=== PATIENT | male | born 1950 | race Caucasian/White ===

== ENCOUNTER 2016-07-17 16:14 | Observation (INO) | payer BC, MEDICARE ==
[2016-07-17] MEDS ORDERED: SODIUM CHLORIDE 0.9% 1,000 ML IV STA (16:15)
[2016-07-17] MEDS ORDERED: SODIUM CHLORIDE 0.9% 500 ML IV STA (16:15)
--- NOTE | 2016-07-17 17:12 | ED ---
General Adult HPI - General Chief complaint: Altered Mental Status Stated complaint: altered mental status Time Seen by Provider: 07/17/16 16:15 Source: patient, EMS, RN notes reviewed, old records reviewed Mode of arrival: EMS Limitations: altered mental status - History of Present Illness Initial comments: This is a 62-year-old male ER for evaluation of altered status, patient's altered mental status revulsion and unresponsiveness. Patient was sent to emergency room for evaluation by family after he was, acting in an [place] the [place], he seemed to be dazed, not with it, not paying attention. Patient is noticed to have fentanyl patches was taking pain medication at home - Related Data Home Medications Medication Instructions Recorded Confirmed Doxazosin Mesylate 8 mg PO DAILY 04/16/15 07/17/16 Naproxen Sodium [Naproxen Sodium 500 mg PO BID PRN 04/16/15 07/17/16 ER] Pregabalin [Lyrica] 75 mg PO BID 04/16/15 07/17/16 cloNIDine HCL [Catapres] 1 tab PO BID 04/16/15 07/17/16 fentaNYL 100MCG/HR PATCH 1 patch TOPICAL Q72H 04/16/15 07/17/16 [Duragesic 100MCG/HR] Cyclobenzaprine [Flexeril] 10 mg PO TID PRN 07/17/16 07/17/16 Dextroamphetamine/Amphetamine 30 mg PO BID PRN 07/17/16 07/17/16 [Adderall] traMADol HCL [Ultram] 50 mg PO QID PRN 07/17/16 07/17/16 traZODone HCL [Oleptro ER] 150 mg PO HS 07/17/16 07/17/16 Allergies Allergy/AdvReac Type Severity Reaction Status Date / Time No Known Allergies Allergy Verified 05/07/15 23:50 Review of Systems ROS Statement: Those systems with pertinent positive or pertinent negative responses have been documented in the HPI. ROS Other: All systems not noted in ROS Statement are negative. Past Medical History Past Medical History: Asthma, Osteoarthritis (OA) History of Any Multi-Drug Resistant Organisms: None Reported Past Surgical History: Back Surgery, Orthopedic Surgery Additional Past Surgical History / Comment(s): shoulder aND KNEE Past Psychological History: No Psychological Hx Reported Smoking Status: Current every day smoker Past Alcohol Use History: None Reported Past Drug Use History: None Reported General Exam Limitations: altered mental status General appearance: alert, in no apparent distress, lethargic Head exam: Present: atraumatic, normocephalic, normal inspection Eye exam: Present: normal appearance, PERRL, EOMI. Absent: scleral icterus, conjunctival injection, periorbital swelling ENT exam: Present: normal exam, mucous membranes moist Neck exam: Present: normal inspection. Absent: tenderness, meningismus, lymphadenopathy Respiratory exam: Present: normal lung sounds bilaterally. Absent: respiratory distress, wheezes, rales, rhonchi, stridor Cardiovascular Exam: Present: regular rate, normal rhythm, normal heart sounds. Absent: systolic murmur, diastolic murmur, rubs, gallop, clicks GI/Abdominal exam: Present: soft, normal bowel sounds. Absent: distended, tenderness, guarding, rebound, rigid Extremities exam: Present: normal inspection, full ROM, normal capillary refill. Absent: tenderness, pedal edema, joint swelling, calf tenderness Back exam: Present: normal inspection Neurological exam: Present: alert, oriented X3, CN II-XII intact Psychiatric exam: Present: normal affect, normal mood Skin exam: Present: warm, dry, intact, normal color. Absent: rash Course Vital Signs 07/17/16 07/17/16 07/17/16 16:37 17:02 17:40 Temperature 97.9 F Pulse Rate 83 75 73 Respiratory 18 18 18 Rate Blood Pressure 108/64 95/65 98/60 O2 Sat by Pulse 95 98 Oximetry 07/17/16 07/17/16 18:20 20:00 Temperature 98 F Pulse Rate 72 69 Respiratory 16 16 Rate Blood Pressure 125/70 111/74 O2 Sat by Pulse 96 97 Oximetry - Reevaluation(s) Reevaluation #1: 07/17/16 20:52 After waiting for patient to wake up, giving Narcan patient waking up patient became agitated and is continues to fall back asleep. Patient will need to be admitted for evaluation and treatment, wearing off of drugs EKG Findings - EKG Comments: EKG Findings:: EKG shows sinus rhythm rate of 77, WA 166, crit 34, QTC 439 Medical Decision Making - Medical Decision Making 65 male here for altered mental status, patient does have accidental polysubstance abuse with opiate ingestion, patient unresponsive, unable to respond enough to leave her wake up. Patient does respond to Narcan mildly but then falls back asleep. Patient will be admitted for further evaluation and treatment - Lab Data Result diagrams: 07/17/16 16:30 07/17/16 16:30 Lab Results 07/17/16 07/17/16 07/17/16 Range/Units 16:30 16:30 16:30 WBC 5.9 (3.8-10.6) k/uL RBC 4.00 L (4.30-5.90) m/uL Hgb 11.6 L (13.0-17.5) gm/dL Hct 36.9 L (39.0-53.0) % MCV 92.2 (80.0-100.0) fL MCH 29.0 (25.0-35.0) pg MCHC 31.5 (31.0-37.0) g/dL RDW 14.4 (11.5-15.5) % Plt Count 274 (150-450) k/uL Neutrophils % 62 % Lymphocytes % 27 % Monocytes % 6 % Eosinophils % 3 % Basophils % 1 % Neutrophils # 3.7 (1.3-7.7) k/uL Lymphocytes # 1.6 (1.0-4.8) k/uL Monocytes # 0.3 (0-1.0) k/uL Eosinophils # 0.2 (0-0.7) k/uL Basophils # 0.0 (0-0.2) k/uL PT (9.0-12.0) sec INR (<1.1) APTT (22.0-30.0) sec Sodium 143 (137-145) mmol/L Potassium 4.2 (3.5-5.1) mmol/L Chloride 106 (98-107) mmol/L Carbon Dioxide 26 (22-30) mmol/L Anion Gap 11 mmol/L BUN 36 H (9-20) mg/dL Creatinine 1.28 H (0.66-1.25) mg/dL Est GFR (MDRD) Af Amer >60 (>60 ml/min/1.73 sqM) Est GFR (MDRD) Non-Af 56 (>60 ml/min/1.73 sqM) Glucose 90 (74-99) mg/dL Plasma Lactic Acid Allen (0.7-2.0) mmol/L Calcium 9.5 (8.4-10.2) mg/dL Phosphorus 4.1 (2.5-4.5) mg/dL Magnesium 1.8 (1.6-2.3) mg/dL Total Bilirubin 0.4 (0.2-1.3) mg/dL AST 23 (17-59) U/L ALT 33 (21-72) U/L Alkaline Phosphatase 132 H (38-126) U/L Total Creatine Kinase 76 (55-170) U/L CK-MB (CK-2) 1.0 (0.0-2.4) ng/mL CK-MB (CK-2) Rel Index 1.3 Troponin I <0.012 (0.000-0.034) ng/mL Total Protein 6.9 (6.3-8.2) g/dL Albumin 3.8 (3.5-5.0) g/dL 07/17/16 07/17/16 Range/Units 16:30 16:30 WBC (3.8-10.6) k/uL RBC (4.30-5.90) m/uL Hgb (13.0-17.5) gm/dL Hct (39.0-53.0) % MCV (80.0-100.0) fL MCH (25.0-35.0) pg MCHC (31.0-37.0) g/dL RDW (11.5-15.5) % Plt Count (150-450) k/uL Neutrophils % % Lymphocytes % % Monocytes % % Eosinophils % % Basophils % % Neutrophils # (1.3-7.7) k/uL Lymphocytes # (1.0-4.8) k/uL Monocytes # (0-1.0) k/uL Eosinophils # (0-0.7) k/uL Basophils # (0-0.2) k/uL PT 10.3 (9.0-12.0) sec INR 1.0 (<1.1) APTT 24.8 (22.0-30.0) sec Sodium (137-145) mmol/L Potassium (3.5-5.1) mmol/L Chloride (98-107) mmol/L Carbon Dioxide (22-30) mmol/L Anion Gap mmol/L BUN (9-20) mg/dL Creatinine (0.66-1.25) mg/dL Est GFR (MDRD) Af Amer (>60 ml/min/1.73 sqM) Est GFR (MDRD) Non-Af (>60 ml/min/1.73 sqM) Glucose (74-99) mg/dL Plasma Lactic Acid Allen 0.6 L (0.7-2.0) mmol/L Calcium (8.4-10.2) mg/dL Phosphorus (2.5-4.5) mg/dL Magnesium (1.6-2.3) mg/dL Total Bilirubin (0.2-1.3) mg/dL AST (17-59) U/L ALT (21-72) U/L Alkaline Phosphatase (38-126) U/L Total Creatine Kinase (55-170) U/L CK-MB (CK-2) (0.0-2.4) ng/mL CK-MB (CK-2) Rel Index Troponin I (0.000-0.034) ng/mL Total Protein (6.3-8.2) g/dL Albumin (3.5-5.0) g/dL - Radiology Data Radiology results: report reviewed, image reviewed Disposition Clinical Impression: Altered mental status, Accidental drug overdose, Opiate misuse Disposition: ADMITTED IP TO THIS HOSP Condition: Fair Instructions: Altered Mental Status (ED) Referrals: Zenaida Avalos MD [Primary Care Provider] - 1-2 days
[2016-07-17 17:13] LABS: Basophils % (A) 1 %; CH 30.1; CHCM 32.7; Eosinophils # (A) 0.2 k/uL (0-0.7); Eosinophils % (A) 3 %; HCT 36.9 % (39.0-53.0); HDW 2.58; HGB 11.6 gm/dL (13.0-17.5); Luc # (Auto) 0.11; Luc % (Auto) 2; Lymphocytes # (A) 1.6 k/uL (1.0-4.8); Lymphocytes % (A) 27 %; MCHC 31.5 g/dL (31.0-37.0); MCV 92.2 fL (80.0-100.0); Mean Platelet Volume 7.1; Monocytes # (A) 0.3 k/uL (0-1.0); Monocytes % (A) 6 %; Neutrophils # (A) 3.7 k/uL (1.3-7.7); Neutrophils % (A) 62 %; RDW 14.4 % (11.5-15.5); WBC 5.9 k/uL (3.8-10.6); WBC (Perox) 5.87
[2016-07-17 17:21] LABS: ALT 33 U/L (21-72); AST 23 U/L (17-59); Alkaline Phosphatase 132 U/L (38-126); Anion Gap 11 mmol/L; Blood Urea Nitrogen 36 mg/dL (9-20); Calcium 9.5 mg/dL (8.4-10.2); Carbon Dioxide 26 mmol/L (22-30); Chloride 106 mmol/L (98-107); Glucose 90 mg/dL (74-99); Magnesium 1.8 mg/dL (1.6-2.3); Non-African American GFR(MDRD) 56 (>60 ml/min/1.73 sqM); Partial Thromboplastin Time 24.8 sec (22.0-30.0); Phosphorous 4.1 mg/dL (2.5-4.5); Potassium 4.2 mmol/L (3.5-5.1); Prothrombin Time 10.3 sec (9.0-12.0); Sodium 143 mmol/L (137-145); Total Bilirubin 0.4 mg/dL (0.2-1.3); Total Protein 6.9 g/dL (6.3-8.2)
--- NOTE | 2016-07-17 17:28 | CT ---
EXAMINATION TYPE: CT brain wo con DATE OF EXAM: 07/17/2016 5:23 PM COMPARISON: NONE HISTORY: Patient shows signs of altered mental status. CT DLP: 788.8 mGycm Automated exposure control for dose reduction was used. FINDINGS: Ventricles have normal size. There is no mass effect or midline shift. There is no sign of intracrani al hemorrhage. The calvarium is intact. IMPRESSION: Negative unenhanced head CT scan.
[2016-07-17 17:33] LABS: Creatine Kinase 76 U/L (55-170)
[2016-07-17] MEDS ORDERED: NALOXONE 0.4 MG/ML 1 ML VIAL IV STA (17:35)
[2016-07-17 17:46] LABS: Troponin I <0.012 ng/mL (0.000-0.034)
--- NOTE | 2016-07-17 17:52 | XR ---
EXAMINATION TYPE: XR chest 2V DATE OF EXAM: 07/17/2016 5:30 PM COMPARISON: 08/09/2013 HISTORY: Weakness and altered mental status TECHNIQUE: Frontal and lateral views of the chest are obtained. FINDINGS: There is interstitial edema. There is poor inspiration. There is a left shoulder prosthesi s. There is a neurostimulator in the mid thoracic spine. IMPRESSION: There is some pulmonary edema that appears new compare to old exam and could relate to a cute heart failure.
[2016-07-17] MEDS ORDERED: LORazepam 2 MG/ML SYRINGE IV STA (17:56)
[2016-07-17] MEDS ORDERED: NALOXONE 0.4 MG/ML 10 ML VIAL IVP STA (20:25)
[2016-07-17] MEDS ORDERED: SODIUM CHLORIDE 0.9% 1,000 ML IV ONE (20:50)
[2016-07-17 22:18] VITALS: BMI 23.3
[2016-07-18 07:45] VITALS: RESP 18
[2016-07-18] MEDS ORDERED: ENOXAPARIN 40 MG/0.4 ML SYRINGE SQ SCH (09:00)
[2016-07-18 12:05] VITALS: BP 97/51; PULSE 66; TEMP 98.2
--- NOTE | 2016-07-18 21:25 | P.HPIM ---
History of Present Illness H&P Date: 07/18/16 (Discharge summary as well) Chief Complaint: Change in mental status 65-year-old gentleman with history of chronic low back pain currently on multiple pain medications for relief was brought into the hospital due to odd behavior and slight confusion at a general store on the day of admission. Patient was initially evaluated in the ER. There was some concern of an opioid overdose. Patient was given a dose of Narcan slightly improved his mentation. However as patient has a fentanyl patch patient was admitted for overnight observation to ensure stability in the mental status. During the time of my examination patient was awake and able to answer questions appropriately. Was able to ambulate without any difficulty. States that he has a long history of chronic low back problems and has even received a neurostimulator. Patient denies using more medications and recommended and no change in his pain medication regimen has been made in the recent times. Patient stated he removed his fentanyl patch and replaced it a few hours prior to the current event. Denies having any chest pain, difficulty breathing, nausea, vomiting, abdominal pain, urinary urgency or frequency, diarrhea or constipation at this time. Review of Systems All systems: negative (Noted in HPI) Past Medical History Past Medical History: Asthma, Osteoarthritis (OA) History of Any Multi-Drug Resistant Organisms: None Reported Past Surgical History: Back Surgery, Orthopedic Surgery Additional Past Surgical History / Comment(s): Rt shoulder and unknown knee. Pain stimulator in back. Past Anesthesia/Blood Transfusion Reactions: No Reported Reaction Past Psychological History: No Psychological Hx Reported Smoking Status: Current every day smoker Past Alcohol Use History: None Reported Past Drug Use History: None Reported Medications and Allergies Home Medications Medication Instructions Recorded Confirmed Type Doxazosin Mesylate 8 mg PO DAILY 04/16/15 07/17/16 History Naproxen Sodium [Naproxen Sodium 500 mg PO BID PRN 04/16/15 07/17/16 History ER] Pregabalin [Lyrica] 75 mg PO BID 04/16/15 07/17/16 History cloNIDine HCL [Catapres] 1 tab PO BID 04/16/15 07/17/16 History fentaNYL 100MCG/HR PATCH 1 patch TOPICAL Q72H 04/16/15 07/17/16 History [Duragesic 100MCG/HR] Cyclobenzaprine [Flexeril] 10 mg PO TID PRN 07/17/16 07/17/16 History Dextroamphetamine/Amphetamine 30 mg PO BID PRN 07/17/16 07/17/16 History [Adderall] traMADol HCL [Ultram] 50 mg PO QID PRN 07/17/16 07/17/16 History traZODone HCL [Oleptro ER] 150 mg PO HS 07/17/16 07/17/16 History Allergies Allergy/AdvReac Type Severity Reaction Status Date / Time No Known Allergies Allergy Verified 05/07/15 23:50 Physical Exam Vitals: Vital Signs Temp Pulse Pulse Resp BP BP Pulse Ox 07/18/16 12:00 98.2 F 66 18 97/51 94 L 07/18/16 08:00 87 18 07/18/16 07:39 97.8 F 87 18 101/64 90 L 07/18/16 04:00 98.1 F 83 16 104/63 92 L 07/18/16 00:00 76 16 07/17/16 22:30 83 16 07/17/16 22:12 98.0 F 85 16 110/77 92 L 07/17/16 22:00 97 F L 69 18 121/69 97 Intake and Output 07/18/16 07/18/16 07/18/16 06:59 14:59 22:59 Intake Total 558 Balance 558 Intake: Oral 558 Other: Voiding Method Toilet # Voids 1 Gen Appearance alert oriented 3 in no distress Lungs currently clear to auscultation Abdomen is soft nontender no organomegaly Neurologically no focal motor or sensory deficit failure nurse to till 12 grossly intact. Pupils equal round reactive light and accommodation. Extraocular movements are intact Strength is 5 out of 5 in all extremities. Lower back exam there is no similar devise on the right lower back. Tenderness to palpation in multiple areas in the lumbar spine. Straight leg is positive. Heart regular rate and rhythm no murmurs appreciated Results CBC & Chem 7: 07/17/16 16:30 07/17/16 16:30 Thrombosis Risk Factor Assmnt - Choose All That Apply Each Risk Factor Represents 2 Points: Age 61-74 years Thrombosis Risk Factor Assessment Total Risk Factor Score: 2 Thrombosis Risk Factor Assessment Level: Low Risk Assessment and Plan Plan: #1 acute toxic encephalopathy secondary to opiate overdose #2 chronic low back pain #3 history of hypertension #4 peripheral neuropathy #5 underlying depression #6 chronic opiate use Plan Patient was monitored for 24 hours no change in medication is made. Patient is stable at time of discharge. This likely a combination of patient not removing his final patch on time. I'm continuing his other pain medications. Patient is on multiple short acting pain medications for refractory pain. Did discuss the patient should be seen by a pain specialist in order to change his regimen. Patient is also on Adderall to fight the consequences of pain medications. Patient may benefit from either been on long-acting morphine or even methadone for better control and to prevent further episodes. This was discussed with the patient and his daughter who agree with the plan. Patient is discharged home. Patient is to follow-up with Dr. Avalos
== END 2016-07-18 14:30 | disposition home or self-care (01) ==
LOC: EC 16:14 → 3OBS 20:50
PROVIDERS: ADMIT Hospitalist; ATTEND Hospitalist
DX: T40.601A Poisoning by unspecified narcotics, accidental (unintentional), initial encounter (principal); G92 Toxic encephalopathy; G89.29 Other chronic pain; M54.5 Low back pain; I10 Essential (primary) hypertension; G62.9 Polyneuropathy, unspecified; F32.9 Major depressive disorder, single episode, unspecified; M19.90 Unspecified osteoarthritis, unspecified site; F17.200 Nicotine dependence, unspecified, uncomplicated; Z79.899 Other long term (current) drug therapy; Z79.891 Long term (current) use of opiate analgesic; Y92.512 Supermarket, store or market as the place of occurrence of the external cause
CPT/HCPCS: 99285; 96374; 96375; 96376; 96361 ×2; 36415; 93005; 80053; 82550; 82553; 83605; 83735; 84100; 84484; 85025; 85610; 85730; 71020; 70450; G0378 ×2; J2060; J2310 ×2; J1650; 96372

== ENCOUNTER 2018-06-19 18:37 | Inpatient (IN) | payer MEDICARE ==
[2018-06-19 19:40] LABS: Glucose,Whole Blood 124 mg/dL (75-99)
[2018-06-19] MEDS ORDERED: SODIUM CHLORIDE 0.9% 1,000 ML IV ONE (19:43)
[2018-06-19] MEDS ORDERED: ACETAMINOPHEN IV (For NPO) 1,000 MG in EMPTY BAG 1 BAG IVPB STA (19:46)
[2018-06-19 19:58] LABS: Basophils % (A) 0 %; Eosinophils # (A) 0.1 k/uL (0-0.7); Eosinophils % (A) 2 %; HCT 34.4 % (39.0-53.0); HGB 11.5 gm/dL (13.0-17.5); Lymphocytes # (A) 0.6 k/uL (1.0-4.8); Lymphocytes % (A) 7 %; MCH 28.7 pg (25.0-35.0); MCHC 33.5 g/dL (31.0-37.0); MCV 85.7 fL (80.0-100.0); Mean Platelet Volume 6.4; Monocytes # (A) 0.3 k/uL (0-1.0); Monocytes % (A) 3 %; Neutrophils # (A) 8.1 k/uL (1.3-7.7); Neutrophils % (A) 88 %; Platelet Count 294 k/uL (150-450); RBC 4.01 m/uL (4.30-5.90); WBC 9.3 k/uL (3.8-10.6)
[2018-06-19 20:06] LABS: INR 0.9 (<1.2); Partial Thromboplastin Time 26.5 sec (22.0-30.0); Prothrombin Time 9.7 sec (9.0-12.0)
[2018-06-19 20:07] LABS: Albumin 4.1 g/dL (3.5-5.0); Calcium 9.2 mg/dL (8.4-10.2); Potassium 4.5 mmol/L (3.5-5.1); Total Bilirubin 0.5 mg/dL (0.2-1.3); Total Protein 7.5 g/dL (6.3-8.2)
[2018-06-19 20:11] LABS: Creatine Kinase 111 U/L (55-170)
--- NOTE | 2018-06-19 20:19 | CT ---
EXAMINATION: CT brain wo con DATE AND TIME: 06/19/2018 8:11 PM CLINICAL INDICATION: PHH; Pain TECHNIQUE: Standard departmental protocol.; 1107.4; COMPARISON: 07/17/2016 FINDINGS: The calvarium is intact. There is no intracranial hemorrhage. There is no intracranial mass or mass effect. No definite new intra-axial or extra-axial attenuation defect. The paranasal sinuses, middle ear cavities, and mastoid sinus air cells are clear. The orbits are unremarkable. IMPRESSION: NO ACUTE PROCESS.
[2018-06-19 20:22] LABS: Creatine Kinase MB 1.4 ng/mL (0.0-2.4); Troponin I <0.012 ng/mL (0.000-0.034)
--- NOTE | 2018-06-19 20:35 | ED ---
General Adult HPI - General Chief complaint: Fall Stated complaint: Fell Time Seen by Provider: 06/19/18 19:25 Source: patient Mode of arrival: wheelchair Limitations: no limitations - History of Present Illness Initial comments: 67-year-old male patient presents to the emergency department today for evaluation after expressing a fall. Daughter is in room and provides most of history as patient does exhibit altered mental status. Patient was walking through the store around 1745 this evening when he started stumbling and falling into things. Daughter states he then fell. She is unsure if he hit his head. He is reporting right shoulder and right hip pain. She states the patient has been acting differently since the fall. States that his speech has been somewhat slurred, his been sleeping more than usual, and complaining of increased pain. She states that he does have a history of COPD but she is unsure what other medical problems he may have. Patient states he does have a headache. Patient denies any recent rash, fever, chills, shortness breath, chest pain, abdominal pain, nausea, vomiting, diarrhea, constipation, dizziness , weakness, hematuria, dysuria, urinary urgency, urinary frequency, or any other complaints. - Related Data Home Medications Medication Instructions Recorded Confirmed Doxazosin Mesylate 8 mg PO DAILY 04/16/15 07/17/16 Naproxen Sodium [Naproxen Sodium 500 mg PO BID PRN 04/16/15 07/17/16 ER] Pregabalin [Lyrica] 75 mg PO BID 04/16/15 07/17/16 cloNIDine HCL [Catapres] 1 tab PO BID 04/16/15 07/17/16 fentaNYL 100MCG/HR PATCH 1 patch TOPICAL Q72H 04/16/15 07/17/16 [Duragesic 100MCG/HR] Cyclobenzaprine [Flexeril] 10 mg PO TID PRN 07/17/16 07/17/16 Dextroamphetamine/Amphetamine 30 mg PO BID PRN 07/17/16 07/17/16 [Adderall] traMADol HCL [Ultram] 50 mg PO QID PRN 07/17/16 07/17/16 traZODone HCL [Oleptro ER] 150 mg PO HS 07/17/16 07/17/16 Allergies Allergy/AdvReac Type Severity Reaction Status Date / Time No Known Allergies Allergy Verified 06/19/18 18:55 Review of Systems ROS Statement: Those systems with pertinent positive or pertinent negative responses have been documented in the HPI. ROS Other: All systems not noted in ROS Statement are negative. Past Medical History Past Medical History: Asthma, Osteoarthritis (OA) History of Any Multi-Drug Resistant Organisms: None Reported Past Surgical History: Back Surgery, Orthopedic Surgery Additional Past Surgical History / Comment(s): Rt shoulder and unknown knee. Pain stimulator in back. Past Anesthesia/Blood Transfusion Reactions: No Reported Reaction Past Psychological History: No Psychological Hx Reported Smoking Status: Current every day smoker Past Alcohol Use History: None Reported Past Drug Use History: None Reported General Exam Limitations: no limitations General appearance: in no apparent distress, lethargic, other (This is a well- developed, well-nourished adult male who appears lethargic, has difficulty staying awake. Vital signs upon presentation are temperature 100.4F, pulse 116 , respirations 24, blood pressure 127/74, pulse ox 91% on room air.) Eye exam: Present: other (Patient has fixed pupil on the right side at approximately 3 mm. Left pupil is briskly reactive to light.). Absent: nystagmus ENT exam: Present: normal exam, normal oropharynx, mucous membranes moist Neck exam: Present: normal inspection. Absent: tenderness, meningismus, lymphadenopathy Respiratory exam: Present: normal lung sounds bilaterally. Absent: respiratory distress, wheezes, rales, rhonchi, stridor Cardiovascular Exam: Present: regular rate, normal rhythm, normal heart sounds. Absent: systolic murmur, diastolic murmur, rubs, gallop, clicks GI/Abdominal exam: Present: soft, normal bowel sounds. Absent: distended, tenderness, guarding, rebound, rigid Extremities exam: Present: normal inspection, full ROM, tenderness (Tenderness to the right shoulder), normal capillary refill. Absent: pedal edema, joint swelling, calf tenderness Neurological exam: Present: CN II-XII intact. Absent: alert, oriented X3 ( Oriented 2) Psychiatric exam: Present: normal affect, normal mood Skin exam: Present: warm, dry, intact, normal color. Absent: rash Course Vital Signs 06/19/18 06/19/18 06/19/18 18:55 19:34 20:27 Temperature 100.4 F H 99.8 F H Pulse Rate 116 H 101 H Pulse Rate [ 115 H Solutions Architect ] Respiratory 24 20 18 Rate Blood Pressure 127/74 107/91 O2 Sat by Pulse 91 L 96 Oximetry 06/19/18 06/19/18 22:00 23:12 Temperature Pulse Rate 91 92 Pulse Rate [ Solutions Architect ] Respiratory 18 17 Rate Blood Pressure 109/69 107/64 O2 Sat by Pulse 95 95 Oximetry EKG Findings - EKG Comments: EKG Findings:: EKG obtained in 195 shows sinus tachycardia with a ventricular rate of 110, CA interval 154, QRS duration 82, QT 318, QTC 430. No evidence of ST elevation or depression. Medical Decision Making - Medical Decision Making 67-year-old male patient presented to the emergency department today with altered mental status, fever, and hypoxia. Patient was stumbling into things at the store and did have a fall prior to arrival. Physical examination did reveal coarse breath sounds. The patient was very drowsy and unable to stay awake during exam. Labs reviewed and did reveal a normal white blood cell count of 9.3, hemoglobin 11.5, BUN 30, creatinine 1.27, urinalysis showed trace protein but no other abnormalities, patient struck screen was positive for opiates. Did do x-rays of the right shoulder, right hip which were negative for any fractures. Chest x-ray did show pneumonia versus mass to the right lung , we did obtain computed tomography scan of the chest with contrast to differentiate, there was evidence of bronchopneumonia and a 5 cm mass in the right lung. Computed tomography scan of the brain was negative. I did discuss findings and results with the patient, he does remain quite drowsy but does answer questions appropriately. Vital signs have improved. We will start antibiotics for pneumonia. Blood cultures have been sent. Lactic acid was within normal range. Patient will be admitted to Dr. Benson with pulmonary consult. - Lab Data Result diagrams: 06/19/18 19:17 06/19/18 19:17 Lab Results 06/19/18 06/19/18 06/19/18 Range/Units 19:17 19:17 19:17 WBC 9.3 (3.8-10.6) k/uL RBC 4.01 L (4.30-5.90) m/uL Hgb 11.5 L (13.0-17.5) gm/dL Hct 34.4 L (39.0-53.0) % MCV 85.7 (80.0-100.0) fL MCH 28.7 (25.0-35.0) pg MCHC 33.5 (31.0-37.0) g/dL RDW 16.0 H (11.5-15.5) % Plt Count 294 (150-450) k/uL Neutrophils % 88 % Lymphocytes % 7 % Monocytes % 3 % Eosinophils % 2 % Basophils % 0 % Neutrophils # 8.1 H (1.3-7.7) k/uL Lymphocytes # 0.6 L (1.0-4.8) k/uL Monocytes # 0.3 (0-1.0) k/uL Eosinophils # 0.1 (0-0.7) k/uL Basophils # 0.0 (0-0.2) k/uL PT (9.0-12.0) sec INR (<1.2) APTT (22.0-30.0) sec Sodium 137 (137-145) mmol/L Potassium 4.5 (3.5-5.1) mmol/L Chloride 103 (98-107) mmol/L Carbon Dioxide 23 (22-30) mmol/L Anion Gap 11 mmol/L BUN 30 H (9-20) mg/dL Creatinine 1.27 H (0.66-1.25) mg/dL Est GFR (CKD-EPI)AfAm 67 (>60 ml/min/1.73 sqM) Est GFR (CKD-EPI)NonAf 58 (>60 ml/min/1.73 sqM) Glucose 101 H (74-99) mg/dL POC Glucose (mg/dL) (75-99) mg/dL POC Glu Fur Grader ID Plasma Lactic Acid Allen (0.7-2.0) mmol/L Calcium 9.2 (8.4-10.2) mg/dL Total Bilirubin 0.5 (0.2-1.3) mg/dL AST 24 (17-59) U/L ALT 18 L (21-72) U/L Alkaline Phosphatase 130 H (38-126) U/L Total Creatine Kinase 111 (55-170) U/L CK-MB (CK-2) 1.4 (0.0-2.4) ng/mL CK-MB (CK-2) Rel Index 1.3 Troponin I <0.012 (0.000-0.034) ng/mL Total Protein 7.5 (6.3-8.2) g/dL Albumin 4.1 (3.5-5.0) g/dL Urine Color Urine Appearance (Clear) Urine pH (5.0-8.0) Ur Specific [place] (1.001-1.035) Urine Protein (Negative) Urine Glucose (UA) (Negative) Urine Ketones (Negative) Urine Blood (Negative) Urine Nitrite (Negative) Urine Bilirubin (Negative) Urine Urobilinogen (<2.0) mg/dL Ur Leukocyte Esterase (Negative) Urine Opiates Screen (NotDetected) Ur Oxycodone Screen (NotDetected) Urine Methadone Screen (NotDetected) Ur Propoxyphene Screen (NotDetected) Ur Barbiturates Screen (NotDetected) U Tricyclic Antidepress (NotDetected) Ur Phencyclidine Scrn (NotDetected) Ur Amphetamines Screen (NotDetected) U Methamphetamines Scrn (NotDetected) U Benzodiazepines Scrn (NotDetected) Urine Cocaine Screen (NotDetected) U Marijuana (THC) Screen (NotDetected) 06/19/18 06/19/18 06/19/18 Range/Units 19:17 19:17 19:26 WBC (3.8-10.6) k/uL RBC (4.30-5.90) m/uL Hgb (13.0-17.5) gm/dL Hct (39.0-53.0) % MCV (80.0-100.0) fL MCH (25.0-35.0) pg MCHC (31.0-37.0) g/dL RDW (11.5-15.5) % Plt Count (150-450) k/uL Neutrophils % % Lymphocytes % % Monocytes % % Eosinophils % % Basophils % % Neutrophils # (1.3-7.7) k/uL Lymphocytes # (1.0-4.8) k/uL Monocytes # (0-1.0) k/uL Eosinophils # (0-0.7) k/uL Basophils # (0-0.2) k/uL PT 9.7 (9.0-12.0) sec INR 0.9 (<1.2) APTT 26.5 (22.0-30.0) sec Sodium (137-145) mmol/L Potassium (3.5-5.1) mmol/L Chloride (98-107) mmol/L Carbon Dioxide (22-30) mmol/L Anion Gap mmol/L BUN (9-20) mg/dL Creatinine (0.66-1.25) mg/dL Est GFR (CKD-EPI)AfAm (>60 ml/min/1.73 sqM) Est GFR (CKD-EPI)NonAf (>60 ml/min/1.73 sqM) Glucose (74-99) mg/dL POC Glucose (mg/dL) 124 H (75-99) mg/dL POC Glu Fur Grader ID Agustin Queenis Plasma Lactic Acid Allen 1.6 (0.7-2.0) mmol/L Calcium (8.4-10.2) mg/dL Total Bilirubin (0.2-1.3) mg/dL AST (17-59) U/L ALT (21-72) U/L Alkaline Phosphatase (38-126) U/L Total Creatine Kinase (55-170) U/L CK-MB (CK-2) (0.0-2.4) ng/mL CK-MB (CK-2) Rel Index Troponin I (0.000-0.034) ng/mL Total Protein (6.3-8.2) g/dL Albumin (3.5-5.0) g/dL Urine Color Urine Appearance (Clear) Urine pH (5.0-8.0) Ur Specific [place] (1.001-1.035) Urine Protein (Negative) Urine Glucose (UA) (Negative) Urine Ketones (Negative) Urine Blood (Negative) Urine Nitrite (Negative) Urine Bilirubin (Negative) Urine Urobilinogen (<2.0) mg/dL Ur Leukocyte Esterase (Negative) Urine Opiates Screen (NotDetected) Ur Oxycodone Screen (NotDetected) Urine Methadone Screen (NotDetected) Ur Propoxyphene Screen (NotDetected) Ur Barbiturates Screen (NotDetected) U Tricyclic Antidepress (NotDetected) Ur Phencyclidine Scrn (NotDetected) Ur Amphetamines Screen (NotDetected) U Methamphetamines Scrn (NotDetected) U Benzodiazepines Scrn (NotDetected) Urine Cocaine Screen (NotDetected) U Marijuana (THC) Screen (NotDetected) 06/19/18 Range/Units 20:45 WBC (3.8-10.6) k/uL RBC (4.30-5.90) m/uL Hgb (13.0-17.5) gm/dL Hct (39.0-53.0) % MCV (80.0-100.0) fL MCH (25.0-35.0) pg MCHC (31.0-37.0) g/dL RDW (11.5-15.5) % Plt Count (150-450) k/uL Neutrophils % % Lymphocytes % % Monocytes % % Eosinophils % % Basophils % % Neutrophils # (1.3-7.7) k/uL Lymphocytes # (1.0-4.8) k/uL Monocytes # (0-1.0) k/uL Eosinophils # (0-0.7) k/uL Basophils # (0-0.2) k/uL PT (9.0-12.0) sec INR (<1.2) APTT (22.0-30.0) sec Sodium (137-145) mmol/L Potassium (3.5-5.1) mmol/L Chloride (98-107) mmol/L Carbon Dioxide (22-30) mmol/L Anion Gap mmol/L BUN (9-20) mg/dL Creatinine (0.66-1.25) mg/dL Est GFR (CKD-EPI)AfAm (>60 ml/min/1.73 sqM) Est GFR (CKD-EPI)NonAf (>60 ml/min/1.73 sqM) Glucose (74-99) mg/dL POC Glucose (mg/dL) (75-99) mg/dL POC Glu Fur Grader ID Plasma Lactic Acid Allen (0.7-2.0) mmol/L Calcium (8.4-10.2) mg/dL Total Bilirubin (0.2-1.3) mg/dL AST (17-59) U/L ALT (21-72) U/L Alkaline Phosphatase (38-126) U/L Total Creatine Kinase (55-170) U/L CK-MB (CK-2) (0.0-2.4) ng/mL CK-MB (CK-2) Rel Index Troponin I (0.000-0.034) ng/mL Total Protein (6.3-8.2) g/dL Albumin (3.5-5.0) g/dL Urine Color Yellow Urine Appearance Clear (Clear) Urine pH 5.5 (5.0-8.0) Ur Specific [place] 1.020 (1.001-1.035) Urine Protein Trace H (Negative) Urine Glucose (UA) Negative (Negative) Urine Ketones Negative (Negative) Urine Blood Negative (Negative) Urine Nitrite Negative (Negative) Urine Bilirubin Negative (Negative) Urine Urobilinogen <2.0 (<2.0) mg/dL Ur Leukocyte Esterase Negative (Negative) Urine Opiates Screen Detected H (NotDetected) Ur Oxycodone Screen Not Detected (NotDetected) Urine Methadone Screen Not Detected (NotDetected) Ur Propoxyphene Screen Not Detected (NotDetected) Ur Barbiturates Screen Not Detected (NotDetected) U Tricyclic Antidepress Not Detected (NotDetected) Ur Phencyclidine Scrn Not Detected (NotDetected) Ur Amphetamines Screen Not Detected (NotDetected) U Methamphetamines Scrn Not Detected (NotDetected) U Benzodiazepines Scrn Not Detected (NotDetected) Urine Cocaine Screen Not Detected (NotDetected) U Marijuana (THC) Screen Not Detected (NotDetected) - Radiology Data Radiology results: report reviewed, image reviewed Two-view x-ray of the chest is obtained. Report was reviewed in its entirety. Impression by Dr. Gray shows dense consolidation within the right lower lobe as discussed. CT brain without contrast was obtained. Report was reviewed in its entirety. Impression by Dr. Gray shows no acute process. 2 views of the right hip and one view of the pelvis is obtained. Report was reviewed in its entirety. Impression by Dr. Wilfrid Montejo shows no acute process. 3 views of the right shoulder were obtained. Report was reviewed in its entirety. Impression by Dr. Wilfrid Montejo shows negative for fracture or malalignment. 5 cm masslike right lower lobe density, bronchogenic carcinoma versus right lower lobe pneumonia. CT chest with contrast was obtained. Report was reviewed in its entirety. Impression by Dr. Wilfrid Montejo shows CT findings consistent with multifocal bronchopneumonia. 5 cm right lower lung zone subpleural soft tissue mass, as discussed above. 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 Disposition Clinical Impression: Altered mental status, Bronchopneumonia, Hypoxia, Right lower lobe lung mass Disposition: ADMITTED IP TO THIS [facility] Condition: Serious Referrals: None,Stated [Primary Care Provider] - 1-2 days Decision to Admit Reason: Admit from EC Decision Date: 06/19/18 Decision Time: 23:25
[2018-06-19 21:02] LABS: Appearance,Urine Clear (Clear); Bilirubin,Urine Negative (Negative); Blood,Urine Negative (Negative); Color,Urine Yellow; Glucose,Urine (UA) Negative (Negative); Ketones,Urine Negative (Negative); Leukocyte Esterase,Urine Negative (Negative); Nitrite,Urine Negative (Negative); PH, Urine 5.5 (5.0-8.0); Protein,Urine Trace (Negative); Urobilinogen,Urine <2.0 mg/dL (<2.0)
--- NOTE | 2018-06-19 21:08 | XR ---
EXAMINATION: XR chest 2V DATE AND TIME: 06/19/2018 8:13 PM CLINICAL INDICATION: PHH; altered mental status TECHNIQUE: Departmental protocol COMPARISON: 07/17/2016 FINDINGS: There is a 5 cm dense consolidation in the right infrahilar position on the frontal radiogr aph, corresponding with the right lower lobe on the lateral radiograph. This is consistent with a cli nical diagnosis of right lower lobe bronchopneumonia. Would recommend 6-week follow-up PA and lateral chest radiograph to prove resolution of the findings. There are small ill-defined bilateral scattere d pulmonary opacities, likely subsegmental atelectasis. Lungs are otherwise unremarkable. The pleural spaces are negative. The cardiac silhouette is not enlarged. Aortic tortuosity redemonstrated. The skeletal structures and soft tissues are negative for acute findings. IMPRESSION: DENSE CONSOLIDATION WITHIN THE RIGHT LOWER LOBE DISCUSSED.
[2018-06-19 21:11] LABS: Amphetamine Screen,Urine Not Detected (NotDetected); Barbiturate Screen,Urine Not Detected (NotDetected); Benzodiazepines Screen,Urine Not Detected (NotDetected); Cocaine Screen,Urine Not Detected (NotDetected); Methadone Screen, Urine Not Detected (NotDetected); Opiate Screen,Urine Detected (NotDetected); Oxycodone Screen, Urine Not Detected (NotDetected); Phencyclidine Screen,Urine Not Detected (NotDetected); Tricyclic Antidepressant,Urine Not Detected (NotDetected); Urn Cannabinoid Scrn Not Detected (NotDetected)
--- NOTE | 2018-06-19 21:13 | XR ---
PROCEDURE: XR shoulder complete RT - 3V DATE AND TIME: 06/19/2018 8:14 PM CLINICAL INDICATION: PHH; Pain TECHNIQUE: Department protocol COMPARISON: None FINDINGS: There is no fracture or malalignment. Prominent osteoarthritis changes at the AC joint are noted. The soft tissues are unremarkable. The right lower lobe consolidation appears more masslike on this study, raising bronchogenic carcinom a as a differential consideration. Contrast chest CT can't differentiate neoplasm from pneumonia. IMPRESSION: 1. Negative for fracture or malalignment. 2. 5 CM MASS-LIKE RLL DENSITY: Bronchogenic carcinoma versus right lower lobe pneumonia.
[2018-06-19] MEDS ORDERED: RX INFO: IV CONTRAST WAS GIVEN 1 EACH MISC MISCELLANE PRN (21:16)
--- NOTE | 2018-06-19 21:17 | XR ---
PROCEDURE: XR Hip RT and AP Pelvis - 3V DATE AND TIME: 06/19/2018 8:19 PM CLINICAL INDICATION: PHH; Pain TECHNIQUE: Department protocol COMPARISON: None FINDINGS: There is no fracture or malalignment. The soft tissues are unremarkable. IMPRESSION: NO ACUTE PROCESS. Note: The abnormal results of chest XR and right shoulder XR discussed with ordering provider just no w.
--- NOTE | 2018-06-19 22:06 | CT ---
EXAMINATION TYPE: CT chest w con DATE OF EXAM: 06/19/2018 COMPARISON: CT 11/06/2009 HISTORY: Fall CT DLP: 357.5 mGycm Automated exposure control for dose reduction was used. CONTRAST: CT scan of the chest is performed with IV Contrast, patient injected with 100 mL of Isovue 300. FINDINGS: AIRWAYS: Unremarkable. LUNGS: (1) There are multifocal ill-defined added opacities, with a pattern suggesting multifocal bro nchopneumonia. (2) In the right lower lung zone there is a subpleural 5 cm ill-defined mass associate d with focal pleural thickening, and having the appearance of rounded atelectasis - though neoplasm c annot be radiographically excluded. This finding is new since the prior CT and, therefore, would malou mmend comparison with any outside CT which may have occurred between 2009 and the present. If not bassem ilable, would advise consideration of PET/CT characterization. PLEURAL SPACES: As stated, relatively thin anterior right pleural thickening noted anterior to the an terior segment right upper lobe and the right middle lobe. This pleural thickening is smooth and the overlying ribs are negative. Pleural spaces otherwise negative. MEDIASTINUM: There is no pericardial effusion, but mild cardiomegaly and prominent coronary calcific ations are noted. There is mild aneurysmal dilation of the ascending aorta, measuring 4.2 cm caliber. There are no greater than 1 cm hilar or mediastinal lymph nodes. Subcarinal calcification noted, con sistent with healed granulomatous process. SKELETAL STRUCTURES: No acute findings. OTHER: No additional significant abnormality is seen. IMPRESSION: 1. CT FINDINGS CONSISTENT WITH MULTIFOCAL BRONCHOPNEUMONIA. 2. 5 CM RIGHT LOWER LUNG ZONE SUBPLEURAL SOFT TISSUE MASS, DISCUSSED ABOVE. 3. MILD ANEURYSMAL DILATION OF ASCENDING AORTA.
[2018-06-19] MEDS ORDERED: PIPERACILLIN-TAZOBACTAM 3.375 GM in SODIUM CHLORIDE 0.9% 100 ML IVPB STA (23:02)
[2018-06-19] MEDS ORDERED: LEVOFLOXACIN 750MG-D5W PMX 750 MG in DEXTROSE/WATER 1 150ML.BAG IVPB STA (23:02)
[2018-06-19] MEDS ORDERED: PNEUMONIA PROTOCOL UTILIZED 1 EACH MISC PO PRN (23:11)
[2018-06-19] MEDS ORDERED: ALBUTEROL NEBULIZED 2.5 MG/3 ML INHALATION PRN (23:11)
[2018-06-19] MEDS ORDERED: ACETAMINOPHEN TAB 325 MG TAB PO PRN (23:15)
[2018-06-19] MEDS ORDERED: methylPREDNISolone SOD SUCCI 125 MG/2 ML VIAL IV STA (23:15)
[2018-06-20] MEDS: SODIUM CHLORIDE 0.9% 1,000 ML IV SCH ×3 (00:25→20:24)
[2018-06-20] MEDS ORDERED: NALOXONE 0.4 MG/ML 1 ML VIAL IV PRN (01:10)
--- NOTE | 2018-06-20 01:26 | P.HPIM ---
History of Present Illness H&P Date: 06/19/18 Chief Complaint: Altered mental status 67-year-old male was brought in by his family due to altered mental status and falling. Patient was lethargic and unable to provide any meaningful history at this time history was obtained by reviewing the chart and attempting to talk to the patient and family. Unclear past medical history but includes COPD. Patient is not sure why he is in the hospital but he does reports coughing and feeling sick for a few days. Like he was with his daughter shopping at a store this evening when he started to fall and stumble around head injuries questionable during the fall. Patient was complaining of shoulder pain and hip pain after the fall. But then he started to act differently and seems to be confused. Per the family patient has been sleeping more than usual recently Currently patient is lethargic but arousable he denies any chest pain or trouble breathing he denies any headache he does report shoulder pain. He denies any nausea or vomiting or abdominal pain he denies any chest pain. Patient admits to coughing for 4 days now denies any hemoptysis. X-ray imaging was reviewed showed no acute fractures. Computed tomography scan of the head showed no acute process. CT of the chest suggested right lung mass and bronchopneumonia. Review of Systems Pertinent positives as noted in HPI. All other systems were reviewed and are negative Past Medical History Past Medical History: Asthma, COPD, Osteoarthritis (OA) History of Any Multi-Drug Resistant Organisms: None Reported Past Surgical History: Back Surgery, Orthopedic Surgery Additional Past Surgical History / Comment(s): Rt shoulder and unknown knee. Pain stimulator in back. Past Anesthesia/Blood Transfusion Reactions: No Reported Reaction Past Psychological History: No Psychological Hx Reported Smoking Status: Current every day smoker Past Alcohol Use History: None Reported Past Drug Use History: None Reported - Past Family History Family Family Medical History: Unable to Obtain Medications and Allergies Home Medications Medication Instructions Recorded Confirmed Type Doxazosin Mesylate 8 mg PO DAILY 04/16/15 07/17/16 History Naproxen Sodium [Naproxen Sodium 500 mg PO BID PRN 04/16/15 07/17/16 History ER] Pregabalin [Lyrica] 75 mg PO BID 04/16/15 07/17/16 History cloNIDine HCL [Catapres] 1 tab PO BID 04/16/15 07/17/16 History fentaNYL 100MCG/HR PATCH 1 patch TOPICAL Q72H 04/16/15 07/17/16 History [Duragesic 100MCG/HR] Cyclobenzaprine [Flexeril] 10 mg PO TID PRN 07/17/16 07/17/16 History Dextroamphetamine/Amphetamine 30 mg PO BID PRN 07/17/16 07/17/16 History [Adderall] traMADol HCL [Ultram] 50 mg PO QID PRN 07/17/16 07/17/16 History traZODone HCL [Oleptro ER] 150 mg PO HS 07/17/16 07/17/16 History Allergies Allergy/AdvReac Type Severity Reaction Status Date / Time No Known Allergies Allergy Verified 06/19/18 18:55 Physical Exam Vitals: Vital Signs Temp Pulse Pulse Resp BP Pulse Ox 06/20/18 00:12 87 18 100/68 97 06/19/18 23:12 92 17 107/64 95 06/19/18 22:00 91 18 109/69 95 06/19/18 20:27 99.8 F H 101 H 18 107/91 96 06/19/18 19:34 115 H 20 06/19/18 18:55 100.4 F H 116 H 24 127/74 91 L Intake and Output 06/19/18 06/19/18 06/20/18 14:59 22:59 06:59 Other: Weight 73.482 kg Constitutional: Patient is lethargic but arousable seems to be confused cooperates with exam and answers questions with limited information Eyes: Anicteric sclerae, moist conjunctiva, no lid-lag Left pupil is reactive to light, right pupil is not reactive ENMT: NC/AT Oropharynx clear, no erythema, or exudates Neck: Supple, FROM, no masses, or JVD No carotid bruits No thyromegaly Lungs: Diffusely coarse rhonchorous breathing with bilateral rales at lung basis Clear to percussion Normal respiratory effort, no accessory muscle use Cardiovascular: Heart regular in rate and rhythm, No murmurs, gallops, or rubs No peripheral edema Abdominal: Soft Nontender, no guarding, rebound or rigidity Abdomen moving with respiration Normoactive bowel sounds No hepatomegaly, No splenomegaly No palpable mass No abdominal wall hernia noted Skin: Normal temperature, tone, texture, turgor No induration No subcutaneous nodules No rash, lesions No ulcers Extremities: No digital cyanosis No clubbing Pedal pulses intact and symmetrical Radial pulses intact and symmetrical No calf tenderness Psychiatric: Lethargic but easily arousable, oriented to person and place not to time Neuro Muscles Strength 4/5 in all 4 extremities Sensation to light touch grossly present throughout Cranial nerves II-XII grossly intact No focal sensory deficits Lymphatics: no palpable cervical or supraclavicular , or inguinal lymph nodes Results CBC & Chem 7: 06/19/18 19:17 06/19/18 19:17 Labs: Abnormal Lab Results - Last 24 Hours (Table) 06/19/18 06/19/18 06/19/18 Range/Units 19:17 19:17 19:26 RBC 4.01 L (4.30-5.90) m/uL Hgb 11.5 L (13.0-17.5) gm/dL Hct 34.4 L (39.0-53.0) % RDW 16.0 H (11.5-15.5) % Neutrophils # 8.1 H (1.3-7.7) k/uL Lymphocytes # 0.6 L (1.0-4.8) k/uL BUN 30 H (9-20) mg/dL Creatinine 1.27 H (0.66-1.25) mg/dL Glucose 101 H (74-99) mg/dL POC Glucose (mg/dL) 124 H (75-99) mg/dL ALT 18 L (21-72) U/L Alkaline Phosphatase 130 H (38-126) U/L Urine Protein (Negative) Urine Opiates Screen (NotDetected) 06/19/18 Range/Units 20:45 RBC (4.30-5.90) m/uL Hgb (13.0-17.5) gm/dL Hct (39.0-53.0) % RDW (11.5-15.5) % Neutrophils # (1.3-7.7) k/uL Lymphocytes # (1.0-4.8) k/uL BUN (9-20) mg/dL Creatinine (0.66-1.25) mg/dL Glucose (74-99) mg/dL POC Glucose (mg/dL) (75-99) mg/dL ALT (21-72) U/L Alkaline Phosphatase (38-126) U/L Urine Protein Trace H (Negative) Urine Opiates Screen Detected H (NotDetected) Assessment and Plan Assessment: 67-year-old male very poor historian admitted as an inpatient with anticipated length of stay more than 48 hours due to sepsis secondary to pneumonia and acute metabolic encephalopathy with confusion and falling. Patient unable to provide any meaningful history at this time. CT of the head was negative for any acute process. CT of the chest showed suggestion of pneumonia and 5 cm lung mass Plan: Sepsis secondary to underlying pneumonia Community-acquired pneumonia Incidental new finding of right lower lobe lung mass Pulmonary consult empiric Antibiotics Blood culture sputum culture Breathing treatments Lung mass is concerning for malignancy consider close follow-up with CAT scan to confirm resolution after treatment of underlying pneumonia, with a 4-6 week Acute metabolic encephalopathy secondary to underlying sepsis and pneumonia Check ABG CT of the head is negative Mild anemia Continue to monitor hemoglobin no evidence of bleeding at this time Elevated creatinine could be secondary to CKD versus acute kidney injury Patient has 1 creatinine value in the past July 2016 which is within the same range of this current one Monitor urine output Monitor renal function DVT prophylaxis on heparin subcu 3 times a day Medication list needs to be verified Surrogate decision-maker: Patient daughter/granddaughter CODE STATUS: Full code Discussed with: Patient, ER, RN Anticipated discharge: 48-[address]: Pending clinical course A total of 70 minutes was spent on the care of this complex patient more than 50 % of the time was spent in counseling and care coordination.
[2018-06-20 02:14] LABS: ABG Base Excess 0.6 mmol/L; ABG HCO3 26 mmol/L (21-25); ABG Oxygen Saturation 97.1 % (94-97); ABG PCO2 42 mmHg (35-45); ABG PH 7.39 (7.35-7.45); ABG PO2 82 mmHg (83-108); ABG TCO2 27 mmol/L (19-24)
[2018-06-20] MEDS: methylPREDNISolone SOD SUCCI 125 MG/2 ML VIAL IV SCH ×4 (02:59→17:32)
--- NOTE | 2018-06-20 07:06 | XR ---
EXAMINATION TYPE: XR chest 2V DATE OF EXAM: 06/20/2018 COMPARISON: 06/19/2018 INDICATION: Pneumonia TECHNIQUE: Frontal and lateral views of the chest are obtained. FINDINGS: The heart size is normal. The pulmonary vasculature is slightly prominent.. Mild infiltrate is at the right lower lobe. The patient is rotated slightly to the right.. IMPRESSION: 1. Mild right lower lobe infiltrate. There is diffuse increased lung markings and pulmonary vascular prominence. Correlate for some atypical pulmonary edema or right lower lobe pneumonia.
[2018-06-20] MEDS: ALBUTEROL NEBULIZED 2.5 MG/3 ML INHALATION SCH ×2 (07:26→11:42)
[2018-06-20] MEDS: HEPARIN SODIUM,PORCINE 5,000 UNIT/ML 1 ML VIAL SQ SCH ×2 (09:33→17:03)
[2018-06-20] MEDS: PIPERACILLIN-TAZOBACTAM 3.375 GM in SODIUM CHLORIDE 0.9% 100 ML IVPB SCH ×2 (10:47→20:23)
--- NOTE | 2018-06-20 12:56 | P.PN ---
Subjective Progress Note Date: 06/20/18 Principal diagnosis: 67-year-old male very poor historian admitted as an inpatient with anticipated length of stay more than 48 hours due to sepsis secondary to pneumonia and acute metabolic encephalopathy with confusion and falling. Patient initially was unable to provide any meaningful history. CT of the head was negative for any acute process. CT of the chest showed suggestion of pneumonia and 5 cm lung mass Patient seen and examined at bedside, reports to feeling a little bit better. Shortness of breath is improved, patient still's sounding wheezy with coarse breath sounds. Patient denies any chest pain subjective fevers chills or night sweats. No acute events overnight. Patient does not wear oxygen at baseline Objective - Vital Signs Vital signs: Vital Signs Temp 97.4 F L 06/20/18 08:22 Pulse 84 06/20/18 08:22 Resp 14 06/20/18 08:22 BP 123/64 06/20/18 08:22 Pulse Ox 95 06/20/18 08:22 Intake & Output 06/19/18 06/20/18 06/20/18 18:59 06:59 18:59 Output Total 200 Balance -200 Weight 73.482 kg 74 kg Output: Urine 200 - Exam Constitutional: No acute distress, conversant, pleasant Eyes: Anicteric sclerae, moist conjunctiva, no lid-lag, PERRLA ENMT: NC/AT,Oropharynx clear, no erythema, exudates Neck:Supple, FROM, no masses, or JVD, No carotid bruits; No thyromegaly Lungs: Diminished in the bases with R lower rhonchi Normal respiratory effort , no accessory muscle use on 2 L nasal cannula Cardiovascular: Heart regular in rate and rhythm, No murmurs, gallops, or rubs no peripheral edema Abdominal: Soft Nontender, nom distended, no guarding, no rebound or rigidity, Normoactive bowel sounds No hepatomegaly, No splenomegaly, No palpable mass No abdominal wall hernia noted Skin: Normal temperature, tone, texture, turgor, No induration No subcutaneous nodules, No rash, lesions, No ulcers Extremities:No digital cyanosis No clubbing, Pedal pulses intact and symmetrical Radial pulses intact and symmetrical Normal gait and station, No calf tenderness Psychiatric: Alert and oriented to person, place and time, Appropriate affect Intact judgement Neuro: Muscles Strength 5/5 in all 4 extremities, Sensation to light touch grossly present throughout, Cranial nerves II-XII grossly intact. No focal sensory deficits - Labs CBC & Chem 7: 06/19/18 19:17 06/19/18 19:17 Labs: Abnormal Lab Results - Last 24 Hours (Table) 06/19/18 06/19/18 06/19/18 Range/Units 19:17 19:17 19:26 RBC 4.01 L (4.30-5.90) m/uL Hgb 11.5 L (13.0-17.5) gm/dL Hct 34.4 L (39.0-53.0) % RDW 16.0 H (11.5-15.5) % Neutrophils # 8.1 H (1.3-7.7) k/uL Lymphocytes # 0.6 L (1.0-4.8) k/uL ABG pO2 (83-108) mmHg ABG HCO3 (21-25) mmol/L ABG Total CO2 (19-24) mmol/L ABG O2 Saturation (94-97) % BUN 30 H (9-20) mg/dL Creatinine 1.27 H (0.66-1.25) mg/dL Glucose 101 H (74-99) mg/dL POC Glucose (mg/dL) 124 H (75-99) mg/dL ALT 18 L (21-72) U/L Alkaline Phosphatase 130 H (38-126) U/L Urine Protein (Negative) Urine Opiates Screen (NotDetected) 06/19/18 06/20/18 Range/Units 20:45 02:11 RBC (4.30-5.90) m/uL Hgb (13.0-17.5) gm/dL Hct (39.0-53.0) % RDW (11.5-15.5) % Neutrophils # (1.3-7.7) k/uL Lymphocytes # (1.0-4.8) k/uL ABG pO2 82 L (83-108) mmHg ABG HCO3 26 H (21-25) mmol/L ABG Total CO2 27 H (19-24) mmol/L ABG O2 Saturation 97.1 H (94-97) % BUN (9-20) mg/dL Creatinine (0.66-1.25) mg/dL Glucose (74-99) mg/dL POC Glucose (mg/dL) (75-99) mg/dL ALT (21-72) U/L Alkaline Phosphatase (38-126) U/L Urine Protein Trace H (Negative) Urine Opiates Screen Detected H (NotDetected) Assessment and Plan Assessment: 67-year-old male very poor historian admitted as an inpatient with anticipated length of stay more than 48 hours due to sepsis secondary to pneumonia and acute metabolic encephalopathy with confusion and falling. Patient unable to provide any meaningful history at this time. CT of the head was negative for any acute process. CT of the chest showed suggestion of pneumonia and 5 cm lung mass Plan: Sepsis secondary to underlying pneumonia Community-acquired pneumonia Incidental new finding of right lower lobe lung mass Pulmonary consult empiric Antibiotics Blood culture sputum culture Breathing treatments Lung mass is concerning for malignancy consider close follow-up with CAT scan to confirm resolution after treatment of underlying pneumonia, with a 4-6 week Acute metabolic encephalopathy secondary to underlying sepsis and pneumonia Check ABG CT of the head is negative Mild anemia Continue to monitor hemoglobin no evidence of bleeding at this time Elevated creatinine could be secondary to CKD versus acute kidney injury Patient has 1 creatinine value in the past July 2016 which is within the same range of this current one Monitor urine output Monitor renal function DVT prophylaxis on heparin subcu 3 times a day Medication list needs to be verified Surrogate decision-maker: Patient daughter/granddaughter CODE STATUS: Full code Discussed with: Patient, ER, RN Anticipated discharge: 48-[address]: Pending clinical course A total of 70 minutes was spent on the care of this complex patient more than 50 % of the time was spent in counseling and care coordination. (1) Sepsis Narrative/Plan: * Secondary to community acquired pneumonia * Patient afebrile, without leukocytosis * Continue empiric IV antibiotics with Levaquin and Zosyn Current Visit: Yes Status: Acute Code(s): A41.9 - SEPSIS, UNSPECIFIED ORGANISM SNOMED Code(s): 66723678 (2) Bronchopneumonia Narrative/Plan: * Continue with treatment regimen as above Current Visit: Yes Status: Acute Code(s): J18.0 - BRONCHOPNEUMONIA, UNSPECIFIED ORGANISM SNOMED Code(s): 143182808 (3) Metabolic encephalopathy Narrative/Plan: * CT of the head negative for any acute intracranial pathology * Likely secondary to underlying sepsis and pneumonia Current Visit: Yes Status: Acute Code(s): G93.41 - METABOLIC ENCEPHALOPATHY SNOMED Code(s): 84416646 (4) Right lower lobe lung mass Narrative/Plan: * Pulmonary is been consulted for further recommendations Current Visit: Yes Status: Acute Code(s): R91.8 - OTHER NONSPECIFIC ABNORMAL FINDING OF LUNG FIELD SNOMED Code(s): 399571389 (5) Acute exacerbation of COPD with asthma Narrative/Plan: * Continue systemic steroids Solu-Medrol 60 mg IV 4 times a day, with scheduled and when necessary bronchodilator DuoNeb breathing treatments * We'll plan to add Perforomist and Mucinex a current regimen * Pulmonary has been consulted for further recommendations Current Visit: Yes Status: Acute Code(s): J44.1 - CHRONIC OBSTRUCTIVE PULMONARY DISEASE W (ACUTE) EXACERBATION; J45.901 - UNSPECIFIED ASTHMA WITH ( ACUTE) EXACERBATION SNOMED Code(s): 8026448519158 Plan: Anticipated discharge * 2 To 3 days
--- NOTE | 2018-06-20 13:15 | CDI ---
Documentation Clarification Form Date: 06/20/2018 12:45:28 PM From: Emeli Hartman RN, CCDS Admit Date: 06/19/2018 11:25:00 PM Patient Name: Matthieu Thomas Visit Number: [id number] ATTENTION: The Clinical Documentation Specialists (CDI) and [facility] Coding Staff appreciate your assistance in clarifying documentation. Please respond to the clarification below the line at the bottom and electronically sign. The CDI & [facility] Coding staff will review the response and follow-up if needed. Please note: Queries are made part of the Legal Health Record. If you have any questions, please contact the author of this message via ITS. Dr. Alejandro Rascon Pneumonia was documented in your H&P and requires further specificity. History/Risk Factors: COPD, Asthma, OA, unreliable historian Clinical Indicators: 06/19 H&P: "anticipated length of stay more than 48 hours due to sepsis secondary to pneumonia and acute metabolic encephalopathy with confusion and falling. Community-acquired pneumonia Vital signs: temp 100.4, Hr 116, RR 24, B/P 127/74, spo2 91% ra WBC/Left shift: 9.3/8.1 06/20 CXR: Correlate for some atypical pulmonary edema or right lower lobe pneumonia. 06/19 H&P Lung/Breathing assessment: "Diffusely coarse rhonchorous breathing with bilateral rales at lung basis. Clear to percussion. Normal respiratory effort, no accessory muscle use. Treatment: IV Solumedrol tapering dose Antibiotics: 750 mg IVPB Levaquin q 24 hrs , Zosyn 3.375 gm IVPB q 8 hrs O2: RA increased to 2L nasal cannula, increased to 4L NC Breathing TX: Ventolin INH QID 1L IVF Bolus In order to capture the severity of condition, please clarify if the condition signifies and you are treating for: Unable to determine at this time (Last Revision: October 2017) MTDD
[2018-06-20] MEDS ORDERED: IPRATROPIUM-ALBUTEROL 3 ML NEB INHALATION PRN (14:14)
--- NOTE | 2018-06-20 14:41 | P.CNPUL ---
History of Present Illness Consult date: 06/20/18 Requesting physician: Vick Benson Reason for consult: dyspnea, cough, pneumonia, abnormal CXR/CT Chief complaint: Altered mental status, weakness, falling, cough, chills History of present illness: This 67-year-old white male patient with no significant medical history other than COPD, osteoarthritis, who was brought to the emergency department by his family for evaluation weakness, a fall, confusion, lethargy, cough, with phlegm production, chills. Patient states his been coughing for last 2 or 3 weeks, he was out shopping yesterday on 06/19/2018 with his daughter, and suddenly he stumbled and fell into things. Patient reported right shoulder and right hip pain. He has had some chills, denied any chest pain, he is producing yellow sputum. No hemoptysis. Patient is a current smoker, currently smoking half a pack to 1 pack a day over 20 years. No nausea, no vomiting, no diarrhea, no abdominal pain. In the emergency department chest x-ray showed right infrahilar consolidation and bilateral scattered pulmonary opacities. CT chest was completed and showed multifocal opacities consistent iwth multifocal bronchopneumonia, 5 cm ill-defined mass associated with focal pleural thickening , having the appearance of rounded atelectasis, although neoplasm could not be radiographically excluded. EEG showed sinus tach at acute ischemic changes. WBC was 9.3, hemoglobin is 11.5, lites were within normal limits, B1 is 30 and creatinine is 1.27. Troponin was negative 1, urinalysis was negative, urine drug screen detected opiates, the patient is on [place] and fentanyl patch for his chronic pain related to osteoarthritis. Never seen a document management specialist in the past, he is not on any oxygen or inhalers at home. Did have a low-grade fever and presentation with a temp of 100.4F, has been afebrile since. He is covered with a combination of Levaquin and Zosyn, IV steroids, and nebulized bronchodilators. Review of Systems All systems: negative Constitutional: Denies chills, Denies fever Eyes: denies blurred vision, denies pain Ears, nose, mouth and throat: Denies headache, Denies sore throat Cardiovascular: Denies chest pain, Denies shortness of breath Respiratory: Reports cough with sputum, Reports dyspnea, Denies cough Gastrointestinal: Denies abdominal pain, Denies diarrhea, Denies nausea, Denies vomiting Musculoskeletal: Denies myalgias Integumentary: Denies pruritus, Denies rash Neurological: Reports balance difficulties, Reports change in mentation, Denies numbness, Denies weakness Psychiatric: Denies anxiety, Denies depression Endocrine: Denies fatigue, Denies weight change Past Medical History Past Medical History: Asthma, COPD, Osteoarthritis (OA) History of Any Multi-Drug Resistant Organisms: None Reported Past Surgical History: Back Surgery, Orthopedic Surgery Additional Past Surgical History / Comment(s): Rt shoulder and unknown knee. Pain stimulator in back. Past Anesthesia/Blood Transfusion Reactions: No Reported Reaction Past Psychological History: No Psychological Hx Reported Smoking Status: Current every day smoker Past Alcohol Use History: None Reported Past Drug Use History: None Reported - Past Family History Family Family Medical History: Unable to Obtain Medications and Allergies Home Medications Medication Instructions Recorded Confirmed Type Doxazosin Mesylate 8 mg PO BID 04/16/15 06/20/18 History Celecoxib [CeleBREX] 200 mg PO DAILY 06/20/18 06/20/18 History HYDROcodone/APAP 10-325MG [[place] 1 tab PO BID PRN 06/20/18 06/20/18 History 10-325] Pregabalin [Lyrica] 150 mg PO BID 06/20/18 06/20/18 History fentaNYL [Duragesic 75MCG/HR] 1 patch TRANSDERM Q72H 06/20/18 06/20/18 History Allergies Allergy/AdvReac Type Severity Reaction Status Date / Time No Known Allergies Allergy Verified 06/20/18 08:13 Physical Exam Vitals: Vital Signs Temp Pulse Pulse Resp BP BP Pulse Ox 06/20/18 11:55 89 06/20/18 11:42 89 06/20/18 08:22 97.4 F L 84 14 123/64 95 06/20/18 07:41 84 06/20/18 07:29 83 06/20/18 07:00 87 18 109/71 96 06/20/18 04:30 80 19 92/53 97 06/20/18 02:28 98.2 F 83 17 122/79 97 06/20/18 00:12 87 18 100/68 97 06/19/18 23:13 95 06/19/18 23:12 92 17 107/64 95 12/11/18 22:00 91 18 109/69 95 06/19/18 20:27 99.8 F H 101 H 18 107/91 96 06/19/18 19:34 115 H 20 06/19/18 18:55 100.4 F H 116 H 24 127/74 91 L Intake and Output 06/19/18 06/20/18 06/20/18 22:59 06:59 14:59 Intake Total 100 Output Total 200 Balance -200 100 Intake: Intake, IV Titration 100 Amount Piperacillin-Tazobactam 3 100 .375 gm In Sodium Chloride 0.9% 100 ml @ 25 mls/hr IVPB Q8H [facility] Rx#: [id number] Output: Urine 200 Other: Weight 73.482 kg 74 kg GENERAL EXAM: Alert, pleasant 67-year-old white male, comfortable in no apparent distress. HEAD: Normocephalic/atraumatic. EYES: Normal reaction of pupils, equal size. Conjunctiva pink, sclera white. NOSE: Clear with pink turbinates. THROAT: No erythema or exudates. NECK: No masses, no JVD, no thyroid enlargement, no adenopathy. CHEST: No chest wall deformity. Symmetrical expansion. LUNGS: Equal air entry with coarse basilar crackles CVS: Regular rate and rhythm, normal S1 and S2, no gallops, no murmurs, no rubs ABDOMEN: Soft, nontender. No hepatosplenomegaly, normal bowel sounds, no guarding or rigidity. EXTREMITIES: No clubbing, no edema, no cyanosis, 2+ pulses and upper and lower extremities. MUSCULOSKELETAL: Muscle strength and tone normal. SPINE: No scoliosis or deformity SKIN: No rashes CENTRAL NERVOUS SYSTEM: Alert and oriented -3. No focal deficits, tone is normal in all 4 extremities. PSYCHIATRIC: Alert and oriented -3. Appropriate affect. Intact judgment and insight. Results - Laboratory Findings CBC and BMP: 06/19/18 19:17 06/19/18 19:17 ABG ABG pH 7.39 (7.35-7.45) 06/20/18 02:11 ABG pCO2 42 mmHg (35-45) 06/20/18 02:11 ABG pO2 82 mmHg (83-108) L 06/20/18 02:11 ABG O2 Saturation 97.1 % (94-97) H 06/20/18 02:11 PT/INR, D-dimer PT 9.7 sec (9.0-12.0) 06/19/18 19:17 INR 0.9 (<1.2) 06/19/18 19:17 Abnormal lab findings: Abnormal Labs 06/19/18 06/19/18 06/19/18 19:17 19:17 19:26 RBC 4.01 L Hgb 11.5 L Hct 34.4 L RDW 16.0 H Neutrophils # 8.1 H Lymphocytes # 0.6 L ABG pO2 ABG HCO3 ABG Total CO2 ABG O2 Saturation BUN 30 H Creatinine 1.27 H Glucose 101 H POC Glucose (mg/dL) 124 H ALT 18 L Alkaline Phosphatase 130 H Urine Protein Urine Opiates Screen 06/19/18 06/20/18 20:45 02:11 RBC Hgb Hct RDW Neutrophils # Lymphocytes # ABG pO2 82 L ABG HCO3 26 H ABG Total CO2 27 H ABG O2 Saturation 97.1 H BUN Creatinine Glucose POC Glucose (mg/dL) ALT Alkaline Phosphatase Urine Protein Trace H Urine Opiates Screen Detected H - Diagnostic Findings Chest x-ray: report reviewed, image reviewed CT scan - chest: report reviewed, image reviewed Additional studies: Brain CT, x-ray of the hip and pelvis, an x-ray of the right shoulder as well as EKG were reviewed Assessment and Plan Plan: Assessment #1. Acute multifocal bronchopneumonia, likely community acquired #2. Lethargy, altered mental status, weakness, likely related to sepsis related to the above #3. 5 cm right lower lobe subpleural soft tissue mass, likely related to atelectasis/pneumonic consolidation, neoplasm is less likely based on the characteristics but could not be completely ruled out, so will be followed #4. Chronic and ongoing nicotine dependence, a pack to 1 pack a day for last 20 years #5. COPD #6. Osteoarthritis #7. Chronic back pain, patient has a pain stimulator in his back Plan: Continue current antibiotic coverage, nebulized bronchodilators, obtain sputum and blood cultures, Influenza screening has been ordered. Findings of the chest x-ray and CT chest were shared with the patient, more consistent with multifocal bronchopneumonia. The subpleural mass in the right lower lobe is more consistent with consolidation or atelectasis, old and underlying neoplasm could not be entirely ruled out, and will be followed. Patient mentation has improved, no fever or chills, vital signs are stable. Cultures are pending. Continue to follow I performed a history & physical examination of the patient and discussed their management with my nurse practitioner, Gretta Bass. I reviewed the nurse practitioner's note and agree with the documented findings and plan of care. Lung sounds are bibasilar crackles. The findings and the impression was discussed with the patient. I attest to the documentation by the nurse practitioner. Time with Patient: Greater than 30
[2018-06-20] MEDS: IPRATROPIUM-ALBUTEROL 3 ML NEB INHALATION SCH ×2 (14:59→19:47)
[2018-06-20 17:17] LABS: Glucose,Whole Blood 313 mg/dL (75-99)
[2018-06-20] MEDS: INSULIN ASPART 100 UNIT/ML 1 ML 10 ML VIAL SQ SCH ×2 (17:35→22:17)
[2018-06-20] MEDS: NICOTINE 21MG/24HR PATCH TRANSDERM SCH (19:02)
[2018-06-20] MEDS: FORMOTEROL FUMARATE 20 MCG/2 ML NEBU INHALATION SCH (19:47)
[2018-06-20] MEDS: guaiFENesin 600 MG TABLET.ER PO SCH (20:23)
[2018-06-20] MEDS: DOXAZOSIN 4 MG TAB PO SCH (20:23)
[2018-06-20] MEDS: PREGABALIN 75 MG CAP PO SCH (20:25)
[2018-06-20 21:56] LABS: Glucose,Whole Blood 233 mg/dL (75-99)
[2018-06-20] MEDS ORDERED: LEVOFLOXACIN 750MG-D5W PMX 750 MG in DEXTROSE/WATER 1 150ML.BAG IVPB SCH (23:00)
[2018-06-21] MEDS: methylPREDNISolone SOD SUCCI 125 MG/2 ML VIAL IV SCH ×4 (01:34→17:25)
[2018-06-21] MEDS: HEPARIN SODIUM,PORCINE 5,000 UNIT/ML 1 ML VIAL SQ SCH ×3 (01:34→17:25)
[2018-06-21] MEDS: PIPERACILLIN-TAZOBACTAM 3.375 GM in SODIUM CHLORIDE 0.9% 100 ML IVPB SCH ×3 (03:55→18:26)
[2018-06-21] MEDS: SODIUM CHLORIDE 0.9% 1,000 ML IV SCH ×2 (05:30→17:26)
[2018-06-21 07:10] LABS: Glucose,Whole Blood 158 mg/dL (75-99)
[2018-06-21 07:28] LABS: ALT <6 U/L (21-72); AST 17 U/L (17-59); Albumin 3.1 g/dL (3.5-5.0); Alkaline Phosphatase 87 U/L (38-126); Anion Gap 5 mmol/L; Blood Urea Nitrogen 32 mg/dL (9-20); Calcium 8.9 mg/dL (8.4-10.2); Carbon Dioxide 24 mmol/L (22-30); Chloride 112 mmol/L (98-107); Glucose 141 mg/dL (74-99); LDH 309 U/L (313-618); Potassium 4.2 mmol/L (3.5-5.1); Sodium 141 mmol/L (137-145); Total Bilirubin 0.4 mg/dL (0.2-1.3); Total Protein 6.2 g/dL (6.3-8.2)
[2018-06-21 07:29] LABS: Anisocytosis Slight; Basophils % (A) 0 %; Eosinophils % (A) 0 %; HCT 29.3 % (39.0-53.0); Lymphocytes # (A) 0.6 k/uL (1.0-4.8); Lymphocytes % (A) 6 %; MCH 28.1 pg (25.0-35.0); MCHC 32.2 g/dL (31.0-37.0); MCV 87.2 fL (80.0-100.0); Mean Platelet Volume 6.8; Monocytes # (A) 0.3 k/uL (0-1.0); Monocytes % (A) 3 %; Neutrophils # (A) 9.8 k/uL (1.3-7.7); Neutrophils % (A) 91 %; Platelet Count 266 k/uL (150-450); RBC 3.36 m/uL (4.30-5.90); RDW 16.3 % (11.5-15.5); WBC 10.8 k/uL (3.8-10.6)
[2018-06-21 07:31] LABS: HGB 9.5 gm/dL (13.0-17.5)
[2018-06-21] MEDS: PREGABALIN 75 MG CAP PO SCH ×2 (07:55→22:36)
[2018-06-21] MEDS: guaiFENesin 600 MG TABLET.ER PO SCH ×2 (07:55→22:37)
[2018-06-21] MEDS: DOXAZOSIN 4 MG TAB PO SCH ×2 (07:55→22:36)
[2018-06-21] MEDS: INSULIN ASPART 100 UNIT/ML 1 ML 10 ML VIAL SQ SCH ×4 (07:56→22:38)
[2018-06-21] MEDS: NICOTINE 21MG/24HR PATCH TRANSDERM SCH (07:57)
[2018-06-21] MEDS: FORMOTEROL FUMARATE 20 MCG/2 ML NEBU INHALATION SCH ×2 (07:58→19:42)
[2018-06-21] MEDS: IPRATROPIUM-ALBUTEROL 3 ML NEB INHALATION SCH ×4 (07:58→19:42)
--- NOTE | 2018-06-21 11:04 | P.PN ---
Subjective Progress Note Date: 06/21/18 Principal diagnosis: 67-year-old male very poor historian admitted as an inpatient with anticipated length of stay more than 48 hours due to sepsis secondary to pneumonia and acute metabolic encephalopathy with confusion and falling. Patient initially was unable to provide any meaningful history. CT of the head was negative for any acute process. CT of the chest showed suggestion of pneumonia and 5 cm lung mass Patient seen and examined at bedside, reports to feeling a little bit better. Has not been very ambulatory , complaining of chronic shoulder and lower back pain currently on fentanyl patch. Patient denies any chest pain subjective fevers chills or night sweats. No acute events overnight. Patient does not wear oxygen at baseline Objective - Vital Signs Vital signs: Vital Signs Temp 97.5 F L 06/21/18 07:00 Pulse 90 06/21/18 08:26 Resp 16 06/21/18 07:50 BP 109/62 06/21/18 07:00 Pulse Ox 96 06/21/18 07:00 Intake & Output 06/20/18 06/21/18 06/21/18 18:59 06:59 18:59 Intake Total 100 2570 Output Total 1150 Balance 100 1420 Weight 74 kg Intake: Intake, IV Titration 100 1850 Amount Levofloxacin 750Mg-D5w 150 Pmx 750 mg In Dextrose/ Water 1 150ml.bag @ 100 mls/hr IVPB Q24H [facility] Rx#: [id number] Piperacillin-Tazobactam 3 100 100 .375 gm In Sodium Chloride 0.9% 100 ml @ 25 mls/hr IVPB Q8H [facility] Rx#: [id number] Sodium Chloride 0.9% 1, 1600 000 ml @ 100 mls/hr IV . Q10H [facility] Rx#:[id number] Oral 720 Output: Urine 1150 Other: Voiding Method Urinal Urinal # Voids 2 - Exam Constitutional: No acute distress, conversant, pleasant Eyes: Anicteric sclerae, moist conjunctiva, no lid-lag, PERRLA ENMT: NC/AT,Oropharynx clear, no erythema, exudates Neck:Supple, FROM, no masses, or JVD, No carotid bruits; No thyromegaly Lungs: Diminished in the bases with R lower rhonchi Normal respiratory effort , no accessory muscle use on 2 L nasal cannula Cardiovascular: Heart regular in rate and rhythm, No murmurs, gallops, or rubs no peripheral edema Abdominal: Soft Nontender, nom distended, no guarding, no rebound or rigidity, Normoactive bowel sounds No hepatomegaly, No splenomegaly, No palpable mass No abdominal wall hernia noted Skin: Normal temperature, tone, texture, turgor, No induration No subcutaneous nodules, No rash, lesions, No ulcers Extremities:No digital cyanosis No clubbing, Pedal pulses intact and symmetrical Radial pulses intact and symmetrical Normal gait and station, No calf tenderness Psychiatric: Alert and oriented to person, place and time, Appropriate affect Intact judgement Neuro: Muscles Strength 5/5 in all 4 extremities, Sensation to light touch grossly present throughout, Cranial nerves II-XII grossly intact. No focal sensory deficits - Labs CBC & Chem 7: 06/21/18 06:46 06/21/18 06:46 Labs: Abnormal Lab Results - Last 24 Hours (Table) 06/20/18 06/20/18 06/21/18 Range/Units 17:13 21:44 06:46 WBC 10.8 H (3.8-10.6) k/uL RBC 3.36 L (4.30-5.90) m/uL Hgb 9.5 L D (13.0-17.5) gm/dL Hct 29.3 L (39.0-53.0) % RDW 16.3 H (11.5-15.5) % Neutrophils # 9.8 H (1.3-7.7) k/uL Lymphocytes # 0.6 L (1.0-4.8) k/uL Chloride (98-107) mmol/L BUN (9-20) mg/dL Glucose (74-99) mg/dL POC Glucose (mg/dL) 313 H 233 H (75-99) mg/dL ALT (21-72) U/L Lactate Dehydrogenase (313-618) U/L Total Protein (6.3-8.2) g/dL Albumin (3.5-5.0) g/dL 06/21/18 06/21/18 Range/Units 06:46 07:08 WBC (3.8-10.6) k/uL RBC (4.30-5.90) m/uL Hgb (13.0-17.5) gm/dL Hct (39.0-53.0) % RDW (11.5-15.5) % Neutrophils # (1.3-7.7) k/uL Lymphocytes # (1.0-4.8) k/uL Chloride 112 H (98-107) mmol/L BUN 32 H (9-20) mg/dL Glucose 141 H (74-99) mg/dL POC Glucose (mg/dL) 158 H (75-99) mg/dL ALT <6 L (21-72) U/L Lactate Dehydrogenase 309 L (313-618) U/L Total Protein 6.2 L (6.3-8.2) g/dL Albumin 3.1 L (3.5-5.0) g/dL Microbiology - Last 24 Hours (Table) 06/20/18 20:00 Gram Stain - Preliminary Sputum Sputum Culture - Preliminary 06/19/18 19:17 Blood Culture - Preliminary Blood No Growth after 24 hours Assessment and Plan (1) Sepsis Narrative/Plan: * Secondary to community acquired pneumonia * Patient afebrile, without leukocytosis * Continue empiric IV antibiotics with Levaquin and Zosyn Current Visit: Yes Status: Acute Code(s): A41.9 - SEPSIS, UNSPECIFIED ORGANISM SNOMED Code(s): 07551911 (2) Bronchopneumonia Narrative/Plan: * Continue with treatment regimen as above Current Visit: Yes Status: Acute Code(s): J18.0 - BRONCHOPNEUMONIA, UNSPECIFIED ORGANISM SNOMED Code(s): 594787484 (3) Metabolic encephalopathy Narrative/Plan: * CT of the head negative for any acute intracranial pathology * Likely secondary to underlying sepsis and pneumonia Current Visit: Yes Status: Resolved Code(s): G93.41 - METABOLIC ENCEPHALOPATHY SNOMED Code(s): 08398440 (4) Right lower lobe lung mass Narrative/Plan: * Pulmonary is been consulted for further recommendations Current Visit: Yes Status: Acute Code(s): R91.8 - OTHER NONSPECIFIC ABNORMAL FINDING OF LUNG FIELD SNOMED Code(s): 715090388 (5) Acute exacerbation of COPD with asthma Narrative/Plan: * Continue systemic steroids Solu-Medrol 60 mg IV 4 times a day, with scheduled and when necessary bronchodilator DuoNeb breathing treatments * We'll plan to add Perforomist and Mucinex a current regimen * Appreciate pulmonary recommendations Current Visit: Yes Status: Acute Code(s): J44.1 - CHRONIC OBSTRUCTIVE PULMONARY DISEASE W (ACUTE) EXACERBATION; J45.901 - UNSPECIFIED ASTHMA WITH ( ACUTE) EXACERBATION SNOMED Code(s): 6745331452312 Plan: Anticipated discharge * 1To 2 days
[2018-06-21 11:30] LABS: Glucose,Whole Blood 200 mg/dL (75-99)
--- NOTE | 2018-06-21 11:50 | P.PN ---
Subjective Progress Note Date: 06/21/18 Principal diagnosis: Multifocal pneumonia, community acquired This 67-year-old white male patient with no significant medical history other than COPD, osteoarthritis, who was brought to the emergency department by his family for evaluation weakness, a fall, confusion, lethargy, cough, with phlegm production, chills. Patient states his been coughing for last 2 or 3 weeks, he was out shopping yesterday on 06/19/2018 with his daughter, and suddenly he stumbled and fell into things. Patient reported right shoulder and right hip pain. He has had some chills, denied any chest pain, he is producing yellow sputum. No hemoptysis. Patient is a current smoker, currently smoking half a pack to 1 pack a day over 20 years. No nausea, no vomiting, no diarrhea, no abdominal pain. In the emergency department chest x-ray showed right infrahilar consolidation and bilateral scattered pulmonary opacities. CT chest was completed and showed multifocal opacities consistent iwth multifocal bronchopneumonia, 5 cm ill-defined mass associated with focal pleural thickening , having the appearance of rounded atelectasis, although neoplasm could not be radiographically excluded. EEG showed sinus tach at acute ischemic changes. WBC was 9.3, hemoglobin is 11.5, lites were within normal limits, B1 is 30 and creatinine is 1.27. Troponin was negative 1, urinalysis was negative, urine drug screen detected opiates, the patient is on [place] and fentanyl patch for his chronic pain related to osteoarthritis. Never seen a economic development specialist in the past, he is not on any oxygen or inhalers at home. Did have a low-grade fever and presentation with a temp of 100.4F, has been afebrile since. He is covered with a combination of Levaquin and Zosyn, IV steroids, and nebulized bronchodilators. On 06/21/2018 patient seen in follow-up on medical surgical floor, he is awake and alert, in no acute distress, tolerating ambulation, no fever or chills, vital signs are stable. But culture showed no growth, sputum culture Gram stain showed few yeast, epithelial cells, final culture is in progress. His labs have been reviewed, today's WBC is 10.8, hemoglobin is 9.5, sodium is 141, potassium is 4.2, chloride is 112, BUN is 32 and creatinine is 1.20. Remains on empiric antibiotics, combination of Levaquin and Zosyn, is on IV steroids, and nebulized bronchodilators, easier, lung sounds are positive for some scattered crackles, no significant wheezing Objective - Vital Signs Vital signs: Vital Signs Temp 97.5 F L 06/21/18 07:00 Pulse 90 06/21/18 08:26 Resp 16 06/21/18 07:50 BP 109/62 06/21/18 07:00 Pulse Ox 96 06/21/18 07:00 Intake & Output 06/20/18 06/21/18 06/21/18 18:59 06:59 18:59 Intake Total 100 2570 Output Total 1150 Balance 100 1420 Weight 74 kg Intake: Intake, IV Titration 100 1850 Amount Levofloxacin 750Mg-D5w 150 Pmx 750 mg In Dextrose/ Water 1 150ml.bag @ 100 mls/hr IVPB Q24H [facility] Rx#: [id number] Piperacillin-Tazobactam 3 100 100 .375 gm In Sodium Chloride 0.9% 100 ml @ 25 mls/hr IVPB Q8H [facility] Rx#: [id number] Sodium Chloride 0.9% 1, 1600 000 ml @ 100 mls/hr IV . Q10H [facility] Rx#:[id number] Oral 720 Output: Urine 1150 Other: Voiding Method Urinal Urinal # Voids 2 - Exam GENERAL EXAM: Alert, pleasant 67-year-old white male, comfortable in no apparent distress. HEAD: Normocephalic/atraumatic. EYES: Normal reaction of pupils, equal size. Conjunctiva pink, sclera white. NOSE: Clear with pink turbinates. THROAT: No erythema or exudates. NECK: No masses, no JVD, no thyroid enlargement, no adenopathy. CHEST: No chest wall deformity. Symmetrical expansion. LUNGS: Equal air entry with coarse basilar crackles CVS: Regular rate and rhythm, normal S1 and S2, no gallops, no murmurs, no rubs ABDOMEN: Soft, nontender. No hepatosplenomegaly, normal bowel sounds, no guarding or rigidity. EXTREMITIES: No clubbing, no edema, no cyanosis, 2+ pulses and upper and lower extremities. MUSCULOSKELETAL: Muscle strength and tone normal. SPINE: No scoliosis or deformity SKIN: No rashes CENTRAL NERVOUS SYSTEM: Alert and oriented -3. No focal deficits, tone is normal in all 4 extremities. PSYCHIATRIC: Alert and oriented -3. Appropriate affect. Intact judgment and insight. - Labs CBC & Chem 7: 06/21/18 06:46 06/21/18 06:46 Labs: Abnormal Lab Results - Last 24 Hours (Table) 06/20/18 06/20/18 06/21/18 Range/Units 17:13 21:44 06:46 WBC 10.8 H (3.8-10.6) k/uL RBC 3.36 L (4.30-5.90) m/uL Hgb 9.5 L D (13.0-17.5) gm/dL Hct 29.3 L (39.0-53.0) % RDW 16.3 H (11.5-15.5) % Neutrophils # 9.8 H (1.3-7.7) k/uL Lymphocytes # 0.6 L (1.0-4.8) k/uL Chloride (98-107) mmol/L BUN (9-20) mg/dL Glucose (74-99) mg/dL POC Glucose (mg/dL) 313 H 233 H (75-99) mg/dL ALT (21-72) U/L Lactate Dehydrogenase (313-618) U/L Total Protein (6.3-8.2) g/dL Albumin (3.5-5.0) g/dL 06/21/18 06/21/18 06/21/18 Range/Units 06:46 07:08 11:19 WBC (3.8-10.6) k/uL RBC (4.30-5.90) m/uL Hgb (13.0-17.5) gm/dL Hct (39.0-53.0) % RDW (11.5-15.5) % Neutrophils # (1.3-7.7) k/uL Lymphocytes # (1.0-4.8) k/uL Chloride 112 H (98-107) mmol/L BUN 32 H (9-20) mg/dL Glucose 141 H (74-99) mg/dL POC Glucose (mg/dL) 158 H 200 H (75-99) mg/dL ALT <6 L (21-72) U/L Lactate Dehydrogenase 309 L (313-618) U/L Total Protein 6.2 L (6.3-8.2) g/dL Albumin 3.1 L (3.5-5.0) g/dL Microbiology - Last 24 Hours (Table) 06/20/18 20:00 Gram Stain - Preliminary Sputum Sputum Culture - Preliminary 06/19/18 19:17 Blood Culture - Preliminary Blood No Growth after 24 hours Assessment and Plan Plan: Assessment #1. Acute multifocal bronchopneumonia, likely community acquired #2. Lethargy, altered mental status, weakness, likely related to sepsis related to the above #3. 5 cm right lower lobe subpleural soft tissue mass, likely related to atelectasis/pneumonic consolidation, neoplasm is less likely based on the characteristics but could not be completely ruled out, so will be followed #4. Chronic and ongoing nicotine dependence, a pack to 1 pack a day for last 20 years #5. COPD #6. Osteoarthritis #7. Chronic back pain, patient has a pain stimulator in his back Plan: Continue with current medical treatment, patient reports no difficulty breathing , vital signs are stable, no fever or chills, no altered mentation. Increase activity, wean FiO2. Clinically patient is stable, may be considered for discharge in the next 24 hours, I performed a history & physical examination of the patient and discussed their management with my nurse practitioner, Gretta Bass. I reviewed the nurse practitioner's note and agree with the documented findings and plan of care. Lung sounds are bibasilar crackles. The findings and the impression was discussed with the patient. I attest to the documentation by the nurse practitioner. Time with Patient: Less than 30
[2018-06-21] MEDS: BENZOCAINE/MENTHOL LOZENG 1 EACH LOZENGE MUCOUS MEM PRN (12:54)
--- NOTE | 2018-06-21 13:51 | XR ---
EXAMINATION TYPE: XR chest 1V portable DATE OF EXAM: 06/21/2018 CLINICAL HISTORY: Difficulty breathing progress study. TECHNIQUE: Single AP portable upright view of the chest is obtained. COMPARISON: Chest x-ray from one day earlier. CT chest from 2 days earlier. FINDINGS: Metallic hardware from left shoulder surgery is partially imaged. There is stimulator sindhu ce in the mid to lower thoracic spinal canal redemonstrated. There is chronic parenchymal change with patchy bibasilar atelectasis and/or infiltrate and suspected tiny right pleural effusion all redemon strated. Upper lungs are clear without pneumothorax. Cardiac silhouette size is stable and within nor mal limits. IMPRESSION: Overall stable findings, chronic parenchymal change with tiny right pleural effusion an d right greater than left bibasilar atelectasis and/or infiltrate all redemonstrated near at
[2018-06-21 17:20] LABS: Glucose,Whole Blood 229 mg/dL (75-99)
[2018-06-21 20:01] LABS: Glucose,Whole Blood 231 mg/dL (75-99)
[2018-06-21] MEDS: MELATONIN 3 MG TABLET PO SCH (22:36)
[2018-06-21] MEDS: LEVOFLOXACIN 750 MG TAB PO SCH (22:37)
[2018-06-22] MEDS: methylPREDNISolone SOD SUCCI 125 MG/2 ML VIAL IV SCH ×2 (01:01→05:55)
[2018-06-22] MEDS: HEPARIN SODIUM,PORCINE 5,000 UNIT/ML 1 ML VIAL SQ SCH ×4 (01:01→23:37)
[2018-06-22] MEDS: SODIUM CHLORIDE 0.9% 1,000 ML IV SCH ×3 (02:26→23:37)
[2018-06-22] MEDS: PIPERACILLIN-TAZOBACTAM 3.375 GM in SODIUM CHLORIDE 0.9% 100 ML IVPB SCH ×3 (05:02→21:39)
[2018-06-22 07:24] LABS: Glucose,Whole Blood 135 mg/dL (75-99)
[2018-06-22] MEDS: INSULIN ASPART 100 UNIT/ML 1 ML 10 ML VIAL SQ SCH ×4 (07:51→21:40)
[2018-06-22] MEDS: DOXAZOSIN 4 MG TAB PO SCH ×2 (07:55→21:49)
[2018-06-22] MEDS: guaiFENesin 600 MG TABLET.ER PO SCH ×2 (07:55→21:39)
[2018-06-22] MEDS: NICOTINE 21MG/24HR PATCH TRANSDERM SCH (07:56)
[2018-06-22] MEDS: PREGABALIN 75 MG CAP PO SCH ×2 (07:56→21:39)
[2018-06-22] MEDS: FORMOTEROL FUMARATE 20 MCG/2 ML NEBU INHALATION SCH ×2 (10:02→21:19)
[2018-06-22] MEDS: IPRATROPIUM-ALBUTEROL 3 ML NEB INHALATION SCH ×4 (10:02→21:19)
--- NOTE | 2018-06-22 10:17 | P.DS ---
Providers Date of admission: 06/19/18 23:25 Expected date of discharge: 06/22/18 Attending physician: Vick Benson MD Consults: 06/19/18 23:11 Consult Physician Routine Consulting Provider: Jerardo Sauer Consult Reason/Comments: Hypoxia; Pneumonia; Right lung mass Do you want consulting provider notified?: Yes Primary care physician: Stated None Hospital Course: This is a 67-year-old male with past medical history noted below who presented to the hospital with worsening confusion and cough. Patient was evaluated and was found to have multifocal pneumonia on computed tomography scan of the chest. Also noted a 5 cm ill-defined mass. Patient was admitted to the hospital and was seen and evaluated by pulmonology. Below is a list of medical problems addressed during this hospitalization. 1. Community-acquired pneumonia, started on broad-spectrum antibiotic with Levaquin and Zosyn. Blood cultures negative to date. Patient will finish antibiotic course with Levaquin for 5 days 2. Acute hypoxic respiratory failure on presentation, now resolved. O2 sats greater than 90% on room air 3. COPD exacerbation, treated with bronchodilators and steroids. Will finish 5 days course of prednisone. Albuterol inhaler provided. Follow-up with pulmonology in the office in one week. 4. 5 cm ill-defined mass noted on computed tomography scan of the chest, most likely secondary to underlying pneumonia and atelectasis. Plan for repeat imaging in the next 4-6 weeks. 5. Tobacco abuse, counseled extensively to quit. Nicotine patch prescribed. Patient will be discharged home in a stable condition. Follow-up with pulmonology in one week. Please refer to the electronic chart for further details about this hospitalization. Patient Condition at Discharge: Fair Plan - Discharge Summary Discharge Rx Participant: Yes New Discharge Prescriptions: New Albuterol Inhaler [Ventolin Hfa Inhaler] 1 - 2 puff INHALATION RT-Q6H PRN #1 inhaler PRN Reason: Wheezing guaiFENesin [Mucinex] 1,200 mg PO Q12HR #10 tablet.er Levofloxacin [Levaquin] 500 mg PO DAILY #5 tab Nicotine 14Mg/24Hr Patch [Habitrol] 1 patch TRANSDERM DAILY #30 patch predniSONE 40 mg PO DAILY #10 tab Continue Doxazosin Mesylate 8 mg PO BID HYDROcodone/APAP 10-325MG [[place] 10-325] 1 tab PO BID PRN PRN Reason: Pain Celecoxib [CeleBREX] 200 mg PO DAILY fentaNYL [Duragesic 75MCG/HR] 1 patch TRANSDERM Q72H Pregabalin [Lyrica] 150 mg PO BID Discharge Medication List Doxazosin Mesylate 8 mg PO BID 04/16/15 [History] Celecoxib [CeleBREX] 200 mg PO DAILY 06/20/18 [History] HYDROcodone/APAP 10-325MG [[place] 10-325] 1 tab PO BID PRN 06/20/18 [History] Pregabalin [Lyrica] 150 mg PO BID 06/20/18 [History] fentaNYL [Duragesic 75MCG/HR] 1 patch TRANSDERM Q72H 06/20/18 [History] Albuterol Inhaler [Ventolin Hfa Inhaler] 1 - 2 puff INHALATION RT-Q6H PRN #1 inhaler 06/22/18 [Rx] Levofloxacin [Levaquin] 500 mg PO DAILY #5 tab 06/22/18 [Rx] Nicotine 14Mg/24Hr Patch [Habitrol] 1 patch TRANSDERM DAILY #30 patch 06/22/18 [ Rx] guaiFENesin [Mucinex] 1,200 mg PO Q12HR #10 tablet.er 06/22/18 [Rx] predniSONE 40 mg PO DAILY #10 tab 06/22/18 [Rx] Follow up Appointment(s)/Referral(s): None,Stated [Primary Care Provider] - 1-2 days Jerardo Sauer MD [STAFF PHYSICIAN] - 1 Week Discharge Disposition: HOME SELF-CARE
[2018-06-22] MEDS ORDERED: MORPHINE SULFATE 2 MG/ML SYRINGE IVP STA (11:45)
[2018-06-22] MEDS ORDERED: ASPIRIN 325 MG TAB PO STA (11:46)
[2018-06-22 11:57] LABS: Glucose,Whole Blood 114 mg/dL (75-99)
[2018-06-22 12:11] LABS: Anisocytosis Slight; HCT 29.5 % (39.0-53.0); HGB 9.6 gm/dL (13.0-17.5); MCH 28.2 pg (25.0-35.0); MCHC 32.4 g/dL (31.0-37.0); MCV 87.1 fL (80.0-100.0); Mean Platelet Volume 8.2; Platelet Count 228 k/uL (150-450); RBC 3.39 m/uL (4.30-5.90); RDW 16.4 % (11.5-15.5); WBC 10.2 k/uL (3.8-10.6)
[2018-06-22] MEDS: MORPHINE SULFATE 4 MG/ML SYRINGE IVP PRN ×2 (12:13→19:45)
[2018-06-22] MEDS ORDERED: NITROGLYCERIN OINT 1 INCH/GM PACKET TOPICAL SCH (12:15)
[2018-06-22] MEDS ORDERED: HEPARIN SODIUM,PORCINE 5,000 UNIT/ML 1 ML VIAL IV STA (12:20)
[2018-06-22] MEDS ORDERED: SODIUM CHLORIDE 0.9% 1,000 ML in EMPTY BAG 1 BAG IV ONE (12:20)
[2018-06-22] MEDS ORDERED: ALPRAZolam 0.25 MG TAB PO PRN (12:20)
[2018-06-22] MEDS ORDERED: ATORVASTATIN 80 MG TAB PO STA (12:20)
[2018-06-22 12:23] LABS: Albumin 3.3 g/dL (3.5-5.0); Calcium 9.2 mg/dL (8.4-10.2); Potassium 3.9 mmol/L (3.5-5.1); Total Bilirubin 0.4 mg/dL (0.2-1.3); Total Protein 6.5 g/dL (6.3-8.2)
--- NOTE | 2018-06-22 12:36 | P.PN ---
Progress Note - Text Patient was getting ready to be discharged. After he was taken off of the monitor and after he took his shower he started having chest pain that he described as severe and dull mostly in the middle of his chest. Pain was 10 out of 10 in severity. This was associated with shortness of breath but no dizziness or lightheadedness. A stat 12-lead ECG showed evidence of ST segment depression in the inferior and lateral leads. Stat troponin was ordered and pending. Patient was given a full dose aspirin, IV morphine 2 mg, and Lipitor. He was seen and evaluated by cardiology. Plan is to take him for a left heart cath for further evaluation. His discharge will be canceled and patient will stay in the hospital for further evaluation. General: The patient is awake and alert, in no distress Eye: there is normal conjunctiva bilaterally. Cardiovascular: Normal S1-S2, no S3-S4, no murmurs. Respiratory: Lungs clear to auscultation bilaterally Gastrointestinal: Abdomen is soft, nontender Musculoskeletal: There is no pedal edema. Neurological:. Speech is normal. Skin: Skin is warm and dry Please refer to the discharge summary dated today for the rest of his medical problems.
[2018-06-22] MEDS ORDERED: IV FLUID CONTINUATION 1,000 ML IV ONE (12:45)
[2018-06-22] MEDS ORDERED: fentaNYL (PF) 50 MCG/ML 2 ML AMP IV ONE (13:00)
[2018-06-22] MEDS ORDERED: LIDOCAINE 1% INJ 10MG/ML (20 ML MDV) SQ ONE ×2 (13:04→13:05)
[2018-06-22] MEDS ORDERED: VERAPAMIL SYRINGE (5 MG/10 ML) INTRAARTER ONE (13:06)
--- NOTE | 2018-06-22 13:13 | P.PN ---
Subjective Progress Note Date: 06/22/18 Principal diagnosis: Multifocal pneumonia, community acquired This 67-year-old white male patient with no significant medical history other than COPD, osteoarthritis, who was brought to the emergency department by his family for evaluation weakness, a fall, confusion, lethargy, cough, with phlegm production, chills. Patient states his been coughing for last 2 or 3 weeks, he was out shopping yesterday on 06/19/2018 with his daughter, and suddenly he stumbled and fell into things. Patient reported right shoulder and right hip pain. He has had some chills, denied any chest pain, he is producing yellow sputum. No hemoptysis. Patient is a current smoker, currently smoking half a pack to 1 pack a day over 20 years. No nausea, no vomiting, no diarrhea, no abdominal pain. In the emergency department chest x-ray showed right infrahilar consolidation and bilateral scattered pulmonary opacities. CT chest was completed and showed multifocal opacities consistent iwth multifocal bronchopneumonia, 5 cm ill-defined mass associated with focal pleural thickening , having the appearance of rounded atelectasis, although neoplasm could not be radiographically excluded. EEG showed sinus tach at acute ischemic changes. WBC was 9.3, hemoglobin is 11.5, lites were within normal limits, B1 is 30 and creatinine is 1.27. Troponin was negative 1, urinalysis was negative, urine drug screen detected opiates, the patient is on [place] and fentanyl patch for his chronic pain related to osteoarthritis. Never seen a interior specialist in the past, he is not on any oxygen or inhalers at home. Did have a low-grade fever and presentation with a temp of 100.4F, has been afebrile since. He is covered with a combination of Levaquin and Zosyn, IV steroids, and nebulized bronchodilators. On 06/21/2018 patient seen in follow-up on medical surgical floor, he is awake and alert, in no acute distress, tolerating ambulation, no fever or chills, vital signs are stable. But culture showed no growth, sputum culture Gram stain showed few yeast, epithelial cells, final culture is in progress. His labs have been reviewed, today's WBC is 10.8, hemoglobin is 9.5, sodium is 141, potassium is 4.2, chloride is 112, BUN is 32 and creatinine is 1.20. Remains on empiric antibiotics, combination of Levaquin and Zosyn, is on IV steroids, and nebulized bronchodilators, easier, lung sounds are positive for some scattered crackles, no significant wheezing On 06/22/2018 patient seen in follow-up on medical surgical floor. Recent had an episode of acute 10 out of 10 chest pain, that was accompanied by difficulty breathing, stat EKG was obtained which suggested the ischemic changes, ST segment depression in the inferior and lateral leads. His pain was unrelieved by aspirin, sublingual nitroglycerin, he was seen and evaluated by cardiology, and urgent heart catheterization was recommended. Currently patient is being taken [place] [facility]. Patient has been afebrile, vital signs have been stable. His labs have been reviewed, troponins have been ordered and pending at this time Objective - Vital Signs Vital signs: Vital Signs Temp 97.5 F L 06/22/18 07:15 Pulse 79 06/22/18 12:09 Resp 22 06/22/18 11:55 BP 121/64 06/22/18 12:09 Pulse Ox 98 06/22/18 12:09 Intake & Output 06/21/18 06/22/18 06/22/18 18:59 06:59 18:59 Intake Total 2079 Balance 2079 Weight 74 kg Intake: Intake, IV Titration 1600 Amount Sodium Chloride 0.9% 1, 1600 000 ml @ 100 mls/hr IV . Q10H [facility] Rx#:[id number] Oral 480 Other: Voiding Method Urinal Urinal Urinal # Voids 3 - Exam GENERAL EXAM: Alert, pleasant 67-year-old white male, comfortable in no apparent distress. HEAD: Normocephalic/atraumatic. EYES: Normal reaction of pupils, equal size. Conjunctiva pink, sclera white. NOSE: Clear with pink turbinates. THROAT: No erythema or exudates. NECK: No masses, no JVD, no thyroid enlargement, no adenopathy. CHEST: No chest wall deformity. Symmetrical expansion. LUNGS: Equal air entry with coarse basilar crackles CVS: Regular rate and rhythm, normal S1 and S2, no gallops, no murmurs, no rubs ABDOMEN: Soft, nontender. No hepatosplenomegaly, normal bowel sounds, no guarding or rigidity. EXTREMITIES: No clubbing, no edema, no cyanosis, 2+ pulses and upper and lower extremities. MUSCULOSKELETAL: Muscle strength and tone normal. SPINE: No scoliosis or deformity SKIN: No rashes CENTRAL NERVOUS SYSTEM: Alert and oriented -3. No focal deficits, tone is normal in all 4 extremities. PSYCHIATRIC: Alert and oriented -3. Appropriate affect. Intact judgment and insight. - Labs CBC & Chem 7: 06/22/18 12:02 06/22/18 12:02 Labs: Abnormal Lab Results - Last 24 Hours (Table) 06/21/18 06/21/18 06/22/18 Range/Units 17:18 19:56 07:13 RBC (4.30-5.90) m/uL Hgb (13.0-17.5) gm/dL Hct (39.0-53.0) % RDW (11.5-15.5) % Chloride (98-107) mmol/L Carbon Dioxide (22-30) mmol/L BUN (9-20) mg/dL Glucose (74-99) mg/dL POC Glucose (mg/dL) 229 H 231 H 135 H (75-99) mg/dL Albumin (3.5-5.0) g/dL 06/22/18 06/22/18 06/22/18 Range/Units 11:55 12:02 12:02 RBC 3.39 L (4.30-5.90) m/uL Hgb 9.6 L (13.0-17.5) gm/dL Hct 29.5 L (39.0-53.0) % RDW 16.4 H (11.5-15.5) % Chloride 110 H (98-107) mmol/L Carbon Dioxide 21 L (22-30) mmol/L BUN 38 H (9-20) mg/dL Glucose 104 H (74-99) mg/dL POC Glucose (mg/dL) 114 H (75-99) mg/dL Albumin 3.3 L (3.5-5.0) g/dL Microbiology - Last 24 Hours (Table) 06/19/18 19:17 Blood Culture - Preliminary Blood No Growth after 48 hours 06/20/18 20:00 Gram Stain - Preliminary Sputum Sputum Culture - Preliminary Assessment and Plan Plan: Assessment #1. Angina, ST depression in the inferior and lateral leads, suggesting unstable angina #2. Acute multifocal bronchopneumonia, likely community acquired #3. Lethargy, altered mental status, weakness, likely related to sepsis related to the above #3. 5 cm right lower lobe subpleural soft tissue mass, likely related to atelectasis/pneumonic consolidation, neoplasm is less likely based on the characteristics but could not be completely ruled out, so will be followed #4. Chronic and ongoing nicotine dependence, a pack to 1 pack a day for last 20 years #5. COPD #6. Osteoarthritis #7. Chronic back pain, patient has a pain stimulator in his back Plan: Patient is going to the [facility] urgently, we'll continue to follow, and pulmonary perspective will continue with current antibiotic coverage. We'll follow the patient on selective care unit where he is going after the heart catheterization. I performed a history & physical examination of the patient and discussed their management with my nurse practitioner, Gretta Bass. I reviewed the nurse practitioner's note and agree with the documented findings and plan of care. Lung sounds are bibasilar crackles. The findings and the impression was discussed with the patient. I attest to the documentation by the nurse practitioner. Time with Patient: Less than 30
[2018-06-22] MEDS ORDERED: BIVALIRUDIN BOLUS 250 MG/50 ML IV ONE (13:16)
[2018-06-22] MEDS ORDERED: BIVALIRUDIN 250 MG in SODIUM CHLORIDE 0.9% 50 ML IV ONE (13:17)
[2018-06-22] MEDS ORDERED: TICAGRELOR 90 MG TAB PO ONE (13:18)
[2018-06-22] MEDS ORDERED: IOPAMIDOL-370 125ML BTL INJ ONE (13:21)
--- NOTE | 2018-06-22 13:27 | P.CRDCN ---
History of Present Illness History of present illness: This is a pleasant 67-year-old male past medical history significant for COPD, asthma and chronic nicotine dependence. Denies history of coronary artery disease, hypertension, dyslipidemia and diabetes mellitus. He is chest discomfort with EKG changes. Initial stent to the hospital 4 days ago symptoms of cough, altered mental status and increased weakness. Chest x-ray showed right infrahilar consolidation and bilateral scattered pulmonary opacities CT of the chest revealed multifocal PVCs consistent with multifocal bronchopneumonia as well as an ill-defined mass associated with focal pleural thickening, neoplasm could not be excluded. He has been maintained on IV antibiotics, IV steroids and bronchodilators. He was preparing for discharge this morning when he had an acute onset of crushing midsternal chest pain. He states the pain radiates straight through to his back and is rated as an 8 out of 10. At times he had told the nurse the pain was radiating into his left shoulder. Denies radiation into the arm, neck or jaw. He denies associated shortness of breath, dizziness, palpitations or diaphoresis. He is seen and examined sitting in bed holding his hand over his chest with tears in his eyes. EKG was obtained stat and revealed sinus mechanism with ST depression in the inferior-lateral leads. EKG obtained on admission 4 days ago revealed sinus tachycardia with no ST or T wave abnormalities noted. He was given sublingual nitroglycerin, aspirin and IV morphine with no relief of his chest discomfort. A stat troponin has been ordered. Blood pressure 121/64 heart rate 79 afebrile maintaining oxygen saturation on nasal cannula. Laboratory data reviewed, WBC 10.2, hemoglobin 9.6, platelets 141, sodium 3.9, creatinine 1.22 with a GFR of 61, troponin on admission 4 days ago was negative x1. The patient states he has never had a stress test or an echocardiogram. He denies ever feeling pain like this in his chest before today. Chest xray obtained yesterday reveals tiny right pleural effusion with bibasilar atelectasis redemonstrated. At the time of my exam: CONSTITUTIONAL: Denies fever. Denies chills. EYES: Denies blurred vision. Denies vision changes. Denies eye pain. EARS, NOSE, MOUTH & THROAT: Denies headache. Denies sore throat. Denies ear pain. CARDIOVASCULAR: Complains of crushing chest pain. Denies shortness of breath. Denies orthopnea. Denies PND. Denies palpitations. RESPIRATORY: Denies cough. GASTROINTESTINAL: Denies abdominal pain. Denies diarrhea. Denies constipation. Denies nausea. Denies vomiting. MUSCULOSKELETAL: Denies myalgias. INTEGUMENTARY: Denies pruitis. Denies rash. NEUROLOGIC: Denies numbness. Denies tingling. Denies weakness. PSYCHIATRIC: Denies anxiety. Denies depression. ENDOCRINE: Denies fatigue. Denies weight change. Denies polydipsia. Denies polyurina. GENITOURINARY: Denies burning, hematuria or urgency with micturation. HEMATOLOGIC: Denies history of anemia. Denies bleeding. GENERAL: This is a 67-year-old male in significant distress secondary to crushing chest pain at the time of my examination. HEENT: Head is atraumatic, normocephalic. Pupils are equal, round. Sclerae anicteric. Conjunctivae are clear. Mucous membranes of the mouth are moist. Neck is supple. There is no jugular venous distention. No carotid bruit is heard. LUNGS: Clear to auscultation no wheezes, rales or rhonchi. No chest wall tenderness is noted on palpation or with deep breathing. HEART: Regular rate and rhythm without murmurs, rubs or gallops. S1 and S2 heard. ABDOMEN: Soft, nontender. Bowel sounds are heard. No organomegaly noted. EXTREMITIES: No evidence of peripheral edema and no calf tenderness noted. VASCULAR: Radial and dorsalis pedis pulses palpated, no evidence of clubbing. NEUROLOGIC: Patient is awake, alert and oriented x3. ASSESSMENT Non-ST elevated myocardial infarction, acute. Multifocal pneumonia, was treated with IV antibiotics and was being discharged home today prior to having chest pain COPD Chronic nicotine dependence Right lobe lung mass, neoplasm to be ruled out. PLAN Obtain stat 2-D echocardiogram and Doppler study to assess cardiac structure and function. We recommend proceeding with cardiac catheterization to further assess the coronary arteries. I have discussed the risks, benefits and alternative therapies for the above-mentioned procedure and for both sedation/analgesia as well as necessary blood product administration, if indicated, as they pertain to this patient. The patient has indicated understanding and acceptance of the risks and procedures discussed. Questions have been answered appropriately and he is agreeable to move forward with the above stated procedure. He 30 been given 325 mg of aspirin, we will order 4,000 units of IV heparin STAT. Case has been boarded STAT with the Housing Assistant Property Manager. Further recommendations to follow based on clinical course. Thank you kindly for this consultation. Nurse Practitioner note has been reviewed, I agree with a documented findings and plan of care. Patient was seen and examined. Past Medical History Past Medical History: Asthma, COPD, Osteoarthritis (OA) History of Any Multi-Drug Resistant Organisms: None Reported Past Surgical History: Back Surgery, Orthopedic Surgery Additional Past Surgical History / Comment(s): Rt shoulder and unknown knee. Pain stimulator in back. Past Anesthesia/Blood Transfusion Reactions: No Reported Reaction Smoking Status: Current every day smoker - Past Family History Family Family Medical History: Unable to Obtain Medications and Allergies Home Medications Medication Instructions Recorded Confirmed Type Doxazosin Mesylate 8 mg PO BID 04/16/15 06/20/18 History Celecoxib [CeleBREX] 200 mg PO DAILY 06/20/18 06/20/18 History HYDROcodone/APAP 10-325MG [[place] 1 tab PO BID PRN 06/20/18 06/20/18 History 10-325] Pregabalin [Lyrica] 150 mg PO BID 06/20/18 06/20/18 History fentaNYL [Duragesic 75MCG/HR] 1 patch TRANSDERM Q72H 06/20/18 06/20/18 History Albuterol Inhaler [Ventolin Hfa 1 - 2 puff INHALATION RT-Q6H PRN 06/22/18 Rx Inhaler] #1 inhaler Levofloxacin [Levaquin] 500 mg PO DAILY #5 tab 06/22/18 Rx Nicotine 14Mg/24Hr Patch [Habitrol] 1 patch TRANSDERM DAILY #30 patch 06/22/18 Rx guaiFENesin [Mucinex] 1,200 mg PO Q12HR #10 tablet.er 06/22/18 Rx predniSONE 40 mg PO DAILY #10 tab 06/22/18 Rx Allergies Allergy/AdvReac Type Severity Reaction Status Date / Time No Known Allergies Allergy Verified 06/20/18 08:13 Physical Exam Vitals: Vital Signs Temp Pulse Pulse Resp BP BP Pulse Ox 06/22/18 12:09 79 121/64 98 06/22/18 11:55 87 22 115/63 97 06/22/18 10:23 78 06/22/18 10:16 80 06/22/18 10:15 80 06/22/18 10:02 76 06/22/18 09:33 92 L 06/22/18 07:40 19 06/22/18 07:15 97.5 F L 84 19 119/71 97 06/21/18 23:00 98.2 F 77 16 112/48 94 L 06/21/18 20:00 87 06/21/18 19:51 92 06/21/18 19:43 92 06/21/18 18:49 98.6 F 95 16 114/52 96 06/21/18 15:50 88 06/21/18 15:41 88 06/21/18 14:17 97.4 F L 88 18 110/50 97 Intake and Output 06/21/18 06/22/18 06/22/18 22:59 06:59 14:59 Intake Total 800 1280 Balance 800 1280 Intake: Intake, IV Titration 800 800 Amount Sodium Chloride 0.9% 1, 800 800 000 ml @ 100 mls/hr IV . Q10H [facility] Rx#:[id number] Oral 480 Other: Voiding Method Urinal Urinal # Voids 3 3 Results 06/22/18 12:02 06/22/18 12:02 Cardiac Enzymes 06/22/18 Range/Units 12:02 AST 31 (17-59) U/L CBC 06/22/18 Range/Units 12:02 WBC 10.2 (3.8-10.6) k/uL RBC 3.39 L (4.30-5.90) m/uL Hgb 9.6 L (13.0-17.5) gm/dL Hct 29.5 L (39.0-53.0) % Plt Count 228 (150-450) k/uL Comprehensive Metabolic Panel 06/22/18 Range/Units 12:02 Sodium 141 (137-145) mmol/L Potassium 3.9 (3.5-5.1) mmol/L Chloride 110 H (98-107) mmol/L Carbon Dioxide 21 L (22-30) mmol/L BUN 38 H (9-20) mg/dL Creatinine 1.22 (0.66-1.25) mg/dL Glucose 104 H (74-99) mg/dL Calcium 9.2 (8.4-10.2) mg/dL AST 31 (17-59) U/L ALT 22 (21-72) U/L Alkaline Phosphatase 81 (38-126) U/L Total Protein 6.5 (6.3-8.2) g/dL Albumin 3.3 L (3.5-5.0) g/dL Current Medications Generic Name Dose Route Start Last Admin Trade Name Freq PRN Reason Stop Dose Admin Acetaminophen 650 mg 06/19/18 23:15 Tylenol Tab PO Q6HR PRN Fever and/ or Pain Albuterol/Ipratropium 3 ml 06/20/18 16:00 06/22/18 10:02 Duoneb 0.5 Mg-3 Mg/3 Ml Soln INHALATION 3 ml RT-QID [facility] Administration Albuterol/Ipratropium 3 ml 06/20/18 14:14 Duoneb 0.5 Mg-3 Mg/3 Ml Soln INHALATION RT-Q2H PRN Shortness Of Breath Or Wheezing Alprazolam 0.25 mg 06/22/18 12:20 Xanax PO Q6HR PRN Mild Anxiety Alprazolam 0.5 mg 06/22/18 12:20 Xanax PO Q6HR PRN Moderate Anxiety Benzocaine/Menthol 1 each 06/21/18 11:44 06/21/18 12:54 Cepacol Lozenge MUCOUS MEM 1 each Q4HR PRN Administration Sore Throat Doxazosin Mesylate 8 mg 06/20/18 21:00 06/22/18 07:55 Cardura PO 8 mg BID [facility]ULIA Administration Fentanyl 1 patch 06/20/18 13:00 06/20/18 17:31 Duragesic 75mcg/Hr Patch TRANSDERM 1 patch Q72H [facility] Administration Formoterol Fumarate 20 mcg 06/20/18 20:00 06/22/18 10:02 Perforomist INHALATION 20 mcg RT-BID [facility] Administration Guaifenesin 1,200 mg 06/20/18 21:00 06/22/18 07:55 Mucinex PO 1,200 mg Q12HR [facility] Administration Heparin Sodium (Porcine) 5,000 unit 06/20/18 08:00 06/22/18 07:54 Heparin SQ 5,000 unit Q8HR [facility] Administration Sodium Chloride 1,000 mls @ 100 mls/hr 06/19/18 23:15 06/22/18 02:26 Saline 0.9% IV Not Given .Q10H [facility] Piperacillin Sod/Tazobactam 100 mls @ 25 mls/hr 06/20/18 11:00 06/22/18 05:02 Sod 3.375 gm/ Sodium Chloride IVPB 25 mls/hr Q8H [facility] Administration Sodium Chloride 1,000 ml/ IV 1,000 mls @ 74 mls/hr 06/22/18 12:20 Solution IV 06/23/18 01:50 .[id number] ONE 1 ML/KG/HR Insulin Aspart 0 unit 06/20/18 17:30 06/22/18 07:51 Novolog SQ 1 unit ACHS [facility] Administration Protocol Levofloxacin 750 mg 06/21/18 21:00 06/21/18 22:37 Levaquin PO 750 mg HS [facility] Administration Melatonin 3 mg 06/21/18 21:00 06/21/18 22:36 Melatonin PO 3 mg HS [facility] Administration Miscellaneous Information 1 each 06/19/18 23:11 Pneumonia Protocol Utilized PO ONCE PRN Per Protocol Morphine Sulfate 4 mg 06/22/18 12:09 06/22/18 12:13 Morphine Sulfate (Inj) IVP 4 mg Q4HR PRN Administration CHEST PAIN Naloxone HCl 0.2 mg 06/20/18 01:10 Narcan IV Q2M PRN Opioid Reversal Nicotine 1 patch 06/20/18 17:45 06/22/18 07:56 Habitrol 21mg/24hr Patch TRANSDERM 1 patch DAILY [facility] Administration Nitroglycerin 1 inch 06/22/18 12:15 06/22/18 12:15 Nitro-Bid Oint TOPICAL 1 inch Q6HR [facility] Administration Prednisone 40 mg 06/23/18 09:00 PO DAILY [facility] Pregabalin 150 mg 06/20/18 21:00 06/22/18 07:56 Lyrica PO 150 mg BID [facility] Administration Intake and Output 06/21/18 06/22/18 06/22/18 22:59 06:59 14:59 Intake Total 800 1280 Balance 800 1280 Intake: Intake, IV Titration 800 800 Amount Sodium Chloride 0.9% 1, 800 800 000 ml @ 100 mls/hr IV . Q10H [facility] Rx#:[id number] Oral 480 Other: Voiding Method Urinal Urinal # Voids 3 3 06/22/18 12:02 06/22/18 12:02
[2018-06-22] MEDS ORDERED: NITROGLYCERIN 1000MCG/10ML SYRINGE INTRACORON ONE (13:30)
[2018-06-22] MEDS ORDERED: IOPAMIDOL-370 100ML BTL INJ ONE (13:35)
[2018-06-22] MEDS ORDERED: ZOLPIDEM 5 MG TAB PO PRN (13:52)
[2018-06-22] MEDS ORDERED: RX INFO: IV CONTRAST WAS GIVEN 1 EACH MISC MISCELLANE PRN (13:52)
[2018-06-22] MEDS ORDERED: ATROPINE SULFATE 0.1 MG/ML 10ML SYRINGE IV PRN (13:52)
[2018-06-22] MEDS ORDERED: MAG HYDROX/AL HYDROX/SIMETH 30 ML CUP PO PRN (13:52)
[2018-06-22] MEDS ORDERED: SODIUM CHLORIDE 0.9% 1,000 ML IV SCH (14:00)
--- NOTE | 2018-06-22 17:53 | ECHOF ---
Referral Reason: MEASUREMENTS -------- HEIGHT: 165.1 cm WEIGHT: 73.9 kg BP: RVIDd: 2.9 cm (< 3.3) IVSd: 1.2 cm (0.6 - 1.1) LVIDd: 4.1 cm (3.9 - 5.3) LVPWd: 1.3 cm (0.6 - 1.1) IVSs: 1.5 cm LVIDs: 3.6 cm LVPWs: 1.2 cm LAESV Index (A-L): 21.35 ml/m Ao Diam: 4.0 cm (2.0 - 3.7) AV Cusp: 1.6 cm (1.5 - 2.6) LA Diam: 4.0 cm (2.7 - 3.8) MV E Jose: 1.01 m/s MV DecT: 193 ms MV A Jose: 0.76 m/s MV E/A Ratio: 1.33 RAP: 5.00 mmHg RVSP: 26.36 mmHg FINDINGS -------- Sinus rhythm. This was a technically adequate study. The left ventricular size is normal. There is mild concentric left ventricular hypertrophy. Overa ll left ventricular systolic function is low-normal with, an EF between 50 - 55 %. Basal lateral LV wall motion is hypokinetic. The right ventricle is normal in size. Normal LA size by volume 22+/-6 ml/m2. The right atrial size is normal. The aortic valve is trileaflet, and appears structurally normal. No aortic stenosis or regurgitation. Mild mitral annular calcification present. Moderate mitral regurgitation is present. Mild tricuspid regurgitation present. Right ventricular systolic pressure is normal at < 35 mmHg. The right ventricular systolic pressure, as measured by Doppler, is 26.36mmHg. The pulmonic valve was not well visualized. There is no pulmonic regurgitation present. The aortic root size is normal. There is no pericardial effusion. CONCLUSIONS -------- 1. Sinus rhythm. 2. The left ventricular size is normal. 3. Overall left ventricular systolic function is low-normal with, an EF between 50 - 55 %. 4. Basal lateral LV wall motion is hypokinetic. 5. Normal LA size by volume 22+/-6 ml/m2. 6. The aortic valve is trileaflet, and appears structurally normal. No aortic stenosis or regurgitati on. 7. Mild mitral annular calcification present. 8. Moderate mitral regurgitation is present. 9. Mild tricuspid regurgitation present. 10. Right ventricular systolic pressure is normal at < 35 mmHg. 11. The pulmonic valve was not well visualized. 12. The aortic root size is normal. 13. There is no pericardial effusion. WICKER WORKER: Lexy Garcia RDCS
[2018-06-22] MEDS: NITROGLYCERIN SL TABS 0.4 MG TAB SUBLINGUAL PRN ×3 (19:28→19:42)
--- NOTE | 2018-06-22 20:16 | CC ---
CARDIAC CATHETERIZATION REPORT Mr. Thomas is a 67-year-old male who was admitted to the hospital with symptoms of dyspnea, was diagnosed with pneumonia and was ready to be discharged home when he started to have symptoms of chest discomfort and he had ST-segment depression in the lateral leads. In view of that, recommendation made regarding cardiac catheterization. The procedure as well as risks and complications were discussed with the patient who is in full understanding and agreement. PROCEDURE: Patient was brought to labor utilization superintendent after receiving fentanyl and Benadryl and achieving moderate conscious sedated state. Using Xylocaine anesthesia and Seldinger technique, a 6-Surinamese sheath was introduced in the right radial artery. Selective right and left coronary angiography performed using 5-Surinamese 3 and half bend right and left Yakelin catheter. Multiple views of the coronary artery including hemiaxial views obtained. Following that, angioplasty and stenting was performed. Following that, a 5-Surinamese tight pigtail catheter was introduced in the left ventricle and pressures were calculated. Following that, catheter and sheath were removed. Hemostasis was obtained with deployment of a TR band. There was no immediate complication. Patient was returned to his room in stable condition. FINDINGS: FLUOROSCOPY: There was calcification involving the right coronary artery. SELECTIVE CORONARY ANGIOGRAPHY: LEFT MAIN: This is a short size vessel bifurcating into left circumflex, left anterior descending artery, left main coronary artery has no evidence of high-grade stenosis. LEFT ANTERIOR DESCENDING CORONARY ARTERY: This is a large-sized vessel reaching toward the apex with a wraparound apex segment giving rise to a diagonal branch of moderate caliber proximally. The left anterior descending artery has diffuse intimal disease of 20% to 30%. The first diagonal branch in the mid segment has a 99% stenosis. The rest of the vessel has no high-grade stenosis. LEFT CIRCUMFLEX: This is a large nondominant vessel giving rise to a 1st obtuse marginal branch, small in caliber. At that obtuse marginal branch has 80% stenosis proximally. In the mid segment of the left circumflex, there is complex lesion of about 99% stenosis, distally gives rise to a large obtuse marginal branch that has mild intimal disease without high-grade stenosis. RIGHT CORONARY ARTERY: This vessel is totally occluded in the proximal segment with no antegrade flow. COLLATERALS: There is rich collaterals from the circumflex and to the right PDA and a PLV. LEFT VENTRICULOGRAM is not performed. HEMODYNAMICS: There was no gradient across the aortic valve. The left ventricular end-diastolic pressure was 20 mmHg. CONCLUSION: 1. Critical stenosis in the mid left circumflex. 2. Chronically occluded right coronary artery. 3. Significant stenosis involving the first diagonal branch. 4. Elevated left end-diastolic pressure. 5. Calcified coronary arteries. RECOMMENDATION: In view of finding anatomy, I recommend proceeding with angioplasty and stenting. The procedure as well as risks and complications were discussed with the patient who is in full understanding and agreement. MMODL / IJN: [id number] /
--- NOTE | 2018-06-22 20:25 | PTCA ---
PERCUTANEOUSTRANS CORORONARY ANGIOGRAPHY Mr. Thomas is a 67-year-old male with no prior documented history of coronary artery disease who presented with pneumonia and was scheduled to be discharged home today when he started to have complaints of chest discomfort. With ST-segment depression he underwent emergent cardiac catheterization that revealed a critical stenosis involving the mid left circumflex. In view of that, recommendation regarding angioplasty and stenting was made. The procedure, its risks and complications were discussed with the patient, who was in full understanding and agreement. PROCEDURE: A 6-Vietnamese XB3.5 guiding catheter was introduced into the system. After cannulating the left main, a 0.014 balanced medium weight J-wire was advanced across the lesion and positioned in the distal left circumflex. A 2.5 x 12 mm Trek balloon was advanced. One inflation at 10 atmospheres was done. Following that, the balloon was removed and a 3.5 x 18 mm Xience Ashley stent was deployed, post dilated at 16 atmospheres. Following that the balloon was removed and another 3.5 x 18 mm Xience Ashley stent was deployed proximal to the first one and post dilated at 16 atmospheres. After the last inflation, after appropriate wait, the balloon and the guidewire were withdrawn back into the guiding catheter. Images were obtained and repeated. Those images revealed stable successful stenting. At that point, the guiding catheter, the balloon and the guidewire were removed. Left ventricular end-diastolic pressure was calculated using a tight pigtail catheter. Following that, the catheter and sheath were removed. Hemostasis was obtained with deployment of a TR band. There was no immediate complication. Patient was returned to his room in stable condition. Of note, the patient received Angiomax per protocol as well as oral loading dose of Brilinta. His chest discomfort improved at the end of the procedure, and he has no significant EKG changes. RESULT: Successful stenting of the mid left circumflex with reduction of the stenosis from 99% to 0%. RECOMMENDATION: Patient will be continued on aspirin, Brilinta, beta rudi and statin. The importance of dual antiplatelet treatment was discussed with the patient, who is in full understanding and agreement. Duration of procedure was 39 minutes. MMKEO / NERISN: [id number] /
[2018-06-22 21:38] LABS: Glucose,Whole Blood 128 mg/dL (75-99)
[2018-06-22] MEDS: ATORVASTATIN 80 MG TAB PO SCH (21:39)
[2018-06-22] MEDS: TICAGRELOR 90 MG TAB PO SCH (21:40)
[2018-06-22] MEDS: MELATONIN 3 MG TABLET PO SCH (21:40)
[2018-06-22] MEDS: METOPROLOL TARTRATE 25 MG TAB PO SCH (21:40)
[2018-06-22] MEDS: LEVOFLOXACIN 750 MG TAB PO SCH (21:40)
[2018-06-23 05:29] LABS: Anisocytosis Slight; Basophils % (A) 0 %; Eosinophils % (A) 0 %; HCT 28.5 % (39.0-53.0); Lymphocytes # (A) 1.4 k/uL (1.0-4.8); Lymphocytes % (A) 15 %; MCH 27.4 pg (25.0-35.0); MCHC 31.6 g/dL (31.0-37.0); MCV 86.6 fL (80.0-100.0); Mean Platelet Volume 6.9; Monocytes # (A) 0.5 k/uL (0-1.0); Monocytes % (A) 5 %; Neutrophils % (A) 78 %; Platelet Count 249 k/uL (150-450); RBC 3.29 m/uL (4.30-5.90); RDW 16.4 % (11.5-15.5)
[2018-06-23 05:41] LABS: Calcium 8.9 mg/dL (8.4-10.2); Magnesium 2.1 mg/dL (1.6-2.3); Potassium 3.8 mmol/L (3.5-5.1)
[2018-06-23] MEDS: PIPERACILLIN-TAZOBACTAM 3.375 GM in SODIUM CHLORIDE 0.9% 100 ML IVPB SCH ×3 (06:06→17:34)
[2018-06-23 07:10] LABS: Glucose,Whole Blood 100 mg/dL (75-99)
[2018-06-23] MEDS: SODIUM CHLORIDE 0.9% 1,000 ML IV SCH ×2 (07:34→17:44)
[2018-06-23] MEDS: IPRATROPIUM-ALBUTEROL 3 ML NEB INHALATION SCH ×4 (07:34→19:38)
[2018-06-23] MEDS: INSULIN ASPART 100 UNIT/ML 1 ML 10 ML VIAL SQ SCH ×4 (07:34→20:32)
[2018-06-23] MEDS: FORMOTEROL FUMARATE 20 MCG/2 ML NEBU INHALATION SCH ×2 (07:34→19:38)
[2018-06-23] MEDS: METOPROLOL TARTRATE 25 MG TAB PO SCH ×2 (08:33→20:33)
[2018-06-23] MEDS: HEPARIN SODIUM,PORCINE 5,000 UNIT/ML 1 ML VIAL SQ SCH ×3 (08:33→23:04)
[2018-06-23] MEDS: guaiFENesin 600 MG TABLET.ER PO SCH ×2 (08:33→20:32)
[2018-06-23] MEDS: PREGABALIN 75 MG CAP PO SCH ×2 (08:33→20:33)
[2018-06-23] MEDS: DOXAZOSIN 4 MG TAB PO SCH ×2 (08:34→20:39)
[2018-06-23] MEDS: predniSONE 20 MG TAB PO SCH (08:34)
[2018-06-23] MEDS: NICOTINE 21MG/24HR PATCH TRANSDERM SCH (08:34)
[2018-06-23] MEDS: ASPIRIN 81 MG PO SCH (08:34)
[2018-06-23] MEDS: TICAGRELOR 90 MG TAB PO SCH ×2 (08:34→20:33)
[2018-06-23] MEDS: ALPRAZolam 0.5 MG TAB PO PRN ×2 (08:51→17:37)
--- NOTE | 2018-06-23 09:08 | PN ---
PROGRESS NOTE This is a gentleman who was seen by Dr. Bolivar yesterday, underwent a cardiac cath for non ST elevation MN, was found to have a total occlusion of RCA and performed stenting of mid circumflex. He also has a small diagonal with stenosis. He is doing well this morning. His EKG revealed sinus mechanism no acute changes. Laboratory data is good. I am recommending that we increase activity and hopefully move him to telemetry unit later this afternoon and home tomorrow. He will see Dr. Bolivar in the office in about a week or so. I have counseled regarding the need to work with smoking cessation, risk factor modification. I reviewed with him the importance of taking all his antiplatelet medications on a regular basis. Renal function is good. Platelet count is good. Hemoglobin is low but I think it has been chronically low for this patient, but I noted that when he was a bit dehydrated, his hemoglobin was 11.5 on arrival but seems to have come down. Average probably runs in the range of 10 or so. RENETTA / NERISN: [id number] /
--- NOTE | 2018-06-23 09:54 | XR ---
EXAMINATION TYPE: XR chest 1V portable DATE OF EXAM: 06/23/2018 HISTORY: pneumonia. REFERENCE: Previous study dated 06/21/2018. FINDINGS: There is a left shoulder hemiarthroplasty in place. The left lung is clear. The heart is not enlarged. There is a right basilar infiltrate. I suspect a s mall right effusion. IMPRESSION: 1. WHITE BASILAR INFILTRATE. 2. SMALL, RIGHT EFFUSION.
--- NOTE | 2018-06-23 11:33 | P.PN ---
Subjective Progress Note Date: 06/23/18 Patient is doing fairly well today. He denies any chest pain this morning. He remained in ICU. No acute events overnight reported by nursing staff. Objective - Vital Signs Vital signs: Vital Signs Temp 98 F 06/23/18 08:00 Pulse 67 06/23/18 10:00 Resp 13 06/23/18 10:00 BP 116/96 06/23/18 10:00 Pulse Ox 96 06/23/18 10:00 Intake & Output 06/22/18 06/23/18 06/23/18 18:59 06:59 18:59 Intake Total 522.12 1400 290 Output Total 700 550 600 Balance -177.88 850 -310 Weight 84.1 kg 84.1 kg Intake: IV 522.12 900 Piperacillin-Tazobactam 3 200 .375 gm In Sodium Chloride 0.9% 100 ml @ 25 mls/hr IVPB Q8H [facility] Rx#: [id number] Sodium Chloride 0.9% 1, 400 700 000 ml @ 100 mls/hr IV . Q10H [facility] Rx#:[id number] Oral 500 290 Output: Urine 700 550 600 Other: Voiding Method Urinal Urinal Urinal # Voids 3 1 0 - Exam General: The patient is awake and alert, in no distress Eye: there is normal conjunctiva bilaterally. Neck: The neck is supple, there is no JVD. Cardiovascular: Normal S1-S2, no S3-S4, no murmurs. Respiratory: Lungs clear to auscultation bilaterally Gastrointestinal: Abdomen is soft, nontender Musculoskeletal: There is no pedal edema. Neurological:. Speech is normal. Skin: Skin is warm and dry - Labs CBC & Chem 7: 06/23/18 04:47 06/23/18 04:47 Labs: Abnormal Lab Results - Last 24 Hours (Table) 06/22/18 06/22/18 06/22/18 Range/Units 11:55 12:02 12:02 RBC 3.39 L (4.30-5.90) m/uL Hgb 9.6 L (13.0-17.5) gm/dL Hct 29.5 L (39.0-53.0) % RDW 16.4 H (11.5-15.5) % Chloride (98-107) mmol/L Carbon Dioxide (22-30) mmol/L BUN (9-20) mg/dL Glucose (74-99) mg/dL POC Glucose (mg/dL) 114 H (75-99) mg/dL Troponin I 0.069 H* (0.000-0.034) ng/mL Albumin (3.5-5.0) g/dL LDL Cholesterol, Calc (0-99) mg/dL HDL Cholesterol (40-60) mg/dL 06/22/18 06/22/18 06/22/18 Range/Units 12:02 17:50 21:34 RBC (4.30-5.90) m/uL Hgb (13.0-17.5) gm/dL Hct (39.0-53.0) % RDW (11.5-15.5) % Chloride 110 H (98-107) mmol/L Carbon Dioxide 21 L (22-30) mmol/L BUN 38 H (9-20) mg/dL Glucose 104 H (74-99) mg/dL POC Glucose (mg/dL) 128 H (75-99) mg/dL Troponin I 0.505 H* (0.000-0.034) ng/mL Albumin 3.3 L (3.5-5.0) g/dL LDL Cholesterol, Calc (0-99) mg/dL HDL Cholesterol (40-60) mg/dL 06/22/18 06/23/18 06/23/18 Range/Units 23:43 04:47 04:47 RBC 3.29 L (4.30-5.90) m/uL Hgb 9.0 L (13.0-17.5) gm/dL Hct 28.5 L (39.0-53.0) % RDW 16.4 H (11.5-15.5) % Chloride 109 H (98-107) mmol/L Carbon Dioxide (22-30) mmol/L BUN 29 H (9-20) mg/dL Glucose (74-99) mg/dL POC Glucose (mg/dL) (75-99) mg/dL Troponin I 0.674 H* (0.000-0.034) ng/mL Albumin (3.5-5.0) g/dL LDL Cholesterol, Calc 103 H (0-99) mg/dL HDL Cholesterol 36 L (40-60) mg/dL 06/23/18 Range/Units 07:06 RBC (4.30-5.90) m/uL Hgb (13.0-17.5) gm/dL Hct (39.0-53.0) % RDW (11.5-15.5) % Chloride (98-107) mmol/L Carbon Dioxide (22-30) mmol/L BUN (9-20) mg/dL Glucose (74-99) mg/dL POC Glucose (mg/dL) 100 H (75-99) mg/dL Troponin I (0.000-0.034) ng/mL Albumin (3.5-5.0) g/dL LDL Cholesterol, Calc (0-99) mg/dL HDL Cholesterol (40-60) mg/dL Microbiology - Last 24 Hours (Table) 06/20/18 20:00 Gram Stain - Final Sputum Sputum Culture - Final Roxy albicans 06/19/18 19:17 Blood Culture - Preliminary Blood No Growth after 72 hours Assessment and Plan Assessment: This is a 67-year-old male with past medical history noted below who presented to the hospital with worsening confusion and cough. Patient was evaluated and was found to have multifocal pneumonia on computed tomography scan of the chest. Also noted a 5 cm ill-defined mass. Patient was admitted to the hospital and was seen and evaluated by pulmonology. His overall condition improved and patient was getting ready to be discharged on 06/22 when he started experiencing severe chest pain and a stat EKG showed ST segment depression involving the lateral leads. His discharge was canceled and cardiology consulted. Below is a list of his medical problems addressed during this hospitalization: 1. Non-ST elevation NM, status post left heart catheterization with successful stent placement to the mid left circumflex. Continue aspirin, metoprolol, Lipitor, and Brillenta. Cardiology following. 2. Community-acquired pneumonia, started on broad-spectrum antibiotic with Levaquin and Zosyn. Blood cultures negative to date. Patient will finish antibiotic course with Levaquin for 5 days 3. Acute hypoxic respiratory failure on presentation, now resolved. O2 sats greater than 90% on room air 4. COPD exacerbation, treated with bronchodilators and steroids. Will finish 5 days course of prednisone. Albuterol inhaler provided. Follow-up with pulmonology in the office in one week. 5. 5 cm ill-defined mass noted on computed tomography scan of the chest, most likely secondary to underlying pneumonia and atelectasis. Plan for repeat imaging in the next 4-6 weeks. 6. Tobacco abuse, counseled extensively to quit. Nicotine patch prescribed.
[2018-06-23 11:47] LABS: Glucose,Whole Blood 131 mg/dL (75-99)
[2018-06-23 12:11] LABS: Glucose,Whole Blood 128 mg/dL (75-99)
--- NOTE | 2018-06-23 12:28 | P.PN ---
Subjective Progress Note Date: 06/23/18 Principal diagnosis: Acute multifocal pneumonia, community-acquired, acute non-ST elevation myocardial infarction This 67-year-old white male patient with no significant medical history other than COPD, osteoarthritis, who was brought to the emergency department by his family for evaluation weakness, a fall, confusion, lethargy, cough, with phlegm production, chills. Patient states his been coughing for last 2 or 3 weeks, he was out shopping yesterday on 06/19/2018 with his daughter, and suddenly he stumbled and fell into things. Patient reported right shoulder and right hip pain. He has had some chills, denied any chest pain, he is producing yellow sputum. No hemoptysis. Patient is a current smoker, currently smoking half a pack to 1 pack a day over 20 years. No nausea, no vomiting, no diarrhea, no abdominal pain. In the emergency department chest x-ray showed right infrahilar consolidation and bilateral scattered pulmonary opacities. CT chest was completed and showed multifocal opacities consistent iwth multifocal bronchopneumonia, 5 cm ill-defined mass associated with focal pleural thickening , having the appearance of rounded atelectasis, although neoplasm could not be radiographically excluded. EEG showed sinus tach at acute ischemic changes. WBC was 9.3, hemoglobin is 11.5, lites were within normal limits, B1 is 30 and creatinine is 1.27. Troponin was negative 1, urinalysis was negative, urine drug screen detected opiates, the patient is on Sachse and fentanyl patch for his chronic pain related to osteoarthritis. Never seen a adolescent medicine specialist in the past, he is not on any oxygen or inhalers at home. Did have a low-grade fever and presentation with a temp of 100.4F, has been afebrile since. He is covered with a combination of Levaquin and Zosyn, IV steroids, and nebulized bronchodilators. On 06/21/2018 patient seen in follow-up on medical surgical floor, he is awake and alert, in no acute distress, tolerating ambulation, no fever or chills, vital signs are stable. But culture showed no growth, sputum culture Gram stain showed few yeast, epithelial cells, final culture is in progress. His labs have been reviewed, today's WBC is 10.8, hemoglobin is 9.5, sodium is 141, potassium is 4.2, chloride is 112, BUN is 32 and creatinine is 1.20. Remains on empiric antibiotics, combination of Levaquin and Zosyn, is on IV steroids, and nebulized bronchodilators, easier, lung sounds are positive for some scattered crackles, no significant wheezing On 06/22/2018 patient seen in follow-up on medical surgical floor. Recent had an episode of acute 10 out of 10 chest pain, that was accompanied by difficulty breathing, stat EKG was obtained which suggested the ischemic changes, ST segment depression in the inferior and lateral leads. His pain was unrelieved by aspirin, sublingual nitroglycerin, he was seen and evaluated by cardiology, and urgent heart catheterization was recommended. Currently patient is being taken down to the [facility]. Patient has been afebrile, vital signs have been stable. His labs have been reviewed, troponins have been ordered and pending at this time Patient was reevaluated today on 06/23/2018, he is presently in the ICU, he was transferred to the ICU yesterday after he developed an episode of chest pain/ angina, and acute changes were noted on the EKG patient underwent stenting of his left circumflex. Patient is doing well today, he is on multiple cardiac meds and on dual antiplatelet therapy. Remains on antibiotics for his initial presentation of multifocal pneumonia. Patient is mostly complaining of generalized weakness, hardly any cough no wheezing, no shortness of breath, no chest pain. CBC is relatively normal index was are normal renal profile is also about normal Objective - Vital Signs Vital signs: Vital Signs Temp 98 F 06/23/18 08:00 Pulse 72 06/23/18 11:56 Resp 13 06/23/18 10:00 BP 116/96 06/23/18 10:00 Pulse Ox 96 06/23/18 10:00 Intake & Output 06/22/18 06/23/18 06/23/18 18:59 06:59 18:59 Intake Total 522.12 1400 290 Output Total 700 550 600 Balance -177.88 850 -310 Weight 84.1 kg 84.1 kg Intake: IV 522.12 900 Piperacillin-Tazobactam 3 200 .375 gm In Sodium Chloride 0.9% 100 ml @ 25 mls/hr IVPB Q8H [facility] Rx#: [id number] Sodium Chloride 0.9% 1, 400 700 000 ml @ 100 mls/hr IV . Q10H [facility] Rx#:[id number] Oral 500 290 Output: Urine 700 550 600 Other: Voiding Method Urinal Urinal Urinal # Voids 3 1 0 - Exam GENERAL EXAM: Alert, pleasant 67-year-old white male, comfortable in no apparent distress. HEENT: PERRLA, EOMI, no icterus, neck is supple, no JVD, no stridor. CHEST: No chest wall deformity. Symmetrical expansion. LUNGS: Equal air entry with coarse basilar crackles CVS: Regular rate and rhythm, normal S1 and S2, no gallops, no murmurs, no rubs ABDOMEN: Soft, nontender. No hepatosplenomegaly, normal bowel sounds, no guarding or rigidity. EXTREMITIES: No clubbing, no edema, no cyanosis, 2+ pulses and upper and lower extremities. MUSCULOSKELETAL: Muscle strength and tone normal. SPINE: No scoliosis or deformity SKIN: No rashes CENTRAL NERVOUS SYSTEM: Alert and oriented -3. No focal deficits, tone is normal in all 4 extremities. PSYCHIATRIC: Alert and oriented -3. Appropriate affect. Intact judgment and insight. - Labs CBC & Chem 7: 06/23/18 04:47 06/23/18 04:47 Labs: Abnormal Lab Results - Last 24 Hours (Table) 06/22/18 06/22/18 06/22/18 Range/Units 12:02 12:02 12:02 RBC 3.39 L (4.30-5.90) m/uL Hgb 9.6 L (13.0-17.5) gm/dL Hct 29.5 L (39.0-53.0) % RDW 16.4 H (11.5-15.5) % Chloride 110 H (98-107) mmol/L Carbon Dioxide 21 L (22-30) mmol/L BUN 38 H (9-20) mg/dL Glucose 104 H (74-99) mg/dL POC Glucose (mg/dL) (75-99) mg/dL Troponin I 0.069 H* (0.000-0.034) ng/mL Albumin 3.3 L (3.5-5.0) g/dL LDL Cholesterol, Calc (0-99) mg/dL HDL Cholesterol (40-60) mg/dL 06/22/18 06/22/18 06/22/18 Range/Units 17:50 21:34 23:43 RBC (4.30-5.90) m/uL Hgb (13.0-17.5) gm/dL Hct (39.0-53.0) % RDW (11.5-15.5) % Chloride (98-107) mmol/L Carbon Dioxide (22-30) mmol/L BUN (9-20) mg/dL Glucose (74-99) mg/dL POC Glucose (mg/dL) 128 H (75-99) mg/dL Troponin I 0.505 H* 0.674 H* (0.000-0.034) ng/mL Albumin (3.5-5.0) g/dL LDL Cholesterol, Calc (0-99) mg/dL HDL Cholesterol (40-60) mg/dL 06/23/18 06/23/18 06/23/18 Range/Units 04:47 04:47 07:06 RBC 3.29 L (4.30-5.90) m/uL Hgb 9.0 L (13.0-17.5) gm/dL Hct 28.5 L (39.0-53.0) % RDW 16.4 H (11.5-15.5) % Chloride 109 H (98-107) mmol/L Carbon Dioxide (22-30) mmol/L BUN 29 H (9-20) mg/dL Glucose (74-99) mg/dL POC Glucose (mg/dL) 100 H (75-99) mg/dL Troponin I (0.000-0.034) ng/mL Albumin (3.5-5.0) g/dL LDL Cholesterol, Calc 103 H (0-99) mg/dL HDL Cholesterol 36 L (40-60) mg/dL 06/23/18 06/23/18 Range/Units 11:45 11:57 RBC (4.30-5.90) m/uL Hgb (13.0-17.5) gm/dL Hct (39.0-53.0) % RDW (11.5-15.5) % Chloride (98-107) mmol/L Carbon Dioxide (22-30) mmol/L BUN (9-20) mg/dL Glucose (74-99) mg/dL POC Glucose (mg/dL) 131 H 128 H (75-99) mg/dL Troponin I (0.000-0.034) ng/mL Albumin (3.5-5.0) g/dL LDL Cholesterol, Calc (0-99) mg/dL HDL Cholesterol (40-60) mg/dL Microbiology - Last 24 Hours (Table) 06/20/18 20:00 Gram Stain - Final Sputum Sputum Culture - Final Roxy albicans 06/19/18 19:17 Blood Culture - Preliminary Blood No Growth after 72 hours Assessment and Plan Assessment: #1. Angina, ST depression in the inferior and lateral leads, suggesting unstable angina, status post stenting of the circumflex, postoperative day #1. #2. Acute multifocal bronchopneumonia, likely community acquired improving clinically, repeat chest x-ray is showing some improvement. #3. Lethargy, altered mental status, weakness, likely related to sepsis related to the above #3. 5 cm right lower lobe subpleural soft tissue mass, likely related to atelectasis/pneumonic consolidation, neoplasm is less likely based on the characteristics but could not be completely ruled out, so will be followed #4. Chronic and ongoing nicotine dependence, a pack to 1 pack a day for last 20 years #5. COPD #6. Osteoarthritis #7. Chronic back pain, patient has a pain stimulator in his back Recommendation: Continue antibiotics, continue cardiac meds as recommended by cardiology, consider transferring the patient to a monitor bed on selective today, continue bronchodilators, consider discharge planning in the next 48 hours, and outpatient follow-up. His 5 cm masslike consolidation in the right lung has to be evaluated on outpatient basis, and I'm recommending a repeat CT of the chest in 3 months. Patient was made fully aware of the abnormality, and he was made fully aware that he should have close follow-up. The area could be malignant, unless it disappears in the next few months, then no further workup would be necessary. Otherwise we'll have to consider CT-guided needle biopsy. Time with Patient: Less than 30
[2018-06-23 15:18] VITALS: BMI 29.9
[2018-06-23 16:57] LABS: Glucose,Whole Blood 187 mg/dL (75-99)
[2018-06-23] MEDS: ATORVASTATIN 80 MG TAB PO SCH (20:32)
[2018-06-23] MEDS: MELATONIN 3 MG TABLET PO SCH (20:33)
[2018-06-23] MEDS: LEVOFLOXACIN 750 MG TAB PO SCH (20:33)
[2018-06-23 20:34] LABS: Glucose,Whole Blood 195 mg/dL (75-99)
[2018-06-24] MEDS: BENZOCAINE/MENTHOL LOZENG 1 EACH LOZENGE MUCOUS MEM PRN (01:18)
[2018-06-24] MEDS: PIPERACILLIN-TAZOBACTAM 3.375 GM in SODIUM CHLORIDE 0.9% 100 ML IVPB SCH ×2 (03:21→10:26)
[2018-06-24] MEDS: SODIUM CHLORIDE 0.9% 1,000 ML IV SCH ×2 (03:21→14:19)
[2018-06-24 04:52] LABS: Anisocytosis Slight; Basophils % (A) 0 %; Eosinophils % (A) 0 %; HCT 31.2 % (39.0-53.0); HGB 9.9 gm/dL (13.0-17.5); Lymphocytes # (A) 1.5 k/uL (1.0-4.8); Lymphocytes % (A) 20 %; MCH 27.7 pg (25.0-35.0); MCHC 31.6 g/dL (31.0-37.0); MCV 87.4 fL (80.0-100.0); Mean Platelet Volume 6.8; Monocytes # (A) 0.4 k/uL (0-1.0); Monocytes % (A) 6 %; Neutrophils # (A) 5.4 k/uL (1.3-7.7); Neutrophils % (A) 72 %; Platelet Count 290 k/uL (150-450); RBC 3.57 m/uL (4.30-5.90); RDW 16.4 % (11.5-15.5); WBC 7.5 k/uL (3.8-10.6)
[2018-06-24 05:09] LABS: Phosphorus 2.8 mg/dL (2.5-4.5)
[2018-06-24 07:15] LABS: Glucose,Whole Blood 99 mg/dL (75-99)
[2018-06-24] MEDS: INSULIN ASPART 100 UNIT/ML 1 ML 10 ML VIAL SQ SCH ×2 (07:45→12:23)
[2018-06-24] MEDS: guaiFENesin 600 MG TABLET.ER PO SCH (07:50)
[2018-06-24] MEDS: TICAGRELOR 90 MG TAB PO SCH (07:50)
[2018-06-24] MEDS: ASPIRIN 81 MG PO SCH (07:50)
[2018-06-24] MEDS: PREGABALIN 75 MG CAP PO SCH (07:50)
[2018-06-24] MEDS: HEPARIN SODIUM,PORCINE 5,000 UNIT/ML 1 ML VIAL SQ SCH (07:51)
[2018-06-24] MEDS: predniSONE 20 MG TAB PO SCH (07:51)
[2018-06-24] MEDS: METOPROLOL TARTRATE 25 MG TAB PO SCH (07:51)
[2018-06-24] MEDS: NICOTINE 21MG/24HR PATCH TRANSDERM SCH (07:51)
[2018-06-24] MEDS: DOXAZOSIN 4 MG TAB PO SCH (07:53)
[2018-06-24] MEDS: FORMOTEROL FUMARATE 20 MCG/2 ML NEBU INHALATION SCH (08:05)
[2018-06-24] MEDS: IPRATROPIUM-ALBUTEROL 3 ML NEB INHALATION SCH ×2 (08:05→11:46)
[2018-06-24 09:17] VITALS: TEMP 97.6
--- NOTE | 2018-06-24 11:54 | PN ---
PROGRESS NOTE Mr. Thomas underwent stenting of his circumflex by Dr. Bolivar 48 hours ago. He is doing well. He can be discharged. Vital signs are stable S1-S2 heard normally. Lungs reveal improved air entry with scattered rhonchi. Abdomen and lower extremity exam unchanged. The right radial cath site is clean and dry. I will switch him from Brilinta to Plavix because of insurance issues. I gave him prescriptions for Plavix, aspirin, atorvastatin, beta rudi and nitroglycerin and patient can be discharged today. He will see Dr. Bolivar in one week. MMODL / IJN: [id number] /
[2018-06-24 12:06] LABS: Glucose,Whole Blood 126 mg/dL (75-99)
--- NOTE | 2018-06-24 13:12 | P.PN ---
Subjective Progress Note Date: 06/24/18 Principal diagnosis: Acute multifocal pneumonia, community-acquired, acute non-ST elevation myocardial infarction This 67-year-old white male patient with no significant medical history other than COPD, osteoarthritis, who was brought to the emergency department by his family for evaluation weakness, a fall, confusion, lethargy, cough, with phlegm production, chills. Patient states his been coughing for last 2 or 3 weeks, he was out shopping yesterday on 06/19/2018 with his daughter, and suddenly he stumbled and fell into things. Patient reported right shoulder and right hip pain. He has had some chills, denied any chest pain, he is producing yellow sputum. No hemoptysis. Patient is a current smoker, currently smoking half a pack to 1 pack a day over 20 years. No nausea, no vomiting, no diarrhea, no abdominal pain. In the emergency department chest x-ray showed right infrahilar consolidation and bilateral scattered pulmonary opacities. CT chest was completed and showed multifocal opacities consistent iwth multifocal bronchopneumonia, 5 cm ill-defined mass associated with focal pleural thickening , having the appearance of rounded atelectasis, although neoplasm could not be radiographically excluded. EEG showed sinus tach at acute ischemic changes. WBC was 9.3, hemoglobin is 11.5, lites were within normal limits, B1 is 30 and creatinine is 1.27. Troponin was negative 1, urinalysis was negative, urine drug screen detected opiates, the patient is on [place] and fentanyl patch for his chronic pain related to osteoarthritis. Never seen a intervention specialist in the past, he is not on any oxygen or inhalers at home. Did have a low-grade fever and presentation with a temp of 100.4F, has been afebrile since. He is covered with a combination of Levaquin and Zosyn, IV steroids, and nebulized bronchodilators. On 06/21/2018 patient seen in follow-up on medical surgical floor, he is awake and alert, in no acute distress, tolerating ambulation, no fever or chills, vital signs are stable. But culture showed no growth, sputum culture Gram stain showed few yeast, epithelial cells, final culture is in progress. His labs have been reviewed, today's WBC is 10.8, hemoglobin is 9.5, sodium is 141, potassium is 4.2, chloride is 112, BUN is 32 and creatinine is 1.20. Remains on empiric antibiotics, combination of Levaquin and Zosyn, is on IV steroids, and nebulized bronchodilators, easier, lung sounds are positive for some scattered crackles, no significant wheezing On 06/22/2018 patient seen in follow-up on medical surgical floor. Recent had an episode of acute 10 out of 10 chest pain, that was accompanied by difficulty breathing, stat EKG was obtained which suggested the ischemic changes, ST segment depression in the inferior and lateral leads. His pain was unrelieved by aspirin, sublingual nitroglycerin, he was seen and evaluated by cardiology, and urgent heart catheterization was recommended. Currently patient is being taken down to the [facility]. Patient has been afebrile, vital signs have been stable. His labs have been reviewed, troponins have been ordered and pending at this time Patient was reevaluated today on 06/23/2018, he is presently in the ICU, he was transferred to the ICU yesterday after he developed an episode of chest pain/ angina, and acute changes were noted on the EKG patient underwent stenting of his left circumflex. Patient is doing well today, he is on multiple cardiac meds and on dual antiplatelet therapy. Remains on antibiotics for his initial presentation of multifocal pneumonia. Patient is mostly complaining of generalized weakness, hardly any cough no wheezing, no shortness of breath, no chest pain. CBC is relatively normal index was are normal renal profile is also about normal Reevaluated today on , patient continues to do well, denies any cough no wheezing no shortness of breath no chest pain. Remains on antibiotics, on multiple cardiac meds since he had his stent placed by cardiology. All labs were reviewed. Chest x-ray yesterday showed improvement in his infiltrates, small right lower lobe infiltrate remains. Hence the patient could be switched to oral antibiotics, and consider discharging the patient home on follow-up on outpatient basis. Patient could be discharged home on Levaquin. And should have follow-up with me in the next one week. Assuming the patient is cleared by cardiology for discharge today. Objective - Vital Signs Vital signs: Vital Signs Temp 97.6 F 06/24/18 09:00 Pulse 84 06/24/18 12:01 Resp 21 06/24/18 12:00 BP 110/70 06/24/18 12:00 Pulse Ox 94 L 06/24/18 12:00 Intake & Output 06/23/18 06/24/18 06/24/18 18:59 06:59 18:59 Intake Total 715 275 300 Output Total 2250 1500 1750 Balance -4864 -4306 -1450 Weight 84.1 kg 80.2 kg Intake: IV 185 275 50 NS KVO 60 100 Piperacillin-Tazobactam 3 125 175 50 .375 gm In Sodium Chloride 0.9% 100 ml @ 25 mls/hr IVPB Q8H [facility] Rx#: [id number] Oral 530 250 Output: Urine 2250 1500 1750 Other: Voiding Method Urinal Urinal Urinal # Voids 0 1 - Exam GENERAL EXAM: Alert, pleasant 67-year-old white male, comfortable in no apparent distress. HEENT: PERRLA, EOMI, no icterus, neck is supple, no JVD, no stridor. CHEST: No chest wall deformity. Symmetrical expansion. LUNGS: Equal air entry no crackles, no rhonchi and no wheezes. CVS: Regular rate and rhythm, normal S1 and S2, no gallops, no murmurs, no rubs ABDOMEN: Soft, nontender. No hepatosplenomegaly, normal bowel sounds, no guarding or rigidity. EXTREMITIES: No clubbing, no edema, no cyanosis, 2+ pulses and upper and lower extremities. MUSCULOSKELETAL: Muscle strength and tone normal. SPINE: No scoliosis or deformity CENTRAL NERVOUS SYSTEM: Alert and oriented -3. No focal deficits, tone is normal in all 4 extremities. PSYCHIATRIC: Alert and oriented -3. Appropriate affect. Intact judgment and insight. - Labs CBC & Chem 7: 06/24/18 04:09 06/24/18 04:09 Labs: Abnormal Lab Results - Last 24 Hours (Table) 06/23/18 06/23/18 06/24/18 Range/Units 16:37 20:19 04:09 RBC 3.57 L (4.30-5.90) m/uL Hgb 9.9 L (13.0-17.5) gm/dL Hct 31.2 L (39.0-53.0) % RDW 16.4 H (11.5-15.5) % BUN (9-20) mg/dL POC Glucose (mg/dL) 187 H 195 H (75-99) mg/dL 06/24/18 06/24/18 Range/Units 04:09 12:03 RBC (4.30-5.90) m/uL Hgb (13.0-17.5) gm/dL Hct (39.0-53.0) % RDW (11.5-15.5) % BUN 27 H (9-20) mg/dL POC Glucose (mg/dL) 126 H (75-99) mg/dL Microbiology - Last 24 Hours (Table) 06/19/18 19:17 Blood Culture - Preliminary Blood No Growth after 96 hours 06/20/18 20:00 Gram Stain - Final Sputum Sputum Culture - Final Roxy albicans Assessment and Plan Assessment: #1. Angina, ST depression in the inferior and lateral leads, suggesting unstable angina, status post stenting of the circumflex, postoperative day #2 #2. Acute multifocal bronchopneumonia, likely community acquired improving clinically, repeat chest x-ray is showing some improvement. #3. Lethargy, altered mental status, weakness, likely related to sepsis related to the above, resolved today. #3. 5 cm right lower lobe subpleural soft tissue mass, likely related to atelectasis/pneumonic consolidation, neoplasm is less likely based on the characteristics but could not be completely ruled out, so will be followed #4. Chronic and ongoing nicotine dependence, a pack to 1 pack a day for last 20 years #5. COPD #6. Osteoarthritis #7. Chronic back pain, patient has a pain stimulator in his back Recommendation: Switch patient to oral antibiotics in the form of Levaquin, continue bronchodilators, check O2 saturation on room air, and decide whether the patient qualifies for home O2, and if he does patient is to be discharged on home O2. Continue steroids, bronchodilators, antibiotics, patient will be cleared for discharge today, and I will see him on outpatient basis assuming he is cleared by cardiology. Time with Patient: Less than 30
--- NOTE | 2018-06-24 14:56 | P.DS ---
Providers Date of admission: 06/19/18 23:25 Expected date of discharge: 06/24/18 Attending physician: Vick Benson MD Consults: 06/19/18 23:11 Consult Physician Routine Consulting Provider: Jerardo Sauer Consult Reason/Comments: Hypoxia; Pneumonia; Right lung mass Do you want consulting provider notified?: Yes 06/22/18 11:46 Consult Physician Stat Consulting Provider: Estefany Woody Consult Reason/Comments: shect pain/ st depression Do you want consulting provider notified?: Yes 06/22/18 13:52 Consult Physician Routine Consulting Provider: [facility] Consult Reason/Comments: Post Interventional patient Do you want consulting provider notified?: Already Contacted Primary care physician: Stated None Hospital Course: This is a 67-year-old male with past medical history noted below who presented to the hospital with worsening confusion and cough. Patient was evaluated and was found to have multifocal pneumonia on computed tomography scan of the chest. Also noted a 5 cm ill-defined mass. Patient was admitted to the hospital and was seen and evaluated by pulmonology. His overall condition improved and patient was getting ready to be discharged on 06/22 when he started experiencing severe chest pain and a stat EKG showed ST segment depression involving the lateral leads. His discharge was canceled and cardiology consulted. Below is a list of his medical problems addressed during this hospitalization: 1. Non-ST elevation [place], status post left heart catheterization with successful stent placement to the mid left circumflex. Continue aspirin, metoprolol, Lipitor, and Brillenta. 2. Community-acquired pneumonia, started on broad-spectrum antibiotic with Levaquin and Zosyn. Blood cultures negative to date. Patient will finish antibiotic course with Levaquin for 5 days 3. Acute hypoxic respiratory failure on presentation, now resolved. O2 sats greater than 90% on room air 4. COPD exacerbation, treated with bronchodilators and steroids. Will finish 5 days course of prednisone. Albuterol inhaler provided. Follow-up with pulmonology in the office in one week. 5. 5 cm ill-defined mass noted on computed tomography scan of the chest, most likely secondary to underlying pneumonia and atelectasis. Plan for repeat imaging in the next 4-6 weeks. 6. Tobacco abuse, counseled extensively to quit. Nicotine patch prescribed. Patient Condition at Discharge: Fair Plan - Discharge Summary Discharge Rx Participant: Yes New Discharge Prescriptions: New Albuterol Inhaler [Ventolin Hfa Inhaler] 1 - 2 puff INHALATION RT-Q6H PRN #1 inhaler PRN Reason: Wheezing guaiFENesin [Mucinex] 1,200 mg PO Q12HR #10 tablet.er Levofloxacin [Levaquin] 500 mg PO DAILY #5 tab Nicotine 14Mg/24Hr Patch [Habitrol] 1 patch TRANSDERM DAILY #30 patch Aspirin 81 mg PO DAILY #30 chew Atorvastatin [Lipitor] 40 mg PO HS #30 tablet Clopidogrel [Plavix] 75 mg PO DAILY #30 tab Melatonin 3 mg PO HS #30 tablet Metoprolol Tartrate [Lopressor] 25 mg PO BID #60 tab Continue Doxazosin Mesylate 8 mg PO BID HYDROcodone/APAP 10-325MG [[place] 10-325] 1 tab PO BID PRN PRN Reason: Pain fentaNYL [Duragesic 75MCG/HR] 1 patch TRANSDERM Q72H Pregabalin [Lyrica] 150 mg PO BID Discontinued Celecoxib [CeleBREX] 200 mg PO DAILY Discharge Medication List Doxazosin Mesylate 8 mg PO BID 04/16/15 [History] HYDROcodone/APAP 10-325MG [[place] 10-325] 1 tab PO BID PRN 06/20/18 [History] Pregabalin [Lyrica] 150 mg PO BID 06/20/18 [History] fentaNYL [Durages[place] 75MCG/HR] 1 patch TRANSDERM Q72H 06/20/18 [History] Albuterol Inhaler [Ventolin Hfa Inhaler] 1 - 2 puff INHALATION RT-Q6H PRN #1 inhaler 06/22/18 [Rx] Levofloxacin [Levaquin] 500 mg PO DAILY #5 tab 06/22/18 [Rx] Nicotine 14Mg/24Hr Patch [Habitrol] 1 patch TRANSDERM DAILY #30 patch 06/22/18 [ Rx] guaiFENesin [Mucinex] 1,200 mg PO Q12HR #10 tablet.er 06/22/18 [Rx] Aspirin 81 mg PO DAILY #30 chew 06/24/18 [Rx] Atorvastatin [Lipitor] 40 mg PO HS #30 tablet 06/24/18 [Rx] Clopidogrel [Plavix] 75 mg PO DAILY #30 tab 12/16/18 [Rx] Melatonin 3 mg PO HS #30 tablet 06/24/18 [Rx] Metoprolol Tartrate [Lopressor] 25 mg PO BID #60 tab 06/24/18 [Rx] Follow up Appointment(s)/Referral(s): Jerardo Sauer MD [STAFF PHYSICIAN] - 07/05/18 9:00 am None,Stated [Primary Care Provider] - 1-2 days Discharge Disposition: HOME SELF-CARE
[2018-06-24 16:57] VITALS: BP 146/91; PULSE 92; RESP 12
[2018-06-25] MEDS ORDERED: CLOPIDOGREL 75 MG TAB PO SCH (09:00)
== END 2018-06-24 17:01 | disposition home or self-care (01) | DRG 853 ==
LOC: EC 18:37 → 4SSUR 23:25 → 3SCARD 06-22 13:12 → 2SICU 06-22 14:28
PROVIDERS: ADMIT Internal Medicine; ATTEND Internal Medicine
PROC: B2111ZZ Fluoroscopy of Multiple Coronary Arteries using Low Osmolar Contrast (ICD-10-PCS; 2018-06-22)
PROC: 027034Z Dilation of Coronary Artery, One Artery with Drug-eluting Intraluminal Device, Percutaneous Approach (ICD-10-PCS; principal; 2018-06-22 12:30)
PROC: 4A023N7 Measurement of Cardiac Sampling and Pressure, Left Heart, Percutaneous Approach (ICD-10-PCS; 2018-06-22 12:30)
DX: A41.9 Sepsis, unspecified organism (principal); G93.41 Metabolic encephalopathy; I21.4 Non-ST elevation (NSTEMI) myocardial infarction; J18.0 Bronchopneumonia, unspecified organism; J96.01 Acute respiratory failure with hypoxia; J44.0 Chronic obstructive pulmonary disease with (acute) lower respiratory infection; J44.1 Chronic obstructive pulmonary disease with (acute) exacerbation; J45.901 Unspecified asthma with (acute) exacerbation; J98.11 Atelectasis; D64.9 Anemia, unspecified; F17.210 Nicotine dependence, cigarettes, uncomplicated; Z71.6 Tobacco abuse counseling; G89.29 Other chronic pain; I25.10 Atherosclerotic heart disease of native coronary artery without angina pectoris; I49.3 Ventricular premature depolarization; M19.90 Unspecified osteoarthritis, unspecified site; S09.90XA Unspecified injury of head, initial encounter; W01.0XXA Fall on same level from slipping, tripping and stumbling without subsequent striking against object, initial encounter; Z79.52 Long term (current) use of systemic steroids; Z79.899 Other long term (current) drug therapy; R91.8 Other nonspecific abnormal finding of lung field
CPT/HCPCS: 36415; 36600; 70450; 71045; 71046; 71260; 73502; 80048; 80053; 80061; 80306; 81003; 82550; 82553; 82805; 83036; 83605; 83615; 83735; 84100; 84484; 85025; 85027; 85347; 85610; 85730; 87040; 87070; 87205; 87502; 93005; 93306; 93458; 94640; 94760; 96365; 96366; 96367; 96372; 96375; 96376; 99285; C1874

== ENCOUNTER → 2018-08-29 | Outpatient (CLI) | payer MEDICARE ==
--- NOTE | 2018-08-29 15:02 | CT ---
EXAMINATION TYPE: CT chest w con DATE OF EXAM: 08/29/2018 COMPARISON: 06/19/2018 HISTORY: Chest mass CT DLP: 534 mGycm. Automated Exposure Control for Dose Reduction was Utilized. TECHNIQUE: CT scan of the thorax is performed following with IV Contrast, patient injected with 100 ml mL of Isovue 300. FINDINGS: LUNGS: There is a right apical solid 5 mm pulmonary nodule on series 4 image 14 superimposed on a pebbles kground of moderate emphysematous change and biapical pleural-parenchymal scarring. There is a persis tent right middle lobe opacity measuring approximately 1.2 x 2.5 cm that appears smaller in measureme nt on the prior exam where this measured up to 5 cm. Again there is a focal area of pleural thickenin g adjacent to this measuring 7 mm on series 3 image 36. Surrounding vessels leading up to this consol idation. Again this could represent round atelectasis or postobstructive atelectasis from endobronchi al mucous plugging or lesion. Bronchoscopy could be considered. Although there is improved aeration of the lungs in comparison to the prior of 06/19/2018 there is a persistent nodular opacity medially within the right lower lobe that appears worsened from the prior on series 4 image 31 through 39. MEDIASTINUM: There are no greater than 1 cm hilar or mediastinal lymph nodes. Calcified benign subca rinal lymph node is seen. Moderate three-vessel coronary artery calcifications are present. Heart is mildly enlarged. Small hiatal hernia is seen. No pericardial effusion is seen. Ascending thoracic ao rta appears upper limits of normal size measuring 3.8 cm as is the aortic root measuring 3.9 cm. OTHER: There are cholecystectomy clips present. Nonspecific left perinephric fat stranding is partial ly visualized. Mild multilevel degenerative changes of the thoracic spine and nerve root stimulator a re seen. IMPRESSION: 1. Overall improved aeration of the chest in comparison to the prior of 06/19/2018. There is a slight ly focally worsening opacity in the superior medial right lower lobe that may represent persistent pn eumonia or inflammatory process. 2. Decreasing size of the right middle lobe consolidation with adjacent pleural thickening favored to represent round atelectasis. Postobstructive atelectasis from underlying endobronchial neoplasm or m ucous plugging are possible and PET/CT or bronchoscopy could be performed for further evaluation. 3. 5 mm right apical pulmonary nodules unchanged superimposed upon a background of moderate emphysema .
== END ==
LOC: RADCTMAIN 12:47
PROVIDERS: ATTEND Internal Medicine
DX: J43.9 Emphysema, unspecified (principal); R91.8 Other nonspecific abnormal finding of lung field
CPT/HCPCS: 82565; 84520; 71260; 36415; Q9967

== ENCOUNTER → 2018-10-05 | Outpatient (CLI) | payer MEDICARE ==
[2018-10-05 11:57] LABS: Albumin 4.5 g/dL (3.80-4.90); Albumin/Globulin Ratio 2.14 (1.60-3.17); Anion Gap 8.4 mmol/L (4.00-12.00); Calcium 9.6 mg/dL (8.7-10.3); Carbon Dioxide 26.6 mmol/L (21.6-31.8); Globulin 2.1 g/dL (1.6-3.3); LDL Cholesterol,Calculated 73.2 mg/dL (0.0-131.0); Total Bilirubin 0.5 mg/dL (0.2-1.2); Total Protein 6.6 g/dL (6.2-8.2); VLDL Calculation 18.8 mg/dL (5.00-40.00)
== END | disposition home or self-care (01) ==
LOC: LABWHC1 07:56
PROVIDERS: ATTEND Internal Medicine Interventional Cardiology
DX: E78.2 Mixed hyperlipidemia (principal)
CPT/HCPCS: 36415; 80053; 80061

== ENCOUNTER 2018-10-29 08:27 | Inpatient (IN) | payer MEDICARE ==
[2018-10-29] MEDS ORDERED: ASPIRIN 81 MG PO STA (08:46)
[2018-10-29] MEDS ORDERED: NITROGLYCERIN SL TABS 0.4 MG TAB SUBLINGUAL STA ×3 (08:46)
--- NOTE | 2018-10-29 08:49 | ED ---
General Adult HPI - General Chief complaint: Chest Pain Stated complaint: Chest discomfort Time Seen by Provider: 10/29/18 08:36 Source: patient, RN notes reviewed Mode of arrival: ambulatory Limitations: no limitations - History of Present Illness Initial comments: Patient is a pleasant 68-year-old male presenting to the emergency Department with complaints of chest discomfort. Onset was around 520 this morning after waking up. Patient complains of tightness in the chest. Patient does have some associated dyspnea. Patient does have history of similar symptoms years ago associated with heart attack. No nausea or vomiting. No diaphoresis. No radiation. Discomfort is left anterior chest. Discomfort is currently rated 7/10. - Related Data Home Medications Medication Instructions Recorded Confirmed Doxazosin Mesylate 8 mg PO BID 04/16/15 10/29/18 HYDROcodone/APAP 10-325MG [[place] 1 tab PO BID PRN 06/20/18 10/29/18 10-325] Pregabalin [Lyrica] 150 mg PO BID 06/20/18 10/29/18 fentaNYL [[place]ages[place] 75MCG/HR] 1 patch TRANSDERM Q72H 06/20/18 10/29/18 Atorvastatin [Lipitor] 80 mg PO HS 10/29/18 10/29/18 Previous Rx's Medication Instructions Recorded Aspirin 81 mg PO DAILY #30 chew 06/24/18 Clopidogrel [Plavix] 75 mg PO DAILY #30 tab 06/24/18 Melatonin 3 mg PO HS #30 tablet 06/24/18 Metoprolol Tartrate [Lopressor] 25 mg PO BID #60 tab 06/24/18 Allergies Allergy/AdvReac Type Severity Reaction Status Date / Time No Known Allergies Allergy Verified 10/29/18 09:33 Review of Systems ROS Statement: Those systems with pertinent positive or pertinent negative responses have been documented in the HPI. ROS Other: All systems not noted in ROS Statement are negative. Constitutional: Denies: fever Eyes: Denies: eye pain ENT: Denies: ear pain Respiratory: Reports: dyspnea. Denies: cough Cardiovascular: Reports: palpitations Endocrine: Denies: fatigue Gastrointestinal: Denies: abdominal pain Genitourinary: Denies: dysuria Musculoskeletal: Denies: back pain Skin: Denies: rash Neurological: Denies: weakness Past Medical History Past Medical History: Asthma, COPD, Osteoarthritis (OA) History of Any Multi-Drug Resistant Organisms: None Reported Past Surgical History: Back Surgery, Orthopedic Surgery Additional Past Surgical History / Comment(s): Rt shoulder and unknown knee. Pain stimulator in back. Past Anesthesia/Blood Transfusion Reactions: No Reported Reaction Past Psychological History: No Psychological Hx Reported Smoking Status: Current every day smoker Past Alcohol Use History: None Reported Past Drug Use History: None Reported - Past Family History Family Family Medical History: Unable to Obtain General Exam Limitations: no limitations General appearance: alert, in no apparent distress Head exam: Present: atraumatic Eye exam: Present: normal appearance, PERRL ENT exam: Present: normal oropharynx Neck exam: Present: normal inspection Respiratory exam: Present: normal lung sounds bilaterally. Absent: chest wall tenderness Cardiovascular Exam: Present: regular rate, normal rhythm Expanded Peripheral pulses: 2+: Radial (R), Radial (L), Posterior Tibialis (R), Posterior Tibialis (L), Dorsalis Pedis (R), Dorsalis Pedis (L) GI/Abdominal exam: Present: soft. Absent: tenderness Extremities exam: Present: normal inspection. Absent: pedal edema, calf tend erness Neurological exam: Present: alert Psychiatric exam: Present: normal affect, normal mood Skin exam: Present: normal color Course Vital Signs 10/29/18 10/29/18 10/29/18 08:32 08:40 09:00 Temperature 97.8 F Pulse Rate 81 70 Respiratory 26 H Rate Blood Pressure 142/67 133/84 O2 Sat by Pulse 98 95 95 Oximetry 10/29/18 10/29/18 10/29/18 09:30 10:00 10:10 Temperature Pulse Rate 70 63 Respiratory 16 Rate Blood Pressure 117/74 122/70 151/75 O2 Sat by Pulse 92 L Oximetry EKG Findings - EKG Comments: EKG Findings:: Normal sinus rhythm at 76. TN 132. QRS 84. QT 400. QTc 450. Normal axis. Normal QRS. No acute ST change. Medical Decision Making - Medical Decision Making Patient reevaluated and somewhat improved. Patient updated on results and plan. Case was discussed in detail with Dr. Salcido, who will admit covered for hospital call. His group has previously admitted this patient. - Lab Data Result diagrams: 10/29/18 08:44 10/29/18 08:44 Lab Results 04/22/19 04/22/19 04/22/19 Range/Units 08:44 08:44 08:44 WBC 6.3 (3.8-10.6) k/uL RBC 4.05 L (4.30-5.90) m/uL Hgb 12.1 L (13.0-17.5) gm/dL Hct 35.7 L (39.0-53.0) % MCV 88.1 (80.0-100.0) fL MCH 30.0 (25.0-35.0) pg MCHC 34.0 (31.0-37.0) g/dL RDW 14.6 (11.5-15.5) % Plt Count 215 (150-450) k/uL Neutrophils % 73 % Lymphocytes % 16 % Monocytes % 5 % Eosinophils % 3 % Basophils % 0 % Neutrophils # 4.6 (1.3-7.7) k/uL Lymphocytes # 1.0 (1.0-4.8) k/uL Monocytes # 0.3 (0-1.0) k/uL Eosinophils # 0.2 (0-0.7) k/uL Basophils # 0.0 (0-0.2) k/uL PT 10.2 (9.0-12.0) sec INR 0.9 (<1.2) APTT 24.7 (22.0-30.0) sec D-Dimer 0.95 H (<0.60) mg/L FEU Sodium 140 (137-145) mmol/L Potassium 4.1 (3.5-5.1) mmol/L Chloride 107 (98-107) mmol/L Carbon Dioxide 22 (22-30) mmol/L Anion Gap 11 mmol/L BUN 20 (9-20) mg/dL Creatinine 1.28 H (0.66-1.25) mg/dL Est GFR (CKD-EPI)AfAm 66 (>60 ml/min/1.73 sqM) Est GFR (CKD-EPI)NonAf 57 (>60 ml/min/1.73 sqM) Glucose 111 H (74-99) mg/dL Calcium 9.8 (8.4-10.2) mg/dL Magnesium 1.8 (1.6-2.3) mg/dL Total Bilirubin 0.7 (0.2-1.3) mg/dL AST 26 (17-59) U/L ALT 34 (21-72) U/L Alkaline Phosphatase 123 (38-126) U/L Troponin I (0.000-0.034) ng/mL NT-Pro-B Natriuret Pep pg/mL Total Protein 7.0 (6.3-8.2) g/dL Albumin 4.3 (3.5-5.0) g/dL 10/29/18 10/29/18 Range/Units 08:44 08:44 WBC (3.8-10.6) k/uL RBC (4.30-5.90) m/uL Hgb (13.0-17.5) gm/dL Hct (39.0-53.0) % MCV (80.0-100.0) fL MCH (25.0-35.0) pg MCHC (31.0-37.0) g/dL RDW (11.5-15.5) % Plt Count (150-450) k/uL Neutrophils % % Lymphocytes % % Monocytes % % Eosinophils % % Basophils % % Neutrophils # (1.3-7.7) k/uL Lymphocytes # (1.0-4.8) k/uL Monocytes # (0-1.0) k/uL Eosinophils # (0-0.7) k/uL Basophils # (0-0.2) k/uL PT (9.0-12.0) sec INR (<1.2) APTT (22.0-30.0) sec D-Dimer (<0.60) mg/L FEU Sodium (137-145) mmol/L Potassium (3.5-5.1) mmol/L Chloride (98-107) mmol/L Carbon Dioxide (22-30) mmol/L Anion Gap mmol/L BUN (9-20) mg/dL Creatinine (0.66-1.25) mg/dL Est GFR (CKD-EPI)AfAm (>60 ml/min/1.73 sqM) Est GFR (CKD-EPI)NonAf (>60 ml/min/1.73 sqM) Glucose (74-99) mg/dL Calcium (8.4-10.2) mg/dL Magnesium (1.6-2.3) mg/dL Total Bilirubin (0.2-1.3) mg/dL AST (17-59) U/L ALT (21-72) U/L Alkaline Phosphatase (38-126) U/L Troponin I <0.012 (0.000-0.034) ng/mL NT-Pro-B Natriuret Pep 251 pg/mL Total Protein (6.3-8.2) g/dL Albumin (3.5-5.0) g/dL - Radiology Data Radiology results: report reviewed (Computed tomography scan the chest reveals no pulmonary embolism.) Disposition Clinical Impression: Chest pain, Dyspnea Disposition: ADMITTED IP TO THIS HOSP Is patient prescribed a controlled substance at d/c from ED?: No Referrals: None,Stated [Primary Care Provider] - 1-2 days Decision Time: 10:46
[2018-10-29 09:17] LABS: Basophils % (A) 0 %; Eosinophils # (A) 0.2 k/uL (0-0.7); Eosinophils % (A) 3 %; HCT 35.7 % (39.0-53.0); HGB 12.1 gm/dL (13.0-17.5); Lymphocytes % (A) 16 %; MCV 88.1 fL (80.0-100.0); Mean Platelet Volume 7.2; Monocytes # (A) 0.3 k/uL (0-1.0); Monocytes % (A) 5 %; Neutrophils # (A) 4.6 k/uL (1.3-7.7); Neutrophils % (A) 73 %; Platelet Count 215 k/uL (150-450); RBC 4.05 m/uL (4.30-5.90); RDW 14.6 % (11.5-15.5); WBC 6.3 k/uL (3.8-10.6)
[2018-10-29 09:31] LABS: INR 0.9 (<1.2); Partial Thromboplastin Time 24.7 sec (22.0-30.0); Prothrombin Time 10.2 sec (9.0-12.0)
[2018-10-29 09:36] LABS: D-Dimer 0.95 mg/L FEU (<0.60)
[2018-10-29 09:53] LABS: Albumin 4.3 g/dL (3.5-5.0); Calcium 9.8 mg/dL (8.4-10.2); Magnesium 1.8 mg/dL (1.6-2.3); Potassium 4.1 mmol/L (3.5-5.1); Total Bilirubin 0.7 mg/dL (0.2-1.3)
--- NOTE | 2018-10-29 10:19 | CT ---
EXAMINATION TYPE: CT angio chest DATE OF EXAM: 10/29/2018 COMPARISON: 08/29/2018 HISTORY: chest pain CT DLP: 471.3 mGycm CONTRAST: CT chest with contrast and 3D reconstruction with MIP imaging is performed with IV Contrast, patient injected with 100 mL of Isovue 370. Contrast-enhanced CT of the chest was performed through the course of the pulmonary arteries with dong g and mediastinal window settings submitted. 3D reconstruction with MIP imaging was also performed. PULMONARY ARTERIES: The pulmonary arteries and their major tributaries are patent. I do not see whit dence for sizable filling defect to suggest pulmonary embolic process. LUNGS: Bibasilar atelectasis noted. Pleural-based infiltrate the right upper lobe is unchanged relati ve to prior examination. Underlying mass is not excluded. MEDIASTINUM: Thoracic aorta is of normal c aliber,however, evaluation is limited given timing of the contrast bolus. If there is concern for th oracic aortic pathology consider [place]. Correlate clinically . The heart is not enlarged. No evidence for mediastinal mass. No mediastinal lymph nodes greater than 1cm. HILAR STRUCTURES: No evidence for mass. No hilar lymph nodes greater than 1 cm. UPPER ABDOMEN: No significant abnormality is seen. IMPRESSION: 1. No evidence for Pulmonary embolism at this time.
[2018-10-29] MEDS ORDERED: IPRATROPIUM-ALBUTEROL 3 ML NEB INHALATION PRN (10:46)
[2018-10-29] MEDS ORDERED: methylPREDNISolone SOD SUCCI 125 MG/2 ML VIAL IV STA (10:46)
[2018-10-29] MEDS ORDERED: NITROGLYCERIN SL TABS 0.4 MG TAB SUBLINGUAL PRN (10:46)
[2018-10-29] MEDS ORDERED: NITROGLYCERIN OINT 1 INCH/GM PACKET TOPICAL SCH (12:00)
[2018-10-29] MEDS: CLOPIDOGREL 75 MG TAB PO SCH (12:16)
[2018-10-29] MEDS: methylPREDNISolone SOD SUCCI 125 MG/2 ML VIAL IV SCH ×2 (12:16→17:30)
[2018-10-29] MEDS: METOPROLOL TARTRATE 25 MG TAB PO SCH ×2 (12:16→20:47)
[2018-10-29] MEDS: IPRATROPIUM-ALBUTEROL 3 ML NEB INHALATION SCH ×3 (13:33→19:55)
--- NOTE | 2018-10-29 13:38 | P.CRDCN ---
History of Present Illness History of present illness: This is a pleasant 68-year-old male past medical history significant for coronary artery disease with multivessel disease status post stent placement to the mid circumflex artery in June 2018 in the setting of a non-ST elevated myocardial infarction. He also has hypertension, dyslipidemia, COPD and former nicotine dependence. He quit smoking in June. He follows in the office with Dr. Bolivar. We've been asked to see him in consultation secondary to chest discomfort. He states this came on acutely yesterday he started coughing and was coughing up yellow tinged sputum. All he fell yesterday was the cough. However, This morning around 5 AM she started feeling a tight sensation in the left precordial region with radiation through to the back that was very similar to how he felt in June. This was associated with shortness of breath. He denies any palpitations, nausea, vomiting or diaphoresis. He took one sublingual nitroglycerin tablet at home and achieved no relief of his chest discomfort. He also tried using his inhaler which did not help his sy mptoms either. Since arriving at the hospital he continues to have chest discomfort despite Nitropaste being applied. The continues to cough and states this pain is not exacerbated by cough, movement of his body or deep inspiration. He has been started on DuoNeb nebulizer treatments as well as IV steroids. Cardiac catheterization performed in June revealed significant stenosis of the midcircumflex artery status post successful stent placement, chronic total occlusion of the proximal RCA with no antegrade flow, diffuse disease of approximately 30% in the LAD and significant disease noted of the first diagonal branch. EKG reveals sinus mechanism with no acute ST or T-wave abnormalities. CTA chest is negative for pulmonary embolism. No evidence of pleural based infiltrate at the right upper lobe unchanged from previous exam, underlying mass is not entirely excluded. Thoracic aorta is of normal caliber. Laboratory data reviewed, WBC 6.3, hemoglobin 12.1, platelets 2:15, d-dimer 0.95, sodium 140, potassium 4.1, creatinine 1.28 with a GFR 57, magnesium 1.8, cardiac enzymes negative 1, NT proBNP 251. Current cardiac medications include aspirin 81 mg daily, Plavix 75 mg daily, Lopressor 25 mg twice a day and atorvastatin 80 mg daily. Most recent echocardiogram obtained in June 2018 reveals preserved left ventricular systolic function with ejection fraction 50-55%, basal lateral LV wall motion hypokinesia, moderate MR and mild TR noted. At the time of my exam: CONSTITUTIONAL: Denies fever. Denies chills. EYES: Denies blurred vision. Denies vision changes. Denies eye pain. EARS, NOSE, MOUTH & THROAT: Denies headache. Denies sore throat. Denies ear pain. CARDIOVASCULAR: Complains of chest pain. Denies shortness of breath. Denies orthopnea. Denies PND. Denies palpitations. RESPIRATORY: Complains of cough. GASTROINTESTINAL: Denies abdominal pain. Denies diarrhea. Denies constipation. Denies nausea. Denies vomiting. MUSCULOSKELETAL: Denies myalgias. INTEGUMENTARY: Denies pruitis. Denies rash. NEUROLOGIC: Denies numbness. Denies tingling. Denies weakness. PSYCHIATRIC: Denies anxiety. Denies depression. ENDOCRINE: Denies fatigue. Denies weight change. Denies polydipsia. Denies polyurina. GENITOURINARY: Denies burning, hematuria or urgency with micturation. HEMATOLOGIC: Denies history of anemia. Denies bleeding. Blood pressure 124/76 heart rate 52 afebrile maintaining oxygen saturation on nasal cannula GENERAL: This is a 68-year-old male in no apparent distress at the time of my examination. HEENT: Head is atraumatic, normocephalic. Pupils are equal, round. Sclerae anicteric. Conjunctivae are clear. Mucous membranes of the mouth are moist. Neck is supple. There is no jugular venous distention. No carotid bruit is heard. LUNGS: Scattered rhonchi, faint expiratory wheeze noted at the bases, no rales. No chest wall tenderness is noted on palpation or with deep breathing. HEART: Regular rate and rhythm without murmurs, rubs or gallops. S1 and S2 heard. ABDOMEN: Soft, nontender. Bowel sounds are heard. No organomegaly noted. EXTREMITIES: No evidence of peripheral edema and no calf tenderness noted. VASCULAR: Radial and dorsalis pedis pulses palpated, no evidence of clubbing. NEUROLOGIC: Patient is awake, alert and oriented x3. ASSESSMENT Unstable angina, known to have underlying multi-vessel CAD. Was recently started on imdur in September but has not been taking. He was unaware there was a new prescription. Multi-vessel coronary artery disease s/p recent stent placement to circumflex artery June 2018 Hypertension Dyslipidemia COPD Former nicotine dependence PLAN Continue to obtain serial cardiac enzymes to rule out an acute event. Obtain a limited echocardiogram to assess LV function. Resume aspirin 81 mg daily, Plavix 75 mg daily, atorvastatin 80 mg daily, Lopressor 25 mg twice a day, Imdur 30 mg daily and initiate Lovenox 80 mg subcu twice a day. Hydrate the patient with 0.9% normal saline at 75 mL per hour. Repeat renal function in the morning. Nothing by mouth after midnight tonight. Depending on clinical course, patient symptoms and diagnostic tests finding we will consider coronary angiography versus stress testing in the morning. Thank you kindly for this consultation. Nurse Practitioner note has been reviewed, I agree with a documented findings and plan of care. Patient was seen and examined. Past Medical History Past Medical History: Asthma, Coronary Artery Disease (CAD), Chest Pain / Angina, COPD, Hyperlipidemia, Myocardial Infarction ([place]), Osteoarthritis (OA), Pneumonia, Prostate Disorder, Seizure Disorder Additional Past Medical History / Comment(s): R lung mass-being monitored, chronic back pain, numbness/tingling arms/legs, bilateral carpal tunnel syndrome, balance problems, BPH, seizure in 2003. Last Myocardial Infarction Date:: 06/22/18 History of Any Multi-Drug Resistant Organisms: None Reported Past Surgical History: Adenoidectomy, Back Surgery, Cholecystectomy, Heart Catheterization With Stent, Orthopedic Surgery, Tonsillectomy Additional Past Surgical History / Comment(s): Multiple back surgeries including a pain stimulator in place/hardware, R knee surgery with hardware, L rotator cuff repair x 4/cadaver bone, colonoscopy Past Anesthesia/Blood Transfusion Reactions: No Reported Reaction Date of Last Stent Placement:: 06/22/18 Smoking Status: Former smoker - Past Family History Father Family Medical History: Cancer Additional Family Medical History / Comment(s): Liver cancer. Mother Additional Family Medical History / Comment(s): Brain aneurysm Sister(s) Family Medical History: Cancer Additional Family Medical History / Comment(s): Lung cancer Brother(s) Family Medical History: No Reported History Family Family Medical History: Unable to Obtain Medications and Allergies Home Medications Medication Instructions Recorded Confirmed Type Doxazosin Mesylate 8 mg PO BID 04/16/15 10/29/18 History HYDROcodone/APAP 10-325MG [[place] 1 tab PO BID PRN 12/12/18 04/22/19 History 10-325] Pregabalin [Lyrica] 150 mg PO BID 06/20/18 10/29/18 History fentaNYL [Duragesic 75MCG/HR] 1 patch TRANSDERM Q72H 06/20/18 10/29/18 History Aspirin 81 mg PO DAILY #30 chew 06/24/18 10/29/18 Rx Clopidogrel [Plavix] 75 mg PO DAILY #30 tab 06/24/18 10/29/18 Rx Melatonin 3 mg PO HS #30 tablet 06/24/18 10/29/18 Rx Metoprolol Tartrate [Lopressor] 25 mg PO BID #60 tab 06/24/18 10/29/18 Rx Atorvastatin [Lipitor] 80 mg PO HS 10/29/18 10/29/18 History Allergies Allergy/AdvReac Type Severity Reaction Status Date / Time No Known Allergies Allergy Verified 10/29/18 09:33 Physical Exam Vitals: Vital Signs Temp Pulse Pulse Resp BP BP Pulse Ox 10/29/18 12:00 97.6 F 52 L 124/76 97 10/29/18 11:44 97.8 F 63 16 151/75 92 L 10/29/18 10:10 63 16 151/75 10/29/18 10:00 122/70 10/29/18 09:30 70 117/74 92 L 10/29/18 09:00 70 133/84 95 10/29/18 08:40 95 10/29/18 08:32 97.8 F 81 26 H 142/67 98 Intake and Output 10/28/18 10/29/18 10/29/18 22:59 06:59 14:59 Other: Voiding Method Toilet Weight 77.111 kg Results 10/29/18 08:44 10/29/18 08:44 Cardiac Enzymes 10/29/18 10/29/18 Range/Units 08:44 08:44 AST 26 (17-59) U/L Troponin I <0.012 (0.000-0.034) ng/mL Coagulation 10/29/18 Range/Units 08:44 PT 10.2 (9.0-12.0) sec APTT 24.7 (22.0-30.0) sec CBC 10/29/18 Range/Units 08:44 WBC 6.3 (3.8-10.6) k/uL RBC 4.05 L (4.30-5.90) m/uL Hgb 12.1 L (13.0-17.5) gm/dL Hct 35.7 L (39.0-53.0) % Plt Count 215 (150-450) k/uL Comprehensive Metabolic Panel 10/29/18 Range/Units 08:44 Sodium 140 (137-145) mmol/L Potassium 4.1 (3.5-5.1) mmol/L Chloride 107 (98-107) mmol/L Carbon Dioxide 22 (22-30) mmol/L BUN 20 (9-20) mg/dL Creatinine 1.28 H (0.66-1.25) mg/dL Glucose 111 H (74-99) mg/dL Calcium 9.8 (8.4-10.2) mg/dL AST 26 (17-59) U/L ALT 34 (21-72) U/L Alkaline Phosphatase 123 (38-126) U/L Total Protein 7.0 (6.3-8.2) g/dL Albumin 4.3 (3.5-5.0) g/dL Current Medications Generic Name Dose Route Start Last Admin Trade Name Freq PRN Reason Stop Dose Admin Albuterol/Ipratropium 3 ml 10/29/18 12:00 Duoneb 0.5 Mg-3 Mg/3 Ml Soln INHALATION RT-QID YULIA Albuterol/Ipratropium 3 ml 10/29/18 10:46 Duoneb 0.5 Mg-3 Mg/3 Ml Soln INHALATION RT-Q4H PRN Shortness Of Breath Or Wheezing Aspirin 81 mg 10/30/18 09:00 Aspirin PO DAILY [facility] Atorvastatin Calcium 80 mg 10/29/18 21:00 Lipitor PO HS [facility] Clopidogrel Bisulfate 75 mg 10/29/18 11:30 10/29/18 12:16 Plavix PO 75 mg DAILY [facility] Administration Isosorbide Mononitrate 30 mg 10/29/18 12:45 Imdur PO DAILY [facility] Methylprednisolone Sodium Succinate 60 mg 10/29/18 12:00 10/29/18 12:16 Solu-Medrol IV 60 mg Q6HR YULIA Administration Metoprolol Tartrate 25 mg 10/29/18 11:30 10/29/18 12:16 Lopressor PO 25 mg BID YULIA Administration Nitroglycerin 0.4 mg 10/29/18 10:46 Nitrostat SUBLINGUAL Q5M PRN Chest Pain Intake and Output 10/28/18 10/29/18 10/29/18 22:59 06:59 14:59 Other: Voiding Method Toilet Weight 77.111 kg Patient Weight 10/30/18 06:59 Weight 77.111 kg 10/29/18 08:44 10/29/18 08:44
[2018-10-29] MEDS: SODIUM CHLORIDE 0.9% 1,000 ML IV SCH (14:10)
[2018-10-29] MEDS: ISOSORBIDE MONONITRATE ER 30 MG TAB.ER.24H PO SCH (14:10)
[2018-10-29] MEDS: ENOXAPARIN 80 MG/0.8 ML SYRINGE SQ SCH ×2 (14:10→20:48)
[2018-10-29] MEDS: ACETAMINOPHEN TAB 325 MG TAB PO PRN (15:06)
--- NOTE | 2018-10-29 16:19 | P.CNPUL ---
History of Present Illness Consult date: 10/29/18 Requesting physician: Scout E Ramírez Reason for consult: dyspnea, cough, chest pain Chief complaint: Dyspnea, cough, chest pain History of present illness: This is a 68-year-old white male patient, who sees Dr. Gomez the pulmonary clinic for history of COPD with underlying FEV1 of 1.9 L or 67% of predicted, consistent with stage II COPD, not oxygen dependent, patient is a ex-smoker, previous history of pneumonia, previous history of myocardial infarction, coronary artery disease with previous stenting, hypertension, dyslipidemia. Patient presented to the emergency department on 10/29/2018 with complaints of coughing, increasing shortness of breath, phlegm production, wheezing, left-kristin ed sharp chest pain, which is reproducible to palpation. His chest pain is left-sided, and is at the left rib margin. EKG was negative for any acute ST or T-wave abnormalities, lab work did not reveal any leukocytosis, white blood cell count was 6.3, hemoglobin was 12.1, d-dimer was mildly elevated to 0.95, electrolytes were within normal limits, BUN was 20 creatinine was 1.28. Troponins have been negative 2, proBNP was within normal limits at 251, he changes chest was completely, and showed no evidence for pulmonary embolism, bibasilar atelectasis was noted, pleural based infiltrate in the right lower lobe appeared to be unchanged and was compared to prior CT angios on 08/29/2018, hilar structures were negative for any evidence of mass, no hilar lymphadenopathy. This masslike consolidation in the right lower lobe is being followed by Dr. Gomez in the outpatient setting with follow-up CT chest. he had previously been given an option of CT-guided needle biopsy, bronchoscopy or observation and patient had opted for observation. No fever or chills, currently on supplemental oxygen at 2 L and his pulse ox is 92%, hemodynamically stable. He is being evaluated by cardiology, his most recent echocardiogram in June 2018 showed preserved left ventricle systolic function with an EF of 50-55%. Repeat echocardiogram is pending at this time. We are asked to evaluate the patient for his dyspnea, and history of COPD, CT chest did not show any clear evidence of pulmonary infiltrate Review of Systems All systems: negative Constitutional: Denies chills, Denies fever Eyes: denies blurred vision, denies pain Ears, nose, mouth and throat: Denies headache, Denies sore throat Cardiovascular: Reports chest pain, Denies shortness of breath Respiratory: Reports cough with sputum, Reports dyspnea, Reports respiratory infections, Reports wheezing, Denies cough Gastrointestinal: Denies abdominal pain, Denies diarrhea, Denies nausea, Denies vomiting Musculoskeletal: Denies myalgias Integumentary: Denies pruritus, Denies rash Neurological: Denies numbness, Denies weakness Psychiatric: Denies anxiety, Denies depression Endocrine: Denies fatigue, Denies weight change Past Medical History Past Medical History: Asthma, Coronary Artery Disease (CAD), Chest Pain / Angina, COPD, Hyperlipidemia, Myocardial Infarction ([place]), Osteoarthritis (OA), Pneumonia, Prostate Disorder, Seizure Disorder Additional Past Medical History / Comment(s): R lung mass-being monitored, chronic back pain, numbness/tingling arms/legs, bilateral carpal tunnel syndrome, balance problems, BPH, seizure in 2003. Last Myocardial Infarction Date:: 06/22/18 History of Any Multi-Drug Resistant Organisms: None Reported Past Surgical History: Adenoidectomy, Back Surgery, Cholecystectomy, Heart Catheterization With Stent, Orthopedic Surgery, Tonsillectomy Additional Past Surgical History / Comment(s): Multiple back surgeries including a pain stimulator in place/hardware, R knee surgery with hardware, L rotator cuff repair x 4/cadaver bone, colonoscopy Past Anesthesia/Blood Transfusion Reactions: No Reported Reaction Date of Last Stent Placement:: 06/22/18 Smoking Status: Former smoker - Past Family History Father Family Medical History: Cancer Additional Family Medical History / Comment(s): Liver cancer. Mother Additional Family Medical History / Comment(s): Brain aneurysm Sister(s) Family Medical History: Cancer Additional Family Medical History / Comment(s): Lung cancer Brother(s) Family Medical History: No Reported History Family Family Medical History: Unable to Obtain Medications and Allergies Home Medications Medication Instructions Recorded Confirmed Type Doxazosin Mesylate 8 mg PO BID 04/16/15 10/29/18 History HYDROcodone/APAP 10-325MG [[place] 1 tab PO BID PRN 06/20/18 10/29/18 History 10-325] Pregabalin [Lyrica] 150 mg PO BID 06/20/18 10/29/18 History fentaNYL [Duragesic 75MCG/HR] 1 patch TRANSDERM Q72H 06/20/18 10/29/18 History Aspirin 81 mg PO DAILY #30 chew 06/24/18 10/29/18 Rx Clopidogrel [Plavix] 75 mg PO DAILY #30 tab 06/24/18 10/29/18 Rx Melatonin 3 mg PO HS #30 tablet 06/24/18 10/29/18 Rx Metoprolol Tartrate [Lopressor] 25 mg PO BID #60 tab 06/24/18 10/29/18 Rx Atorvastatin [Lipitor] 80 mg PO HS 10/29/18 10/29/18 History Allergies Allergy/AdvReac Type Severity Reaction Status Date / Time No Known Allergies Allergy Verified 10/29/18 09:33 Physical Exam Vitals: Vital Signs Temp Pulse Pulse Resp BP BP Pulse Ox 10/29/18 13:41 90 10/29/18 13:33 88 10/29/18 12:00 97.6 F 52 L 124/76 97 10/29/18 11:44 97.8 F 63 16 151/75 92 L 10/29/18 10:10 63 16 151/75 10/29/18 10:00 122/70 10/29/18 09:30 70 117/74 92 L 10/29/18 09:00 70 133/84 95 10/29/18 08:40 95 10/29/18 08:32 97.8 F 81 26 H 142/67 98 Intake and Output 10/29/18 10/29/18 10/29/18 06:59 14:59 22:59 Other: Voiding Method Toilet # Voids 1 Weight 77.111 kg GENERAL EXAM: Alert, pleasant, 68-year-old white male, on 2 L of oxygen with a pulse ox of 92%, comfortable in no apparent distress. HEAD: Normocephalic/atraumatic. EYES: Normal reaction of pupils, equal size. Conjunctiva pink, sclera white. NOSE: Clear with pink turbinates. THROAT: No erythema or exudates. NECK: No masses, no JVD, no thyroid enlargement, no adenopathy. CHEST: No chest wall deformity. Symmetrical expansion. Left-sided chest wall tenderness at the left rib margin, with the sharp pain, and patient has reproducible tenderness with palpation LUNGS: Equal air entry with bibasilar crackles CVS: Regular rate and rhythm, normal S1 and S2, no gallops, no murmurs, no rubs ABDOMEN: Soft, nontender. No hepatosplenomegaly, normal bowel sounds, no guarding or rigidity. EXTREMITIES: No clubbing, no edema, no cyanosis, 2+ pulses and upper and lower extremities. MUSCULOSKELETAL: Muscle strength and tone normal. SPINE: No scoliosis or deformity SKIN: No rashes CENTRAL NERVOUS SYSTEM: Alert and oriented -3. No focal deficits, tone is normal in all 4 extremities. PSYCHIATRIC: Alert and oriented -3. Appropriate affect. Intact judgment and insight. Results - Laboratory Findings CBC and BMP: 10/29/18 08:44 10/29/18 08:44 PT/INR, D-dimer PT 10.2 sec (9.0-12.0) 10/29/18 08:44 INR 0.9 (<1.2) 10/29/18 08:44 D-Dimer 0.95 mg/L FEU (<0.60) H 10/29/18 08:44 Abnormal lab findings: Abnormal Labs 10/29/18 10/29/18 10/29/18 08:44 08:44 08:44 RBC 4.05 L Hgb 12.1 L Hct 35.7 L D-Dimer 0.95 H Creatinine 1.28 H Glucose 111 H - Diagnostic Findings CT scan - chest: report reviewed Additional studies: EKG reviewed Assessment and Plan Plan: Assessment: #1. Dyspnea, cough, ingestion, related to acute exacerbation of COPD and tracheobronchitis #2. Left-sided reproducible chest pain, EKG is without any acute ischemic changes, troponins are negative 2, being followed by cardiology #3. Stage II COPD, with FEV1 of 1.9 L or 67% of predicted, oxygen dependent at baseline #4. Former smoker, quit smoking in June 2018, carries [id number] smoking history #5. Coronary artery disease, with history of previous stenting in the setting of acute myocardial infarction in June 2018 #6. Previous episode of pneumonia #7. 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 Osteoarthritis #9. Chronic back pain, patient has a pain stimulator Plan: CTA chest reviewed, no evidence of acute pulmonary infiltrates, area in the right lower lobe base subpleural soft tissue mass was again noted and this is being followed on an outpatient basis. Patient will be treated for acute exacerbation of COPD, will continue with IV steroids, will and oral Zithromax, nebulized bronchodilators. He is being evaluated by cardiology. We'll continue to follow I performed a history & physical examination of the patient and discussed their management with my nurse practitioner, Gretta Bass. I reviewed the nurse practitioner's note and agree with the documented findings and plan of care. Lung sounds are positive for scattered rhonchi, and bibasilar crackles throughout the lung [place]. The findings and the impression was discussed with the patient. I attest to the documentation by the nurse practitioner. Time with Patient: Greater than 30
[2018-10-29] MEDS ORDERED: CALCIUM CARBONATE 500 MG CHEWABLE PO PRN (16:30)
[2018-10-29] MEDS: PANTOPRAZOLE 40 MG/10 ML VIAL IVP SCH (17:03)
[2018-10-29] MEDS: AZITHROMYCIN 500 MG TAB PO SCH (17:03)
[2018-10-29] MEDS: SYMBICORT 160-4.5 MCG INHALER INHALATION SCH (20:17)
[2018-10-29] MEDS: ATORVASTATIN 80 MG TAB PO SCH (20:47)
--- NOTE | 2018-10-29 23:32 | P.HPIM ---
History of Present Illness H&P Date: 10/29/18 Chief Complaint: Chest pain Patient is a 68-year-old male with a known history of multivessel coronary artery disease with history of mid circumflex stent on 06/19/2018, non-ST rate ID, COPD, quit smoking 4 months ago, hyperlipidemia, osteoarthritis, right lung mass being monitored, chronic back pain, BPH and other multiple medical problems came to ER with the complaints of chest pain 8 out of 10 in severity left retrosternal region, squeezing type. Patient says that he was waking up in the morning and suddenly her up chest pain around 5 AM. Denied any radiation of the pain. Associated with shortness of breath. No nausea vomiting or diaphoresis. No headache or dizziness or lightheadedness. Patient says that he had pneumonia in June 2018 and followed by acute ID. No fever no chills. Patient says that he does have cough all day yesterday. No dysuria or hematuria. Denied any abdominal pain. EKG showed normal sinus rhythm with sinus arrhythmia. Troponin 2 negative ProBNP 251, magnesium 1.8 D-dimer is 0.95. CGI is on the chest showed no evidence of pulmonary embolism. 2-D echocardiogram in June 2018 showed ejection fraction 55-50%, basal late ral LV wall motion hypokinesia, moderate MR and mild TR noted. Review of Systems Constitutional: Patient denies any fever or chills . No generalized weakness or weight loss. Abdomen: Patient denied nausea vomiting and diarrhea and abdominal pain. Cardiovascular: Patient does have chest pain or shortness of breath. No palpitations. No leg swelling.. Respiratory: Cough with whitish to brown sputum production. Positive shortness of breath Neurologic: Patient denied any numbness or tingling headache. Musculoskeletal: Patient denies any complaints of joint swelling or deformity. Skin: Negative Psychiatric: Negative Endocrine: No heat or cold intolerance. No recent weight gain. Genitourinary: No dysuria or hematuria. All other 14 point ROS negative except the above Past Medical History Past Medical History: Asthma, Coronary Artery Disease (CAD), Chest Pain / Angina, COPD, Hyperlipidemia, Myocardial Infarction (ID), Osteoarthritis (OA), Pneumonia, Prostate Disorder, Seizure Disorder Additional Past Medical History / Comment(s): R lung mass-being monitored, chr onic back pain, numbness/tingling arms/legs, bilateral carpal tunnel syndrome, balance problems, BPH, seizure in 2003. Last Myocardial Infarction Date:: 06/22/18 History of Any Multi-Drug Resistant Organisms: None Reported Past Surgical History: Adenoidectomy, Back Surgery, Cholecystectomy, Heart Catheterization With Stent, Orthopedic Surgery, Tonsillectomy Additional Past Surgical History / Comment(s): Multiple back surgeries including a pain stimulator in place/hardware, R knee surgery with hardware, L rotator cuff repair x 4/cadaver bone, colonoscopy Past Anesthesia/Blood Transfusion Reactions: No Reported Reaction Date of Last Stent Placement:: 06/22/18 Smoking Status: Former smoker - Past Family History Father Family Medical History: Cancer Additional Family Medical History / Comment(s): Liver cancer. Mother Additional Family Medical History / Comment(s): Brain aneurysm Sister(s) Family Medical History: Cancer Additional Family Medical History / Comment(s): Lung cancer Brother(s) Family Medical History: No Reported History Family Family Medical History: Unable to Obtain Medications and Allergies Home Medications Medication Instructions Recorded Confirmed Type Doxazosin Mesylate 8 mg PO BID 04/16/15 10/29/18 History HYDROcodone/APAP 10-325MG [Gamaliel 1 tab PO BID PRN 06/20/18 10/29/18 History 10-325] Pregabalin [Lyrica] 150 mg PO BID 06/20/18 10/29/18 History fentaNYL [Duragesic 75MCG/HR] 1 patch TRANSDERM Q72H 06/20/18 10/29/18 History Aspirin 81 mg PO DAILY #30 chew 06/24/18 10/29/18 Rx Clopidogrel [Plavix] 75 mg PO DAILY #30 tab 06/24/18 10/29/18 Rx Melatonin 3 mg PO HS #30 tablet 06/24/18 10/29/18 Rx Metoprolol Tartrate [Lopressor] 25 mg PO BID #60 tab 06/24/18 10/29/18 Rx Atorvastatin [Lipitor] 80 mg PO HS 10/29/18 10/29/18 History Allergies Allergy/AdvReac Type Severity Reaction Status Date / Time No Known Allergies Allergy Verified 10/29/18 09:33 Physical Exam Vitals: Vital Signs Temp Pulse Pulse Resp BP BP BP 10/29/18 16:00 98.4 F 72 16 124/62 10/29/18 13:41 90 10/29/18 13:33 88 10/29/18 12:00 97.6 F 52 L 124/76 10/29/18 11:44 97.8 F 63 16 151/75 10/29/18 10:10 63 16 151/75 10/29/18 10:00 122/70 10/29/18 09:30 70 117/74 10/29/18 09:00 70 133/84 10/29/18 08:40 10/29/18 08:32 97.8 F 81 26 H 142/67 Pulse Ox 10/29/18 16:00 95 10/29/18 13:41 10/29/18 13:33 10/29/18 12:00 97 10/29/18 11:44 92 L 10/29/18 10:10 10/29/18 10:00 10/29/18 09:30 92 L 10/29/18 09:00 95 10/29/18 08:40 95 10/29/18 08:32 98 Intake and Output 10/29/18 10/29/18 10/29/18 06:59 14:59 22:59 Intake Total 222 Balance 222 Intake: Oral 222 Other: Voiding Method Toilet # Voids 1 Weight 77.111 kg PHYSICAL EXAMINATION: Patient is lying in the bed comfortably, no acute distress, awake alert and oriented.. HEENT: Normocephalic. Neck is supple. Pupils reactive. Nostrils clear. Oral ca vity is moist. Ears reveal no drainage. Neck reveals no JVD, carotid bruits, or thyromegaly. CHEST EXAMINATION: Trachea is central. Symmetrical expansion. Mild expiratory wheeze. Nonlabored breathing. No crackles no rhonchi.. CARDIAC: Normal S1, S2 with no gallops. No murmurs ABDOMEN: Soft. Bowel sounds normal. No organomegaly. No abdominal bruits. Extremities: reveal no edema. No clubbing or cyanosis Neurologically awake, alert, oriented x3 with well-coordinated movements. No focal deficits noted Skin: No rash or skin lesions. Psychiatric: Coperative. Nonsuicidal Musculoskeletal: No joint swelling or deformity. Normal range of motion. Results CBC & Chem 7: 10/29/18 08:44 10/29/18 08:44 Labs: Abnormal Lab Results - Last 24 Hours (Table) 10/29/18 10/29/18 10/29/18 Range/Units 08:44 08:44 08:44 RBC 4.05 L (4.30-5.90) m/uL Hgb 12.1 L (13.0-17.5) gm/dL Hct 35.7 L (39.0-53.0) % D-Dimer 0.95 H (<0.60) mg/L FEU Creatinine 1.28 H (0.66-1.25) mg/dL Glucose 111 H (74-99) mg/dL Thrombosis Risk Factor Assmnt - DVT/VTE Prophylaxis DVT/VTE Prophylaxis: Pharmacologic Prophylaxis ordered - Choose All That Apply Any of the Below Risk Factors Present?: Yes Each Factor Represents 1 point: Abnormal pulmonary function (COPD), Obesity (BMI >25) Other Risk Factors: Yes Each Risk Factor Represents 2 Points: Age 61-74 years Other congenital or acquired thrombophilia - If yes, enter type in comment: No Thrombosis Risk Factor Assessment Total Risk Factor Score: 4 Thrombosis Risk Factor Assessment Level: Moderate Risk Assessment and Plan Assessment: Atypical Chest pain possible unstable angina History of multivessel coronary artery disease status post stent placement to circumflex artery in June 2018 COPD with mild exacerbation. Acute tracheobronchitis Previous history of smoking quit 4 months ago Hypertension Hyperlipidemia Osteoarthritis Chronic back pain and has a pain stimulator DVT prophylaxis with heparin subcu Plan: Patient will be continued on telemetry monitoring. Troponin 2 negative. Patient was started on Lovenox subcu therapeutic dose. BNP is not elevated. CT angiogram of the chest is negative for any pulmonary embolism. 2-D echoca rdiogram was ordered. Patient will be continued on breathing treatments, antibiotics and steroids. Pulmonary and cardiology is on board. Continue with aspirin Plavix status and metoprolol and statins. Oxygen therapy as needed. Cardiology is planning for stress test versus cardiac catheterization likely tomorrow. Further recommendations based on the clinical course.. Time with Patient: Greater than 30
[2018-10-30] MEDS ORDERED: HEPARIN SODIUM,PORCINE 5,000 UNIT/ML 1 ML VIAL SQ SCH
[2018-10-30] MEDS: methylPREDNISolone SOD SUCCI 125 MG/2 ML VIAL IV SCH ×3 (01:04→11:14)
[2018-10-30] MEDS: ACETAMINOPHEN TAB 325 MG TAB PO PRN ×2 (02:14→20:07)
[2018-10-30] MEDS: MELATONIN 5 MG TABLET PO SCH ×2 (02:49→20:07)
[2018-10-30] MEDS: SODIUM CHLORIDE 0.9% 1,000 ML IV SCH ×2 (02:57→16:53)
[2018-10-30 06:41] LABS: Glucose,Whole Blood 163 mg/dL (75-99)
[2018-10-30 06:46] LABS: Calcium 9.6 mg/dL (8.4-10.2); Potassium 3.9 mmol/L (3.5-5.1)
[2018-10-30] MEDS: IPRATROPIUM-ALBUTEROL 3 ML NEB INHALATION SCH ×4 (06:59→19:42)
[2018-10-30] MEDS: SYMBICORT 160-4.5 MCG INHALER INHALATION SCH ×2 (06:59→19:52)
[2018-10-30] MEDS ORDERED: REGADENOSON 0.4 MG/5 ML SYRINGE IV ONE (07:38)
[2018-10-30] MEDS ORDERED: CAFFEINE CITRATE 60 MG/3 ML VIAL IV PRN (07:38)
[2018-10-30] MEDS ORDERED: AMINOPHYLLINE 500 MG/20 ML VIAL IV PRN (07:38)
[2018-10-30] MEDS ORDERED: ASPIRIN 325 MG TAB PO SCH (09:00)
[2018-10-30] MEDS: INSULIN ASPART (NovoLOG) 100 UNIT/ML VIAL SQ SCH ×4 (10:41→20:07)
--- NOTE | 2018-10-30 10:57 | P.PN ---
Subjective Progress Note Date: 10/30/18 Principal diagnosis: Dyspnea, cough, chest pain This is a 68-year-old white male patient, who sees Dr. Gomez the pulmonary clinic for history of COPD with underlying FEV1 of 1.9 L or 67% of predicted, consistent with stage II COPD, not oxygen dependent, patient is a ex-smoker, previous history of pneumonia, previous history of myocardial infarction, coronary artery disease with previous stenting, hypertension, dyslipidemia. Patient presented to the emergency department on 10/29/2018 with complaints of coughing, increasing shortness of breath, phlegm production, wheezing, left- sided sharp chest pain, which is reproducible to palpation. His chest pain is left-sided, and is at the left rib margin. EKG was negative for any acute ST or T-wave abnormalities, lab work did not reveal any leukocytosis, white blood cell count was 6.3, hemoglobin was 12.1, d-dimer was mildly elevated to 0.95, electrolytes were within normal limits, BUN was 20 creatinine was 1.28. Troponi ns have been negative 2, proBNP was within normal limits at 251, he changes chest was completely, and showed no evidence for pulmonary embolism, bibasilar atelectasis was noted, pleural based infiltrate in the right lower lobe appeared to be unchanged and was compared to prior CT angios on 08/29/2018, hilar structures were negative for any evidence of mass, no hilar lymphadenopathy. This masslike consolidation in the right lower lobe is being followed by Dr. Gomez in the outpatient setting with follow-up CT chest. he had previously been given an option of CT-guided needle biopsy, bronchoscopy or observation and patient had opted for observation. No fever or chills, currently on suppleme ntal oxygen at 2 L and his pulse ox is 92%, hemodynamically stable. He is being evaluated by cardiology, his most recent echocardiogram in June 2018 showed preserved left ventricle systolic function with an EF of 50-55%. Repeat echocardiogram is pending at this time. We are asked to evaluate the patient for his dyspnea, and history of COPD, CT chest did not show any clear evidence of pulmonary infiltrate On 10/30/2018 patient seen in follow-up in the observation unit, he is awake and alert, in no acute distress, other than having a headache this morning, no complaints of chest pain, she is on room air, pulse ox is 97%. No Fever or chills, lung sounds reveal coarse rhonchi, patient remains on Zithromax and Rocephin for tracheobronchitis and COPD exacerbation, 3 sets of troponins were negative, proBNP was within normal limits. he is scheduled for stress test today Objective - Vital Signs Vital signs: Vital Signs Temp 97.5 F L 10/30/18 07:25 Pulse 84 10/30/18 07:25 Resp 18 10/30/18 07:25 BP 109/60 10/30/18 07:25 Pulse Ox 97 10/30/18 07:25 Intake & Output 10/29/18 10/30/18 10/30/18 18:59 06:59 18:59 Intake Total 444 Balance 444 Weight 77.111 kg Intake: Oral 444 Other: Voiding Method Toilet Toilet # Voids 1 2 - Exam GENERAL EXAM: Alert, pleasant, 68-year-old white male, on room air with pulse ox of 97%, no acute distress HEAD: Normocephalic/atraumatic. EYES: Normal reaction of pupils, equal size. Conjunctiva pink, sclera white. NOSE: Clear with pink turbinates. THROAT: No erythema or exudates. NECK: No masses, no JVD, no thyroid enlargement, no adenopathy. CHEST: No chest wall deformity. Symmetrical expansion. Left-sided chest wall tenderness at the left rib margin, with the sharp pain, and patient has reproducible tenderness with palpation LUNGS: Equal air entry with bibasilar crackles CVS: Regular rate and rhythm, normal S1 and S2, no gallops, no murmurs, no rubs ABDOMEN: Soft, nontender. No hepatosplenomegaly, normal bowel sounds, no guarding or rigidity. EXTREMITIES: No clubbing, no edema, no cyanosis, 2+ pulses and upper and lower extremities. MUSCULOSKELETAL: Muscle strength and tone normal. SPINE: No scoliosis or deformity SKIN: No rashes CENTRAL NERVOUS SYSTEM: Alert and oriented -3. No focal deficits, tone is normal in all 4 extremities. PSYCHIATRIC: Alert and oriented -3. Appropriate affect. Intact judgment and insight. - Labs CBC & Chem 7: 10/29/18 08:44 10/30/18 06:00 Labs: Abnormal Lab Results - Last 24 Hours (Table) 04/23/19 04/23/19 Range/Units 06:00 06:36 Carbon Dioxide 20 L (22-30) mmol/L BUN 24 H (9-20) mg/dL Glucose 147 H (74-99) mg/dL POC Glucose (mg/dL) 163 H (75-99) mg/dL Assessment and Plan Plan: Assessment: #1. Dyspnea, cough, congestion, related to acute exacerbation of COPD and tracheobronchitis #2. Left-sided reproducible chest pain, EKG is without any acute ischemic changes, troponins are negative 2, being followed by cardiology #3. Stage II COPD, with FEV1 of 1.9 L or 67% of predicted, oxygen dependent at baseline #4. Former smoker, quit smoking in June 2018, carries [id number] smoking history #5. Coronary artery disease, with history of previous stenting in the setting of acute myocardial infarction in June 2018 #6. Previous episode of pneumonia #7. 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 Osteoarthritis #9. Chronic back pain, patient has a pain stimulator Plan: Continue with nebulized bronchodilators, continue with Zithromax and Rocephin, is complaining of mainly a headache today, no worsening dyspnea, lung sounds are still coarse, but vital signs are stable, no fever or chills, will continue with current medical treatment, await the results of the stress test. I performed a history & physical examination of the patient and discussed their management with my nurse practitioner, Gretta Bass. I reviewed the nurse practitioner's note and agree with the documented findings and plan of care. Lung sounds are positive for scattered rhonchi, and bibasilar crackles throughout the lung pruett. The findings and the impression was discussed with the patient. I attest to the documentation by the nurse practitioner. Time with Patient: Less than 30
[2018-10-30] MEDS: PANTOPRAZOLE 40 MG/10 ML VIAL IVP SCH (11:15)
[2018-10-30] MEDS: METOPROLOL TARTRATE 25 MG TAB PO SCH ×2 (11:15→20:07)
[2018-10-30] MEDS: ISOSORBIDE MONONITRATE ER 30 MG TAB.ER.24H PO SCH (11:15)
[2018-10-30] MEDS: ASPIRIN 81 MG PO SCH (11:15)
[2018-10-30] MEDS: AZITHROMYCIN 500 MG TAB PO SCH (11:15)
[2018-10-30] MEDS: CLOPIDOGREL 75 MG TAB PO SCH (11:15)
[2018-10-30] MEDS: ENOXAPARIN 80 MG/0.8 ML SYRINGE SQ SCH ×2 (11:16→20:07)
--- NOTE | 2018-10-30 11:21 | NM ---
EXAMINATION TYPE: NM stress lexiscan cardiolite DATE OF EXAM: 10/30/2018 COMPARISON: NONE HISTORY: Precordial chest pain and abnormal EKG TECHNIQUE: After the intravenous administration of 9.99 mCi Tc 99m Sestamibi - Cardiolite resting SP ECT images acquired 45 minutes post injection. The patient received 0.4mg Lexiscan, 26.0 mCi Tc 99m Sestamibi - Stress images obtained [address] injection FINDINGS: Review of stress and rest SPECT images demonstrates small areas of reversible ischemia involving the anteroseptal wall and anterior wall. Gated analysis shows normal wall motion with an estimated left v entricular ejection fraction of 44% . IMPRESSION: Small areas of reversible ischemia as noted.
[2018-10-30 11:51] LABS: Glucose,Whole Blood 161 mg/dL (75-99)
--- NOTE | 2018-10-30 12:22 | ECHOF ---
Referral Reason:LV function, CP MEASUREMENTS -------- HEIGHT: 165.1 cm WEIGHT: 77.1 kg BP: FINDINGS -------- Limited Study for LV Functionn. Overall left ventricular systolic function is low-normal with, an EF between 50 - 55 %. Echo free space represents a pericardial fat pad. CONCLUSIONS -------- 1. Limited Study for LV Functionn. 2. Overall left ventricular systolic function is low-normal with, an EF between 50 - 55 %. 3. Echo free space represents a pericardial fat pad. HELP DESK SUPPORT SPECIALIST: Lexy Garcia RDCS
[2018-10-30] MEDS ORDERED: SODIUM CHLORIDE 0.9% 1,000 ML in EMPTY BAG 1 BAG IV ONE (13:42)
--- NOTE | 2018-10-30 13:43 | P.PN ---
Subjective This is a pleasant 68-year-old male past medical history significant for coronary artery disease with multivessel disease status post stent placement to the mid circumflex artery in June 2018 in the setting of a non-ST elevated myocardial infarction. He also has hypertension, dyslipidemia, COPD and former nicotine dependence. He quit smoking in June. He follows in the office with Dr. Bolivar. Mr. Thomas was seen and examined earlier this morning and again this afternoon. He underwent a Lexiscan stress test that showed some areas of reversibililty in the anterior and anteroseptal regions. He continues to feel overall not good. He states he continues to have intermittent chest pains associated with nausea and some vomiting of his lunch. Blood pressure 117/66 heart rate 86 afebrile maintaining oxygen saturation on room air. Laboratory data reviewed, sodium 137, potassium 3.9, creatinine 1.2, GFR 62, cardiac enzymes negative 3, LDL 53. Limited echocardiogram reveals preserved LV systolic function with ejection fraction 55%. GENERAL: This is a 68-year-old male in no apparent distress at the time of my examination. HEENT: Head is atraumatic, normocephalic. Pupils are equal, round. Sclerae anicteric. Conjunctivae are clear. Mucous membranes of the mouth are moist. Neck is supple. There is no jugular venous distention. No carotid bruit is heard. LUNGS: Scattered rhonchi, no wheezes or rales. No chest wall tenderness is noted on palpation or with deep breathing. HEART: Regular rate and rhythm without murmurs, rubs or gallops. S1 and S2 heard. EXTREMITIES: No evidence of peripheral edema and no calf tenderness noted. ASSESSMENT Unstable angina, known to have underlying multi-vessel CAD. Was recently started on imdur in September but has not been taking. He was unaware there was a new prescription. Multi-vessel coronary artery disease s/p recent stent placement to circumflex artery June 2018 Hypertension Dyslipidemia COPD Former nicotine dependence PLAN Recommend proceeding with coronary angiography to further assess for progression of coronary artery disease or possible in-stent restenosis. I have discussed the risks, benefits and alternative therapies for the above- mentioned procedure and for both sedation/analgesia as well as necessary blood product administration, if indicated, as they pertain to this patient. The patient has indicated understanding and acceptance of the risks and procedures discussed. Questions have been answered appropriately and he is agreeable to mo ve forward with the above-stated procedure. Further recommendations to follow based upon clinical course. Nurse Practitioner note has been reviewed, I agree with a documented findings and plan of care. Patient was seen and examined. Objective - Vital Signs Vital signs: Vital Signs Temp 97.8 F 10/30/18 11:35 Pulse 86 10/30/18 11:35 Resp 18 10/30/18 11:35 BP 117/66 10/30/18 11:35 Pulse Ox 94 L 10/30/18 11:35 Intake & Output 10/29/18 10/30/18 10/30/18 18:59 06:59 18:59 Intake Total 444 200 Balance 444 200 Weight 77.111 kg Intake: Oral 444 200 Other: Voiding Method Toilet Toilet Toilet # Voids 1 2 1 # Bowel Movements 1 - Labs CBC & Chem 7: 10/29/18 08:44 10/30/18 06:00 Labs: Abnormal Lab Results - Last 24 Hours (Table) 10/30/18 10/30/18 10/30/18 Range/Units 06:00 06:36 11:48 Carbon Dioxide 20 L (22-30) mmol/L BUN 24 H (9-20) mg/dL Glucose 147 H (74-99) mg/dL POC Glucose (mg/dL) 163 H 161 H (75-99) mg/dL
--- NOTE | 2018-10-30 14:10 | EST ---
EXERCISE STRESS AGE: 68 SEX: M HT: 66" WT: 170 PROTOCOL: Lexiscan Cardiolite Stress Test HEART RATE REST: 88 BLOOD PRESSURE REST: 130/60 MAXIMUM HEART RATE ACHIEVED: 101 MAXIMUM BLOOD PRESSURE: 109/62 85% MPHR: 128 100% MPHR: 151 INDICATIONS: Chest pain. CLINICAL INFORMATION: Baseline EKG revealed a sinus mechanism with minor nonspecific ST abnormality. With Lexiscan administration, heart rate changed from 88 to 101 beats per minute, blood pressure changed from 130/60 to 109/62. EKG remained unremarkable with minor resting EKG changes. Patient did not have any clear-cut angina but had transient shortness of breath. By EKG criteria is unremarkable Lexiscan stress test. The nuclear scan results which are more pertinent will be reported by the radiologist. RENETTA / NERISN: [id number] /
--- NOTE | 2018-10-30 14:45 | P.PN ---
Subjective 68-year-old with history of coronary artery disease and previous stents came in with chest pain and had a stress test which is positive patient will undergo cardiac catheterization tomorrow. Patient is also being treated for COPD exacerbation patient doesn't have any wheeze currently to bilateral lung pruett will be switched to oral prednisone. Patient does not appear to have pneumonia Rocephin at this continue continue with azithromycin. Constitutional: Denied any fatigue denied any fever. Cardio vascular: denied any chest pain, palpitations Gastrointestinal denied any nausea vomiting Pulmonary: Denied any shortness of breath cough Neurologic denied any new focal deficits All inpatient medications were reviewed and appropriate changes in these medications as dictated in the interval history and assessment and plan. Objective - Vital Signs Vital signs: Vital Signs Temp 97.8 F 10/30/18 11:35 Pulse 86 10/30/18 11:35 Resp 18 10/30/18 11:35 BP 117/66 10/30/18 11:35 Pulse Ox 94 L 10/30/18 11:35 Intake & Output 10/29/18 10/30/18 10/30/18 18:59 06:59 18:59 Intake Total 444 200 Balance 444 200 Weight 77.111 kg Intake: Oral 444 200 Other: Voiding Method Toilet Toilet Toilet # Voids 1 2 1 # Bowel Movements 1 - Exam PHYSICAL EXAMINATION: GENERAL: The patient is alert and oriented x3, not in any acute distress. Well developed, well nourished. HEENT: Pupils are round and equally reacting to light. EOMI. No scleral icterus. No conjunctival pallor. Normocephalic, atraumatic. No pharyngeal erythema. No thyromegaly. CARDIOVASCULAR: S1 and S2 present. No murmurs, rubs, or gallops. PULMONARY: Chest is clear to auscultation, no wheezing or crackles. ABDOMEN: Soft, nontender, nondistended, normoactive bowel sounds. No palpable organomegaly. MUSCULOSKELETAL: No joint swelling or deformity. EXTREMITIES: No cyanosis, clubbing, or pedal edema. NEUROLOGICAL: Gross neurological examination did not reveal any focal deficits. SKIN: No rashes. - Labs CBC & Chem 7: 10/29/18 08:44 10/30/18 06:00 Labs: Abnormal Lab Results - Last 24 Hours (Table) 10/30/18 10/30/18 10/30/18 Range/Units 06:00 06:36 11:48 Carbon Dioxide 20 L (22-30) mmol/L BUN 24 H (9-20) mg/dL Glucose 147 H (74-99) mg/dL POC Glucose (mg/dL) 163 H 161 H (75-99) mg/dL Assessment and Plan Plan: -Chest pain possibility of unstable angina with positive stress test patient will undergo cardiac catheterization tomorrow -History of coronary disease with stents to circumflex June 2018 continue with dual antiplatelet therapy beta rudi and statin -COPD with mild acute exacerbation patient will be switched to oral steroids and he is to azithromycin no evidence of pneumonia Rocephin will be discontinued -Hypertension next and-hyperlipidemia -Osteoarthritis -Chronic low back pain with the pain started in place -Due to prophylaxis with subcutaneous heparin
[2018-10-30 16:46] LABS: Glucose,Whole Blood 167 mg/dL (75-99)
[2018-10-30] MEDS: HYDROcodone/APAP 10-325MG 1 EACH TAB PO PRN (16:58)
[2018-10-30 19:55] LABS: Glucose,Whole Blood 133 mg/dL (75-99)
[2018-10-30] MEDS: ATORVASTATIN 80 MG TAB PO SCH (20:07)
[2018-10-31] MEDS: SODIUM CHLORIDE 0.9% 1,000 ML IV SCH ×2 (04:35→20:01)
[2018-10-31] MEDS: ISOSORBIDE MONONITRATE ER 30 MG TAB.ER.24H PO SCH (05:07)
[2018-10-31] MEDS: METOPROLOL TARTRATE 25 MG TAB PO SCH ×2 (05:07→20:03)
[2018-10-31] MEDS: predniSONE 20 MG TAB PO SCH (05:07)
[2018-10-31] MEDS: ATORVASTATIN 80 MG TAB PO SCH (05:07)
[2018-10-31] MEDS: CLOPIDOGREL 75 MG TAB PO SCH (05:07)
[2018-10-31] MEDS: PANTOPRAZOLE 40 MG TABLET PO SCH (05:07)
[2018-10-31] MEDS: AZITHROMYCIN 500 MG TAB PO SCH (05:07)
[2018-10-31] MEDS: ASPIRIN 81 MG PO SCH (05:07)
[2018-10-31 06:53] LABS: Glucose,Whole Blood 109 mg/dL (75-99)
[2018-10-31] MEDS: SYMBICORT 160-4.5 MCG INHALER INHALATION SCH ×2 (07:25→19:54)
[2018-10-31] MEDS: IPRATROPIUM-ALBUTEROL 3 ML NEB INHALATION SCH ×4 (07:25→19:54)
[2018-10-31] MEDS: INSULIN ASPART (NovoLOG) 100 UNIT/ML VIAL SQ SCH ×2 (08:41→11:58)
--- NOTE | 2018-10-31 09:45 | P.PN ---
Progress Note - Text Pt is seen resting comfortably in bed. He is scheduled for cardiac catheterization this afternoon with Dr. Bolivar. Questions have been answered appropriately.
[2018-10-31] MEDS: ENOXAPARIN 80 MG/0.8 ML SYRINGE SQ SCH (09:58)
[2018-10-31 11:56] LABS: Glucose,Whole Blood 131 mg/dL (75-99)
--- NOTE | 2018-10-31 13:23 | P.PN ---
Subjective Progress Note Date: 10/31/18 Principal diagnosis: Dyspnea, cough, chest pain This is a 68-year-old white male patient, who sees Dr. Gomez the pulmonary clinic for history of COPD with underlying FEV1 of 1.9 L or 67% of predicted, consistent with stage II COPD, not oxygen dependent, patient is a ex-smoker, previous history of pneumonia, previous history of myocardial infarction, coronary artery disease with previous stenting, hypertension, dyslipidemia. Patient presented to the emergency department on 10/29/2018 with complaints of coughing, increasing shortness of breath, phlegm production, wheezing, left- sided sharp chest pain, which is reproducible to palpation. His chest pain is left-sided, and is at the left rib margin. EKG was negative for any acute ST or T-wave abnormalities, lab work did not reveal any leukocytosis, white blood cell count was 6.3, hemoglobin was 12.1, d-dimer was mildly elevated to 0.95, electrolytes were within normal limits, BUN was 20 creatinine was 1.28. Troponi ns have been negative 2, proBNP was within normal limits at 251, he changes chest was completely, and showed no evidence for pulmonary embolism, bibasilar atelectasis was noted, pleural based infiltrate in the right lower lobe appeared to be unchanged and was compared to prior CT angios on 08/29/2018, hilar structures were negative for any evidence of mass, no hilar lymphadenopathy. This masslike consolidation in the right lower lobe is being followed by Dr. Gomez in the outpatient setting with follow-up CT chest. he had previously been given an option of CT-guided needle biopsy, bronchoscopy or observation and patient had opted for observation. No fever or chills, currently on suppleme ntal oxygen at 2 L and his pulse ox is 92%, hemodynamically stable. He is being evaluated by cardiology, his most recent echocardiogram in June 2018 showed preserved left ventricle systolic function with an EF of 50-55%. Repeat echocardiogram is pending at this time. We are asked to evaluate the patient for his dyspnea, and history of COPD, CT chest did not show any clear evidence of pulmonary infiltrate On 10/30/2018 patient seen in follow-up in the observation unit, he is awake and alert, in no acute distress, other than having a headache this morning, no complaints of chest pain, she is on room air, pulse ox is 97%. No Fever or chills, lung sounds reveal coarse rhonchi, patient remains on Zithromax and Rocephin for tracheobronchitis and COPD exacerbation, 3 sets of troponins were negative, proBNP was within normal limits. he is scheduled for stress test today The patient is seen today able 2018 in follow-up in the observation unit. He is currently resting quite comfortably in bed, awake and alert in no acute distress. No further chest pain. No worsening shortness of breath. Maintaining good O2 saturations in the upper 90s on 2 L/m per nasal cannula. He's been afebrile. Hemodynamically stable. His Lexiscan stress test revealed evidence of small area of ischemia. The plan is for cardiac catheterization later this afternoon. Objective - Vital Signs Vital signs: Vital Signs Temp 97.4 F L 10/31/18 12:00 Pulse 67 10/31/18 12:00 Resp 18 10/31/18 12:00 BP 127/71 10/31/18 12:00 Pulse Ox 96 10/31/18 12:00 Intake & Output 10/30/18 10/31/18 10/31/18 18:59 06:59 18:59 Intake Total 436 700 Balance 436 700 Intake: IV 700 Sodium Chloride 0.9% 1, 700 000 ml In Empty Bag 1 bag @ 1 ML/KG/HR 77.111 mls/ hr IV .[id number] ONE Rx#: [id number] Oral 436 Other: Voiding Method Toilet Toilet Toilet # Voids 1 2 1 # Bowel Movements 2 - Exam GENERAL EXAM: Alert, pleasant 68-year-old gentleman, comfortable in no apparent distress. HEAD: Normocephalic. EYES: Normal reaction of pupils, equal size. NOSE: Clear with pink turbinates. THROAT: No erythema or exudates. NECK: No masses, no JVD. CHEST: No chest wall deformity. LUNGS: Equal air entry with no crackles, wheeze, rhonchi or dullness. CVS: S1 and S2 normal with no audible murmur, regular rhythm. ABDOMEN: No hepatosplenomegaly, normal bowel sounds, no guarding or rigidity. SPINE: No scoliosis or deformity SKIN: No rashes CENTRAL NERVOUS SYSTEM: No focal deficits, tone is normal in all 4 extremities. EXTREMITIES: There is no peripheral edema. No clubbing, no cyanosis. Peripheral pulses are intact. - Labs CBC & Chem 7: 10/29/18 08:44 10/30/18 06:00 Labs: Abnormal Lab Results - Last 24 Hours (Table) 10/30/18 10/30/18 10/31/18 Range/Units 16:41 19:55 06:51 POC Glucose (mg/dL) 167 H 133 H 109 H (75-99) mg/dL 10/31/18 Range/Units 11:55 POC Glucose (mg/dL) 131 H (75-99) mg/dL Assessment and Plan Assessment: Assessment: #1. Dyspnea, cough, congestion, related to acute exacerbation of COPD and tracheobronchitis #2. Left-sided reproducible chest pain, EKG is without any acute ischemic changes, troponins are negative 2. Small area of ischemia on stress test. Cardiac catheterization later today. #3. Stage II COPD, with FEV1 of 1.9 L or 67% of predicted, oxygen dependent at baseline #4. Former smoker, quit smoking in June 2018, carries [id number] smoking history #5. Coronary artery disease, with history of previous stenting in the setting of acute myocardial infarction in June 2018 #6. Previous episode of pneumonia #7. 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 Osteoarthritis #9. Chronic back pain, patient has a pain stimulator Plan: The patient was seen and evaluated by Dr. Almanza. He is currently stable from the pulmonary standpoint. Stress test was positive for small areas of ischemia. The plan is for cardiac catheterization later today. We'll continue with current treatment plan. We'll continue to follow. I, the cosigning physician, performed a history & physical examination of the patient. Lungs sounds are clear. Maintaining good O2 saturations in the 90s on 2 L/m per nasal cannula. I discussed the assessment and plan of care with my nurse practitioner, Elise Guerra. I attest to the above note as dictated by her.
[2018-10-31] MEDS ORDERED: fentaNYL (PF) 50 MCG/ML 2 ML AMP IVP ONE (14:26)
[2018-10-31] MEDS ORDERED: LIDOCAINE 1% INJ 10MG/ML (20 ML MDV) SQ ONE (14:30)
[2018-10-31] MEDS ORDERED: IV FLUID CONTINUATION 700 ML IV ONE (14:30)
[2018-10-31] MEDS ORDERED: VERAPAMIL SYRINGE (5 MG/10 ML) INTRAARTER ONE (14:32)
[2018-10-31] MEDS: MIDAZOLAM (PF) 2 MG/2 ML VIAL IV ONE ×2 (14:37→15:29)
[2018-10-31] MEDS ORDERED: BIVALIRUDIN BOLUS 250 MG/50 ML IV ONE (14:48)
[2018-10-31] MEDS ORDERED: BIVALIRUDIN 250 MG in SODIUM CHLORIDE 0.9% 50 ML IV ONE (14:49)
[2018-10-31] MEDS ORDERED: IOPAMIDOL-370 100ML BTL INJ ONE ×4 (14:53→15:40)
[2018-10-31] MEDS ORDERED: NITROGLYCERIN 1000MCG/10ML SYRINGE INTRACORON ONE (14:58)
[2018-10-31] MEDS ORDERED: ATROPINE SULFATE 0.1 MG/ML 10ML SYRINGE IV PRN (15:40)
[2018-10-31] MEDS ORDERED: MAG HYDROX/AL HYDROX/SIMETH 30 ML CUP PO PRN (15:40)
[2018-10-31] MEDS ORDERED: ZOLPIDEM 5 MG TAB PO PRN (15:40)
[2018-10-31] MEDS ORDERED: NITROGLYCERIN SL TABS 0.4 MG TAB SUBLINGUAL PRN (15:40)
[2018-10-31] MEDS ORDERED: RX INFO: IV CONTRAST WAS GIVEN 1 EACH MISC MISCELLANE PRN (15:40)
[2018-10-31] MEDS ORDERED: SODIUM CHLORIDE 0.9% 1,000 ML IV SCH (15:45)
[2018-10-31] MEDS: HYDROcodone/APAP 10-325MG 1 EACH TAB PO PRN ×2 (15:57→21:56)
--- NOTE | 2018-10-31 16:26 | P.PN ---
Subjective 68-year-old with history of coronary artery disease and previous stents came in with chest pain and had a stress test which is positive patient will undergo cardiac catheterization tomorrow. Patient is also being treated for COPD exacerbation patient doesn't have any wheeze currently to bilateral lung pruett will be switched to oral prednisone. Patient does not appear to have pneumonia Rocephin at this continue continue with azithromycin. 10/31/2018 patient will undergo cardiac catheterization today still having quite a bit of nausea may be related to gastritis from a systemic steroids or microinfarction itself Constitutional: Denied any fatigue denied any fever. Cardio vascular: denied any chest pain, palpitations Gastrointestinal as mentioned above Pulmonary: Denied any shortness of breath cough Neurologic denied any new focal deficits All inpatient medications were reviewed and appropriate changes in these medications as dictated in the interval history and assessment and plan. Objective - Vital Signs Vital signs: Vital Signs Temp 97.4 F L 10/31/18 12:00 Pulse 67 10/31/18 12:00 Resp 18 10/31/18 12:00 BP 127/71 10/31/18 12:00 Pulse Ox 96 10/31/18 12:00 Intake & Output 10/30/18 10/31/18 10/31/18 18:59 06:59 18:59 Intake Total 436 700 234 Balance 436 700 234 Intake: IV 700 234 Sodium Chloride 0.9% 1, 700 000 ml In Empty Bag 1 bag @ 1 ML/KG/HR 77.111 mls/ hr IV .[id number] ONE Rx#: [id number] Oral 436 Other: Voiding Method Toilet Toilet Toilet # Voids 1 2 1 # Bowel Movements 2 - Exam PHYSICAL EXAMINATION: GENERAL: The patient is alert and oriented x3, not in any acute distress. Well developed, well nourished. HEENT: Pupils are round and equally reacting to light. EOMI. No scleral icterus. No conjunctival pallor. Normocephalic, atraumatic. No pharyngeal erythema. No thyromegaly. CARDIOVASCULAR: S1 and S2 present. No murmurs, rubs, or gallops. PULMONARY: Chest is clear to auscultation, no wheezing or crackles. ABDOMEN: Soft, nontender, nondistended, normoactive bowel sounds. No palpable organomegaly. MUSCULOSKELETAL: No joint swelling or deformity. EXTREMITIES: No cyanosis, clubbing, or pedal edema. NEUROLOGICAL: Gross neurological examination did not reveal any focal deficits. SKIN: No rashes. - Labs CBC & Chem 7: 10/29/18 08:44 10/30/18 06:00 Labs: Abnormal Lab Results - Last 24 Hours (Table) 10/30/18 10/30/18 10/31/18 Range/Units 16:41 19:55 06:51 POC Glucose (mg/dL) 167 H 133 H 109 H (75-99) mg/dL 10/31/18 Range/Units 11:55 POC Glucose (mg/dL) 131 H (75-99) mg/dL Assessment and Plan Plan: -Chest pain possibility of unstable angina with positive stress test patient will undergo cardiac catheterization today -History of coronary disease with stents to circumflex June 2018 continue with dual antiplatelet therapy beta rudi and statin -COPD with mild acute exacerbation patient will be switched to oral steroids and he is to azithromycin no evidence of pneumonia Rocephin will be discontinued -Hypertension next and-hyperlipidemia -Osteoarthritis -Chronic low back pain with the pain started in place -Due to prophylaxis with subcutaneous heparin
[2018-10-31] MEDS: ACETAMINOPHEN TAB 325 MG TAB PO PRN (17:07)
--- NOTE | 2018-10-31 17:08 | CC ---
CARDIAC CATHETERIZATION REPORT HISTORY: Mr. Thomas is a 68-year-old male with known history of coronary artery disease, status post stenting of the left circumflex in June 2018, chronically occluded right coronary artery, who presented with symptoms of chest discomfort, but no enzymatic changes. He underwent myocardial perfusion imaging that revealed evidence of inducible ischemia. In view of that, recommendation was made regarding cardiac catheterization. The procedure, as well as risks and complications were discussed with the patient who is in full understanding and agreement. PROCEDURE: Patient was brought to medical laboratory specialist in a fasting semisedated state after receiving fentanyl and Benadryl and achieving moderate conscious sedated state. Using Xylocaine anesthesia and Seldinger technique, a 6-Vietnamese sheath was introduced in the right radial artery. Selective right and left coronary angiography were performed using 5- Vietnamese 3 and half bend right and left Yakelin' catheter and initially a 6-Vietnamese XB 3.5 guiding catheter that was exchanged to a 6-Vietnamese EBU 3.75 guiding catheter. Images of the coronary arteries including hemiaxial views were obtained. Following that, angioplasty and stenting was performed. FINDINGS: LEFT MAIN: This is a short size vessel bifurcating in to left circumflex, left anterior descending artery, left main coronary artery has no evidence of high-grade stenosis. LEFT ANTERIOR DESCENDING ARTERY: This is a large-sized vessel reaching towards the apex with a wraparound the apex segment giving rise to a large diagonal branch. Proximally at the takeoff of the diagonal branch, there is a 30% to 40% plaque. The first diagonal branch has a 99% stenosis in the mid segment. The rest of the vessel has no high-grade stenosis. LEFT CIRCUMFLEX: This vessel is nondominant, giving rise to 2 obtuse marginal branches. The first one is small in caliber, has 80 to 90% proximal stenosis. The stented segment in the mid left circumflex is patent with no evidence of restenosis. RIGHT CORONARY ARTERY: This vessel is totally occluded proximally with no antegrade flow. COLLATERALS: There are collaterals from the left coronary system toward the right PDA. LEFT VENTRICULOGRAM: Left ventriculogram was not performed. IMPRESSION: 1. Patent stent to the left circumflex with obstructive disease in the first obtuse marginal branch. 2. Mild disease in the proximal left anterior descending coronary artery with significant disease in the first diagonal branch. 3. Chronically occluded right coronary artery with collaterals from the left system. RECOMMENDATIONS: In view of findings and anatomy, I recommend proceeding with angioplasty and stenting of the diagonal branch. The procedure as well as risks and complications were discussed with the patient who is in full understanding and agreement. MMODL / IJN: [id number] /
--- NOTE | 2018-10-31 17:20 | PTCA ---
PERCUTANEOUSTRANS CORORONARY ANGIOGRAPHY HISTORY: Mr. Thomas is a 68-year-old male with a known history of coronary artery disease who presented with symptoms of chest discomfort and abnormal myocardial perfusion, underwent cardiac catheterization, was found to have critical stenosis involving the first diagonal branch. In view of that, recommendation was made regarding angioplasty and stenting. The procedure as well as risks and complications were discussed with the patient who is in full understanding and agreement. PROCEDURE: Using the 6-Malay 3.75 EBU guiding catheter a 0.014 balanced medium weight J-wire was advanced across the catheter and positioned in the distal LAD. Subsequently another 0.014 balanced medium weight J-wire was advanced and positioned in the diagonal branch. Subsequently attempt to advance a 2.25 x 12 mm Trek balloon were unsuccessful. That balloon was removed and a 2.0 x 8 mm Trek balloon was advanced and multiple inflations maximum of 10 atmospheres were done. Following that the balloon was removed and an attempt to advance the 2.25 x 12 mm balloon were unsuccessful. That balloon was removed. The wires were removed and 0.014 whisper J-wire was advanced and positioned in the diagonal branch. Another 0.014 whisper J-wire was advanced next to the first one and positioned in the kailey fashion subsequently, the 2.0 x 8 mm balloon was advanced and 2 inflations at 8 atmospheres were done. Following that, the balloon was removed and a 2.25 x 12 mm Trek balloon was advanced and one inflation at 8 atmospheres was done. Following that, a 2.25 x 50 mm Xience Trek balloon was advanced and deployed, it was dilated at 14 atmospheres. After the last inflation, after appropriate wait, the balloon and the guidewire were withdrawn back in the guiding catheter. Images were obtained, repeated. Those images revealed stable successful stenting. At that point, the guiding catheter, the balloon and the guidewire were removed. The sheath was removed. Hemostasis was obtained with deployment of a TR band. There was no immediate complication. Patient was returned to his room in stable condition. Of note, the patient received Angiomax per protocol and was continued on clopidogrel. He had chest discomfort with the inflation that improved at the end procedure, but no EKG changes. RESULTS: Successful stenting of the first diagonal branch with reduction of stenosis from 99% to 0%. RECOMMENDATIONS: Patient will be continued on aspirin, Plavix, beta rudi, and statin. The importance of dual antiplatelet treatment were discussed with the patient and his family who are in full understanding and agreement. Duration of procedure is 68 minutes. MMGLORIAL / NERISN: [id number] /
[2018-10-31] MEDS: MELATONIN 5 MG TABLET PO SCH (20:02)
[2018-10-31] MEDS ORDERED: HYDROmorphone 1 MG/ML 1 ML SYRINGE IVP STA (20:22)
[2018-10-31] MEDS: HYDROmorphone 0.5 MG/0.5 ML SYRINGE IVP PRN (23:37)
[2018-11-01] MEDS ORDERED: RX INFO: IV CONTRAST WAS GIVEN 1 EACH MISC MISCELLANE PRN (00:41)
[2018-11-01 01:26] LABS: Glucose,Whole Blood 148 mg/dL (75-99)
[2018-11-01 01:32] LABS: HCT 26.5 % (39.0-53.0); MCH 29.1 pg (25.0-35.0); MCV 88.1 fL (80.0-100.0); Mean Platelet Volume 8.8; Platelet Count 116 k/uL (150-450); RBC 3.01 m/uL (4.30-5.90); RDW 15.1 % (11.5-15.5); WBC 6.7 k/uL (3.8-10.6)
[2018-11-01 01:36] LABS: HGB 8.8 gm/dL (13.0-17.5)
[2018-11-01 01:45] LABS: Calcium 8.1 mg/dL (8.4-10.2); Potassium 3.5 mmol/L (3.5-5.1)
[2018-11-01] MEDS: NOREPINEPHRINE 4 MG in SODIUM CHLORIDE 0.9% 250 ML IV SCH ×2 (02:00→22:11)
--- NOTE | 2018-11-01 02:17 | CT ---
ADDENDUM - Added by Lubna Moore M.D. on 11/01/2018 2:53 AM (-07:00) Discussed findings with Pt's RN Paulette Discussed findings with Dr. Wilson. Given procedure today and patient's symptoms, worrisome for aortic dissection involving the aortic root/coronary sinus region. As above, no obvious aortic dissection flap. No obvious contrast extravasation. On the precontrast images, query slight thin hyperdensity rim around the aortic root, although limited evaluation on this study. Given clinical concern and new pericardial effusion that is likely hemopericardium, consider type A intramural hematoma at the aortic root level. The visualized great vessels appear opacified although somewhat obscured by contrast. Recommend follow-up/further evaluation. EXAM: CT Angiography Chest Without And With Intravenous Contrast CLINICAL HISTORY: ITS.REASON CT Reason: Chest pain additional history from RN. cardiac stent in OM1/2 today. radial approach. chest pain, diaphoretic, hgb drop since 10/29. Rule out dissection. TECHNIQUE: Axial computed tomographic angiography images of the chest without and with intravenous contrast using pulmonary embolism protocol. CT chest, abdomen and pelvis CTDI is 10.7, 18.8, 14 1 mGy and DLP is 2461.5 mGy-cm. This CT exam was performed using one or more of the following dose reduction techniques: automated exposure control, adjustment of the mA and/or kV according to patient size, and/or use of iterative reconstruction technique. 100ML of Isovue 370 was injected MIP reconstructed images were created and reviewed. COMPARISON: 08/29/2018 chest CTA FINDINGS: Pulmonary arteries: Suboptimal opacification for pulmonary embolus evaluation. No central PE. Aorta: No evidence of thoracic aortic aneurysm or dissection. Irregular plaque in the aortic arch and descending thoracic aorta, similar to the prior. Other veins: Gas within the left brachiocephalic vein where there is dense contrast, likely related to injection. Lungs: Centrilobular emphysema. Similar biapical pleural-parenchymal thickening and somewhat nodular density right upper lobe. Decreased nodular densities/nodular airspace disease in the right lower lobe superior segment. Overall mild bibasilar atelectasis. Similar right- sided pleural thickening and right middle lobe consolidation versus round atelectasis. Pleural space: Right-sided pleural thickening as above. No significant effusion. No pneumothorax. Heart: New moderate to large dense pericardial effusion, worrisome for hemopericardium. 11 mm anteriorly and on coronal imaging, up to 2.5 cm along the inferior heart border. No active contrast extravasation visualized. Coronary calcifications. Given history of cardiac stent today, mildly increased density in the left circumflex artery region likely correlates with calcifications and stent. Limited evaluation on this study. No evidence of RV dysfunction. Mediastinum: Mild fat stranding in the AP window region. Appears new since the prior. Bones/joints: Degenerative changes of the thoracic spine. No acute fracture. No dislocation. Soft tissues: Unremarkable. Lymph nodes: Small and mildly enlarged mediastinal nodes. Similar to the prior. Calcified subcarinal node. Tubes, lines and devices: Stable spinal stimulator device. IMPRESSION: 1. New moderate to large dense pericardial effusion, worrisome for hemopericardium. 11 mm anteriorly and on coronal imaging, up to 2.5 cm along the inferior heart border. No active contrast extravasation visualized. 2. Coronary calcifications. Given history of cardiac stent today, mildly increased density in the left circumflex artery region likely correlates with calcifications and stent. Limited evaluation on this study. 3. Mild fat stranding in the AP window region. Appears new since the prior. May relate to nonspecific inflammatory changes. Also could be posttraumatic/post procedural although no obvious aortic leak or vascular injury identified at this time. Consider follow-up study. 4. No evidence of thoracic aortic aneurysm or dissection. Irregular plaque in the aortic arch and descending thoracic aorta, similar to the prior. 5. Small and mildly enlarged mediastinal nodes. Similar to the prior. 6. Similar right-sided pleural thickening and right middle lobe consolidation versus round atelectasis. 7. Centrilobular emphysema. 8. Similar biapical pleural-parenchymal thickening and somewhat nodular density right upper lobe. 9. Decreased nodular densities/nodular airspace disease in the right lower lobe superior segment. EXAM: CT Angiography Abdomen and Pelvis Without And With Intravenous Contrast CLINICAL HISTORY: ITS.REASON CT Reason: Chest pain additional history from RN. cardiac stent in OM1/2 today. radial approach. chest pain, diaphoretic, hgb drop since 10/29. Rule out dissection. TECHNIQUE: Axial computed tomographic angiography images of the abdomen and pelvis without and with intravenous contrast. 100ML of Isovue [address] chest, abdomen and pelvis CTDI is 10.7, 18.8, 14 1 mGy and DLP is 2461. 5 mGy-cm. This CT exam was performed using one or more of the following dose reduction techniques: automated exposure control, adjustment of the mA and/or kV according to patient size, and/or use of iterative reconstruction technique. MIP reconstructed images were created and reviewed. COMPARISON: No relevant prior studies available. FINDINGS: VASCULATURE: Aorta: No abdominal aortic aneurysm or dissection. Mildly ectatic infrarenal abdominal aorta 2.3 cm. Celiac trunk and mesenteric arteries: No acute findings. No occlusion or significant stenosis. Renal arteries: No acute findings. No occlusion or significant stenosis. Iliac arteries: No acute findings. No occlusion or significant stenosis. Lung bases: See CTA chest also today. Mediastinum: Small hiatal hernia. ABDOMEN: Liver: Query periportal edema versus mild intrahepatic biliary dilation. Not seen on the prior. Small subcentimeter liver low-density lesions. Gallbladder and bile ducts: Cholecystectomy. Pancreas: Unremarkable. No ductal dilation. No mass. Spleen: Unremarkable. No splenomegaly. Adrenals: Unremarkable. No mass. Kidneys and ureters: Retained contrast within the kidneys on the first noncontrast set of images likely relates to recent procedure today. Nonobstructing renal calculi versus excreted contrast on the noncontrast and postcontrast imaging. No hydronephrosis. Stomach and bowel: Colonic diverticulosis. No obstruction. No mucosal thickening. PELVIS: Appendix: No findings to suggest acute appendicitis. Bladder: Unremarkable. No stones. No mass. Reproductive: Enlarged prostate. ABDOMEN and PELVIS: Intraperitoneal space: Unremarkable. No significant fluid collection. No free air. Bones/joints: L3-S1 posterior fusion. Degenerative changes of the lumbosacral spine. No acute fracture. No dislocation. Soft tissues: Spinal stimulator generator in the right flank subcutaneous tissues. Lymph nodes: Unremarkable. No enlarged lymph nodes. Tubes, lines and devices: Degenerative changes of the spine. IMPRESSION: 1. No evidence of aortic aneurysm or dissection. Mildly ectatic infrarenal abdominal aorta 2.3 cm. 2. Retained contrast within the kidneys on the first noncontrast set of images likely relates to recent procedure today. Consider follow-up for contrast nephropathy. 3. Other nonacute findings as above. <MYCVCSECTION> [employer] 11/01/18 01:43 Call Doctor Regarding Pericardial Effusion of more than 1cm, called RN Paulette on 11/01 01:42 (-04:00) Per Radiologist 11/01/18 02:19 Call From [facility] [address] wilson 11/01/18 02:[address] [facility] [address]. Flores on 11/01 02:43 (-04:00) 11/01/18 03:05 Verify Receipt with Nurse Verified receipt with Charge Paulette will verify, but unable to look at the moment
[2018-11-01 02:38] LABS: Basophils % (A) 0 %; Eosinophils % (A) 0 %; HCT 28.1 % (39.0-53.0); HGB 9.1 gm/dL (13.0-17.5); Hypochromasia Slight; Lymphocytes # (A) 1.8 k/uL (1.0-4.8); Lymphocytes % (A) 20 %; MCH 29.6 pg (25.0-35.0); MCHC 32.4 g/dL (31.0-37.0); MCV 91.3 fL (80.0-100.0); Mean Platelet Volume 8.5; Monocytes # (A) 0.5 k/uL (0-1.0); Monocytes % (A) 5 %; Neutrophils # (A) 6.4 k/uL (1.3-7.7); Neutrophils % (A) 73 %; Platelet Count 119 k/uL (150-450); RBC 3.07 m/uL (4.30-5.90); WBC 8.8 k/uL (3.8-10.6)
[2018-11-01 02:50] LABS: INR 1.1 (<1.2); Partial Thromboplastin Time 25.8 sec (22.0-30.0); Prothrombin Time 11.8 sec (9.0-12.0)
[2018-11-01 02:51] LABS: Albumin 2.7 g/dL (3.5-5.0); Calcium 7.8 mg/dL (8.4-10.2); Magnesium 1.8 mg/dL (1.6-2.3); Phosphorus 3.4 mg/dL (2.5-4.5); Potassium 3.7 mmol/L (3.5-5.1); Total Bilirubin 0.3 mg/dL (0.2-1.3); Total Protein 4.8 g/dL (6.3-8.2)
--- NOTE | 2018-11-01 03:24 | P.PN ---
Progress Note - Text Called by nurses Paulette from ICU just after midnight stating the patient on 6 E. was hypertensive and dusky blue in the face and the upper extremities, above the nipple line He was transferred to the ICU and a computed tomography scan/angiography of the aorta was performed Patient had had coronary stenting to the first diagonal branch by Dr. Bolivar yesterday afternoon I spoke to her Dr. Bolivar to inform him of the symptoms and signs the patient had experienced prior to the CT angiogram performed CT of the chest was performed. Large amount of pericardial effusion was noted. Thereafter I spoke to the radiologist Dr. Moore She'll be evaluated the films. There was a large pericardial fluid which consisted was hemopericardium based upon the density He was no clear-cut evidence for any aortic dissection or intramural hematoma or aortic rupture within the cusps/aortic cusp within the pericardium There was no hemothorax Spoke to Dr. Bolivar once again to inform him of the results. Thereafter the library technical assistant was called and to reconfirm the pericardial effusion CT surgeon was contacted, Dr. Almeida & Dr. Jameson I spoke to Dr. Jameson and informed him of the results. OR team had already been called in. Matthew Sandhu contacted Patient evaluated. He is alert and oriented. There has been a drop in his hemoglobin by at least 4 g. Clinically he is alert awake oriented his face and neck are dusky but this duskiness does not extend to the nipples or to both his arms He is on aspirin and Plavix Suggest Urgent transfer to the operating room for pericardial window recommended
[2018-11-01] MEDS ORDERED: LIDOCAINE 1% INJ 10MG/ML (20 ML MDV) SQ ONE (04:03)
[2018-11-01] MEDS ORDERED: MIDAZOLAM 2 MG/2 ML VIAL ONE (04:03)
[2018-11-01] MEDS ORDERED: ceFAZolin 1,000 MG VIAL ONE (04:03)
[2018-11-01] MEDS ORDERED: KETAMINE 10 MG/ML 20 ML VIAL ONE (04:03)
[2018-11-01] MEDS ORDERED: ETOMIDATE 2 MG/ML 10 ML VIAL ONE (04:03)
[2018-11-01] MEDS ORDERED: fentaNYL (PF) 50 MCG/ML 2 ML AMP ONE (04:03)
[2018-11-01] MEDS ORDERED: Potassium Replacement Protocol 1 EACH MISC MISCELLANE PRN (04:40)
[2018-11-01] MEDS ORDERED: Magnesium Replacement Protocol 1 EACH MISC MISCELLANE PRN (04:40)
--- NOTE | 2018-11-01 05:10 | P.OP ---
Date of Procedure: 11/01/18 Preoperative Diagnosis: Cardiac Tamponade S/P Coronary Intervention Postoperative Diagnosis: Same Procedure(s) Performed: subxiphoid pericardial window Implants: 32-Chinese pericardial chest tube Anesthesia: MAC, local Surgeon: Tyree Jameson Body Die Maker #1: Zack Mixon Estimated Blood Loss (ml): 10 IV fluids (ml): 500 Urine output (ml): 0 Pathology: other (Pericardial fluid) Condition: critical Disposition: ICU Indications for Procedure: 68-year-old male initially presented with chest pain. Had positive stress test. Underwent elective cardiac catheterization on 424. This revealed a tight stenosis in a high diagonal as well as significant disease in the proximal LAD and complete occlusion of the right coronary artery. Decision was made to proceed with intervention on the diagonal and a stent was deployed. Following the procedure, the patient had severe pain. This did not respond to nitroglycerin. Patient was given Dilaudid. About 11:30 the patient became hypotensive and blue. He underwent CT which demonstrated new pericardial effusion consistent with blood. There was no evidence of dissection. Patient was persistently hypotensive with minimal response to fluids and Levophed. Emergent cardiothoracic consultation was requested and I came to see the patient. At the time of my arrival they were doing an echocardiogram which confirmed the presence of circumferential pericardial fluid. Was decided to take the patient directly to the operating room for pericardial window. Operative Findings: The pericardium was tense. On opening the pericardium there was blood under pressure. A total of 4 50 mL of blood was drained. Following drainage we irrigated until clear. There did not appear to be any ongoing blood loss. Description of Procedure: The patient was brought to the operating room and placed supine on the operating table. The anterior chest and upper abdomen were sterilely prepped and draped. IV sedation was given and 1% lidocaine was used to anesthetize the subxiphoid region. Her xiphoid incision was made on the left side of the xiphoid and continued down on the midline for a distance of about 2 cm below the tip of the xiphoid. Incision was carried down to the midline fascia and this was incised. Dissection was carried up resecting the fascia and muscle from the left lateral border of the xiphoid. Finger dissection was carried up under the xiphoid and the pericardium was identified. Pericardium was incised and 450 mL of blood was aspirated from the pericardial sac. Lidocaine was used to anesthetize the skin lateral to the incision inferiorly and stab incision was made here. 32-Chinese chest tube was tunneled through the right rectus muscle and then brought into the pericardial sac. Was placed along the diaphragm inferiorly. Through this chest tube we irrigated out the pericardial sac until clear. Chest tube was then connected to a Pleur-evac. The midline fascia was closed with [id number] sutures of 0 Vicryl. Subcutaneous tissue was closed with 2-0 Vicryl. The skin was closed with 3-0 Vicryl. Skin glue and a dry sterile dressing were applied. Patient was transferred back to ICU in stable condition. It should be noted that immediately on decompressing the pericardial sac the patient's blood pressure went up and his cyanosis resolved.
[2018-11-01] MEDS: MAGNESIUM SULFATE-D5W PMX 1 GM in DEXTROSE/WATER 1 100ML.BAG IVPB SCH ×2 (05:49→06:49)
[2018-11-01] MEDS: HYDROmorphone 0.5 MG/0.5 ML SYRINGE IVP PRN ×2 (05:50→20:30)
[2018-11-01] MEDS: POTASSIUM CHLORIDE 10 MEQ in WATER FOR INJECTION 1 100ML.BAG IVPB SCH ×2 (05:51→07:16)
[2018-11-01 05:52] LABS: HCT 29.9 % (39.0-53.0); HGB 9.4 gm/dL (13.0-17.5); Hypochromasia Moderate; MCH 29.3 pg (25.0-35.0); MCHC 31.4 g/dL (31.0-37.0); MCV 93.4 fL (80.0-100.0); Mean Platelet Volume 7.3; Platelet Count 169 k/uL (150-450); WBC 6.3 k/uL (3.8-10.6)
[2018-11-01 06:06] LABS: Albumin 2.8 g/dL (3.5-5.0); Calcium 7.7 mg/dL (8.4-10.2); Potassium 3.8 mmol/L (3.5-5.1); Total Bilirubin 0.4 mg/dL (0.2-1.3)
[2018-11-01] MEDS: HYDROcodone/APAP 10-325MG 1 EACH TAB PO PRN (07:09)
--- NOTE | 2018-11-01 07:14 | XR ---
EXAMINATION TYPE: XR chest 1V portable DATE OF EXAM: 11/01/2018 Comparison: 10/29/2018 Clinical History: 68-year-old male Post Operative pericardial window Findings: Pericardial drain is demonstrated. Spinal stimulator array along the mid thoracic spinal canal. Heart size appears relatively normal. Diffuse interstitial prominence. Some patchy right basilar opacity p ersists. Impression: 1. Pericardial drain demonstrated. 2. Correlate for COPD with superimposed mild pulmonary vascular congestion. 3. Focal infiltrate/atelectasis at the right base.
--- NOTE | 2018-11-01 07:18 | PN ---
PROGRESS NOTE Mr. Thomas is a 68-year-old male who has a history of coronary artery disease, history of COPD, presented with symptoms of chest pain and no evidence of myocardial infarction, had abnormal myocardial perfusion imaging, underwent cardiac catheterization, was found to have critical stenosis involving the first diagonal branch, underwent stenting of that vessel yesterday. Postprocedure he was having back pain, which he has chronic back pain. Then around midnight after receiving Dilaudid for his back pain, he became hypotensive and cyanotic on the upper body. Underwent a CT scan that revealed no dissection, but there was evidence of pericardial effusion. Underwent removal of the pericardial effusion with hemodynamic improvement. He is off any pressor at this time. His blood pressure is stable he is in sinus mechanism. He is complaining of back and chest discomfort. He is in sinus mechanism. He has no malignant arrhythmia. His urine output is improving. He had underwent an echocardiogram yesterday and was seen by Dr. Wilson. The procedure was done by Dr. Jameson. At this time will continue the present medical regimen, follow his blood pressure and renal function and depending on his progress, further recommendation will be made. MMODL / IJN: [id number] /
[2018-11-01] MEDS: IPRATROPIUM-ALBUTEROL 3 ML NEB INHALATION SCH ×4 (08:21→19:46)
[2018-11-01] MEDS: SYMBICORT 160-4.5 MCG INHALER INHALATION SCH ×2 (08:21→19:46)
[2018-11-01] MEDS: ISOSORBIDE MONONITRATE ER 30 MG TAB.ER.24H PO SCH (09:21)
[2018-11-01] MEDS: ASPIRIN 81 MG PO SCH (09:21)
[2018-11-01] MEDS: predniSONE 20 MG TAB PO SCH (09:21)
[2018-11-01] MEDS: PANTOPRAZOLE 40 MG TABLET PO SCH (09:21)
[2018-11-01] MEDS: METOPROLOL TARTRATE 25 MG TAB PO SCH ×2 (09:21→20:01)
[2018-11-01] MEDS: CLOPIDOGREL 75 MG TAB PO SCH (09:21)
[2018-11-01] MEDS: AZITHROMYCIN 500 MG TAB PO SCH (09:57)
--- NOTE | 2018-11-01 10:03 | P.PN ---
Subjective Progress Note Date: 11/01/18 Principal diagnosis: Dyspnea, cough, chest pain This is a 68-year-old white male patient, who sees Dr. Gomez the pulmonary clinic for history of COPD with underlying FEV1 of 1.9 L or 67% of predicted, consistent with stage II COPD, not oxygen dependent, patient is a ex-smoker, previous history of pneumonia, previous history of myocardial infarction, coronary artery disease with previous stenting, hypertension, dyslipidemia. Patient presented to the emergency department on 10/29/2018 with complaints of coughing, increasing shortness of breath, phlegm production, wheezing, left- sided sharp chest pain, which is reproducible to palpation. His chest pain is left-sided, and is at the left rib margin. EKG was negative for any acute ST or T-wave abnormalities, lab work did not reveal any leukocytosis, white blood cell count was 6.3, hemoglobin was 12.1, d-dimer was mildly elevated to 0.95, electrolytes were within normal limits, BUN was 20 creatinine was 1.28. Troponi ns have been negative 2, proBNP was within normal limits at 251, he changes chest was completely, and showed no evidence for pulmonary embolism, bibasilar atelectasis was noted, pleural based infiltrate in the right lower lobe appeared to be unchanged and was compared to prior CT angios on 08/29/2018, hilar structures were negative for any evidence of mass, no hilar lymphadenopathy. This masslike consolidation in the right lower lobe is being followed by Dr. Gomez in the outpatient setting with follow-up CT chest. he had previously been given an option of CT-guided needle biopsy, bronchoscopy or observation and patient had opted for observation. No fever or chills, currently on suppleme ntal oxygen at 2 L and his pulse ox is 92%, hemodynamically stable. He is being evaluated by cardiology, his most recent echocardiogram in June 2018 showed preserved left ventricle systolic function with an EF of 50-55%. Repeat echocardiogram is pending at this time. We are asked to evaluate the patient for his dyspnea, and history of COPD, CT chest did not show any clear evidence of pulmonary infiltrate On 10/30/2018 patient seen in follow-up in the observation unit, he is awake and alert, in no acute distress, other than having a headache this morning, no complaints of chest pain, she is on room air, pulse ox is 97%. No Fever or chills, lung sounds reveal coarse rhonchi, patient remains on Zithromax and Rocephin for tracheobronchitis and COPD exacerbation, 3 sets of troponins were negative, proBNP was within normal limits. he is scheduled for stress test today On 11/01/2018 patient is seen in follow-up in intensive care unit, yesterday patient went for heart catheterization with the placement of a stent to the diagonal branch, there was also significant disease in the proximal LAD and complete occlusion of the RCA. Following the procedure patient developed severe pain that did not respond to nitroglycerin, was given Dilaudid, patient started becoming hypotensive and hypoxemic and obviously cyanotic. CT chest demonstrated cardiac effusion consistent with blood. There was no evidence of dissection patient was persistently hypotensive with minimal response to fluids and levo fed. Urgent echocardiogram was completed which confirmed the presence of circumferential pericardial fluid. Patient was taken to the OR emergently where he underwent pericardial window, with drainage of 450 ML of bloody effusion. Patient was taken to the intensive care unit postoperatively, this morning he seen sitting up in the recliner, still having some chest discomfort which is exacerbated by breathing, he is sitting upright, he is currently on 3 L of oxygen with a pulse ox of 93%, he is afebrile, non-tachycardic, rate of 85, normotensive, blood pressure is 119/68, denies worsening dyspnea, lung sounds are positive for minimal crackles at the bases, today's chest x-ray shows COPD with mild pulmonary vascular congestion, and atelectasis/infiltrate in the right base. Has been on additional 50 mL in the subxiphoid chest tube since insertion. Today's labs have been reviewed, and showed white blood cell count of 6.3, hemoglobin of 9.4, INR of 1.1, sodium is 140, potassium is 3.8, chloride is 114, CO2 was 18, BUN is 23 and creatinine is 1.34. Patient is receiving fl uids in the form of 0.9 normal saline at a rate of 75 ML per hour, no vasopressor support. He is slightly anxious, and confused, he has a drug safety data management specialist at the bedside. Objective - Vital Signs Vital signs: Vital Signs Temp 97.8 F 11/01/18 08:30 Pulse 85 11/01/18 09:00 Resp 19 11/01/18 09:00 BP 119/68 11/01/18 09:00 Pulse Ox 92 L 11/01/18 09:00 Intake & Output 10/31/18 11/01/18 11/01/18 18:59 06:59 18:59 Intake Total 534 3800.433 75 Output Total 250 575 85 Balance 284 3225.433 -10 Intake: IV 234 3625 75 .9 bolus 3000 Magnesium Sulfate-D5w Pmx 200 1 gm In Dextrose/Water 1 100ml.bag @ 100 mls/hr IVPB Q1H [facility] Rx#: [id number] Potassium Chloride 10 meq 200 In Water For Injection 1 100ml.bag @ 100 mls/hr IVPB Q1H [facility] Rx#: [id number] Sodium Chloride 0.9% 1, 225 75 000 ml @ 75 mls/hr IV . [id number] [facility] Rx#:[id number] Intake, IV Titration 200 175.433 Amount Norepinephrine 4 mg In 175.433 Sodium Chloride 0.9% 250 ml @ 0.05 MCG/KG/MIN 14. 69 mls/hr IV .[id number] [facility] Rx#:[id number] Sodium Chloride 0.9% 1, 200 000 ml @ 100 mls/hr IV . Q10H [facility] Rx#:[id number] Oral 100 Output: Chest Tube Drainage 25 Chest Tube Mediastinal 25 Urine 250 125 60 Estimated Blood Loss 450 Other: Voiding Method Toilet Indwelling Catheter # Voids 1 - Exam GENERAL EXAM: Alert, pleasant, 68-year-old white male, on 3 L of oxygen with a pulse ox of 93%, sitting up in the recliner, slightly anxious, confused at times HEAD: Normocephalic/atraumatic. EYES: Normal reaction of pupils, equal size. Conjunctiva pink, sclera white. NOSE: Clear with pink turbinates. THROAT: No erythema or exudates. NECK: No masses, no JVD, no thyroid enlargement, no adenopathy. CHEST: No chest wall deformity. Symmetrical expansion. Left-sided chest wall tenderness at the left rib margin, with the sharp pain, and patient has reproducible tenderness with palpation. On Zyflo chest tube is present, with small amount of serosanguineous outputs in the Pleur-evac LUNGS: Equal air entry with bibasilar crackles CVS: Regular rate and rhythm, normal S1 and S2, no gallops, no murmurs, no rubs ABDOMEN: Soft, nontender. No hepatosplenomegaly, normal bowel sounds, no gu arding or rigidity. EXTREMITIES: No clubbing, no edema, no cyanosis, 2+ pulses and upper and lower e xtremities. MUSCULOSKELETAL: Muscle strength and tone normal. SPINE: No scoliosis or deformity SKIN: No rashes CENTRAL NERVOUS SYSTEM: Alert and oriented -2. Confused at times No focal deficits, tone is normal in all 4 extremities. drug safety data management specialist is at the bedside - Labs CBC & Chem 7: 11/01/18 05:12 11/01/18 05:40 Labs: Abnormal Lab Results - Last 24 Hours (Table) 10/31/18 11/01/18 11/01/18 Range/Units 11:55 01:14 01:17 RBC 3.01 L (4.30-5.90) m/uL Hgb 8.8 L D (13.0-17.5) gm/dL Hct 26.5 L (39.0-53.0) % Plt Count 116 L (150-450) k/uL Chloride (98-107) mmol/L Carbon Dioxide (22-30) mmol/L BUN (9-20) mg/dL Creatinine (0.66-1.25) mg/dL Glucose (74-99) mg/dL POC Glucose (mg/dL) 131 H 148 H (75-99) mg/dL Calcium (8.4-10.2) mg/dL AST (17-59) U/L ALT (21-72) U/L Total Protein (6.3-8.2) g/dL Albumin (3.5-5.0) g/dL Crossmatch 11/01/18 11/01/18 11/01/18 Range/Units 01:17 01:17 02:21 RBC 3.07 L (4.30-5.90) m/uL Hgb 9.1 L (13.0-17.5) gm/dL Hct 28.1 L (39.0-53.0) % Plt Count 119 L (150-450) k/uL Chloride 110 H (98-107) mmol/L Carbon Dioxide 20 L (22-30) mmol/L BUN 23 H (9-20) mg/dL Creatinine (0.66-1.25) mg/dL Glucose 133 H (74-99) mg/dL POC Glucose (mg/dL) (75-99) mg/dL Calcium 8.1 L (8.4-10.2) mg/dL AST (17-59) U/L ALT (21-72) U/L Total Protein (6.3-8.2) g/dL Albumin (3.5-5.0) g/dL Crossmatch See Detail 11/01/18 11/01/18 11/01/18 Range/Units 02:21 05:12 05:40 RBC 3.20 L (4.30-5.90) m/uL Hgb 9.4 L (13.0-17.5) gm/dL Hct 29.9 L (39.0-53.0) % Plt Count (150-450) k/uL Chloride 112 H 114 H (98-107) mmol/L Carbon Dioxide 19 L 18 L (22-30) mmol/L BUN 22 H 23 H (9-20) mg/dL Creatinine 1.34 H (0.66-1.25) mg/dL Glucose 163 H 157 H (74-99) mg/dL POC Glucose (mg/dL) (75-99) mg/dL Calcium 7.8 L 7.7 L (8.4-10.2) mg/dL AST 86 H 297 H (17-59) U/L ALT 80 H 300 H (21-72) U/L Total Protein 4.8 L 5.0 L (6.3-8.2) g/dL Albumin 2.7 L 2.8 L (3.5-5.0) g/dL Crossmatch Assessment and Plan Plan: Assessment: #1. Cardiac tamponade, that is post coronary intervention, requiring pericardial window with evacuation of 450 mL of bloody effusion #2. Coronary artery disease, with PCI of the diagonal branch and stent placement on 10/31/2018. Proximal LAD also had significant disease and there was complete occlusion of the RCA #3. Dyspnea, cough, congestion, related to acute exacerbation of COPD and tracheobronchitis #4. Left-sided reproducible chest pain, EKG is without any acute ischemic changes, troponins are negative 2, being followed by cardiology #5. Stage II COPD, with FEV1 of 1.9 L or 67% of predicted, oxygen dependent at baseline #6. Former smoker, quit smoking in June 2018, carries [id number] smoking history #7. Coronary artery disease, with history of previous stenting in the setting of acute myocardial infarction in June 2018 #8. Previous episode of pneumonia #9. 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 Osteoarthritis #11. Chronic back pain, patient has a pain stimulator Plan: Continue close hemodynamic monitoring, chest tube output, chest x-ray has been reviewed with Dr. Almanza, hemodynamically patient remains stable, he is delirious at times, maintain drug safety data management specialist, close monitoring. Continue current medical t reatment. Will remain the ICU today. Pain control, dual antiplatelet therapy was started, hemoglobin is stable. I performed a history & physical examination of the patient and discussed their management with my nurse practitioner, Gretta Bass. I reviewed the nurse practitioner's note and agree with the documented findings and plan of care. Lung sounds are positive for scattered rhonchi, and bibasilar crackles throughout the lung pruett. The findings and the impression was discussed with the patient. I attest to the documentation by the nurse practitioner. Time with Patient: Less than 30
--- NOTE | 2018-11-01 10:40 | ECHOF ---
Referral Reason:hemopericardium MEASUREMENTS -------- HEIGHT: 167.6 cm WEIGHT: 77.1 kg BP: IVSd: 1.3 cm (0.6 - 1.1) LVIDd: 3.5 cm (3.9 - 5.3) LVPWd: 1.2 cm (0.6 - 1.1) IVSs: 1.7 cm LVIDs: 2.8 cm LVPWs: 1.4 cm LA Diam: 3.3 cm (2.7 - 3.8) Ao Diam: 4.0 cm (2.0 - 3.7) MV E Jose: 0.58 m/s MV DecT: 462 ms MV A Jose: 0.63 m/s MV E/A Ratio: 0.92 FINDINGS -------- Sinus rhythm. This was a technically adequate study. The left ventricular size is normal. There is mild concentric left ventricular hypertrophy. Left ventricular systolic function is hyperdynamic with an estimated EF of >70%. The left atrial size is normal. The right atrium was not well visualized. The aortic valve was not well visualized. Mild mitral annular calcification present. The tricuspid valve was not well visualized. The pulmonic valve was not well visualized. The aortic root is dilated measuring 4.0cm. The inferior vena cava is mildly dilated. There is a large, generalized pericardial effusion present. Possible tamponade CONCLUSIONS -------- 1. Sinus rhythm. 2. This was a technically adequate study. 3. The left ventricular size is normal. 4. There is mild concentric left ventricular hypertrophy. 5. Left ventricular systolic function is hyperdynamic with an estimated EF of >70%. 6. The left atrial size is normal. 7. The right atrium was not well visualized. 8. The aortic valve was not well visualized. 9. Mild mitral annular calcification present. 10. The tricuspid valve was not well visualized. 11. The pulmonic valve was not well visualized. 12. The aortic root is dilated measuring 4.0cm. 13. The inferior vena cava is mildly dilated. 14. There is a large, generalized pericardial effusion present. 15. Possible tamponade PROCESS ASSISTANT: Mónica Acosta RD
--- NOTE | 2018-11-01 12:12 | XR ---
EXAMINATION TYPE: XR abdomen 1V DATE OF EXAM: 11/01/2018 Comparison: None Clinical History: 68-year-old male abdominal pain/distension Findings: Lumbosacral fusion hardware is present. Degenerative device projecting at the right side of the abdom en. Gonzalez catheter is present within the bladder. Some IV contrast material has collected in the blad luís. Diffuse gassy abdomen throughout. The upper abdomen is excluded. There is further limitation due to m otion. Cholecystectomy clips. Possible 8 mm calculus relating to the left kidney. Impression: Limited due to motion and positioning. Prominent gassy bowel loops throughout, possible ileus. 8 mm l eft renal calculus.
[2018-11-01] MEDS ORDERED: BISACODYL 10 MG SUPP RECTAL STA (12:14)
[2018-11-01] MEDS ORDERED: HEPARIN SODIUM,PORCINE 5,000 UNIT/ML 1 ML VIAL SQ SCH (12:51)
--- NOTE | 2018-11-01 14:19 | P.PN ---
Subjective 68-year-old with history of coronary artery disease and previous stents came in with chest pain and had a stress test which is positive patient will undergo cardiac catheterization tomorrow. Patient is also being treated for COPD exacerbation patient doesn't have any wheeze currently to bilateral lung pruett will be switched to oral prednisone. Patient does not appear to have pneumonia Rocephin at this continue continue with azithromycin. 10/31/2018 patient will undergo cardiac catheterization today still having quite a bit of nausea may be related to gastritis from a systemic steroids or myocardial infarctions itself 11/01/2018 The patient had hemopericardium last night and patient was taken to or had a pericardial window with a chest tube placement which has 120 mL of bloody fluid. Patient's abdomen is distended tympanic abdominal x-rays consistent with ileus. There NG tube and a suppository. Patient was having nausea earlier today. Patient is also company of pain in the chest tube insertion site area Constitutional: Denied any fatigue denied any fever. Cardio vascular: denied any chest pain, palpitations Gastrointestinal as mentioned above Pulmonary: Denied any shortness of breath cough Neurologic denied any new focal deficits All inpatient medications were reviewed and appropriate changes in these medications as dictated in the interval history and assessment and plan. Objective - Vital Signs Vital signs: Vital Signs Temp 97.4 F L 11/01/18 12:00 Pulse 78 11/01/18 13:38 Resp 17 11/01/18 12:00 BP 109/69 11/01/18 12:00 Pulse Ox 94 L 11/01/18 12:00 Intake & Output 10/31/18 11/01/18 11/01/18 18:59 06:59 18:59 Intake Total 534 3800.433 650 Output Total 250 575 455 Balance 284 3225.433 195 Weight 77.111 kg Intake: IV 234 3625 650 .9 bolus 3000 Magnesium Sulfate-D5w Pmx 200 100 1 gm In Dextrose/Water 1 100ml.bag @ 100 mls/hr IVPB Q1H [facility] Rx#: [id number] Potassium Chloride 10 meq 200 100 In Water For Injection 1 100ml.bag @ 100 mls/hr IVPB Q1H [facility] Rx#: [id number] Sodium Chloride 0.9% 1, 225 450 000 ml @ 75 mls/hr IV . [id number] [facility] Rx#:[id number] Intake, IV Titration 200 175.433 Amount Norepinephrine 4 mg In 175.433 Sodium Chloride 0.9% 250 ml @ 0.05 MCG/KG/MIN 14. 69 mls/hr IV .[id number] [facility] Rx#:[id number] Sodium Chloride 0.9% 1, 200 000 ml @ 100 mls/hr IV . Q10H [facility] Rx#:[id number] Oral 100 Output: Chest Tube Drainage 115 Chest Tube Mediastinal 115 Urine 250 125 340 Estimated Blood Loss 450 Other: Voiding Method Toilet Indwelling Catheter # Voids 1 - Exam PHYSICAL EXAMINATION: GENERAL: The patient is alert and oriented x3, not in any acute distress. Well developed, well nourished. HEENT: Pupils are round and equally reacting to light. EOMI. No scleral icterus. No conjunctival pallor. Normocephalic, atraumatic. No pharyngeal erythema. No thyromegaly. CARDIOVASCULAR: S1 and S2 present. No murmurs, rubs, or gallops. PULMONARY: Chest is clear to auscultation, no wheezing or crackles. Chest tube in place ABDOMEN: Distended tympanic nontender and absent bowel sounds MUSCULOSKELETAL: No joint swelling or deformity. EXTREMITIES: No cyanosis, clubbing, or pedal edema. NEUROLOGICAL: Gross neurological examination did not reveal any focal deficits. SKIN: No rashes. - Labs CBC & Chem 7: 11/01/18 05:12 11/01/18 05:40 Labs: Abnormal Lab Results - Last 24 Hours (Table) 11/01/18 11/01/18 11/01/18 Range/Units 01:14 01:17 01:17 RBC 3.01 L (4.30-5.90) m/uL Hgb 8.8 L D (13.0-17.5) gm/dL Hct 26.5 L (39.0-53.0) % Plt Count 116 L (150-450) k/uL Chloride 110 H (98-107) mmol/L Carbon Dioxide 20 L (22-30) mmol/L BUN 23 H (9-20) mg/dL Creatinine (0.66-1.25) mg/dL Glucose 133 H (74-99) mg/dL POC Glucose (mg/dL) 148 H (75-99) mg/dL Calcium 8.1 L (8.4-10.2) mg/dL AST (17-59) U/L ALT (21-72) U/L Total Protein (6.3-8.2) g/dL Albumin (3.5-5.0) g/dL Crossmatch 11/01/18 11/01/18 11/01/18 Range/Units 01:17 02:21 02:21 RBC 3.07 L (4.30-5.90) m/uL Hgb 9.1 L (13.0-17.5) gm/dL Hct 28.1 L (39.0-53.0) % Plt Count 119 L (150-450) k/uL Chloride 112 H (98-107) mmol/L Carbon Dioxide 19 L (22-30) mmol/L BUN 22 H (9-20) mg/dL Creatinine (0.66-1.25) mg/dL Glucose 163 H (74-99) mg/dL POC Glucose (mg/dL) (75-99) mg/dL Calcium 7.8 L (8.4-10.2) mg/dL AST 86 H (17-59) U/L ALT 80 H (21-72) U/L Total Protein 4.8 L (6.3-8.2) g/dL Albumin 2.7 L (3.5-5.0) g/dL Crossmatch See Detail 11/01/18 11/01/18 Range/Units 05:12 05:40 RBC 3.20 L (4.30-5.90) m/uL Hgb 9.4 L (13.0-17.5) gm/dL Hct 29.9 L (39.0-53.0) % Plt Count (150-450) k/uL Chloride 114 H (98-107) mmol/L Carbon Dioxide 18 L (22-30) mmol/L BUN 23 H (9-20) mg/dL Creatinine 1.34 H (0.66-1.25) mg/dL Glucose 157 H (74-99) mg/dL POC Glucose (mg/dL) (75-99) mg/dL Calcium 7.7 L (8.4-10.2) mg/dL AST 297 H (17-59) U/L ALT 300 H (21-72) U/L Total Protein 5.0 L (6.3-8.2) g/dL Albumin 2.8 L (3.5-5.0) g/dL Crossmatch Assessment and Plan Plan: -unstable angina with positive stress test patient underwent cardiac luis manuel terization and stent to the first obtuse marginal branch of left circumflex there is also mild disease in the proximal anterior ascending coronary artery with significant disease in first diagonal branch. -Hemopericardium complication post cardiac catheterization and post myocardial infarction. Patient is status post pericardial window and has a chest tube in place -Ileus: NG tube will be placed, abdomen is distended and tympanic and will use a suppository. -History of coronary disease with stents to circumflex June 2018 continue with dual antiplatelet therapy beta rudi and statin -COPD with acute exacerbation patient will be switched to oral steroids and he is to azithromycin no evidence of pneumonia Rocephin will be discontinued -Hypertension -hyperlipidemia -Osteoarthritis -Chronic low back pain -DVT prophylaxis with subcutaneous heparin Patient is presently in ICU with the chest tubes to the left side of the chest
[2018-11-01] MEDS: MELATONIN 5 MG TABLET PO SCH (20:01)
[2018-11-01] MEDS: ATORVASTATIN 80 MG TAB PO SCH (20:01)
[2018-11-01] MEDS ORDERED: BENZOCAINE SPRAY 1 CAN MUCOUS MEM PRN (20:33)
[2018-11-01] MEDS: HEPARIN SODIUM,PORCINE 5,000 UNIT/ML 1 ML VIAL SQ SCH (22:11)
[2018-11-01] MEDS: SODIUM CHLORIDE 0.9% 1,000 ML IV SCH (22:12)
[2018-11-02 00:30] LABS: Glucose,Whole Blood 124 mg/dL (75-99)
[2018-11-02 05:52] LABS: Basophils % (A) 0 %; Eosinophils % (A) 0 %; HCT 28.8 % (39.0-53.0); HGB 9.7 gm/dL (13.0-17.5); Hypochromasia Slight; Lymphocytes # (A) 0.6 k/uL (1.0-4.8); Lymphocytes % (A) 8 %; MCH 30.6 pg (25.0-35.0); MCHC 33.8 g/dL (31.0-37.0); MCV 90.4 fL (80.0-100.0); Mean Platelet Volume 7.7; Monocytes # (A) 0.5 k/uL (0-1.0); Monocytes % (A) 6 %; Neutrophils # (A) 6.8 k/uL (1.3-7.7); Neutrophils % (A) 85 %; Platelet Count 173 k/uL (150-450); RBC 3.19 m/uL (4.30-5.90); RDW 14.8 % (11.5-15.5)
[2018-11-02 05:58] LABS: Albumin 3.3 g/dL (3.5-5.0); Calcium 8.8 mg/dL (8.4-10.2); Potassium 3.6 mmol/L (3.5-5.1); Total Bilirubin 0.5 mg/dL (0.2-1.3); Total Protein 5.6 g/dL (6.3-8.2)
[2018-11-02] MEDS: HEPARIN SODIUM,PORCINE 5,000 UNIT/ML 1 ML VIAL SQ SCH ×3 (06:31→21:27)
[2018-11-02] MEDS: POTASSIUM CHLORIDE 10 MEQ in WATER FOR INJECTION 1 100ML.BAG IVPB SCH ×2 (06:32→09:50)
[2018-11-02 07:03] LABS: Glucose,Whole Blood 107 mg/dL (75-99)
--- NOTE | 2018-11-02 07:35 | XR ---
EXAMINATION TYPE: XR chest 1V portable DATE OF EXAM: 11/02/2018 COMPARISON: 11/01/2018 INDICATION: Effusion TECHNIQUE: Single frontal view of the chest is obtained. FINDINGS: The heart size is normal. The pulmonary vasculature is normal. The lungs are clear. Nasogastric tube transverses the thorax. The tip may be curling back into the distal esophagus or hia kelly hernia. This is unchanged in position from prior study. IMPRESSION: 1. Mild bibasilar infiltrates. Correlate for atelectasis. 2. Nasogastric tube with the tip curled within the distal esophagus or within a hiatal hernia.
[2018-11-02] MEDS: SYMBICORT 160-4.5 MCG INHALER INHALATION SCH ×2 (08:10→19:36)
[2018-11-02] MEDS: IPRATROPIUM-ALBUTEROL 3 ML NEB INHALATION SCH ×4 (08:10→19:36)
[2018-11-02] MEDS ORDERED: BISACODYL 10 MG SUPP RECTAL PRN (09:31)
[2018-11-02] MEDS ORDERED: BISACODYL 10 MG SUPP RECTAL STA (09:31)
--- NOTE | 2018-11-02 09:33 | P.PN ---
Subjective Progress Note Date: 11/02/18 Principal diagnosis: Cardiac tamponade status post coronary intervention, coronary artery disease with history of stent placement to his circumflex coronary artery in June 2018 and to his diagonal coronary artery on 10/31/2018, history of myocardial infarction, chronic obstructive pulmonary disease with an FEV1 67% of predicted value, chronic nicotine dependence quit smoking 4 months ago, hyperlipidemia, hypertension, osteoarthritis, history of right lung mass being monitored, history of pneumonia, chronic back pain and BPH. POD #1 subxiphoid pericardial window. Patient is currently lying in bed in the intensive care unit. He is in no acute distress. The patient is complaining of pain to his back which he reports is chronic, denies any complaints of shortness of breath at this time. He remains hemodynamically stable and is currently on no inotropic or pressor support. An NG tube was placed last evening as the patient was complaining of some abdominal discomfort. Subsequently a x-ray of his abdomen was completed which showed prominent gassy bowel loops throughout with possible ileus. His abdomen remains distended this morning with positive hypoactive bowel sounds. He reports that he has been passing some small amounts of flatus. Oxygen saturations are 95% on 4 L nasal cannula. Achieving 1250 mL on his incentive spirometry. Subxiphoid chest tube remains in place draining thin serosanguineous drainage. Remains afebrile. Objective - Vital Signs Vital signs: Vital Signs Temp 98.1 F 11/02/18 08:00 Pulse 94 11/02/18 08:20 Resp 15 11/02/18 08:00 BP 140/85 11/02/18 08:00 Pulse Ox 95 11/02/18 08:00 Intake & Output 11/01/18 11/02/18 11/02/18 18:59 06:59 18:59 Intake Total 1100 975 75 Output Total 900 1225 60 Balance 200 -250 15 Weight 77.111 kg 84.8 kg Intake: IV 1100 975 75 Magnesium Sulfate-D5w Pmx 100 1 gm In Dextrose/Water 1 100ml.bag @ 100 mls/hr IVPB Q1H [facility] Rx#: [id number] Potassium Chloride 10 meq 100 In Water For Injection 1 100ml.bag @ 100 mls/hr IVPB Q1H [facility] Rx#: [id number] Sodium Chloride 0.9% 1, 900 975 75 000 ml @ 75 mls/hr IV . [id number] [facility] Rx#:[id number] Output: Chest Tube Drainage 275 290 10 Chest Tube Mediastinal 275 290 10 Gastric Drainage 500 Urine 625 435 50 Other: Voiding Method Indwelling Catheter Indwelling Catheter - Constitutional General appearance: Present: cooperative, no acute distress, obese - Respiratory Details: Lung sounds diminished to his bilateral bases. Respirations are symmetrical and nonlabored. Oxygen saturation are 95% on 4 L nasal cannula. Achieving 1250 mL on his incentive spirometry. Subxiphoid chest tube in place to water seal. No air leak is present. Draining thin serosanguineous drainage. 220 mL output in the last 8 hours, 440 mL output in the last 24 hours. - Cardiovascular Details: Regular rhythm and rate. S1 and S2 present, negative for S3, gallop or murmur. Bedside telemetry showing sinus bradycardia heart rate 56. No edema present. Knee-high GUERO hose and sequential compression devices in place to his bilateral lower extremities. - Gastrointestinal Gastrointestinal Comment(s): Abdomen is distended, and nontender. Hypoactive bowel sounds present in all 4 abdominal quadrants. No guarding or rigidity. No organomegaly. NG tube in ulises ce to low intermittent wall suction. - Genitourinary Genitourinary Comment(s): Gonzalez catheter for accurate I&O. Draining clear yellow urine. 320 mL output in the last 8 hours. - Integumentary Integumentary Comment(s): Skin is warm and dry. No clubbing or cyanosis is present. Subxiphoid incision clean, dry and approximated. Some surrounding ecchymosis. No drainage or redness is present. Dressing is clean, dry and intact. - Neurologic Neurologic: Present: CNII-XII intact - Musculoskeletal Musculoskeletal: Present: generalized weakness, strength equal bilaterally - Psychiatric Psychiatric: Present: A&O x's 3, appropriate affect, intact judgment & insight - Allied health notes Allied health notes reviewed: nursing - Labs CBC & Chem 7: 11/02/18 05:17 11/02/18 05:17 Labs: Abnormal Lab Results - Last 24 Hours (Table) 11/02/18 11/02/18 11/02/18 Range/Units 00:17 05:17 05:17 RBC 3.19 L (4.30-5.90) m/uL Hgb 9.7 L (13.0-17.5) gm/dL Hct 28.8 L (39.0-53.0) % Lymphocytes # 0.6 L (1.0-4.8) k/uL Chloride 113 H (98-107) mmol/L Carbon Dioxide 21 L (22-30) mmol/L BUN 21 H (9-20) mg/dL Glucose 100 H (74-99) mg/dL POC Glucose (mg/dL) 124 H (75-99) mg/dL AST 124 H (17-59) U/L ALT 193 H (21-72) U/L Total Protein 5.6 L (6.3-8.2) g/dL Albumin 3.3 L (3.5-5.0) g/dL 11/02/18 Range/Units 06:51 RBC (4.30-5.90) m/uL Hgb (13.0-17.5) gm/dL Hct (39.0-53.0) % Lymphocytes # (1.0-4.8) k/uL Chloride (98-107) mmol/L Carbon Dioxide (22-30) mmol/L BUN (9-20) mg/dL Glucose (74-99) mg/dL POC Glucose (mg/dL) 107 H (75-99) mg/dL AST (17-59) U/L ALT (21-72) U/L Total Protein (6.3-8.2) g/dL Albumin (3.5-5.0) g/dL - Imaging and Cardiology Chest x-ray: report reviewed, image reviewed Assessment and Plan Assessment: 1. Cardiac tamponade status post coronary intervention 2. Coronary artery disease, status post coronary artery intervention with stent placement to his diagonal coronary artery and previous stent placement to his circumflex coronary artery in June 2018 3. History of myocardial infarction 4. Chronic obstructive pulmonary disease with a FEV1 67% of predicted value 5. Chronic nicotine dependence quit smoking 4 months ago 6. Hypertension 7. Hyperlipidemia 8. Osteoarthritis 9. History of right lung mass 10. History of pneumonia 11. History of benign prostatic hypertrophy Plan: 1. Continue subxiphoid chest tube and keep chest tube to waterseal. We will continue to monitor the drainage output. 2. Medical management per primary care service and cardiology. 3. Encourage use of his incentive spirometry every hour while awake. 4. Continue GI and DVT prophylaxis. 5. Discussed the importance of continued smoking cessation. 6. Wean oxygen as tolerated. Bronchodilator management per pulmonology recommendations. 7. Increase activity as tolerated. 8. NG tube management per gastroenterology. 9. Pain management per primary care service. 10. Pericardial fluid cytology results pending. 11. More recommendations to follow based on patient's clinical course. Time with Patient: Greater than 30
--- NOTE | 2018-11-02 09:33 | P.CONS ---
History of Present Illness - Reason for Consult Consult date: 11/02/18 Ileus Requesting physician: Ilene Franks - Chief Complaint Chest discomfort - History of Present Illness 68-year-old male PMH cholecystectomy, 5 cm right lower lobe subpleural soft tissue mass being monitored in the outpatient setting, COPD, chronic back pain pain stimulator, CAD PCI stent June 2018 admitted with chest discomfort status post heart catheterization secondary to positive inducible ischemia seen on myocardial perfusion imaging underwent PTC stent diagonal branch developed cardiac tamponade and underwent pericardial window yesterday. Patient developed increased abdominal distention decreased flatus no BMs NG tube was inserted with a fair amount of bilious return. No history of bowel obstructions or bowel surgeries. Unsure if he's had a colonoscopy in the past. Abdominal x-ray yesterday prominent gassy bowel loops throughout the abdomen possible ileus. No history of inflammatory bowel diseases. No history of bowel obstructions. Hemoglobin 9.7. Platelet 173. White count 8. INR 1.1. Sodium 142. Potassium 3.6. BUN 21 creatinine 1.0. Magnesium 2.3. Review of Systems Constitutional: Denies fever, chills, sweats, weight gain, or loss. HEENT: Negative for migraines, blurred vision or loss, earaches, drainage, tinnitus, oral mucosal lesions, dysphagia, or odynophagia. Cardiac: Admitted with chest discomfort denies, arrhythmias, or palpitation. Respiratory: Negative for shortness of breath, hemoptysis, cough, or sputum production. Gastrointestinal: See HPI for pertinent findings. Genitourinary: Negative for hematuria, urgency, frequency, polyuria, dysuria, or penile discharge. Musculoskeletal: Negative for muscle aches, swelling, arthritis, and arthralgias. Neurologic: Negative for stroke or TIA. Endocrine: Negative for thyroid problems. Skin: Negative for rash or itching. Psychiatric: Negative history for depression and anxiety Past Medical History Past Medical History: Asthma, Coronary Artery Disease (CAD), Chest Pain / Angina, COPD, Hyperlipidemia, Myocardial Infarction (ID), Osteoarthritis (OA), Pneumonia, Prostate Disorder, Seizure Disorder Additional Past Medical History / Comment(s): R lung mass-being monitored, chronic back pain, numbness/tingling arms/legs, bilateral carpal tunnel syndrome, balance problems, BPH, seizure in 2003. Last Myocardial Infarction Date:: 06/22/18 History of Any Multi-Drug Resistant Organisms: None Reported Past Surgical History: Adenoidectomy, Back Surgery, Cholecystectomy, Heart Catheterization With Stent, Orthopedic Surgery, Tonsillectomy Additional Past Surgical History / Comment(s): Multiple back surgeries including a pain stimulator in place/hardware, R knee surgery with hardware, L rotator cuff repair x 4/cadaver bone, colonoscopy Past Anesthesia/Blood Transfusion Reactions: No Reported Reaction Date of Last Stent Placement:: 06/22/18 Smoking Status: Former smoker - Past Family History Father Family Medical History: Cancer Additional Family Medical History / Comment(s): Liver cancer. Mother Additional Family Medical History / Comment(s): Brain aneurysm Sister(s) Family Medical History: Cancer Additional Family Medical History / Comment(s): Lung cancer Brother(s) Family Medical History: No Reported History Family Family Medical History: Unable to Obtain Medications and Allergies Home Medications Medication Instructions Recorded Confirmed Type Doxazosin Mesylate 8 mg PO BID 04/16/15 10/29/18 History HYDROcodone/APAP 10-325MG [[place] 1 tab PO BID PRN 06/20/18 10/29/18 History 10-325] Pregabalin [Lyrica] 150 mg PO BID 06/20/18 10/29/18 History fentaNYL [Duragesic 75MCG/HR] 1 patch TRANSDERM Q72H 06/20/18 10/29/18 History Aspirin 81 mg PO DAILY #30 chew 06/24/18 10/29/18 Rx Clopidogrel [Plavix] 75 mg PO DAILY #30 tab 06/24/18 10/29/18 Rx Melatonin 3 mg PO HS #30 tablet 06/24/18 10/29/18 Rx Metoprolol Tartrate [Lopressor] 25 mg PO BID #60 tab 06/24/18 10/29/18 Rx Atorvastatin [Lipitor] 80 mg PO HS 10/29/18 10/29/18 History Allergies Allergy/AdvReac Type Severity Reaction Status Date / Time No Known Allergies Allergy Verified 10/29/18 09:33 Physical Exam Vitals: Vital Signs Temp Pulse Pulse Resp BP BP Pulse Ox 11/02/18 08:20 94 11/02/18 08:11 92 11/02/18 08:00 98.1 F 93 15 140/85 95 11/02/18 07:00 95 16 153/86 94 L 11/02/18 06:00 93 19 134/91 95 11/02/18 05:00 93 18 148/88 94 L 11/02/18 04:00 98.1 F 83 18 137/80 94 L 11/02/18 03:00 89 15 152/87 93 L 11/02/18 02:00 89 15 145/108 93 L 11/02/18 01:00 92 21 122/68 94 L 11/02/18 00:00 98.7 F 82 21 127/78 92 L 11/01/18 23:00 84 18 93 L 11/01/18 22:19 93 24 122/83 92 L 11/01/18 22:00 87 14 117/70 90 L 11/01/18 21:00 90 15 122/76 93 L 11/01/18 20:00 99 F 86 16 114/66 93 L 11/01/18 19:52 98 11/01/18 19:48 94 11/01/18 19:00 80 15 115/67 93 L 11/01/18 18:00 87 15 96/66 94 L 11/01/18 17:00 91 19 120/76 93 L 11/01/18 16:10 84 11/01/18 16:00 98.4 F 80 15 115/73 93 L 11/01/18 15:57 82 11/01/18 15:00 74 16 108/68 93 L 11/01/18 14:00 74 19 114/78 92 L 11/01/18 13:38 78 11/01/18 13:28 71 11/01/18 13:00 78 19 117/75 92 L 11/01/18 12:00 97.4 F L 78 17 109/69 94 L 11/01/18 11:00 69 16 92/68 94 L Intake and Output 11/01/18 11/02/18 11/02/18 22:59 06:59 14:59 Intake Total 600 675 75 Output Total 455 1110 60 Balance 145 -435 15 Intake: IV 600 675 75 Sodium Chloride 0.9% 1, 600 675 75 000 ml @ 75 mls/hr IV . [id number] [facility] Rx#:[id number] Output: Chest Tube Drainage 160 290 10 Chest Tube Mediastinal 160 290 10 Gastric Drainage 500 Urine 295 320 50 Other: Voiding Method Indwelling Catheter Indwelling Catheter Weight 84.8 kg General appearance: The patient is alert, oriented, in no acute distress. HET: Head is normocephalic and atraumatic. Pupils are equal and reactive. Brian pharynx is clear without lesions. NG tube with dark bilious return. Neck: Supple without lymphadenopathy. Trachea midline. Heart: S1 S2. Regular rate and rhythm. Chest tube 0 sinus drainage. Lungs: No crackles or wheezes are heard. Abdomen: Soft, distended hypoactive bowel sounds tense. No peritoneal signs. No palpable organomegaly or masses. Extremities: Normal skin color and turgor. No cyanosis, rash, ulceration, clubbing, or edema. Radial and pedal pulses are 2/4 bilaterally. Gonzalez clear yellow urine. Neurological: No focal deficits. Strength and sensation are grossly intact. Results CBC & Chem 7: 11/02/18 05:17 11/02/18 05:17 Labs: Abnormal Lab Results - Last 24 Hours (Table) 11/02/18 11/02/18 11/02/18 Range/Units 00:17 05:17 05:17 RBC 3.19 L (4.30-5.90) m/uL Hgb 9.7 L (13.0-17.5) gm/dL Hct 28.8 L (39.0-53.0) % Lymphocytes # 0.6 L (1.0-4.8) k/uL Chloride 113 H (98-107) mmol/L Carbon Dioxide 21 L (22-30) mmol/L BUN 21 H (9-20) mg/dL Glucose 100 H (74-99) mg/dL POC Glucose (mg/dL) 124 H (75-99) mg/dL AST 124 H (17-59) U/L ALT 193 H (21-72) U/L Total Protein 5.6 L (6.3-8.2) g/dL Albumin 3.3 L (3.5-5.0) g/dL 11/02/18 Range/Units 06:51 RBC (4.30-5.90) m/uL Hgb (13.0-17.5) gm/dL Hct (39.0-53.0) % Lymphocytes # (1.0-4.8) k/uL Chloride (98-107) mmol/L Carbon Dioxide (22-30) mmol/L BUN (9-20) mg/dL Glucose (74-99) mg/dL POC Glucose (mg/dL) 107 H (75-99) mg/dL AST (17-59) U/L ALT (21-72) U/L Total Protein (6.3-8.2) g/dL Albumin (3.5-5.0) g/dL Abdominal x-ray: report reviewed (Dr. Cobos) Assessment and Plan (1) Ileus Narrative/Plan: 68-year-old gentleman admitted with chest pain and discomfort status post heart catheterization with PTCA stent diagonal branch with subsequent development of cardiac tamponade status post pericardial window with development of abdominal distention decreased passage of flatus and bowel movement consistent with ileus. Current Visit: Yes Status: Acute Code(s): K56.7 - ILEUS, UNSPECIFIED SNOMED Code(s): 388903180 (2) Cardiac tamponade Narrative/Plan: Status post pericardial window Current Visit: Yes Status: Acute Code(s): I31.4 - CARDIAC TAMPONADE SNOMED Code(s): 24400989 (3) CAD (coronary artery disease) Current Visit: Yes Status: Acute Code(s): I25.10 - ATHSCL HEART DISEASE OF [place] CORONARY ARTERY W/O ANG PCTRS SNOMED Code(s): 81019744 (4) Chest pain Current Visit: Yes Status: Acute Code(s): R07.9 - CHEST PAIN, UNSPECIFIED SNOMED Code(s): 05158078 (5) Right lower lobe lung mass Current Visit: No Status: Acute Code(s): R91.8 - OTHER NONSPECIFIC ABNORMAL FINDING OF LUNG FIELD SNOMED Code(s): 550201832 Plan: 1. NG tube decompression. Dulcolax suppository 10 mg 1 now and daily as needed. 2. Protonix 40 mg IV daily. 3. Abdominal x-ray today and in a.m. If patient abdominal distention worsens and/or no passage of flatus or bowel movements recommend general surgery consultation. Thank you for this kind referral and the opportunity to participate in the care of your patient. This consultation was discussed with Dr. Cobos. The impression and plan of care have been directed as dictated.
--- NOTE | 2018-11-02 09:47 | P.PN ---
Subjective Progress Note Date: 11/02/18 Principal diagnosis: Dyspnea, cough, chest pain This is a 68-year-old white male patient, who sees Dr. Gomez the pulmonary clinic for history of COPD with underlying FEV1 of 1.9 L or 67% of predicted, consistent with stage II COPD, not oxygen dependent, patient is a ex-smoker, previous history of pneumonia, previous history of myocardial infarction, coronary artery disease with previous stenting, hypertension, dyslipidemia. Patient presented to the emergency department on 10/29/2018 with complaints of coughing, increasing shortness of breath, phlegm production, wheezing, left- sided sharp chest pain, which is reproducible to palpation. His chest pain is left-sided, and is at the left rib margin. EKG was negative for any acute ST or T-wave abnormalities, lab work did not reveal any leukocytosis, white blood cell count was 6.3, hemoglobin was 12.1, d-dimer was mildly elevated to 0.95, electrolytes were within normal limits, BUN was 20 creatinine was 1.28. Troponi ns have been negative 2, proBNP was within normal limits at 251, he changes chest was completely, and showed no evidence for pulmonary embolism, bibasilar atelectasis was noted, pleural based infiltrate in the right lower lobe appeared to be unchanged and was compared to prior CT angios on 08/29/2018, hilar structures were negative for any evidence of mass, no hilar lymphadenopathy. This masslike consolidation in the right lower lobe is being followed by Dr. Gomez in the outpatient setting with follow-up CT chest. he had previously been given an option of CT-guided needle biopsy, bronchoscopy or observation and patient had opted for observation. No fever or chills, currently on suppleme ntal oxygen at 2 L and his pulse ox is 92%, hemodynamically stable. He is being evaluated by cardiology, his most recent echocardiogram in June 2018 showed preserved left ventricle systolic function with an EF of 50-55%. Repeat echocardiogram is pending at this time. We are asked to evaluate the patient for his dyspnea, and history of COPD, CT chest did not show any clear evidence of pulmonary infiltrate On 10/30/2018 patient seen in follow-up in the observation unit, he is awake and alert, in no acute distress, other than having a headache this morning, no complaints of chest pain, she is on room air, pulse ox is 97%. No Fever or chills, lung sounds reveal coarse rhonchi, patient remains on Zithromax and Rocephin for tracheobronchitis and COPD exacerbation, 3 sets of troponins were negative, proBNP was within normal limits. he is scheduled for stress test today On 11/01/2018 patient is seen in follow-up in intensive care unit, yesterday patient went for heart catheterization with the placement of a stent to the diagonal branch, there was also significant disease in the proximal LAD and complete occlusion of the RCA. Following the procedure patient developed severe pain that did not respond to nitroglycerin, was given Dilaudid, patient started becoming hypotensive and hypoxemic and obviously cyanotic. CT chest demonstrated cardiac effusion consistent with blood. There was no evidence of dissection patient was persistently hypotensive with minimal response to fluids and levo fed. Urgent echocardiogram was completed which confirmed the presence of circumferential pericardial fluid. Patient was taken to the OR emergently where he underwent pericardial window, with drainage of 450 ML of bloody effusion. Patient was taken to the intensive care unit postoperatively, this morning he seen sitting up in the recliner, still having some chest discomfort which is exacerbated by breathing, he is sitting upright, he is currently on 3 L of oxygen with a pulse ox of 93%, he is afebrile, non-tachycardic, rate of 85, normotensive, blood pressure is 119/68, denies worsening dyspnea, lung sounds are positive for minimal crackles at the bases, today's chest x-ray shows COPD with mild pulmonary vascular congestion, and atelectasis/infiltrate in the right base. Has been on additional 50 mL in the subxiphoid chest tube since insertion. Today's labs have been reviewed, and showed white blood cell count of 6.3, hemoglobin of 9.4, INR of 1.1, sodium is 140, potassium is 3.8, chloride is 114, CO2 was 18, BUN is 23 and creatinine is 1.34. Patient is receiving fl uids in the form of 0.9 normal saline at a rate of 75 ML per hour, no vasopressor support. He is slightly anxious, and confused, he has a system safety engineer at the bedside. On 11/02/2018 patient seen in follow-up in the intensive care unit, he is awake and alert, is oriented 2, he is confused. He is currently on 4 L of oxygen pulse ox of 95%, he is afebrile, hemodynamically stable, IV 0.9 normal sitting at a rate of 75 ML per hour, NG tube was inserted last night, and there has been total of 1500 mL of gastric output chest dark, coffee ground output. Bowel sounds are absent, patient abdomen is still distended, and tympanic to percussion. Patient remains nothing by mouth, subxiphoid chest tube is in place to waterseal, and there has been 65 mL of thin serosanguineous output in the last 24 hours. Lung sounds are coarse, no significant wheezing. Patient denies any distress. No dyspnea, today's labs have been reviewed, white blood cell count is 8.0, hemoglobin is 9.7, liver enzymes are trending down, AST is 124, ALT is 193, alk phosphatase is 82. Service has been consulted, recommended Dulcolax suppository, patient is already on IV Protonix, repeat abdominal x-ray today surgical consult was recommended. Objective - Vital Signs Vital signs: Vital Signs Temp 98.1 F 11/02/18 08:00 Pulse 94 11/02/18 08:20 Resp 15 11/02/18 08:00 BP 140/85 11/02/18 08:00 Pulse Ox 95 11/02/18 08:00 Intake & Output 11/01/18 11/02/18 11/02/18 18:59 06:59 18:59 Intake Total 1100 975 75 Output Total 900 1225 60 Balance 200 -250 15 Weight 77.111 kg 84.8 kg Intake: IV 1100 975 75 Magnesium Sulfate-D5w Pmx 100 1 gm In Dextrose/Water 1 100ml.bag @ 100 mls/hr IVPB Q1H [facility] Rx#: [id number] Potassium Chloride 10 meq 100 In Water For Injection 1 100ml.bag @ 100 mls/hr IVPB Q1H [facility] Rx#: [id number] Sodium Chloride 0.9% 1, 900 975 75 000 ml @ 75 mls/hr IV . [id number] [facility] Rx#:[id number] Output: Chest Tube Drainage 275 290 10 Chest Tube Mediastinal 275 290 10 Gastric Drainage 500 Urine 625 435 50 Other: Voiding Method Indwelling Catheter Indwelling Catheter Indwelling Catheter - Exam GENERAL EXAM: Alert, pleasant, 68-year-old white male, on 4 L of oxygen with a pulse ox of 93%, sitting up in the recliner, slightly anxious, confused. She has a system safety engineer at the bedside HEAD: Normocephalic/atraumatic. EYES: Normal reaction of pupils, equal size. Conjunctiva pink, sclera white. NOSE: Clear with pink turbinates. THROAT: No erythema or exudates. NECK: No masses, no JVD, no thyroid enlargement, no adenopathy. CHEST: No chest wall deformity. Symmetrical expansion. Left-sided chest wall tenderness at the left rib margin, with the sharp pain, and patient has reproducible tenderness with palpation. subxiphoid chest tube is present, with small amount of serosanguineous outputs in the Pleur-evac LUNGS: Equal air entry with bibasilar crackles CVS: Regular rate and rhythm, normal S1 and S2, no gallops, no murmurs, no rubs ABDOMEN: Soft, nontender. No hepatosplenomegaly, normal bowel sounds, no guarding or rigidity. EXTREMITIES: No clubbing, no edema, no cyanosis, 2+ pulses and upper and lower extremities. MUSCULOSKELETAL: Muscle strength and tone normal. SPINE: No scoliosis or deformity SKIN: No rashes CENTRAL NERVOUS SYSTEM: Alert and oriented -2. Confused at times No focal deficits, tone is normal in all 4 extremities. system safety engineer is at the bedside - Labs CBC & Chem 7: 11/02/18 05:17 11/02/18 05:17 Labs: Abnormal Lab Results - Last 24 Hours (Table) 11/02/18 11/02/18 11/02/18 Range/Units 00:17 05:17 05:17 RBC 3.19 L (4.30-5.90) m/uL Hgb 9.7 L (13.0-17.5) gm/dL Hct 28.8 L (39.0-53.0) % Lymphocytes # 0.6 L (1.0-4.8) k/uL Chloride 113 H (98-107) mmol/L Carbon Dioxide 21 L (22-30) mmol/L BUN 21 H (9-20) mg/dL Glucose 100 H (74-99) mg/dL POC Glucose (mg/dL) 124 H (75-99) mg/dL AST 124 H (17-59) U/L ALT 193 H (21-72) U/L Total Protein 5.6 L (6.3-8.2) g/dL Albumin 3.3 L (3.5-5.0) g/dL 11/02/18 Range/Units 06:51 RBC (4.30-5.90) m/uL Hgb (13.0-17.5) gm/dL Hct (39.0-53.0) % Lymphocytes # (1.0-4.8) k/uL Chloride (98-107) mmol/L Carbon Dioxide (22-30) mmol/L BUN (9-20) mg/dL Glucose (74-99) mg/dL POC Glucose (mg/dL) 107 H (75-99) mg/dL AST (17-59) U/L ALT (21-72) U/L Total Protein (6.3-8.2) g/dL Albumin (3.5-5.0) g/dL Assessment and Plan Plan: Assessment: #1. Cardiac tamponade, post coronary intervention, requiring pericardial window with evacuation of 450 mL of bloody effusion #2. Coronary artery disease, with PCI of the diagonal branch and stent placement on 10/31/2018. Proximal LAD also had significant disease and there was complete occlusion of the RCA #3. Dyspnea, cough, congestion, related to acute exacerbation of COPD and tracheobronchitis #4. Left-sided reproducible chest pain, EKG is without any acute ischemic changes, troponins are negative 2, being followed by cardiology #5. Stage II COPD, with FEV1 of 1.9 L or 67% of predicted, oxygen dependent at baseline #6. Former smoker, quit smoking in June 2018, carries [id number] smoking history #7. Coronary artery disease, with history of previous stenting in the setting of acute myocardial infarction in June 2018 #8. Previous episode of pneumonia #9. 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 Osteoarthritis #11. Chronic back pain, patient has a pain stimulator #12. Ileus, abdominal distention, flat plate of the abdomen showed prominent g assy bowel loops throughout, no free air. Plan: We'll continue with current medical treatment, patient will remain in the intensive care unit today, hemodynamically he remains stable, he is confused and delirious. Maintain system safety engineer at the bedside, safety precautions, patient will remain nothing by mouth, still has persistent ileus, GI service has been consulted, there consultation was noted and appreciated. We'll consult surgery as well. We'll output from the chest tube, no complaints of chest pain, no complaints of dyspnea, encourage deep breathing and coughing. Continue GI and DVT prophylaxis. I performed a history & physical examination of the patient and discussed their management with my nurse practitioner, Gretta Bass. I reviewed the nurse practitioner's note and agree with the documented findings and plan of care. Lung sounds are positive for scattered rhonchi, and bibasilar crackles throughout the lung pruett. The findings and the impression was discussed with the patient. I attest to the documentation by the nurse practitioner. Time with Patient: Less than 30
[2018-11-02] MEDS: PANTOPRAZOLE 40 MG/10 ML VIAL IVP SCH (09:49)
--- NOTE | 2018-11-02 10:06 | P.PN ---
Subjective Progress Note Date: 11/02/18 This is a 68-year-old male patient. It was discovered during patient stay that patient sees Dr. Franks as his PCP. Patient's primary doctor has been changed to Dr. Franks. Patient presented on 10/30/2018 with chest pain. Patient has past medical history of previous cardiac stents, asthma, chest pain, COPD, hyperlipidemia, arthritis, pneumonia, prostate disorder, seizure disorder, right lung mass being monitored and ex-smoker. Patient had positive stress test and cardiac catheterization was scheduled. On 10/31/2018 patient underwent a cardiac catheterization received a stent to the first diagonal branch. Patient was started on Plavix and aspirin at that time On 11/01/2018 A-team called due to declining patient status and CT of the chest was performed showing large amount of pericardial effusion consistent with hemopericardium. Patient was transferred to the intensive care unit. Patient w as taken to the operating room for pericardial window by cardiothoracic surgery. Patient also having episodes of increased nausea and vomiting throughout the day. Abdominal x-ray completed showing pulmonary gassy bowel loops throughout, possible ileus 8 mm left renal calculus. NG tube was placed and GI services consulted. On 11/02/2018 patient is currently resting comfortably in bed. NG tube is in place. Chest tube also in place. Patient remains on Plavix. Patient remains in the intensive care unit. At this time patient is still complaining of some abdominal discomfort. Patient denies shortness of breath. Patient denies nausea vomiting or diarrhea. Patient denies any urinary burning or frequency Objective - Vital Signs Vital signs: Vital Signs Temp 98.1 F 11/02/18 08:00 Pulse 94 11/02/18 08:20 Resp 15 11/02/18 08:00 BP 140/85 11/02/18 08:00 Pulse Ox 95 11/02/18 08:00 Intake & Output 11/01/18 11/02/18 11/02/18 18:59 06:59 18:59 Intake Total 1100 975 75 Output Total 900 1225 60 Balance 200 -250 15 Weight 77.111 kg 84.8 kg Intake: IV 1100 975 75 Magnesium Sulfate-D5w Pmx 100 1 gm In Dextrose/Water 1 100ml.bag @ 100 mls/hr IVPB Q1H [facility] Rx#: [id number] Potassium Chloride 10 meq 100 In Water For Injection 1 100ml.bag @ 100 mls/hr IVPB Q1H [facility] Rx#: [id number] Sodium Chloride 0.9% 1, 900 975 75 000 ml @ 75 mls/hr IV . [id number] [facility] Rx#:[id number] Output: Chest Tube Drainage 275 290 10 Chest Tube Mediastinal 275 290 10 Gastric Drainage 500 Urine 625 435 50 Other: Voiding Method Indwelling Catheter Indwelling Catheter Indwelling Catheter - Exam Head normocephalic Neck supple Lungs clear to auscultation bilaterally no wheezing or crackles. Chest tube in place Heart regular rate and rhythm S1-S2, no rub or gallop Abdomen distended and nontender, NG tube in place Extremities no edema Neuro alert and orientated to 3 - Labs CBC & Chem 7: 11/02/18 05:17 11/02/18 05:17 Labs: Abnormal Lab Results - Last 24 Hours (Table) 11/02/18 11/02/18 11/02/18 Range/Units 00:17 05:17 05:17 RBC 3.19 L (4.30-5.90) m/uL Hgb 9.7 L (13.0-17.5) gm/dL Hct 28.8 L (39.0-53.0) % Lymphocytes # 0.6 L (1.0-4.8) k/uL Chloride 113 H (98-107) mmol/L Carbon Dioxide 21 L (22-30) mmol/L BUN 21 H (9-20) mg/dL Glucose 100 H (74-99) mg/dL POC Glucose (mg/dL) 124 H (75-99) mg/dL AST 124 H (17-59) U/L ALT 193 H (21-72) U/L Total Protein 5.6 L (6.3-8.2) g/dL Albumin 3.3 L (3.5-5.0) g/dL 11/02/18 Range/Units 06:51 RBC (4.30-5.90) m/uL Hgb (13.0-17.5) gm/dL Hct (39.0-53.0) % Lymphocytes # (1.0-4.8) k/uL Chloride (98-107) mmol/L Carbon Dioxide (22-30) mmol/L BUN (9-20) mg/dL Glucose (74-99) mg/dL POC Glucose (mg/dL) 107 H (75-99) mg/dL AST (17-59) U/L ALT (21-72) U/L Total Protein (6.3-8.2) g/dL Albumin (3.5-5.0) g/dL Assessment and Plan Assessment: 1. 1. Coronary artery disease status post cardiac stent to the first diagonal on 10/31/2018 patient is currently on Plavix. 2. Cardiac tamponade status post coronary intervention. Patient underwent pericardial window per cardiothoracic surgery on 11/01/2018 with evacuation of 450 MLS of bloody effusion. Chest tube is in place. Cardiothoracic surgery is following. Per cardiothoracic surgery continue chest tube to waterseal 3. Increased shortness breath related exacerbation of COPD and tracheobronchitis. Pulmonary services are following. Patient currently on azithromycin and DuoNeb breathing treatments 4. History of previous [place] with stent to the circumflex continued June 2018 5. History of essential hypertension 6. History of osteoarthritis 7. History of hyperlipidemia 8. History of right lung mass. 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 Pulmonary services are following 9. History of pneumonia 10. History of BPH 11. Chronic back pain, patient has pain stimulator 12. Previous smoker. quit in June 2018 13. Elevated liver enzymes. These do appear to be trending down we'll continue to monitor 14. Ileus with abdominal distention. NG tube in place GI services have been consulted. Per GI services repeat abdominal x-ray today and in a.m. If patient abdominal distention worsens and no passage of flatus or bowel movement recommend general surgery consult. currently nothing by mouth CT prophylaxis heparin. GI prophylaxis Protonix I performed an examination of the patient and discussed their management with the Nurse Practitioner. I have reviewed the Nurse Practitioner's notes and agree with the documented findings and plan of care
--- NOTE | 2018-11-02 11:10 | P.GSCN ---
<Carolina Canales Gregorio - Last Filed: 11/02/18 11:02> History of Present Illness Consult date: 11/02/18 Reason for Consult: ileus Requesting physician: Shashank Almanza History of present illness: CHIEF COMPLAINT: Ileus HISTORY OF PRESENT ILLNESS: 68-year-old male who is status post pericardial window. General surgery was consulted for further evaluation of ileus. Patient examined at the bedside in the ICU. Patient reports he began having increased abdominal distention yesterday. Denies bowel movement since day of admission. Patient reports not passing flatus yesterday but thinks he is passing flatus now. NG tube has been placed to low intermittent suction with bilious drainage. PAST MEDICAL HISTORY: See list. PAST SURGICAL HISTORY: See list. SOCIAL HISTORY: No illicit drug use. REVIEW OF SYSTEMS: CONSTITUTIONAL: Denies fever or chills. HEENT: Denies blurred vision, vision changes, or eye pain. Denies hemoptysis CARDIOVASCULAR: Denies chest pain or pressure. RESPIRATORY: No shortness of breath. GASTROINTESTINAL: Refer to HPI for pertinent findings HEMATOLOGIC: Denies bleeding disorders. GENITOURINARY: Denies any blood in urine. SKIN: Denies pruitis. Denies rash. PHYSICAL EXAM: VITAL SIGNS: Reviewed. GENERAL: Well-developed in no acute distress. HEENT: NG tube to low intermittent suction with bilious drainage. No sclera icterus. Extraocular movements grossly intact. Moist buccal mucosa. Head is atraumatic, normocephalic. ABDOMEN: Soft. Nontender. Distended. NEUROLOGIC: Awake and alert. Appears slightly confused. IMAGING: Abdominal x-ray from yesterday reveals prominent gassy bowel loops throughout. Possible ileus. ASSESSMENT: 1. Postoperative ileus PLAN: 1. Continue NG to LIS. Patient may have medications down NG. Clamp for 1 hour. 2. GI also evaluated patient this morning. Agree with dulcolax suppository and repeat abdominal x-ray in the morning. 3. Will add Reglan 10mg IV q6 4. No surgical intervention recommended at this time. We will continue to monitor. Nurse practitioner note has been reviewed by physician. Signing provider agrees with the documented findings, assessment, and plan of care. Past Medical History Past Medical History: Asthma, Coronary Artery Disease (CAD), Chest Pain / Angina, COPD, Hyperlipidemia, Myocardial Infarction ([place]), Osteoarthritis (OA), Pneumonia, Prostate Disorder, Seizure Disorder Additional Past Medical History / Comment(s): R lung mass-being monitored, chronic back pain, numbness/tingling arms/legs, bilateral carpal tunnel syndrome, balance problems, BPH, seizure in 2003. Last Myocardial Infarction Date:: 06/22/18 History of Any Multi-Drug Resistant Organisms: None Reported Past Surgical History: Adenoidectomy, Back Surgery, Cholecystectomy, Heart Catheterization With Stent, Orthopedic Surgery, Tonsillectomy Additional Past Surgical History / Comment(s): Multiple back surgeries including a pain stimulator in place/hardware, R knee surgery with hardware, L rotator cuff repair x 4/cadaver bone, colonoscopy Past Anesthesia/Blood Transfusion Reactions: No Reported Reaction Date of Last Stent Placement:: 06/22/18 Smoking Status: Former smoker - Past Family History Father Family Medical History: Cancer Additional Family Medical History / Comment(s): Liver cancer. Mother Additional Family Medical History / Comment(s): Brain aneurysm Sister(s) Family Medical History: Cancer Additional Family Medical History / Comment(s): Lung cancer Brother(s) Family Medical History: No Reported History Family Family Medical History: Unable to Obtain Medications and Allergies Home Medications Medication Instructions Recorded Confirmed Type Doxazosin Mesylate 8 mg PO BID 04/16/15 10/29/18 History HYDROcodone/APAP 10-325MG [[place] 1 tab PO BID PRN 06/20/18 10/29/18 History 10-325] Pregabalin [Lyrica] 150 mg PO BID 06/20/18 10/29/18 History fentaNYL [Duragesic 75MCG/HR] 1 patch TRANSDERM Q72H 06/20/18 10/29/18 History Aspirin 81 mg PO DAILY #30 chew 06/24/18 10/29/18 Rx Clopidogrel [Plavix] 75 mg PO DAILY #30 tab 06/24/18 10/29/18 Rx Melatonin 3 mg PO HS #30 tablet 06/24/18 10/29/18 Rx Metoprolol Tartrate [Lopressor] 25 mg PO BID #60 tab 06/24/18 10/29/18 Rx Atorvastatin [Lipitor] 80 mg PO HS 10/29/18 10/29/18 History Allergies Allergy/AdvReac Type Severity Reaction Status Date / Time No Known Allergies Allergy Verified 10/29/18 09:33 Surgical - Exam Vital Signs Temp Pulse Resp BP Pulse Ox 97.8 F 81 26 H 142/67 98 10/29/18 08:32 10/29/18 08:32 10/29/18 08:32 10/29/18 08:32 10/29/18 08:32 Results - Labs 11/02/18 05:17 11/02/18 05:17 Abnormal Lab Results - Last 24 Hours (Table) 11/02/18 11/02/18 11/02/18 Range/Units 00:17 05:17 05:17 RBC 3.19 L (4.30-5.90) m/uL Hgb 9.7 L (13.0-17.5) gm/dL Hct 28.8 L (39.0-53.0) % Lymphocytes # 0.6 L (1.0-4.8) k/uL Chloride 113 H (98-107) mmol/L Carbon Dioxide 21 L (22-30) mmol/L BUN 21 H (9-20) mg/dL Glucose 100 H (74-99) mg/dL POC Glucose (mg/dL) 124 H (75-99) mg/dL AST 124 H (17-59) U/L ALT 193 H (21-72) U/L Total Protein 5.6 L (6.3-8.2) g/dL Albumin 3.3 L (3.5-5.0) g/dL 11/02/18 Range/Units 06:51 RBC (4.30-5.90) m/uL Hgb (13.0-17.5) gm/dL Hct (39.0-53.0) % Lymphocytes # (1.0-4.8) k/uL Chloride (98-107) mmol/L Carbon Dioxide (22-30) mmol/L BUN (9-20) mg/dL Glucose (74-99) mg/dL POC Glucose (mg/dL) 107 H (75-99) mg/dL AST (17-59) U/L ALT (21-72) U/L Total Protein (6.3-8.2) g/dL Albumin (3.5-5.0) g/dL Diabetes panel 11/01/18 11/02/18 Range/Units 16:19 05:17 Sodium 142 (137-145) mmol/L Potassium 4.2 3.6 (3.5-5.1) mmol/L Chloride 113 H (98-107) mmol/L Carbon Dioxide 21 L (22-30) mmol/L BUN 21 H (9-20) mg/dL Creatinine 1.06 (0.66-1.25) mg/dL Glucose 100 H (74-99) mg/dL Calcium 8.8 (8.4-10.2) mg/dL AST 124 H (17-59) U/L ALT 193 H (21-72) U/L Alkaline Phosphatase 82 (38-126) U/L Total Protein 5.6 L (6.3-8.2) g/dL Albumin 3.3 L (3.5-5.0) g/dL Calcium panel 11/02/18 Range/Units 05:17 Calcium 8.8 (8.4-10.2) mg/dL Albumin 3.3 L (3.5-5.0) g/dL Pituitary panel 11/01/18 11/02/18 Range/Units 16:19 05:17 Sodium 142 (137-145) mmol/L Potassium 4.2 3.6 (3.5-5.1) mmol/L Chloride 113 H (98-107) mmol/L Carbon Dioxide 21 L (22-30) mmol/L BUN 21 H (9-20) mg/dL Creatinine 1.06 (0.66-1.25) mg/dL Glucose 100 H (74-99) mg/dL Calcium 8.8 (8.4-10.2) mg/dL Adrenal panel 11/01/18 11/02/18 Range/Units 16:19 05:17 Sodium 142 (137-145) mmol/L Potassium 4.2 3.6 (3.5-5.1) mmol/L Chloride 113 H (98-107) mmol/L Carbon Dioxide 21 L (22-30) mmol/L BUN 21 H (9-20) mg/dL Creatinine 1.06 (0.66-1.25) mg/dL Glucose 100 H (74-99) mg/dL Calcium 8.8 (8.4-10.2) mg/dL Total Bilirubin 0.5 (0.2-1.3) mg/dL AST 124 H (17-59) U/L ALT 193 H (21-72) U/L Alkaline Phosphatase 82 (38-126) U/L Total Protein 5.6 L (6.3-8.2) g/dL Albumin 3.3 L (3.5-5.0) g/dL <Shane Yuan - Last Filed: 11/02/18 14:45> History of Present Illness History of present illness: As above. Patient with evidence of abdominal distention and mild tenderness on exam. X-rays show distended loops of small bowel and colon although no positional film obtained yet. Rectal examination shows an empty rectal vault without masses. Will check decubitus x-rays. Keep nothing by mouth with nasogastric tube to suction. Continue daily Dulcolax suppositories. We'll follow closely with you. Surgical - Exam Vital Signs Temp Pulse Resp BP Pulse Ox 97.8 F 81 26 H 142/67 98 10/29/18 08:32 10/29/18 08:32 10/29/18 08:32 10/29/18 08:32 10/29/18 08:32 Results - Labs 11/02/18 05:17 11/02/18 05:17 Abnormal Lab Results - Last 24 Hours (Table) 11/02/18 11/02/18 11/02/18 Range/Units 00:17 05:17 05:17 RBC 3.19 L (4.30-5.90) m/uL Hgb 9.7 L (13.0-17.5) gm/dL Hct 28.8 L (39.0-53.0) % Lymphocytes # 0.6 L (1.0-4.8) k/uL Chloride 113 H (98-107) mmol/L Carbon Dioxide 21 L (22-30) mmol/L BUN 21 H (9-20) mg/dL Glucose 100 H (74-99) mg/dL POC Glucose (mg/dL) 124 H (75-99) mg/dL AST 124 H (17-59) U/L ALT 193 H (21-72) U/L Total Protein 5.6 L (6.3-8.2) g/dL Albumin 3.3 L (3.5-5.0) g/dL 11/02/18 Range/Units 06:51 RBC (4.30-5.90) m/uL Hgb (13.0-17.5) gm/dL Hct (39.0-53.0) % Lymphocytes # (1.0-4.8) k/uL Chloride (98-107) mmol/L Carbon Dioxide (22-30) mmol/L BUN (9-20) mg/dL Glucose (74-99) mg/dL POC Glucose (mg/dL) 107 H (75-99) mg/dL AST (17-59) U/L ALT (21-72) U/L Total Protein (6.3-8.2) g/dL Albumin (3.5-5.0) g/dL Diabetes panel 11/01/18 11/02/18 Range/Units 16:19 05:17 Sodium 142 (137-145) mmol/L Potassium 4.2 3.6 (3.5-5.1) mmol/L Chloride 113 H (98-107) mmol/L Carbon Dioxide 21 L (22-30) mmol/L BUN 21 H (9-20) mg/dL Creatinine 1.06 (0.66-1.25) mg/dL Glucose 100 H (74-99) mg/dL Calcium 8.8 (8.4-10.2) mg/dL AST 124 H (17-59) U/L ALT 193 H (21-72) U/L Alkaline Phosphatase 82 (38-126) U/L Total Protein 5.6 L (6.3-8.2) g/dL Albumin 3.3 L (3.5-5.0) g/dL Calcium panel 11/02/18 Range/Units 05:17 Calcium 8.8 (8.4-10.2) mg/dL Albumin 3.3 L (3.5-5.0) g/dL Pituitary panel 11/01/18 11/02/18 Range/Units 16:19 05:17 Sodium 142 (137-145) mmol/L Potassium 4.2 3.6 (3.5-5.1) mmol/L Chloride 113 H (98-107) mmol/L Carbon Dioxide 21 L (22-30) mmol/L BUN 21 H (9-20) mg/dL Creatinine 1.06 (0.66-1.25) mg/dL Glucose 100 H (74-99) mg/dL Calcium 8.8 (8.4-10.2) mg/dL Adrenal panel 11/01/18 11/02/18 Range/Units 16:19 05:17 Sodium 142 (137-145) mmol/L Potassium 4.2 3.6 (3.5-5.1) mmol/L Chloride 113 H (98-107) mmol/L Carbon Dioxide 21 L (22-30) mmol/L BUN 21 H (9-20) mg/dL Creatinine 1.06 (0.66-1.25) mg/dL Glucose 100 H (74-99) mg/dL Calcium 8.8 (8.4-10.2) mg/dL Total Bilirubin 0.5 (0.2-1.3) mg/dL AST 124 H (17-59) U/L ALT 193 H (21-72) U/L Alkaline Phosphatase 82 (38-126) U/L Total Protein 5.6 L (6.3-8.2) g/dL Albumin 3.3 L (3.5-5.0) g/dL
--- NOTE | 2018-11-02 11:14 | CDI ---
Documentation Clarification Form Date: 11/02/2018 10:47:35 AM From: Shaylee Allen RN CCDS Admit Date: 11/01/2018 7:46:00 AM Patient Name: Matthieu Thomas Visit Number: [id number] Discharge Date: ATTENTION: The Clinical Documentation Specialists (CDI) and [facility] Coding Staff appreciate your assistance in clarifying documentation. Please respond to the clarification below the line at the bottom and electronically sign. The CDI & [facility] Coding staff will review the response and follow-up if needed. Please note: Queries are made part of the Legal Health Record. If you have any questions, please contact the author of this message via ITS. Dr. Franks Myocardial Infarction is documented in Progress Notes 11/01/2018 starting 10/31/2018 patient will undergo cardiac catheterization today still having quite a bit of nausea may be related to gastritis from a systemic steroids or myocardial infarctions itself 11/01/2018 Hemopericardium complication post cardiac catheterization and pos myocardial infarction. Patient History/Risk Factors: 68 year old male presents to the ED with dyspnea. Medical Hx COPD and Myocardial Infarction with stenting in 06/2018. Clinical Indicators: Stress Test small areas of reversible ischemia Troponin: <0.012 EKG Results: Normal sinus rhythm with sinus arrhythmia Treatment: Cardiac Catheterization, Consult: Cardiology In order to capture the severity of condition and necessary documentation specificity, please clarify: Type of Infarction: * Acute STEMI ( with in the last 4 weeks) * Old STEMI ( [place] more than 4 weeks old * Acute NSTEMI( with in the last 4 weeks) * Old NSTEMI ( [place] More than 4 weeks old) * Unable to determine * Other, please specify Revision: April 2017) Acute non-STEMI MTDD
[2018-11-02] MEDS: ISOSORBIDE MONONITRATE ER 30 MG TAB.ER.24H PO SCH (11:19)
[2018-11-02] MEDS: ASPIRIN 81 MG PO SCH (11:20)
[2018-11-02] MEDS: AZITHROMYCIN 500 MG TAB PO SCH (11:20)
[2018-11-02] MEDS: CLOPIDOGREL 75 MG TAB PO SCH (11:20)
[2018-11-02] MEDS: METOPROLOL TARTRATE 25 MG TAB PO SCH ×2 (11:20→20:11)
[2018-11-02] MEDS: SODIUM CHLORIDE 0.9% 1,000 ML IV SCH (11:21)
--- NOTE | 2018-11-02 11:34 | CDI ---
Documentation Clarification Form Date: 11/02/2018 11:15:53 AM From: Shaylee Allen RN CCDS Admit Date: 11/01/2018 7:46:00 AM Patient Name: Matthieu Thomas Visit Number: [id number] Discharge Date: ATTENTION: The Clinical Documentation Specialists (CDI) and [facility] Coding Staff appreciate your assistance in clarifying documentation. Please respond to the clarification below the line at the bottom and electronically sign. The CDI & [facility] Coding staff will review the response and follow-up if needed. Please note: Queries are made part of the Legal Health Record. If you have any questions, please contact the author of this message via ITS. Dr. Shashank Almanza Stage 2 COPD, with FEV1 of 1.9L or 67% of predicted, oxygen dependent at baseline Is documented in the Progress Notes 11/01/2018 History/Risk Factors: 68 year old male presents with dyspnea. Medical history of COPD, CAD Tobacco use: former smoker 20 year smoking history Home oxygen: unknown Clinical Indicators: Vital signs: 140/85 93 98.1 axillary 95% 4L nasal cannula 11/02/2018 Lung/Breathing assessment: Equal air entry with bibasilar crackles Treatment: prednisone Breathing tx duonebs Oxygen 2L up to 4L In your professional opinion, can you please clarify if these findings signify one of the following conditions? Acuity * Acute * Chronic * Acute on Chronic Specificity * Respiratory Failure (further specify (if known)): With hypercapnia? (pCO2 >50 and pH <7.35) With hypoxia? (pO2 <60 mm Hg or SpO2 <91% on room air) * Other Diagnosis, please specify * Unable to determine (Last Revision: October 2017) Acute on chronic hypoxemic respiratory failure related to acute exacerbation of COPD MTDD
--- NOTE | 2018-11-02 11:51 | CDI ---
Documentation Clarification Form Date: 11/02/2018 11:35:51 AM From: Shaylee Allen RN CCDS Admit Date: 11/01/2018 7:46:00 AM Patient Name: Matthieu Thomas Visit Number: [id number] Discharge Date: ATTENTION: The Clinical Documentation Specialists (CDI) and [facility] Coding Staff appreciate your assistance in clarifying documentation. Please respond to the clarification below the line at the bottom and electronically sign. The CDI & [facility] Coding staff will review the response and follow-up if needed. Please note: Queries are made part of the Legal Health Record. If you have any questions, please contact the author of this message via ITS. Dr. Franks Per the Pericardial Procedure Note A total of 450ml of blood was drained. History/Risk Factors: 68 year old male presents to the ED with dyspnea. Medical history CAD, HTN , COPD Clinical indicators: CT of Chest large amount of pericardial effusion was noted Hemoglobin: 10/29/2018 12.1 11/01/2018 8.8 Hematocrit: 10/29/2018 35.7 11/01/2018 26.5 Treatment: monitoring labs, Patient typed and crossed. In order to capture the severity of condition, please clarify the type of anemia and etiology if known: Acute blood loss anemia Unable to determine Other, please specify (Last Revision: April 2017) MTDD
--- NOTE | 2018-11-02 13:56 | PN ---
PROGRESS NOTE Matthieu is a 68-year-old gentleman that I am seeing for the first time today. He has known coronary artery disease and underwent angioplasty with stent placement of the first diagonal branch and on the night of angioplasty, he became short of breath and cyanotic. Underwent a CT scan that showed a large pericardial effusion, underwent a pericardial window. I am seeing him for the first time this morning. The patient had an echocardiogram after the event that showed large pericardial effusion with tamponade with normal LV function. This morning, patient's primary problem has been abdominal distention. He developed ileus and seems somewhat confused and has an NG tube in place. PHYSICAL EXAMINATION: On exam, heart rate is 90 beats per minute. Blood pressure is 127/80. Respiratory rate is 18. Chest exam reveals diminished air entry at the bases. Heart exam reveals first and second heart sounds. No gallop. Examination of the extremities did not reveal any edema. The patient is currently on aspirin, Lipitor, Imdur, Lopressor and Plavix. I spoke to Uri, the nurse, and confirmed that he is getting his aspirin and Plavix. ASSESSMENT: 1. Coronary artery disease, status post angioplasty. 2. Pericardial effusion with tamponade, status post pericardial window. 3. Postoperative ileus. PLAN: Patient is stable from cardiac standpoint. We will follow him during his hospital stay. MMODL / IJN: [id number] /
--- NOTE | 2018-11-02 14:33 | XR ---
EXAMINATION TYPE: XR abdomen 1V DATE OF EXAM: 11/02/2018 COMPARISON: 11/01/2018 INDICATION: Abdominal distention TECHNIQUE: Single view abdomen supine FINDINGS: Prominent bowel gas is present within small bowel loops as well as the colon. Nasogastric tube is pre sent with the tip in left upper quadrant of the abdomen. Cholecystectomy clips in right quadrant. Sti mulator appears to be within the right midabdomen. Catheter may be within the urinary bladder. Postsu rgical changes are through the lumbar spine. There is an additional catheter in the epigastric region directed to the liver cardiac level. Small left pleural effusion may be present. IMPRESSION: 1. Prominent loops of bowel containing air. Air is within the colon. Obstruction is not visualized.
--- NOTE | 2018-11-02 15:55 | XR ---
EXAMINATION TYPE: XR abdomen complete w decub DATE OF EXAM: 11/02/2018 COMPARISON: 11/02/2018 INDICATION: Lung pneumoperitoneum TECHNIQUE: Abdomen is examined in the supine and left lateral decubitus views and an upright view. FINDINGS: Bowel appears distended with air. Free air is not identified. No suspicious air-fluid levels or diffe rential air-fluid levels are present. No mass effect is evident The nasogastric tube remains in position. Additional catheter in the epigastric region with the tip d irected towards the heart level remains in position. Stimulator leads from a electronic device right lower quadrant are present. IMPRESSION: 1. Distended loops of small bowel and colon. Free air is not identified in the upright or lateral dec ubitus views 2. Note is made of a small left pleural effusion. 3. Catheters remain unchanged in position.
[2018-11-02] MEDS: METOCLOPRAMIDE 5 MG/ML 2 ML VIAL IVP SCH ×2 (16:18→23:57)
[2018-11-02 16:26] LABS: Appearance,Urine Cloudy (Clear); Bilirubin,Urine Negative (Negative); Blood,Urine Large (Negative); Color,Urine Red; Glucose,Urine (UA) Negative (Negative); Hyaline Casts,Urine 15 /lpf (0-2); Ketones,Urine 2+ (Negative); Leukocyte Esterase,Urine Small (Negative); Mucus,Urine Few /hpf; Nitrite,Urine Negative (Negative); PH, Urine 5.5 (5.0-8.0); Protein,Urine 2+ (Negative); RBC,Urine >182 /hpf (0-5); Specific Gravity,Urine 1.025 (1.001-1.035); Squamous Epithelial Cell,Urine 1 /hpf (0-4); Urobilinogen,Urine <2.0 mg/dL (<2.0)
[2018-11-02 16:28] LABS: Partial Thromboplastin Time 26.7 sec (22.0-30.0); Prothrombin Time 10.8 sec (9.0-12.0)
[2018-11-02 16:39] LABS: HCT 27.8 % (39.0-53.0); HGB 9.2 gm/dL (13.0-17.5); MCH 29.7 pg (25.0-35.0); MCHC 33.2 g/dL (31.0-37.0); MCV 89.5 fL (80.0-100.0); Mean Platelet Volume 7.2; Platelet Count 177 k/uL (150-450); RBC 3.11 m/uL (4.30-5.90); RDW 14.9 % (11.5-15.5); WBC 7.7 k/uL (3.8-10.6)
[2018-11-02 16:41] LABS: ALT 145 U/L (21-72); AST 97 U/L (17-59); Albumin 3.1 g/dL (3.5-5.0); Alkaline Phosphatase 80 U/L (38-126); Anion Gap 8 mmol/L; Blood Urea Nitrogen 20 mg/dL (9-20); Calcium 9.3 mg/dL (8.4-10.2); Carbon Dioxide 19 mmol/L (22-30); Chloride 114 mmol/L (98-107); Glucose 105 mg/dL (74-99); Magnesium 2.4 mg/dL (1.6-2.3); Phosphorus 2.1 mg/dL (2.5-4.5); Potassium 4.2 mmol/L (3.5-5.1); Sodium 141 mmol/L (137-145); Total Bilirubin 0.6 mg/dL (0.2-1.3); Total Protein 5.4 g/dL (6.3-8.2)
[2018-11-02] MEDS: HYDROmorphone 0.5 MG/0.5 ML SYRINGE IVP PRN (17:20)
[2018-11-02] MEDS: ATORVASTATIN 80 MG TAB PO SCH (20:11)
[2018-11-02] MEDS: MELATONIN 5 MG TABLET PO SCH (20:38)
[2018-11-03] MEDS: SODIUM CHLORIDE 0.9% 1,000 ML IV SCH ×2 (00:20→12:46)
[2018-11-03 00:41] LABS: Glucose,Whole Blood 91 mg/dL (75-99)
[2018-11-03 05:29] LABS: Basophils % (A) 0 %; Eosinophils % (A) 1 %; HCT 25.7 % (39.0-53.0); HGB 8.3 gm/dL (13.0-17.5); Hypochromasia Slight; Lymphocytes # (A) 0.9 k/uL (1.0-4.8); Lymphocytes % (A) 13 %; MCHC 32.3 g/dL (31.0-37.0); MCV 89.7 fL (80.0-100.0); Mean Platelet Volume 7.7; Monocytes # (A) 0.4 k/uL (0-1.0); Monocytes % (A) 6 %; Neutrophils # (A) 5.6 k/uL (1.3-7.7); Neutrophils % (A) 79 %; Platelet Count 184 k/uL (150-450); RBC 2.87 m/uL (4.30-5.90); RDW 14.8 % (11.5-15.5); WBC 7.1 k/uL (3.8-10.6)
[2018-11-03 05:39] LABS: ALT 118 U/L (21-72); AST 63 U/L (17-59); Alkaline Phosphatase 77 U/L (38-126); Anion Gap 10 mmol/L; Blood Urea Nitrogen 19 mg/dL (9-20); Calcium 8.8 mg/dL (8.4-10.2); Carbon Dioxide 19 mmol/L (22-30); Chloride 111 mmol/L (98-107); Glucose 82 mg/dL (74-99); Magnesium 2.1 mg/dL (1.6-2.3); Potassium 3.6 mmol/L (3.5-5.1); Sodium 140 mmol/L (137-145); Total Bilirubin 0.5 mg/dL (0.2-1.3); Total Protein 5.2 g/dL (6.3-8.2)
[2018-11-03 05:49] LABS: Glucose,Whole Blood 83 mg/dL (75-99)
[2018-11-03] MEDS: HEPARIN SODIUM,PORCINE 5,000 UNIT/ML 1 ML VIAL SQ SCH ×3 (06:12→21:36)
[2018-11-03] MEDS: METOCLOPRAMIDE 5 MG/ML 2 ML VIAL IVP SCH ×3 (06:13→17:03)
[2018-11-03] MEDS ORDERED: Phosphorus Replacement Protoco 1 EACH MISC MISCELLANE PRN (06:22)
--- NOTE | 2018-11-03 06:26 | XR ---
EXAMINATION TYPE: XR abdomen 1V , 2 VIEWS DATE OF EXAM ORDERED: 11/03/2018 HISTORY: abdominal distention. COMPARISON: Previous study dated 11/02/2018. FINDINGS: There has been extensive lumbar fusion and laminectomy extending from L3 to S1. 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 There is a pain stimulator projecting over the lower thoracic spine. There is an NG tube present and its tip is within the stomach. There is a catheter within the bladder. The abdominal gas pattern is nonspecific with nondistended air-filled loops of large and small bowel throughout the abdomen. The degree of bowel distention has improved. No free air is identified. IMPRESSION: IMPROVED APPEARANCE OF THE APPEARANCE OF THE BOWEL.
--- NOTE | 2018-11-03 06:30 | XR ---
EXAMINATION TYPE: XR chest 1V portable DATE OF EXAM: 11/03/2018 HISTORY: hx of infiltrates, mediastinal chest tube. REFERENCE: Previous study dated 11/02/2018. FINDINGS: There is a left shoulder arthroplasty in place. There is an NG tube in place. It appears to be coiled within the distal esophagus. A pain stimulator is in place projecting over the lower thora cic spine. Heart size upper limits of normal. There is left basilar airspace disease. There is also some right b asilar airspace disease. I cannot exclude small effusions.. IMPRESSION: 1. BIBASILAR AIRSPACE DISEASE. 2. IMPROVED APPEARANCE OF THE PATIENT'S LEFT-SIDED PLEURAL EFFUSION.
[2018-11-03] MEDS: POTASSIUM PHOSPHATE 10 MMOL in SODIUM CHLORIDE 0.9% 250 ML IV SCH ×2 (06:51→09:48)
[2018-11-03] MEDS: SYMBICORT 160-4.5 MCG INHALER INHALATION SCH ×2 (08:50→20:14)
[2018-11-03] MEDS: IPRATROPIUM-ALBUTEROL 3 ML NEB INHALATION SCH ×4 (08:51→20:14)
--- NOTE | 2018-11-03 09:16 | P.PN ---
Subjective Progress Note Date: 11/03/18 Principal diagnosis: Ileus Patient feels better today. He says he passed a large amount of flatus last night. No vomiting. Nasogastric tube remains in place. White blood cell count normal. Lactic acid yesterday was normal. Today's abdominal x-rays improved. Objective - Vital Signs Vital signs: Vital Signs Temp 97.9 F 11/03/18 08:00 Pulse 88 11/03/18 08:54 Resp 15 11/03/18 08:00 BP 147/76 11/03/18 08:00 Pulse Ox 96 11/03/18 08:00 Intake & Output 11/02/18 11/03/18 11/03/18 18:59 06:59 18:59 Intake Total 925 900 400 Output Total 825 1003 227 Balance 100 -103 173 Weight 85.9 kg Intake: IV 825 900 400 Potassium Phosphate 10 250 mmol In Sodium Chloride 0 .9% 250 ml @ 125 mls/hr IV Q2H [facility] Rx#:[id number] Sodium Chloride 0.9% 1, 825 900 150 000 ml @ 75 mls/hr IV . [id number] [facility] Rx#:[id number] Intake, IV Titration 100 Amount Potassium Chloride 10 meq 100 In Water For Injection 1 100ml.bag @ 100 mls/hr IVPB Q1H [facility] Rx#: [id number] Output: Chest Tube Drainage 90 70 30 Chest Tube Mediastinal 90 70 30 Gastric Drainage 150 100 Urine 585 833 197 Other: Voiding Method Indwelling Catheter Indwelling Catheter - Exam Abdomen: Soft, mild to moderate distention with tympany, minimal tenderness left greater than right - Labs CBC & Chem 7: 11/03/18 04:59 11/03/18 04:59 Labs: Abnormal Lab Results - Last 24 Hours (Table) 11/01/18 11/02/18 11/02/18 Range/Units 01:17 15:58 15:58 RBC 3.11 L (4.30-5.90) m/uL Hgb 9.2 L (13.0-17.5) gm/dL Hct 27.8 L (39.0-53.0) % Lymphocytes # (1.0-4.8) k/uL Chloride 114 H (98-107) mmol/L Carbon Dioxide 19 L (22-30) mmol/L Glucose 105 H (74-99) mg/dL Phosphorus 2.1 L (2.5-4.5) mg/dL Magnesium 2.4 H (1.6-2.3) mg/dL AST 97 H (17-59) U/L ALT 145 H (21-72) U/L Total Protein 5.4 L (6.3-8.2) g/dL Albumin 3.1 L (3.5-5.0) g/dL Urine Protein (Negative) Urine Ketones (Negative) Urine Blood (Negative) Ur Leukocyte Esterase (Negative) Urine RBC (0-5) /hpf Urine WBC (0-5) /hpf Hyaline Casts (0-2) /lpf Urine Mucus (None) /hpf Crossmatch See Detail 11/02/18 11/03/18 11/03/18 Range/Units 16:00 04:59 04:59 RBC 2.87 L (4.30-5.90) m/uL Hgb 8.3 L (13.0-17.5) gm/dL Hct 25.7 L (39.0-53.0) % Lymphocytes # 0.9 L (1.0-4.8) k/uL Chloride 111 H (98-107) mmol/L Carbon Dioxide 19 L (22-30) mmol/L Glucose (74-99) mg/dL Phosphorus 2.0 L (2.5-4.5) mg/dL Magnesium (1.6-2.3) mg/dL AST 63 H (17-59) U/L ALT 118 H (21-72) U/L Total Protein 5.2 L (6.3-8.2) g/dL Albumin 3.0 L (3.5-5.0) g/dL Urine Protein 2+ H (Negative) Urine Ketones 2+ H (Negative) Urine Blood Large H (Negative) Ur Leukocyte Esterase Small H (Negative) Urine RBC >182 H (0-5) /hpf Urine WBC 46 H (0-5) /hpf Hyaline Casts 15 H (0-2) /lpf Urine Mucus Few H (None) /hpf Crossmatch Microbiology - Last 24 Hours (Table) 11/02/18 16:00 Urine Culture - Preliminary Urine,Clean Catch Assessment and Plan (1) Ileus Narrative/Plan: Patient's ileus is improving. Continue nasogastric tube for now given the patient's exam findings of persistent distention. Continue Reglan and Dulcolax. We'll reevaluate tomorrow. Current Visit: Yes Status: Acute Code(s): K56.7 - ILEUS, UNSPECIFIED SNOMED Code(s): 410880529
--- NOTE | 2018-11-03 09:42 | P.PN ---
Subjective Progress Note Date: 11/03/18 Principal diagnosis: Cardiac tamponade status post coronary intervention, coronary artery disease with history of stent placement to his circumflex coronary artery in June 2018 and to his diagonal coronary artery on 10/31/2018, history of myocardial infarction, chronic obstructive pulmonary disease with an FEV1 67% of predicted value, chronic nicotine dependence quit smoking 4 months ago, hyperlipidemia, hypertension, osteoarthritis, history of right lung mass being monitored, history of pneumonia, chronic back pain and BPH. POD #1 subxiphoid pericardial window. Postoperative ileus, unexpected but potential outcome due to his preoperative hypotension. Patient is currently lying in bed in the intensive care unit. He is in no acute distress. The patient reports that his abdomen feels improved today and denies any complaints of pain or shortness of breath at this time. Nasogastric tube remains in place and reports he is passing flatus. Subxiphoid chest tube remains in place to waterseal, no air leak is present. Draining thin serosanguineous drainage. The chest tube drainage has decreased in the last 24 hours with 150 mL drained in the last 24 hours. He remains afebrile and hemodynamically stable. Currently on no inotropic or pressor support. Objective - Vital Signs Vital signs: Vital Signs Temp 97.9 F 11/03/18 08:00 Pulse 90 11/03/18 09:00 Resp 14 11/03/18 09:00 BP 149/78 11/03/18 09:00 Pulse Ox 94 L 11/03/18 09:00 Intake & Output 11/02/18 11/03/18 11/03/18 18:59 06:59 18:59 Intake Total 925 900 400 Output Total 825 1003 227 Balance 100 -103 173 Weight 85.9 kg Intake: IV 825 900 400 Potassium Phosphate 10 250 mmol In Sodium Chloride 0 .9% 250 ml @ 125 mls/hr IV Q2H [facility] Rx#:[id number] Sodium Chloride 0.9% 1, 825 900 150 000 ml @ 75 mls/hr IV . [id number] [facility] Rx#:[id number] Intake, IV Titration 100 Amount Potassium Chloride 10 meq 100 In Water For Injection 1 100ml.bag @ 100 mls/hr IVPB Q1H [facility] Rx#: [id number] Output: Chest Tube Drainage 90 70 30 Chest Tube Mediastinal 90 70 30 Gastric Drainage 150 100 Urine 585 833 197 Other: Voiding Method Indwelling Catheter Indwelling Catheter - Constitutional General appearance: Present: cooperative, no acute distress, obese - Respiratory Details: Lung sounds are essentially clear to his bilateral upper lobes, diminished to his bilateral bases. Respirations are symmetrical and nonlabored. Oxygen saturation are 95% on 2 L nasal cannula. Achieving 1000 mL on his incentive spirometry. - Cardiovascular Details: Regular rhythm and rate. S1 and S2 present, negative for S3, gallop or murmur. Bedside telemetry showing normal sinus rhythm heart rate 84. No edema present. Peripheral pulses palpable. - Gastrointestinal Gastrointestinal Comment(s): Abdomen is soft, nontender with moderate distention and tympany. Passing flatus. NG tube in place to low intermittent wall suction. - Genitourinary Genitourinary Comment(s): Gonzalez catheter for accurate I&O. Draining clear yellow urine. 680 mL output in the last 8 hours. - Integumentary Integumentary Comment(s): Skin is warm and dry. No clubbing or cyanosis is present. Subxiphoid incision is clean, dry and approximated. Small amount of ecchymosis surrounding his subxiphoid incision. Subxiphoid chest tube in place to waterseal. No air leak is present. Draining thin serosanguineous drainage. 150 mL output in the last 24 hours. - Neurologic Neurologic: Present: CNII-XII intact - Musculoskeletal Musculoskeletal: Present: gait normal, generalized weakness, strength equal bilaterally - Psychiatric Psychiatric: Present: A&O x's 3, appropriate affect, intact judgment & insight - Allied health notes Allied health notes reviewed: nursing - Labs CBC & Chem 7: 11/03/18 04:59 11/03/18 04:59 Labs: Abnormal Lab Results - Last 24 Hours (Table) 11/01/18 11/02/18 11/02/18 Range/Units 01:17 15:58 15:58 RBC 3.11 L (4.30-5.90) m/uL Hgb 9.2 L (13.0-17.5) gm/dL Hct 27.8 L (39.0-53.0) % Lymphocytes # (1.0-4.8) k/uL Chloride 114 H (98-107) mmol/L Carbon Dioxide 19 L (22-30) mmol/L Glucose 105 H (74-99) mg/dL Phosphorus 2.1 L (2.5-4.5) mg/dL Magnesium 2.4 H (1.6-2.3) mg/dL AST 97 H (17-59) U/L ALT 145 H (21-72) U/L Total Protein 5.4 L (6.3-8.2) g/dL Albumin 3.1 L (3.5-5.0) g/dL Urine Protein (Negative) Urine Ketones (Negative) Urine Blood (Negative) Ur Leukocyte Esterase (Negative) Urine RBC (0-5) /hpf Urine WBC (0-5) /hpf Hyaline Casts (0-2) /lpf Urine Mucus (None) /hpf Crossmatch See Detail 11/02/18 11/03/18 11/03/18 Range/Units 16:00 04:59 04:59 RBC 2.87 L (4.30-5.90) m/uL Hgb 8.3 L (13.0-17.5) gm/dL Hct 25.7 L (39.0-53.0) % Lymphocytes # 0.9 L (1.0-4.8) k/uL Chloride 111 H (98-107) mmol/L Carbon Dioxide 19 L (22-30) mmol/L Glucose (74-99) mg/dL Phosphorus 2.0 L (2.5-4.5) mg/dL Magnesium (1.6-2.3) mg/dL AST 63 H (17-59) U/L ALT 118 H (21-72) U/L Total Protein 5.2 L (6.3-8.2) g/dL Albumin 3.0 L (3.5-5.0) g/dL Urine Protein 2+ H (Negative) Urine Ketones 2+ H (Negative) Urine Blood Large H (Negative) Ur Leukocyte Esterase Small H (Negative) Urine RBC >182 H (0-5) /hpf Urine WBC 46 H (0-5) /hpf Hyaline Casts 15 H (0-2) /lpf Urine Mucus Few H (None) /hpf Crossmatch Microbiology - Last 24 Hours (Table) 11/02/18 16:00 Urine Culture - Preliminary Urine,Clean Catch - Imaging and Cardiology Chest x-ray: report reviewed, image reviewed Assessment and Plan Assessment: 1. Cardiac tamponade status post coronary intervention 2. Coronary artery disease, status post coronary artery intervention with stent placement to his diagonal coronary artery and previous stent placement to his circumflex coronary artery in June 2018 3. History of myocardial infarction 4. Chronic obstructive pulmonary disease with a FEV1 67% of predicted value 5. Chronic nicotine dependence quit smoking 4 months ago 6. Hypertension 7. Hyperlipidemia 8. Osteoarthritis 9. History of right lung mass 10. History of pneumonia 11. History of benign prostatic hypertrophy 12. Postoperative ileus, an unexpected but potential outcome given his preope rative hypotension. Plan: 1. Continue subxiphoid chest tube and keep chest tube to waterseal. We will continue to monitor the drainage output. 2. Medical management per primary care service and cardiology. 3. Encourage use of his incentive spirometry every hour while awake. 4. Continue GI and DVT prophylaxis. 5. Discussed the importance of continued smoking cessation. 6. Wean oxygen as tolerated. Bronchodilator management per pulmonology recommendations. 7. Increase activity as tolerated. 8. NG tube management per gastroenterology and general surgery. 9. Pain management per primary care service. 10. Pericardial fluid report for cytology results show essentially peripheral blood with occasional reactive mesothelial cells. Cells cytologically diagnosti c of malignant neoplasm are not identified. 11. More recommendations to follow based on patient's clinical course. Time with Patient: Greater than 30
[2018-11-03] MEDS: CLOPIDOGREL 75 MG TAB PO SCH (09:46)
[2018-11-03] MEDS: ASPIRIN 81 MG PO SCH (09:46)
[2018-11-03] MEDS: AZITHROMYCIN 500 MG TAB PO SCH (09:46)
[2018-11-03] MEDS: ISOSORBIDE MONONITRATE ER 30 MG TAB.ER.24H PO SCH (09:47)
[2018-11-03] MEDS: HYDROcodone/APAP 10-325MG 1 EACH TAB PO PRN ×2 (09:47→21:33)
[2018-11-03] MEDS: METOPROLOL TARTRATE 25 MG TAB PO SCH ×2 (09:47→21:36)
[2018-11-03] MEDS: PANTOPRAZOLE 40 MG/10 ML VIAL IVP SCH (09:47)
--- NOTE | 2018-11-03 10:19 | P.PN ---
Subjective Progress Note Date: 11/03/18 Principal diagnosis: Dyspnea, cough, chest pain This is a 68-year-old white male patient, who sees Dr. Gomez the pulmonary clinic for history of COPD with underlying FEV1 of 1.9 L or 67% of predicted, consistent with stage II COPD, not oxygen dependent, patient is a ex-smoker, previous history of pneumonia, previous history of myocardial infarction, coronary artery disease with previous stenting, hypertension, dyslipidemia. Patient presented to the emergency department on 10/29/2018 with complaints of coughing, increasing shortness of breath, phlegm production, wheezing, left- sided sharp chest pain, which is reproducible to palpation. His chest pain is left-sided, and is at the left rib margin. EKG was negative for any acute ST or T-wave abnormalities, lab work did not reveal any leukocytosis, white blood cell count was 6.3, hemoglobin was 12.1, d-dimer was mildly elevated to 0.95, electrolytes were within normal limits, BUN was 20 creatinine was 1.28. Troponi ns have been negative 2, proBNP was within normal limits at 251, he changes chest was completely, and showed no evidence for pulmonary embolism, bibasilar atelectasis was noted, pleural based infiltrate in the right lower lobe appeared to be unchanged and was compared to prior CT angios on 08/29/2018, hilar structures were negative for any evidence of mass, no hilar lymphadenopathy. This masslike consolidation in the right lower lobe is being followed by Dr. Gomez in the outpatient setting with follow-up CT chest. he had previously been given an option of CT-guided needle biopsy, bronchoscopy or observation and patient had opted for observation. No fever or chills, currently on suppleme ntal oxygen at 2 L and his pulse ox is 92%, hemodynamically stable. He is being evaluated by cardiology, his most recent echocardiogram in June 2018 showed preserved left ventricle systolic function with an EF of 50-55%. Repeat echocardiogram is pending at this time. We are asked to evaluate the patient for his dyspnea, and history of COPD, CT chest did not show any clear evidence of pulmonary infiltrate On 10/30/2018 patient seen in follow-up in the observation unit, he is awake and alert, in no acute distress, other than having a headache this morning, no complaints of chest pain, she is on room air, pulse ox is 97%. No Fever or chills, lung sounds reveal coarse rhonchi, patient remains on Zithromax and Rocephin for tracheobronchitis and COPD exacerbation, 3 sets of troponins were negative, proBNP was within normal limits. he is scheduled for stress test today The patient is seen today able 2018 in follow-up in the observation unit. He is currently resting quite comfortably in bed, awake and alert in no acute distress. No further chest pain. No worsening shortness of breath. Maintaining good O2 saturations in the upper 90s on 2 L/m per nasal cannula. He's been afebrile. Hemodynamically stable. His Lexiscan stress test revealed evidence of small area of ischemia. The plan is for cardiac catheterization later this afternoon. On 11/01/2018 patient is seen in follow-up in intensive care unit, yesterday patient went for heart catheterization with the placement of a stent to the diagonal branch, there was also significant disease in the proximal LAD and complete occlusion of the RCA. Following the procedure patient developed severe pain that did not respond to nitroglycerin, was given Dilaudid, patient started becoming hypotensive and hypoxemic and obviously cyanotic. CT chest demonstrated cardiac effusion consistent with blood. There was no evidence of dissection patient was persistently hypotensive with minimal response to fluids and levo fed. Urgent echocardiogram was completed which confirmed the presence of circumferential pericardial fluid. Patient was taken to the OR emergently where he underwent pericardial window, with drainage of 450 ML of bloody effusion. Patient was taken to the intensive care unit postoperatively, this m orning he seen sitting up in the recliner, still having some chest discomfort which is exacerbated by breathing, he is sitting upright, he is currently on 3 L of oxygen with a pulse ox of 93%, he is afebrile, non-tachycardic, rate of 85, normotensive, blood pressure is 119/68, denies worsening dyspnea, lung sounds are positive for minimal crackles at the bases, today's chest x-ray shows COPD with mild pulmonary vascular congestion, and atelectasis/infiltrate in the right base. Has been on additional 50 mL in the subxiphoid chest tube since insertion. Today's labs have been reviewed, and showed white blood cell count of 6.3, hemoglobin of 9.4, INR of 1.1, sodium is 140, potassium is 3.8, chloride is 114, CO2 was 18, BUN is 23 and creatinine is 1.34. Patient is receiving fluids in the form of 0.9 normal saline at a rate of 75 ML per hour, no vasopressor support. He is slightly anxious, and confused, he has a safety council director at the bedside. On 11/02/2018 patient seen in follow-up in the intensive care unit, he is awake and alert, is oriented 2, he is confused. He is currently on 4 L of oxygen pulse ox of 95%, he is afebrile, hemodynamically stable, IV 0.9 normal sitting at a rate of 75 ML per hour, NG tube was inserted last night, and there has been total of 1500 mL of gastric output chest dark, coffee ground output. Bowel sounds are absent, patient abdomen is still distended, and tympanic to percussion. Patient remains nothing by mouth, subxiphoid chest tube is in place to waterseal, and there has been 65 mL of thin serosanguineous output in the last 24 hours. Lung sounds are coarse, no significant wheezing. Patient denies any distress. No dyspnea, today's labs have been reviewed, white blood cell count is 8.0, hemoglobin is 9.7, liver enzymes are trending down, AST is 124, ALT is 193, alk phosphatase is 82. Service has been consulted, recommended Dulcolax suppository, patient is already on IV Protonix, repeat abdominal x-ray today surgical consult was recommended. The patient is seen today 11/03/2018 in follow-up in the intensive care unit. He is currently awake and alert and oriented 3 today improved mental status. He denies any worsening shortness of breath, cough or congestion. Maintaining O2 saturations in the 90s on room air. Chest x-ray shows bibasilar airspace disease. There is improved appearance of the left-sided pleural effusion. He's been afebrile. Hemodynamically stable. Nasogastric tube remains in place. Abdominal x-ray shows improved appearance of the distention of the bowel. Subxiphoid chest tube remains in place to waterseal. Currently no air leak. 150 MLS drained the past 24 hours. White count 7.1. Hemoglobin 8.3. Creatinine 0.89. 0.9 normal saline at 75 ML's per hour. He remains on Symbicort and DuoNeb inhalations. Antibiotics in the form of azithromycin. Objective - Vital Signs Vital signs: Vital Signs Temp 97.9 F 11/03/18 08:00 Pulse 90 11/03/18 09:00 Resp 14 11/03/18 09:00 BP 149/78 11/03/18 09:00 Pulse Ox 94 L 11/03/18 09:00 Intake & Output 11/02/18 11/03/18 11/03/18 18:59 06:59 18:59 Intake Total 925 900 475 Output Total 825 1003 377 Balance 100 -103 98 Weight 85.9 kg Intake: IV 825 900 475 Potassium Phosphate 10 250 mmol In Sodium Chloride 0 .9% 250 ml @ 125 mls/hr IV Q2H [facility] Rx#:[id number] Sodium Chloride 0.9% 1, 825 900 225 000 ml @ 75 mls/hr IV . [id number] [facility] Rx#:[id number] Intake, IV Titration 100 Amount Potassium Chloride 10 meq 100 In Water For Injection 1 100ml.bag @ 100 mls/hr IVPB Q1H [facility] Rx#: [id number] Output: Chest Tube Drainage 90 70 30 Chest Tube Mediastinal 90 70 30 Gastric Drainage 150 100 Urine 585 833 347 Other: Voiding Method Indwelling Catheter Indwelling Catheter - Exam GENERAL EXAM: Alert, pleasant 68-year-old gentleman, comfortable in no apparent distress. On room air. HEAD: Normocephalic. EYES: Normal reaction of pupils, equal size. NOSE: Nasogastric tube secured in place. Clear with pink turbinates. THROAT: No erythema or exudates. NECK: No masses, no JVD. CHEST: No chest wall deformity. Subxiphoid chest tube remains in place. LUNGS: Equal air entry with echoes in the posterior bases.. CVS: S1 and S2 normal with no audible murmur, regular rhythm. ABDOMEN: Distended, soft, normal bowel sounds, no guarding or rigidity. SPINE: No scoliosis or deformity SKIN: No rashes CENTRAL NERVOUS SYSTEM: No focal deficits, tone is normal in all 4 extremities. EXTREMITIES: There is no peripheral edema. No clubbing, no cyanosis. Peripheral pulses are intact. - Labs CBC & Chem 7: 11/03/18 04:59 11/03/18 04:59 Labs: Abnormal Lab Results - Last 24 Hours (Table) 11/01/18 11/02/18 11/02/18 Range/Units 01:17 15:58 15:58 RBC 3.11 L (4.30-5.90) m/uL Hgb 9.2 L (13.0-17.5) gm/dL Hct 27.8 L (39.0-53.0) % Lymphocytes # (1.0-4.8) k/uL Chloride 114 H (98-107) mmol/L Carbon Dioxide 19 L (22-30) mmol/L Glucose 105 H (74-99) mg/dL Phosphorus 2.1 L (2.5-4.5) mg/dL Magnesium 2.4 H (1.6-2.3) mg/dL AST 97 H (17-59) U/L ALT 145 H (21-72) U/L Total Protein 5.4 L (6.3-8.2) g/dL Albumin 3.1 L (3.5-5.0) g/dL Urine Protein (Negative) Urine Ketones (Negative) Urine Blood (Negative) Ur Leukocyte Esterase (Negative) Urine RBC (0-5) /hpf Urine WBC (0-5) /hpf Hyaline Casts (0-2) /lpf Urine Mucus (None) /hpf Crossmatch See Detail 11/02/18 11/03/18 11/03/18 Range/Units 16:00 04:59 04:59 RBC 2.87 L (4.30-5.90) m/uL Hgb 8.3 L (13.0-17.5) gm/dL Hct 25.7 L (39.0-53.0) % Lymphocytes # 0.9 L (1.0-4.8) k/uL Chloride 111 H (98-107) mmol/L Carbon Dioxide 19 L (22-30) mmol/L Glucose (74-99) mg/dL Phosphorus 2.0 L (2.5-4.5) mg/dL Magnesium (1.6-2.3) mg/dL AST 63 H (17-59) U/L ALT 118 H (21-72) U/L Total Protein 5.2 L (6.3-8.2) g/dL Albumin 3.0 L (3.5-5.0) g/dL Urine Protein 2+ H (Negative) Urine Ketones 2+ H (Negative) Urine Blood Large H (Negative) Ur Leukocyte Esterase Small H (Negative) Urine RBC >182 H (0-5) /hpf Urine WBC 46 H (0-5) /hpf Hyaline Casts 15 H (0-2) /lpf Urine Mucus Few H (None) /hpf Crossmatch Microbiology - Last 24 Hours (Table) 11/02/18 16:00 Urine Culture - Preliminary Urine,Clean Catch Assessment and Plan Assessment: Assessment: #1. Dyspnea, cough, congestion, related to acute exacerbation of COPD and tracheobronchitis #2. Coronary artery disease status post stenting of the diagonal branch. Significant disease of the proximal LAD and complete occlusion of the RCA. Cardiac tamponade, status post pericardial window with subxiphoid chest tube in place. #3. Stage II COPD, with FEV1 of 1.9 L or 67% of predicted, oxygen dependent at baseline #4. Former smoker, quit smoking in June 2018, carries [id number] smoking history #5. Coronary artery disease, with history of previous stenting in the setting of acute myocardial infarction in June 2018 #6. Previous episode of pneumonia #7. 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 Osteoarthritis #9. Chronic back pain, patient has a pain stimulator Plan: The patient was seen and evaluated by Dr. Almanza. Chest x-ray and labs were re viewed. We'll continue with current treatment plan. He is more oriented today. We will increase his activity as tolerated. We'll continue with current treatment plan. We'll continue to follow. I, the cosigning physician, performed a history & physical examination of the patient. Lungs sounds crackles in the posterior bases. Maintaining good O2 saturations in the 90s on room air. I discussed the assessment and plan of care with my nurse practitioner, Elise Guerra. I attest to the above note as dictated by her.
--- NOTE | 2018-11-03 10:19 | PN ---
PROGRESS NOTE Mr. Thomas is a 68-year-old male with known history of coronary artery disease, history of chronic obstructive lung disease, who presented with symptoms of chest pain, had an abnormal myocardial perfusion imaging and subsequently cardiac catheterization and stenting of his diagonal branch. Postoperatively, he became hypotensive and was found to have pericardial effusion requiring a pericardiocentesis with a pericardial tube. He had ileus and had an NG tube placed. His abdominal pain is better. His breathing is stable, hemodynamically stable. He is denying any chest pain and no dizziness. No palpitation. He has no evidence of malignant arrhythmia. He continues to be at this time on aspirin 18 1 mg daily, Lipitor 80 mg daily, Plavix 75 mg daily, isosorbide mononitrate 30 mg daily, metoprolol tartrate 25 mg twice a day. PHYSICAL EXAMINATION: Blood pressure 140/80 with a heart rate in the 80s. LUNGS: No wheezes. HEART: Regular rate and rhythm. S1, S2. No S3. No rub. ABDOMEN: Soft and nontender. Positive bowel sounds, no organomegaly. EXTREMITIES: No edema. Pericardial tube in place. LAB DATA: BUN and creatinine 19 and 0.89. Potassium 3.6. AST of 63, ALT of 118. Hemoglobin of 8.3. Chest x-ray revealed bibasilar airspace disease. Abdominal x-ray shows improved appearance. IMPRESSION: 1. Status post stenting of the diagonal branch. 2. Pericardial effusion with possible perforation resolved with pericardiocentesis. 3. Ileus with small bowel obstruction. 4. History of chronic obstructive lung disease. 5. Anemia. 6. Renal failure, resolved. 7. Abnormal liver function test, improving. RECOMMENDATION: From the cardiac standpoint, will continue present therapy. I am hopeful that will be able to remove the NG tube within the next day. Increase his level of activity. Depending on the drainage of the pericardial tube, the removal will be decided. In the meantime, will continue present therapy. He will continue incentive spirometry and depending on his progress, further recommendation will be made. MMODL / IJN: [id number] /
--- NOTE | 2018-11-03 11:35 | P.PN ---
Subjective Progress Note Date: 11/03/18 This is a 68-year-old male patient. It was discovered during patient stay that patient sees Dr. Franks as his PCP. Patient's primary doctor has been changed to Dr. Franks. Patient presented on 10/30/2018 with chest pain. Patient has past medical history of previous cardiac stents, asthma, chest pain, COPD, hyperlipidemia, arthritis, pneumonia, prostate disorder, seizure disorder, right lung mass being monitored and ex-smoker. Patient had positive stress test and cardiac catheterization was scheduled. On 10/31/2018 patient underwent a cardiac catheterization received a stent to the first diagonal branch. Patient was started on Plavix and aspirin at that time On 11/01/2018 A-team called due to declining patient status and CT of the chest was performed showing large amount of pericardial effusion consistent with hemopericardium. Patient was transferred to the intensive care unit. Patient w as taken to the operating room for pericardial window by cardiothoracic surgery. Patient also having episodes of increased nausea and vomiting throughout the day. Abdominal x-ray completed showing pulmonary gassy bowel loops throughout, possible ileus 8 mm left renal calculus. NG tube was placed and GI services consulted. On 11/02/2018 patient is currently resting comfortably in bed. NG tube is in place. Chest tube also in place. Patient remains on Plavix. Patient remains in the intensive care unit. At this time patient is still complaining of some abdominal discomfort. Patient denies shortness of breath. Patient denies nausea vomiting or diarrhea. Patient denies any urinary burning or frequency On 11/03/2018 patient is currently resting in bed family at bedside. Patient states some improvement with abdominal pain NG tube in place. Ileus is improving per surgical services will continue to monitor. Discussed case with cardiothoracic surgery possible plans to remove chest tube tomorrow 11/04/2018. At this time patient denies chest pain or shortness of breath. Patient denies nausea vomiting or diarrhea. Patient denies any urinary burning or frequency Objective - Vital Signs Vital signs: Vital Signs Temp 97.9 F 11/03/18 08:00 Pulse 75 11/03/18 11:00 Resp 12 11/03/18 11:00 BP 146/81 11/03/18 11:00 Pulse Ox 95 11/03/18 11:00 Intake & Output 11/02/18 11/03/1819 18:59 06:59 18:59 Intake Total 925 900 875 Output Total 825 1003 652 Balance 100 -103 223 Weight 85.9 kg Intake: IV 825 900 875 Potassium Phosphate 10 500 mmol In Sodium Chloride 0 .9% 250 ml @ 125 mls/hr IV Q2H [facility] Rx#:[id number] Sodium Chloride 0.9% 1, 825 900 375 000 ml @ 75 mls/hr IV . [id number] [facility] Rx#:[id number] Intake, IV Titration 100 Amount Potassium Chloride 10 meq 100 In Water For Injection 1 100ml.bag @ 100 mls/hr IVPB Q1H [facility] Rx#: [id number] Output: Chest Tube Drainage 90 70 30 Chest Tube Mediastinal 90 70 30 Gastric Drainage 150 100 Urine 585 833 622 Other: Voiding Method Indwelling Catheter Indwelling Catheter Indwelling Catheter - Exam Head normocephalic Neck supple Lungs clear to auscultation bilaterally no wheezing or crackles. Chest tube in place Heart regular rate and rhythm S1-S2, no rub or gallop Abdomen distended and nontender, NG tube in place Extremities no edema Neuro alert and orientated to 3 - Labs CBC & Chem 7: 11/03/18 04:59 11/03/18 04:59 Labs: Abnormal Lab Results - Last 24 Hours (Table) 11/01/18 11/02/18 11/02/18 Range/Units 01:17 15:58 15:58 RBC 3.11 L (4.30-5.90) m/uL Hgb 9.2 L (13.0-17.5) gm/dL Hct 27.8 L (39.0-53.0) % Lymphocytes # (1.0-4.8) k/uL Chloride 114 H (98-107) mmol/L Carbon Dioxide 19 L (22-30) mmol/L Glucose 105 H (74-99) mg/dL Phosphorus 2.1 L (2.5-4.5) mg/dL Magnesium 2.4 H (1.6-2.3) mg/dL AST 97 H (17-59) U/L ALT 145 H (21-72) U/L Total Protein 5.4 L (6.3-8.2) g/dL Albumin 3.1 L (3.5-5.0) g/dL Urine Protein (Negative) Urine Ketones (Negative) Urine Blood (Negative) Ur Leukocyte Esterase (Negative) Urine RBC (0-5) /hpf Urine WBC (0-5) /hpf Hyaline Casts (0-2) /lpf Urine Mucus (None) /hpf Crossmatch See Detail 11/02/18 11/03/18 11/03/18 Range/Units 16:00 04:59 04:59 RBC 2.87 L (4.30-5.90) m/uL Hgb 8.3 L (13.0-17.5) gm/dL Hct 25.7 L (39.0-53.0) % Lymphocytes # 0.9 L (1.0-4.8) k/uL Chloride 111 H (98-107) mmol/L Carbon Dioxide 19 L (22-30) mmol/L Glucose (74-99) mg/dL Phosphorus 2.0 L (2.5-4.5) mg/dL Magnesium (1.6-2.3) mg/dL AST 63 H (17-59) U/L ALT 118 H (21-72) U/L Total Protein 5.2 L (6.3-8.2) g/dL Albumin 3.0 L (3.5-5.0) g/dL Urine Protein 2+ H (Negative) Urine Ketones 2+ H (Negative) Urine Blood Large H (Negative) Ur Leukocyte Esterase Small H (Negative) Urine RBC >182 H (0-5) /hpf Urine WBC 46 H (0-5) /hpf Hyaline Casts 15 H (0-2) /lpf Urine Mucus Few H (None) /hpf Crossmatch Microbiology - Last 24 Hours (Table) 11/02/18 16:00 Urine Culture - Preliminary Urine,Clean Catch Assessment and Plan Assessment: 1. 1. Coronary artery disease status post cardiac stent to the first diagonal on 10/31/2018 patient is currently on Plavix. 2. Cardiac tamponade status post coronary intervention. Patient underwent pericardial window per cardiothoracic surgery on 11/01/2018 with evacuation of 450 MLS of bloody effusion. Chest tube is in place. Cardiothoracic surgery is following. Per cardiothoracic surgery continue chest tube to waterseal. Plans for possible removal of chest tube tomorrow 11/04/2018 3. Increased shortness breath related exacerbation of COPD and tracheobronchitis. Pulmonary services are following. Patient currently on azithromycin and DuoNeb breathing treatments 4. History of previous VT with stent to the circumflex continued June 2018 5. History of essential hypertension 6. History of osteoarthritis 7. History of hyperlipidemia 8. History of right lung mass. 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 Pulmonary services are following 9. History of pneumonia 10. History of BPH 11. Chronic back pain, patient has pain stimulator 12. Previous smoker. quit in June 2018 13. Elevated liver enzymes. These do appear to be trending down we'll continue to monitor 14. Ileus with abdominal distention. NG tube in place GI services have been consulted. currently nothing by mouth. Per surgical services ileus is improving. Continue Reglan and Dulcolax CT prophylaxis heparin. GI prophylaxis Protonix I performed an examination of the patient and discussed their management with the Nurse Practitioner. I have reviewed the Nurse Practitioner's notes and agree with the documented findings and plan of care
[2018-11-03 12:53] LABS: Glucose,Whole Blood 91 mg/dL (75-99)
[2018-11-03] MEDS: ACETAMINOPHEN TAB 325 MG TAB PO PRN (17:03)
--- NOTE | 2018-11-03 18:03 | P.PN ---
Subjective Progress Note Date: 11/03/18 Principal diagnosis: Ileus Patient seen lying in bed. He is reporting passing flatus with a small bowel movement earlier in the day. He is also reporting that he feels as if he needs to pass another bowel movement. No nausea or vomiting reported. Patient has NG tube in place. Objective - Vital Signs Vital signs: Vital Signs Temp 98.4 F 11/03/18 16:00 Pulse 79 11/03/18 17:00 Resp 19 11/03/18 17:00 BP 137/87 11/03/18 17:00 Pulse Ox 93 L 11/03/18 17:00 Intake & Output 11/02/18 11/03/18 11/03/18 18:59 06:59 18:59 Intake Total 399 002 1943 Output Total 825 1003 1617 Balance 100 -103 -292 Weight 85.9 kg Intake: IV 596 201 2337 Potassium Phosphate 10 500 mmol In Sodium Chloride 0 .9% 250 ml @ 125 mls/hr IV Q2H [facility] Rx#:[id number] Sodium Chloride 0.9% 1, 825 900 825 000 ml @ 75 mls/hr IV . [id number] [facility] Rx#:[id number] Intake, IV Titration 100 Amount Potassium Chloride 10 meq 100 In Water For Injection 1 100ml.bag @ 100 mls/hr IVPB Q1H [facility] Rx#: [id number] Output: Chest Tube Drainage 90 70 70 Chest Tube Mediastinal 90 70 70 Gastric Drainage 150 100 400 Urine 940 182 2910 Other: Voiding Method Indwelling Catheter Indwelling Catheter Indwelling Catheter - Exam On physical examination, patient appears comfortable in no apparent distress. HEAD: Normocephalic, atraumatic. EYES: No scleral icterus. No conjunctival injection. MOUTH: No lesions, tongue midline. NECK: Trachea midline, no gross abnormalities. ABDOMEN: Soft, obese, distended with positive bowel sounds appreciated. Bowel sounds are positive. No organomegaly. No guarding or rigidity. EXTREMITIES: Minimal pedal edema. SKIN: No rashes, no jaundice. NEUROLOGIC: Alert and oriented x3. No focal deficits. - Labs CBC & Chem 7: 11/03/18 04:59 11/03/18 04:59 Labs: Abnormal Lab Results - Last 24 Hours (Table) 04/25/19 04/27/19 04/27/19 Range/Units 01:17 04:59 04:59 RBC 2.87 L (4.30-5.90) m/uL Hgb 8.3 L (13.0-17.5) gm/dL Hct 25.7 L (39.0-53.0) % Lymphocytes # 0.9 L (1.0-4.8) k/uL Chloride 111 H (98-107) mmol/L Carbon Dioxide 19 L (22-30) mmol/L Phosphorus 2.0 L (2.5-4.5) mg/dL AST 63 H (17-59) U/L ALT 118 H (21-72) U/L Total Protein 5.2 L (6.3-8.2) g/dL Albumin 3.0 L (3.5-5.0) g/dL Crossmatch See Detail Microbiology - Last 24 Hours (Table) 11/02/18 16:00 Urine Culture - Preliminary Urine,Clean Catch Assessment and Plan (1) Ileus Narrative/Plan: Patient with recent cardiac stent placement complicated by cardiac tamponade not and status post cardiac window who subsequently developed ileus. Currently the patient is seen lying in bed with NG tube in place reporting flatus and improvement in abdominal distention and pain. He also had a small bowel mo vement earlier in the day and reports the sensation of needing to have another bowel movement. Overall improving. Current Visit: Yes Status: Acute Code(s): K56.7 - ILEUS, UNSPECIFIED SNOMED Code(s): 395019495 Plan: Supportive care Nothing by mouth NG tube in place Surgical service following appreciate the recommendations Continue to monitor with serial abdominal examinations and x-rays Aggressive electrolyte replacement Reglan and Dulcolax ordered Thank you for allowing us to participate in the care of the patient
[2018-11-03 18:36] LABS: Glucose,Whole Blood 83 mg/dL (75-99)
[2018-11-03] MEDS: ATORVASTATIN 80 MG TAB PO SCH (21:36)
[2018-11-03] MEDS: MELATONIN 5 MG TABLET PO SCH (21:36)
[2018-11-03] MEDS ORDERED: DILTIAZEM DRIP BOLUS FROM BAG 1 MG SOLN IV ONE (21:52)
[2018-11-03] MEDS ORDERED: DILTIAZEM 125 MG in SODIUM CHLORIDE 0.9% 100 ML IV SCH (22:00)
--- NOTE | 2018-11-03 22:17 | XR ---
EXAM: XR Chest, 1 View CLINICAL HISTORY: Shortness of breath TECHNIQUE: Frontal view of the chest. COMPARISON: Chest x-ray dated 08/16/2018 FINDINGS: Lungs: Diffuse airspace opacities most prominent within lung bases. Findings are concerning for pulmonary vascular congestion versus an infectious process. Pleural space: Probable small left-sided pleural effusion. No pneumothorax. Heart: Mild enlargement the heart. Mediastinum: See below. Bones/joints: Left shoulder arthroplasty. Tubes, lines and devices: Enteric tube is seen coursing into stomach which appears coiled and extends back into the thoracic cavity. Findings may represent a moderate sized hiatal hernia. Consider repositioning. IMPRESSION: 1. Diffuse airspace opacities most prominent within lung bases. Findings are concerning for pulmonary vascular congestion versus an infectious process. 2. Probable small left-sided pleural effusion. 3. Enteric tube is seen coursing into stomach which appears coiled and extends back into the thoracic cavity. Findings may represent a moderate sized hiatal hernia. Consider repositioning.
[2018-11-04 00:03] LABS: Glucose,Whole Blood 93 mg/dL (75-99)
[2018-11-04] MEDS: METOCLOPRAMIDE 5 MG/ML 2 ML VIAL IVP SCH ×5 (01:24→23:17)
[2018-11-04 05:39] LABS: Basophils % (A) 0 %; Eosinophils # (A) 0.2 k/uL (0-0.7); Eosinophils % (A) 2 %; HCT 26.8 % (39.0-53.0); HGB 8.4 gm/dL (13.0-17.5); Lymphocytes # (A) 0.9 k/uL (1.0-4.8); Lymphocytes % (A) 13 %; MCH 28.5 pg (25.0-35.0); MCHC 31.3 g/dL (31.0-37.0); MCV 90.9 fL (80.0-100.0); Mean Platelet Volume 7.1; Monocytes # (A) 0.3 k/uL (0-1.0); Monocytes % (A) 5 %; Neutrophils # (A) 5.2 k/uL (1.3-7.7); Neutrophils % (A) 78 %; Platelet Count 189 k/uL (150-450); RBC 2.95 m/uL (4.30-5.90); RDW 14.9 % (11.5-15.5); WBC 6.6 k/uL (3.8-10.6)
[2018-11-04 06:00] LABS: ALT 95 U/L (21-72); AST 46 U/L (17-59); Albumin 2.9 g/dL (3.5-5.0); Alkaline Phosphatase 75 U/L (38-126); Anion Gap 8 mmol/L; Blood Urea Nitrogen 16 mg/dL (9-20); Calcium 8.8 mg/dL (8.4-10.2); Carbon Dioxide 24 mmol/L (22-30); Chloride 108 mmol/L (98-107); Glucose 84 mg/dL (74-99); Phosphorus 2.6 mg/dL (2.5-4.5); Potassium 3.5 mmol/L (3.5-5.1); Sodium 140 mmol/L (137-145); Total Bilirubin 0.6 mg/dL (0.2-1.3); Total Protein 5.2 g/dL (6.3-8.2)
[2018-11-04] MEDS: HEPARIN SODIUM,PORCINE 5,000 UNIT/ML 1 ML VIAL SQ SCH ×3 (06:19→20:55)
[2018-11-04] MEDS: SODIUM CHLORIDE 0.9% 1,000 ML IV SCH ×2 (06:19→16:39)
--- NOTE | 2018-11-04 06:42 | XR ---
EXAMINATION TYPE: XR chest 1V portable DATE OF EXAM: 11/04/2018 HISTORY: Post op pericardial window. REFERENCE: Previous study dated 11/03/2018. FINDINGS: There has been a previous left shoulder arthroplasty. There is an NG tube in place and its tip is in the stomach. There is worsening bibasilar airspace disease. The heart is enlarged. I suspect small effusions. IMPRESSION: WORSENING BIBASILAR AIRSPACE DISEASE.
[2018-11-04] MEDS: POTASSIUM BICARBONATE/CIT AC 20 MEQ TABLET.EFF NG-TUBE SCH ×4 (06:54→23:17)
[2018-11-04] MEDS: SYMBICORT 160-4.5 MCG INHALER INHALATION SCH ×2 (07:55→19:24)
[2018-11-04] MEDS: IPRATROPIUM-ALBUTEROL 3 ML NEB INHALATION SCH ×4 (07:55→19:24)
[2018-11-04] MEDS: AZITHROMYCIN 500 MG TAB PO SCH (09:46)
[2018-11-04] MEDS: CLOPIDOGREL 75 MG TAB PO SCH (09:46)
[2018-11-04] MEDS: ISOSORBIDE MONONITRATE ER 30 MG TAB.ER.24H PO SCH (09:46)
[2018-11-04] MEDS: PANTOPRAZOLE 40 MG/10 ML VIAL IVP SCH (09:46)
[2018-11-04] MEDS: METOPROLOL TARTRATE 25 MG TAB PO SCH ×2 (09:46→20:55)
[2018-11-04] MEDS: ASPIRIN 81 MG PO SCH (09:47)
--- NOTE | 2018-11-04 09:51 | P.PN ---
Subjective Progress Note Date: 11/04/18 Principal diagnosis: Dyspnea, cough, chest pain This is a 68-year-old white male patient, who sees Dr. Gomez the pulmonary clinic for history of COPD with underlying FEV1 of 1.9 L or 67% of predicted, consistent with stage II COPD, not oxygen dependent, patient is a ex-smoker, previous history of pneumonia, previous history of myocardial infarction, coronary artery disease with previous stenting, hypertension, dyslipidemia. Patient presented to the emergency department on 10/29/2018 with complaints of coughing, increasing shortness of breath, phlegm production, wheezing, left- sided sharp chest pain, which is reproducible to palpation. His chest pain is left-sided, and is at the left rib margin. EKG was negative for any acute ST or T-wave abnormalities, lab work did not reveal any leukocytosis, white blood cell count was 6.3, hemoglobin was 12.1, d-dimer was mildly elevated to 0.95, electrolytes were within normal limits, BUN was 20 creatinine was 1.28. Troponi ns have been negative 2, proBNP was within normal limits at 251, he changes chest was completely, and showed no evidence for pulmonary embolism, bibasilar atelectasis was noted, pleural based infiltrate in the right lower lobe appeared to be unchanged and was compared to prior CT angios on 08/29/2018, hilar structures were negative for any evidence of mass, no hilar lymphadenopathy. This masslike consolidation in the right lower lobe is being followed by Dr. Gomez in the outpatient setting with follow-up CT chest. he had previously been given an option of CT-guided needle biopsy, bronchoscopy or observation and patient had opted for observation. No fever or chills, currently on suppleme ntal oxygen at 2 L and his pulse ox is 92%, hemodynamically stable. He is being evaluated by cardiology, his most recent echocardiogram in June 2018 showed preserved left ventricle systolic function with an EF of 50-55%. Repeat echocardiogram is pending at this time. We are asked to evaluate the patient for his dyspnea, and history of COPD, CT chest did not show any clear evidence of pulmonary infiltrate On 10/30/2018 patient seen in follow-up in the observation unit, he is awake and alert, in no acute distress, other than having a headache this morning, no complaints of chest pain, she is on room air, pulse ox is 97%. No Fever or chills, lung sounds reveal coarse rhonchi, patient remains on Zithromax and Rocephin for tracheobronchitis and COPD exacerbation, 3 sets of troponins were negative, proBNP was within normal limits. he is scheduled for stress test today On 11/01/2018 patient is seen in follow-up in intensive care unit, yesterday patient went for heart catheterization with the placement of a stent to the diagonal branch, there was also significant disease in the proximal LAD and complete occlusion of the RCA. Following the procedure patient developed severe pain that did not respond to nitroglycerin, was given Dilaudid, patient started becoming hypotensive and hypoxemic and obviously cyanotic. CT chest demonstrated cardiac effusion consistent with blood. There was no evidence of dissection patient was persistently hypotensive with minimal response to fluids and levo fed. Urgent echocardiogram was completed which confirmed the presence of circumferential pericardial fluid. Patient was taken to the OR emergently where he underwent pericardial window, with drainage of 450 ML of bloody effusion. Patient was taken to the intensive care unit postoperatively, this morning he seen sitting up in the recliner, still having some chest discomfort which is exacerbated by breathing, he is sitting upright, he is currently on 3 L of oxygen with a pulse ox of 93%, he is afebrile, non-tachycardic, rate of 85, normotensive, blood pressure is 119/68, denies worsening dyspnea, lung sounds are positive for minimal crackles at the bases, today's chest x-ray shows COPD with mild pulmonary vascular congestion, and atelectasis/infiltrate in the right base. Has been on additional 50 mL in the subxiphoid chest tube since insertion. Today's labs have been reviewed, and showed white blood cell count of 6.3, hemoglobin of 9.4, INR of 1.1, sodium is 140, potassium is 3.8, chloride is 114, CO2 was 18, BUN is 23 and creatinine is 1.34. Patient is receiving fl uids in the form of 0.9 normal saline at a rate of 75 ML per hour, no vasopressor support. He is slightly anxious, and confused, he has a aviation safety officer at the bedside. On 11/02/2018 patient seen in follow-up in the intensive care unit, he is awake and alert, is oriented 2, he is confused. He is currently on 4 L of oxygen pulse ox of 95%, he is afebrile, hemodynamically stable, IV 0.9 normal sitting at a rate of 75 ML per hour, NG tube was inserted last night, and there has been total of 1500 mL of gastric output chest dark, coffee ground output. Bowel sounds are absent, patient abdomen is still distended, and tympanic to percussion. Patient remains nothing by mouth, subxiphoid chest tube is in place to waterseal, and there has been 65 mL of thin serosanguineous output in the last 24 hours. Lung sounds are coarse, no significant wheezing. Patient denies any distress. No dyspnea, today's labs have been reviewed, white blood cell count is 8.0, hemoglobin is 9.7, liver enzymes are trending down, AST is 124, ALT is 193, alk phosphatase is 82. Service has been consulted, recommended Dulcolax suppository, patient is already on IV Protonix, repeat abdominal x-ray today surgical consult was recommended. On 10/27/2018 patient seen in follow-up in the intensive care unit, patient sitting up in the recliner, in no acute distress, his abdomen remains distended, he does have bowel sounds are hypoactive. NG tube remains in place, and patient still has significant output from the NG tube 1382 mL over the last 24 hours. There has been only 70 mL of serosanguineous output from patient's subxiphoid chest tube, which is to waterseal, he remains on 2 L of oxygen, his pulse ox is 93%, he is afebrile, hemodynamically stable. He is less confused on today's exam, today's labs have been reviewed, and showed a white blood cell, 6.6, hemoglobin of 8.4, sodium of 140, potassium of 3.5, chloride is 108, BUN of 16, creatinine 0.89. Urine culture has been negative. Patient has remained nothing by mouth except for some popsicles, yesterday patient apparently had an episode of aspiration after choking on his oral [place], but his chest x-ray shows worsening bibasilar airspace disease, and right lower lobe in particular. No fever or chills, antibiotic coverage, in the form of Zithromax. Breathing treatments, patient is afebrile. Objective - Vital Signs Vital signs: Vital Signs Temp 97.9 F 11/04/18 08:00 Pulse 88 11/04/18 09:00 Resp 27 H 11/04/18 09:00 BP 159/78 11/04/18 09:00 Pulse Ox 93 L 11/04/18 09:00 Intake & Output 11/03/18 11/04/18 11/04/18 18:59 06:59 18:59 Intake Total 1400 975 150 Output Total 1677 2080 395 Balance -277 -1105 -245 Weight 82.1 kg Intake: IV 1400 975 150 Potassium Phosphate 10 500 mmol In Sodium Chloride 0 .9% 250 ml @ 125 mls/hr IV Q2H [facility] Rx#:[id number] Sodium Chloride 0.9% 1, 900 975 150 000 ml @ 75 mls/hr IV . [id number] [facility] Rx#:[id number] Output: Chest Tube Drainage 70 20 20 Chest Tube Mediastinal 70 20 20 Gastric Drainage 400 450 Urine 1207 1460 375 Oral Regurgitation 150 Other: Voiding Method Indwelling Catheter Indwelling Catheter # Voids 1 - Exam GENERAL EXAM: Alert, pleasant, 68-year-old white male, on 2 L of oxygen with a pulse ox of 93%, sitting up in the recliner, in no acute distress. HEAD: Normocephalic/atraumatic. EYES: Normal reaction of pupils, equal size. Conjunctiva pink, sclera white. NOSE: Clear with pink turbinates. NG tube is in place, draining dark brown mukul clive output THROAT: No erythema or exudates. NECK: No masses, no JVD, no thyroid enlargement, no adenopathy. CHEST: No chest wall deformity. Symmetrical expansion. Subxiphoid chest tube is present, with small amount of serosanguineous outputs in the Pleur-evac LUNGS: Equal air entry with bibasilar crackles CVS: Regular rate and rhythm, normal S1 and S2, no gallops, no murmurs, no rubs ABDOMEN: Soft, nontender. No hepatosplenomegaly, normal bowel sounds, no guarding or rigidity. EXTREMITIES: No clubbing, no edema, no cyanosis, 2+ pulses and upper and lower extremities. MUSCULOSKELETAL: Muscle strength and tone normal. SPINE: No scoliosis or deformity SKIN: No rashes CENTRAL NERVOUS SYSTEM: Alert and oriented -2. Confused at times No focal deficits, tone is normal in all 4 extremities. aviation safety officer is at the bedside - Labs CBC & Chem 7: 11/04/18 05:06 11/04/18 05:06 Labs: Abnormal Lab Results - Last 24 Hours (Table) 11/04/18 11/04/18 Range/Units 05:06 05:06 RBC 2.95 L (4.30-5.90) m/uL Hgb 8.4 L (13.0-17.5) gm/dL Hct 26.8 L (39.0-53.0) % Lymphocytes # 0.9 L (1.0-4.8) k/uL Chloride 108 H (98-107) mmol/L ALT 95 H (21-72) U/L Total Protein 5.2 L (6.3-8.2) g/dL Albumin 2.9 L (3.5-5.0) g/dL Microbiology - Last 24 Hours (Table) 11/02/18 16:00 Urine Culture - Final Urine,Clean Catch Assessment and Plan Plan: Assessment: #1. Cardiac tamponade, post coronary intervention, requiring pericardial window with evacuation of 450 mL of bloody effusion #2. Coronary artery disease, with PCI of the diagonal branch and stent placement on 10/31/2018. Proximal LAD also had significant disease and there was complete occlusion of the RCA #3. Dyspnea, cough, congestion, related to acute exacerbation of COPD and tracheobronchitis #4. Left-sided reproducible chest pain, EKG is without any acute ischemic changes, troponins are negative 2, being followed by cardiology #5. Stage II COPD, with FEV1 of 1.9 L or 67% of predicted, oxygen dependent at baseline #6. Former smoker, quit smoking in June 2018, carries [id number] smoking history #7. Coronary artery disease, with history of previous stenting in the setting of acute myocardial infarction in June 2018 #8. Previous episode of pneumonia #9. 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 Osteoarthritis #11. Chronic back pain, patient has a pain stimulator #12. Ileus, abdominal distention, flat plate of the abdomen showed prominent gassy bowel loops throughout, no free air. Plan: We'll switch the antibiotic coverage to Zosyn, today's chest x-ray has been reviewed by Dr. Almanza, and shows worsening of bibasilar airspace disease, and right lower lobe infiltrate, suspicious for aspiration pneumonia. Continue with breathing treatments. Patient is afebrile, maintain aspiration precautions, patient still has a large output from the NG tube, and abdominal distention, will remain nothing by mouth except for ice chips and popsicles. Surgeries on the case and following. We'll continue to follow I performed a history & physical examination of the patient and discussed their management with my nurse practitioner, Gretta Bass. I reviewed the nurse practitioner's note and agree with the documented findings and plan of care. Lung sounds are positive for scattered rhonchi, and bibasilar crackles throughout the lung [place]. The findings and the impression was discussed with the patient. I attest to the documentation by the nurse practitioner. Time with Patient: Less than 30
--- NOTE | 2018-11-04 10:01 | PN ---
PROGRESS NOTE Mr. Thomas is a 68-year-old male with a known history of coronary artery disease, underwent stenting of his diagonal branch. His procedure was complicated with delayed pericardial effusion and tamponade requiring a pericardiocentesis. He had ileus and he is feeling better in that regard. His breathing is stable. He continued to be on an NG tube. He continues to be in sinus mechanism. He is feeling stronger. He denies any dizziness or palpitation. He denies any nausea. Hemodynamically stable. He is on no pressor. He continues to be on aspirin once a day, Lipitor 80 mg daily, Plavix 75 mg daily, isosorbide mononitrate 30 mg daily, metoprolol tartrate 25 mg twice a day. PHYSICAL EXAMINATION: Blood pressure running in the 140s to 150s with a heart rate in 70s. LUNGS: A few crackles at the bases. HEART: Regular rate and rhythm, S1, S2. No S3. No rub appreciated. ABDOMEN: Soft positive bowel sounds. No organomegaly. EXTREMITIES: No edema. LAB DATA: Revealed hemoglobin of 8.4, BUN and creatinine 16 and 0.89. IMPRESSION: 1. Status post stenting of the diagonal branch. 2. Pericardial effusion status post pericardiocentesis. 3. Small bowel obstruction with ileus. 4. History of chronic obstructive lung disease. 5. History of hypertension. 6. Hyperlipidemia. RECOMMENDATIONS: We will continue present therapy. I am hopeful that we will be able to pull the NG tube out today, probably pull the pericardial tube as well today. Continue the rest of his medical regimen. Increase his level of activity and depending on his progress, further recommendations will be made. MMODL / IJN: [id number] /
--- NOTE | 2018-11-04 10:15 | P.PN ---
Subjective Progress Note Date: 11/04/18 Principal diagnosis: Cardiac tamponade status post coronary intervention, coronary artery disease with history of stent placement to his circumflex coronary artery in June 2018 and to his diagonal coronary artery on 10/31/2018, history of myocardial infarction, chronic obstructive pulmonary disease with an FEV1 67% of predicted value, chronic nicotine dependence quit smoking 4 months ago, hyperlipidemia, hypertension, osteoarthritis, history of right lung mass being monitored, history of pneumonia, chronic back pain and BPH. POD #3 subxiphoid pericardial window. Postoperative ileus, unexpected but potential outcome due to his preoperative hypotension. Patient is currently lying in bed in the intensive care unit. He is in no acute distress. The patient reports that his abdomen feels much better today. He denies any complaints of pain or shortness of breath at this time. Nasogastric tube remains in place to low intermittent wall suction and reports he is co ntinuing to pass flatus. Subxiphoid chest tube remains in place to waterseal, no air leak is present. Draining thin serosanguineous drainage. The chest tube drainage has decreased in the last 24 hours with 70 mL drained in the last 24 hours. He remains afebrile and hemodynamically stable. Currently on no inotropic or pressor support. Objective - Vital Signs Vital signs: Vital Signs Temp 97.9 F 11/04/18 08:00 Pulse 88 11/04/18 09:00 Resp 27 H 11/04/18 09:00 BP 159/78 11/04/18 09:00 Pulse Ox 93 L 11/04/18 09:00 Intake & Output 11/03/18 11/04/18 11/04/18 18:59 06:59 18:59 Intake Total 1400 975 150 Output Total 1677 2080 395 Balance -277 -1105 -245 Weight 82.1 kg Intake: IV 1400 975 150 Potassium Phosphate 10 500 mmol In Sodium Chloride 0 .9% 250 ml @ 125 mls/hr IV Q2H [facility] Rx#:[id number] Sodium Chloride 0.9% 1, 900 975 150 000 ml @ 75 mls/hr IV . [id number] [facility] Rx#:[id number] Output: Chest Tube Drainage 70 20 20 Chest Tube Mediastinal 70 20 20 Gastric Drainage 400 450 Urine 1207 1460 375 Oral Regurgitation 150 Other: Voiding Method Indwelling Catheter Indwelling Catheter # Voids 1 - Constitutional General appearance: Present: cooperative, no acute distress, obese - Respiratory Details: Lung sounds essentially clear to his bilateral upper lobes, diminished to his bilateral bases. Respirations are symmetrical and nonlabored. Oxygen saturation are 93% on 2 L nasal cannula. Achieving 1000 mL on his incentive spirometry. - Cardiovascular Details: Regular rhythm and rate. S1 and S2 present, negative for S3, gallop or murmur. Bedside telemetry showing normal sinus rhythm heart rate 87. No edema present. Peripheral pulses palpable. - Gastrointestinal Gastrointestinal Comment(s): Abdomen soft, nontender and slightly distended. Active bowel sounds all 4 abdominal quadrants. No organomegaly. Passing flatus. NG tube in place to low intermittent wall suction. - Genitourinary Genitourinary Comment(s): Gonzalez catheter for accurate I&O. Draining clear yellow urine. 800 mL output last 8 hours. - Integumentary Integumentary Comment(s): Skin is warm and dry. No clubbing or cyanosis is present. Subxiphoid incision is clean, dry and approximated. No drainage or redness is present. Some surrounding ecchymosis is present. Subxiphoid chest tube insertion site clean, dry and intact. - Neurologic Neurologic: Present: CNII-XII intact - Musculoskeletal Musculoskeletal: Present: gait normal, strength equal bilaterally - Psychiatric Psychiatric: Present: A&O x's 3, appropriate affect, intact judgment & insight - Allied health notes Allied health notes reviewed: nursing - Labs CBC & Chem 7: 11/04/18 05:06 11/04/18 05:06 Labs: Abnormal Lab Results - Last 24 Hours (Table) 11/04/18 11/04/18 Range/Units 05:06 05:06 RBC 2.95 L (4.30-5.90) m/uL Hgb 8.4 L (13.0-17.5) gm/dL Hct 26.8 L (39.0-53.0) % Lymphocytes # 0.9 L (1.0-4.8) k/uL Chloride 108 H (98-107) mmol/L ALT 95 H (21-72) U/L Total Protein 5.2 L (6.3-8.2) g/dL Albumin 2.9 L (3.5-5.0) g/dL Microbiology - Last 24 Hours (Table) 11/02/18 16:00 Urine Culture - Final Urine,Clean Catch - Imaging and Cardiology Chest x-ray: report reviewed, image reviewed Assessment and Plan Assessment: 1. Cardiac tamponade status post coronary intervention 2. Coronary artery disease, status post coronary artery intervention with stent placement to his diagonal coronary artery and previous stent placement to his circumflex coronary artery in June 2018 3. History of myocardial infarction 4. Chronic obstructive pulmonary disease with a FEV1 67% of predicted value 5. Chronic nicotine dependence quit smoking 4 months ago 6. Hypertension 7. Hyperlipidemia 8. Osteoarthritis 9. History of right lung mass 10. History of pneumonia 11. History of benign prostatic hypertrophy 12. Postoperative ileus, an unexpected but potential outcome given his pr eoperative hypotension. Plan: 1. Continue subxiphoid chest tube and keep chest tube to waterseal. We will continue to monitor the drainage output, likely to remove subxiphoid chest tube tomorrow 11/05/2018.. 2. Medical management per primary care service and cardiology. 3. Encourage use of his incentive spirometry every hour while awake. 4. Continue GI and DVT prophylaxis. 5. Discussed the importance of continued smoking cessation. 6. Wean oxygen as tolerated. Bronchodilator management per pulmonology recommendations. 7. Increase activity as tolerated. 8. NG tube management per gastroenterology and general surgery. 9. Pain management per primary care service. 10. Pericardial fluid report for cytology results show essentially peripheral blood with occasional reactive mesothelial cells. Cells cytologically diagnostic of malignant neoplasm are not identified. 11. Okay to remove Gonzalez catheter per cardiothoracic standpoint. 12. More recommendations to follow based on patient's clinical course. Time with Patient: Greater than 30
--- NOTE | 2018-11-04 10:48 | P.PN ---
Subjective Progress Note Date: 11/04/18 Principal diagnosis: Ileus Patient feels well today. Still feels bloated. Some flatus but no bowel movement. Nasogastric output still somewhat heavy. Objective - Vital Signs Vital signs: Vital Signs Temp 97.9 F 11/04/18 08:00 Pulse 88 11/04/18 09:00 Resp 27 H 11/04/18 09:00 BP 159/78 11/04/18 09:00 Pulse Ox 93 L 11/04/18 09:00 Intake & Output 11/03/18 11/04/18 11/04/18 18:59 06:59 18:59 Intake Total 1400 975 150 Output Total 1677 2080 395 Balance -277 -1105 -372 Weight 82.1 kg Intake: IV 1400 975 150 Potassium Phosphate 10 500 mmol In Sodium Chloride 0 .9% 250 ml @ 125 mls/hr IV Q2H [facility] Rx#:[id number] Sodium Chloride 0.9% 1, 900 975 150 000 ml @ 75 mls/hr IV . [id number] [facility] Rx#:[id number] Output: Chest Tube Drainage 70 20 20 Chest Tube Mediastinal 70 20 20 Gastric Drainage 400 450 Urine 1207 1460 375 Oral Regurgitation 150 Other: Voiding Method Indwelling Catheter Indwelling Catheter # Voids 1 - Exam Abdomen: Soft, mild distention, mild tympany, tenderness minimal - Labs CBC & Chem 7: 11/04/18 05:06 11/04/18 05:06 Labs: Abnormal Lab Results - Last 24 Hours (Table) 11/04/18 11/04/18 Range/Units 05:06 05:06 RBC 2.95 L (4.30-5.90) m/uL Hgb 8.4 L (13.0-17.5) gm/dL Hct 26.8 L (39.0-53.0) % Lymphocytes # 0.9 L (1.0-4.8) k/uL Chloride 108 H (98-107) mmol/L ALT 95 H (21-72) U/L Total Protein 5.2 L (6.3-8.2) g/dL Albumin 2.9 L (3.5-5.0) g/dL Microbiology - Last 24 Hours (Table) 11/04/18 08:20 Sputum Culture - Preliminary Sputum 11/02/18 16:00 Urine Culture - Final Urine,Clean Catch Assessment and Plan (1) Ileus Narrative/Plan: Continue nasogastric tube to suction. Gradually increase activity as able. Continue Reglan and Dulcolax. Current Visit: Yes Status: Acute Code(s): K56.7 - ILEUS, UNSPECIFIED SNOMED Code(s): 945735259
[2018-11-04 12:03] LABS: Glucose,Whole Blood 98 mg/dL (75-99)
[2018-11-04] MEDS: PIPERACILLIN-TAZOBACTAM 3.375 GM in SODIUM CHLORIDE 0.9% 100 ML IVPB SCH ×3 (12:08→23:17)
--- NOTE | 2018-11-04 14:52 | P.PN ---
Subjective Progress Note Date: 11/04/18 This is a 68-year-old male patient. It was discovered during patient stay that patient sees Dr. Franks as his PCP. Patient's primary doctor has been changed to Dr. Franks. Patient presented on 10/30/2018 with chest pain. Patient has past medical history of previous cardiac stents, asthma, chest pain, COPD, hyperlipidemia, arthritis, pneumonia, prostate disorder, seizure disorder, right lung mass being monitored and ex-smoker. Patient had positive stress test and cardiac catheterization was scheduled. On 10/31/2018 patient underwent a cardiac catheterization received a stent to the first diagonal branch. Patient was started on Plavix and aspirin at that time On 11/01/2018 A-team called due to declining patient status and CT of the chest was performed showing large amount of pericardial effusion consistent with hemopericardium. Patient was transferred to the intensive care unit. Patient was taken to the operating room for pericardial window by cardiothoracic surgery. Patient also having episodes of increased nausea and vomiting throughout the day. Abdominal x-ray completed showing pulmonary gassy bowel loops throughout, possible ileus 8 mm left renal calculus. NG tube was placed and GI services consulted. On 11/02/2018 patient is currently resting comfortably in bed. NG tube is in place. Chest tube also in place. Patient remains on Plavix. Patient remains in the intensive care unit. At this time patient is still complaining of some abdominal discomfort. Patient denies shortness of breath. Patient denies nausea vomiting or diarrhea. Patient denies any urinary burning or frequency On 11/03/2018 patient is currently resting in bed family at bedside. Patient states some improvement with abdominal pain NG tube in place. Ileus is improving per surgical services will continue to monitor. Discussed case with cardiothoracic surgery possible plans to remove chest tube tomorrow 11/04/2018. At this time patient denies chest pain or shortness of breath. Patient denies nausea vomiting or diarrhea. Patient denies any urinary burning or frequency. On 11/04/2018 patient was seen and examined in the intensive care unit he is alert and oriented 3 in no apparent distress NG tube is still in place Gonzalez catheter was removed patient is having multiple urination with small amount of urine, there is no fever or chills no headache or dizziness no chest pain no s hortness of breath no cough no nausea or vomiting no abdominal pain he had a small amount of liquid stool otherwise normal bowel there is no burning was urination there is frequency and urgency no hematuria. Objective - Vital Signs Vital signs: Vital Signs Temp 97.9 F 11/04/18 08:00 Pulse 85 11/04/18 13:00 Resp 16 11/04/18 13:00 BP 160/136 11/04/18 13:00 Pulse Ox 96 11/04/18 13:00 Intake & Output 11/03/18 11/04/18 11/04/18 18:59 06:59 18:59 Intake Total 1400 975 550 Output Total 1677 2080 745 Balance -277 -1105 -195 Weight 82.1 kg Intake: IV 1400 975 450 Potassium Phosphate 10 500 mmol In Sodium Chloride 0 .9% 250 ml @ 125 mls/hr IV Q2H [facility] Rx#:[id number] Sodium Chloride 0.9% 1, 900 975 450 000 ml @ 75 mls/hr IV . [id number] [facility] Rx#:[id number] Intake, IV Titration 100 Amount Piperacillin-Tazobactam 3 100 .375 gm In Sodium Chloride 0.9% 100 ml @ 25 mls/hr IVPB Q8HR [facility] Rx# :[id number] Output: Chest Tube Drainage 70 20 60 Chest Tube Mediastinal 70 20 60 Gastric Drainage 400 450 Urine 1207 1460 685 Oral Regurgitation 150 Other: Voiding Method Indwelling Catheter Indwelling Catheter Indwelling Catheter # Voids 1 1 - Exam In general patient is alert and oriented 3 in no apparent distress Head normocephalic and atraumatic Neck supple no JVD no goiter Lungs clear to auscultation bilaterally no wheezing or crackles. Chest tube in place Heart regular rate and rhythm S1-S2, no rub or gallop Abdomen distended and nontender, NG tube in place Extremities no edema no cyanosis or clubbing Neuro no gross focal deficit - Labs CBC & Chem 7: 11/04/18 05:06 11/04/18 05:06 Labs: Abnormal Lab Results - Last 24 Hours (Table) 11/04/18 11/04/18 Range/Units 05:06 05:06 RBC 2.95 L (4.30-5.90) m/uL Hgb 8.4 L (13.0-17.5) gm/dL Hct 26.8 L (39.0-53.0) % Lymphocytes # 0.9 L (1.0-4.8) k/uL Chloride 108 H (98-107) mmol/L ALT 95 H (21-72) U/L Total Protein 5.2 L (6.3-8.2) g/dL Albumin 2.9 L (3.5-5.0) g/dL Microbiology - Last 24 Hours (Table) 11/04/18 08:20 Gram Stain - Preliminary Sputum Sputum Culture - Preliminary 11/02/18 16:00 Urine Culture - Final Urine,Clean Catch Assessment and Plan Plan: 1. Coronary artery disease status post cardiac stent to the first diagonal on 10/31/2018 patient is currently on Plavix. 2. Cardiac tamponade status post coronary intervention. Patient underwent pericardial window per cardiothoracic surgery on 11/01/2018 with evacuation of 450 MLS of bloody effusion. Chest tube is in place. Cardiothoracic surgery is following. Per cardiothoracic surgery continue chest tube to waterseal. Plans for possible removal of chest tube tomorrow 11/04/2018 3. Increased shortness breath related exacerbation of COPD and tracheobronchitis. Pulmonary services are following. Patient currently on azithromycin and DuoNeb breathing treatments 4. History of previous ND with stent to the circumflex continued June 2018 5. History of essential hypertension 6. History of osteoarthritis 7. History of hyperlipidemia 8. History of right lung mass. 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 Pulmonary services are following 9. History of pneumonia 10. History of BPH 11. Chronic back pain, patient has pain stimulator 12. Previous smoker. quit in June 2018 13. Elevated liver enzymes. These do appear to be trending down we'll continue to monitor 14. Ileus with abdominal distention. NG tube in place GI services have been consulted. currently nothing by mouth. Per surgical services ileus is improving. Continue Reglan and Dulcolax 15. Frequency and urgency with urination small amount of urine will add Flomax 0.[address] prophylaxis heparin. GI prophylaxis Protonix
[2018-11-04] MEDS: HYDROcodone/APAP 10-325MG 1 EACH TAB PO PRN (16:36)
[2018-11-04 17:12] LABS: Glucose,Whole Blood 102 mg/dL (75-99)
--- NOTE | 2018-11-04 19:08 | P.PN ---
Subjective Progress Note Date: 11/04/18 Principal diagnosis: Ileus The patient is seen sitting bedside today reporting that he is passing flatus. 3 small bowel movements yesterday. NG tube currently clamped. Objective - Vital Signs Vital signs: Vital Signs Temp 97.9 F 11/04/18 08:00 Pulse 84 11/04/18 18:00 Resp 15 11/04/18 18:00 BP 171/94 11/04/18 18:00 Pulse Ox 95 11/04/18 18:00 Intake & Output 11/04/18 11/04/18 11/05/18 06:59 18:59 06:59 Intake Total 975 1025 Output Total 2080 1235 Balance -1105 -210 Weight 82.1 kg Intake: IV 975 825 Sodium Chloride 0.9% 1, 975 825 000 ml @ 75 mls/hr IV . [id number] [facility] Rx#:[id number] Intake, IV Titration 200 Amount Piperacillin-Tazobactam 3 200 .375 gm In Sodium Chloride 0.9% 100 ml @ 25 mls/hr IVPB Q8HR [facility] Rx# :[id number] Output: Chest Tube Drainage 20 50 Chest Tube Mediastinal 20 50 Gastric Drainage 450 Urine 1460 1185 Oral Regurgitation 150 Other: Voiding Method Indwelling Catheter Indwelling Catheter # Voids 1 1 - Exam On physical examination, patient appears comfortable in no apparent distress. HEAD: Normocephalic, atraumatic. EYES: No scleral icterus. No conjunctival injection. MOUTH: No lesions, tongue midline. NECK: Trachea midline, no gross abnormalities. ABDOMEN: Soft, obese, distended with positive bowel sounds appreciated. Bowel sounds are positive. No organomegaly. No guarding or rigidity. EXTREMITIES: Minimal pedal edema. SKIN: No rashes, no jaundice. NEUROLOGIC: Alert and oriented x3. No focal deficits. - Labs CBC & Chem 7: 11/04/18 05:06 11/04/18 05:06 Labs: Abnormal Lab Results - Last 24 Hours (Table) 11/04/18 11/04/18 11/04/18 Range/Units 05:06 05:06 17:03 RBC 2.95 L (4.30-5.90) m/uL Hgb 8.4 L (13.0-17.5) gm/dL Hct 26.8 L (39.0-53.0) % Lymphocytes # 0.9 L (1.0-4.8) k/uL Chloride 108 H (98-107) mmol/L POC Glucose (mg/dL) 102 H (75-99) mg/dL ALT 95 H (21-72) U/L Total Protein 5.2 L (6.3-8.2) g/dL Albumin 2.9 L (3.5-5.0) g/dL Microbiology - Last 24 Hours (Table) 11/04/18 08:20 Gram Stain - Preliminary Sputum Sputum Culture - Preliminary 11/02/18 16:00 Urine Culture - Final Urine,Clean Catch Assessment and Plan (1) Ileus Narrative/Plan: Patient with recent cardiac stent placement complicated by cardiac tamponade not and status post cardiac window who subsequently developed ileus. Currently the patient is seen lying in bed with NG tube in place and clamped today. He is reporting flatus. He had bowel movement yesterday. Current Visit: Yes Status: Acute Code(s): K56.7 - ILEUS, UNSPECIFIED SNOMED Code(s): 957641077 Plan: Supportive care Nothing by mouth NG tube in place Surgical service following appreciate the recommendations Continue to monitor with serial abdominal examinations and x-rays Aggressive electrolyte replacement Reglan and Dulcolax ordered Thank you for allowing us to participate in the care of the patient
[2018-11-04] MEDS: ATORVASTATIN 80 MG TAB PO SCH (20:54)
[2018-11-04] MEDS: MELATONIN 5 MG TABLET PO SCH (20:55)
[2018-11-05 04:51] LABS: Basophils % (A) 0 %; Eosinophils # (A) 0.1 k/uL (0-0.7); Eosinophils % (A) 2 %; HCT 29.9 % (39.0-53.0); HGB 9.8 gm/dL (13.0-17.5); Lymphocytes # (A) 0.7 k/uL (1.0-4.8); Lymphocytes % (A) 12 %; MCH 28.8 pg (25.0-35.0); MCHC 32.6 g/dL (31.0-37.0); MCV 88.1 fL (80.0-100.0); Mean Platelet Volume 6.5; Monocytes # (A) 0.3 k/uL (0-1.0); Monocytes % (A) 6 %; Neutrophils # (A) 4.6 k/uL (1.3-7.7); Neutrophils % (A) 78 %; Platelet Count 266 k/uL (150-450); RBC 3.39 m/uL (4.30-5.90); RDW 14.7 % (11.5-15.5); WBC 5.9 k/uL (3.8-10.6)
[2018-11-05 05:17] LABS: ALT 86 U/L (21-72); AST 42 U/L (17-59); Albumin 3.5 g/dL (3.5-5.0); Alkaline Phosphatase 94 U/L (38-126); Anion Gap 9 mmol/L; Blood Urea Nitrogen 12 mg/dL (9-20); Calcium 9.3 mg/dL (8.4-10.2); Carbon Dioxide 23 mmol/L (22-30); Chloride 105 mmol/L (98-107); Glucose 99 mg/dL (74-99); Magnesium 1.9 mg/dL (1.6-2.3); Potassium 3.4 mmol/L (3.5-5.1); Sodium 137 mmol/L (137-145); Total Bilirubin 0.8 mg/dL (0.2-1.3)
[2018-11-05] MEDS: SODIUM CHLORIDE 0.9% 1,000 ML IV SCH ×2 (06:22→18:01)
[2018-11-05] MEDS: MAGNESIUM SULFATE-D5W PMX 1 GM in DEXTROSE/WATER 1 100ML.BAG IVPB SCH ×2 (06:22→08:16)
[2018-11-05] MEDS: HEPARIN SODIUM,PORCINE 5,000 UNIT/ML 1 ML VIAL SQ SCH ×3 (06:23→21:16)
[2018-11-05] MEDS: METOCLOPRAMIDE 5 MG/ML 2 ML VIAL IVP SCH (06:23)
[2018-11-05] MEDS: POTASSIUM BICARBONATE/CIT AC 20 MEQ TABLET.EFF NG-TUBE SCH ×2 (06:24→08:16)
--- NOTE | 2018-11-05 07:31 | P.PN ---
Subjective Progress Note Date: 11/05/18 Principal diagnosis: Pericardial effusion This is pleasant 68-year-old gentleman who underwent percutaneous coronary intervention which was complicated by delayed pericardial effusion requiring pericardiocentesis. On follow-up with the patient today, November [id number], he seems to be stable. As a matter of fact his blood pressure and heart rate are on the higher side and we'll increase the dose of metoprolol to 25 mg by mouth 3 times a day. He continues to be on dual antiplatelet therapy along with a statin. Over the last 24 hours, there was 70 mL of IV fluid out. And the fluid seems to be more diluted and less bloody today than yesterday. He developed abdominal discomfort yesterday and was seen by bed setter as well as surgeons and an NG tube was placed. The abdominal x-ray showed possible partial small bowel obstruction. His pain today seems to be better. The hemoglobin this morning is around 9 which has improved compared to yesterday. Objective - Vital Signs Vital signs: Vital Signs Temp 99.2 F 11/05/18 04:00 Pulse 90 11/05/18 07:00 Resp 24 11/05/18 07:00 BP 105/68 11/05/18 07:00 Pulse Ox 93 L 11/05/18 07:00 Intake & Output 11/04/18 11/05/18 11/05/18 18:59 06:59 18:59 Intake Total 1025 890 75 Output Total 1235 470 50 Balance -210 420 25 Weight 82.9 kg Intake: IV 825 890 75 Piperacillin-Tazobactam 3 100 .375 gm In Sodium Chloride 0.9% 100 ml @ 25 mls/hr IVPB Q8HR [facility] Rx# :[id number] Sodium Chloride 0.9% 1, 825 790 75 000 ml @ 75 mls/hr IV . [id number] [facility] Rx#:[id number] Intake, IV Titration 200 Amount Piperacillin-Tazobactam 3 200 .375 gm In Sodium Chloride 0.9% 100 ml @ 25 mls/hr IVPB Q8HR [facility] Rx# :[id number] Output: Chest Tube Drainage 50 70 Chest Tube Mediastinal 50 70 Urine 1185 400 50 Other: Voiding Method Indwelling Catheter Urinal # Voids 1 0 1 # Bowel Movements 1 - Constitutional General appearance: Present: no acute distress - Respiratory Respiratory: bilateral: rales - Cardiovascular Rhythm: regular Heart sounds: normal: S1, S2 - Labs CBC & Chem 7: 11/05/18 04:41 11/05/18 04:41 Labs: Abnormal Lab Results - Last 24 Hours (Table) 11/04/18 11/04/18 11/05/18 Range/Units 17:03 19:15 04:41 RBC (4.30-5.90) m/uL Hgb (13.0-17.5) gm/dL Hct (39.0-53.0) % Lymphocytes # (1.0-4.8) k/uL Potassium 3.4 L 3.4 L (3.5-5.1) mmol/L POC Glucose (mg/dL) 102 H (75-99) mg/dL ALT 86 H (21-72) U/L Total Protein 6.0 L (6.3-8.2) g/dL 11/05/18 Range/Units 04:41 RBC 3.39 L (4.30-5.90) m/uL Hgb 9.8 L (13.0-17.5) gm/dL Hct 29.9 L (39.0-53.0) % Lymphocytes # 0.7 L (1.0-4.8) k/uL Potassium (3.5-5.1) mmol/L POC Glucose (mg/dL) (75-99) mg/dL ALT (21-72) U/L Total Protein (6.3-8.2) g/dL Microbiology - Last 24 Hours (Table) 11/04/18 08:20 Gram Stain - Preliminary Sputum Sputum Culture - Preliminary Assessment and Plan Assessment: Assessment #1 status post percutaneous coronary intervention #2 pericardial effusion and status post pericardiocentesis #3 partial small bowel obstruction Plan #1 continue the current medical regimen #2 increase the dose of metoprolol #3 obtain a limited echocardiogram #4 follow-up with the patient
--- NOTE | 2018-11-05 07:33 | XR ---
EXAMINATION TYPE: XR chest 2V DATE OF EXAM: 11/05/2018 COMPARISON: 10/27/2018 HISTORY: 68-year-old male postoperative pericardial window TECHNIQUE: Frontal and lateral views FINDINGS: Spinal stimulator array centered along the mid thoracic spinal canal. NG tube courses below the diaph ragm. Hyperinflation. Trace effusions. Pericardial drain is present with mild anterior pneumomediasti num versus pneumopericardium only apparent on lateral view. Some patchy anterior midlung opacity. Hea rt upper limits of normal in size. Left shoulder arthroplasty partially visualized. IMPRESSION: 1. Pericardial drain with small amount of anterior pneumomediastinum versus pneumopericardium on the lateral view. 2. COPD and trace effusions. 3. Some patchy anterior midlung opacity seen on the lateral view could represent atelectasis or small focal infiltrate.
[2018-11-05] MEDS: SYMBICORT 160-4.5 MCG INHALER INHALATION SCH ×2 (07:57→21:33)
[2018-11-05] MEDS: IPRATROPIUM-ALBUTEROL 3 ML NEB INHALATION SCH ×4 (07:57→21:33)
[2018-11-05] MEDS: PIPERACILLIN-TAZOBACTAM 3.375 GM in SODIUM CHLORIDE 0.9% 100 ML IVPB SCH ×2 (08:16→16:04)
[2018-11-05] MEDS: ISOSORBIDE MONONITRATE ER 30 MG TAB.ER.24H PO SCH (08:17)
[2018-11-05] MEDS: PANTOPRAZOLE 40 MG/10 ML VIAL IVP SCH (08:17)
[2018-11-05] MEDS: ASPIRIN 81 MG PO SCH (08:17)
[2018-11-05] MEDS: METOPROLOL TARTRATE 25 MG TAB PO SCH ×3 (08:17→21:15)
[2018-11-05] MEDS: CLOPIDOGREL 75 MG TAB PO SCH (08:17)
[2018-11-05] MEDS: HYDROcodone/APAP 10-325MG 1 EACH TAB PO PRN (08:25)
[2018-11-05] MEDS ORDERED: ALPRAZolam 0.25 MG TAB PO PRN (09:17)
--- NOTE | 2018-11-05 10:18 | P.PN ---
<Carolina Canales Gregorio - Last Filed: 11/05/18 13:47> Subjective Progress Note Date: 11/05/18 CHIEF COMPLAINT: Ileus HISTORY OF PRESENT ILLNESS: Patient remains in the ICU. Nursing reports his NG was discontinued over the weekend but the patient aspirated on a [place] (which he took laying down) and NG was re-inserted for medications. Patient denies abdominal pain. He is passing flatus and having multiple bowel movements. PHYSICAL EXAM: VITAL SIGNS: Reviewed. GENERAL: Well-developed in no acute distress. HEENT: NG tube to low intermittent suction with bilious drainage. No sclera icterus. Extraocular movements grossly intact. Moist buccal mucosa. Head is atraumatic, normocephalic. ABDOMEN: Soft. Nontender. Distention improved. Positive bowel sounds. NEUROLOGIC: Awake and alert. ASSESSMENT: 1. Postoperative ileus, clinically resolving PLAN: Discontinue reglan due to multiple bowel movements Obtain abdominal xray Consult speech for swallow eval Likely DC NG tube today and begin patient on liquids pending abdominal xray and speech eval Nurse practitioner note has been reviewed by physician. Signing provider agrees with the documented findings, assessment, and plan of care. Objective - Vital Signs Vital signs: Vital Signs Temp 97.8 F 11/05/18 08:00 Pulse 92 11/05/18 09:00 Resp 16 11/05/18 09:00 BP 148/88 11/05/18 09:00 Pulse Ox 92 L 11/05/18 09:00 Intake & Output 11/04/18 11/05/18 11/05/18 18:59 06:59 18:59 Intake Total 1025 890 425 Output Total 1235 470 200 Balance -210 420 225 Weight 82.9 kg 82.9 kg Intake: IV 825 890 425 Magnesium Sulfate-D5w Pmx 100 1 gm In Dextrose/Water 1 100ml.bag @ 100 mls/hr IVPB Q1H [facility] Rx#: [id number] Piperacillin-Tazobactam 3 100 100 .375 gm In Sodium Chloride 0.9% 100 ml @ 25 mls/hr IVPB Q8HR [facility] Rx# :[id number] Sodium Chloride 0.9% 1, 825 790 225 000 ml @ 75 mls/hr IV . [id number] [facility] Rx#:[id number] Intake, IV Titration 200 Amount Piperacillin-Tazobactam 3 200 .375 gm In Sodium Chloride 0.9% 100 ml @ 25 mls/hr IVPB Q8HR [facility] Rx# :[id number] Output: Chest Tube Drainage 50 70 Chest Tube Mediastinal 50 70 Urine 1185 400 200 Other: Voiding Method Indwelling Catheter Urinal Urinal # Voids 1 0 1 # Bowel Movements 1 2 - Labs CBC & Chem 7: 11/05/18 04:41 11/05/18 04:41 Labs: Abnormal Lab Results - Last 24 Hours (Table) 11/04/18 11/04/18 11/05/18 Range/Units 17:03 19:15 04:41 RBC (4.30-5.90) m/uL Hgb (13.0-17.5) gm/dL Hct (39.0-53.0) % Lymphocytes # (1.0-4.8) k/uL Potassium 3.4 L 3.4 L (3.5-5.1) mmol/L POC Glucose (mg/dL) 102 H (75-99) mg/dL ALT 86 H (21-72) U/L Total Protein 6.0 L (6.3-8.2) g/dL 11/05/18 Range/Units 04:41 RBC 3.39 L (4.30-5.90) m/uL Hgb 9.8 L (13.0-17.5) gm/dL Hct 29.9 L (39.0-53.0) % Lymphocytes # 0.7 L (1.0-4.8) k/uL Potassium (3.5-5.1) mmol/L POC Glucose (mg/dL) (75-99) mg/dL ALT (21-72) U/L Total Protein (6.3-8.2) g/dL Microbiology - Last 24 Hours (Table) 11/04/18 08:20 Gram Stain - Preliminary Sputum Sputum Culture - Preliminary <Shane Yuan - Last Filed: 11/05/18 16:48> Subjective As above. Patient doing well. Passing stools currently. He states his abdominal girth is back to baseline. Denies pain. Continue advancing diet. We'll sign off. Please call if needed. Objective - Vital Signs Vital signs: Vital Signs Temp 98.1 F 11/05/18 15:00 Pulse 80 11/05/18 16:00 Resp 26 H 11/05/18 16:00 BP 130/78 11/05/18 16:00 Pulse Ox 93 L 11/05/18 16:00 Intake & Output 11/04/18 11/05/18 11/05/18 18:59 06:59 18:59 Intake Total 0689 895 6821 Output Total 1235 470 440 Balance -210 420 610 Weight 82.9 kg 82.9 kg Intake: IV 373 095 7448 Magnesium Sulfate-D5w Pmx 100 1 gm In Dextrose/Water 1 100ml.bag @ 100 mls/hr IVPB Q1H [facility] Rx#: [id number] Piperacillin-Tazobactam 3 100 200 .375 gm In Sodium Chloride 0.9% 100 ml @ 25 mls/hr IVPB Q8HR [facility] Rx# :[id number] Sodium Chloride 0.9% 1, 825 790 750 000 ml @ 75 mls/hr IV . [id number] [facility] Rx#:[id number] Intake, IV Titration 200 Amount Piperacillin-Tazobactam 3 200 .375 gm In Sodium Chloride 0.9% 100 ml @ 25 mls/hr IVPB Q8HR [facility] Rx# :[id number] Output: Chest Tube Drainage 50 70 20 Chest Tube Mediastinal 50 70 20 Urine 1185 400 420 Other: Voiding Method Indwelling Catheter Urinal Urinal # Voids 1 0 1 # Bowel Movements 1 2 - Labs CBC & Chem 7: 11/05/18 04:41 11/05/18 04:41 Labs: Abnormal Lab Results - Last 24 Hours (Table) 11/04/18 11/04/18 11/05/18 Range/Units 17:03 19:15 04:41 RBC (4.30-5.90) m/uL Hgb (13.0-17.5) gm/dL Hct (39.0-53.0) % Lymphocytes # (1.0-4.8) k/uL Potassium 3.4 L 3.4 L (3.5-5.1) mmol/L POC Glucose (mg/dL) 102 H (75-99) mg/dL ALT 86 H (21-72) U/L Total Protein 6.0 L (6.3-8.2) g/dL Urine Protein (Negative) Urine Ketones (Negative) Urine Blood (Negative) Urine Mucus (None) /hpf 11/05/18 11/05/18 11/05/18 Range/Units 04:41 12:22 16:00 RBC 3.39 L (4.30-5.90) m/uL Hgb 9.8 L (13.0-17.5) gm/dL Hct 29.9 L (39.0-53.0) % Lymphocytes # 0.7 L (1.0-4.8) k/uL Potassium (3.5-5.1) mmol/L POC Glucose (mg/dL) 120 H (75-99) mg/dL ALT (21-72) U/L Total Protein (6.3-8.2) g/dL Urine Protein Trace H (Negative) Urine Ketones 1+ H (Negative) Urine Blood Trace H (Negative) Urine Mucus Rare H (None) /hpf Microbiology - Last 24 Hours (Table) 11/04/18 08:20 Gram Stain - Preliminary Sputum Sputum Culture - Preliminary Assessment and Plan (1) Ileus Current Visit: Yes Status: Acute Code(s): K56.7 - ILEUS, UNSPECIFIED SNOME D Code(s): 275666450
--- NOTE | 2018-11-05 10:19 | P.PN ---
Subjective Progress Note Date: 11/05/18 Principal diagnosis: Cardiac tamponade status post coronary intervention, coronary artery disease with history of stent placement to his circumflex coronary artery in June 2018 and to his diagonal coronary artery on 10/31/2018, history of myocardial infarction, chronic obstructive pulmonary disease with an FEV1 67% of predicted value, chronic nicotine dependence quit smoking 4 months ago, hyperlipidemia, hypertension, osteoarthritis, history of right lung mass being monitored, history of pneumonia, chronic back pain and BPH. POD #4 subxiphoid pericardial window. Postoperative ileus, unexpected but potential outcome due to his preoperative hypotension. The patient is currently sitting up to the bedside recliner chair in the intensive care unit. He is in no acute distress. He denies any complaints of pain or shortness of breath at this time. He reports that he feels tired and has not slept in the past 24 hours. Nasogastric tube remains in place to low intermittent wall suction and reports he is continuing to pass flatus. States that his abdomen feels normal today. Subxiphoid chest tube remains in place to waterseal, no air leak is present. Draining thin serosanguineous drainage. He remains afebrile and hemodynamically stable. Currently on no inotropic or pressor support. Objective - Vital Signs Vital signs: Vital Signs Temp 97.8 F 11/05/18 08:00 Pulse 92 11/05/18 09:00 Resp 16 11/05/18 09:00 BP 148/88 11/05/18 09:00 Pulse Ox 92 L 11/05/18 09:00 Intake & Output 11/04/18 11/05/18 11/05/18 18:59 06:59 18:59 Intake Total 1025 890 425 Output Total 1235 470 200 Balance -210 420 225 Weight 82.9 kg Intake: IV 825 890 425 Magnesium Sulfate-D5w Pmx 100 1 gm In Dextrose/Water 1 100ml.bag @ 100 mls/hr IVPB Q1H [facility] Rx#: [id number] Piperacillin-Tazobactam 3 100 100 .375 gm In Sodium Chloride 0.9% 100 ml @ 25 mls/hr IVPB Q8HR [facility] Rx# :[id number] Sodium Chloride 0.9% 1, 825 790 225 000 ml @ 75 mls/hr IV . [id number] [facility] Rx#:[id number] Intake, IV Titration 200 Amount Piperacillin-Tazobactam 3 200 .375 gm In Sodium Chloride 0.9% 100 ml @ 25 mls/hr IVPB Q8HR [facility] Rx# :[id number] Output: Chest Tube Drainage 50 70 Chest Tube Mediastinal 50 70 Urine 1185 400 200 Other: Voiding Method Indwelling Catheter Urinal Urinal # Voids 1 0 1 # Bowel Movements 1 2 - Constitutional General appearance: Present: cooperative, no acute distress, obese - Respiratory Details: Lung sounds with few scattered rhonchi throughout, diminished to his bilateral bases. Respirations are symmetrical and nonlabored. Loose nonproductive cough. Oxygen saturation are 97% on room air. Achieving 1250 mL on his incentive spirometry. - Cardiovascular Details: Regular rhythm and rate. S1 and S2 present, negative for S3, gallop or murmur. Bedside telemetry showing normal sinus rhythm heart rate 85. No edema present. - Gastrointestinal Gastrointestinal Comment(s): Abdomen is soft, nontender and nondistended. Active bowel sounds all 4 abdominal quadrants. No guarding or rigidity. No organomegaly. NG tube remains in place to low intermittent wall suction. - Genitourinary Genitourinary Comment(s): Voiding clear yellow urine. - Integumentary Integumentary Comment(s): Skin is warm and dry. No clubbing or cyanosis is present. Subxiphoid incision clean, dry and approximated. No drainage or redness is present. Subxiphoid chest tube in place to water seal. Draining thin serosanguineous drainage. 90 mL output in the last 24 hours. No air leak is present. Dressing is clean, dry and intact. - Neurologic Neurologic: Present: CNII-XII intact - Musculoskeletal Musculoskeletal: Present: gait normal, generalized weakness, strength equal bilaterally - Psychiatric Psychiatric: Present: A&O x's 3, appropriate affect, intact judgment & insight - Allied health notes Allied health notes reviewed: nursing - Labs CBC & Chem 7: 11/05/18 04:41 11/05/18 04:41 Labs: Abnormal Lab Results - Last 24 Hours (Table) 11/04/18 11/04/18 11/05/18 Range/Units 17:03 19:15 04:41 RBC (4.30-5.90) m/uL Hgb (13.0-17.5) gm/dL Hct (39.0-53.0) % Lymphocytes # (1.0-4.8) k/uL Potassium 3.4 L 3.4 L (3.5-5.1) mmol/L POC Glucose (mg/dL) 102 H (75-99) mg/dL ALT 86 H (21-72) U/L Total Protein 6.0 L (6.3-8.2) g/dL 11/05/18 Range/Units 04:41 RBC 3.39 L (4.30-5.90) m/uL Hgb 9.8 L (13.0-17.5) gm/dL Hct 29.9 L (39.0-53.0) % Lymphocytes # 0.7 L (1.0-4.8) k/uL Potassium (3.5-5.1) mmol/L POC Glucose (mg/dL) (75-99) mg/dL ALT (21-72) U/L Total Protein (6.3-8.2) g/dL Microbiology - Last 24 Hours (Table) 11/04/18 08:20 Gram Stain - Preliminary Sputum Sputum Culture - Preliminary - Imaging and Cardiology Chest x-ray: report reviewed, image reviewed Assessment and Plan Assessment: 1. Cardiac tamponade status post coronary intervention 2. Coronary artery disease, status post coronary artery intervention with stent placement to his diagonal coronary artery and previous stent placement to his circumflex coronary artery in June 2018 3. History of myocardial infarction 4. Chronic obstructive pulmonary disease with a FEV1 67% of predicted value 5. Chronic nicotine dependence quit smoking 4 months ago 6. Hypertension 7. Hyperlipidemia 8. Osteoarthritis 9. History of right lung mass 10. History of pneumonia 11. History of benign prostatic hypertrophy 12. Postoperative ileus, resolved Plan: 1. Remove subxiphoid chest tube today. 2. Medical management per primary care service and cardiology. Increase metoprolol to 25 mg by mouth 3 times a day per Dr. Banks. 3. Encourage use of his incentive spirometry every hour while awake. 4. Continue GI and DVT prophylaxis. 5. Discussed the importance of continued smoking cessation. 6. Wean oxygen as tolerated. Bronchodilator management per pulmonology recommendations. 7. Increase activity as tolerated. 8. NG tube management per gastroenterology and general surgery. NG tube will be discontinued today. 9. Pain management per primary care service. 10. Pericardial fluid report for cytology results show essentially peripheral blood with occasional reactive mesothelial cells. Cells cytologically diagnostic of malignant neoplasm are not identified. 11. A repeat 2-D echocardiogram has been ordered by cardiology. 12. More recommendations to follow based on patient's clinical course. Subxiphoid chest tube removed without incident. Covered with a 4 x 4 gauze, Vaseline impregnated gauze and secured with tape. Time with Patient: Greater than 30
--- NOTE | 2018-11-05 10:49 | XR ---
EXAMINATION TYPE: XR abdomen 1V DATE OF EXAM: 11/05/2018 Comparison: 11/03/2018 Clinical History: 68-year-old male ileus Findings: Pericardial drain is demonstrated. NG tube courses below the diaphragm. Spinal stimulator ray centere d along the mid thoracic spinal canal. Cholecystectomy clips. Lumbar fusion hardware with laminectomy change. Prominent small bowel loops measure up to 2.9 cm. Some scattered colonic air remains. Overal l gaseous bowel distention is decreased from prior exam. Supine imaging limited for assessment of estee e air. Impression: Overall gaseous bowel loop distention has decreased from prior exam. A few small bowel loops are bord florinda distended up to 2.9 cm. Scattered colonic gas remains. Bowel gas pattern is overall nonobstruc tive. Ileus is possible.
--- NOTE | 2018-11-05 10:59 | P.PN ---
Subjective Progress Note Date: 11/05/18 This is a 68-year-old male patient. It was discovered during patient stay that patient sees Dr. Franks as his PCP. Patient's primary doctor has been changed to Dr. Franks. Patient presented on 10/30/2018 with chest pain. Patient has past medical history of previous cardiac stents, asthma, chest pain, COPD, hyperlipidemia, arthritis, pneumonia, prostate disorder, seizure disorder, right lung mass being monitored and ex-smoker. Patient had positive stress test and cardiac catheterization was scheduled. On 10/31/2018 patient underwent a cardiac catheterization received a stent to the first diagonal branch. Patient was started on Plavix and aspirin at that time On 11/01/2018 A-team called due to declining patient status and CT of the chest was performed showing large amount of pericardial effusion consistent with hemopericardium. Patient was transferred to the intensive care unit. Patient was taken to the operating room for pericardial window by cardiothoracic surgery. Patient also having episodes of increased nausea and vomiting throughout the day. Abdominal x-ray completed showing pulmonary gassy bowel loops throughout, possible ileus 8 mm left renal calculus. NG tube was placed and GI services consulted. On 11/02/2018 patient is currently resting comfortably in bed. NG tube is in place. Chest tube also in place. Patient remains on Plavix. Patient remains in the intensive care unit. At this time patient is still complaining of some abdominal discomfort. Patient denies shortness of breath. Patient denies nausea vomiting or diarrhea. Patient denies any urinary burning or frequency On 11/03/2018 patient is currently resting in bed family at bedside. Patient st ates some improvement with abdominal pain NG tube in place. Ileus is improving per surgical services will continue to monitor. Discussed case with cardiothoracic surgery possible plans to remove chest tube tomorrow 11/04/2018. At this time patient denies chest pain or shortness of breath. Patient denies nausea vomiting or diarrhea. Patient denies any urinary burning or frequency. On 11/04/2018 patient was seen and examined in the intensive care unit he is alert and oriented 3 in no apparent distress NG tube is still in place Gonzalez catheter was removed patient is having multiple urination with small amount of urine, there is no fever or chills no headache or dizziness no chest pain no shortness of breath no cough no nausea or vomiting no abdominal pain he had a small amount of liquid stool otherwise normal bowel there is no burning was urination there is frequency and urgency no hematuria. On 11/05/2018 patient alert and oriented. Patient does appear more anxious today. Per nursing staff patient had episode where he choked on pill yesterday. Patient is about swallowing. Speech therapy has been consulted to assess swallowing. Patient also still having frequent urination. Will order urinary analysis to rule out infection. Patient also having bowel movements today. Per surgical services NG tube could be removed. This time patient denies chest pain or shortness of breath. Patient denies nausea vomiting or diarrhea. Patient denies any urinary burning. Objective - Vital Signs Vital signs: Vital Signs Temp 97.8 F 11/05/18 08:00 Pulse 77 11/05/18 10:00 Resp 15 11/05/18 10:00 BP 143/84 11/05/18 10:00 Pulse Ox 92 L 11/05/18 10:00 Intake & Output 11/04/18 11/05/18 11/05/18 18:59 06:59 18:59 Intake Total 1025 890 500 Output Total 1235 470 240 Balance -210 420 260 Weight 82.9 kg 82.9 kg Intake: IV 825 890 500 Magnesium Sulfate-D5w Pmx 100 1 gm In Dextrose/Water 1 100ml.bag @ 100 mls/hr IVPB Q1H [facility] Rx#: [id number] Piperacillin-Tazobactam 3 100 100 .375 gm In Sodium Chloride 0.9% 100 ml @ 25 mls/hr IVPB Q8HR [facility] Rx# :[id number] Sodium Chloride 0.9% 1, 825 790 300 000 ml @ 75 mls/hr IV . [id number] [facility] Rx#:[id number] Intake, IV Titration 200 Amount Piperacillin-Tazobactam 3 200 .375 gm In Sodium Chloride 0.9% 100 ml @ 25 mls/hr IVPB Q8HR [facility] Rx# :[id number] Output: Chest Tube Drainage 50 70 20 Chest Tube Mediastinal 50 70 20 Urine 1185 400 220 Other: Voiding Method Indwelling Catheter Urinal Urinal # Voids 1 0 1 # Bowel Movements 1 2 - Exam Head normocephalic Neck supple Lungs clear to auscultation bilaterally no wheezing or crackles. Chest tube in place Heart regular rate and rhythm S1-S2, no rub or gallop Abdomen distended and nontender, NG tube in place Extremities no edema Neuro alert and orientated to 3 - Labs CBC & Chem 7: 11/05/18 04:41 11/05/18 04:41 Labs: Abnormal Lab Results - Last 24 Hours (Table) 11/04/18 11/04/18 11/05/18 Range/Units 17:03 19:15 04:41 RBC (4.30-5.90) m/uL Hgb (13.0-17.5) gm/dL Hct (39.0-53.0) % Lymphocytes # (1.0-4.8) k/uL Potassium 3.4 L 3.4 L (3.5-5.1) mmol/L POC Glucose (mg/dL) 102 H (75-99) mg/dL ALT 86 H (21-72) U/L Total Protein 6.0 L (6.3-8.2) g/dL 11/05/18 Range/Units 04:41 RBC 3.39 L (4.30-5.90) m/uL Hgb 9.8 L (13.0-17.5) gm/dL Hct 29.9 L (39.0-53.0) % Lymphocytes # 0.7 L (1.0-4.8) k/uL Potassium (3.5-5.1) mmol/L POC Glucose (mg/dL) (75-99) mg/dL ALT (21-72) U/L Total Protein (6.3-8.2) g/dL Microbiology - Last 24 Hours (Table) 11/04/18 08:20 Gram Stain - Preliminary Sputum Sputum Culture - Preliminary Assessment and Plan Assessment: 1. Coronary artery disease status post cardiac stent to the first diagonal on 10/31/2018 patient is currently on Plavix. 2. Cardiac tamponade status post coronary intervention. Patient underwent pericardial window per cardiothoracic surgery on 11/01/2018 with evacuation of 450 MLS of bloody effusion. Chest tube is in place. Cardiothoracic surgery is following. Per cardiothoracic surgery continue chest tube to waterseal. Cytology for pericardial fluid showing essentially peripheral blood with occasional reactive mesothelial cells. Cell cytology diagnostic of malignancy neoplasm are not identified. Plans for possible removal of chest tube today 11/05/2018 3. Increased shortness breath related exacerbation of COPD and tracheobronchitis. Pulmonary services are following. Patient currently on azithromycin and DuoNeb breathing treatments 4. History of previous CT with stent to the circumflex continued June 2018 5. History of essential hypertension 6. History of osteoarthritis 7. History of hyperlipidemia 8. History of right lung mass. 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 Pulmonary services are following 9. History of pneumonia 10. History of BPH 11. Chronic back pain, patient has pain stimulator 12. Previous smoker. quit in June 2018 13. Elevated liver enzymes. These do appear to be trending down we'll continue to monitor 14. Ileus with abdominal distention. NG tube in place GI services have been consulted. currently nothing by mouth. Per surgical services ileus is improving. Continue Reglan and Dulcolax 15. Frequency and urgency with urination small amount of urine will add Flomax 0.4 mg once daily. Urinary analysis added 16. Episode of difficulty swallowing. Speech eval consulted to assess swallow 17. Increased anxiety. Xanax added DVT prophylaxis heparin. GI prophylaxis Protonix I performed an examination of the patient and discussed their management with the Nurse Practitioner. I have reviewed the Nurse Practitioner's notes and agree with the documented findings and plan of care
[2018-11-05 12:34] LABS: Glucose,Whole Blood 120 mg/dL (75-99)
--- NOTE | 2018-11-05 15:57 | P.PN ---
Subjective Progress Note Date: 11/05/18 On today's evaluation of 11/05/2018, the patient is doing well and the patient has no specific complaints. In terms of his [place] pulmonary status, the patient has still his pericardial chest tube in place and output is minimal and the plan is to remove the chest tube today knowing that the output has been minimal. Cardiothoracic surgeries on the case and the patient a pericardial window for a post cardiac catheterization/stenting . He is doing well and he is not having any shortness of breath for now. No cough. No sputum production. No chest tightness been no wheezing. No angina. He remains hemodynamically stable. He has chronic issues with pain and for that reason the patient was taking narcotics on outpatient basis. During his current hospital stay developed bowel obstruction/ileus. He still has an NG tube in place and follow- up chest x-ray and abdominal film from today shows some nonspecific gas pattern and he was able to produce adequate amount of liquidy stool for the past 24 hours and for that reason I made recommendations to remove the NG tube after checking that the patient has adequate swallow. His abdomen is nondistended. Has no abdominal pain. No nausea. No vomiting. Output from the NG tube has been minimal for now. No other significant events otherwise for now. The patient has a white cell count of 5.9 with a hemoglobin 9.8. He has IV with normal state rate of 75 mL an hour. Objective - Vital Signs Vital signs: Vital Signs Temp 98.1 F 11/05/18 15:00 Pulse 81 11/05/18 15:49 Resp 20 11/05/18 15:00 BP 122/66 11/05/18 15:00 Pulse Ox 91 L 11/05/18 15:00 Intake & Output 11/04/18 11/05/18 11/05/18 18:59 06:59 18:59 Intake Total 1025 890 875 Output Total 1235 470 340 Balance -210 420 535 Weight 82.9 kg 82.9 kg Intake: IV 825 890 875 Magnesium Sulfate-D5w Pmx 100 1 gm In Dextrose/Water 1 100ml.bag @ 100 mls/hr IVPB Q1H [facility] Rx#: [id number] Piperacillin-Tazobactam 3 100 100 .375 gm In Sodium Chloride 0.9% 100 ml @ 25 mls/hr IVPB Q8HR [facility] Rx# :[id number] Sodium Chloride 0.9% 1, 825 790 675 000 ml @ 75 mls/hr IV . [id number] [facility] Rx#:[id number] Intake, IV Titration 200 Amount Piperacillin-Tazobactam 3 200 .375 gm In Sodium Chloride 0.9% 100 ml @ 25 mls/hr IVPB Q8HR [facility] Rx# :[id number] Output: Chest Tube Drainage 50 70 20 Chest Tube Mediastinal 50 70 20 Urine 1185 400 320 Other: Voiding Method Indwelling Catheter Urinal Urinal # Voids 1 0 1 # Bowel Movements 1 2 - Exam - Constitutional General appearance: Present: cooperative, no acute distress, obese - Respiratory Details: Lung sounds with few scattered rhonchi throughout, diminished to his bilateral bases. Respirations are symmetrical and nonlabored. Loose nonproductive cough. Oxygen saturation are 97% on room air. Achieving 1250 mL on his incentive spirometry. - Cardiovascular Details: Regular rhythm and rate. S1 and S2 present, negative for S3, gallop or murmur. Bedside telemetry showing normal sinus rhythm heart rate 85. No edema present. - Gastrointestinal Gastrointestinal Comment(s): Abdomen is soft, nontender and nondistended. Active bowel sounds all 4 abdominal quadrants. No guarding or rigidity. No organomegaly. NG tube remains in place to low intermittent wall suction. - Genitourinary Genitourinary Comment(s): Voiding clear yellow urine. - Integumentary Integumentary Comment(s): Skin is warm and dry. No clubbing or cyanosis is present. Subxiphoid incision clean, dry and approximated. No drainage or redness is present. Subxiphoid chest tube in place to water seal. Draining thin serosanguineous drainage. 90 mL output in the last 24 hours. No air leak is present. Dressing is clean, dry and intact. - Neurologic Neurologic: Present: CNII-XII intact - Musculoskeletal Musculoskeletal: Present: gait normal, generalized weakness, strength equal bilaterally - Psychiatric Psychiatric: Present: A&O x's 3, appropriate affect, intact judgment & insight - Labs CBC & Chem 7: 11/05/18 04:41 11/05/18 04:41 Labs: Abnormal Lab Results - Last 24 Hours (Table) 11/04/18 11/04/18 11/05/18 Range/Units 17:03 19:15 04:41 RBC (4.30-5.90) m/uL Hgb (13.0-17.5) gm/dL Hct (39.0-53.0) % Lymphocytes # (1.0-4.8) k/uL Potassium 3.4 L 3.4 L (3.5-5.1) mmol/L POC Glucose (mg/dL) 102 H (75-99) mg/dL ALT 86 H (21-72) U/L Total Protein 6.0 L (6.3-8.2) g/dL 11/05/18 11/05/18 Range/Units 04:41 12:22 RBC 3.39 L (4.30-5.90) m/uL Hgb 9.8 L (13.0-17.5) gm/dL Hct 29.9 L (39.0-53.0) % Lymphocytes # 0.7 L (1.0-4.8) k/uL Potassium (3.5-5.1) mmol/L POC Glucose (mg/dL) 120 H (75-99) mg/dL ALT (21-72) U/L Total Protein (6.3-8.2) g/dL Microbiology - Last 24 Hours (Table) 11/04/18 08:20 Gram Stain - Preliminary Sputum Sputum Culture - Preliminary Assessment and Plan Plan: 1 cardiac tamponade post cardiac catheterization and stenting. The patient is post pericardial window and cardiac tube insertion and the patient is postop day number 4. The output from the tube is minimal and the patient is doing extr mack well for now. The plan is to remove the tube today. 2 coronary artery disease post cardiac catheter insertion and stenting of the diagonal branch of coronary artery and the patient has had previous stenting of the circumflex back in June 2018 3 COPD mild inactive in stable with FEV1 of 67% of predicted 4 history of smoking, quit 4 months ago 5 ileus/bowel obstruction, recovered and the patient has adequate bowel activity and NG tube will be removed today 6 hypertension 7 hyperlipidemia 8 BPH 9 pulmonary lesion/nodule, based on a CAT scan of the chest that was done on 10/29/2018 this seemed to be a pleural-based infiltrate in the right upper lobe unchanged compared to the previous examination of August 2018 and follow-up was recommended. Plan Remove the chest tube. Remove the NG tube. Monitor bowel activity. Monitor respiratory status. It using incentive spirometer. Hemodynamically stable. IV antibiotics with Zosyn and this is an empiric antibiotic coverage for any potential pneumonia/aspiration. Resume Symbicort. Continue DuoNeb nebulized treatments around the clock. We'll keep him in ICU for another 24 hours and he may leave the ICU by tomorrow.
[2018-11-05 16:38] LABS: Appearance,Urine Clear (Clear); Bilirubin,Urine Negative (Negative); Blood,Urine Trace (Negative); Color,Urine Light Yellow; Glucose,Urine (UA) Negative (Negative); Ketones,Urine 1+ (Negative); Leukocyte Esterase,Urine Negative (Negative); Mucus,Urine Rare /hpf; Nitrite,Urine Negative (Negative); PH, Urine 7.5 (5.0-8.0); Protein,Urine Trace (Negative); RBC,Urine 5 /hpf (0-5); Specific Gravity,Urine 1.013 (1.001-1.035); Squamous Epithelial Cell,Urine <1 /hpf (0-4); Urobilinogen,Urine <2.0 mg/dL (<2.0); WBC,Urine 3 /hpf (0-5)
[2018-11-05] MEDS: TAMSULOSIN 0.4 MG CAP.ER.24H PO SCH (17:58)
--- NOTE | 2018-11-05 18:28 | ECHOF ---
Referral Reason:pericardial effusion MEASUREMENTS -------- HEIGHT: 167.6 cm WEIGHT: 82.6 kg BP: IVSd: 1.1 cm (0.6 - 1.1) LVIDd: 4.3 cm (3.9 - 5.3) LVPWd: 1.2 cm (0.6 - 1.1) IVSs: 1.5 cm LVIDs: 1.6 cm LVPWs: 1.5 cm FINDINGS -------- Sinus rhythm. Limited Study The left ventricular size is normal. Left ventricular wall thickness is normal. Overall left vent ricular systolic function is normal with, an EF between 55 - 60 %. There is no pericardial effusion. CONCLUSIONS -------- 1. Sinus rhythm. 2. Limited Study 3. The left ventricular size is normal. 4. Left ventricular wall thickness is normal. 5. Overall left ventricular systolic function is normal with, an EF between 55 - 60 %. 6. There is no pericardial effusion. SIZE MIXER: Pamela Rivas [facility]
[2018-11-05] MEDS: ATORVASTATIN 80 MG TAB PO SCH (21:15)
[2018-11-05] MEDS: MELATONIN 5 MG TABLET PO SCH (21:15)
[2018-11-06] MEDS: PIPERACILLIN-TAZOBACTAM 3.375 GM in SODIUM CHLORIDE 0.9% 100 ML IVPB SCH (00:10)
[2018-11-06 05:45] LABS: Glucose,Whole Blood 106 mg/dL (75-99)
[2018-11-06 06:53] LABS: Basophils % (A) 0 %; Eosinophils # (A) 0.2 k/uL (0-0.7); Eosinophils % (A) 4 %; HCT 30.3 % (39.0-53.0); Lymphocytes # (A) 0.9 k/uL (1.0-4.8); Lymphocytes % (A) 18 %; MCH 28.8 pg (25.0-35.0); MCHC 32.8 g/dL (31.0-37.0); MCV 87.7 fL (80.0-100.0); Mean Platelet Volume 6.7; Monocytes # (A) 0.4 k/uL (0-1.0); Monocytes % (A) 7 %; Neutrophils # (A) 3.3 k/uL (1.3-7.7); Neutrophils % (A) 68 %; Platelet Count 310 k/uL (150-450); RBC 3.46 m/uL (4.30-5.90); RDW 14.5 % (11.5-15.5); WBC 4.9 k/uL (3.8-10.6)
[2018-11-06 07:06] LABS: Anion Gap 8 mmol/L; Blood Urea Nitrogen 8 mg/dL (9-20); Carbon Dioxide 25 mmol/L (22-30); Chloride 105 mmol/L (98-107); Glucose 98 mg/dL (74-99); Potassium 3.3 mmol/L (3.5-5.1); Sodium 138 mmol/L (137-145)
[2018-11-06] MEDS: HEPARIN SODIUM,PORCINE 5,000 UNIT/ML 1 ML VIAL SQ SCH ×3 (07:07→21:51)
[2018-11-06] MEDS ORDERED: Potassium Replacement Protocol 1 EACH MISC MISCELLANE PRN ×2 (07:09→21:45)
--- NOTE | 2018-11-06 07:33 | P.PN ---
Subjective Progress Note Date: 11/06/18 Principal diagnosis: Pericardial effusion This is pleasant 68-year-old gentleman who underwent percutaneous coronary intervention which was complicated by delayed pericardial effusion requiring pericardiocentesis. On follow-up with the patient today, November 062018, he seems to be asymptomatic from the cardiovascular standpoint of view. He has been struggling with diarrhea this morning. The pericardial tube was taken out yesterday. A limited echocardiogram was performed and showed no evidence of any residual pericardial effusion. The NG tube was taken out yesterday as well. Overall the patient is doing better. Possibly he can be transferred out of the ICU. Objective - Vital Signs Vital signs: Vital Signs Temp 97.9 F 11/06/18 04:00 Pulse 89 11/06/18 06:00 Resp 18 11/06/18 06:00 BP 163/93 11/06/18 06:00 Pulse Ox 95 11/06/18 06:00 Intake & Output 11/05/18 11/06/18 11/06/18 18:59 06:59 18:59 Intake Total 1200 1000 Output Total 480 1110 Balance 720 -110 Weight 82.9 kg Intake: IV 1200 1000 Magnesium Sulfate-D5w Pmx 100 1 gm In Dextrose/Water 1 100ml.bag @ 100 mls/hr IVPB Q1H [facility] Rx#: [id number] Piperacillin-Tazobactam 3 200 100 .375 gm In Sodium Chloride 0.9% 100 ml @ 25 mls/hr IVPB Q8HR [facility] Rx# :[id number] Sodium Chloride 0.9% 1, 900 900 000 ml @ 75 mls/hr IV . [id number] [facility] Rx#:[id number] Output: Chest Tube Drainage 20 Chest Tube Mediastinal 20 Urine 460 1110 Other: Voiding Method Urinal Urinal # Voids 1 # Bowel Movements 1 2 - Constitutional General appearance: Present: no acute distress - Respiratory Respiratory: bilateral: CTA - Cardiovascular Rhythm: regular Heart sounds: normal: S1, S2 - Labs CBC & Chem 7: 11/06/18 06:40 11/06/18 06:40 Labs: Abnormal Lab Results - Last 24 Hours (Table) 11/05/18 11/05/18 11/06/18 Range/Units 12:22 16:00 05:34 RBC (4.30-5.90) m/uL Hgb (13.0-17.5) gm/dL Hct (39.0-53.0) % Lymphocytes # (1.0-4.8) k/uL Potassium (3.5-5.1) mmol/L BUN (9-20) mg/dL POC Glucose (mg/dL) 120 H 106 H (75-99) mg/dL Urine Protein Trace H (Negative) Urine Ketones 1+ H (Negative) Urine Blood Trace H (Negative) Urine Mucus Rare H (None) /hpf 11/06/18 11/06/18 Range/Units 06:40 06:40 RBC 3.46 L (4.30-5.90) m/uL Hgb 10.0 L (13.0-17.5) gm/dL Hct 30.3 L (39.0-53.0) % Lymphocytes # 0.9 L (1.0-4.8) k/uL Potassium 3.3 L (3.5-5.1) mmol/L BUN 8 L (9-20) mg/dL POC Glucose (mg/dL) (75-99) mg/dL Urine Protein (Negative) Urine Ketones (Negative) Urine Blood (Negative) Urine Mucus (None) /hpf Microbiology - Last 24 Hours (Table) 11/05/18 16:00 Urine Culture - Preliminary Urine,Voided Assessment and Plan Assessment: Assessment #1 status post percutaneous coronary intervention #2 pericardial effusion and status post pericardiocentesis #3 partial small bowel obstruction Plan #1 continue the current medical regimen #2 patient can be transferred out of the ICU.
[2018-11-06] MEDS: IPRATROPIUM-ALBUTEROL 3 ML NEB INHALATION SCH ×4 (08:41→18:54)
[2018-11-06] MEDS: SYMBICORT 160-4.5 MCG INHALER INHALATION SCH ×2 (08:41→18:54)
--- NOTE | 2018-11-06 09:29 | XR ---
EXAMINATION TYPE: XR chest 1V portable DATE OF EXAM: 11/06/2018 COMPARISON: 11/05/2018 HISTORY: Postoperative pericardial window TECHNIQUE: Single frontal view of the chest is obtained. FINDINGS: Enteric tube is been removed in the interim. Spinal stimulator overlies the mediastinum. M ediastinal drains appear to have been removed in the interim. Left humeral arthroplasties partially v isualized. Increased density in the right middle lobe is again seen in the right infrahilar region si milar to the prior. Trace right pleural effusion remains minimal blunting the right costophrenic angl e. Remainder the lungs are clear. No pneumothorax. No pulmonary vascular congestion. Cardia mediastin al silhouette is stable. IMPRESSION: Similar-appearing trace right pleural effusion and right middle lobe airspace disease. T race amount of pneumomediastinum seen on the prior is not seen on today's examination.
[2018-11-06] MEDS: ISOSORBIDE MONONITRATE ER 30 MG TAB.ER.24H PO SCH (09:33)
[2018-11-06] MEDS: METOPROLOL TARTRATE 25 MG TAB PO SCH ×3 (09:33→21:51)
[2018-11-06] MEDS: PANTOPRAZOLE 40 MG/10 ML VIAL IVP SCH (09:34)
[2018-11-06] MEDS: POTASSIUM CHLORIDE ER 20 MEQ TAB.ER PO SCH ×2 (09:34→09:37)
[2018-11-06] MEDS: CLOPIDOGREL 75 MG TAB PO SCH (09:34)
[2018-11-06] MEDS: ASPIRIN 81 MG PO SCH (09:34)
[2018-11-06] MEDS: SODIUM CHLORIDE 0.9% 1,000 ML IV SCH ×2 (09:34→21:52)
--- NOTE | 2018-11-06 11:11 | P.PN ---
Subjective Progress Note Date: 11/06/18 Principal diagnosis: Cardiac tamponade status post coronary intervention, coronary artery disease with history of stent placement to his circumflex coronary artery in June 2018 and to his diagonal coronary artery on 10/31/2018, history of myocardial infarction, chronic obstructive pulmonary disease with an FEV1 67% of predicted value, chronic nicotine dependence quit smoking 4 months ago, hyperlipidemia, hypertension, osteoarthritis, history of right lung mass being monitored, history of pneumonia, chronic back pain and BPH. POD #5 subxiphoid pericardial window Postoperative ileus, unexpected but potential outcome due to his preoperative hypotension. The patient is currently sitting up in a chair in no acute distress. He has had episodes of dark diarrhea. Denies pain or shortness of breath. Mediastinal chest tube was discontinued yesterday. Repeat limited echo demonstrates no pericardial effusion. Objective - Vital Signs Vital signs: Vital Signs Temp 97.8 F 11/06/18 08:00 Pulse 81 11/06/18 10:54 Resp 15 11/06/18 10:00 BP 161/91 11/06/18 10:00 Pulse Ox 96 11/06/18 10:00 Intake & Output 11/05/18 11/06/18 11/06/18 18:59 06:59 18:59 Intake Total 1200 1000 150 Output Total 480 1110 250 Balance 720 -110 -100 Weight 82.9 kg 82.9 kg Intake: IV 1200 1000 150 Magnesium Sulfate-D5w Pmx 100 1 gm In Dextrose/Water 1 100ml.bag @ 100 mls/hr IVPB Q1H [facility] Rx#: [id number] Piperacillin-Tazobactam 3 200 100 .375 gm In Sodium Chloride 0.9% 100 ml @ 25 mls/hr IVPB Q8HR [facility] Rx# :[id number] Sodium Chloride 0.9% 1, 900 900 150 000 ml @ 75 mls/hr IV . [id number] [facility] Rx#:[id number] Output: Chest Tube Drainage 20 Chest Tube Mediastinal 20 Urine 460 1110 250 Other: Voiding Method Urinal Urinal # Voids 1 # Bowel Movements 1 2 3 - Constitutional General appearance: Present: cooperative, no acute distress - Respiratory Details: Lungs sounds diminished with faint expiratory wheezes heard bilaterally. Respirations even, nonlabored. Currently on room air with oxygen saturation 95%. Able to achieve 2000 mL on his incentive spirometry. - Cardiovascular Details: S1, S2 present. Regular rate and rhythm, sinus rhythm on telemetry. Palpable peripheral pulses bilaterally. No edema present. No calf pain or tenderness noted. - Gastrointestinal Gastrointestinal Comment(s): Abdomen soft, tender, nondistended. Active bowel sounds present 4 quadrants. Tolerating diet. Positive black liquid stool. - Genitourinary Genitourinary Comment(s): Continues to void. - Integumentary Integumentary Comment(s): Skin is warm and dry with evidence of good perfusion. Subxiphoid incision is clean, dry, well approximated without drainage or redness. - Neurologic Neurologic: Present: CNII-XII intact - Musculoskeletal Musculoskeletal: Present: strength equal bilaterally - Psychiatric Psychiatric: Present: A&O x's 3, appropriate affect, intact judgment & insight - Allied health notes Allied health notes reviewed: nursing - Labs CBC & Chem 7: 11/06/18 06:40 11/06/18 06:40 Labs: Abnormal Lab Results - Last 24 Hours (Table) 11/05/18 11/05/18 11/06/18 Range/Units 12:22 16:00 05:34 RBC (4.30-5.90) m/uL Hgb (13.0-17.5) gm/dL Hct (39.0-53.0) % Lymphocytes # (1.0-4.8) k/uL Potassium (3.5-5.1) mmol/L BUN (9-20) mg/dL POC Glucose (mg/dL) 120 H 106 H (75-99) mg/dL Urine Protein Trace H (Negative) Urine Ketones 1+ H (Negative) Urine Blood Trace H (Negative) Urine Mucus Rare H (None) /hpf 11/06/18 11/06/18 Range/Units 06:40 06:40 RBC 3.46 L (4.30-5.90) m/uL Hgb 10.0 L (13.0-17.5) gm/dL Hct 30.3 L (39.0-53.0) % Lymphocytes # 0.9 L (1.0-4.8) k/uL Potassium 3.3 L (3.5-5.1) mmol/L BUN 8 L (9-20) mg/dL POC Glucose (mg/dL) (75-99) mg/dL Urine Protein (Negative) Urine Ketones (Negative) Urine Blood (Negative) Urine Mucus (None) /hpf Microbiology - Last 24 Hours (Table) 11/05/18 16:00 Urine Culture - Preliminary Urine,Voided - Imaging and Cardiology Chest x-ray: report reviewed, image reviewed Assessment and Plan Assessment: 1. Cardiac tamponade status post coronary intervention, status post pericardial window 2. Coronary artery disease, status post coronary artery intervention with stent placement to his diagonal coronary artery and previous stent placement to his circumflex coronary artery in June 2018 3. History of myocardial infarction 4. Chronic obstructive pulmonary disease with a FEV1 67% of predicted value 5. Chronic nicotine dependence quit smoking 4 months ago 6. Hypertension 7. Hyperlipidemia 8. Osteoarthritis 9. History of right lung mass 10. History of pneumonia 11. History of benign prostatic hypertrophy 12. Postoperative ileus, resolved Plan: 1. Subxiphoid chest tube discontinued yesterday with follow-up echo reporting no pericardial effusion. 2. Medical management per primary care service and cardiology. 3. Encourage use of his incentive spirometry every hour while awake. 4. Continue GI and DVT prophylaxis. 5. Discussed the importance of continued smoking cessation. 6. Bronchodilator management per pulmonology recommendations. 7. Increase activity as tolerated. 8. Pain management per primary care service. 9. Will sign off case. Please reconsult us for further needs. Time with Patient: Greater than 30
--- NOTE | 2018-11-06 12:07 | P.PN ---
Subjective Progress Note Date: 11/06/18 This is a 68-year-old male patient. It was discovered during patient stay that patient sees Dr. Franks as his PCP. Patient's primary doctor has been changed to Dr. Franks. Patient presented on 10/30/2018 with chest pain. Patient has past medical history of previous cardiac stents, asthma, chest pain, COPD, hyperlipidemia, arthritis, pneumonia, prostate disorder, seizure disorder, right lung mass being monitored and ex-smoker. Patient had positive stress test and cardiac catheterization was scheduled. On 10/31/2018 patient underwent a cardiac catheterization received a stent to the first diagonal branch. Patient was started on Plavix and aspirin at that time On 11/01/2018 A-team called due to declining patient status and CT of the chest was performed showing large amount of pericardial effusion consistent with hemopericardium. Patient was transferred to the intensive care unit. Patient was taken to the operating room for pericardial window by cardiothoracic surgery. Patient also having episodes of increased nausea and vomiting throughout the day. Abdominal x-ray completed showing pulmonary gassy bowel loops throughout, possible ileus 8 mm left renal calculus. NG tube was placed and GI services consulted. On 11/02/2018 patient is currently resting comfortably in bed. NG tube is in place. Chest tube also in place. Patient remains on Plavix. Patient remains in the intensive care unit. At this time patient is still complaining of some abdominal discomfort. Patient denies shortness of breath. Patient denies nausea vomiting or diarrhea. Patient denies any urinary burning or frequency On 11/03/2018 patient is currently resting in bed family at bedside. Patient st ates some improvement with abdominal pain NG tube in place. Ileus is improving per surgical services will continue to monitor. Discussed case with cardiothoracic surgery possible plans to remove chest tube tomorrow 11/04/2018. At this time patient denies chest pain or shortness of breath. Patient denies nausea vomiting or diarrhea. Patient denies any urinary burning or frequency. On 11/04/2018 patient was seen and examined in the intensive care unit he is alert and oriented 3 in no apparent distress NG tube is still in place Gonzalez catheter was removed patient is having multiple urination with small amount of urine, there is no fever or chills no headache or dizziness no chest pain no shortness of breath no cough no nausea or vomiting no abdominal pain he had a small amount of liquid stool otherwise normal bowel there is no burning was urination there is frequency and urgency no hematuria. On 11/05/2018 patient alert and oriented. Patient does appear more anxious today. Per nursing staff patient had episode where he choked on pill yesterday. Patient is about swallowing. Speech therapy has been consulted to assess swallowing. Patient also still having frequent urination. Will order urinary analysis to rule out infection. Patient also having bowel movements today. Per surgical services NG tube could be removed. This time patient denies chest pain or shortness of breath. Patient denies nausea vomiting or diarrhea. Patient denies any urinary burning. On 11/06/2018 patient is currently resting comfortably in bed. NG tube and chest tube have been removed. At this time patient is complaining of loose stools. Will order C. diff sample. Patient denies chest pain or shortness of breath. Patient denies nausea vomiting or diarrhea. Patient denies any urinary burning or frequency Objective - Vital Signs Vital signs: Vital Signs Temp 97.8 F 11/06/18 08:00 Pulse 82 11/06/18 11:06 Resp 18 11/06/18 11:00 BP 166/89 11/06/18 11:00 Pulse Ox 95 11/06/18 11:00 Intake & Output 11/05/18 11/06/18 11/06/18 18:59 06:59 18:59 Intake Total 1200 1000 375 Output Total 480 1110 400 Balance 720 -110 -25 Weight 82.9 kg 82.9 kg Intake: IV 1200 1000 375 Magnesium Sulfate-D5w Pmx 100 1 gm In Dextrose/Water 1 100ml.bag @ 100 mls/hr IVPB Q1H [facility] Rx#: [id number] Piperacillin-Tazobactam 3 200 100 .375 gm In Sodium Chloride 0.9% 100 ml @ 25 mls/hr IVPB Q8HR [facility] Rx# :[id number] Sodium Chloride 0.9% 1, 900 900 375 000 ml @ 75 mls/hr IV . [id number] [facility] Rx#:[id number] Output: Chest Tube Drainage 20 Chest Tube Mediastinal 20 Urine 460 1110 400 Other: Voiding Method Urinal Urinal Urinal # Voids 1 # Bowel Movements 1 2 1 - Exam Head normocephalic Neck supple Lungs clear to auscultation bilaterally no wheezing or crackles. Chest tube in place Heart regular rate and rhythm S1-S2, no rub or gallop Abdomen distended and nontender, NG tube in place Extremities no edema Neuro alert and orientated to 3 - Labs CBC & Chem 7: 11/06/18 06:40 11/06/18 06:40 Labs: Abnormal Lab Results - Last 24 Hours (Table) 11/05/18 11/05/18 11/06/18 Range/Units 12:22 16:00 05:34 RBC (4.30-5.90) m/uL Hgb (13.0-17.5) gm/dL Hct (39.0-53.0) % Lymphocytes # (1.0-4.8) k/uL Potassium (3.5-5.1) mmol/L BUN (9-20) mg/dL POC Glucose (mg/dL) 120 H 106 H (75-99) mg/dL Urine Protein Trace H (Negative) Urine Ketones 1+ H (Negative) Urine Blood Trace H (Negative) Urine Mucus Rare H (None) /hpf 11/06/18 11/06/18 Range/Units 06:40 06:40 RBC 3.46 L (4.30-5.90) m/uL Hgb 10.0 L (13.0-17.5) gm/dL Hct 30.3 L (39.0-53.0) % Lymphocytes # 0.9 L (1.0-4.8) k/uL Potassium 3.3 L (3.5-5.1) mmol/L BUN 8 L (9-20) mg/dL POC Glucose (mg/dL) (75-99) mg/dL Urine Protein (Negative) Urine Ketones (Negative) Urine Blood (Negative) Urine Mucus (None) /hpf Microbiology - Last 24 Hours (Table) 11/04/18 08:20 Gram Stain - Final Sputum Sputum Culture - Final 11/05/18 16:00 Urine Culture - Preliminary Urine,Voided Assessment and Plan Assessment: 1. Coronary artery disease status post cardiac stent to the first diagonal on 10/31/2018 patient is currently on Plavix. 2. Cardiac tamponade status post coronary intervention. Patient underwent pericardial window per cardiothoracic surgery on 11/01/2018 with evacuation of 450 MLS of bloody effusion. Chest tube is in place. Cardiothoracic surgery is following. Per cardiothoracic surgery continue chest tube to waterseal. Cytology for pericardial fluid showing essentially peripheral blood with occasional reactive mesothelial cells. Cell cytology diagnostic of malignancy neoplasm are not identified. Plans for possible removal of chest tube today 11/05/2018. Patient is currently postop day for 3. Increased shortness breath related exacerbation of COPD and tracheobronchitis. Pulmonary services are following. Patient currently on azithromycin and DuoNeb breathing treatments 4. History of previous NE with stent to the circumflex continued June 2018 5. History of essential hypertension 6. History of osteoarthritis 7. History of hyperlipidemia 8. History of right lung mass. 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 Pulmonary services are following 9. History of pneumonia 10. History of BPH 11. Chronic back pain, patient has pain stimulator 12. Previous smoker. quit in June 2018 13. Elevated liver enzymes. These do appear to be trending down we'll continue to monitor 14. Ileus with abdominal distention. NG tube in place GI services have been consulted. currently nothing by mouth. Per surgical services ileus is improving. Continue Reglan and Dulcolax 15. Frequency and urgency with urination small amount of urine will add Flomax 0.4 mg once daily. Urinary analysis added 16. Episode of difficulty swallowing. Speech eval consulted to assess swallow 17. Increased anxiety. Xanax added 18. Diarrhea. C. diff sample ordered DVT prophylaxis heparin. GI prophylaxis Protonix I performed an examination of the patient and discussed their management with the Nurse Practitioner. I have reviewed the Nurse Practitioner's notes and agree with the documented findings and plan of care
--- NOTE | 2018-11-06 13:04 | P.PN ---
Subjective Progress Note Date: 11/06/18 On today's evaluation of 11/05/2018, the patient is doing well and the patient has no specific complaints. In terms of his [place] pulmonary status, the patient has still his pericardial chest tube in place and output is minimal and the plan is to remove the chest tube today knowing that the output has been minimal. Cardiothoracic surgeries on the case and the patient a pericardial window for a post cardiac catheterization/stenting . He is doing well and he is not having any shortness of breath for now. No cough. No sputum production. No chest tightness been no wheezing. No angina. He remains hemodynamically stable. He has chronic issues with pain and for that reason the patient was taking narcotics on outpatient basis. During his current hospital stay developed bowel obstruction/ileus. He still has an NG tube in place and follow- up chest x-ray and abdominal film from today shows some nonspecific gas pattern and he was able to produce adequate amount of liquidy stool for the past 24 hours and for that reason I made recommendations to remove the NG tube after checking that the patient has adequate swallow. His abdomen is nondistended. Has no abdominal pain. No nausea. No vomiting. Output from the NG tube has been minimal for now. No other significant events otherwise for now. The patient has a white cell count of 5.9 with a hemoglobin 9.8. He has IV with normal state rate of 75 mL an hour. On today's evaluation of 11/06/2018 I'm seeing this patient for a follow-up. Patient is doing very well. NG tube is removed. The pericardial tube has been removed. The patient is breathing normally. No respiratory distress. No cough sputum production chest tightness or wheezing. Surgical site is dry clean and intact. He is passing bowel movements. No abdominal distention. No nausea or vomiting. No other significant events overnight. He is on empiric antibiotic coverage with IV Zosyn. This will be switched to oral antibiotics. No altered mentation. No other significant events otherwise for now. Objective - Vital Signs Vital signs: Vital Signs Temp 97.8 F 11/06/18 08:00 Pulse 82 11/06/18 11:06 Resp 18 11/06/18 11:00 BP 166/89 11/06/18 11:00 Pulse Ox 95 11/06/18 11:00 Intake & Output 11/05/18 11/06/1811/06/19 18:59 06:59 18:59 Intake Total 1200 1000 375 Output Total 480 1110 400 Balance 720 -110 -25 Weight 82.9 kg 82.9 kg Intake: IV 1200 1000 375 Magnesium Sulfate-D5w Pmx 100 1 gm In Dextrose/Water 1 100ml.bag @ 100 mls/hr IVPB Q1H [facility] Rx#: [id number] Piperacillin-Tazobactam 3 200 100 .375 gm In Sodium Chloride 0.9% 100 ml @ 25 mls/hr IVPB Q8HR [facility] Rx# :[id number] Sodium Chloride 0.9% 1, 900 900 375 000 ml @ 75 mls/hr IV . [id number] [facility] Rx#:[id number] Output: Chest Tube Drainage 20 Chest Tube Mediastinal 20 Urine 460 1110 400 Other: Voiding Method Urinal Urinal Urinal # Voids 1 # Bowel Movements 1 2 1 - Exam - Constitutional General appearance: Present: cooperative, no acute distress, obese - Respiratory Details: Lung sounds with few scattered rhonchi throughout, diminished to his bilateral bases. Respirations are symmetrical and nonlabored. Loose nonproductive cough. Oxygen saturation are 97% on room air. Achieving 1250 mL on his incentive spirometry. - Cardiovascular Details: Regular rhythm and rate. S1 and S2 present, negative for S3, gallop or murmur. Bedside telemetry showing normal sinus rhythm heart rate 85. No edema present. - Gastrointestinal Gastrointestinal Comment(s): Abdomen is soft, nontender and nondistended. Active bowel sounds all 4 abdominal quadrants. No guarding or rigidity. No organomegaly. NG tube remains in place to low intermittent wall suction. - Genitourinary Genitourinary Comment(s): Voiding clear yellow urine. - Integumentary Integumentary Comment(s): Skin is warm and dry. No clubbing or cyanosis is present. Subxiphoid incision clean, dry and approximated. No drainage or redness is present. - Neurologic Neurologic: Present: CNII-XII intact - Musculoskeletal Musculoskeletal: Present: gait normal, generalized weakness, strength equal bilaterally - Psychiatric Psychiatric: Present: A&O x's 3, appropriate affect, intact judgment & insight - Labs CBC & Chem 7: 11/06/18 06:40 11/06/18 06:40 Labs: Abnormal Lab Results - Last 24 Hours (Table) 11/05/18 11/06/18 11/06/18 Range/Units 16:00 05:34 06:40 RBC 3.46 L (4.30-5.90) m/uL Hgb 10.0 L (13.0-17.5) gm/dL Hct 30.3 L (39.0-53.0) % Lymphocytes # 0.9 L (1.0-4.8) k/uL Potassium (3.5-5.1) mmol/L BUN (9-20) mg/dL POC Glucose (mg/dL) 106 H (75-99) mg/dL Urine Protein Trace H (Negative) Urine Ketones 1+ H (Negative) Urine Blood Trace H (Negative) Urine Mucus Rare H (None) /hpf 11/06/18 Range/Units 06:40 RBC (4.30-5.90) m/uL Hgb (13.0-17.5) gm/dL Hct (39.0-53.0) % Lymphocytes # (1.0-4.8) k/uL Potassium 3.3 L (3.5-5.1) mmol/L BUN 8 L (9-20) mg/dL POC Glucose (mg/dL) (75-99) mg/dL Urine Protein (Negative) Urine Ketones (Negative) Urine Blood (Negative) Urine Mucus (None) /hpf Microbiology - Last 24 Hours (Table) 11/04/18 08:20 Gram Stain - Final Sputum Sputum Culture - Final 11/05/18 16:00 Urine Culture - Preliminary Urine,Voided Assessment and Plan Plan: 1 cardiac tamponade post cardiac catheterization and stenting. The patient is post pericardial window and cardiac tube insertion and the patient is postop day number 5. The cardiac tube has been removed yesterday and the patient is doing well and the patient is hemodynamically stable for the time being. 2 coronary artery disease post cardiac catheter insertion and stenting of the diagonal branch of coronary artery and the patient has had previous stenting of the circumflex back in June 2018 3 COPD mild inactive in stable with FEV1 of 67% of predicted 4 history of smoking, quit 4 months ago 5 ileus/bowel obstruction, recovered and the patient has adequate bowel activity and NG tube was removed yesterday and the patient is having adequate bowel activity and the patient is not having any abdominal distention. Advance diet as tolerated. 6 hypertension 7 hyperlipidemia 8 BPH 9 pulmonary lesion/nodule, based on a CAT scan of the chest that was done on 10/29/2018 this seemed to be a pleural-based infiltrate in the right upper lobe unchanged compared to the previous examination of August 2018 and follow-up was recommended. Plan The patient is stable. The patient will be switched to oral Augmentin. NG tube is removed. Cardiac tube has been removed. Advance diet. Advance activity as tolerated. We'll continue to follow. Possibly transfer to telemetry at a later stage.
[2018-11-06] MEDS ORDERED: ALPRAZolam 0.25 MG TAB PO PRN (13:05)
[2018-11-06] MEDS: POTASSIUM BICARBONATE/CIT AC 20 MEQ TABLET.EFF NG-TUBE SCH ×2 (15:59→22:35)
[2018-11-06] MEDS: POTASSIUM CHLORIDE 10 MEQ in WATER FOR INJECTION 1 100ML.BAG IVPB SCH ×2 (15:59→17:49)
[2018-11-06] MEDS: TAMSULOSIN 0.4 MG CAP.ER.24H PO SCH (17:49)
[2018-11-06] MEDS: AMOXIC-POT CLAV 875-125MG 1 EACH TAB PO SCH (21:51)
[2018-11-06] MEDS: ATORVASTATIN 80 MG TAB PO SCH (21:51)
[2018-11-06] MEDS: MELATONIN 5 MG TABLET PO SCH (21:51)
[2018-11-07] MEDS: POTASSIUM BICARBONATE/CIT AC 20 MEQ TABLET.EFF NG-TUBE SCH ×3 (01:44→13:21)
[2018-11-07] MEDS: HEPARIN SODIUM,PORCINE 5,000 UNIT/ML 1 ML VIAL SQ SCH ×3 (05:45→20:51)
[2018-11-07 06:02] LABS: Basophils % (A) 0 %; Eosinophils # (A) 0.3 k/uL (0-0.7); Eosinophils % (A) 7 %; HCT 27.2 % (39.0-53.0); HGB 9.2 gm/dL (13.0-17.5); Lymphocytes % (A) 23 %; MCH 29.7 pg (25.0-35.0); MCHC 33.9 g/dL (31.0-37.0); MCV 87.7 fL (80.0-100.0); Monocytes # (A) 0.3 k/uL (0-1.0); Monocytes % (A) 7 %; Neutrophils # (A) 2.8 k/uL (1.3-7.7); Neutrophils % (A) 60 %; Platelet Count 280 k/uL (150-450); RDW 14.7 % (11.5-15.5); WBC 4.6 k/uL (3.8-10.6)
[2018-11-07 06:23] LABS: ALT 59 U/L (21-72); AST 29 U/L (17-59); Alkaline Phosphatase 75 U/L (38-126); Anion Gap 6 mmol/L; Blood Urea Nitrogen 5 mg/dL (9-20); Calcium 8.8 mg/dL (8.4-10.2); Carbon Dioxide 28 mmol/L (22-30); Chloride 103 mmol/L (98-107); Glucose 96 mg/dL (74-99); Magnesium 1.7 mg/dL (1.6-2.3); Potassium 3.5 mmol/L (3.5-5.1); Sodium 137 mmol/L (137-145); Total Bilirubin 0.5 mg/dL (0.2-1.3); Total Protein 5.4 g/dL (6.3-8.2)
[2018-11-07] MEDS ORDERED: Potassium Replacement Protocol 1 EACH MISC MISCELLANE PRN (06:27)
[2018-11-07] MEDS ORDERED: Magnesium Replacement Protocol 1 EACH MISC MISCELLANE PRN (06:28)
[2018-11-07] MEDS: MAGNESIUM SULFATE-D5W PMX 1 GM in DEXTROSE/WATER 1 100ML.BAG IVPB SCH ×2 (06:52→08:21)
[2018-11-07] MEDS: POTASSIUM CHLORIDE ER 20 MEQ TAB.ER PO SCH ×2 (06:52→08:21)
[2018-11-07] MEDS: SYMBICORT 160-4.5 MCG INHALER INHALATION SCH ×2 (07:10→21:39)
[2018-11-07] MEDS: IPRATROPIUM-ALBUTEROL 3 ML NEB INHALATION SCH ×4 (07:10→21:39)
[2018-11-07] MEDS: ASPIRIN 81 MG PO SCH (08:21)
[2018-11-07] MEDS: METOPROLOL TARTRATE 25 MG TAB PO SCH ×3 (08:21→20:51)
[2018-11-07] MEDS: PANTOPRAZOLE 40 MG TABLET PO SCH (08:21)
[2018-11-07] MEDS: ISOSORBIDE MONONITRATE ER 30 MG TAB.ER.24H PO SCH (08:21)
[2018-11-07] MEDS: CLOPIDOGREL 75 MG TAB PO SCH (08:21)
[2018-11-07] MEDS: AMOXIC-POT CLAV 875-125MG 1 EACH TAB PO SCH ×2 (08:22→20:58)
--- NOTE | 2018-11-07 08:46 | P.PN ---
Subjective Progress Note Date: 11/07/18 Principal diagnosis: Pericardial effusion This is pleasant 68-year-old gentleman who underwent percutaneous coronary intervention which was complicated by delayed pericardial effusion requiring pericardiocentesis. I did follow-up with the patient today, November 07 and , and he is doing good from a cardiovascular standpoint overview. He is asymptomatic. He did have some diarrhea yesterday which has improved today. No chest pain or chest discomfort or shortness of breath. The hemoglobin is a stable. From the cardiovascular standpoint of view, the patient can be transferred out of the ICU on possibly can be discharged home. Objective - Vital Signs Vital signs: Vital Signs Temp 97.9 F 11/07/18 08:00 Pulse 73 11/07/18 08:00 Resp 12 11/07/18 08:00 BP 156/99 11/07/18 08:00 Pulse Ox 95 11/07/18 08:00 Intake & Output 11/06/18 11/07/18 11/07/18 18:59 06:59 18:59 Intake Total 950 900 75 Output Total 1050 1100 350 Balance -100 -200 -275 Weight 80.4 kg Intake: IV 950 900 75 Potassium Chloride 10 meq 200 In Water For Injection 1 100ml.bag @ 100 mls/hr IVPB Q1H [facility] Rx#: [id number] Sodium Chloride 0.9% 1, 750 900 75 000 ml @ 75 mls/hr IV . [id number] [facility] Rx#:[id number] Output: Urine 1050 1100 350 Other: Voiding Method Urinal Urinal Urinal # Voids 1 1 # Bowel Movements 1 2 - Constitutional General appearance: Present: no acute distress - Respiratory Respiratory: bilateral: CTA - Cardiovascular Rhythm: regular Heart sounds: normal: S1, S2 - Labs CBC & Chem 7: 11/07/18 05:32 11/07/18 05:32 Labs: Abnormal Lab Results - Last 24 Hours (Table) 11/06/18 11/06/18 11/07/18 Range/Units 14:11 20:50 05:32 RBC 3.10 L (4.30-5.90) m/uL Hgb 9.2 L (13.0-17.5) gm/dL Hct 27.2 L (39.0-53.0) % Potassium 2.9 L 3.1 L (3.5-5.1) mmol/L BUN (9-20) mg/dL Total Protein (6.3-8.2) g/dL Albumin (3.5-5.0) g/dL 11/07/18 Range/Units 05:32 RBC (4.30-5.90) m/uL Hgb (13.0-17.5) gm/dL Hct (39.0-53.0) % Potassium (3.5-5.1) mmol/L BUN 5 L (9-20) mg/dL Total Protein 5.4 L (6.3-8.2) g/dL Albumin 3.0 L (3.5-5.0) g/dL Microbiology - Last 24 Hours (Table) 11/05/18 16:00 Urine Culture - Final Urine,Voided 11/04/18 08:20 Gram Stain - Final Sputum Sputum Culture - Final Assessment and Plan Assessment: Assessment #1 status post percutaneous coronary intervention #2 pericardial effusion and status post pericardiocentesis #3 partial small bowel obstruction Plan #1 continue the current medical regimen #2 patient can be transferred out of the ICU.
--- NOTE | 2018-11-07 10:15 | CDI ---
Documentation Clarification Form Date: 11/02/2018 11:35:51 AM From: Shaylee Allen RN CCDS Admit Date: 11/01/2018 7:46:00 AM Patient Name: Matthieu Thomas Visit Number: [id number] Discharge Date: ATTENTION: The Clinical Documentation Specialists (CDI) and [facility] Coding Staff appreciate your assistance in clarifying documentation. Please respond to the clarification below the line at the bottom and electronically sign. The CDI & [facility] Coding staff will review the response and follow-up if needed. Please note: Queries are made part of the Legal Health Record. If you have any questions, please contact the author of this message via ITS. Dr. Franks Per the Pericardial Procedure Note A total of 450ml of blood was drained. History/Risk Factors: 68 year old male presents to the ED with dyspnea. Medical history CAD, HTN , COPD Clinical indicators: CT of Chest large amount of pericardial effusion was noted Hemoglobin: 10/29/2018 12.1 11/01/2018 8.8 Hematocrit: 10/29/2018 35.7 11/01/2018 26.5 Treatment: monitoring labs, Patient typed and crossed. In order to capture the severity of condition, please clarify the type of anemia and etiology if known: * Acute blood loss anemia * Unable to determine * Other, please specify (Last Revision: April 2017) Acute blood loss anemia MTDD
[2018-11-07] MEDS: SODIUM CHLORIDE 0.9% 1,000 ML IV SCH (11:18)
--- NOTE | 2018-11-07 11:20 | P.PN ---
Subjective Progress Note Date: 11/07/18 Principal diagnosis: Dyspnea, cough, chest pain This is a 68-year-old white male patient, who sees Dr. Gomez the pulmonary clinic for history of COPD with underlying FEV1 of 1.9 L or 67% of predicted, consistent with stage II COPD, not oxygen dependent, patient is a ex-smoker, previous history of pneumonia, previous history of myocardial infarction, coronary artery disease with previous stenting, hypertension, dyslipidemia. Patient presented to the emergency department on 10/29/2018 with complaints of coughing, increasing shortness of breath, phlegm production, wheezing, left- sided sharp chest pain, which is reproducible to palpation. His chest pain is left-sided, and is at the left rib margin. EKG was negative for any acute ST or T-wave abnormalities, lab work did not reveal any leukocytosis, white blood cell count was 6.3, hemoglobin was 12.1, d-dimer was mildly elevated to 0.95, electrolytes were within normal limits, BUN was 20 creatinine was 1.28. Troponi ns have been negative 2, proBNP was within normal limits at 251, he changes chest was completely, and showed no evidence for pulmonary embolism, bibasilar atelectasis was noted, pleural based infiltrate in the right lower lobe appeared to be unchanged and was compared to prior CT angios on 08/29/2018, hilar structures were negative for any evidence of mass, no hilar lymphadenopathy. This masslike consolidation in the right lower lobe is being followed by Dr. Gomez in the outpatient setting with follow-up CT chest. he had previously been given an option of CT-guided needle biopsy, bronchoscopy or observation and patient had opted for observation. No fever or chills, currently on suppleme ntal oxygen at 2 L and his pulse ox is 92%, hemodynamically stable. He is being evaluated by cardiology, his most recent echocardiogram in June 2018 showed preserved left ventricle systolic function with an EF of 50-55%. Repeat echocardiogram is pending at this time. We are asked to evaluate the patient for his dyspnea, and history of COPD, CT chest did not show any clear evidence of pulmonary infiltrate The patient is seen today 11/07/2018 in follow-up in the intensive care unit. He is currently sitting up at the bedside. Awake and alert in no acute distress. He is maintaining O2 saturations in the mid 90s on room air. He's been afebrile. Hemodynamically stable. He is having bowel movements. No significant abdominal discomfort. No chest pain. Sputum and urine cultures reveal no growth. White count 4.6. Hemoglobin 9.2. Creatinine 0.88. Objective - Vital Signs Vital signs: Vital Signs Temp 97.9 F 11/07/18 08:00 Pulse 69 11/07/18 10:00 Resp 10 L 11/07/18 10:00 BP 127/85 11/07/18 10:00 Pulse Ox 96 11/07/18 10:00 Intake & Output 11/06/18 11/07/18 11/07/18 18:59 06:59 18:59 Intake Total 950 900 225 Output Total 1050 1100 600 Balance -100 -200 -375 Weight 80.4 kg Intake: IV 950 900 225 Potassium Chloride 10 meq 200 In Water For Injection 1 100ml.bag @ 100 mls/hr IVPB Q1H [facility] Rx#: [id number] Sodium Chloride 0.9% 1, 750 900 225 000 ml @ 20 mls/hr IV . Q24H [facility] Rx#:[id number] Output: Urine 1050 1100 600 Other: Voiding Method Urinal Urinal Urinal # Voids 1 1 # Bowel Movements 1 2 - Exam GENERAL EXAM: Alert, pleasant 68-year-old gentleman, comfortable in no apparent distress. On room air. HEAD: Normocephalic. EYES: Normal reaction of pupils, equal size. NOSE: Nasogastric tube secured in place. Clear with pink turbinates. THROAT: No erythema or exudates. NECK: No masses, no JVD. CHEST: No chest wall deformity. Dressing remains dry and intact. LUNGS: Equal air entry with echoes in the posterior bases.. CVS: S1 and S2 normal with no audible murmur, regular rhythm. ABDOMEN: Distended, soft, normal bowel sounds, no guarding or rigidity. SPINE: No scoliosis or deformity SKIN: No rashes CENTRAL NERVOUS SYSTEM: No focal deficits, tone is normal in all 4 extremities. EXTREMITIES: There is no peripheral edema. No clubbing, no cyanosis. Peripheral pulses are intact. - Labs CBC & Chem 7: 11/07/18 05:32 11/07/18 05:32 Labs: Abnormal Lab Results - Last 24 Hours (Table) 11/06/18 11/06/18 11/07/18 Range/Units 14:11 20:50 05:32 RBC 3.10 L (4.30-5.90) m/uL Hgb 9.2 L (13.0-17.5) gm/dL Hct 27.2 L (39.0-53.0) % Potassium 2.9 L 3.1 L (3.5-5.1) mmol/L BUN (9-20) mg/dL Total Protein (6.3-8.2) g/dL Albumin (3.5-5.0) g/dL 11/07/18 Range/Units 05:32 RBC (4.30-5.90) m/uL Hgb (13.0-17.5) gm/dL Hct (39.0-53.0) % Potassium (3.5-5.1) mmol/L BUN 5 L (9-20) mg/dL Total Protein 5.4 L (6.3-8.2) g/dL Albumin 3.0 L (3.5-5.0) g/dL Microbiology - Last 24 Hours (Table) 11/05/18 16:00 Urine Culture - Final Urine,Voided 11/04/18 08:20 Gram Stain - Final Sputum Sputum Culture - Final Assessment and Plan Assessment: Assessment: #1. Dyspnea, cough, congestion, related to acute exacerbation of COPD and tracheobronchitis. Recovered. #2. Coronary artery disease status post stenting of the diagonal branch. Significant disease of the proximal LAD and complete occlusion of the RCA. Cardiac tamponade, status post pericardial window with subxiphoid chest tube in place, subsequently removed.. #3. Stage II COPD, with FEV1 of 1.9 L or 67% of predicted, oxygen dependent at baseline #4. Former smoker, quit smoking in June 2018, carries [id number] smoking history #5. Coronary artery disease, with history of previous stenting in the setting of acute myocardial infarction in June 2018 #6. Previous episode of pneumonia #7. 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 Osteoarthritis #9. Chronic back pain, patient has a pain stimulator Plan: The patient was seen and evaluated by Dr. Lau. The patient is stable from the pulmonary critical care standpoint. Awaiting stepdown bed. Home once cleared by cardiology. I, the cosigning physician, performed a history & physical examination of the patient. Lungs sounds crackles in the posterior bases. Maintaining good O2 sat urations in the 90s on room air. I discussed the assessment and plan of care with my nurse practitioner, Elise Guerra. I attest to the above note as dictated by her.
--- NOTE | 2018-11-07 13:52 | P.PN ---
Subjective Progress Note Date: 11/07/18 This is a 68-year-old male patient. It was discovered during patient stay that patient sees Dr. Franks as his PCP. Patient's primary doctor has been changed to Dr. Franks. Patient presented on 10/30/2018 with chest pain. Patient has past medical history of previous cardiac stents, asthma, chest pain, COPD, hyperlipidemia, arthritis, pneumonia, prostate disorder, seizure disorder, right lung mass being monitored and ex-smoker. Patient had positive stress test and cardiac catheterization was scheduled. On 10/31/2018 patient underwent a cardiac catheterization received a stent to the first diagonal branch. Patient was started on Plavix and aspirin at that time On 11/01/2018 A-team called due to declining patient status and CT of the chest was performed showing large amount of pericardial effusion consistent with hemopericardium. Patient was transferred to the intensive care unit. Patient was taken to the operating room for pericardial window by cardiothoracic surgery. Patient also having episodes of increased nausea and vomiting throughout the day. Abdominal x-ray completed showing pulmonary gassy bowel loops throughout, possible ileus 8 mm left renal calculus. NG tube was placed and GI services consulted. On 11/02/2018 patient is currently resting comfortably in bed. NG tube is in place. Chest tube also in place. Patient remains on Plavix. Patient remains in the intensive care unit. At this time patient is still complaining of some abdominal discomfort. Patient denies shortness of breath. Patient denies nausea vomiting or diarrhea. Patient denies any urinary burning or frequency On 11/03/2018 patient is currently resting in bed family at bedside. Patient st ates some improvement with abdominal pain NG tube in place. Ileus is improving per surgical services will continue to monitor. Discussed case with cardiothoracic surgery possible plans to remove chest tube tomorrow 11/04/2018. At this time patient denies chest pain or shortness of breath. Patient denies nausea vomiting or diarrhea. Patient denies any urinary burning or frequency. On 11/04/2018 patient was seen and examined in the intensive care unit he is alert and oriented 3 in no apparent distress NG tube is still in place Gonzalez catheter was removed patient is having multiple urination with small amount of urine, there is no fever or chills no headache or dizziness no chest pain no shortness of breath no cough no nausea or vomiting no abdominal pain he had a small amount of liquid stool otherwise normal bowel there is no burning was urination there is frequency and urgency no hematuria. On 11/05/2018 patient alert and oriented. Patient does appear more anxious today. Per nursing staff patient had episode where he choked on pill yesterday. Patient is about swallowing. Speech therapy has been consulted to assess swallowing. Patient also still having frequent urination. Will order urinary analysis to rule out infection. Patient also having bowel movements today. Per surgical services NG tube could be removed. This time patient denies chest pain or shortness of breath. Patient denies nausea vomiting or diarrhea. Patient denies any urinary burning. On 11/06/2018 patient is currently resting comfortably in bed. NG tube and chest tube have been removed. At this time patient is complaining of loose stools. Will order C. diff sample. Patient denies chest pain or shortness of breath. Patient denies nausea vomiting or diarrhea. Patient denies any urinary burning or frequency On 11/07/2018 patient is currently resting in bed. Patient to the intensive care unit. Patient's diet will be advanced. At this time patient denies chest pain or shortness of breath. Patient denies nausea vomiting or diarrhea. Patient denies urinary burning or frequency. Objective - Vital Signs Vital signs: Vital Signs Temp 97.9 F 11/07/18 12:00 Pulse 70 11/07/18 13:00 Resp 8 L 11/07/18 13:00 BP 85/51 11/07/18 13:00 Pulse Ox 93 L 11/07/18 13:00 Intake & Output 11/06/18 11/07/18 11/07/18 18:59 06:59 18:59 Intake Total 950 900 285 Output Total 1050 1100 850 Balance -100 -200 -565 Weight 80.4 kg Intake: IV 950 900 285 Potassium Chloride 10 meq 200 In Water For Injection 1 100ml.bag @ 100 mls/hr IVPB Q1H [facility] Rx#: [id number] Sodium Chloride 0.9% 1, 750 900 285 000 ml @ 20 mls/hr IV . Q24H [facility] Rx#:[id number] Output: Urine 1050 1100 850 Other: Voiding Method Urinal Urinal Urinal # Voids 1 1 # Bowel Movements 1 2 - Exam Head normocephalic Neck supple Lungs clear to auscultation bilaterally no wheezing or crackles. Chest tube in place Heart regular rate and rhythm S1-S2, no rub or gallop Abdomen distended and nontender, NG tube in place Extremities no edema Neuro alert and orientated to 3 - Labs CBC & Chem 7: 11/07/18 05:32 11/07/18 11:22 Labs: Abnormal Lab Results - Last 24 Hours (Table) 11/06/18 11/06/18 11/07/18 Range/Units 14:11 20:50 05:32 RBC 3.10 L (4.30-5.90) m/uL Hgb 9.2 L (13.0-17.5) gm/dL Hct 27.2 L (39.0-53.0) % Potassium 2.9 L 3.1 L (3.5-5.1) mmol/L BUN (9-20) mg/dL Total Protein (6.3-8.2) g/dL Albumin (3.5-5.0) g/dL 11/07/18 11/07/18 Range/Units 05:32 11:22 RBC (4.30-5.90) m/uL Hgb (13.0-17.5) gm/dL Hct (39.0-53.0) % Potassium 3.4 L (3.5-5.1) mmol/L BUN 5 L (9-20) mg/dL Total Protein 5.4 L (6.3-8.2) g/dL Albumin 3.0 L (3.5-5.0) g/dL Microbiology - Last 24 Hours (Table) 11/05/18 16:00 Urine Culture - Final Urine,Voided 11/04/18 08:20 Gram Stain - Final Sputum Sputum Culture - Final Assessment and Plan Assessment: 1. Coronary artery disease status post cardiac stent to the first diagonal on 10/31/2018 patient is currently on Plavix. 2. Cardiac tamponade status post coronary intervention. Patient underwent pericardial window per cardiothoracic surgery on 11/01/2018 with evacuation of 450 MLS of bloody effusion. Chest tube is in place. Cardiothoracic surgery is following. Per cardiothoracic surgery continue chest tube to waterseal. Cytology for pericardial fluid showing essentially peripheral blood with occa sional reactive mesothelial cells. Cell cytology diagnostic of malignancy neoplasm are not identified. Chest tube has been removed per cardiothoracic surgery. Cardiothoracic surgery has signed off 3. Increased shortness breath related exacerbation of COPD and tracheobronchitis. Pulmonary services are following. Patient currently on azithromycin and DuoNeb breathing treatments. Patient currently on Augmentin. 4. History of previous ME with stent to the circumflex continued June 2018 5. History of essential hypertension 6. History of osteoarthritis 7. History of hyperlipidemia 8. History of right lung mass. 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 Pulmonary services are following 9. History of pneumonia 10. History of BPH 11. Chronic back pain, patient has pain stimulator 12. Previous smoker. quit in June 2018 13. Elevated liver enzymes. These do appear to be trending down we'll continue to monitor 14. Ileus with abdominal distention. NG tube in place GI services have been consulted. currently nothing by mouth. Per surgical services ileus is improving. Continue Reglan and Dulcolax. Diet will be advanced surgical services have signed off 15. Frequency and urgency with urination small amount of urine will add Flomax 0.4 mg once daily. Urinary analysis added 16. Episode of difficulty swallowing. Speech eval consulted to assess swallow 17. Increased anxiety. Xanax added 18. Diarrhea. C. diff sample ordered DVT prophylaxis heparin. GI prophylaxis Protonix Plan for D/C in the next 24-48 hours. DC'd home with home health care I performed an examination of the patient and discussed their management with the Nurse Practitioner. I have reviewed the Nurse Practitioner's notes and agree with the documented findings and plan of care
[2018-11-07] MEDS: TAMSULOSIN 0.4 MG CAP.ER.24H PO SCH (17:54)
[2018-11-07] MEDS: MELATONIN 5 MG TABLET PO SCH (20:51)
[2018-11-07] MEDS: ATORVASTATIN 80 MG TAB PO SCH (20:51)
[2018-11-08 05:45] LABS: Basophils % (A) 1 %; Eosinophils # (A) 0.3 k/uL (0-0.7); Eosinophils % (A) 5 %; HCT 30.3 % (39.0-53.0); HGB 10.1 gm/dL (13.0-17.5); Lymphocytes % (A) 16 %; MCHC 33.2 g/dL (31.0-37.0); MCV 87.4 fL (80.0-100.0); Mean Platelet Volume 7.1; Monocytes # (A) 0.4 k/uL (0-1.0); Monocytes % (A) 6 %; Neutrophils # (A) 4.4 k/uL (1.3-7.7); Neutrophils % (A) 71 %; Platelet Count 334 k/uL (150-450); RBC 3.47 m/uL (4.30-5.90); RDW 15.6 % (11.5-15.5); WBC 6.1 k/uL (3.8-10.6)
[2018-11-08 06:33] LABS: Albumin 3.6 g/dL (3.5-5.0); Calcium 9.4 mg/dL (8.4-10.2); Potassium 3.9 mmol/L (3.5-5.1); Total Bilirubin 0.5 mg/dL (0.2-1.3)
[2018-11-08] MEDS: HEPARIN SODIUM,PORCINE 5,000 UNIT/ML 1 ML VIAL SQ SCH ×2 (07:30→14:23)
[2018-11-08] MEDS: AMOXIC-POT CLAV 875-125MG 1 EACH TAB PO SCH (08:28)
[2018-11-08] MEDS: METOPROLOL TARTRATE 25 MG TAB PO SCH (08:29)
[2018-11-08] MEDS: ISOSORBIDE MONONITRATE ER 30 MG TAB.ER.24H PO SCH (08:29)
[2018-11-08] MEDS: ASPIRIN 81 MG PO SCH (08:29)
[2018-11-08] MEDS: PANTOPRAZOLE 40 MG TABLET PO SCH (08:30)
[2018-11-08] MEDS: CLOPIDOGREL 75 MG TAB PO SCH (08:30)
[2018-11-08] MEDS: IPRATROPIUM-ALBUTEROL 3 ML NEB INHALATION SCH ×2 (08:35→12:49)
[2018-11-08] MEDS: SYMBICORT 160-4.5 MCG INHALER INHALATION SCH (08:35)
[2018-11-08 10:18] VITALS: BMI 28.6
--- NOTE | 2018-11-08 11:58 | P.PN ---
Subjective Progress Note Date: 11/08/18 Principal diagnosis: Dyspnea, cough, chest pain This is a 68-year-old white male patient, who sees Dr. Gomez the pulmonary clinic for history of COPD with underlying FEV1 of 1.9 L or 67% of predicted, consistent with stage II COPD, not oxygen dependent, patient is a ex-smoker, previous history of pneumonia, previous history of myocardial infarction, coronary artery disease with previous stenting, hypertension, dyslipidemia. Patient presented to the emergency department on 10/29/2018 with complaints of coughing, increasing shortness of breath, phlegm production, wheezing, left- sided sharp chest pain, which is reproducible to palpation. His chest pain is left-sided, and is at the left rib margin. EKG was negative for any acute ST or T-wave abnormalities, lab work did not reveal any leukocytosis, white blood cell count was 6.3, hemoglobin was 12.1, d-dimer was mildly elevated to 0.95, electrolytes were within normal limits, BUN was 20 creatinine was 1.28. Troponi ns have been negative 2, proBNP was within normal limits at 251, he changes chest was completely, and showed no evidence for pulmonary embolism, bibasilar atelectasis was noted, pleural based infiltrate in the right lower lobe appeared to be unchanged and was compared to prior CT angios on 08/29/2018, hilar structures were negative for any evidence of mass, no hilar lymphadenopathy. This masslike consolidation in the right lower lobe is being followed by Dr. Gomez in the outpatient setting with follow-up CT chest. he had previously been given an option of CT-guided needle biopsy, bronchoscopy or observation and patient had opted for observation. No fever or chills, currently on suppleme ntal oxygen at 2 L and his pulse ox is 92%, hemodynamically stable. He is being evaluated by cardiology, his most recent echocardiogram in June 2018 showed preserved left ventricle systolic function with an EF of 50-55%. Repeat echocardiogram is pending at this time. We are asked to evaluate the patient for his dyspnea, and history of COPD, CT chest did not show any clear evidence of pulmonary infiltrate The patient is seen today 11/07/2018 in follow-up in the intensive care unit. He is currently sitting up at the bedside. Awake and alert in no acute distress. He is maintaining O2 saturations in the mid 90s on room air. He's been afebrile. Hemodynamically stable. He is having bowel movements. No significant abdominal discomfort. No chest pain. Sputum and urine cultures reveal no growth. White count 4.6. Hemoglobin 9.2. Creatinine 0.88. Patient is seen today 11/08/2018 in follow-up in the intensive care unit. He has been I selective care overflow. He is currently awake and alert in no acute distress. Resting quite comfortably in bed. No shortness of breath, cough or congestion. Maintaining O2 saturations in the 90s on room air. No chest pain, palpitations lightheadedness or dizziness. White count 6.1. Hemoglobin 10.1. Creatinine 1.00. Objective - Vital Signs Vital signs: Vital Signs Temp 98.4 F 11/08/18 08:00 Pulse 79 11/08/18 11:00 Resp 11 L 11/08/18 11:00 BP 143/69 11/08/18 11:00 Pulse Ox 97 11/08/18 11:00 Intake & Output 11/07/18 11/08/18 11/08/18 18:59 06:59 18:59 Intake Total 385 240 60 Output Total 1200 450 690 Balance -815 -210 -047 Weight 80.5 kg 80.5 kg Intake: IV 385 240 60 Sodium Chloride 0.9% 1, 385 240 60 000 ml @ 20 mls/hr IV . Q24H [facility] Rx#:[id number] Output: Urine 1200 450 690 Other: Voiding Method Urinal Urinal Bedside Commode # Voids 0 1 - Exam GENERAL EXAM: Alert, pleasant 68-year-old gentleman, comfortable in no apparent distress. On room air. HEAD: Normocephalic. EYES: Normal reaction of pupils, equal size. NOSE: Nasogastric tube secured in place. Clear with pink turbinates. THROAT: No erythema or exudates. NECK: No masses, no JVD. CHEST: No chest wall deformity. LUNGS: Equal air entry with echoes in the posterior bases.. CVS: S1 and S2 normal with no audible murmur, regular rhythm. ABDOMEN: Distended, soft, normal bowel sounds, no guarding or rigidity. SPINE: No scoliosis or deformity SKIN: No rashes CENTRAL NERVOUS SYSTEM: No focal deficits, tone is normal in all 4 extremities. EXTREMITIES: There is no peripheral edema. No clubbing, no cyanosis. Peripheral pulses are intact. - Labs CBC & Chem 7: 11/08/18 05:09 11/08/18 05:09 Labs: Abnormal Lab Results - Last 24 Hours (Table) 11/08/18 11/08/18 Range/Units 05: 05:09 RBC 3.47 L (4.30-5.90) m/uL Hgb 10.1 L (13.0-17.5) gm/dL Hct 30.3 L (39.0-53.0) % RDW 15.6 H (11.5-15.5) % BUN 6 L (9-20) mg/dL Total Protein 6.0 L (6.3-8.2) g/dL Assessment and Plan Assessment: Assessment: #1. Dyspnea, cough, congestion, related to acute exacerbation of COPD and tracheobronchitis. Recovered. #2. Coronary artery disease status post stenting of the diagonal branch. Significant disease of the proximal LAD and complete occlusion of the RCA. Cardiac tamponade, status post pericardial window with subxiphoid chest tube in place, subsequently removed.. #3. Stage II COPD, with FEV1 of 1.9 L or 67% of predicted, oxygen dependent at baseline #4. Former smoker, quit smoking in June 2018, carries [id number] smoking history #5. Coronary artery disease, with history of previous stenting in the setting of acute myocardial infarction in June 2018 #6. Previous episode of pneumonia #7. 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 Osteoarthritis #9. Chronic back pain, patient has a pain stimulator Plan: The patient was seen and evaluated by Dr. Lau. The patient is stable from the pulmonary critical care standpoint. The plan is to discharge home today. He should follow-up in our office in 1-2 weeks' time. He is encouraged to call sooner with any pulmonary issues or concerns. I, the cosigning physician, performed a history & physical examination of the patient. Lungs sounds crackles in the posterior bases. Maintaining good O2 saturations in the 90s on room air. I discussed the assessment and plan of care with my nurse practitioner, Elise Guerra. I attest to the above note as dictated by her.
[2018-11-08 13:00] VITALS: PULSE 78
--- NOTE | 2018-11-08 13:00 | P.DS ---
Providers Date of admission: 11/01/18 07:46 Expected date of discharge: 11/08/18 Attending physician: Ilene Franks Consults: 10/29/18 10:46 Consult Physician Urgent Consulting Provider: Jerardo Sauer Consult Reason/Comments: dyspea Do you want consulting provider notified?: Yes 10/29/18 10:47 Consult Physician Urgent Consulting Provider: Robert Banks Consult Reason/Comments: cp Do you want consulting provider notified?: Yes 10/31/18 15:40 Consult Physician Routine Consulting Provider: [facility] Consult Reason/Comments: Post Interventional patient Do you want consulting provider notified?: Already Contacted 11/01/18 04:41 Consult Physician Stat Consulting Provider: Tyree Jameson Consult Reason/Comments: CTS for pericardial effusion Do you want consulting provider notified?: Already Contacted 11/02/18 06:13 Consult Physician Stat Consulting Provider: Ilene Franks Consult Reason/Comments: primary care Do you want consulting provider notified?: Yes 11/02/18 09:18 Consult Physician Routine Consulting Provider: Shane Yuan Consult Reason/Comments: Ileus Do you want consulting provider notified?: Yes Primary care physician: Ilene Franks [facility] Course: Discharge Diagnosis 1. Coronary artery disease status post cardiac stent to the first diagonal on 10/31/2018 patient is currently on Plavix. 2. Cardiac tamponade status post coronary intervention. Patient underwent pericardial window per cardiothoracic surgery on 11/01/2018 with evacuation of 450 MLS of bloody effusion. Chest tube is in place. Cardiothoracic surgery is following. Per cardiothoracic surgery continue chest tube to waterseal. Cytology for pericardial fluid showing essentially peripheral blood with occasional reactive mesothelial cells. Cell cytology diagnostic of malignancy neoplasm are not identified. Chest tube has been removed per cardiothoracic surgery. Cardiothoracic surgery has signed off 3. Increased shortness breath related exacerbation of COPD and tracheobronchitis. Pulmonary services are following. Patient currently on azithromycin and DuoNeb breathing treatments. Patient currently on Augmentin. will be DC'd on Augmentin for 7 more days 4. History of previous [place] with stent to the circumflex continued June 2018 5. History of essential hypertension 6. History of osteoarthritis 7. History of hyperlipidemia 8. History of right lung mass. 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 9. History of pneumonia 10. History of BPH 11. Chronic back pain, patient has pain stimulator 12. Previous smoker. quit in June 2018 13. Elevated liver enzymes. These do appear to be trending down we'll continue to monitor. resolved 14. Ileus with abdominal distention. NG tube in place GI services have been consulted. currently nothing by mouth. Per surgical services ileus is improving. Continue Reglan and Dulcolax. Has been on regular diet with normal bowel movements signed off 15. Frequency and urgency with urination small amount of urine will add Flomax 0.4 mg once daily. Urinary analysis added 16. Episode of difficulty swallowing. Patient was evaluated by CT they'll recommended. Shocked regular thin liquid diet 17. Increased anxiety. Xanax added. Resolved 18. Diarrhea. C. diff sample ordered. Resolved Hospital course This is a 68-year-old male patient. It was discovered during patient stay that patient sees Dr. Franks as his PCP. Patient's primary doctor has been changed to Dr. Franks. Patient presented on 10/30/2018 with chest pain. Patient has past medical history of previous cardiac stents, asthma, chest pain, COPD, hyperlipidemia, arthritis, pneumonia, prostate disorder, seizure disorder, right lung mass being monitored and ex-smoker. Patient had positive stress test and cardiac catheterization was scheduled. On 10/31/2018 patient underwent a cardiac catheterization received a stent to the first diagonal branch. Patient was started on Plavix and aspirin at that time On 11/01/2018 A-team called due to declining patient status and CT of the chest was performed showing large amount of pericardial effusion consistent with hemopericardium. Patient was transferred to the intensive care unit. Patient was taken to the operating room for pericardial window by cardiothoracic surgery. Patient also having episodes of increased nausea and vomiting throughout the day. Abdominal x-ray completed showing pulmonary gassy bowel lo ops throughout, possible ileus 8 mm left renal calculus. NG tube was placed and GI services consulted. On 11/02/2018 patient is currently resting comfortably in bed. NG tube is in place. Chest tube also in place. Patient remains on Plavix. Patient remains in the intensive care unit. At this time patient is still complaining of some abdominal discomfort. Patient denies shortness of breath. Patient denies nausea vomiting or diarrhea. Patient denies any urinary burning or frequency On 11/03/2018 patient is currently resting in bed family at bedside. Patient states some improvement with abdominal pain NG tube in place. Ileus is improving per surgical services will continue to monitor. Discussed case with cardiothoracic surgery possible plans to remove chest tube tomorrow 11/04/2018. At this time patient denies chest pain or shortness of breath. Patient denies nausea vomiting or diarrhea. Patient denies any urinary burning or frequency. On 11/04/2018 patient was seen and examined in the intensive care unit he is alert and oriented 3 in no apparent distress NG tube is still in place Gonzalez catheter was removed patient is having multiple urination with small amount of urine, there is no fever or chills no headache or dizziness no chest pain no shortness of breath no cough no nausea or vomiting no abdominal pain he had a small amount of liquid stool otherwise normal bowel there is no burning was urination there is frequency and urgency no hematuria. On 11/05/2018 patient alert and oriented. Patient does appear more anxious today. Per nursing staff patient had episode where he choked on pill yesterday. Patient is about swallowing. Speech therapy has been consulted to assess swallowing. Patient also still having frequent urination. Will order urinary analysis to rule out infection. Patient also having bowel movements today. Per surgical services NG tube could be removed. This time patient denies chest pain or shortness of breath. Patient denies nausea vomiting or diarrhea. Patient denies any urinary burning. On 11/06/2018 patient is currently resting comfortably in bed. NG tube and chest tube have been removed. At this time patient is complaining of loose stools. Will order C. diff sample. Patient denies chest pain or shortness of breath. Patient denies nausea vomiting or diarrhea. Patient denies any urinary burning or frequency On 11/07/2018 patient is currently resting in bed. Patient to the intensive care unit. Patient's diet will be advanced. At this time patient denies chest pain or shortness of breath. Patient denies nausea vomiting or diarrhea. Patient denies urinary burning or frequency. On 11/08/2018 patient is alert and oriented 3. Patient has been cleared for discharge from cardiology, pulmonary cardiothoracic services. Patient has been tolerating diet and having normal bowel movements. Patient is much more relaxed today. Patient has been up ambulating. Patient will be DC'd home with home h ealth care. At this time patient denies chest pain or shortness breath. Patient denies nausea vomiting or diarrhea. Patient denies any urinary burning or frequency I performed an examination of the patient and discussed their management with the Nurse Practitioner. I have reviewed the Nurse Practitioner's notes and agree with the documented findings and plan of care Patient Condition at Discharge: Stable Plan - Discharge Summary Discharge Rx Participant: Yes New Discharge Prescriptions: No Action Doxazosin Mesylate 8 mg PO BID HYDROcodone/APAP 10-325MG [[place] 10-325] 1 tab PO BID PRN PRN Reason: Pain fentaNYL [Duragesic 75MCG/HR] 1 patch TRANSDERM Q72H Pregabalin [Lyrica] 150 mg PO BID Aspirin 81 mg PO DAILY #30 chew Clopidogrel [Plavix] 75 mg PO DAILY #30 tab Melatonin 3 mg PO HS #30 tablet Metoprolol Tartrate [Lopressor] 25 mg PO BID #60 tab Atorvastatin [Lipitor] 80 mg PO HS Discharge Medication List Doxazosin Mesylate 8 mg PO BID 04/16/15 [History] HYDROcodone/APAP 10-325MG [[place] 10-325] 1 tab PO BID PRN 06/20/18 [History] Pregabalin [Lyrica] 150 mg PO BID 06/20/18 [History] fentaNYL [Duragesic 75MCG/HR] 1 patch TRANSDERM Q72H 06/20/18 [History] Aspirin 81 mg PO DAILY #30 chew 06/24/18 [Rx] Clopidogrel [Plavix] 75 mg PO DAILY #30 tab 06/24/18 [Rx] Melatonin 3 mg PO HS #30 tablet 06/24/18 [Rx] Metoprolol Tartrate [Lopressor] 25 mg PO BID #60 tab 06/24/18 [Rx] Atorvastatin [Lipitor] 80 mg PO HS 10/29/18 [History] Follow up Appointment(s)/Referral(s): Ilene Franks MD [Primary Care Provider] - 1-2 Days [facility], [NON-STAFF] - 1-2 Days
--- NOTE | 2018-11-08 14:02 | P.PN ---
Subjective Progress Note Date: 11/08/18 Principal diagnosis: Pericardial effusion This is pleasant 68-year-old gentleman who underwent percutaneous coronary intervention which was complicated by delayed pericardial effusion requiring pericardiocentesis. On follow-up with the patient today, November 082018, the patient is doing good from the cardiac vascular standpoint overview. He is asymptomatic. He is going to be transferred out of the ICU. Objective - Vital Signs Vital signs: Vital Signs Temp 98.4 F 11/08/18 08:00 Pulse 78 11/08/18 12:59 Resp 11 L 11/08/18 11:00 BP 143/69 11/08/18 11:00 Pulse Ox 97 11/08/18 11:00 Intake & Output 11/07/18 11/08/18 11/08/18 18:59 06:59 18:59 Intake Total 385 240 60 Output Total 1200 450 900 Balance -815 -210 -840 Weight 80.5 kg 80.5 kg Intake: IV 385 240 60 Sodium Chloride 0.9% 1, 385 240 60 000 ml @ 20 mls/hr IV . Q24H YULIA Rx#:[id number] Output: Urine 1200 450 900 Other: Voiding Method Urinal Urinal Bedside Commode # Voids 0 1 - Constitutional General appearance: Present: no acute distress - Respiratory Respiratory: bilateral: CTA - Cardiovascular Rhythm: regular Heart sounds: normal: S1, S2 - Labs CBC & Chem 7: 11/08/18 05:09 11/08/18 05:09 Labs: Abnormal Lab Results - Last 24 Hours (Table) 11/08/18 11/08/18 Range/Units 05:09 05:09 RBC 3.47 L (4.30-5.90) m/uL Hgb 10.1 L (13.0-17.5) gm/dL Hct 30.3 L (39.0-53.0) % RDW 15.6 H (11.5-15.5) % BUN 6 L (9-20) mg/dL Total Protein 6.0 L (6.3-8.2) g/dL Assessment and Plan Assessment: Assessment #1 status post percutaneous coronary intervention #2 pericardial effusion and status post pericardiocentesis #3 partial small bowel obstruction Plan #1 continue the current medical regimen #2 patient can be transferred out of the ICU.
[2018-11-08 14:27] VITALS: BP 127/69; RESP 17; TEMP 98.3
== END 2018-11-08 15:02 | disposition home health service (06) | DRG 270 ==
LOC: EC 08:27 → 1SOBS 10:47 → 3SCARD 10-31 16:13 → 2SICU 11-01 01:19 → OBSVTOIN 11-01 07:46
PROVIDERS: ADMIT Internal Medicine; ATTEND Internal Medicine
PROC: 4A023N7 Measurement of Cardiac Sampling and Pressure, Left Heart, Percutaneous Approach (ICD-10-PCS; 2018-10-31)
PROC: B2111ZZ Fluoroscopy of Multiple Coronary Arteries using Low Osmolar Contrast (ICD-10-PCS; 2018-10-31)
PROC: 027034Z Dilation of Coronary Artery, One Artery with Drug-eluting Intraluminal Device, Percutaneous Approach (ICD-10-PCS; principal; 2018-10-31 14:30)
PROC: 0W9D0ZZ Drainage of Pericardial Cavity, Open Approach (ICD-10-PCS; 2018-11-01)
PROC: 0D9670Z Drainage of Stomach with Drainage Device, Via Natural or Artificial Opening (ICD-10-PCS; 2018-11-02)
DX: I97.89 Other postprocedural complications and disorders of the circulatory system, not elsewhere classified (principal); I21.4 Non-ST elevation (NSTEMI) myocardial infarction; J69.0 Pneumonitis due to inhalation of food and vomit; J96.21 Acute and chronic respiratory failure with hypoxia; I31.4 Cardiac tamponade; I31.2 Hemopericardium, not elsewhere classified; K56.600 Partial intestinal obstruction, unspecified as to cause; I31.3 Pericardial effusion (noninflammatory); J44.1 Chronic obstructive pulmonary disease with (acute) exacerbation; J44.0 Chronic obstructive pulmonary disease with (acute) lower respiratory infection; K91.89 Other postprocedural complications and disorders of digestive system; D62 Acute posthemorrhagic anemia; I95.9 Hypotension, unspecified; R13.10 Dysphagia, unspecified; I25.10 Atherosclerotic heart disease of native coronary artery without angina pectoris; M19.90 Unspecified osteoarthritis, unspecified site; I25.2 Old myocardial infarction; E78.5 Hyperlipidemia, unspecified; M54.9 Dorsalgia, unspecified; G89.29 Other chronic pain; N40.1 Benign prostatic hyperplasia with lower urinary tract symptoms; G40.909 Epilepsy, unspecified, not intractable, without status epilepticus; R91.8 Other nonspecific abnormal finding of lung field; J20.9 Acute bronchitis, unspecified; I10 Essential (primary) hypertension; G56.03 Carpal tunnel syndrome, bilateral upper limbs; R74.8 Abnormal levels of other serum enzymes; Z68.28 Body mass index [BMI] 28.0-28.9, adult; R39.15 Urgency of urination; F41.9 Anxiety disorder, unspecified; R19.7 Diarrhea, unspecified; Z71.3 Dietary counseling and surveillance; Z79.899 Other long term (current) drug therapy; Z79.82 Long term (current) use of aspirin; Z79.02 Long term (current) use of antithrombotics/antiplatelets; Z99.81 Dependence on supplemental oxygen; Z87.01 Personal history of pneumonia (recurrent); Z95.5 Presence of coronary angioplasty implant and graft; Z87.891 Personal history of nicotine dependence; Z90.49 Acquired absence of other specified parts of digestive tract; Z80.1 Family history of malignant neoplasm of trachea, bronchus and lung; Z80.0 Family history of malignant neoplasm of digestive organs
CPT/HCPCS: 36415; 71045; 71046; 71275; 74018; 74021; 74174; 78452; 80048; 80053; 80061; 81001; 82550; 83605; 83735; 83880; 84100; 84132; 84484; 85025; 85027; 85379; 85610; 85730; 86850; 86900; 86901; 86920; 87070; 87086; 87205; 88108; 88305; 93005; 93017; 93306; 93308; 93458; 94640; 94760; 96374; 99285; C1874

== ENCOUNTER → 2019-02-14 | Outpatient (CLI) | payer MEDICARE ==
[2019-02-14 12:07] LABS: HGB 10.4 gm/dL (13.0-17.5); Hypochromasia Moderate; MCH 27.7 pg (25.0-35.0); MCHC 32.5 g/dL (31.0-37.0); MCV 85.3 fL (80.0-100.0); Mean Platelet Volume 7.2; Platelet Count 284 k/uL (150-450); RBC 3.75 m/uL (4.30-5.90); RDW 15.9 % (11.5-15.5); WBC 5.2 k/uL (3.8-10.6)
[2019-02-14 12:24] LABS: Potassium 4.4 mmol/L (3.5-5.1)
== END | disposition home or self-care (01) ==
LOC: LABWHC1 10:25
PROVIDERS: ATTEND Internal Medicine Interventional Cardiology
DX: Z01.812 Encounter for preprocedural laboratory examination (principal); R07.9 Chest pain, unspecified
CPT/HCPCS: 80051; 82565; 84520; 85027

== ENCOUNTER 2019-02-19 05:43 | Day surgery (SDC) | payer MEDICARE ==
[2019-02-13 14:41] VITALS: BMI 28.5
[2019-02-19] MEDS ORDERED: ASPIRIN 325 MG TAB PO STA (06:08)
[2019-02-19] MEDS ORDERED: ALPRAZolam 0.25 MG TAB PO PRN (06:08)
[2019-02-19] MEDS ORDERED: ALPRAZolam 0.5 MG TAB PO PRN (06:08)
[2019-02-19] MEDS ORDERED: ATORVASTATIN 80 MG TAB PO STA (06:08)
[2019-02-19] MEDS ORDERED: SODIUM CHLORIDE 0.9% 1,000 ML in EMPTY BAG 1 BAG IV ONE (06:08)
[2019-02-19] MEDS ORDERED: NITROGLYCERIN SL TABS 0.4 MG TAB SUBLINGUAL PRN (06:08)
[2019-02-19 06:31] VITALS: TEMP 98.3
[2019-02-19] MEDS ORDERED: HEPARIN SODIUM 1,000 UN/ML (10ML VL) ONE (07:08)
[2019-02-19] MEDS ORDERED: fentaNYL (PF) 50 MCG/ML 2 ML AMP ONE (07:09)
[2019-02-19] MEDS ORDERED: VERAPAMIL 2.5 MG/ML 2 ML AMP ONE (07:09)
[2019-02-19] MEDS ORDERED: LIDOCAINE 1% INJ 10MG/ML (20 ML MDV) ONE (07:09)
[2019-02-19] MEDS ORDERED: fentaNYL (PF) 50 MCG/ML 2 ML AMP IV ONE (07:30)
[2019-02-19] MEDS ORDERED: MIDAZOLAM (PF) 2 MG/2 ML VIAL IV ONE (07:36)
[2019-02-19] MEDS ORDERED: LIDOCAINE 1% INJ 10MG/ML (20 ML MDV) SQ ONE (07:36)
[2019-02-19] MEDS ORDERED: VERAPAMIL SYRINGE (5 MG/10 ML) INTRAARTER ONE (07:37)
[2019-02-19] MEDS: HEPARIN SODIUM 1,000 UN/ML (10ML VL) IV ONE ×2 (07:46→07:49)
[2019-02-19] MEDS ORDERED: ADENOSINE 90 MG in SODIUM CHLORIDE 0.9% 60 ML IVP ONE (08:29)
[2019-02-19] MEDS ORDERED: IOPAMIDOL-370 100ML BTL INJ ONE ×2 (08:36)
[2019-02-19] MEDS ORDERED: RX INFO: IV CONTRAST WAS GIVEN 1 EACH MISC MISCELLANE PRN (08:44)
[2019-02-19] MEDS ORDERED: SYMBICORT 80-4.5 MCG INHALER INHALATION SCH (08:45)
[2019-02-19] MEDS ORDERED: HYDROcodone/APAP 10-325MG 1 EACH TAB PO PRN (08:45)
[2019-02-19] MEDS ORDERED: SODIUM CHLORIDE 0.9% 1,000 ML IV SCH (08:45)
[2019-02-19] MEDS ORDERED: NON-FORMULARY DRUG (Omeprazole [Omeprazole] 20 MG) PO SCH (09:00)
[2019-02-19] MEDS ORDERED: NON-FORMULARY DRUG (Pregabalin [Lyrica] 150 MG) PO SCH (09:00)
[2019-02-19] MEDS ORDERED: METOPROLOL TARTRATE 25 MG TAB PO SCH (09:00)
[2019-02-19] MEDS ORDERED: ISOSORBIDE MONONITRATE ER 30 MG TAB.ER.24H PO SCH (09:00)
[2019-02-19] MEDS ORDERED: CLOPIDOGREL 75 MG TAB PO SCH (09:00)
[2019-02-19] MEDS ORDERED: ASPIRIN 81 MG PO SCH (09:00)
--- NOTE | 2019-02-19 09:14 | CC ---
CARDIAC CATHETERIZATION REPORT Mr. Thomas is a 68-year-old male with a known history of coronary artery disease, status post stenting of the diagonal branch and to the left circumflex who presented with symptoms of progressive dyspnea and chest discomfort. In view of that, recommendation was made regarding cardiac catheterization. The procedure as well as the risks and the complications were discussed with the patient who is in full understanding and agreement. PROCEDURE: Patient was brought to labor employment associate in a fasting semi-sedated state after receiving fentanyl and Benadryl and achieving moderate conscious sedated state. Using Xylocaine anesthesia in the Seldinger technique, a 6-Wolof sheath was introduced in the right radial artery. Selective right and left coronary angiography was performed using 5- Wolof 3.5 bend right and 4 bend left Yakelin catheter. Multiple views of the coronary artery including hemiaxial views obtained. Following that a 5-Wolof tight pigtail catheter was introduced in the left ventricle and pressures were calculated. Following that, the catheters were removed and a 6-Wolof FR4 guiding catheter introduced in the system and after cannulating the left main, a Crovat pressure Doppler wire was introduced in the LAD and an iFR and FFR were measured. Following, catheters and sheaths were removed. Hemostasis was obtained with deployment of a TR band. There was no immediate complication. Patient was returned to his room in stable condition. Of note, the patient received 5000 units of intravenous heparin as well as intra-arterial verapamil. FINDINGS: LEFT MAIN: This is a short size vessel bifurcating left circumflex, left anterior descending artery. Left main coronary artery has no evidence of high-grade stenosis. LEFT ANTERIOR DESCENDING ARTERY: This is a large-sized vessel reaching toward the apex tapers down distal third, giving rise to a large diagonal branch. The stented segment in the diagonal branch is patent with not any evidence of restenosis. At the takeoff of the diagonal branch, there is a 50% to 60% plaque in the LAD. The rest of the vessel has mild intimal disease without any evidence of high-grade stenosis. LEFT CIRCUMFLEX: This is a large nondominant vessel giving rise to 2 obtuse marginal branches. The first obtuse marginal branch has a 60% to 70% stenosis proximally. The AV groove left circumflex stented segment is patent without any evidence of restenosis. There is a 20% to 30% plaque distal to the stent. RIGHT CORONARY ARTERY: This vessel is totally occluded in proximal segment with no significant antegrade flow. COLLATERALS: There is collateral from the left anterior descending artery toward the PDA and the PLV. FRACTIONAL FLOW RESERVE: Fractional flow reserve was measured at 86% and iFR was 96%. LEFT VENTRICULAR END-DIASTOLIC PRESSURE: Left ventricular end-diastolic was 16 mmHg. CONCLUSION: 1. Patent stent to the diagonal branch in the left circumflex. 2. Chronic occluded right coronary artery. 3. Borderline significant lesion in the proximal LAD at the takeoff of the diagonal branch. 4. Non-hemodynamic significant LAD lesion with fractional flow reserve. RECOMMENDATION: In view of finding anatomy, I recommend to continue medical therapy with aggressive coronary risk modifications that have been initiated. He will follow up with Dr. Sauer regarding his lung status. Those findings and recommendation were discussed with the patient and his family and they are in full understanding and agreement. Duration of procedure is 58 minutes. RENETTA / BELKYS: [id number] /
[2019-02-19 10:47] VITALS: BP 99/62; PULSE 54; RESP 18
[2019-02-19] MEDS ORDERED: TAMSULOSIN 0.4 MG CAP.ER.24H PO SCH (18:30)
[2019-02-19] MEDS ORDERED: MELATONIN 3 MG TABLET PO SCH (21:00)
[2019-02-19] MEDS ORDERED: PANTOPRAZOLE 40 MG TABLET PO SCH (21:00)
[2019-02-19] MEDS ORDERED: ATORVASTATIN 80 MG TAB PO SCH (21:00)
== END 2019-02-19 13:58 | disposition home or self-care (01) ==
LOC: CATHCVL 05:43
PROVIDERS: ATTEND Internal Medicine Interventional Cardiology
DX: I25.10 Atherosclerotic heart disease of native coronary artery without angina pectoris (principal); I10 Essential (primary) hypertension; E78.2 Mixed hyperlipidemia; E78.00 Pure hypercholesterolemia, unspecified; Z87.891 Personal history of nicotine dependence; Z82.49 Family history of ischemic heart disease and other diseases of the circulatory system; Z95.5 Presence of coronary angioplasty implant and graft; I25.2 Old myocardial infarction; J44.9 Chronic obstructive pulmonary disease, unspecified; Z79.02 Long term (current) use of antithrombotics/antiplatelets; Z79.82 Long term (current) use of aspirin; Z79.891 Long term (current) use of opiate analgesic; Z79.51 Long term (current) use of inhaled steroids; Z79.899 Other long term (current) drug therapy
CPT/HCPCS: 93571; 93458; C1887; J2001; J3010; J1644; J0153; Q9967; J2250

== ENCOUNTER 2019-03-30 21:10 | Inpatient (IN) | payer MEDICARE ==
[2019-03-30] MEDS ORDERED: MAGNESIUM SULFATE-D5W PMX 1 GM in DEXTROSE/WATER 1 100ML.BAG IVPB STA (21:22)
[2019-03-30] MEDS ORDERED: methylPREDNISolone SOD SUCCI 125 MG/2 ML VIAL IV STA (21:22)
[2019-03-30] MEDS ORDERED: NITROGLYCERIN OINT 1 INCH/GM PACKET TOPICAL STA (21:22)
[2019-03-30] MEDS ORDERED: IPRATROPIUM-ALBUTEROL 3 ML NEB INHALATION STA (21:22)
[2019-03-30 21:47] LABS: INR 0.9 (<1.2); Partial Thromboplastin Time 22.3 sec (22.0-30.0); Prothrombin Time 9.6 sec (9.0-12.0)
[2019-03-30 21:49] LABS: Albumin 4.4 g/dL (3.5-5.0); Calcium 9.7 mg/dL (8.4-10.2); Magnesium 1.9 mg/dL (1.6-2.3); Total Bilirubin 0.3 mg/dL (0.2-1.3); Total Protein 7.2 g/dL (6.3-8.2)
[2019-03-30] MEDS ORDERED: SODIUM CHLORIDE 0.9% 500 ML 500 ML IV STA (21:50)
[2019-03-30 21:51] LABS: Anisocytosis Slight; Basophils % (A) 1 %; Eosinophils # (A) 0.2 k/uL (0-0.7); Eosinophils % (A) 4 %; HCT 32.6 % (39.0-53.0); HGB 10.5 gm/dL (13.0-17.5); Hypochromasia Slight; Lymphocytes # (A) 1.7 k/uL (1.0-4.8); Lymphocytes % (A) 30 %; MCH 26.9 pg (25.0-35.0); MCHC 32.3 g/dL (31.0-37.0); MCV 83.3 fL (80.0-100.0); Mean Platelet Volume 7.4; Monocytes # (A) 0.3 k/uL (0-1.0); Monocytes % (A) 5 %; Neutrophils # (A) 3.2 k/uL (1.3-7.7); Neutrophils % (A) 57 %; Platelet Count 227 k/uL (150-450); RBC 3.91 m/uL (4.30-5.90); RDW 17.3 % (11.5-15.5); WBC 5.5 k/uL (3.8-10.6)
--- NOTE | 2019-03-30 22:23 | XR ---
EXAMINATION TYPE: XR chest 2V DATE OF EXAM: 03/30/2019 COMPARISON: 12/31/2018 HISTORY: Difficulty breathing TECHNIQUE: Frontal and lateral views of the chest are obtained. FINDINGS: There is some coarse interstitial density in the mid and lower lung pruett. There is left shoulder prosthesis. There is no heart failure. There are chest leads. There is mild linear density a t the lung bases. There is neural stimulator in the thoracic spine. There is some chronic right middl e lobe linear anterior density consistent with scarring unchanged. IMPRESSION: Mild interstitial infiltrates and atelectasis at the lung bases are new compared to old exam. No gross heart failure. Normal heart. Stable right middle lobe scarring.
--- NOTE | 2019-03-30 23:14 | CT ---
EXAMINATION TYPE: CT brain denis quiroz DATE OF EXAM: 03/30/2019 COMPARISON: 06/19/2018 HISTORY: Pt was experiencing JORGE, left his location and walked 4 blocks to get help. May have blacked out; possible blunt head trauma. Pt twitiching CT DLP: 1534.6 mGycm Automated exposure control for dose reduction was used. TECHNIQUE: CT scan of the head and cervical spine are performed without contrast. FINDINGS: Ventricles have normal size. There is no mass effect nor midline shift. There is no sign of intracranial hemorrhage. Calvarium is intact. There is degenerative disc space narrowing throughout the cervical spine and more noticeable at C3-4 C5-6 and C6-7. The facet joints are intact. The skull base is intact. There is mild hypertrophic face t arthropathy. There are fibrotic changes in both upper lobes. IMPRESSION: Multilevel spondylotic changes in the cervical spine. No fracture. Negative CT scan of the brain and no change compared to old exam.
--- NOTE | 2019-03-31 00:08 | ED ---
Chest Pain HPI - General Chief Complaint: Chest Pain Stated Complaint: SOB Time Seen by Provider: 03/30/19 21:20 Source: EMS Mode of arrival: EMS - History of Present Illness Initial Comments: Patient is a 15-year-old male presents emergency Department with reported shortness of breath. Patient states that he was at a bar singing when he had sudden onset of shortness of breath. He does have history of CHF and COPD. He does not wear oxygen at home. Reports to a nonproductive cough recently. No fevers or chills. The patient became acutely diaphoretic. He was also having some chest pain. He states that he stumbled out of the bar and was attempting to go to his uncle's house. States that on his way home he kept stumbling. At one point he did fall and question whether he hit his head. He was unable to get up. Once he got to his uncle's house EMS was called. They placed him on a nonrebreather. They gave him a DuoNeb breathing treatment and his saturations improved. Patient reports that he took a nitro. EMS provided him with 324 mg aspirin. The patient arrives to me to tachypneic. States his chest pain is gone at this time. Denies hemoptysis. No lower extremity edema. No calf pain or swelling. There are no other alleviating, precipitating or modifying factors - Related Data Home Medications Medication Instructions Recorded Confirmed Pregabalin [Lyrica] 150 mg PO BID 06/20/18 04/04/19 fentaNYL [Duragesic 75MCG/HR] 1 patch TRANSDERM Q72H 06/20/18 04/04/19 Atorvastatin [Lipitor] 80 mg PO HS 10/29/18 04/04/19 Albuterol Inhaler [Ventolin Hfa 1 - 2 puff INHALATION RT-Q6H PRN 02/13/19 04/04/19 Inhaler] Budesonide/Formoterol Fumarate 2 puff INHALATION RT-BID 02/13/19 04/04/19 [Symbicort 80-4.5 Mcg Inhaler] HYDROcodone/APAP 10-325MG [[place] 1 tab PO BID PRN 02/13/19 04/04/19 10-325] Metoprolol Tartrate [Lopressor] 25 mg PO BID 02/13/19 04/04/19 Nitroglycerin 0.4 mg SL Q5M PRN 02/13/19 04/04/19 Omeprazole 20 mg PO HS 02/13/19 04/04/19 Isosorbide Mononitrate ER [Imdur] 60 mg PO DAILY 02/19/19 04/04/19 Melatonin 10 mg PO HS 03/30/19 04/04/19 Previous Rx's Medication Instructions Recorded Aspirin 81 mg PO DAILY #30 chew 06/24/18 Clopidogrel [Plavix] 75 mg PO DAILY 30 Days #30 tab 11/08/18 Tamsulosin [Flomax] 0.4 mg PO PC-SUPPER 30 Days #30 11/08/18 cap.er.24h Allergies Allergy/AdvReac Type Severity Reaction Status Date / Time No Known Allergies Allergy Verified 04/04/19 21:18 Review of Systems ROS Statement: Those systems with pertinent positive or pertinent negative responses have been documented in the HPI. ROS Other: All systems not noted in ROS Statement are negative. EKG Findings - EKG Comments: EKG Findings:: EKG demonstrates a sinus rhythm with premature atrial complexes. There is significant baseline artifact as the patient does not sit still. Ventricular rate is 78. FL interval 164. QRS 76. QTC 433. No acute ST segment elevations can be appreciated on this EKG Past Medical History Past Medical History: Asthma, Coronary Artery Disease (CAD), Chest Pain / Angina, COPD, Hyperlipidemia, Myocardial Infarction (PA), Osteoarthritis (OA), Pneumonia, Prostate Disorder, Seizure Disorder Additional Past Medical History / Comment(s): R lung mass-being monitored, chronic back pain, numbness/tingling arms/legs, bilateral carpal tunnel syndrome, balance problems, BPH, seizure in 2003. Last Myocardial Infarction Date:: 06/22/18 History of Any Multi-Drug Resistant Organisms: None Reported Past Surgical History: Adenoidectomy, Back Surgery, Cholecystectomy, Heart Catheterization With Stent, Orthopedic Surgery, Tonsillectomy Additional Past Surgical History / Comment(s): Multiple back surgeries including a pain stimulator in place/hardware, R knee surgery with hardware, L rotator cuff repair x 4/cadaver bone, colonoscopy Past Anesthesia/Blood Transfusion Reactions: No Reported Reaction Date of Last Stent Placement:: 06/22/18 Past Psychological History: No Psychological Hx Reported Smoking Status: Former smoker Past Alcohol Use History: None Reported Past Drug Use History: None Reported - Past Family History Father Family Medical History: Cancer Additional Family Medical History / Comment(s): Liver cancer. Mother Additional Family Medical History / Comment(s): Brain aneurysm Sister(s) Family Medical History: Cancer Additional Family Medical History / Comment(s): Lung cancer Brother(s) Family Medical History: No Reported History Family Family Medical History: Unable to Obtain General Exam General appearance: alert, in distress Head exam: Present: atraumatic, normocephalic, normal inspection Eye exam: Present: normal appearance, PERRL, EOMI. Absent: scleral icterus, conjunctival injection, periorbital swelling ENT exam: Present: normal exam, mucous membranes moist Neck exam: Present: normal inspection. Absent: tenderness, meningismus, lymphadenopathy Respiratory exam: Present: respiratory distress, wheezes, accessory muscle use. Absent: rales, rhonchi, stridor Cardiovascular Exam: Present: regular rate, normal rhythm, normal heart sounds. Absent: systolic murmur, diastolic murmur, rubs, gallop, clicks GI/Abdominal exam: Present: soft, normal bowel sounds. Absent: distended, tenderness, guarding, rebound, rigid Extremities exam: Present: normal inspection, full ROM, normal capillary refill. Absent: tenderness, pedal edema, joint swelling, calf tenderness Back exam: Present: normal inspection Neurological exam: Present: alert, oriented X3, CN II-XII intact Psychiatric exam: Present: normal affect, normal mood Skin exam: Present: warm, intact, normal color, diaphoretic. Absent: rash Course Vital Signs 03/30/19 03/30/19 03/30/19 21:14 21:24 21:25 Temperature 98.0 F Pulse Rate 81 Respiratory 22 25 H 24 Rate Blood Pressure 138/59 O2 Sat by Pulse 97 93 L 90 L Oximetry 03/30/19 03/30/19 03/30/19 21:43 22:27 23:35 Temperature 98.0 F Pulse Rate 76 78 76 Respiratory 22 23 Rate Blood Pressure 112/71 128/75 O2 Sat by Pulse 95 95 Oximetry 03/31/19 00:40 Temperature Pulse Rate 70 Respiratory 22 Rate Blood Pressure 121/76 O2 Sat by Pulse 93 L Oximetry Chest Pain MDM - MDM Upon arrival the patient is placed in room 2. He is hooked up to continuous pulse ox and cardiac monitoring. 12-lead EKG is performed. IV had been esta blished. The patient was given 125 mg Solu-Medrol and 1 g of magnesium. I also provided him with another DuoNeb breathing treatment. Laboratory studies were conducted. WBC is 5.5, hemoglobin 10.5, platelets 227, CO2 19, creatinine 1.67, glucose 109, lactic acid 5.4, first troponin is negative. Chest x-ray demonstrates mild interstitial infiltrates and atelectasis at the lung bases which are new compared to old exam. Stable right middle lobe scarring. I also CT the patient's brain because of this possible blunt head trauma while on Plavix. There are multilevel spondylitic changes in cervical spine but no fracture seen. Negative computed tomography scan of the brain. I discussed these results with the patient. He is on 4 L nasal cannula at this time. He is satting 96%. Because the patient's infiltrate seen on chest x-ray did recommend covering the patient with antibiotics. He was given a dose of Vanco and Zosyn. I recommended hospital admission for which the patient did agree. I did call Dr. Franks who requested that I consult Dr. Sauer. He also recommended antibiotics, steroids and breathing treatments to the floor. The patient remained in stable condition and was transported Disposition Clinical Impression: Acute exacerbation of COPD with asthma, Chest pain, Dyspnea, Right lower lobe lung mass, Altered mental status Disposition: ADMITTED IP TO THIS HOSP Condition: Stable Is patient prescribed a controlled substance at d/c from ED?: No Decision to Admit Reason: Admit from EC Decision Date: 03/31/19 Decision Time: 00:08
[2019-03-31] MEDS ORDERED: VANCOMYCIN IV PER PHARMACY 1 EACH MISC MISCELLANE PRN (00:09)
[2019-03-31] MEDS ORDERED: PIPERACILLIN-TAZOBACTAM 3.375 GM in SODIUM CHLORIDE 0.9% 100 ML IVPB STA (00:09)
[2019-03-31] MEDS ORDERED: NALOXONE 0.4 MG/ML 1 ML VIAL IV PRN (00:12)
[2019-03-31] MEDS ORDERED: VANCOMYCIN 1,500 MG in SODIUM CHLORIDE 0.9% 250 ML IVPB SCH ×2 (01:00→04:00)
[2019-03-31 01:12] LABS: Glucose,Whole Blood 170 mg/dL (75-99)
[2019-03-31] MEDS: HYDROcodone/APAP 10-325MG 1 EACH TAB PO PRN ×2 (05:55→18:34)
[2019-03-31 06:38] VITALS: BMI 29.0
[2019-03-31] MEDS ORDERED: IPRATROPIUM-ALBUTEROL 3 ML NEB INHALATION PRN (07:45)
[2019-03-31] MEDS ORDERED: SYMBICORT 80-4.5 MCG INHALER INHALATION SCH (08:00)
[2019-03-31] MEDS ORDERED: methylPREDNISolone SOD SUCCI 40 MG/ML 1 ML VIAL IV SCH (08:00)
[2019-03-31 08:13] LABS: Calcium 9.1 mg/dL (8.4-10.2); Potassium 4.3 mmol/L (3.5-5.1)
[2019-03-31 08:19] LABS: Anisocytosis Slight; Basophils % (A) 0 %; Eosinophils % (A) 1 %; HCT 31.6 % (39.0-53.0); HGB 9.6 gm/dL (13.0-17.5); Hypochromasia Slight; Lymphocytes # (A) 0.4 k/uL (1.0-4.8); Lymphocytes % (A) 13 %; MCH 25.2 pg (25.0-35.0); MCHC 30.3 g/dL (31.0-37.0); MCV 83.2 fL (80.0-100.0); Monocytes # (A) 0.1 k/uL (0-1.0); Monocytes % (A) 2 %; Neutrophils # (A) 2.7 k/uL (1.3-7.7); Neutrophils % (A) 84 %; Platelet Count 225 k/uL (150-450); RDW 16.4 % (11.5-15.5); WBC 3.2 k/uL (3.8-10.6)
--- NOTE | 2019-03-31 08:23 | CONS ---
CONSULTATION DATE OF SERVICE: 03/30/2019 The patient was seen in the emergency room on March 30. We had previously seen the patient in consultation back in October. This is a patient who does have a history of COPD. His COPD is moderate in severity. FEV 1% is 67. He also has a history of pleural-based lesions in his right lung, both in the right upper lobe and right lower lobe, being followed by my partner. The patient previous had declined bronchoscopy and CT-guided fine-needle aspiration. He apparently was brought into the emergency room by EMS yesterday with complaints of chest pain and shortness of breath. The patient is not a particularly good historian but apparently denied any drinking or use of tobacco products. He apparently was singing Karaoke at one of the local bars and started developing shortness of breath and chest pain. When you ask him to describe where the chest pain is, he really points more to the abdomen, upper abdomen area, particularly on the left side. Anyway, he is not having those complaints currently. He received some nitroglycerin in the emergency room and apparently the pain got better. He denies having shortness of breath currently. The ER physician admitted with a diagnosis of COPD exacerbation, chest pain, and mental status changes. Currently, he is awake and alert. I do not believe he is having any mental status changes. The patient is not a particular good historian. He is currently on nasal O2 at 4 L/minute. He is getting a saline IV KVO. He was admitted to Dr. Franks's service. . HOME MEDICATIONS: Include Lyrica, fentanyl patch, Lipitor albuterol inhaler, Symbicort, [place], metoprolol, nitroglycerin, omeprazole, Imdur, melatonin, aspirin, Plavix, and Flomax. ALLERGIES: Denied. MEDICAL HISTORY: Stage II or moderate COPD, CAD, angina, hyperlipidemia, myocardial infarction, DJD, pneumonia, BPH, and seizure disorder. In addition, he apparently has chronic back pain in the right upper lobe and right lower lobe, pleural-based lung mass is being followed by my partner. SURGICAL HISTORY: Surgical history includes adenoidectomy, back surgery, cholecystectomy, heart catheterization with stent, tonsillectomy, placement of a pain stimulator, left rotator cuff repair x4, right knee surgery and colonoscopy. SOCIAL HISTORY: Positive for previous tobacco use. Does not smoke currently. He quit June 2018. has about a 30 pack-year history of tobacco use. Denies illicit drug use or alcohol use. FAMILY HISTORY: Significant for a father with liver cancer. Mother with brain aneurysm. A sister with lung cancer. Another brother with no history and no other family history noted. REVIEW OF SYSTEMS: CONSTITUTIONAL: Negative. HEENT negative. CARDIOVASCULAR: Chest pain. PULMONARY: Shortness of breath. GI upper abdominal pain. negative. RHEUMATOLOGIC negative. IMMUNOLOGIC negative. ENDOCRINOLOGIC negative. DERMATOLOGIC negative. PHYSICAL EXAMINATION: VITAL SIGNS: Current vital signs are reviewed. Temperature is 97.9, heart rate 73, respiratory rate 14, blood pressure 100/65, mean 76, saturations are 96% on 4 L. GENERAL: Appears in no acute distress. HEENT examination is grossly unremarkable. Mucous membranes are moist. No oral lesions. NECK: Supple. Full range of motion. No adenopathy or thyromegaly. Neck veins are flat. CARDIOVASCULAR examination reveals regular rhythm and rate. S1, S2 normal. No S3, S4, or murmur. Heart sounds are distant. No murmur. LUNGS: Reveal mostly clear breath sounds. Maybe a few scattered mild rhonchi. No wheezes or crackles. Breath sounds equal. ABDOMEN: Soft, bowel sounds are heard. No masses or tenderness. EXTREMITIES are intact. No cyanosis, clubbing, or edema. SKIN: Without rash. NEUROLOGIC: Examination is nonfocal. The patient is not a particularly good historian. LAB DATA: Reviewed. White count 5.5, hemoglobin 10.5, hematocrit 30.6, platelet count 327,000. PT/INR PTT all normal. Sodium and potassium normal. Chloride 109. CO2 19. Anion gap is 15. BUN and creatinine were 31 and 1.67. Electrolytes are consistent with a mild hyperchloremic anion gap metabolic acidosis. Plasma lactic acid was 5.4 contributing to the acidosis. Repeat was 1.2. The rest of the comprehensive metabolic profile looks good. N terminal proBNP was 669. Troponin initially was less than 0.012 and repeat was 0.024. Chest x-ray shows some minimal bibasilar atelectasis or scarring. The mass as mentioned earlier, could not only be seen really on CT scan. Medications are reviewed. ASSESSMENT: 1. Shortness of breath and chest pain, of unclear etiology. Chronic obstructive pulmonary disease does not appear to be particularly active and initial dizziness and initial troponins appear to be negative. 2. History of stage II chronic obstructive pulmonary disease with an FEV1 of 1.9 L or 67% predicted. 3. Previous history of tobacco use, quit June 2018. 4. Coronary artery disease with previous stenting in the setting of an acute myocardial infarction, June 2018. 5. Previous episode of pneumonia. 6. Pleural based lesions right lung, right upper lobe, right lower lobe, being followed by my partner. Apparently, the patient refused bronchoscopy and CT-guided fine-needle aspiration. 7. Degenerative joint disease. 8. Chronic back pain with pain stimulator. 9. History of hyperlipidemia. 10.History of myocardial infarction. 11.Degenerative joint disease. 12.Benign prostatic hypertrophy. 13.History of bilateral carpal tunnel syndrome. 14.History of seizure disorder. PLAN: The patient's medications are reviewed. Additional recommendations and suggestions are forthcoming. He is being followed by Cardiology as well. He was admitted here primarily as an overflow patient. Additional recommendations and suggestions are forthcoming. Prognosis is guarded. I do not believe his COPD is particularly active at this time. MMODL / IJN: [id number] /
[2019-03-31] MEDS: CLOPIDOGREL 75 MG TAB PO SCH (09:23)
[2019-03-31] MEDS: ASPIRIN 81 MG PO SCH (09:23)
[2019-03-31] MEDS: ISOSORBIDE MONONITRATE ER 60 MG TAB.ER.24H PO SCH (09:24)
[2019-03-31] MEDS: PREGABALIN 75 MG CAP PO SCH ×2 (09:24→21:14)
[2019-03-31] MEDS: METOPROLOL TARTRATE 25 MG TAB PO SCH ×2 (09:24→21:14)
[2019-03-31] MEDS: SYMBICORT 160-4.5 MCG INHALER INHALATION SCH ×2 (09:29→19:57)
[2019-03-31] MEDS: IPRATROPIUM-ALBUTEROL 3 ML NEB INHALATION SCH ×3 (09:29→19:57)
--- NOTE | 2019-03-31 09:45 | P.CRDCN ---
History of Present Illness Consult date: 03/31/19 History of present illness: This is a 68-year-old gentleman with history of COPD and also coronary artery disease with previous stent placement. Patient apparently also had a pericardial effusion and pericardial window. He had a cardiac catheterization in February of this year and was found to have patent stents in the circumflex and RCA with a borderline lesion in the LAD and diagonal. Patient advised maximum medical therapy. Yesterday patient was at a bar and the was using karaoke. Apparently got short of breath and wanted to go home. Patient started walking because his car wouldn't start. It appears that patient became progressively short of breath as he walked towards his house and became very short of breath. Patient thought he may time. Subsequently was brought to the emergency room. His creatinine was high with some evidence of acidosis on admission. He was complaining of some pain, mostly in the abdominal area. His EKG did not reveal any acute changes. Cardiac enzymes. Patient is very comfortable at this time. He is being evaluated by computed tomography scan of the abdomen. Clinically he does have some JVD but no peripheral edema. His lungs show rhonchi and scattered wheezes. We will get an echocardiogram. If patient remains stable for the next 24 hours, patient could be discharged home. Follow-up with the Dr. Bolivar Review of Systems As per the chart Past Medical History Past Medical History: Asthma, Coronary Artery Disease (CAD), Chest Pain / Angina , COPD, Hyperlipidemia, Myocardial Infarction ([place]), Osteoarthritis (OA), Pneumonia, Prostate Disorder, Seizure Disorder Additional Past Medical History / Comment(s): R lung mass-being monitored, chronic back pain, numbness/tingling arms/legs, bilateral carpal tunnel syndrome , balance problems, BPH, seizure in 2003. Last Myocardial Infarction Date:: 06/22/18 History of Any Multi-Drug Resistant Organisms: None Reported Past Surgical History: Adenoidectomy, Back Surgery, Cholecystectomy, Heart Cath eterization With Stent, Orthopedic Surgery, Tonsillectomy Additional Past Surgical History / Comment(s): Multiple back surgeries including a pain stimulator in place/hardware, R knee surgery with hardware, L rotator cuff repair x 4/cadaver bone, colonoscopy Past Anesthesia/Blood Transfusion Reactions: No Reported Reaction Date of Last Stent Placement:: 06/22/18 Past Psychological History: No Psychological Hx Reported Smoking Status: Former smoker Past Alcohol Use History: None Reported Past Drug Use History: None Reported - Past Family History Father Family Medical History: Cancer Additional Family Medical History / Comment(s): Liver cancer. Mother Additional Family Medical History / Comment(s): Brain aneurysm Sister(s) Family Medical History: Cancer Additional Family Medical History / Comment(s): Lung cancer Brother(s) Family Medical History: No Reported History Family Family Medical History: Unable to Obtain Medications and Allergies Home Medications Medication Instructions Recorded Confirmed Type Pregabalin [Lyrica] 150 mg PO BID 06/20/18 03/30/19 History fentaNYL [Duragesic 75MCG/HR] 1 patch TRANSDERM Q72H 06/20/18 03/30/19 History Aspirin 81 mg PO DAILY #30 chew 06/24/18 03/30/19 Rx Atorvastatin [Lipitor] 80 mg PO HS 10/29/18 03/30/19 History Clopidogrel [Plavix] 75 mg PO DAILY 30 Days #30 tab 11/08/18 03/30/19 Rx Tamsulosin [Flomax] 0.4 mg PO PC-SUPPER 30 Days #30 11/08/18 03/30/19 Rx cap.er.24h Albuterol Inhaler [Ventolin Hfa 1 - 2 puff INHALATION RT-Q6H PRN 02/13/19 03/30/19 History Inhaler] Budesonide/Formoterol Fumarate 2 puff INHALATION RT-BID 02/13/19 03/30/19 History [Symbicort 80-4.5 Mcg Inhaler] HYDROcodone/APAP 10-325MG [Leming 1 tab PO BID PRN 02/13/19 03/30/19 History 10-325] Metoprolol Tartrate [Lopressor] 25 mg PO BID 02/13/19 03/30/19 History Nitroglycerin 0.4 mg SL Q5M PRN 02/13/19 03/30/19 History Omeprazole 20 mg PO HS 02/13/19 03/30/19 History Isosorbide Mononitrate ER [Imdur] 60 mg PO DAILY 02/19/19 03/30/19 History Melatonin 10 mg PO HS 03/30/19 03/30/19 History Allergies Allergy/AdvReac Type Severity Reaction Status Date / Time No Known Allergies Allergy Verified 03/30/19 21:39 Physical Exam Vitals: Vital Signs Temp Pulse Resp BP Pulse Ox 03/31/19 07:00 84 61 H 100/65 96 03/31/19 06:00 73 14 100/65 97 03/31/19 05:00 73 12 100/65 97 03/31/19 04:00 97.9 F 66 10 L 142/86 96 03/31/19 03:00 69 14 142/86 96 03/31/19 00:40 70 22 121/76 93 L 03/30/19 23:35 76 23 128/75 95 03/30/19 22:27 98.0 F 78 22 112/71 95 03/30/19 21:43 76 03/30/19 21:25 24 90 L 03/30/19 21:24 25 H 93 L 03/30/19 21:14 98.0 F 81 22 138/59 97 Intake and Output 03/30/19 03/31/19 03/31/19 22:59 06:59 14:59 Intake Total 430 20 Output Total 0 0 Balance 430 20 Intake: IV 430 20 0.9 NS KVO 80 20 Piperacillin-Tazobactam 3 100 .375 gm In Sodium Chloride 0.9% 100 ml @ 200 mls/hr IVPB ONCE STA Rx#:[id number] Vancomycin 1,500 mg In 250 Sodium Chloride 0.9% 250 ml @ 125 mls/hr IVPB Q24H [facility] Rx#:[id number] Output: Urine 0 0 Other: # Voids 1 Weight 81.647 kg GENERAL EXAM: Patient is alert and oriented and doesn't appear to be in any acute distress HEENT: Normocephalic. Normal reaction of pupils, equal size, normal range of ex traocular motion. No erythema or exudates in the throat. NECK: No masses, no nuchal rigidity. Engorged external jugular CHEST: No chest wall deformity. LUNGS: Rhonchi and wheezing HEART: S1 and S2 normal with no audible mumurs or gallops. Regular rhythm, femorals equal on both sides.. ABDOMEN: Soft and distended SKIN: No rashes CENTRAL NERVOUS SYSTEM: No focal deficits. EXTREMITIES: No cyanosis, clubbing or edema. Results 03/31/19 07:32 03/31/19 07:32 Cardiac Enzymes 03/30/19 03/30/19 03/31/19 Range/Units 21:23 21:23 03:16 AST 25 (17-59) U/L Troponin I <0.012 0.024 (0.000-0.034) ng/mL 03/31/19 Range/Units 07:32 AST (17-59) U/L Troponin I 0.018 (0.000-0.034) ng/mL Coagulation 03/30/19 Range/Units 21:23 PT 9.6 (9.0-12.0) sec APTT 22.3 (22.0-30.0) sec CBC 03/30/19 03/31/19 Range/Units 21:23 07:32 WBC 5.5 3.2 L (3.8-10.6) k/uL RBC 3.91 L 3.80 L (4.30-5.90) m/uL Hgb 10.5 L 9.6 L (13.0-17.5) gm/dL Hct 32.6 L 31.6 L (39.0-53.0) % Plt Count 227 225 (150-450) k/uL Comprehensive Metabolic Panel 03/30/19 03/31/19 Range/Units 21:23 07:32 Sodium 143 139 (137-145) mmol/L Potassium 4.0 4.3 (3.5-5.1) mmol/L Chloride 109 H 108 H (98-107) mmol/L Carbon Dioxide 19 L 20 L (22-30) mmol/L BUN 31 H 27 H (9-20) mg/dL Creatinine 1.67 H 1.25 (0.66-1.25) mg/dL Glucose 109 H 217 H (74-99) mg/dL Calcium 9.7 9.1 (8.4-10.2) mg/dL AST 25 (17-59) U/L ALT 17 L (21-72) U/L Alkaline Phosphatase 104 (38-126) U/L Total Protein 7.2 (6.3-8.2) g/dL Albumin 4.4 (3.5-5.0) g/dL Current Medications Generic Name Dose Route Start Last Admin Trade Name Freq PRN Reason Stop Dose Admin Hydrocodone Bitart/Acetaminophen 1 each 03/31/19 00:30 03/31/19 05:55 Leming 10 PO 1 each BID PRN Administration Pain Albuterol/Ipratropium 3 ml 03/31/19 07:45 Duoneb 0.5 Mg-3 Mg/3 Ml Soln INHALATION RT-TID PRN Shortness Of Breath Or Wheezing Albuterol/Ipratropium 3 ml 03/31/19 08:00 03/31/19 09:29 Duoneb 0.5 Mg-3 Mg/3 Ml Soln INHALATION 3 ml RT-TID YULIA Administration Aspirin 81 mg 03/31/19 09:00 03/31/19 09:23 Aspirin PO 81 mg DAILY YULIA Administration Budesonide/Formoterol Fumarate 2 puff 03/31/19 08:00 03/31/19 09:29 Symbicort 160-4.5 Mcg Inhaler INHALATION 2 puff RT-BID YULIA Administration Clopidogrel Bisulfate 75 mg 03/31/19 09:00 03/31/19 09:23 Plavix PO 75 mg DAILY YULIA Administration Fentanyl 1 patch 03/31/19 09:00 Duragesic 75mcg/Hr Patch TRANSDERM Q72H YULIA Iopamidol 30 ml 03/31/19 09:32 Isovue-300 30 Ml (For Oral Use) PO 04/01/19 09:[address] Scan Isosorbide Mononitrate 60 mg 03/31/19 09:00 03/31/19 09:24 Imdur PO 60 mg DAILY YULIA Administration Metoprolol Tartrate 25 mg 03/31/19 09:00 03/31/19 09:24 Lopressor PO 25 mg BID YULIA Administration Naloxone HCl 0.2 mg 03/31/19 00:12 Narcan IV Q2M PRN Opioid Reversal Pregabalin 150 mg 03/31/19 09:00 03/31/19 09:24 Lyrica PO 150 mg BID YULIA Administration Tamsulosin HCl 0.4 mg 03/31/19 18:30 Flomax PO PC-SUPPER YULIA Intake and Output 03/30/19 03/31/19 03/31/19 22:59 06:59 14:59 Intake Total 430 20 Output Total 0 0 Balance 430 20 Intake: IV 430 20 0.9 NS KVO 80 20 Piperacillin-Tazobactam 3 100 .375 gm In Sodium Chloride 0.9% 100 ml @ 200 mls/hr IVPB ONCE STA Rx#:[id number] Vancomycin 1,500 mg In 250 Sodium Chloride 0.9% 250 ml @ 125 mls/hr IVPB Q24H [facility] Rx#:[id number] Output: Urine 0 0 Other: # Voids 1 Weight 81.647 kg 03/31/19 07:32 03/31/19 07:32 EKG Interpretations (text) Sinus rhythm with non-specific ST changes Assessment and Plan Assessment: Patient is admitted with shortness of breath, abdominal discomfort and concern about mental status changes. So far his cardiac enzymes are negative and EKG did not reveal any acute changes. Chest x-ray showed possible infiltrate. Patient is back to normal today. I'll get an echocardiogram. If that doesn't show any acute changes, patient could be discharged home from Card standpoint. Follow-up with Dr. Bolivar
[2019-03-31] MEDS: IOPAMIDOL-300 CONTRAST 30 ML VIAL (ORAL USE) PO PRN ×2 (09:46→11:06)
--- NOTE | 2019-03-31 09:53 | P.HPIM ---
History of Present Illness H&P Date: 03/31/19 Matthieu Thomas is a 68-year-old male who presented to [facility] emergency room with a chief complaint of chest pain and shortness of breath, patient states that he was at the bar singing karaoke when he started having difficulty breathing and dry cough patient also developed diaphoresis, he went to his car but couldn't get his banegas to open his car so he decided to walk 4 blocks to his uncle's house, during that patient developed epigastric pain and worsening shortness of breath, he was stumbling and had fell at least once, patient reached his uncle's house and EMS were called and he was brought into emergency room. In the emergency room patient was evaluated, he was afebrile heart rate was 81 respiration rate 22 blood pressure 138/59 and pulse ox 97% on room air his EKG revealed normal sinus rhythm with nonspecific ST and T-wave abnormality, chest x-ray revealed mild interstitial infiltrates at the lung bases, white blood count was normal troponin level was negative, lactic acid was 5.4, BUN and creatinine were elevated at 31 and 1.67, patient was admitted to telemetry floor for further evaluation. 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 Garcia. Patient also has a known history of degenerative disc disease with chronic back pain he has a pain stimulator implanted. Patient also has a known history of seizure disorder. Past Medical History Past Medical History: Asthma, Coronary Artery Disease (CAD), Chest Pain / Angina, COPD, Hyperlipidemia, Myocardial Infarction ([place]), Osteoarthritis (OA), Pneumonia, Prostate Disorder, Seizure Disorder Additional Past Medical History / Comment(s): R lung mass-being monitored, chronic back pain, numbness/tingling arms/legs, bilateral carpal tunnel syndrome, balance problems, BPH, seizure in 2003. Last Myocardial Infarction Date:: 06/22/18 History of Any Multi-Drug Resistant Organisms: None Reported Past Surgical History: Adenoidectomy, Back Surgery, Cholecystectomy, Heart Catheterization With Stent, Orthopedic Surgery, Tonsillectomy Additional Past Surgical History / Comment(s): Multiple back surgeries including a pain stimulator in place/hardware, R knee surgery with hardware, L rotator cuff repair x 4/cadaver bone, colonoscopy Past Anesthesia/Blood Transfusion Reactions: No Reported Reaction Date of Last Stent Placement:: 06/22/18 Past Psychological History: No Psychological Hx Reported Smoking Status: Former smoker Past Alcohol Use History: None Reported Past Drug Use History: None Reported - Past Family History Father Family Medical History: Cancer Additional Family Medical History / Comment(s): Liver cancer. Mother Additional Family Medical History / Comment(s): Brain aneurysm Sister(s) Family Medical History: Cancer Additional Family Medical History / Comment(s): Lung cancer Brother(s) Family Medical History: No Reported History Family Family Medical History: Unable to Obtain Medications and Allergies Home Medications Medication Instructions Recorded Confirmed Type Pregabalin [Lyrica] 150 mg PO BID 06/20/18 03/30/19 History fentaNYL [Duragesic 75MCG/HR] 1 patch TRANSDERM Q72H 06/20/18 03/30/19 History Aspirin 81 mg PO DAILY #30 chew 06/24/18 03/30/19 Rx Atorvastatin [Lipitor] 80 mg PO HS 10/29/18 03/30/19 History Clopidogrel [Plavix] 75 mg PO DAILY 30 Days #30 tab 11/08/18 03/30/19 Rx Tamsulosin [Flomax] 0.4 mg PO PC-SUPPER 30 Days #30 11/08/18 03/30/19 Rx cap.er.24h Albuterol Inhaler [Ventolin Hfa 1 - 2 puff INHALATION RT-Q6H PRN 02/13/19 03/30/19 History Inhaler] Budesonide/Formoterol Fumarate 2 puff INHALATION RT-BID 02/13/19 03/30/19 History [Symbicort 80-4.5 Mcg Inhaler] HYDROcodone/APAP 10-325MG [Woodruff 1 tab PO BID PRN 02/13/19 03/30/19 History 10-325] Metoprolol Tartrate [Lopressor] 25 mg PO BID 02/13/19 03/30/19 History Nitroglycerin 0.4 mg SL Q5M PRN 02/13/19 03/30/19 History Omeprazole 20 mg PO HS 02/13/19 03/30/19 History Isosorbide Mononitrate ER [Imdur] 60 mg PO DAILY 02/19/19 03/30/19 History Melatonin 10 mg PO HS 03/30/19 03/30/19 History Allergies Allergy/AdvReac Type Severity Reaction Status Date / Time No Known Allergies Allergy Verified 03/30/19 21:39 Physical Exam Vitals: Vital Signs Temp Pulse Resp BP Pulse Ox 03/31/19 07:00 84 61 H 100/65 96 03/31/19 06:00 73 14 100/65 97 03/31/19 05:00 73 12 100/65 97 03/31/19 04:00 97.9 F 66 10 L 142/86 96 03/31/19 03:00 69 14 142/86 96 03/31/19 00:40 70 22 121/76 93 L 03/30/19 23:35 76 23 128/75 95 03/30/19 22:27 98.0 F 78 22 112/71 95 03/30/19 21:43 76 03/30/19 21:25 24 90 L 03/30/19 21:24 25 H 93 L 03/30/19 21:14 98.0 F 81 22 138/59 97 Intake and Output 03/30/19 03/31/19 03/31/19 22:59 06:59 14:59 Intake Total 430 20 Output Total 0 0 Balance 430 20 Intake: IV 430 20 0.9 NS KVO 80 20 Piperacillin-Tazobactam 3 100 .375 gm In Sodium Chloride 0.9% 100 ml @ 200 mls/hr IVPB ONCE STA Rx#:[id number] Vancomycin 1,500 mg In 250 Sodium Chloride 0.9% 250 ml @ 125 mls/hr IVPB Q24H [facility] Rx#:[id number] Output: Urine 0 0 Other: # Voids 1 Weight 81.647 kg In general patient is alert and oriented 3 in no apparent distress HEENT head normocephalic and atraumatic Neck is supple no JVD no goiter no lymphadenopathy Chest exam reveals a few scattered rhonchi no wheezing Cardiac exam reveals regular heart sounds S1 and S2 no gallops no murmurs Abdomen is soft with epigastric tenderness no palpable organomegaly no palpable masses with normal bowel sounds Extremity exam reveals minimal edema no cyanosis or clubbing Neurological examination reveals no gross focal deficit Results CBC & Chem 7: 03/31/19 07:32 03/31/19 07:32 Labs: Abnormal Lab Results - Last 24 Hours (Table) 03/30/19 03/30/19 03/30/19 Range/Units 21:23 21:23 21:23 WBC (3.8-10.6) k/uL RBC 3.91 L (4.30-5.90) m/uL Hgb 10.5 L (13.0-17.5) gm/dL Hct 32.6 L (39.0-53.0) % MCHC (31.0-37.0) g/dL RDW 17.3 H (11.5-15.5) % Lymphocytes # (1.0-4.8) k/uL Chloride 109 H (98-107) mmol/L Carbon Dioxide 19 L (22-30) mmol/L BUN 31 H (9-20) mg/dL Creatinine 1.67 H (0.66-1.25) mg/dL Glucose 109 H (74-99) mg/dL POC Glucose (mg/dL) (75-99) mg/dL Plasma Lactic Acid Allen 5.4 H* (0.7-2.0) mmol/L ALT 17 L (21-72) U/L 03/31/19 03/31/19 03/31/19 Range/Units 01:09 07:32 07:32 WBC 3.2 L (3.8-10.6) k/uL RBC 3.80 L (4.30-5.90) m/uL Hgb 9.6 L (13.0-17.5) gm/dL Hct 31.6 L (39.0-53.0) % MCHC 30.3 L (31.0-37.0) g/dL RDW 16.4 H (11.5-15.5) % Lymphocytes # 0.4 L (1.0-4.8) k/uL Chloride 108 H (98-107) mmol/L Carbon Dioxide 20 L (22-30) mmol/L BUN 27 H (9-20) mg/dL Creatinine (0.66-1.25) mg/dL Glucose 217 H (74-99) mg/dL POC Glucose (mg/dL) 170 H (75-99) mg/dL Plasma Lactic Acid Allen (0.7-2.0) mmol/L ALT (21-72) U/L Thrombosis Risk Factor Assmnt - Choose All That Apply Each Factor Represents 1 point: Obesity (BMI >25) Each Risk Factor Represents 2 Points: Age 61-74 years Thrombosis Risk Factor Assessment Total Risk Factor Score: 3 Thrombosis Risk Factor Assessment Level: Moderate Risk Assessment and Plan Plan: #1 episode of chest pain, no significant abnormality on EKG troponin levels are negative, cardiology consult was requested, echocardiogram was ordered, patient has a known history of coronary artery disease with angioplasty and stent placement in June 2018 he is maintained on Plavix. #2 dehydration was acute renal failure with elevated BUN and creatinine patient started on IV fluid Will monitor kidney function closely #3 epigastric pain, cause is unclear will check computed tomography scan of the abdomen and pelvis without IV contrast, will check amylase and lipase level #4 shortness of breath, patient has a known history of COPD, pulmonary consultation was requested, chest x-ray showing by basilar infiltrates. #5 elevated lactic acid at 5.4 #6 previous history of congestive heart failure #7 history of seizure disorder, patient is on Lyrica but otherwise no seizure medications, will obtain EEG and neurology consult #8 underlying history of hypertension maintained on metoprolol, well-controlled #9 underlying history of hyperlipidemia maintained on Lipitor 80 mg #10 degenerative disc disease with chronic back pain maintained on fentanyl patch and has a pain stimulator implanted At this time will check amylase and lipase check urine analysis check computed tomography scan of the abdomen and pelvis with oral contrast without IV contrast Check EEG and consult neurology, will follow closely.
[2019-03-31 10:10] LABS: Amylase 50 U/L (30-110)
[2019-03-31] MEDS ORDERED: NITROGLYCERIN SL TABS 0.4 MG TAB SUBLINGUAL PRN (10:38)
[2019-03-31] MEDS ORDERED: NITROGLYCERIN SL TABS 0.4 MG TAB SUBLINGUAL ONE (10:40)
[2019-03-31 11:49] LABS: Amorphous Sediment,Urine Rare /hpf; Appearance,Urine Cloudy (Clear); Bilirubin,Urine Negative (Negative); Blood,Urine Negative (Negative); Color,Urine Yellow; Glucose,Urine (UA) 4+ (Negative); Ketones,Urine Trace (Negative); Leukocyte Esterase,Urine Negative (Negative); Mucus,Urine Rare /hpf; Nitrite,Urine Negative (Negative); PH, Urine 5.5 (5.0-8.0); Protein,Urine Trace (Negative); RBC,Urine <1 /hpf (0-5); Specific Gravity,Urine 1.025 (1.001-1.035); Urobilinogen,Urine <2.0 mg/dL (<2.0); WBC,Urine 1 /hpf (0-5)
[2019-03-31 11:59] LABS: Glucose,Whole Blood 160 mg/dL (75-99)
[2019-03-31] MEDS: INSULIN ASPART (NovoLOG) 100 UNIT/ML VIAL SQ SCH ×3 (12:20→21:14)
--- NOTE | 2019-03-31 12:26 | CT ---
EXAMINATION TYPE: CT abdomen pelvis wo con DATE OF EXAM: 03/31/2019 COMPARISON: Previous study dated 11/01/2018 HISTORY: Left sided abdominal pain CT DLP: 788.7 mGycm Automated exposure control for dose reduction was used. FINDINGS: There is some airspace disease in the right middle lobe. Visualized portions of the lungs a re otherwise clear. There is a small right pleural effusion.. There is no pericardial effusion presen t at this time. The heart is not enlarged. Within the abdomen, the gallbladder is been removed. The liver and spleen are normal. Both adrenal glands are normal. There is no evidence of hydronephrosis or nephrolithiasis. The pancreas is unremarkable. There is no significant retroperitoneal, iliac or inguinal adenopathy The bladder is somewhat thick-walled. The bladder is not distended. I could not exclude some degree o f bladder outlet obstruction. There is extensive diverticulosis of the sigmoid colon with scattered diverticula also on the left si de of the colon. I do not see radiographic evidence of diverticulitis. The appendix is normal. Small bowel loops are normal. There is no free fluid and no free air. There are previous interpedicular fusion extending from L3 to S1. Degenerative disc disease and hyper trophic spondylosis in the levels above this. IMPRESSION: 1. MINIMAL RIGHT MIDDLE LOBE AIRSPACE DISEASE. 2. SMALL RIGHT-SIDED EFFUSION. 3. NO EVIDENCE OF HYDRONEPHROSIS OR NEPHROLITHIASIS. 4. EXTENSIVE DIVERTICULOSIS OF THE LEFT-SIDED COLON. 5. POSTSURGICAL AND DEGENERATIVE CHANGES INVOLVING THE LUMBAR SPINE.
[2019-03-31 17:00] LABS: Glucose,Whole Blood 132 mg/dL (75-99)
[2019-03-31] MEDS: TAMSULOSIN 0.4 MG CAP.ER.24H PO SCH (18:32)
--- NOTE | 2019-03-31 20:25 | P.CNNES ---
History of Present Illness Consult date: 03/31/19 Requesting physician: Ilene Franks Reason for Consult: Seizure disorder Chief complaint: Seizure disorder History of Present Illness: This is a 68 RH male h/o remote seizures that started in the early when he almost fell into a 2800 F container while at work. He was fortunately pulled back by his coworkers. He then lost consciousness and woke up in the hospital 3 days later. He also started having seizures that were "shaking all over" with or without tongue biting but without bowel/bladder incontinence. Had had a total of 6 seizures in his lifetime. His last seizure was more than 20 years. He does not recall if he took anything for his seizures back then. He is on Lyrica, which is an AED, though he takes it primarily for back pain and not to treat/prevent seizures. He is currently hospitalized for CP and SOB. Review of Systems I have performed a 14-point organ ROS with patient; pertinents are as per HPI. Past Medical History Past Medical History: Asthma, Coronary Artery Disease (CAD), Chest Pain / Angina, COPD, Hyperlipidemia, Myocardial Infarction ([place]), Osteoarthritis (OA), Pneumonia, Prostate Disorder, Seizure Disorder Additional Past Medical History / Comment(s): R lung mass-being monitored, chronic back pain, numbness/tingling arms/legs, bilateral carpal tunnel syndrome, balance problems, BPH, seizure in 2003. Last Myocardial Infarction Date:: 06/22/18 History of Any Multi-Drug Resistant Organisms: None Reported Past Surgical History: Adenoidectomy, Back Surgery, Cholecystectomy, Heart Catheterization With Stent, Orthopedic Surgery, Tonsillectomy Additional Past Surgical History / Comment(s): Multiple back surgeries including a pain stimulator in place/hardware, R knee surgery with hardware, L rotator cuff repair x 4/cadaver bone, colonoscopy Past Anesthesia/Blood Transfusion Reactions: No Reported Reaction Date of Last Stent Placement:: 06/22/18 Past Psychological History: No Psychological Hx Reported Smoking Status: Former smoker Past Alcohol Use History: None Reported Past Drug Use History: None Reported - Past Family History Father Family Medical History: Cancer Additional Family Medical History / Comment(s): Liver cancer. Mother Additional Family Medical History / Comment(s): Brain aneurysm Sister(s) Family Medical History: Cancer Additional Family Medical History / Comment(s): Lung cancer Brother(s) Family Medical History: No Reported History Family Family Medical History: Unable to Obtain Medications and Allergies Home Medications Medication Instructions Recorded Confirmed Type Pregabalin [Lyrica] 150 mg PO BID 06/20/18 03/30/19 History fentaNYL [Duragesic 75MCG/HR] 1 patch TRANSDERM Q72H 06/20/18 03/30/19 History Aspirin 81 mg PO DAILY #30 chew 06/24/18 03/30/19 Rx Atorvastatin [Lipitor] 80 mg PO HS 10/29/18 03/30/19 History Clopidogrel [Plavix] 75 mg PO DAILY 30 Days #30 tab 11/08/18 03/30/19 Rx Tamsulosin [Flomax] 0.4 mg PO PC-SUPPER 30 Days #30 11/08/18 03/30/19 Rx cap.er.24h Albuterol Inhaler [Ventolin Hfa 1 - 2 puff INHALATION RT-Q6H PRN 02/13/19 03/30/19 History Inhaler] Budesonide/Formoterol Fumarate 2 puff INHALATION RT-BID 02/13/19 03/30/19 History [Symbicort 80-4.5 Mcg Inhaler] HYDROcodone/APAP 10-325MG [[place] 1 tab PO BID PRN 02/13/19 03/30/19 History 10-325] Metoprolol Tartrate [Lopressor] 25 mg PO BID 02/13/19 03/30/19 History Nitroglycerin 0.4 mg SL Q5M PRN 02/13/19 03/30/19 History Omeprazole 20 mg PO HS 02/13/19 03/30/19 History Isosorbide Mononitrate ER [Imdur] 60 mg PO DAILY 02/19/19 03/30/19 History Melatonin 10 mg PO HS 03/30/19 03/30/19 History Allergies Allergy/AdvReac Type Severity Reaction Status Date / Time No Known Allergies Allergy Verified 03/30/19 21:39 Physical Examination - Vital Signs Vital Signs: Vital Signs Temp Pulse Resp BP Pulse Ox 03/31/19 20:11 78 03/31/19 19:59 76 96 03/31/19 16:00 97.5 F L 71 15 120/75 96 03/31/19 13:53 71 03/31/19 13:42 70 03/31/19 12:00 97.9 F 69 12 118/81 97 03/31/19 09:53 76 03/31/19 09:43 79 03/31/19 08:00 97.5 F L 79 14 124/81 97 03/31/19 07:00 84 61 H 100/65 96 03/31/19 06:00 73 14 100/65 97 03/31/19 05:00 73 12 100/65 97 03/31/19 04:00 97.9 F 66 10 L 142/86 96 03/31/19 03:00 69 14 142/86 96 03/31/19 00:40 70 22 121/76 93 L 03/30/19 23:35 76 23 128/75 95 03/30/19 22:27 98.0 F 78 22 112/71 95 03/30/19 21:43 76 03/30/19 21:25 24 90 L 03/30/19 21:24 25 H 93 L 03/30/19 21:14 98.0 F 81 22 138/59 97 Intake and Output 03/31/19 03/31/19 03/31/19 06:59 14:59 22:59 Intake Total 430 520 Output Total 0 500 Balance 430 20 Intake: IV 430 20 0.9 NS KVO 80 20 Piperacillin-Tazobactam 3 100 .375 gm In Sodium Chloride 0.9% 100 ml @ 200 mls/hr IVPB ONCE STA Rx#:[id number] Vancomycin 1,500 mg In 250 Sodium Chloride 0.9% 250 ml @ 125 mls/hr IVPB Q24H YULIA Rx#:[id number] Oral 500 Output: Urine 0 500 Other: # Voids 1 2 3 # Bowel Movements 1 Gen NAD Pleasant and cooperative HEENT NCAT Sclera without icterus O/P clear Neck Supple No carotid bruit Cor RRR no m/r/g Lungs CTAB Abd Soft NTND +BS Ext Warm to touch No edema Neuro MS A+Ox4 Normal fluency Able to follow all commands CN PERRL VFF no APD EOMI no nystagmus or JEREMIAH No facial asymmetry Masseter's symmetric Hearing intact to normal voice bilaterally Speech not dysarthric Equal elevation of palate Tongue midline Sym shrug and SCM bilaterally Motor Normal bulk/tone No pronator or tremors Strength 5/5 sym throughout Sens Intact to LT x4 No neglect or extinction Coord No dysmetria on FTN bilaterally DTRs 2+/4 sym throughout Toes downgoing bilaterally No clonus at achilles Gait Deferred Results - Laboratory Findings CBC and BMP: 03/31/19 07:32 03/31/19 07:32 Abnormal Lab Findings: Abnormal Labs 03/30/19 03/30/19 03/30/19 21:23 21:23 21:23 WBC RBC 3.91 L Hgb 10.5 L Hct 32.6 L MCHC RDW 17.3 H Lymphocytes # Chloride 109 H Carbon Dioxide 19 L BUN 31 H Creatinine 1.67 H Glucose 109 H POC Glucose (mg/dL) Plasma Lactic Acid Allen 5.4 H* ALT 17 L Urine Protein Urine Glucose (UA) Urine Ketones Amorphous Sediment Urine Mucus 03/31/19 03/31/19 03/31/19 01:09 07:32 07:32 WBC 3.2 L RBC 3.80 L Hgb 9.6 L Hct 31.6 L MCHC 30.3 L RDW 16.4 H Lymphocytes # 0.4 L Chloride 108 H Carbon Dioxide 20 L BUN 27 H Creatinine Glucose 217 H POC Glucose (mg/dL) 170 H Plasma Lactic Acid Allen ALT Urine Protein Urine Glucose (UA) Urine Ketones Amorphous Sediment Urine Mucus 03/31/19 03/31/19 03/31/19 11:35 11:57 16:58 WBC RBC Hgb Hct MCHC RDW Lymphocytes # Chloride Carbon Dioxide BUN Creatinine Glucose POC Glucose (mg/dL) 160 H 132 H Plasma Lactic Acid Allen ALT Urine Protein Trace H Urine Glucose (UA) 4+ H Urine Ketones Trace H Amorphous Sediment Rare H Urine Mucus Rare H - Diagnostic Findings Additional findings: CT head and cervical spine without contrast 03/30/2019. Multilevel spondylitic changes in her cervical spine. No acute fracture. No acute intracranial abnormality seen. No intracranial hemorrhage. I have reviewed neuroimages myself. Assessment and Plan Assessment: Seizure disorder- seizure-free for 20+ years not on major AED. His Lyrica is used as a neuropathic pain medicine and not for seizure prophylaxis, which by the way is only FDA approved as adjunct and not monotherapy. Plan: -Can continue Lyrica from outpatient, primarily for the treatment of neuropathic pain -EEG in am -Seizure precautions -No driving or other activity restrictions as he has had any any breakthrough seizure for 20+ years -If his EEG is normal, no further inpatient neuro work-up/recs will be necessary -d/w patient in detail. All questions answered. Thank you for this consultation. Please call with ?. Time with Patient: Greater than 30 (Time spent in direct patient care, greater than 50% of which was spent in [id number] counseling and coordination of care: 70 minutes)
[2019-03-31 21:20] LABS: Glucose,Whole Blood 192 mg/dL (75-99)
[2019-03-31] MEDS: MELATONIN 5 MG TABLET PO SCH (21:56)
[2019-04-01 05:15] LABS: Anisocytosis Slight; Basophils % (A) 0 %; Eosinophils # (A) 0.1 k/uL (0-0.7); Eosinophils % (A) 1 %; HCT 28.3 % (39.0-53.0); HGB 9.3 gm/dL (13.0-17.5); Hypochromasia Slight; Lymphocytes % (A) 16 %; MCH 26.7 pg (25.0-35.0); MCHC 32.8 g/dL (31.0-37.0); MCV 81.5 fL (80.0-100.0); Mean Platelet Volume 7.2; Monocytes # (A) 0.4 k/uL (0-1.0); Monocytes % (A) 6 %; Neutrophils # (A) 4.7 k/uL (1.3-7.7); Neutrophils % (A) 76 %; Platelet Count 207 k/uL (150-450); RBC 3.47 m/uL (4.30-5.90); RDW 17.1 % (11.5-15.5); WBC 6.3 k/uL (3.8-10.6)
[2019-04-01 05:38] LABS: Albumin 3.8 g/dL (3.5-5.0); Calcium 9.4 mg/dL (8.4-10.2); Potassium 4.3 mmol/L (3.5-5.1); Total Bilirubin 0.3 mg/dL (0.2-1.3); Total Protein 6.3 g/dL (6.3-8.2)
[2019-04-01] MEDS ORDERED: VANCOMYCIN 1,500 MG in SODIUM CHLORIDE 0.9% 250 ML IVPB SCH (06:00)
[2019-04-01 06:53] LABS: Glucose,Whole Blood 106 mg/dL (75-99)
[2019-04-01] MEDS: INSULIN ASPART (NovoLOG) 100 UNIT/ML VIAL SQ SCH ×4 (06:55→21:04)
[2019-04-01] MEDS: IPRATROPIUM-ALBUTEROL 3 ML NEB INHALATION SCH ×3 (07:30→19:16)
[2019-04-01] MEDS: SYMBICORT 160-4.5 MCG INHALER INHALATION SCH ×2 (07:30→19:16)
[2019-04-01] MEDS: ASPIRIN 81 MG PO SCH (09:39)
[2019-04-01] MEDS: CLOPIDOGREL 75 MG TAB PO SCH (09:39)
[2019-04-01] MEDS: HYDROcodone/APAP 10-325MG 1 EACH TAB PO PRN ×2 (09:40→21:08)
[2019-04-01] MEDS: ISOSORBIDE MONONITRATE ER 60 MG TAB.ER.24H PO SCH (09:40)
[2019-04-01] MEDS: METOPROLOL TARTRATE 25 MG TAB PO SCH ×2 (09:40→21:04)
[2019-04-01] MEDS: PREGABALIN 75 MG CAP PO SCH ×2 (09:40→21:04)
--- NOTE | 2019-04-01 10:36 | ECHOF ---
Referral Reason:Chest pain and cardiomyopathy MEASUREMENTS -------- HEIGHT: 167.6 cm WEIGHT: 81.6 kg BP: 119/74 RVIDd: 3.4 cm (< 3.3) IVSd: 1.3 cm (0.6 - 1.1) LVIDd: 5.3 cm (3.9 - 5.3) LVPWd: 1.4 cm (0.6 - 1.1) IVSs: 1.9 cm LVIDs: 3.5 cm LVPWs: 1.9 cm LA Diam: 3.6 cm (2.7 - 3.8) LAESV Index (A-L): 32.07 ml/m Ao Diam: 4.3 cm (2.0 - 3.7) AV Cusp: 2.2 cm (1.5 - 2.6) MV EXCURSION: 17.354 mm (> 18.000) MV EF SLOPE: 90 mm/s (70 - 150) EPSS: 1.0 cm MV E Jose: 1.17 m/s MV DecT: 249 ms MV A Jose: 0.96 m/s MV E/A Ratio: 1.22 AV maxP.73 mmHg AV meanP.47 mmHg RAP: 5.00 mmHg RVSP: 32.85 mmHg TAPSE: 11.32 mm FINDINGS -------- Sinus rhythm. This was a technically adequate study. The left ventricular size is normal. There is mild concentric left ventricular hypertrophy. Overa ll left ventricular systolic function is normal with, an EF between 55 - 60 %. The right ventricle is mildly enlarged. LA is midly dilated 29-33ml/m2. The right atrial size is normal. Interatrial and interventricular septum intact. The aortic valve is trileaflet, and appears structurally normal. No aortic stenosis or regurgitation. The mitral valve leaflets are mildly thickened. Mild mitral regurgitation is present. Mild tricuspid regurgitation present. Right ventricular systolic pressure is normal at < 35 mmHg. The pulmonic valve was not well visualized. The aortic root is dilated measuring 4.3cm. Normal inferior vena cava with normal inspiratory collapse consistent with estimated right atrial pre ssure of 5 mmHg. The inferior vena cava is mildly dilated. There is no pericardial effusion. CONCLUSIONS -------- 1. Sinus rhythm. 2. This was a technically adequate study. 3. The left ventricular size is normal. 4. There is mild concentric left ventricular hypertrophy. 5. Overall left ventricular systolic function is normal with, an EF between 55 - 60 %. 6. 7. The right ventricle is mildly enlarged. 8. LA is midly dilated 29-33ml/m2. 9. The aortic valve is trileaflet, and appears structurally normal. No aortic stenosis or regurgitati on. 10. The mitral valve leaflets are mildly thickened. 11. Mild mitral regurgitation is present. 12. Mild tricuspid regurgitation present. 13. Right ventricular systolic pressure is normal at < 35 mmHg. 14. The pulmonic valve was not well visualized. 15. The aortic root is dilated measuring 4.3cm. 16. Normal inferior vena cava with normal inspiratory collapse consistent with estimated right atrial pressure of 5 mmHg. 17. The inferior vena cava is mildly dilated. 18. There is no pericardial effusion. REIMBURSEMENT COORDINATOR: Mónica Acosta RDCS
[2019-04-01 11:43] LABS: Urine Alcohol Negative (Negative); Urine Barbiturate Negative (Negative); Urine Cocaine Negative (Negative); Urine Methadone Negative (Negative); Urine Opiates Positive (Negative); Urine Phencyclidine Negative (Negative)
[2019-04-01 11:46] LABS: Glucose,Whole Blood 98 mg/dL (75-99)
--- NOTE | 2019-04-01 13:17 | P.PN ---
Subjective Progress Note Date: 04/01/19 Matthieu Thomas is a 68-year-old male who presented to [facility] emergency room with a chief complaint of chest pain and shortness of breath, patient states that he was at the bar singing karaoke when he started having difficulty breathing and dry cough patient also developed diaphoresis, he went to his car but couldn't get his banegas to open his car so he decided to walk 4 blocks to his uncle's house, during that patient developed epigastric pain and worsening shortness of breath, he was stumbling and had fell at least once, patient reached his uncle's house and EMS were called and he was brought into emergency room. In the emergency room patient was evaluated, he was afebrile heart rate was 81 respiration rate 22 blood pressure 138/59 and pulse ox 97% on room air his EKG revealed normal sinus rhythm with nonspecific ST and T-wave abnormality, chest x-ray revealed mild interstitial infiltrates at the lung bases, white blood count was normal troponin level was negative, lactic acid was 5.4, BUN and creatinine were elevated at 31 and 1.67, patient was admitted to telemetry floor for further evaluation. 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 Garcia. Patient also has a known history of degenerative disc disease with chronic back pain he has a pain stimulator implanted. Patient also has a known history of seizure disorder. On 04/01/2019 patient's alert and oriented 3. Patient is resting comfortably in bed. Mentation has returned to baseline. Awaiting EEG results to rule out seizure activity per neurology. Patient to be transferred out of the intensive care unit. At this time patient denies chest pain or shortness of breath. Patient denies nausea vomiting or diarrhea. Patient denies any urinary burning or frequency. Objective - Vital Signs Vital signs: Vital Signs Temp 97.6 F 04/01/19 08:00 Pulse 72 04/01/19 13:00 Resp 12 04/01/19 08:00 BP 107/71 04/01/19 08:00 Pulse Ox 95 04/01/19 04:00 Intake & Output 03/31/19 04/01/19 04/01/19 18:59 06:59 18:59 Intake Total 520 Output Total 500 Balance 20 Weight 83.8 kg Intake: IV 20 0.9 NS KVO 20 Oral 500 Output: Urine 500 Other: Voiding Method Toilet Toilet # Voids 3 2 3 # Bowel Movements 1 - Exam In general patient is alert and oriented 3 in no apparent distress HEENT head normocephalic and atraumatic Neck is supple no JVD no goiter no lymphadenopathy Chest exam reveals a few scattered rhonchi no wheezing Cardiac exam reveals regular heart sounds S1 and S2 no gallops no murmurs Abdomen is soft with epigastric tenderness no palpable organomegaly no palpable masses with normal bowel sounds Extremity exam reveals minimal edema no cyanosis or clubbing Neurological examination reveals no gross focal deficit - Labs CBC & Chem 7: 04/01/19 04:43 04/01/19 04:44 Labs: Abnormal Lab Results - Last 24 Hours (Table) 03/31/19 03/31/19 03/31/19 Range/Units 11:35 16:58 21:08 RBC (4.30-5.90) m/uL Hgb (13.0-17.5) gm/dL Hct (39.0-53.0) % RDW (11.5-15.5) % Chloride (98-107) mmol/L Carbon Dioxide (22-30) mmol/L BUN (9-20) mg/dL Glucose (74-99) mg/dL POC Glucose (mg/dL) 132 H 192 H (75-99) mg/dL Urine Opiates Screen Positive H (Negative) ng/mL 04/01/19 04/01/19 04/01/19 Range/Units 04:43 04:44 06:52 RBC 3.47 L (4.30-5.90) m/uL Hgb 9.3 L (13.0-17.5) gm/dL Hct 28.3 L (39.0-53.0) % RDW 17.1 H (11.5-15.5) % Chloride 108 H (98-107) mmol/L Carbon Dioxide 21 L (22-30) mmol/L BUN 24 H (9-20) mg/dL Glucose 107 H (74-99) mg/dL POC Glucose (mg/dL) 106 H (75-99) mg/dL Urine Opiates Screen (Negative) ng/mL Microbiology - Last 24 Hours (Table) 03/31/19 00:34 Blood Culture - Preliminary Blood No Growth after 24 hours Assessment and Plan Assessment: #1 episode of chest pain, no significant abnormality on EKG troponin levels are negative, cardiology consult was requested, echocardiogram was ordered, patient has a known history of coronary artery disease with angioplasty and stent placement in June 2018 he is maintained on Plavix. 2-D echo completed showing an EF of 55-60%. #2 dehydration was acute renal failure with elevated BUN and creatinine patient started on IV fluid Will monitor kidney function closely. Creatinine improving to 1.18 and bun 24 #3 epigastric pain, cause is unclear will check computed tomography scan of the abdomen and pelvis without IV contrast, will check amylase and lipase level. Amylase and lipase within normal limits. CT of abdomen and pelvis completed showing minimal right middle lobe airspace disease small right-sided effusion. No evidence of hydronephrosis or nephrolithiasis extensive diverticulosis of left-sided: Postsurgical and degenerative changes involving lumbar spine. Symptoms have resolved #4 shortness of breath possibly related to acute bronchitis. patient has a known history of COPD, pulmonary consultation was requested, chest x-ray showing by basilar infiltrates. patient started on azithromycin and Rocephin. Pulmonary services following. #5 elevated lactic acid at 5.4. Repeat lactic acid 1.2 #6 previous history of congestive heart failure #7 history of seizure disorder, patient is on Lyrica but otherwise no seizure medications, will obtain EEG and neurology consult. EEG taken awaiting final results #8 underlying history of hypertension maintained on metoprolol, well-controlled #9 underlying history of hyperlipidemia maintained on Lipitor 80 mg #10 degenerative disc disease with chronic back pain maintained on fentanyl patch and has a pain stimulator implanted GI prophylaxis Pepcid. DVT prophylaxis heparin I performed an examination of the patient and discussed their management with the Nurse Practitioner. I have reviewed the Nurse Practitioner's notes and agree with the documented findings and plan of care
--- NOTE | 2019-04-01 15:15 | EEG ---
ELECTROENCEPHALOGRAM REPORT DATE OF TESTIN04/01/2019. CLINICAL PROBLEM: Remote history of seizures with his last seizure more than 20 years ago. The patient is on pregabalin, primarily for pain control. EEG was requested to rule out epileptic activity. MEDICATIONS: Lyrica, metoprolol, isosorbide, melatonin, insulin, acetaminophen, fentanyl, clopidogrel, Symbicort, aspirin, albuterol. TYPE OF RECORDING: Bedside tracing using the 10-20 international electrode placement system. No sedation was given prior to the beginning of this recording. FINDINGS: At the beginning of this recording, there is generalized theta slowing in the background. There is then appearance of a symmetric posterior alpha rhythm that attenuates on eye opening and returns upon eye closure. Photic stimulation does not elicit a driving response. Hyperventilation is not performed in this recording. There is no definitive sleep architecture seen. There is no background asymmetry, ictal or interictal patterns appreciated in this recording. IMPRESSION: This is a normal awake/drowsy electroencephalogram without background asymmetry or epileptiform discharges. Clinical correlation is advised. RENETTA / BELKYS: [id number] / ABDELRAHMAN
--- NOTE | 2019-04-01 15:58 | P.PN ---
Subjective Progress Note Date: 04/01/19 On 03/29/2019 and seeing this patient for a follow-up. Is feeling much better. He shortness of breath is improved. No cough or sputum production. No chest that is so wheezing. No altered mentation. In fact his mental status is back to its baseline. An EEG was done by neurology and is also suspected pending for now. Clinically however, we haven't seen any signs of seizure activity. The patient remains hemodynamically stable. He is requesting to be discharged out of the hospital. No nausea. No vomiting. No abdominal pain. No chest pain. No palpitation. No syncope. No other significant events otherwise. Noted the patient came in initially for shortness of breath. He was having some difficulties in breathing. His cardiac enzymes were negative. Echo of the heart was within normal limits. His CAT scan of the abdomen showed a minimal right middle lobe airspace disease. Small right-sided pleural effusion. No evidence of an hydronephrosis or nephrolithiasis. There was extensive diverticulosis of the left colon. CAT scan of the head and cervical spine was all within normal limits. Objective - Vital Signs Vital signs: Vital Signs Temp 97.6 F 04/01/19 08:00 Pulse 72 04/01/19 13:00 Resp 16 04/01/19 12:00 BP 107/71 04/01/19 12:00 Pulse Ox 96 04/01/19 12:00 Intake & Output 03/31/19 04/01/19 04/01/19 18:59 06:59 18:59 Intake Total 520 Output Total 500 Balance 20 Weight 83.8 kg Intake: IV 20 0.9 NS KVO 20 Oral 500 Output: Urine 500 Other: Voiding Method Toilet Toilet # Voids 3 2 3 # Bowel Movements 1 - Exam The patient appeared well nourished and normally developed. Vital signs as documented. Head exam is unremarkable. No scleral icterus or corneal arcus noted. Neck is without jugular venous distension, thyromegaly, or carotid bruits. Carotid upstrokes are brisk bilaterally. Lungs are diminished and there is some few scattered expiratory wheezes upon forceful extremity maneuvers. She'll crackles in the lung bases. Otherwise within normal limits. Breath s ounds equal and symmetrical. Cardiac exam reveals the PMI to be normally sized and situated. Rhythm is regular. First and second heart sounds normal. No murmurs, rubs or gallops. Abdominal exam reveals normal bowel sounds, no masses, no organomegaly and no aortic enlargement. Extremities are nonedematous and both femoral and pedal pulses are normal.Examination of the skin revealed no evidence of significant rashes, suspicious appearing nevi or other concerning lesions. Neurologically the patient is awake and alert and there is no focal neurological deficits. - Labs CBC & Chem 7: 04/01/19 04:43 04/01/19 04:44 Labs: Abnormal Lab Results - Last 24 Hours (Table) 03/31/19 03/31/19 03/31/19 Range/Units 11:35 16:58 21:08 RBC (4.30-5.90) m/uL Hgb (13.0-17.5) gm/dL Hct (39.0-53.0) % RDW (11.5-15.5) % Chloride (98-107) mmol/L Carbon Dioxide (22-30) mmol/L BUN (9-20) mg/dL Glucose (74-99) mg/dL POC Glucose (mg/dL) 132 H 192 H (75-99) mg/dL Urine Opiates Screen Positive H (Negative) ng/mL 04/01/19 04/01/19 04/01/19 Range/Units 04:43 04:44 06:52 RBC 3.47 L (4.30-5.90) m/uL Hgb 9.3 L (13.0-17.5) gm/dL Hct 28.3 L (39.0-53.0) % RDW 17.1 H (11.5-15.5) % Chloride 108 H (98-107) mmol/L Carbon Dioxide 21 L (22-30) mmol/L BUN 24 H (9-20) mg/dL Glucose 107 H (74-99) mg/dL POC Glucose (mg/dL) 106 H (75-99) mg/dL Urine Opiates Screen (Negative) ng/mL Microbiology - Last 24 Hours (Table) 03/31/19 00:34 Blood Culture - Preliminary Blood No Growth after 24 hours Assessment and Plan Plan: 1 shortness of breath most likely on the basis of an acute COPD exacerbation. Questionable right midlung pulmonary infiltrate/consolidation/pneumonia. Clinically improved. Doubt any cardiac condition, the readings is increased shortness of breath. The patient's cardiac enzymes is a been negative. 2-D echo was within normal limits with a preserved ejection fraction of 55%. He is known to have coronary artery disease presents requesting a stenting that was done June 2018. EKG is not showing any acute abnormalities. 2 epigastric pain, recovered. CAT scan of the abdomen showing diverticulosis 3 thyroid right-sided pleural effusion 4 lactic acidosis improved and lactic acid was 5.4 and dropped down to 1.2 5 dehydration improved and the creatinine also is down to 1.1 6 history of seizure disorder, neurologist on the case 7 hypertension 8 hyperlipidemia 9 chronic back pain and patient has undergone a pain stimulator insertion for chronic back pain. Degenerative disc disease and chronic back pain. Plan The patient is doing clinically very well. Continue Rocephin and Zithromax. Continue DuoNeb nebulized she metastases on the clock. Echocardiogram was noted. The workup ordered was noted. Awaiting the final results of the EEG. Acute kidney injury has recovered in the creatinine is normalized. Lactic acid levels are normalized. The patient was resuscitated. The patient will be chest without to a medical floor.
--- NOTE | 2019-04-01 16:38 | P.PN ---
Subjective Progress Note Date: 04/01/19 Principal diagnosis: remote seizure disorder EEG. No seizure. No new neuro c/o. Objective - Vital Signs Vital signs: Vital Signs Temp 97.6 F 04/01/19 08:00 Pulse 72 04/01/19 13:00 Resp 16 04/01/19 12:00 BP 107/71 04/01/19 12:00 Pulse Ox 96 04/01/19 12:00 Intake & Output 03/31/19 04/01/19 04/01/19 18:59 06:59 18:59 Intake Total 520 Output Total 500 Balance 20 Weight 83.8 kg Intake: IV 20 0.9 NS KVO 20 Oral 500 Output: Urine 500 Other: Voiding Method Toilet Toilet # Voids 3 2 3 # Bowel Movements 1 - Exam Gen NAD Pleasant and cooperative MS A+Ox4 Normal speech CN II-XII grossly intact no nystagmus Motor Normal bulk/tone No tremors SANCHEZ x4 Sens Intact to LT x4 Coord Not tested DTRs 2+/4 sym throughout Gait Deferred - Labs CBC & Chem 7: 04/01/19 04:43 04/01/19 04:44 Labs: Abnormal Lab Results - Last 24 Hours (Table) 03/31/19 03/31/19 03/31/19 Range/Units 11:35 16:58 21:08 RBC (4.30-5.90) m/uL Hgb (13.0-17.5) gm/dL Hct (39.0-53.0) % RDW (11.5-15.5) % Chloride (98-107) mmol/L Carbon Dioxide (22-30) mmol/L BUN (9-20) mg/dL Glucose (74-99) mg/dL POC Glucose (mg/dL) 132 H 192 H (75-99) mg/dL Urine Opiates Screen Positive H (Negative) ng/mL 04/01/19 04/01/19 04/01/19 Range/Units 04:43 04:44 06:52 RBC 3.47 L (4.30-5.90) m/uL Hgb 9.3 L (13.0-17.5) gm/dL Hct 28.3 L (39.0-53.0) % RDW 17.1 H (11.5-15.5) % Chloride 108 H (98-107) mmol/L Carbon Dioxide 21 L (22-30) mmol/L BUN 24 H (9-20) mg/dL Glucose 107 H (74-99) mg/dL POC Glucose (mg/dL) 106 H (75-99) mg/dL Urine Opiates Screen (Negative) ng/mL Microbiology - Last 24 Hours (Table) 03/31/19 00:34 Blood Culture - Preliminary Blood No Growth after 24 hours Assessment and Plan Assessment: Seizure disorder- seizure-free for 20+ years not on major AED. EEG negative. Plan: -Can continue Lyrica from outpatient, primarily for the treatment of neuropathic pain -EEG normal -Seizure precautions -No driving or other activity restrictions as he has had any any breakthrough seizure for 20+ years -Since his EEG is normal, no further inpatient neuro work-up/recs will be necessary -d/w patient in detail. All questions answered -Stable for discharge from acute neuro standpoint. Will revisit patient prn. Please call with new ?. Thank you again for this consultation. Time with Patient: Less than 30 (Time spent in direct patient care, greater than 50% of which was spent in brat-di-yujy counseling and coordination of care: 25 minutes)
--- NOTE | 2019-04-01 17:07 | P.PN ---
Subjective Progress Note Date: 04/01/19 This 68-year-old gentleman was admitted with acute shortness of breath and altered mental status and near syncopal episodes. It appears that patient developed respiratory distress related to COPD and possible pneumonia. No evidence of any CHF. Echo Cardigan showed good LV function. Cardiac enzymes are negative. He is being treated for possible pneumonia. From Cardec standpoint patient is stable. We'll follow him as needed Objective - Vital Signs Vital signs: Vital Signs Temp 97.6 F 04/01/19 08:00 Pulse 72 04/01/19 13:00 Resp 16 04/01/19 12:00 BP 107/71 04/01/19 12:00 Pulse Ox 96 04/01/19 12:00 Intake & Output 03/31/19 04/01/19 04/01/19 18:59 06:59 18:59 Intake Total 520 Output Total 500 Balance 20 Weight 83.8 kg Intake: IV 20 0.9 NS KVO 20 Oral 500 Output: Urine 500 Other: Voiding Method Toilet Toilet # Voids 3 2 3 # Bowel Movements 1 - Exam GENERAL EXAM: Patient is alert and oriented and doesn't appear to be in any acute distress HEENT: Normocephalic. Normal reaction of pupils, equal size, normal range of extraocular motion. No erythema or exudates in the throat. NECK: No masses, no nuchal rigidity. CHEST: No chest wall deformity. LUNGS: Equal air entry with no crackles or wheeze. HEART: S1 and S2 normal with no audible mumurs or gallops. Regular rhythm, femorals equal on both sides.. ABDOMEN: No hepatosplenomegaly, normal bowel sounds, no guarding or rigidity. SKIN: No rashes CENTRAL NERVOUS SYSTEM: No focal deficits. EXTREMITIES: No cyanosis, clubbing or edema. - Labs CBC & Chem 7: 04/01/19 04:43 04/01/19 04:44 Labs: Abnormal Lab Results - Last 24 Hours (Table) 03/31/19 03/31/19 04/01/19 Range/Units 11:35 21:08 04:43 RBC 3.47 L (4.30-5.90) m/uL Hgb 9.3 L (13.0-17.5) gm/dL Hct 28.3 L (39.0-53.0) % RDW 17.1 H (11.5-15.5) % Chloride (98-107) mmol/L Carbon Dioxide (22-30) mmol/L BUN (9-20) mg/dL Glucose (74-99) mg/dL POC Glucose (mg/dL) 192 H (75-99) mg/dL Urine Opiates Screen Positive H (Negative) ng/mL 04/01/19 04/01/19 Range/Units 04:44 06:52 RBC (4.30-5.90) m/uL Hgb (13.0-17.5) gm/dL Hct (39.0-53.0) % RDW (11.5-15.5) % Chloride 108 H (98-107) mmol/L Carbon Dioxide 21 L (22-30) mmol/L BUN 24 H (9-20) mg/dL Glucose 107 H (74-99) mg/dL POC Glucose (mg/dL) 106 H (75-99) mg/dL Urine Opiates Screen (Negative) ng/mL Microbiology - Last 24 Hours (Table) 03/31/19 00:34 Blood Culture - Preliminary Blood No Growth after 24 hours Assessment and Plan Assessment: Patient is admitted with shortness of breath, abdominal discomfort and concern about mental status changes. So far his cardiac enzymes are negative and EKG did not reveal any acute changes. Chest x-ray showed possible infiltrate. Patient is back to normal today. I'll get an echocardiogram. If that doesn't show any acute changes, patient could be discharged home from [facility] standpoint. Follow-up with Dr. Bolivar. Patient is critically stable. Is being treated for pneumonia. Echo showed no rmal LV function. We'll follow as needed
[2019-04-01 17:17] LABS: Glucose,Whole Blood 115 mg/dL (75-99)
[2019-04-01] MEDS: TAMSULOSIN 0.4 MG CAP.ER.24H PO SCH (18:51)
[2019-04-01 20:47] LABS: Glucose,Whole Blood 130 mg/dL (75-99)
[2019-04-01] MEDS: MELATONIN 5 MG TABLET PO SCH (21:04)
[2019-04-01] MEDS: HEPARIN SODIUM,PORCINE 5,000 UNIT/ML 1 ML VIAL SQ SCH (21:05)
[2019-04-02 00:49] VITALS: RESP 16
[2019-04-02 07:22] LABS: Glucose,Whole Blood 95 mg/dL (75-99)
[2019-04-02 08:23] LABS: Anisocytosis Slight; Basophils % (A) 1 %; Eosinophils # (A) 0.3 k/uL (0-0.7); Eosinophils % (A) 6 %; HCT 31.6 % (39.0-53.0); HGB 10.1 gm/dL (13.0-17.5); Hypochromasia Slight; Lymphocytes # (A) 1.8 k/uL (1.0-4.8); Lymphocytes % (A) 35 %; MCH 25.8 pg (25.0-35.0); MCHC 31.8 g/dL (31.0-37.0); MCV 81.3 fL (80.0-100.0); Mean Platelet Volume 7.3; Monocytes # (A) 0.3 k/uL (0-1.0); Monocytes % (A) 6 %; Neutrophils # (A) 2.5 k/uL (1.3-7.7); Neutrophils % (A) 49 %; Platelet Count 219 k/uL (150-450); RBC 3.89 m/uL (4.30-5.90); RDW 16.5 % (11.5-15.5); WBC 5.1 k/uL (3.8-10.6)
[2019-04-02] MEDS: INSULIN ASPART (NovoLOG) 100 UNIT/ML VIAL SQ SCH ×2 (08:31→12:48)
[2019-04-02 08:48] LABS: Calcium 9.8 mg/dL (8.4-10.2); Potassium 4.6 mmol/L (3.5-5.1); Total Bilirubin 0.4 mg/dL (0.2-1.3); Total Protein 6.7 g/dL (6.3-8.2)
[2019-04-02] MEDS ORDERED: FAMOTIDINE 20 MG TAB PO SCH (09:00)
[2019-04-02] MEDS ORDERED: AZITHROMYCIN 500 MG in SODIUM CHLORIDE 0.9% 250 ML IVPB SCH (09:00)
[2019-04-02] MEDS: IPRATROPIUM-ALBUTEROL 3 ML NEB INHALATION SCH ×2 (09:14→12:55)
[2019-04-02] MEDS: SYMBICORT 160-4.5 MCG INHALER INHALATION SCH (09:14)
[2019-04-02] MEDS: HYDROcodone/APAP 10-325MG 1 EACH TAB PO PRN (09:29)
[2019-04-02] MEDS: ASPIRIN 81 MG PO SCH (09:29)
[2019-04-02] MEDS: CLOPIDOGREL 75 MG TAB PO SCH (09:29)
[2019-04-02] MEDS: METOPROLOL TARTRATE 25 MG TAB PO SCH (09:29)
[2019-04-02] MEDS: HEPARIN SODIUM,PORCINE 5,000 UNIT/ML 1 ML VIAL SQ SCH (09:29)
[2019-04-02] MEDS: ISOSORBIDE MONONITRATE ER 60 MG TAB.ER.24H PO SCH (09:29)
[2019-04-02] MEDS: PREGABALIN 75 MG CAP PO SCH (09:29)
--- NOTE | 2019-04-02 09:35 | XR ---
EXAMINATION TYPE: XR chest 2V DATE OF EXAM: 04/02/2019 COMPARISON: 03/30/2019 HISTORY: 68 year-old male shortness of breath, follow-up infiltrates TECHNIQUE: Frontal and lateral views FINDINGS: Heart upper limits of normal in size. Some mild patchy bibasilar opacities persist. Hyperinflation wi th flattening of the hemidiaphragms on the lateral view. Spinal stimulator array centered along the m id thoracic spinal canal. Partially visualized left total shoulder arthroplasty. IMPRESSION: COPD and similar mild patchy atelectasis versus infiltrates in the lower lungs.
--- NOTE | 2019-04-02 11:15 | CDI ---
Documentation Clarification Form Date: 04/02/2019 11:02:18 AM From: Anamaria WardRoldanSUNITA juan, CCDS Admit Date: 03/31/2019 12:12:00 AM Patient Name: Matthieu Thomas Visit Number: [id number] Discharge Date: ATTENTION: The Clinical Documentation Specialists (CDI) and [facility] Coding Staff appreciate your assistance in clarifying documentation. Please respond to the clarification below the line at the bottom and electronically sign. The CDI & [facility] Coding staff will review the response and follow-up if needed. Please note: Queries are made part of the Legal Health Record. If you have any questions, please contact the author of this message via ITS. Dr. Ilene Franks: Pneumonia is documented in the ED note, the History & Physical & the Consult note as a history of. Per the 04/01 pulmonary progress note: "shortness of breath most likely on the basis of an acute COPD exacerbation. Questionable right mid lung pulmonary infiltrate/consolidation/pneumonia." Per the 04/01 cardiology progress note: "Patient is critically stable. Is being treated for pneumonia." History/Risk Factors: Pneumonia, COPD, [place], CHF, history of pleural-based lesions in right lung. History of seizure disorder, seizure free 20+ years. History of DDD & pain stimulator. Clinical Indicators: Presented with episode of chest pain, dehydration, acute renal failure, epigastric pain unclear cause, SOB with known COPD, elevated lactic acid & history of CHF. Vital signs: T 98.0, P 81, R 22-25^ (SOB), BP 138/59, PO 97 - 93 2Lnc WBC: Hgb 10.5*, Hct 32.6*, Cl 109^, BUN 31^, Cr 1.67^, Glucose 109^, Lactic Acid 5.4^^. CXR: Mild interstitial infiltrates & atelectasis at the lung bases new compared to old exam. Stable right middle lobe scarring. Treatment: INH Albuterol, IV MagSulfate, IV Solumedrol, Nitropaste, IV fluid bolus, IV Zosyn, IV Vancomycin In order to capture the severity of condition, please clarify if the condition signifies and you are treating for: Pneumonia is ruled out Pneumonia is ruled in: o Viral Pneumonia, specify casual organism (if known) o Healthcare Acquired Pneumonia, unspecified o Other, please specify o Unable to determine (Last Revision: October 2017) Pneumonia is ruled out MTDD
[2019-04-02 12:00] LABS: Glucose,Whole Blood 105 mg/dL (75-99)
--- NOTE | 2019-04-02 12:43 | P.PN ---
Subjective Progress Note Date: 04/02/19 Principal diagnosis: Shortness of breath, likely related to COPD exacerbation, questionable right lung pulmonary infiltrate On 04/02/2019 patient seen in follow-up on medical surgical floor. He is awake and alert, oriented 3, in no acute distress, room air pulse ox is 93%, no fever or chills, his breathing is improving, on today's exam there is still some scattered end expiratory wheezes, but overall sounds less bronchospastic, less dyspneic, patient has been tolerating ambulation, no acute events overnight. No complaints of chest pain. Todays labs have been reviewed, slightly worsening patient's renal profile, creatinine of 1.34. No fever or chills, patient has been treated with the nebulized bronchodilators, and primary team has added some empiric antibiotics. Blood culture has shown no growth. From pulmonary perspective patient is stable for discharge home today with follow-up with Dr. Sauer any office Objective - Vital Signs Vital signs: Vital Signs Temp 97.9 F 04/02/19 05:07 Pulse 68 04/02/19 09:25 Resp 16 04/02/19 05:07 BP 109/62 04/02/19 05:07 Pulse Ox 93 L 04/02/19 05:07 Intake & Output 04/01/19 04/02/19 04/02/19 18:59 06:59 18:59 Intake Total 50 540 Balance 50 540 Intake: IV 50 cefTRIAXone 1 gm In 50 Sodium Chloride 0.9% 50 ml @ 100 mls/hr IVPB Q24HR [facility] Rx#:[id number] Oral 540 Other: Voiding Method Toilet # Voids 3 2 2 - Exam GENERAL EXAM: Alert, pleasant, 68-year-old white male,, comfortable in no apparent distress. HEAD: Normocephalic/atraumatic. EYES: Normal reaction of pupils, equal size. Conjunctiva pink, sclera white. NOSE: Clear with pink turbinates. THROAT: No erythema or exudates. NECK: No masses, no JVD, no thyroid enlargement, no adenopathy. CHEST: No chest wall deformity. Symmetrical expansion. LUNGS: Equal air entry with some scattered end expiratory wheezes, and a few rhonchi but no dullness CVS: Regular rate and rhythm, normal S1 and S2, no gallops, no murmurs, no rubs ABDOMEN: Soft, nontender. No hepatosplenomegaly, normal bowel sounds, no guarding or rigidity. EXTREMITIES: No clubbing, no edema, no cyanosis, 2+ pulses and upper and lower extremities. MUSCULOSKELETAL: Muscle strength and tone normal. SPINE: No scoliosis or deformity SKIN: No rashes CENTRAL NERVOUS SYSTEM: Alert and oriented -3. No focal deficits, tone is normal in all 4 extremities. PSYCHIATRIC: Alert and oriented -3. Appropriate affect. Intact judgment and insight. - Labs CBC & Chem 7: 04/02/19 07:57 04/02/19 07:57 Labs: Abnormal Lab Results - Last 24 Hours (Table) 04/01/19 04/01/19 04/02/19 Range/Units 17:16 20:44 07:57 RBC 3.89 L (4.30-5.90) m/uL Hgb 10.1 L (13.0-17.5) gm/dL Hct 31.6 L (39.0-53.0) % RDW 16.5 H (11.5-15.5) % BUN (9-20) mg/dL Creatinine (0.66-1.25) mg/dL POC Glucose (mg/dL) 115 H 130 H (75-99) mg/dL 04/02/19 04/02/19 Range/Units 07:57 11:52 RBC (4.30-5.90) m/uL Hgb (13.0-17.5) gm/dL Hct (39.0-53.0) % RDW (11.5-15.5) % BUN 28 H (9-20) mg/dL Creatinine 1.37 H (0.66-1.25) mg/dL POC Glucose (mg/dL) 105 H (75-99) mg/dL Microbiology - Last 24 Hours (Table) 03/31/19 00:34 Blood Culture - Preliminary Blood No Growth after 48 hours Assessment and Plan Plan: 1 shortness of breath most likely on the basis of an acute COPD exacerbation. Questionable right midlung pulmonary infiltrate/consolidation/pneumonia. Clinically improved. Doubt any cardiac condition, the readings is increased shortness of breath. The patient's cardiac enzymes is a been negative. 2-D echo was within normal limits with a preserved ejection fraction of 55%. He is known to have coronary artery disease presents requesting a stenting that was done June 2018. EKG is not showing any acute abnormalities. 2 epigastric pain, recovered. CAT scan of the abdomen showing diverticulosis 3 thyroid right-sided pleural effusion 4 lactic acidosis improved and lactic acid was 5.4 and dropped down to 1.2 5 dehydration improved and the creatinine also is down to 1.1 6 history of seizure disorder, neurologist on the case 7 hypertension 8 hyperlipidemia 9 chronic back pain and patient has undergone a pain stimulator insertion for chronic back pain. Degenerative disc disease and chronic back pain. Plan: Patient is breathing stable, vital signs are stable, he is tolerating ambulation, maintaining stable saturations on room air, only a few scattered wheezes on today's exam, no complaints of chest pain, cough or congestion, from pulmonary perspective he is stable for discharge home today, he will need follow-up with Dr. Gomez in the office, and patient will need follow-up computed tomography scan of the chest. His chest x-ray has been reviewed showing COPD and mild patchy atelectasis in the lower lungs. I performed a history & physical examination of the patient and discussed their management with my nurse practitioner, Gretta Bass. I reviewed the nurse practitioner's note and agree with the documented findings and plan of care. L kenzie sounds are positive for diminished with a few scattered breath sounds. The findings and the impression was discussed with the patient. I attest to the documentation by the nurse practitioner. Time with Patient: Less than 30
--- NOTE | 2019-04-02 13:23 | P.DS ---
Providers Date of admission: 03/31/19 00:12 Expected date of discharge: 04/02/19 Attending physician: Ilene Franks Consults: 03/31/19 00:13 Consult Physician Urgent Consulting Provider: Jerardo Sauer Consult Reason/Comments: AECOPD, hypoxic resp failure Do you want consulting provider notified?: Yes 03/31/19 06:20 Consult Physician Routine Consulting Provider: [facility] Consult Reason/Comments: Chest pain Do you want consulting provider notified?: Yes, Notify in am 03/31/19 09:53 Consult Physician Routine Consulting Provider: Karsten Hammond Consult Reason/Comments: history of seizure disorder Do you want consulting provider notified?: Yes Primary care physician: Stated None Hospital Course: Discharge diagnosis #1 episode of chest pain, no significant abnormality on EKG troponin levels are negative, cardiology consult was requested, echocardiogram was ordered, patient has a known history of coronary artery disease with angioplasty and stent placement in June 2018 he is maintained on Plavix. 2-D echo completed showing an EF of 55-60%. Cardiology cleared for discharge #2 dehydration was acute renal failure with elevated BUN and creatinine patient started on IV fluid Will monitor kidney function closely. Creatinine improving to 1.18 and bun 24. Creatinine elevated 1.37 will order serum creatinine outpatient #3 epigastric pain, cause is unclear will check computed tomography scan of the abdomen and pelvis without IV contrast, will check amylase and lipase level. Amylase and lipase within normal limits. CT of abdomen and pelvis completed showing minimal right middle lobe airspace disease small right-sided effusion. No evidence of hydronephrosis or nephrolithiasis extensive diverticulosis of left-sided: Postsurgical and degenerative changes involving lumbar spine. Symptoms have resolved #4 shortness of breath possibly related to acute bronchitis and COPD. patient has a known history of COPD, pulmonary consultation was requested, chest x-ray showing by basilar infiltrates. patient started on azithromycin and Rocephin. Pulmonary services following. Discussed the results of chest x-ray pulmonary services. No signs of infection, no antibiotics upon discharge. Patient to follow up with pulmonary services outpatient for further management. #5 elevated lactic acid at 5.4. Repeat lactic acid 1.2 #6 previous history of congestive heart failure #7 history of seizure disorder, patient is on Lyrica but otherwise no seizure medications, will obtain EEG and neurology consult. EEG showing normal awake drowsy electroencephalogram without background asymmetry or epileptiform discharge. No further workup needed and patient. Patient cleared for discharge per neurology. #8 underlying history of hypertension maintained on metoprolol, well-controlled #9 underlying history of hyperlipidemia maintained on Lipitor 80 mg #10 degenerative disc disease with chronic back pain maintained on fentanyl patch and has a pain stimulator implanted Hospital Course Matthieu Thomas is a 68-year-old male who presented to [facility] emergency room with a chief complaint of chest pain and shortness of breath, patient states that he was at the bar singing [employer] when he started having difficulty breathing and dry cough patient also developed diaphoresis, he went to his car but couldn't get his banegas to open his car so he decided to walk 4 blocks to his uncle's house, during that patient developed epigastric pain and worsening shortness of breath, he was stumbling and had fell at least once, patient reached his uncle's house and EMS were called and he was brought into emergency room. In the emergency room patient was evaluated, he was afebrile heart rate was 81 respiration rate 22 blood pressure 138/59 and pulse ox 97% on room air his EKG revealed normal sinus rhythm with nonspecific ST and T-wave abnormality, chest x-ray revealed mild interstitial infiltrates at the lung bases, white blood count was normal troponin level was negative, lactic acid was 5.4, BUN and creatinine were elevated at 31 and 1.67, patient was admitted to telemetry floor for further evaluation. Patient has a known history of coronary artery disease, he had an acute OK in June 2018 he was admitted at that time and had cardiac catheterization with angioplasty and stent placement, he also has a known history of congestive heart failure and history of COPD, he has a previous history of pneumonia, he also has known history of pleural-based lesions in the right lung followed by Dr. Garcia. Patient also has a known history of degenerative disc disease with chronic back pain he has a pain stimulator implanted. Patient also has a known history of seizure disorder. On 04/01/2019 patient's alert and oriented 3. Patient is resting comfortably in bed. Mentation has returned to baseline. Awaiting EEG results to rule out seizure activity per neurology. Patient to be transferred out of the intensive care unit. At this time patient denies chest pain or shortness of breath. Patient denies nausea vomiting or diarrhea. Patient denies any urinary burning or frequency. On 04/02/2018 patient is alert and oriented 3. Patient is resting comfortably in bed. Patient denies nausea vomiting or diarrhea. Patient denies any urinary burning or frequency. Patient denies chest pain or shortness of breath. Patient is eager to go home. Discussed treatment plan with pulmonology, no further treatment needed inpatient. Patient will follow up with pulmonology outpatient. I performed an examination of the patient and discussed their management with the Nurse Practitioner. I have reviewed the Nurse Practitioner's notes and agree with the documented findings and plan of care. Patient Condition at Discharge: Stable Plan - Discharge Summary New Discharge Prescriptions: No Action fentaNYL [Duragesic 75MCG/HR] 1 patch TRANSDERM Q72H Pregabalin [Lyrica] 150 mg PO BID Aspirin 81 mg PO DAILY #30 chew Atorvastatin [Lipitor] 80 mg PO HS Tamsulosin [Flomax] 0.4 mg PO PC-SUPPER 30 Days #30 cap.er.24h Clopidogrel [Plavix] 75 mg PO DAILY 30 Days #30 tab Budesonide/Formoterol Fumarate [Symbicort 80-4.5 Mcg Inhaler] 2 puff INHALATION RT-BID Albuterol Inhaler [Ventolin Hfa Inhaler] 1 - 2 puff INHALATION RT-Q6H PRN PRN Reason: Shortness Of Breath HYDROcodone/APAP 10-325MG [Hammon 10-325] 1 tab PO BID PRN PRN Reason: Pain Omeprazole 20 mg PO HS Metoprolol Tartrate [Lopressor] 25 mg PO BID Nitroglycerin 0.4 mg SL Q5M PRN PRN Reason: Chest Pain Isosorbide Mononitrate ER [Imdur] 60 mg PO DAILY Melatonin 10 mg PO HS Discharge Medication List Pregabalin [Lyrica] 150 mg PO BID 06/20/18 [History] fentaNYL [Duragesic 75MCG/HR] 1 patch TRANSDERM Q72H 06/20/18 [History] Aspirin 81 mg PO DAILY #30 chew 06/24/18 [Rx] Atorvastatin [Lipitor] 80 mg PO HS 10/29/18 [History] Clopidogrel [Plavix] 75 mg PO DAILY 30 Days #30 tab 11/08/18 [Rx] Tamsulosin [Flomax] 0.4 mg PO PC-SUPPER 30 Days #30 cap.er.24h 11/08/18 [Rx] Albuterol Inhaler [Ventolin Hfa Inhaler] 1 - 2 puff INHALATION RT-Q6H PRN 02/13/19 [History] Budesonide/Formoterol Fumarate [Symbicort 80-4.5 Mcg Inhaler] 2 puff INHALATION RT-BID 02/13/19 [History] HYDROcodone/APAP 10-325MG [Hammon 10-325] 1 tab PO BID PRN 02/13/19 [History] Metoprolol Tartrate [Lopressor] 25 mg PO BID 02/13/19 [History] Nitroglycerin 0.4 mg SL Q5M PRN 02/13/19 [History] Omeprazole 20 mg PO HS 02/13/19 [History] Isosorbide Mononitrate ER [Imdur] 60 mg PO DAILY 02/19/19 [History] Melatonin 10 mg PO HS 03/30/19 [History] Follow up Appointment(s)/Referral(s): None,Stated [Primary Care Provider] - 1-2 days
[2019-04-02 15:49] VITALS: BP 117/65; PULSE 66; TEMP 97.5
--- NOTE | 2019-04-03 08:25 | CDI ---
Documentation Clarification Form Date: 04/03/2019 From: Santa Guo Phone: If questions call Nori Cordoba @ [phone], Hours-8:30 am & 5 pm M- F Admit Date: 03/31/2019 12:12:00 AM Patient Name: Matthieu Thomas Visit Number: [id number] Discharge Date: 04/02/2019 2:57:00 PM ATTENTION: The Clinical Documentation Specialists (CDI) and [facility] Coding Staff appreciate your assistance in clarifying documentation. Please respond to the clarification below the line at the bottom and electronically sign. The CDI & [facility] Coding staff will review the response and follow-up if needed. Please note: Queries are made part of the Legal Health Record. If you have any questions, please contact the author of this message via ITS. Dr. Ilene Franks The diagnosis hypoxic respiratory failure was documented in the DS , but is not consistently noted in subsequent documentation. 04/[address] Woody - states "It appears that patient developed respiratory distress related to COPD and possible pneumona." History/Risk Factors: AECOPD, [place], acidosis Clinical Indicators: CO2-19, O2 sat-93/90 Treatment: Oxygen Please clarify if the above diagnosis was: Acute on chronic hypoxic respiratory failure-POA Acute hypoxic respiratory failure-POA Respiratory ruled out Other, please specify Clinically unable to determine acute on chronic hypoxic respiratory failure_POA MTDD
== END 2019-04-02 14:57 | disposition home or self-care (01) | DRG 190 ==
LOC: EC 21:10 → 3SCARD 03-31 00:12 → 2SICU 03-31 00:33 → 4MS4W 04-01 20:14
PROVIDERS: ADMIT Internal Medicine; ATTEND Internal Medicine
DX: J44.0 Chronic obstructive pulmonary disease with (acute) lower respiratory infection (principal); J96.21 Acute and chronic respiratory failure with hypoxia; N17.9 Acute kidney failure, unspecified; E87.2 Acidosis; J98.11 Atelectasis; J44.1 Chronic obstructive pulmonary disease with (acute) exacerbation; J20.9 Acute bronchitis, unspecified; I11.0 Hypertensive heart disease with heart failure; I50.9 Heart failure, unspecified; G62.9 Polyneuropathy, unspecified; R91.8 Other nonspecific abnormal finding of lung field; E86.0 Dehydration; G40.909 Epilepsy, unspecified, not intractable, without status epilepticus; I25.10 Atherosclerotic heart disease of native coronary artery without angina pectoris; K57.30 Diverticulosis of large intestine without perforation or abscess without bleeding; E78.5 Hyperlipidemia, unspecified; M51.36 Other intervertebral disc degeneration, lumbar region; G89.29 Other chronic pain; M54.9 Dorsalgia, unspecified; N40.0 Benign prostatic hyperplasia without lower urinary tract symptoms; M19.90 Unspecified osteoarthritis, unspecified site; I25.2 Old myocardial infarction; G56.03 Carpal tunnel syndrome, bilateral upper limbs; Z79.82 Long term (current) use of aspirin; Z79.51 Long term (current) use of inhaled steroids; Z79.02 Long term (current) use of antithrombotics/antiplatelets; Z79.891 Long term (current) use of opiate analgesic; Z79.899 Other long term (current) drug therapy; Z87.01 Personal history of pneumonia (recurrent); Z95.5 Presence of coronary angioplasty implant and graft; Z87.891 Personal history of nicotine dependence; Z90.49 Acquired absence of other specified parts of digestive tract; Z98.890 Other specified postprocedural states; Z96.9 Presence of functional implant, unspecified; Z80.0 Family history of malignant neoplasm of digestive organs; Z80.1 Family history of malignant neoplasm of trachea, bronchus and lung; Z82.49 Family history of ischemic heart disease and other diseases of the circulatory system; W01.0XXA Fall on same level from slipping, tripping and stumbling without subsequent striking against object, initial encounter
CPT/HCPCS: 36415; 70450; 71046; 72125; 74176; 80048; 80053; 80306; 81001; 82150; 83605; 83690; 83735; 83880; 84484; 85025; 85610; 85730; 87040; 93005; 93306; 94640; 94760; 95816; 96361; 96365; 96375; 99285

== ENCOUNTER 2019-04-04 16:15 | Inpatient (IN) | payer MEDICARE ==
--- NOTE | 2019-04-04 16:44 | ED ---
SOB HPI - General Stated Complaint: abn ekg Time Seen by Provider: 04/04/19 16:40 Source: patient, RN notes reviewed, old records reviewed Mode of arrival: wheelchair Limitations: no limitations - History of Present Illness Initial Comments: This is a 68-year-old male the ER for evaluation patient resents today for evaluation of abnormal EKG. Patient having shortness of breath. Patient was sent in by primary care.chest history of high blood pressure cholesterol [place] and COPD. No recent fever cough or congestion. MD Complaint: shortness of breath, cough -: hour(s) Severity: moderate Severity scale (1-10): 4 Consistency: constant Improves With: nothing Worsens With: nothing Known History Of: COPD, asthma Context: recent URI Associated Symptoms: denies other symptoms, chest pain, cough Treatments Prior to Arrival: none - Related Data Home Medications Medication Instructions Recorded Confirmed Pregabalin [Lyrica] 150 mg PO BID 06/20/18 04/04/19 fentaNYL [Duragesic 75MCG/HR] 1 patch TRANSDERM Q72H 06/20/18 04/04/19 Atorvastatin [Lipitor] 80 mg PO HS 10/29/18 04/04/19 Albuterol Inhaler [Ventolin Hfa 1 - 2 puff INHALATION RT-Q6H PRN 02/13/19 04/04/19 Inhaler] Budesonide/Formoterol Fumarate 2 puff INHALATION RT-BID 02/13/19 04/04/19 [Symbicort 80-4.5 Mcg Inhaler] HYDROcodone/APAP 10-325MG [[place] 1 tab PO BID PRN 02/13/19 04/04/19 10-325] Metoprolol Tartrate [Lopressor] 25 mg PO BID 02/13/19 04/04/19 Nitroglycerin 0.4 mg SL Q5M PRN 02/13/19 04/04/19 Omeprazole 20 mg PO HS 02/13/19 04/04/19 Isosorbide Mononitrate ER [Imdur] 60 mg PO DAILY 02/19/19 04/04/19 Melatonin 10 mg PO HS 03/30/19 04/04/19 Previous Rx's Medication Instructions Recorded Aspirin 81 mg PO DAILY #30 chew 06/24/18 Clopidogrel [Plavix] 75 mg PO DAILY 30 Days #30 tab 11/08/18 Tamsulosin [Flomax] 0.4 mg PO PC-SUPPER 30 Days #30 11/08/18 cap.er.24h Allergies Allergy/AdvReac Type Severity Reaction Status Date / Time No Known Allergies Allergy Verified 04/04/19 17:07 Review of Systems ROS Statement: Those systems with pertinent positive or pertinent negative responses have been documented in the HPI. ROS Other: All systems not noted in ROS Statement are negative. Past Medical History Past Medical History: Asthma, Coronary Artery Disease (CAD), Chest Pain / Angina, COPD, Hyperlipidemia, Myocardial Infarction ([place]), Osteoarthritis (OA), Pneumonia, Prostate Disorder, Seizure Disorder Additional Past Medical History / Comment(s): R lung mass-being monitored, chronic back pain, numbness/tingling arms/legs, bilateral carpal tunnel s yndrome, balance problems, BPH, seizure in 2003. Last Myocardial Infarction Date:: 06/22/18 History of Any Multi-Drug Resistant Organisms: None Reported Past Surgical History: Adenoidectomy, Back Surgery, Cholecystectomy, Heart Catheterization With Stent, Orthopedic Surgery, Tonsillectomy Additional Past Surgical History / Comment(s): Multiple back surgeries including a pain stimulator in place/hardware, R knee surgery with hardware, L rotator cuff repair x 4/cadaver bone, colonoscopy Past Anesthesia/Blood Transfusion Reactions: No Reported Reaction Date of Last Stent Placement:: 06/22/18 Past Psychological History: No Psychological Hx Reported Smoking Status: Former smoker Past Alcohol Use History: None Reported Past Drug Use History: None Reported - Past Family History Father Family Medical History: Cancer Additional Family Medical History / Comment(s): Liver cancer. Mother Additional Family Medical History / Comment(s): Brain aneurysm Sister(s) Family Medical History: Cancer Additional Family Medical History / Comment(s): Lung cancer Brother(s) Family Medical History: No Reported History Family Family Medical History: Unable to Obtain General Exam Limitations: no limitations General appearance: alert, in no apparent distress Head exam: Present: atraumatic, normocephalic, normal inspection Eye exam: Present: normal appearance, EOMI. Absent: scleral icterus, conjunctival injection, periorbital swelling ENT exam: Present: normal exam, mucous membranes moist Neck exam: Present: normal inspection. Absent: tenderness, meningismus, lymphadenopathy Respiratory exam: Present: normal lung sounds bilaterally. Absent: respiratory distress, wheezes, rales, rhonchi, stridor Cardiovascular Exam: Present: regular rate, normal rhythm, normal heart sounds. Absent: systolic murmur, diastolic murmur, rubs, gallop, clicks GI/Abdominal exam: Present: soft, normal bowel sounds. Absent: distended, tenderness, guarding, rebound, rigid Extremities exam: Present: normal inspection, full ROM, normal capillary refill. Absent: tenderness, pedal edema, joint swelling, calf tenderness Back exam: Present: normal inspection Neurological exam: Present: alert, oriented X3, CN II-XII intact Psychiatric exam: Present: normal affect, normal mood Skin exam: Present: warm, dry, intact, normal color. Absent: rash Course Vital Signs 04/04/19 04/04/19 04/04/19 16:34 17:04 17:16 Temperature 97.6 F Pulse Rate 70 67 71 Respiratory 18 Rate Blood Pressure 98/79 O2 Sat by Pulse 94 L Oximetry - Reevaluation(s) Reevaluation #1: 04/04/19 17:07 Medical record is reviewed Reevaluation #2: 04/04/19 19:14 Patient still complaining of shortness of breath no help with breathing treatments - Consultations Consultation #1: Spoke with Dr. Franks he was agreeable for admission Medical Decision Making - Medical Decision Making 68 male the ER for evaluation patient presents today for evaluation regards to shortness of breath patient be admitted for chest pain, COPD exacerbation. - Lab Data Result diagrams: 04/04/19 16:45 04/04/19 16:45 Lab Results 04/04/19 04/04/19 04/04/19 Range/Units 16:45 16:45 16:45 WBC 4.5 (3.8-10.6) k/uL RBC 4.28 L (4.30-5.90) m/uL Hgb 10.9 L (13.0-17.5) gm/dL Hct 34.2 L (39.0-53.0) % MCV 79.9 L (80.0-100.0) fL MCH 25.5 (25.0-35.0) pg MCHC 32.0 (31.0-37.0) g/dL RDW 16.0 H (11.5-15.5) % Plt Count 250 (150-450) k/uL Neutrophils % 57 % Lymphocytes % 27 % Monocytes % 6 % Eosinophils % 5 % Basophils % 2 % Neutrophils # 2.5 (1.3-7.7) k/uL Lymphocytes # 1.2 (1.0-4.8) k/uL Monocytes # 0.3 (0-1.0) k/uL Eosinophils # 0.2 (0-0.7) k/uL Basophils # 0.1 (0-0.2) k/uL PT (9.0-12.0) sec INR (<1.2) APTT (22.0-30.0) sec Sodium 138 (137-145) mmol/L Potassium 4.3 (3.5-5.1) mmol/L Chloride 105 (98-107) mmol/L Carbon Dioxide 21 L (22-30) mmol/L Anion Gap 12 mmol/L BUN 31 H (9-20) mg/dL Creatinine 1.38 H (0.66-1.25) mg/dL Est GFR (CKD-EPI)AfAm 60 (>60 ml/min/1.73 sqM) Est GFR (CKD-EPI)NonAf 52 (>60 ml/min/1.73 sqM) Glucose 96 (74-99) mg/dL Calcium 9.7 (8.4-10.2) mg/dL Magnesium 2.1 (1.6-2.3) mg/dL Total Bilirubin 0.4 (0.2-1.3) mg/dL AST 23 (17-59) U/L ALT 26 (21-72) U/L Alkaline Phosphatase 114 (38-126) U/L Troponin I (0.000-0.034) ng/mL NT-Pro-B Natriuret Pep 168 pg/mL Total Protein 7.2 (6.3-8.2) g/dL Albumin 4.3 (3.5-5.0) g/dL 04/04/19 04/04/19 Range/Units 16:45 16:45 WBC (3.8-10.6) k/uL RBC (4.30-5.90) m/uL Hgb (13.0-17.5) gm/dL Hct (39.0-53.0) % MCV (80.0-100.0) fL MCH (25.0-35.0) pg MCHC (31.0-37.0) g/dL RDW (11.5-15.5) % Plt Count (150-450) k/uL Neutrophils % % Lymphocytes % % Monocytes % % Eosinophils % % Basophils % % Neutrophils # (1.3-7.7) k/uL Lymphocytes # (1.0-4.8) k/uL Monocytes # (0-1.0) k/uL Eosinophils # (0-0.7) k/uL Basophils # (0-0.2) k/uL PT 10.1 (9.0-12.0) sec INR 0.9 (<1.2) APTT 25.5 (22.0-30.0) sec Sodium (137-145) mmol/L Potassium (3.5-5.1) mmol/L Chloride (98-107) mmol/L Carbon Dioxide (22-30) mmol/L Anion Gap mmol/L BUN (9-20) mg/dL Creatinine (0.66-1.25) mg/dL Est GFR (CKD-EPI)AfAm (>60 ml/min/1.73 sqM) Est GFR (CKD-EPI)NonAf (>60 ml/min/1.73 sqM) Glucose (74-99) mg/dL Calcium (8.4-10.2) mg/dL Magnesium (1.6-2.3) mg/dL Total Bilirubin (0.2-1.3) mg/dL AST (17-59) U/L ALT (21-72) U/L Alkaline Phosphatase (38-126) U/L Troponin I <0.012 (0.000-0.034) ng/mL NT-Pro-B Natriuret Pep pg/mL Total Protein (6.3-8.2) g/dL Albumin (3.5-5.0) g/dL - EKG Data -: EKG Interpreted by Me (EKG shows sinus rhythm with rate of 71, MT 166, QRS 80, QTC 423) - Radiology Data Radiology results: report reviewed (Chest x-rays negative for acute disease), image reviewed Disposition Clinical Impression: Chest pain, Dyspnea, Acute exacerbation of COPD with asthma Disposition: ADMITTED IP TO THIS [facility] Condition: Good Is patient prescribed a controlled substance at d/c from ED?: No Referrals: Ielne Franks MD [Primary Care Provider] - 1-2 days
[2019-04-04] MEDS ORDERED: ALBUTEROL NEBULIZED 2.5 MG/3 ML INHALATION STA (16:45)
[2019-04-04] MEDS ORDERED: methylPREDNISolone SOD SUCCI 125 MG/2 ML VIAL IV STA (16:45)
[2019-04-04] MEDS ORDERED: IPRATROPIUM 0.5 MG/2.5 ML NEBU INHALATION STA (16:45)
[2019-04-04 17:01] LABS: Basophils # (A) 0.1 k/uL (0-0.2); Basophils % (A) 2 %; Eosinophils # (A) 0.2 k/uL (0-0.7); Eosinophils % (A) 5 %; HCT 34.2 % (39.0-53.0); HGB 10.9 gm/dL (13.0-17.5); Lymphocytes # (A) 1.2 k/uL (1.0-4.8); Lymphocytes % (A) 27 %; MCH 25.5 pg (25.0-35.0); MCV 79.9 fL (80.0-100.0); Mean Platelet Volume 7.7; Monocytes # (A) 0.3 k/uL (0-1.0); Monocytes % (A) 6 %; Neutrophils # (A) 2.5 k/uL (1.3-7.7); Neutrophils % (A) 57 %; Platelet Count 250 k/uL (150-450); RBC 4.28 m/uL (4.30-5.90); WBC 4.5 k/uL (3.8-10.6)
[2019-04-04 17:10] LABS: Albumin 4.3 g/dL (3.5-5.0); Calcium 9.7 mg/dL (8.4-10.2); INR 0.9 (<1.2); Magnesium 2.1 mg/dL (1.6-2.3); Partial Thromboplastin Time 25.5 sec (22.0-30.0); Potassium 4.3 mmol/L (3.5-5.1); Prothrombin Time 10.1 sec (9.0-12.0); Total Bilirubin 0.4 mg/dL (0.2-1.3); Total Protein 7.2 g/dL (6.3-8.2)
--- NOTE | 2019-04-04 18:00 | XR ---
EXAMINATION TYPE: XR chest 1V portable DATE OF EXAM: 04/04/2019 COMPARISON: 04/02/2019 HISTORY: Short of breath TECHNIQUE: Single frontal view of the chest is obtained. FINDINGS: Heart and mediastinum are normal. There is minimal subsegmental atelectasis left lung base . There is increased density medial right lower lobe. There are chest leads. There is a left shoulder prosthesis. There is no heart failure. IMPRESSION: Right lower lobe medial infiltrate unchanged. Subsegmental atelectasis left lung base in creased compared to last exam. No heart failure.
[2019-04-04] MEDS ORDERED: ASPIRIN 81 MG PO STA (19:12)
[2019-04-04] MEDS ORDERED: NITROGLYCERIN SL TABS 0.4 MG TAB SUBLINGUAL PRN (19:12)
[2019-04-04] MEDS: IPRATROPIUM-ALBUTEROL 3 ML NEB INHALATION SCH (19:30)
[2019-04-04] MEDS: SODIUM CHLORIDE 0.9% 1,000 ML IV SCH (19:54)
--- NOTE | 2019-04-04 20:04 | CT ---
EXAMINATION TYPE: CT angio chest DATE OF EXAM: 04/04/2019 7:49 PM COMPARISON: 10/29/2018 HISTORY: Abnormal EKG. CT DLP: 373.4 mGycm Automated exposure control for dose reduction was used. CONTRAST: CTA scan of the thorax is performed with IV Contrast, patient injected with 80ml mL of Isovue 370, pu lmonary embolism protocol. There are 3-D post processed images.. FINDINGS: There is diffuse pulmonary emphysema. There is coarse linear infiltrate in the right middle lobe. The re is mild pleural thickening at the lung apices that is worse on the right side. There is no pleural effusion. There is mild pleural thickening at the right lung base. There is no adrenal mass. Heart size is normal. There is no pericardial effusion. There are no hilar masses. Thoracic aorta murray ws no aneurysm or dissection. Ascending aorta measures 3.6 cm. There is normal contrast opacification of the pulmonary arteries. There are no filling defects. There is some spurring in the thoracic spine. The ribs appear intact. IMPRESSION: NO EVIDENCE OF PULMONARY EMBOLISM. PLEURAL AND PULMONARY CHRONIC INFILTRATES AND SCARRING NOT SIGNIFI CANTLY DIFFERENT THAN OLD EXAM. NO INCREASING PULMONARY DENSITY COMPARED TO OLD EXAM. THERE IS SLIGHT IMPROVED AERATION THE LEFT LUNG BASE COMPARED TO OLD EXAM.
[2019-04-04] MEDS ORDERED: ALBUTEROL NEBULIZED 2.5 MG/3 ML INHALATION PRN (21:37)
[2019-04-04] MEDS ORDERED: HYDROcodone/APAP 10-325MG 1 EACH TAB PO PRN (21:37)
[2019-04-04] MEDS ORDERED: ZOLPIDEM 5 MG TAB PO SCH (21:45)
[2019-04-04] MEDS: PANTOPRAZOLE 40 MG TABLET PO SCH (21:56)
[2019-04-04] MEDS: ATORVASTATIN 80 MG TAB PO SCH (21:56)
[2019-04-04] MEDS: TAMSULOSIN 0.4 MG CAP.ER.24H PO SCH (21:56)
[2019-04-04] MEDS: MORPHINE SULFATE 4 MG/ML SYRINGE IVP PRN (21:56)
[2019-04-04] MEDS: METOPROLOL TARTRATE 25 MG TAB PO SCH (21:56)
[2019-04-04] MEDS: PREGABALIN 75 MG CAP PO SCH (21:56)
[2019-04-04] MEDS: methylPREDNISolone SOD SUCCI 125 MG/2 ML VIAL IV SCH (23:31)
[2019-04-05] MEDS: SODIUM CHLORIDE 0.9% 1,000 ML IV SCH ×2 (03:30→13:31)
[2019-04-05] MEDS: MORPHINE SULFATE 4 MG/ML SYRINGE IVP PRN (03:30)
[2019-04-05 05:26] LABS: Cholesterol 143 mg/dL (<200); HDL Cholesterol 49 mg/dL (40-60); LDL Cholesterol,Calculated 85 mg/dL (0-99); Triglycerides 43 mg/dL (<150)
[2019-04-05] MEDS: methylPREDNISolone SOD SUCCI 125 MG/2 ML VIAL IV SCH ×2 (06:06→12:26)
[2019-04-05] MEDS: SYMBICORT 80-4.5 MCG INHALER INHALATION SCH ×2 (07:07→19:36)
[2019-04-05] MEDS: IPRATROPIUM-ALBUTEROL 3 ML NEB INHALATION SCH ×4 (07:07→19:36)
[2019-04-05] MEDS: ISOSORBIDE MONONITRATE ER 30 MG TAB.ER.24H PO SCH (08:23)
[2019-04-05] MEDS: CLOPIDOGREL 75 MG TAB PO SCH (08:24)
[2019-04-05] MEDS: METOPROLOL TARTRATE 25 MG TAB PO SCH ×2 (08:24→20:33)
[2019-04-05] MEDS: PREGABALIN 75 MG CAP PO SCH ×2 (08:24→20:34)
--- NOTE | 2019-04-05 08:31 | CONS ---
CONSULTATION Mr. Thomas is a 68-year-old male who presented with symptoms of dyspnea. The patient has a known history of coronary artery disease, history of chronic obstructive lung disease and a prior history of smoking. He presented to Dr. Franks yesterday with symptoms of progressive dyspnea. His cardiac history is remarkable for the fact that he underwent stenting of his left circumflex in June of 2018 and to the diagonal branch in October of 2018. Subsequently because of persistent symptoms of dyspnea and chest discomfort he underwent repeat cardiac catheterization in February 2019. He was found to have patent stented diagonal branch and to the circumflex, borderline lesion in the LAD with normal fraction flow reserve and chronically occluded right coronary artery. The patient has been complaining of progressive dyspnea, coughing, but no sputum. He denies any symptoms of fever. He has no associated arrhythmia. He has some symptoms of PND. No peripheral edema. He has underwent an echocardiogram on 01 of April that showed a preserved systolic function with mild mitral and tricuspid regurgitation and no evidence of pulmonary hypertension. The patient has chronic dyspnea on exertion and chronic obstructive lung disease. His coronary risk factors are remarkable for prior history of smoking, history of hypertension and hyperlipidemia. MEDICATIONS: His medications include aspirin, Lipitor 80 mg daily, Symbicort, Plavix 75 mg daily, [place], Imdur 60 mg daily, Lopressor 25 mg twice a day, Lyrica, Flomax and Duragesic. REVIEW OF SYSTEMS: RESPIRATORY SYSTEM: He has chronic dyspnea on exertion, chronic cough with chronic obstructive lung disease. GI SYSTEM: No recent GI bleeding. No peptic ulcer disease. SYSTEM: No dysuria or hematuria. NERVOUS SYSTEM: No history of stroke. PHYSICAL EXAMINATION: A 68-year-old male, alert, oriented, in no apparent distress. Blood pressure 147/80 with the heart rate in the 80s. HEAD: Normocephalic. EYES: Sclerae nonicteric. NECK: Good carotid upstroke. No jugular venous distention. LUNGS: With significant decrease in the air exchange bilaterally with scattered wheezes. HEART: Regular rate and rhythm. S1, S2. No S3 with systolic murmur at the base. No diastolic murmur no rub. ABDOMEN: Soft, nontender. Positive bowel sounds. No organomegaly. EXTREMITIES: No edema. Intact distal pulses. LAB DATA: Lab data revealed troponin less than 0.012 for 3 samples. BUN and creatinine 31 and 1.38, which is close to his baseline. Potassium 4.3. Hemoglobin of 10.9, white blood cell of 4.5. Cholesterol 143, LDL of 85. EKG revealed a sinus mechanism, normal axis with evidence consistent with prior inferior myocardial infarction. Compared with old EKG, there are no acute changes. Chest CT angiogram revealed no evidence of pulmonary embolism with no change compared with the old CT. On the chest x-ray, there is a right lower lobe infiltrate that was noted in the past. IMPRESSION: 1. Symptoms of progressive dyspnea with cough, probably related to his chronic obstructive lung disease. Patient has a known history of moderate chronic obstructive lung disease. 2. Chest discomfort, atypical for ischemic heart disease. 3. History of coronary artery disease, stable. No evidence of progression of disease. 4. History of hypertension. 5. Hyperlipidemia. 6. Prior history of smoking. RECOMMENDATION: From the cardiac standpoint, the patient is stable at this time. I see no indication for further cardiac workup. He is on his home regimen. We will continue present therapy. We will see him on as-needed basis. He may benefit for further evaluation with pulmonary service. Thank you for this consult. We will follow with you. MMODL / IJN: [id number] /
[2019-04-05 08:48] LABS: Glucose,Whole Blood 208 mg/dL (75-99)
[2019-04-05] MEDS ORDERED: ASPIRIN 325 MG TAB PO SCH (09:00)
[2019-04-05] MEDS ORDERED: AZITHROMYCIN 500 MG TAB PO SCH (09:00)
[2019-04-05 09:57] LABS: Anisocytosis Slight; Basophils % (A) 1 %; Eosinophils % (A) 1 %; HCT 33.2 % (39.0-53.0); HGB 10.4 gm/dL (13.0-17.5); Hypochromasia Moderate; Lymphocytes # (A) 0.4 k/uL (1.0-4.8); Lymphocytes % (A) 11 %; MCH 25.7 pg (25.0-35.0); MCHC 31.3 g/dL (31.0-37.0); MCV 82.2 fL (80.0-100.0); Mean Platelet Volume 7.3; Monocytes # (A) 0.1 k/uL (0-1.0); Monocytes % (A) 2 %; Neutrophils # (A) 3.1 k/uL (1.3-7.7); Neutrophils % (A) 85 %; Platelet Count 259 k/uL (150-450); RBC 4.04 m/uL (4.30-5.90); RDW 16.1 % (11.5-15.5); WBC 3.6 k/uL (3.8-10.6)
--- NOTE | 2019-04-05 09:57 | P.HPIM ---
History of Present Illness H&P Date: 04/05/19 Chief Complaint: Increased shortness of breath and chest pain This is a 68-year-old male patient who presented to his PCP with complaints of shortness of breath. It was found during primary care visit the patient had abnormal EKG and he was sent to ER for further evaluation. Patient was recently admitted for similar episode in which 2-D echo was completed showing an EF of 55-60%. Patient was evaluated by cardiology services at that time. Patient also recently treated for acute bronchitis and discharged on azithromycin. 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 Chest x-ray completed showing right lower lobe medial infiltrate unchanged. Subsegmental atelectasis left lung base increased compared to old exam no heart failure. EKG completed showing sinus rhythm with marked sinus arrhythmia cannot rule out inferior infarct age undetermined. Chest CTA completed showing no evidence of pulmonary embolism. Pleural and pulmonary chronic infiltrates and scarring not significantly different than on exam. No increasing pulmonary density compared to old exam. There is slight improved aeration of the left lung base compared to old exam. Troponins negative 3. Cardiology and pulmonary services have been consulted. Patient started on Solu-Medrol and DuoNeb breathing treatments. At this time patient is feeling slightly improved from yesterday. Patient denies chest pain. Patient denies nausea vomiting or diarrhea. 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 Last Myocardial Infarction Date:: 06/22/18 History of Any Multi-Drug Resistant Organisms: None Reported Past Surgical History: Adenoidectomy, Back Surgery, Cholecystectomy, Heart Catheterization With Stent, Orthopedic Surgery, Tonsillectomy Additional Past Surgical History / Comment(s): Multiple back surgeries including a pain stimulator in place/hardware, R knee surgery with hardware, L rotator cuff repair x 4/cadaver bone, colonoscopy Past Anesthesia/Blood Transfusion Reactions: No Reported Reaction Date of Last Stent Placement:: 06/22/18 Smoking Status: Former smoker - Past Family History Father Family Medical History: Cancer Additional Family Medical History / Comment(s): Liver cancer. Mother Additional Family Medical History / Comment(s): Brain aneurysm Sister(s) Family Medical History: Cancer Additional Family Medical History / Comment(s): Lung cancer Brother(s) Family Medical History: No Reported History Family Family Medical History: Unable to Obtain Medications and Allergies Home Medications Medication Instructions Recorded Confirmed Type Pregabalin [Lyrica] 150 mg PO BID 06/20/18 04/04/19 History fentaNYL [Duragesic 75MCG/HR] 1 patch TRANSDERM Q72H 06/20/18 04/04/19 History Aspirin 81 mg PO DAILY #30 chew 06/24/18 04/04/19 Rx Atorvastatin [Lipitor] 80 mg PO HS 10/29/18 04/04/19 History Clopidogrel [Plavix] 75 mg PO DAILY 30 Days #30 tab 11/08/18 04/04/19 Rx Tamsulosin [Flomax] 0.4 mg PO PC-SUPPER 30 Days #30 11/08/18 04/04/19 Rx cap.er.24h Albuterol Inhaler [Ventolin Hfa 1 - 2 puff INHALATION RT-Q6H PRN 02/13/19 04/04/19 History Inhaler] Budesonide/Formoterol Fumarate 2 puff INHALATION RT-BID 02/13/19 04/04/19 History [Symbicort 80-4.5 Mcg Inhaler] HYDROcodone/APAP 10-325MG [[place] 1 tab PO BID PRN 02/13/19 04/04/19 History 10-325] Metoprolol Tartrate [Lopressor] 25 mg PO BID 02/13/19 04/04/19 History Nitroglycerin 0.4 mg SL Q5M PRN 02/13/19 04/04/19 History Omeprazole 20 mg PO HS 02/13/19 04/04/19 History Isosorbide Mononitrate ER [Imdur] 60 mg PO DAILY 02/19/19 04/04/19 History Melatonin 10 mg PO HS 03/30/19 04/04/19 History Allergies Allergy/AdvReac Type Severity Reaction Status Date / Time No Known Allergies Allergy Verified 04/04/19 21:18 Physical Exam Vitals: Vital Signs Temp Pulse Pulse Pulse Resp BP BP 04/05/19 08:00 97.7 F 83 81 17 114/77 04/05/19 07:22 80 04/05/19 07:07 80 04/05/19 03:42 97.6 F 83 18 04/04/19 23:07 97.5 F L 76 18 04/04/19 20:00 79 18 107/76 04/04/19 19:40 78 18 129/83 04/04/19 17:16 71 04/04/19 17:04 67 04/04/19 16:34 97.6 F 70 18 98/79 BP Pulse Ox 04/05/19 08:00 94 L 04/05/19 07:22 04/05/19 07:07 04/05/19 03:42 147/83 97 04/04/19 23:07 130/67 96 04/04/19 20:00 96 04/04/19 19:40 99 04/04/19 17:16 04/04/19 17:04 04/04/19 16:34 94 L Intake and Output 04/04/19 04/05/19 04/05/19 22:59 06:59 14:59 Other: # Voids 1 Weight 80.739 kg Head normocephalic Neck supple Lungs diminished bilaterally with expiratory wheezing Heart regular rate and rhythm S1-S2, no rub or gallop Abdomen is soft nontender nondistended positive bowel sounds no hepatosplenomegaly Extremities no edema Neuro alert and orientated to 3 Results CBC & Chem 7: 04/04/19 16:45 04/04/19 16:45 Labs: Abnormal Lab Results - Last 24 Hours (Table) 04/04/19 04/04/19 04/05/19 Range/Units 16:45 16:45 08:46 RBC 4.28 L (4.30-5.90) m/uL Hgb 10.9 L (13.0-17.5) gm/dL Hct 34.2 L (39.0-53.0) % MCV 79.9 L (80.0-100.0) fL RDW 16.0 H (11.5-15.5) % Carbon Dioxide 21 L (22-30) mmol/L BUN 31 H (9-20) mg/dL Creatinine 1.38 H (0.66-1.25) mg/dL POC Glucose (mg/dL) 208 H (75-99) mg/dL Thrombosis Risk Factor Assmnt - Choose All That Apply Each Risk Factor Represents 2 Points: Age 61-74 years Thrombosis Risk Factor Assessment Total Risk Factor Score: 2 Thrombosis Risk Factor Assessment Level: Low Risk Assessment and Plan Assessment: 1. Chest pain or shortness of breath . Troponins negative 3. 2-D echo completed on 04/01/2019 showing an EF of 55-60%. CTA showing no evidence for pulmonary embolism. Cardiology services have been consulted 2. COPD exacerbation. Patient started on Solu-Medrol. Maintain on azithromycin. continue DuoNeb breathing treatments. Pulmonary services consulted 3. Acute kidney injury. Creatinine 1.38 bun 31. Continue normal saline at 100 and continue to monitor 4. History of congestive heart failure 5. History of diastolic congestive heart failure 6. History of seizure disorder. Patient previously by neurology no changes at this time 7. History of essential hypertension 8. History of hyperlipidemia. Patient maintained on Lipitor 9. Degenerative disc disease chronic back pain. Patient to attain on fentanyl patch and pain stimulator 10. Recent upper respiratory infection and bronchitis. Patient was recently discharged on azithromycin DVT prophylaxis heparin. GI prophylaxis Protonix Time with Patient: Greater than 30 (Greater than 60% of the total time spent in counseling and coordination of care. I performed an examination of the patient and discussed their management with the Nurse Practitioner. I have reviewed the Nurse Practitioner's notes and agree with the documented findings and plan of care)
[2019-04-05 10:01] LABS: Albumin 3.8 g/dL (3.5-5.0); Calcium 9.4 mg/dL (8.4-10.2); Potassium 4.7 mmol/L (3.5-5.1); Total Bilirubin 0.3 mg/dL (0.2-1.3); Total Protein 6.6 g/dL (6.3-8.2)
[2019-04-05] MEDS: ASPIRIN 81 MG PO SCH (10:12)
[2019-04-05 11:35] LABS: Glucose,Whole Blood 198 mg/dL (75-99)
--- NOTE | 2019-04-05 12:13 | P.CNPUL ---
History of Present Illness Consult date: 04/05/19 Reason for consult: dyspnea History of present illness: 68-year-old male patient with known history of COPD and coronary artery disease comes in again to the hospital yesterday for reasons that are not clear to me. The patient has flight of ideas. He is giving different formation and a lot of times he is not following up with a good explanation. He is having a pressured speech and he is also singing [email or web address] songs. He states that he was unable to sleep. The exact cause is not clear. He may have an underlying obstructive sleep apnea. He was feeling hot and cold and he got out of bed and went to his car when he slept and spend the whole night. He is having some shortness of breath. He was treated for COPD exacerbation and he was discharged home without any steroids. His echocardiogram showed a preserved LV function with an ejection fraction of 55-60%. Cardiac enzymes were negative. The patient was completing or supposed to complete an outpatient course of antibiotics on outpatient basis. His cardiac enzymes are negative for now. Cardiology saw the patient and there is no indication for any acute cardiac issue for the time being. CT angiogram of the chest was done and it showed no evidence of any pulmonary embolism. There is COPD. There is also some chronic scarring. No increasing pulmonary densities compared to the old exam. There is improvement in aeration of the left lung. He had diffuse emphysema and course chronic interstitial infiltrates in the right midlung area along with pleural thickening in the lung apices. Review of Systems Constitutional: Denies chills, Denies fever Eyes: denies as per HPI, denies blurred vision, denies bulging eye, denies decreased vision, denies diplopia, denies discharge, denies dry eye, denies irritation, denies itching, denies pain, denies photophobia, denies loss of peripheral vision, denies loss of vision, denies tunnel vision/blind spots Ears: deny: decreased hearing, ear discharge, earache, tinnitus Ears, nose, mouth and throat: Denies headache, Denies sore throat Breasts: absent: as per HPI, gynecomastia Cardiovascular: Reports decreased exercise tolerance, Reports dyspnea on exe rtion, Reports shortness of breath Respiratory: Reports dyspnea, Reports wheezing Gastrointestinal: Reports as per HPI Genitourinary: Reports as per HPI Musculoskeletal: Reports as per HPI Musculoskeletal: absent: ankle pain, ankle stiffness, ankle swelling Integumentary: Denies pruritus, Denies rash Neurological: Reports as per HPI Psychiatric: Reports as per HPI, Reports change in sleep habits, Reports irritability Endocrine: Reports as per HPI Hematologic/Lymphatic: Reports as per HPI Allergic/Immunologic: Reports as per HPI Past Medical History Past Medical History: Coronary Artery Disease (CAD), Chest Pain / Angina, COPD, Hyperlipidemia, Myocardial Infarction ([place]), Osteoarthritis (OA), Pneumonia, Prostate Disorder, Seizure Disorder Additional Past Medical History / Comment(s): COPD, coronary artery disease, diverticulosis, seizure disorder, hypertension, hyperlipidemia, chronic back pain and the patient has astimulator. The patient also has degenerative disc disease and chronic back pain. He suffers from BPH, carpal tunnel disease Last Myocardial Infarction Date:: 06/22/18 History of Any Multi-Drug Resistant Organisms: None Reported Past Surgical History: Adenoidectomy, Back Surgery, Cholecystectomy, Heart Catheterization With Stent, Orthopedic Surgery, Tonsillectomy Additional Past Surgical History / Comment(s): Multiple back surgeries including a pain stimulator in place/hardware, R knee surgery with hardware, L rotator cuff repair x 4/cadaver bone, colonoscopy Past Anesthesia/Blood Transfusion Reactions: No Reported Reaction Date of Last Stent Placement:: 06/22/18 Smoking Status: Former smoker - Past Family History Father Family Medical History: Cancer Additional Family Medical History / Comment(s): Liver cancer. Mother Additional Family Medical History / Comment(s): Brain aneurysm Sister(s) Family Medical History: Cancer Additional Family Medical History / Comment(s): Lung cancer Brother(s) Family Medical History: No Reported History Family Family Medical History: Unable to Obtain Medications and Allergies Home Medications Medication Instructions Recorded Confirmed Type Pregabalin [Lyrica] 150 mg PO BID 06/20/18 04/04/19 History fentaNYL [Duragesic 75MCG/HR] 1 patch TRANSDERM Q72H 06/20/18 04/04/19 History Aspirin 81 mg PO DAILY #30 chew 06/24/18 04/04/19 Rx Atorvastatin [Lipitor] 80 mg PO HS 10/29/18 04/04/19 History Clopidogrel [Plavix] 75 mg PO DAILY 30 Days #30 tab 11/08/18 04/04/19 Rx Tamsulosin [Flomax] 0.4 mg PO PC-SUPPER 30 Days #30 11/08/18 04/04/19 Rx cap.er.24h Albuterol Inhaler [Ventolin Hfa 1 - 2 puff INHALATION RT-Q6H PRN 02/13/19 04/04/19 History Inhaler] Budesonide/Formoterol Fumarate 2 puff INHALATION RT-BID 02/13/19 04/04/19 History [Symbicort 80-4.5 Mcg Inhaler] HYDROcodone/APAP 10-325MG [[place] 1 tab PO BID PRN 02/13/19 04/04/19 History 10-325] Metoprolol Tartrate [Lopressor] 25 mg PO BID 02/13/19 04/04/19 History Nitroglycerin 0.4 mg SL Q5M PRN 02/13/19 04/04/19 History Omeprazole 20 mg PO HS 02/13/19 04/04/19 History Isosorbide Mononitrate ER [Imdur] 60 mg PO DAILY 02/19/19 04/04/19 History Melatonin 10 mg PO HS 03/30/19 04/04/19 History Allergies Allergy/AdvReac Type Severity Reaction Status Date / Time No Known Allergies Allergy Verified 04/04/19 21:18 Physical Exam Vitals: Vital Signs Temp Pulse Pulse Pulse Resp BP BP 04/05/19 11:56 97.7 F 80 18 126/76 04/05/19 11:40 80 04/05/19 11:28 80 04/05/19 08:00 97.7 F 83 81 17 114/77 04/05/19 07:22 80 04/05/19 07:07 80 04/05/19 03:42 97.6 F 83 18 04/04/19 23:07 97.5 F L 76 18 04/04/19 20:00 79 18 107/76 04/04/19 19:40 78 18 129/83 04/04/19 17:16 71 04/04/19 17:04 67 04/04/19 16:34 97.6 F 70 18 98/79 BP Pulse Ox 04/05/19 11:56 99 04/05/19 11:40 04/05/19 11:28 04/05/19 08:00 94 L 04/05/19 07:22 04/05/19 07:07 04/05/19 03:42 147/83 97 04/04/19 23:07 130/67 96 04/04/19 20:00 96 04/04/19 19:40 99 04/04/19 17:16 04/04/19 17:04 04/04/19 16:34 94 L Intake and Output 04/04/19 04/05/19 04/05/19 22:59 06:59 14:59 Other: # Voids 1 Weight 80.739 kg The patient appeared well nourished and normally developed. Vital signs as documented. Head exam is unremarkable. No scleral icterus or corneal arcus noted. Neck is without jugular venous distension, thyromegaly, or carotid bruits. Carotid upstrokes are brisk bilaterally. Lungs are diminished and there is some few scattered expiratory wheezes upon forceful extremity maneuvers. She'll crackles in the lung bases. Otherwise within normal limits. Breath sounds equal and symmetrical. Cardiac exam reveals the PMI to be normally sized and situated. Rhythm is regular. First and second heart sounds normal. No murmurs, rubs or gallops. Abdominal exam reveals normal bowel sounds, no masses, no organomegaly and no aortic enlargement. Extremities are nonedematous and both femoral and pedal pulses are normal.Examination of the skin revealed no evidence of significant rashes, suspicious appearing nevi or other concerning lesions. Neurologically the patient is awake and alert and there is no focal neurological deficits. Results - Laboratory Findings CBC and BMP: 04/05/19 04:58 04/05/19 04:58 PT/INR, D-dimer PT 10.1 sec (9.0-12.0) 04/04/19 16:45 INR 0.9 (<1.2) 04/04/19 16:45 Abnormal lab findings: Abnormal Labs 04/04/19 04/04/19 04/05/19 16:45 16:45 04:58 WBC 3.6 L RBC 4.28 L 4.04 L Hgb 10.9 L 10.4 L Hct 34.2 L 33.2 L MCV 79.9 L RDW 16.0 H 16.1 H Lymphocytes # 0.4 L Sodium Carbon Dioxide 21 L BUN 31 H Creatinine 1.38 H Glucose POC Glucose (mg/dL) ALT 04/05/19 04/05/1904/05/19 04:58 08:46 11:33 WBC RBC Hgb Hct MCV RDW Lymphocytes # Sodium 136 L Carbon Dioxide 21 L BUN 34 H Creatinine 1.28 H Glucose 224 H POC Glucose (mg/dL) 208 H 198 H ALT 18 L - Diagnostic Findings Chest x-ray: image reviewed CT scan - chest: image reviewed Assessment and Plan Assessment: 1 COPD with diffuse of his edema and chronic dyspnea. CAT scan of the chest was reviewed and the findings are essentially chronic. Ultrasound pulmonary embolism. No evidence of any pneumonia. Some chronic scarring in the apices and the right midlung area. Cardiac status is also stable. 2 coronary artery disease 3 diverticulosis 4 recent hospitalization for dehydration from which the patient has recovered. 5 hypertension 6 hyperlipidemia 7 chronic back pain and the patient has a pain stimulator in place. The patient degenerative disc disease 8 chronic kidney disease Plan Discontinue the IV Solu-Medrol. There is a component of steroid-induced psychosis or hypomania in this patient. No active signs of COPD exacerbation or cardiac decompensation. Continue the same bronchodilators. Continue to follow.
[2019-04-05] MEDS ORDERED: INSULIN ASPART (NovoLOG) 100 UNIT/ML VIAL SQ SCH (12:30)
[2019-04-05] MEDS ORDERED: ALPRAZolam 0.25 MG TAB PO PRN (13:25)
[2019-04-05] MEDS: TAMSULOSIN 0.4 MG CAP.ER.24H PO SCH (16:24)
[2019-04-05] MEDS: ATORVASTATIN 80 MG TAB PO SCH (20:34)
[2019-04-05] MEDS: HEPARIN SODIUM,PORCINE 5,000 UNIT/ML 1 ML VIAL SQ SCH (20:34)
[2019-04-05] MEDS: PANTOPRAZOLE 40 MG TABLET PO SCH (20:34)
[2019-04-05] MEDS ORDERED: ZOLPIDEM 10 MG TAB PO SCH (21:00)
[2019-04-06] MEDS: SODIUM CHLORIDE 0.9% 1,000 ML IV SCH (03:32)
[2019-04-06 07:05] LABS: Anisocytosis Slight; Basophils # (A) 0.1 k/uL (0-0.2); Basophils % (A) 1 %; Eosinophils % (A) 0 %; HCT 31.7 % (39.0-53.0); HGB 10.1 gm/dL (13.0-17.5); Hypochromasia Moderate; Lymphocytes # (A) 1.1 k/uL (1.0-4.8); Lymphocytes % (A) 14 %; MCH 26.2 pg (25.0-35.0); MCHC 31.7 g/dL (31.0-37.0); MCV 82.7 fL (80.0-100.0); Mean Platelet Volume 7.4; Monocytes # (A) 0.4 k/uL (0-1.0); Monocytes % (A) 5 %; Neutrophils % (A) 78 %; Platelet Count 246 k/uL (150-450); RBC 3.84 m/uL (4.30-5.90); RDW 16.3 % (11.5-15.5); WBC 7.7 k/uL (3.8-10.6)
[2019-04-06 07:17] LABS: Albumin 3.6 g/dL (3.5-5.0); Calcium 9.4 mg/dL (8.4-10.2); Potassium 4.3 mmol/L (3.5-5.1); Total Bilirubin 0.4 mg/dL (0.2-1.3); Total Protein 6.2 g/dL (6.3-8.2)
[2019-04-06] MEDS: SYMBICORT 80-4.5 MCG INHALER INHALATION SCH (07:37)
[2019-04-06] MEDS: IPRATROPIUM-ALBUTEROL 3 ML NEB INHALATION SCH ×2 (07:37→11:25)
[2019-04-06 08:02] VITALS: RESP 16
[2019-04-06] MEDS: ISOSORBIDE MONONITRATE ER 30 MG TAB.ER.24H PO SCH (08:46)
[2019-04-06] MEDS: HEPARIN SODIUM,PORCINE 5,000 UNIT/ML 1 ML VIAL SQ SCH (08:46)
[2019-04-06] MEDS: CLOPIDOGREL 75 MG TAB PO SCH (08:46)
[2019-04-06] MEDS: PREGABALIN 75 MG CAP PO SCH (08:46)
[2019-04-06] MEDS: METOPROLOL TARTRATE 25 MG TAB PO SCH (08:46)
[2019-04-06] MEDS: ASPIRIN 81 MG PO SCH (08:47)
[2019-04-06 12:12] VITALS: BP 124/81; PULSE 65; TEMP 97.8
--- NOTE | 2019-04-06 13:05 | P.DS ---
Providers Date of admission: 04/05/19 14:16 Expected date of discharge: 04/06/19 Attending physician: Ilene Franks Consults: 04/04/19 19:19 Consult Physician Routine Consulting Provider: Sixto Bolivar Consult Reason/Comments: cp Do you want consulting provider notified?: Yes 04/05/19 09:45 Consult Physician Routine Consulting Provider: Chloe Lau Consult Reason/Comments: COPD exacerbation Do you want consulting provider notified?: Yes Primary care physician: Ielne [facility] Course: Diagnoses on discharge: 1. Chest pain or shortness of breath . Troponins negative 3. 2-D echo completed on 04/01/2019 showing an EF of 55-60%. CTA showing no evidence for pulmonary embolism. Cardiology services have been consulted 2. COPD exacerbation. Patient started on Solu-Medrol. Maintain on azithromycin. continue DuoNeb breathing treatments. Pulmonary services consulted 3. Acute kidney injury. Creatinine 1.38 bun 31. Continue normal saline at 100 and continue to monitor 4. History of congestive heart failure 5. History of diastolic congestive heart failure 6. History of seizure disorder. Patient previously by neurology no changes at this time 7. History of essential hypertension 8. History of hyperlipidemia. Patient maintained on Lipitor 9. Degenerative disc disease chronic back pain. Patient to attain on fentanyl patch and pain stimulator 10. Recent upper respiratory infection and bronchitis. Patient was recently discharged on azithromycin Hospital course: This is a 68-year-old male patient who presented to his PCP with complaints of shortness of breath. It was found during primary care visit the patient had abnormal EKG and he was sent to ER for further evaluation. Patient was recently admitted for similar episode in which 2-D echo was completed showing an EF of 55-60%. Patient was evaluated by cardiology services at that time. Patient also recently treated for acute bronchitis and discharged on azithromycin. 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 Chest x-ray completed showing right lower lobe medial infiltrate unchanged. Subsegmental atelectasis left lung base increased compared to old exam no heart failure. EKG completed showing sinus rhythm with marked sinus arrhythmia cannot rule out inferior infarct age undetermined. Chest CTA completed showing no evidence of pulmonary embolism. Pleural and pulmonary chronic infiltrates and scarring not significantly different than on exam. No increasing pulmonary density compared to old exam. There is slight improved aeration of the left lung base compared to old exam. Troponins negative 3. Cardiology and pulmonary services have been consulted. Patient started on Solu-Medrol and DuoNeb breathing treatments. At this time patient is feeling slightly improved from yesterday. Patient denies chest pain. Patient denies nausea vomiting or diarrhea. Patient denies any urinary burning or frequency On 04/06/2019 patient was seen and examined in the observation unit he is alert and oriented 3 in no apparent distress he denies any chest pain or shortness of breath he has been ambulating without difficulty pulmonary evaluation and cardiology evaluation reviewed in details and discussed with patients no new recommendation at this time for further testing or change in management, patient is stable to be discharged home, he will be continued on the same medications as prior to admission, he will be followed in our office was in 1 week for further evaluation and treatment Patient Condition at Discharge: Good Plan - Discharge Summary Discharge Rx Participant: Yes New Discharge Prescriptions: Continue fentaNYL [Duragesic 75MCG/HR] 1 patch TRANSDERM Q72H Pregabalin [Lyrica] 150 mg PO BID Aspirin 81 mg PO DAILY #30 chew Atorvastatin [Lipitor] 80 mg PO HS Tamsulosin [Flomax] 0.4 mg PO PC-SUPPER 30 Days #30 cap.er.24h Clopidogrel [Plavix] 75 mg PO DAILY 30 Days #30 tab Budesonide/Formoterol Fumarate [Symbicort 80-4.5 Mcg Inhaler] 2 puff INHALATION RT-BID Albuterol Inhaler [Ventolin Hfa Inhaler] 1 - 2 puff INHALATION RT-Q6H PRN PRN Reason: Shortness Of Breath HYDROcodone/APAP 10-325MG [[place] 10-325] 1 tab PO BID PRN PRN Reason: Pain Omeprazole 20 mg PO HS Metoprolol Tartrate [Lopressor] 25 mg PO BID Nitroglycerin 0.4 mg SL Q5M PRN PRN Reason: Chest Pain Isosorbide Mononitrate ER [Imdur] 60 mg PO DAILY Melatonin 10 mg PO HS Discharge Medication List Pregabalin [Lyrica] 150 mg PO BID 06/20/18 [History] fentaNYL [Duragesic 75MCG/HR] 1 patch TRANSDERM Q72H 06/20/18 [History] Aspirin 81 mg PO DAILY #30 chew 06/24/18 [Rx] Atorvastatin [Lipitor] 80 mg PO HS 10/29/18 [History] Clopidogrel [Plavix] 75 mg PO DAILY 30 Days #30 tab 11/08/18 [Rx] Tamsulosin [Flomax] 0.4 mg PO PC-SUPPER 30 Days #30 cap.er.24h 11/08/18 [Rx] Albuterol Inhaler [Ventolin Hfa Inhaler] 1 - 2 puff INHALATION RT-Q6H PRN 02/13/19 [History] Budesonide/Formoterol Fumarate [Symbicort 80-4.5 Mcg Inhaler] 2 puff INHALATION RT-BID 02/13/19 [History] HYDROcodone/APAP 10-325MG [[place] 10-325] 1 tab PO BID PRN 02/13/19 [History] Metoprolol Tartrate [Lopressor] 25 mg PO BID 02/13/19 [History] Nitroglycerin 0.4 mg SL Q5M PRN 02/13/19 [History] Omeprazole 20 mg PO HS 02/13/19 [History] Isosorbide Mononitrate ER [Imdur] 60 mg PO DAILY 02/19/19 [History] Melatonin 10 mg PO HS 03/30/19 [History] Follow up Appointment(s)/Referral(s): Ilene Franks MD [Primary Care Provider] - 1-2 days
== END 2019-04-06 13:29 | disposition home or self-care (01) | DRG 191 ==
LOC: EC 16:15 → 1SOBS 19:12 → OBSVTOIN 04-05 14:16 → 1SOBS 04-06 01:49
PROVIDERS: ADMIT Internal Medicine; ATTEND Internal Medicine
DX: J43.9 Emphysema, unspecified (principal); I50.32 Chronic diastolic (congestive) heart failure; J98.11 Atelectasis; N17.9 Acute kidney failure, unspecified; I13.0 Hypertensive heart and chronic kidney disease with heart failure and stage 1 through stage 4 chronic kidney disease, or unspecified chronic kidney disease; I08.1 Rheumatic disorders of both mitral and tricuspid valves; N18.9 Chronic kidney disease, unspecified; K57.90 Diverticulosis of intestine, part unspecified, without perforation or abscess without bleeding; I25.10 Atherosclerotic heart disease of native coronary artery without angina pectoris; E78.5 Hyperlipidemia, unspecified; G56.03 Carpal tunnel syndrome, bilateral upper limbs; N40.0 Benign prostatic hyperplasia without lower urinary tract symptoms; M81.0 Age-related osteoporosis without current pathological fracture; M54.9 Dorsalgia, unspecified; M19.90 Unspecified osteoarthritis, unspecified site; R91.8 Other nonspecific abnormal finding of lung field; G89.29 Other chronic pain; I25.2 Old myocardial infarction; Z79.82 Long term (current) use of aspirin; Z79.51 Long term (current) use of inhaled steroids; Z79.02 Long term (current) use of antithrombotics/antiplatelets; Z79.891 Long term (current) use of opiate analgesic; Z79.899 Other long term (current) drug therapy; Z87.01 Personal history of pneumonia (recurrent); Z90.49 Acquired absence of other specified parts of digestive tract; Z86.69 Personal history of other diseases of the nervous system and sense organs; Z95.5 Presence of coronary angioplasty implant and graft; Z98.890 Other specified postprocedural states; Z96.89 Presence of other specified functional implants; Z87.891 Personal history of nicotine dependence; Z80.0 Family history of malignant neoplasm of digestive organs; Z80.1 Family history of malignant neoplasm of trachea, bronchus and lung; Z82.49 Family history of ischemic heart disease and other diseases of the circulatory system
CPT/HCPCS: 36415; 71045; 71275; 80053; 80061; 83735; 83880; 84484; 85025; 85610; 85730; 93005; 94640; 96374; 99285

== ENCOUNTER → 2019-06-25 | Outpatient (CLI) | payer MEDICARE ==
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
== END | disposition home or self-care (01) ==
LOC: SLEEP 16:28
PROVIDERS: ATTEND Internal Medicine Critical Care Medicine
DX: G47.33 Obstructive sleep apnea (adult) (pediatric) (principal); I25.10 Atherosclerotic heart disease of native coronary artery without angina pectoris; J44.9 Chronic obstructive pulmonary disease, unspecified; E78.5 Hyperlipidemia, unspecified; M54.9 Dorsalgia, unspecified; I12.9 Hypertensive chronic kidney disease with stage 1 through stage 4 chronic kidney disease, or unspecified chronic kidney disease; N18.9 Chronic kidney disease, unspecified; N40.0 Benign prostatic hyperplasia without lower urinary tract symptoms; G89.29 Other chronic pain; Z87.891 Personal history of nicotine dependence; Z79.82 Long term (current) use of aspirin; Z79.899 Other long term (current) drug therapy
CPT/HCPCS: 99211

== ENCOUNTER 2019-12-14 18:08 | Emergency (ER) | payer OTHER, MEDICARE ==
[2019-12-14] MEDS ORDERED: SODIUM CHLORIDE 0.9% 1,000 ML IV STA (18:15)
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
[2019-12-14] MEDS ORDERED: MORPHINE SULFATE 4 MG/ML SYRINGE IVP STA (18:20)
[2019-12-14 18:24] VITALS: TEMP 98
[2019-12-14 18:27] LABS: Glucose,Whole Blood 104 mg/dL (75-99)
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
--- NOTE | 2019-12-14 18:37 | XR ---
EXAMINATION TYPE: XR pelvis AP view DATE OF EXAM: 12/14/2019 COMPARISON: 06/19/2018 HISTORY: Pain TECHNIQUE: 2 views FINDINGS: The pelvic ring is intact. Proximal femurs and hip joints are intact. There is minor acetab ular spurring. There is multilevel lumbar laminectomy and posterior fusion surgery. Sacroiliac joints appear intact. IMPRESSION: No acute abnormality of the pelvis. No fracture seen.
[2019-12-14 18:45] LABS: Anisocytosis Slight; Basophils % (A) 1 %; Eosinophils # (A) 0.2 k/uL (0-0.7); Eosinophils % (A) 3 %; HCT 37.3 % (39.0-53.0); HGB 12.1 gm/dL (13.0-17.5); Hypochromasia Slight; Lymphocytes # (A) 1.6 k/uL (1.0-4.8); Lymphocytes % (A) 31 %; MCH 29.6 pg (25.0-35.0); MCHC 32.5 g/dL (31.0-37.0); Monocytes # (A) 0.4 k/uL (0-1.0); Monocytes % (A) 7 %; Neutrophils # (A) 2.9 k/uL (1.3-7.7); Neutrophils % (A) 55 %; Platelet Count 229 k/uL (150-450); RDW 16.2 % (11.5-15.5); WBC 5.2 k/uL (3.8-10.6)
[2019-12-14 18:54] LABS: INR 0.9 (<1.2); Partial Thromboplastin Time 23.3 sec (22.0-30.0); Prothrombin Time 9.7 sec (9.0-12.0)
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
[2019-12-14 19:04] LABS: ALT 21 U/L (4-49); AST 28 U/L (17-59); African American GFR (CKD) 64 (>60 ml/min/1.73 sqM); Albumin 4.1 g/dL (3.5-5.0); Alcohol <10 mg/dL; Alkaline Phosphatase 98 U/L (38-126); Amylase 62 U/L (30-110); Anion Gap 9 mmol/L; Blood Urea Nitrogen 15 mg/dL (9-20); Calcium 9.2 mg/dL (8.4-10.2); Carbon Dioxide 23 mmol/L (22-30); Chloride 106 mmol/L (98-107); Creatine Kinase 85 U/L (55-170); Glucose 86 mg/dL (74-99); Non-African American GFR(CKD) 55 (>60 ml/min/1.73 sqM); Potassium 4.5 mmol/L (3.5-5.1); Sodium 138 mmol/L (137-145); Total Bilirubin 0.3 mg/dL (0.2-1.3); Total Protein 6.8 g/dL (6.3-8.2)
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
[2019-12-14 19:15] LABS: Creatine Kinase MB 1.4 ng/mL (0.0-2.4); Troponin I <0.012 ng/mL (0.000-0.034)
[2019-12-14 19:37] VITALS: BP 95/80; PULSE 66; RESP 18
--- NOTE | 2019-12-14 20:09 | XR ---
EXAMINATION TYPE: XR foot complete LT DATE OF EXAM: 12/14/2019 COMPARISON: NONE HISTORY: Foot pain TECHNIQUE: 3 views FINDINGS: Metatarsals appear intact. I see no fracture nor dislocation. Joint spaces are fairly clyde l. There are no erosions. IMPRESSION: Negative left foot exam.
--- NOTE | 2019-12-14 20:22 | XR ---
EXAMINATION TYPE: XR ankle complete LT DATE OF EXAM: 12/14/2019 COMPARISON: NONE HISTORY: Pain. TECHNIQUE: 3 views FINDINGS: Ankle mortise is anatomic. I see no fracture nor dislocation. Joint spaces are normal. IMPRESSION: Negative left ankle exam. No fracture.
--- NOTE | 2019-12-14 20:23 | XR ---
EXAMINATION TYPE: XR elbow complete LT DATE OF EXAM: 12/14/2019 COMPARISON: NONE HISTORY: Pain TECHNIQUE: 3 views FINDINGS: I see no fracture nor dislocation. Elbow joint spaces are fairly normal. There is no sign o f joint effusion. IMPRESSION: Negative left elbow exam.
== END 2019-12-14 21:00 | disposition home or self-care (01) ==
LOC: EC 18:08
DX: M25.572 Pain in left ankle and joints of left foot (principal); M25.522 Pain in left elbow; I25.119 Atherosclerotic heart disease of native coronary artery with unspecified angina pectoris; J44.9 Chronic obstructive pulmonary disease, unspecified; E78.5 Hyperlipidemia, unspecified; I25.2 Old myocardial infarction; M19.90 Unspecified osteoarthritis, unspecified site; I10 Essential (primary) hypertension; G89.29 Other chronic pain; M54.9 Dorsalgia, unspecified; N40.0 Benign prostatic hyperplasia without lower urinary tract symptoms; G40.909 Epilepsy, unspecified, not intractable, without status epilepticus; Z79.51 Long term (current) use of inhaled steroids; Z79.899 Other long term (current) drug therapy; Z95.5 Presence of coronary angioplasty implant and graft; Z98.890 Other specified postprocedural states; Z87.891 Personal history of nicotine dependence; Z96.82 Presence of neurostimulator; V23.4XXA Motorcycle driver injured in collision with car, pick-up truck or van in traffic accident, initial encounter; Y93.55 Activity, bike riding; Y92.410 Unspecified street and highway as the place of occurrence of the external cause
CPT/HCPCS: 36415; 93005; 86900; 86901; 80053; 82150; 82550; 82553; 83690; 84484; 85025; 85610; 85730; 86850; 80320; 72170; 73080; 73610; 73630; 71045; 72125; 70450; 71260; 74177; 99285; 96374; 96361; J2270; Q9967

== ENCOUNTER → 2020-05-01 | Outpatient (CLI) | payer MEDICARE ==
[2020-05-01 13:46] LABS: Albumin 4.1 g/dL (3.5-5.0); Calcium 9.5 mg/dL (8.4-10.2); Potassium 4.6 mmol/L (3.5-5.1); Total Bilirubin 0.5 mg/dL (0.2-1.3)
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
--- NOTE | 2020-05-01 15:59 | CT ---
EXAMINATION TYPE: CT lumbar spine wo/w con DATE OF EXAM: 05/01/2020 COMPARISON: Prior CT 01/08/2013 HISTORY: Back pain, prior surgeries (X12) [address] DLP: 2988 mGycm Automated exposure control for dose reduction was used. CONTRAST: CT scan of the lumbar is performed without and with IV Contrast, patient injected with 80 mL of Isovu e [address] An enhanced and unenhanced CT of the lumbar spine was performed. Bone and soft tissue window setting s are submitted as well as coronal and sagittal reconstructions. FINDINGS: Infrarenal abdominal aorta measures 3 cm. Exam shows similar findings. There is anterolisthesis grade 1 T12-L1 which has progressed in the inte rval. Relative kyphosis is centered at this level. There is multilevel spondylosis. Vacuum phenomenon is present at T12-L1, L1-2, L2-3. Posterior fusion changes again noted at L3-S1. Laminectomies are p resent at L3, L4, and L5. T12-L1 shows facet arthropathy, hypertrophic changes causes posterior lateral mass effect on the thec al sac and results and a trefoil appearance of the thecal sac, some moderate stenosis is present whic h is contributed by the listhesis. Listhesis also contributes to encroach on the foramina. L1-L2: Posterior extension endplate disc complex causes anterior mass effect on the thecal sac. There is mild spinal stenosis. Circumferential extension endplate disc complex causes foraminal encroachme nt. L2-L3: Posterior extension endplate disc complex causes mild anterior mass effect on the thecal sac. Circumferential extension endplate disc complex results in foraminal encroachment. Only mild spinal s tenosis. There is some facet arthropathy change. L3-L4: Loss of disc height is present. Mild foraminal encroachment due to lateral extension of endpla carlos towards the right, no evident disc herniation, there is some loss of disc height or spinal stenos is. There is facet arthropathy change. L4-L5: Circumferential extension endplate disc complex encroaches somewhat on the foramina greater on the left than on the right, no significant spinal stenosis or evident disc herniation. There is face t arthropathy change. L5-S1: Posterior extension of endplate disc complex may contact the proximal S1 nerve roots, no signi ficant spinal stenosis, circumferential extension of endplates encroaches somewhat on the foramen on the left greater than right. There is facet arthropathy change. There is no abnormal enhancement following contrast administration. IMPRESSION: Degenerative disc disease, foraminal encroachment, postop changes. There has been some progression in the listhesis at T12-L1 as described.
== END | disposition home or self-care (01) ==
LOC: RADCTMAIN 12:49
PROVIDERS: ATTEND Psychiatry & Neurology Neurology
DX: M51.36 Other intervertebral disc degeneration, lumbar region (principal); M50.321 Other cervical disc degeneration at C4-C5 level; M47.892 Other spondylosis, cervical region; Z98.890 Other specified postprocedural states; E78.2 Mixed hyperlipidemia
CPT/HCPCS: 80061; 80053; 72125; 72133; 36415; Q9967

== ENCOUNTER → 2020-10-22 | Outpatient (CLI) | payer MEDICARE ==
[2020-10-22 12:26] LABS: African American GFR (CKD) 49.5 (60.0-200.0); Albumin 4.4 g/dL (3.80-4.90); Albumin/Globulin Ratio 1.91 (1.60-3.17); Anion Gap 8.8 mmol/L (4.00-12.00); BUN/Creat Ratio 12.5 Ratio (12.00-20.00); Calcium 9.7 mg/dL (8.7-10.3); Carbon Dioxide 27.2 mmol/L (21.6-31.8); Chol/HDL Ratio 4.46; Globulin 2.3 g/dL (1.6-3.3); LDL Cholesterol,Calculated 105.8 mg/dL (0.0-131.0); Non-African American GFR(CKD) 42.7 (60.0-200.0); Potassium 4.8 mmol/L (3.5-5.5); Total Bilirubin 0.3 mg/dL (0.2-1.2); Total Protein 6.7 g/dL (6.2-8.2); VLDL Calculation 29.2 mg/dL (5.00-40.00)
== END | disposition home or self-care (01) ==
LOC: LABWHC1 07:05
PROVIDERS: ATTEND Internal Medicine Interventional Cardiology
DX: E78.2 Mixed hyperlipidemia (principal)
CPT/HCPCS: 36415; 80053; 80061

== ENCOUNTER → 2020-11-18 | Outpatient (CLI) | payer MEDICARE ==
--- NOTE | 2020-11-19 07:15 | XR ---
EXAMINATION TYPE: XR ribs LT DATE OF EXAM: 11/18/2020 CLINICAL HISTORY: Pain, Fall Four views of the ribs fail demonstrate evidence for displaced rib fracture or secondary sign of rib fracture. Visualized lungs are free of infiltrate. No evidence for pneumothorax. IMPRESSION: No displaced rib fractures seen. ICD 10 NO FRACTURE, INITIAL EVALUATION
== END | disposition home or self-care (01) ==
LOC: LABWHC1 15:24
PROVIDERS: ATTEND Internal Medicine
DX: S29.9XXA Unspecified injury of thorax, initial encounter (principal); R07.81 Pleurodynia; W19.XXXA Unspecified fall, initial encounter

== ENCOUNTER → 2021-09-28 | Outpatient (CLI) | payer MEDICARE, OTHER ==
[2021-09-28 10:39] LABS: ALT 27 U/L (10-49); AST 22 U/L (14-35); African American GFR (CKD) 55.4 (60.0-200.0); Albumin 4.2 g/dL (3.8-4.9); Albumin/Globulin Ratio 1.84 (1.60-3.17); Alkaline Phosphatase 121 U/L (41-126); BUN/Creat Ratio 10.14 Ratio (12.00-20.00); Blood Urea Nitrogen 14.7 mg/dL (9.0-27.0); Calcium 9.6 mg/dL (8.7-10.3); Carbon Dioxide 24.2 mmol/L (20.0-27.5); Chloride 104 mmol/L (96-109); Chol/HDL Ratio 2.59 Ratio; Globulin 2.3 g/dL (1.6-3.3); Glucose 113 mg/dL (70-110); LDL Cholesterol,Calculated 39.1 mg/dL (0.0-131.0); Non-African American GFR(CKD) 47.8 (60.0-200.0); Potassium 4.3 mmol/L (3.5-5.5); Sodium 140 mmol/L (135-145); Total Protein 6.4 g/dL (6.2-8.2)
== END | disposition home or self-care (01) ==
LOC: LABWHC1 08:15
PROVIDERS: ATTEND Internal Medicine Interventional Cardiology
DX: E78.2 Mixed hyperlipidemia (principal)
CPT/HCPCS: 36415; 80053; 80061

== ENCOUNTER → 2021-10-18 | Outpatient (CLI) | payer MEDICARE ==
--- NOTE | 2021-10-18 11:34 | XR ---
EXAMINATION TYPE: XR chest 2V DATE OF EXAM: 10/18/2021 COMPARISON: 09/29/20 HISTORY: Shortness of breath TECHNIQUE: Frontal and lateral views of the chest are obtained. FINDINGS: Scattered senescent parenchymal changes noted. Hyperinflation compatible with COPD. No evidence for infiltrate. No evidence for atelectasis. Heart size is stable. Mediastinal structures are stable and grossly unremarkable. No evidence for hilar prominence. Degenerative changes dorsal spine. IMPRESSION: 1. No evidence for acute pulmonary disease.
== END | disposition home or self-care (01) ==
LOC: RADXRMAIN 11:08
PROVIDERS: ATTEND Internal Medicine
DX: R06.02 Shortness of breath (principal)
CPT/HCPCS: 71046

== ENCOUNTER 2021-10-22 07:56 | Day surgery (SDC) | payer MEDICARE, OTHER ==
[2021-10-20 14:23] VITALS: BMI 32.4
--- NOTE | 2021-10-21 13:28 | HP ---
HISTORY AND PHYSICAL CHIEF COMPLAINT: Left knee pain. HISTORY OF PRESENT ILLNESS: The patient is a 71-year-old retired gentleman who presents with a several-month history of progressive left knee pain. He notes swelling and stiffness along with giving way and locking. He is also having night symptoms. He has been using a cane because of his knee. He has been taking medications in addition and tried a previous injection, with only partial temporary relief. PAST MEDICAL HISTORY: Significant for heart disease, hypothyroidism, hypertension, hyperlipidemia and reflux disease. PAST SURGICAL HISTORY: Significant for right knee surgery, left shoulder surgery, multiple lumbar surgeries along with cardiac stent placements. CURRENT MEDICATIONS: Aspirin, atorvastatin, cyclobenzaprine, hydrocodone, isosorbide nitrate, levothyroxine, metoprolol, omeprazole, gabapentin, Ventolin. ALLERGIES: HE DENIES DRUG ALLERGIES. FAMILY HISTORY: Negative. SOCIAL HISTORY: Significant for current tobacco use. REVIEW OF SYSTEMS: Sixteen-point review of systems otherwise is reviewed and is noncontributory. PHYSICAL EXAMINATION: On examination, the patient is approximately 5 feet 6 inches, 198 pounds of endomorphic habitus. HEENT exam is nonfocal. Neck is supple. He has painless passive motion of his left hip. Straight-leg raise is negative. Active motion of left knee: Minus 18 to 120 degrees of flexion. He has a large effusion. There is no warmth or erythema. He is tender about the medial joint line. Collaterals are stable, Kathy is negative. Indu's elicits medial pain. He does have an antalgic gait pattern. His distal neurovascular exam appears intact in the left lower extremity. IMPRESSION: 1. Left knee chondrocalcinosis/synovitis. 2. Left knee internal derangement, possible medial meniscal tear. RECOMMENDATIONS: I talked to the patient at length regarding his condition along with treatment options. At this point he is having pain and mechanical symptoms despite conservative measures that limit him. He is unable to have an MRI because of previous spine stimulator placement. After thorough discussion, he opts to proceed with surgery. We will plan to proceed to arthroscopic evaluation with possible partial medial meniscectomy in addition to possible synovectomy. We will likely perform a perform that as an outpatient procedure. Risks and benefits were discussed at length in layman's terms. MMODL / IJN: [id number] /
[~2021-10-22 07:56] MED LIST: DEXAMETHASONE SOD PHOSPHATE 4 MG/ML 1 ML VIAL IV ONE; HYDROmorphone 0.5 MG/0.5 ML SYRINGE IVP PRN; LACTATED RINGERS 1,000 ML IV SCH; MIDAZOLAM 2 MG/2 ML VIAL IV PRN; ONDANSETRON 4 MG/2 ML VIAL IVP ONE
[2021-10-22] MEDS ORDERED: LIDOCAINE 1% (10MG/ML) FOR IV START INTRADERMA ONE (09:00)
[2021-10-22 09:02] LABS: Glucose,Whole Blood 109 mg/dL (75-99)
[2021-10-22] MEDS ORDERED: EPINEPHrine (PF) 1 ML in SODIUM CHLORIDE 0.9% IRRIGATIO 3,000 ML IRRIGATION ONE ×4 (09:52)
[2021-10-22] MEDS ORDERED: LIDOCAINE 1% INJ 10MG/ML (20 ML MDV) ONE (09:52)
[2021-10-22] MEDS ORDERED: MIDAZOLAM 2 MG/2 ML VIAL ONE (09:52)
[2021-10-22] MEDS ORDERED: fentaNYL (PF) 50 MCG/ML 2 ML AMP ONE (09:52)
[2021-10-22] MEDS ORDERED: SUCCINYLCHOLINE CHLORIDE 100 MG/5 ML SYR IV ONE (09:52)
[2021-10-22] MEDS ORDERED: PROPOFOL 10 MG/ML 20 ML VIAL IV ONE (09:52)
--- NOTE | 2021-10-22 10:29 | P.OP ---
Date of Procedure: 10/22/21 Preoperative Diagnosis: Left knee internal derangement Postoperative Diagnosis: Left knee posterior medial meniscal tear/posterior lateral meniscal tear/marked synovitis/chondrocalcinosis Procedure(s) Performed: Left knee arthroscopic partial medial meniscectomy/partial lateral meniscectomy/synovectomy of the medial, lateral, and patellofemoral compartments Anesthesia: MYRANDA Surgeon: Jeremy Stallworth Estimated Blood Loss (ml): 10 Pathology: none sent Condition: stable Disposition: PACU Indications for Procedure: The patient's a 71-year-old male presents with progressive left knee pain despite conservative measures. A discussion of the risks and benefits of operative intervention versus continued conservative measures was made with patient. He opted to proceed with surgery. Operative risks to include infection, neurovascular injury, development of blood clots, possible incomplete resolution of symptoms, possible worsening symptoms and need for subsequent procedures was discussed. Informed consent was obtained. Operative Findings: As below Description of Procedure: The patient was brought to the operating room, and after induction of general anesthesia examined the left knee. Collaterals were stable, Kathy was negative, and posterior drawer was negative. The left lower extremity was prepped and draped in a normal fashion. A superior lateral portal was made through a 3 mm skin incision superior and lateral to the patella. This was used for outflow. A lateral portal was made through a 5 mm vertical skin incision lateral to the patella tendon above the joint line. Diagnostic arthroscopy was performed. On inspection of the medial compartment, a complex tear involving the posterior horn of the medial meniscus in the white-red junction was noted. This was debrided back to stable base with straight baskets and a motorized shaver. A grade 2/3 chondral defect involving the central posterior portion medial femoral condyle was noted. This measured 9 x 10 mm. Marked synovitis involving the anterior medial compartment was debrided with motorized shaver. On inspection of the notch, the anterior cruciate ligament appeared to be intact. On inspection of the lateral compartment, and oblique tear involving the posterior horn of the lateral meniscus was noted. This was debrided back to stable base with a motorized shaver. The remaining lateral meniscus was stable and intact. Marked synovitis on the anterior lateral compartment was debrided with a motorized shaver. On inspection of the patellofemoral articulation, there was marked synovitis debrided with a motorized shaver. Grade 2 chondral changes were noted diffusely. There were no loose chondral fragments.. The gutters were clear debris. The knee was then thoroughly irrigated. The portals were closed with Steri-Strips. A sterile dressing was applied in addition to a compression stocking. The patient was awoken from general anesthesia and transferred to recovery room in good condition. Blood loss was estimated at 10 mL. No complications were incurred.
[2021-10-22 10:42] VITALS: TEMP 98
[2021-10-22] MEDS ORDERED: KETOROLAC 15 MG/ML 1 ML VIAL IVP ONE (10:49)
[2021-10-22 11:22] VITALS: RESP 18
[2021-10-22] MEDS ORDERED: HYDROcodone/APAP 10-325MG 1 EACH TAB ONE (11:24)
[2021-10-22] MEDS ORDERED: HYDROcodone/APAP 10-325MG 1 EACH TAB PO ONE (11:24)
[2021-10-22 11:33] VITALS: BP 123/73; PULSE 59
== END 2021-10-22 11:57 | disposition home or self-care (01) ==
LOC: OR 07:56
PROVIDERS: ATTEND Orthopaedic Surgery
DX: S83.242A Other tear of medial meniscus, current injury, left knee, initial encounter (principal); S83.282A Other tear of lateral meniscus, current injury, left knee, initial encounter; M11.262 Other chondrocalcinosis, left knee; E03.9 Hypothyroidism, unspecified; E78.5 Hyperlipidemia, unspecified; I10 Essential (primary) hypertension; Z72.0 Tobacco use
CPT/HCPCS: 29880; J2250; J1100; J0690; J2405; J0171; J2001; J3010; J1885; J0330; J2704; J1170

== ENCOUNTER → 2022-01-18 | Outpatient (CLI) | payer MEDICARE, OTHER ==
[2022-01-18 18:47] LABS: African American GFR (CKD) 63.2 (60.0-200.0); Anion Gap 10.7 mmol/L (10.00-18.00); BUN/Creat Ratio 13.38 Ratio (12.00-20.00); Blood Urea Nitrogen 17.4 mg/dL (9.0-27.0); Calcium 9.2 mg/dL (8.7-10.3); Carbon Dioxide 23.3 mmol/L (20.0-27.5); Non-African American GFR(CKD) 54.5 (60.0-200.0); Potassium 4.3 mmol/L (3.5-5.5)
[2022-01-18 18:54] LABS: Basophils % (A) 0.4 %; Eosinophils % (A) 4.1 %; HCT 40.5 % (39.6-50.0); Lymphocytes # (A) 1.54 X 10*3/uL (0.90-5.00); Lymphocytes % (A) 22.6 %; MCH 31.9 pg (27.0-32.0); MCHC 32.1 g/dL (32.0-37.0); MCV 99.3 fL (80.0-97.0); Mean Platelet Volume 9.9 fL (9.5-12.2); Monocytes % (A) 6.9 %; Neutrophils # (A) 4.45 X 10*3/uL (1.80-7.70); Neutrophils % (A) 65.6 %; Platelet Count 293 X 10*3/uL (140-440); RBC 4.08 X 10*6/uL (4.40-5.60); RDW 13.6 % (11.5-14.5)
[2022-01-18 18:55] LABS: Basophils # (A) 0.03 X 10*3/uL (0.00-0.10); Eosinophils # (A) 0.28 X 10*3/uL (0.04-0.35); Immature Grans, Automated 0.4 %; Monocytes # (A) 0.47 X 10*3/uL (0.20-1.00); NRBC Per 100 WBC 0 /100 WBCS (0.0-0.0)
[2022-01-18 19:05] LABS: INR 0.93 (0.90-1.11); Prothrombin Time 10.3 sec (9.9-11.9)
== END | disposition home or self-care (01) ==
LOC: LABPAT 11:54
PROVIDERS: ATTEND Orthopaedic Surgery
DX: Z01.812 Encounter for preprocedural laboratory examination (principal); M17.12 Unilateral primary osteoarthritis, left knee; Z22.322 Carrier or suspected carrier of Methicillin resistant Staphylococcus aureus
CPT/HCPCS: 80048; 85025; 85610; 87070; 93005

== ENCOUNTER 2022-02-01 09:46 | Inpatient (IN) | payer MEDICARE, OTHER ==
--- NOTE | 2022-01-31 13:38 | HP ---
HISTORY AND PHYSICAL CHIEF COMPLAINT: Left knee pain. HISTORY OF PRESENT ILLNESS: The patient is a 71-year-old retired gentleman who presents with progressive left knee pain for the past several years, worsening recently. He is having stiffness along with diffuse pain with any weightbearing activities. He notes it does buckle on him. He is having night symptoms. He has been taking [place] as needed. PAST MEDICAL HISTORY: Significant for gastroesophageal reflux disease, hyperlipidemia, hypertension, hypothyroidism, pseudogout along with coronary artery disease with history of myocardial infarction. PAST SURGICAL HISTORY: Significant for previous right knee surgery, left knee arthroscopy, left shoulder surgery, multiple lumbar surgeries. CURRENT MEDICATIONS: Aspirin, atorvastatin, hydrocodone, levothyroxine, nitroglycerin, omeprazole, gabapentin, and Ventolin. ALLERGIES: He denies drug allergies. FAMILY HISTORY: Noncontributory. SOCIAL HISTORY: Significant for current tobacco use. REVIEW OF SYSTEMS: 16-point review of systems otherwise reviewed and is noncontributory. PHYSICAL EXAMINATION: On examination, the patient is approximately 5 foot 6, 198 pounds of endomorphic habitus. HEENT exam is nonfocal. Neck is supple. He has painless passive motion of left hip. Straight-leg raise is negative. Active motion left knee -16 to 100 degrees of flexion. He has a large effusion. He is tender about the medial joint line. Collaterals are stable. Kathy is negative. Indu's is equivocal. He has genu varum alignment. He has an antalgic gait pattern. His distal neurovascular exam appears intact in the left lower extremity. Weightbearing notch, lateral and Merchant views left knee obtained in the office show severe medial compartment narrowing along with chondrocalcinosis. IMPRESSION: 1. Left knee severe medial compartment osteoarthrosis. 2. Left knee pseudogout. 3. History of myocardial infarction. RECOMMENDATIONS: I talked to the patient at length regarding his condition along with treatment options. At this point, he is quite symptomatic and limited because of pain related to his osteoarthrosis despite conservative measures. After thorough discussion, he opts to proceed with surgery. We will plan to proceed with left total knee arthroplasty. We will institute DVT prophylaxis postoperatively. Risks and benefits were discussed at length in layman's terms. MMODL / IJN: [id number] /
[~2022-02-01 09:46] MED LIST changes: +ACETAMINOPHEN TAB 500 MG TAB PO PRN; -HYDROmorphone 0.5 MG/0.5 ML SYRINGE IVP PRN; -LACTATED RINGERS 1,000 ML IV SCH; +LIDOCAINE 1% (10MG/ML) FOR IV START INTRADERMA PRN; +MELOXICAM 7.5 MG TAB PO PRN; -MIDAZOLAM 2 MG/2 ML VIAL IV PRN; -ONDANSETRON 4 MG/2 ML VIAL IVP ONE; +ONDANSETRON 4 MG/2 ML VIAL IVP PRN; +TRANEXAMIC ACID IN NACL,ISO-OS 1,000 MG in SALINE 1 100ML.BAG IVPB PRN
[2022-02-01] MEDS ORDERED: ACETAMINOPHEN TAB 500 MG TAB PO ONE (10:45)
[2022-02-01] MEDS ORDERED: LACTATED RINGERS 1,000 ML IV ONE (10:45)
[2022-02-01] MEDS ORDERED: DEXAMETHASONE SOD PHOSPHATE 4 MG/ML 1 ML VIAL IVP ONE (10:45)
[2022-02-01] MEDS ORDERED: ONDANSETRON 4 MG/2 ML VIAL IVP ONE (10:45)
[2022-02-01] MEDS ORDERED: MELOXICAM 7.5 MG TAB PO ONE (10:46)
[2022-02-01] MEDS ORDERED: MIDAZOLAM 2 MG/2 ML VIAL IVP ONE (10:56)
--- NOTE | 2022-02-01 11:34 | P.ANPRN ---
Procedure Note - Anesthesia - Nerve Block Performed Left Adductor Canal Infusion Time Out Performed: Yes Date of Procedure: 02/01/22 Procedure Start Time: 10:56 Procedure Stop Time: 11:04 Location of Patient: PreOp Indication: Acute Post-Operative Pain, Requested by Surgeon Sedation Type: Sedate with meaningful contact maintained Preparation: Sterile Prep, Sterile Dressing Position: Supine Catheter: Indwelling Needle Types: On-Q Needle Gauge: 18 Ultrasound used to visualize needle placement: Yes Ultrasound used to observe medication spread: Yes Injectate: 0.5% Ropivacaine (see comment for volume) (15 ml + decadron 5 mg) Blood Aspirated: No Pain Paresthesia on Injection Noted: No Resistance on Injection: Normal Image Stored and Saved: Yes Events: Uneventful and Well Tolerated Left iPack Single Time Out Performed: Yes Date of Procedure: 02/01/22 Procedure Start Time: 11:05 Location of Patient: PreOp Indication: Acute Post-Operative Pain, Requested by Surgeon Sedation Type: Sedate with meaningful contact maintained Preparation: Sterile Prep, Sterile Dressing Position: Right Lateral Catheter: None Needle Types: Pajunk Needle Gauge: 20 Ultrasound used to visualize needle placement: Yes Ultrasound used to observe medication spread: Yes Injectate: 0.5% Ropivacaine (see comment for volume) (15 ml + decadron 5 mg) Blood Aspirated: No Pain Paresthesia on Injection Noted: No Resistance on Injection: Normal Image Stored and Saved: Yes Events: Uneventful and Well Tolerated
[2022-02-01] MEDS ORDERED: ceFAZolin 1,000 MG in SODIUM CHLORIDE 0.9% 1,000 ML IRRIGATION ONE (13:24)
[2022-02-01] MEDS ORDERED: HYDROmorphone 0.5 MG/0.5 ML SYRINGE IVP PRN (14:33)
[2022-02-01] MEDS ORDERED: NALOXONE 0.4 MG/ML 1 ML VIAL IV PRN (14:33)
[2022-02-01] MEDS ORDERED: HYDROcodone/APAP 5-325MG 1 EACH TAB PO PRN (14:33)
--- NOTE | 2022-02-01 14:51 | P.OP ---
Date of Procedure: 02/01/22 Preoperative Diagnosis: Left knee severe tricompartmental osteoarthrosis/pseudogout Postoperative Diagnosis: Same Procedure(s) Performed: Left total knee arthroplastycementedposterior stabilized Implants: Depuy Attune size 6 cemented femoral component, size 5 cemented tibial component, 9 mm articular surface, 35 mm cemented patellar component. This is a posterior stabilized implant. Anesthesia: regional, spinal Surgeon: Jeremy Stallworth Steep Tender #1: James Murillo Assistant #2: Baldev Soriano Estimated Blood Loss (ml): 50 Pathology: other (Bone fragments) Condition: stable Disposition: PACU Indications for Procedure: The patient's a 71-year-old male presents with progressive left knee pain secondary to tricompartmental surgery versus despite conservative measures. A discussion of the risks and benefits of operative intervention versus continued conservative measures was made with patient. He opted to proceed with surgery. Operative risks to include infection, neurovascular injury, development of blood clots, possible component loosening/failure and possible need for subsequent procedures was discussed. Informed consent was obtained. Operative Findings: As below Description of Procedure: The patient was brought to the operating room, and after induction of spinal anesthesia the left lower extremity was prepped and draped in a normal fashion. The tourniquet was inflated to 270 mm marker. A longitudinal incision extending 3 finger breaths above the superior pole of patella extending to the medial aspect the tibial tubercle was then made. The skin and subcutaneous tissues were divided sharply. Electrocautery was used for hemostasis. A medial parapatellar arthrotomy was performed. The medial soft tissues to include the superficial and deep portions of the medial collateral ligament were elevated subperiosteally. The patella was everted. A portion of the retropatellar fat pad was excised sharply. The anterior cruciate ligament was sacrificed. Blunt retractors were placed. A starting hole was made in the distal femur 1 cm anterior to the posterior cruciate ligament origin. An intramedullary femoral guide was then inserted planning on 5 valgus distal cut with 9 mm distal resection. The cutting block was pinned in place. The distal cut was then made. The posterior referencing sizing guide was utilized. I felt size 6 was most appropriate. 3 of external rotation was built into the system and verified off the trans-epicondylar axis and the posterior condyles. The cutting block was pinned in place. The anterior, posterior, and chamfer cuts then made. Bone fragments were removed. The intercondylar guide was placed and the notch cut was made with a sagittal saw. The bone block was removed in one fragment. The trial component was then placed. There is good anterior to posterior and medial to lateral fit. The distal peg holes were drilled. The trial component was removed. Attention was then paid towards preparing the proximal tibia. An extra medullary guide was utilized in line with the tibial shaft and second metatarsal distally. I planned on 2 mm resection from the medial compartment. The cutting block was pinned in place. The proximal tibial cut was then made. The bone was removed in one fragment. The remnants of the medial and lateral menisci were excised at the capsular junction with electrocautery. The tibia sized most appropriately at size 5. The trial femoral and tibial components were placed along with a 9 mm articular surface. I was able to obtain full flexion and extension with internal and external rotation. After several flexion and extension cycles, the tibial rotation was marked with electrocautery line with the medial one third of the tibial tubercle. Attention was then paid towards preparing the patella. A patella reamer was utilized taking stem to 14 mm of bone stock. A good flush cut was made. The patella sized most appropr iately 35 mm. The peg holes were drilled. The trial components placed. I had good patellofemoral tracking with no hands technique. The trial components were then removed. The tibia was prepared in the appropriate rotation with appropriate drill and keel punch. The posterior osteophytes were removed with a curved osteotome. The flexion and extension gaps were checked and felt to be symmetric at 9 mm. A trial components were then removed. The bony surfaces were prepared with pulsatile lavage and dried. The tibial component was then cemented place was fully seated. Excess cement was removed. The femoral component cemented place and was fully seated. Excess cement was removed. The trial 9 mm articular surface was placed and the knee was put in full extension. The patella component was cemented place. After the cement had sufficiently hardened, the knee was again taken through a range of motion. Again I was able to obtain full flexion and extension with varus and valgus stress. The trial 9 mm articular surface was removed and the final one inserted. This was fully seated. Care was taken to avoid any soft tissue interposition. Pulsatile lavage was again utilized. The medial parapatellar arthrotomy was closed with #2 Ethibond suture. The tourniquet was deflated with approximately 60 minutes total tourniquet time. Final hemostasis was obtained with the cautery. There was minimal bleeding therefore a deep drain was not placed. The subcutaneous tissues were reapproximated with interrupted 2-0 Vicryl sutures. The skin was reapproximated with 3-0 subcuticular strata fix suture. Skin tape and adhesive was applied. A sterile dressing was applied. The patient was awoken from sedation and transferred to recovery room in good condition. Blood loss was e stimated at 50 mL. No complications were incurred. Sponge and needle counts were correct at the end of the case. Av BISHOP and Baldev BISHOP assisted during the major components of this case to include exposure, bone resection, implantation, and closure.
[2022-02-01] MEDS ORDERED: ROPIVACAINE 0.2%-NS ON-Q PUMP 1,090 MG, EMPTY PAIN BALL 1 EACH MISCELLANE PRN (15:02)
--- NOTE | 2022-02-01 15:15 | XR ---
EXAMINATION TYPE: XR knee limited LT DATE OF EXAM: 02/01/2022 COMPARISON: NONE TECHNIQUE: Two views submitted HISTORY: Post op FINDINGS: There is a prosthetic knee in near anatomic alignment. There is soft tissue edema and emphysema. IMPRESSION: 1. Postoperative change. Appears in near-anatomic alignment
[2022-02-01] MEDS: LACTATED RINGERS 1,000 ML IV SCH (15:59)
[2022-02-01] MEDS: HYDROmorphone 0.5 MG/0.5 ML SYRINGE IVP PRN ×3 (17:06→17:36)
[2022-02-01] MEDS ORDERED: diphenhydrAMINE 50 MG/ML 1 ML VIAL IVP ONE (17:51)
[2022-02-01] MEDS: HYDROcodone/APAP 10-325MG 1 EACH TAB PO PRN ×2 (18:19→23:27)
[2022-02-01] MEDS: SENNOSIDES-DOCUSATE SODIUM 1 EACH TAB PO SCH (20:31)
[2022-02-02] MEDS: HYDROcodone/APAP 10-325MG 1 EACH TAB PO PRN ×4 (04:23→20:19)
--- NOTE | 2022-02-02 07:47 | P.PN ---
Progress Note - Text Progress Note Date: 02/02/22 Patient doing well. Some pain even w/ breakthrough [place]. OnQ site c/d. Patient expressed concern regarding catheter removal. Extensive instructions given. POD#1 s/p L TKA w/ adductor canal catheter - doing well
[2022-02-02] MEDS ORDERED: ALBUTEROL NEBULIZED 2.5 MG/3 ML INHALATION PRN (08:08)
[2022-02-02] MEDS ORDERED: ALBUTEROL HFA INHALER INHALATION PRN (08:08)
[2022-02-02] MEDS ORDERED: NITROGLYCERIN SL TABS 0.4 MG TAB SUBLINGUAL PRN (08:08)
[2022-02-02] MEDS ORDERED: HYDROcodone/APAP 10-325MG 1 EACH TAB PO PRN (08:08)
[2022-02-02] MEDS: TAMSULOSIN 0.4 MG CAP.ER.24H PO SCH ×2 (08:45→20:21)
[2022-02-02] MEDS: METOPROLOL TARTRATE 25 MG TAB PO SCH ×2 (08:45→20:21)
[2022-02-02] MEDS: RIVAROXABAN 10 MG TAB PO SCH (08:45)
[2022-02-02] MEDS: EZETIMIBE 10 MG TAB PO SCH (08:45)
[2022-02-02] MEDS: ISOSORBIDE MONONITRATE ER 60 MG TAB.ER.24H PO SCH (08:45)
[2022-02-02] MEDS: LORATADINE 10 MG TAB PO SCH (08:45)
[2022-02-02] MEDS: ASPIRIN 81 MG PO SCH (08:45)
[2022-02-02] MEDS: PREGABALIN 75 MG CAP PO SCH ×2 (08:45→20:19)
[2022-02-02] MEDS ORDERED: NAPROXEN 250 MG TAB PO SCH (09:00)
[2022-02-02 09:30] LABS: Basophils # (A) 0.01 X 10*3/uL (0.00-0.10); Basophils % (A) 0.1 %; Eosinophils # (A) 0 X 10*3/uL (0.04-0.35); Eosinophils % (A) 0 %; HCT 35.5 % (39.6-50.0); HGB 11.3 g/dL (13.0-17.0); Immature Grans, Automated 0.2 %; Lymphocytes # (A) 0.67 X 10*3/uL (0.90-5.00); Lymphocytes % (A) 7.6 %; MCH 31.5 pg (27.0-32.0); MCHC 31.8 g/dL (32.0-37.0); MCV 98.9 fL (80.0-97.0); Mean Platelet Volume 10.2 fL (9.5-12.2); Monocytes # (A) 0.67 X 10*3/uL (0.20-1.00); Monocytes % (A) 7.6 %; NRBC Per 100 WBC 0 /100 WBCS (0.0-0.0); Neutrophils # (A) 7.44 X 10*3/uL (1.80-7.70); Neutrophils % (A) 84.5 %; Platelet Count 255 X 10*3/uL (140-440); RBC 3.59 X 10*6/uL (4.40-5.60); RDW 13.1 % (11.5-14.5); WBC 8.81 X 10*3/uL (4.50-10.00)
[2022-02-02] MEDS: LEVOTHYROXINE 50 MCG TAB PO SCH (10:30)
[2022-02-02] MEDS: COLCHICINE 0.6 MG EACH PO SCH (10:31)
[2022-02-02] MEDS: CYCLOBENZAPRINE 5 MG TAB PO SCH ×3 (10:31→20:20)
--- NOTE | 2022-02-02 13:34 | P.PN ---
Subjective Progress Note Date: 02/02/22 Principal diagnosis: Left knee osteoarthritis Patient was seen at bedside this morning in a moderate amount of pain. Patient says he has been several times since surgery yesterday walking around his room. Patient says most of the pain he has is at the front of his knee. Patient says he has been attempting to perform exercises on his LLE. Patient did work with physical therapy this morning. Patient was not able to perform steps with physical therapy today. Patient denies chest pain, fever, shortness breath, nausea, vomiting, change in vision, loss of bowel/bladder control. Objective - Vital Signs Vital signs: Vital Signs Temp 97.8 F 02/02/22 07:39 Pulse 92 02/02/22 07:39 Resp 18 02/02/22 07:39 BP 122/69 02/02/22 07:39 Pulse Ox 95 02/02/22 07:39 FiO2 Intake & Output 02/01/22 02/02/22 02/02/22 18:59 06:59 18:59 Intake Total 1451 Output Total 50 Balance 1401 Weight 84.3 kg Intake: IV 1451 Output: Urine 0 Estimated Blood Loss 50 Other: Voiding Method Toilet # Voids 2 - Exam Left knee: Incision is clean, dry, and intact. The exofin fusion tape is in good condition. There is minimal soft tissue swelling and ecchymosis surrounding the medial and lateral aspects of the incision. Calf is soft, no tenderness with palpation. Plantar flexion, dorsiflexion, EHL, FHL are intact. Sensory exam to light touch throughout the extremity is intact, dorsal pedis pulses 2+. - Labs CBC & Chem 7: 02/02/22 06:09 Labs: Abnormal Lab Results - Last 24 Hours (Table) 02/02/22 Range/Units 06:09 RBC 3.59 L (4.40-5.60) X 10*6/uL Hgb 11.3 L (13.0-17.0) g/dL Hct 35.5 L (39.6-50.0) % MCV 98.9 H (80.0-97.0) fL MCHC 31.8 L (32.0-37.0) g/dL Lymphocytes # 0.67 L (0.90-5.00) X 10*3/uL Eosinophils # 0 L (0.04-0.35) X 10*3/uL Assessment and Plan Assessment: 1. Left knee osteoarthritis Postoperative day #1 status post left total knee arthroplasty Plan: 1. Left knee osteoarthritis - left total knee arthroplasty performed yesterday, 02/01/2022. Patient stable at bedside this morning. Patient is unable to do steps with physical therapy today. We will reassess patient in the morning with possible discharge home tomorrow. 2. Appreciate medical management 3. Pain management - [place]; Lyrica; Flexeril 4. DVT prophylaxis - Xarelto 5. GI prophylaxis - Protonix; senna 6. PT/OT - WBAT w/walker 7. Encourage incentive spirometer use 8. Discharge planning - plan home with health services tomorrow Time with Patient: Less than 30
[2022-02-02] MEDS: hydrOXYzine pamoate 25 MG CAP PO PRN ×2 (14:49→20:21)
[2022-02-02] MEDS: LACTATED RINGERS 1,000 ML IV SCH (15:23)
--- NOTE | 2022-02-02 17:52 | P.CONS ---
History of Present Illness - Reason for Consult Consult date: 02/02/22 - History of Present Illness Matthieu Thomas, he is a 71-year-old male well-known to my practice was admitted to [facility] by Dr. Stallworth, and underwent left total knee arthroplasty on 02/01/2022 consultation was requested for medical management while hospitalized. Patient has a known history of hypertension, hyperlipidemia, degenerative osteoarthritis, degenerative disc disease, history of diastolic congestive heart failure, history of chronic obstructive pulmonary disease, and history of seizure disorder. On review of systems patient was seen and examined on 02/02/2022 he is alert and oriented 3 in no apparent distress there is no fever or chills no headache or dizziness no chest pain no shortness of breath no cough no nausea or vomiting no abdominal pain no diarrhea no blood in the stools no burning with urination no frequency or urgency and no hematuria. There is no weakness or numbness in any of the extremities there is no change in vision speech or gait. Past Medical History Past Medical History: Coronary Artery Disease (CAD), Chest Pain / Angina, COPD, Hyperlipidemia, Myocardial Infarction (RI), Osteoarthritis (OA), Pneumonia, Prostate Disorder, Seizure Disorder Additional Past Medical History / Comment(s): COPD. SOB ALWAYS. Coronary artery disease. Diverticulosis. Seizure disorder(NONE IN MANY YEARS)> hypertension, hyperlipidemia, chronic back pain and the patient has astimulator. The patient also has degenerative disc disease and chronic back pain. He suffers from BPH, carpal tunnel disease Last Myocardial Infarction Date:: 06/22/18 History of Any Multi-Drug Resistant Organisms: None Reported Past Surgical History: Adenoidectomy, Back Surgery, Cholecystectomy, Heart Catheterization With Stent, Orthopedic Surgery, Tonsillectomy Additional Past Surgical History / Comment(s): Multiple back surgeries including a pain stimulator in place/hardware, R knee surgery with hardware, L rotator cuff repair x 4/cadaver bone, colonoscopy Past Anesthesia/Blood Transfusion Reactions: No Reported Reaction Date of Last Stent Placement:: 06/22/18 Past Psychological History: No Psychological Hx Reported Additional Psychological History / Comment(s): Pt resides alone in an apartment. He uses a cane prn. He drives. Smoking Status: Current every day smoker Past Alcohol Use History: None Reported Additional Past Alcohol Use History / Comment(s): TRYING TO QUIT.Pt started smoking in 1958 and quit November of 2018. Past Drug Use History: None Reported - Past Family History Father Family Medical History: Cancer Additional Family Medical History / Comment(s): Liver cancer. Mother Additional Family Medical History / Comment(s): Brain aneurysm Sister(s) Family Medical History: Cancer Additional Family Medical History / Comment(s): Lung cancer Brother(s) Family Medical History: No Reported History Family Family Medical History: Unable to Obtain Medications and Allergies Home Medications Medication Instructions Recorded Confirmed Type Pregabalin [Lyrica] 150 mg PO BID 06/20/18 02/01/22 History Aspirin 81 mg PO DAILY #30 chew 06/24/18 02/01/22 Rx Atorvastatin [Lipitor] 80 mg PO HS 10/29/18 02/01/22 History HYDROcodone/APAP 10-325MG [[place] 1 tab PO Q6H PRN 02/13/19 02/01/22 History 10-325] Metoprolol Tartrate [Lopressor] 25 mg PO BID 02/13/19 02/01/22 History Nitroglycerin 0.4 mg SL Q5M PRN 02/13/19 02/01/22 History Omeprazole 20 mg PO HS 02/13/19 02/01/22 History Isosorbide Mononitrate ER [Imdur] 60 mg PO QAM 02/19/19 02/01/22 History Albuterol Nebulized (Conc) 2.5 mg INHALATION Q6H PRN 10/20/21 02/01/22 History [Ventolin Nebulized (Conc)] Albuterol Sulfate [Ventolin HFA] 1 - 2 puff INHALATION Q6H PRN 10/20/21 02/01/22 History Cetirizine HCl [Zyrtec] 10 mg PO DAILY 10/20/21 02/01/22 History Cyclobenzaprine HCl 7.5 mg PO TID BETWEEN MEALS 10/20/21 02/01/22 History Ezetimibe [Zetia] 10 mg PO DAILY 10/20/21 02/01/22 History Levothyroxine Sodium [Synthroid] 50 mcg PO QAM 10/20/21 02/01/22 History Lidocaine 4% Cream [Lmx 4] 1 applic TOPICAL BID 10/20/21 02/01/22 History Naproxen [Naprosyn] 500 mg PO Q12HR 10/20/21 02/01/22 History Tamsulosin [Flomax] 0.4 mg PO BID 10/20/21 02/01/22 History Colchicine [Mitigare] 0.6 mg PO DAILY 01/31/22 02/01/22 History Allergies Allergy/AdvReac Type Severity Reaction Status Date / Time No Known Allergies Allergy Verified 02/01/22 10:48 Physical Exam Vitals: Vital Signs Temp Pulse Resp BP Pulse Ox 02/02/22 07:39 97.8 F 92 18 122/69 95 02/02/22 07:29 92 L 02/02/22 01:33 98.5 F 87 18 136/66 92 L 02/01/22 20:00 18 02/01/22 19:38 97.4 F L 84 16 138/79 94 L 02/01/22 18:20 98.5 F 63 19 145/83 94 L 02/01/22 18:19 98.5 F 63 19 145/83 93 L 02/01/22 17:32 65 16 126/75 95 02/01/22 17:02 66 16 129/71 95 02/01/22 16:47 65 16 117/71 94 L 02/01/22 16:26 65 16 126/82 93 L 02/01/22 16:01 60 16 109/71 94 L 02/01/22 15:46 79 16 100/64 94 L 02/01/22 15:31 72 16 105/58 94 L 02/01/22 15:20 59 L 16 109/59 95 02/01/22 15:04 52 L 16 99/54 95 02/01/22 14:49 52 L 16 117/60 95 02/01/22 11:25 67 16 108/63 95 02/01/22 10:13 97 F L 69 16 130/77 92 L Intake and Output 02/01/22 02/02/22 02/02/22 22:59 06:59 14:59 Intake Total 700 Output Total 0 Balance 700 Intake: IV 700 Output: Urine 0 Other: Voiding Method Toilet # Voids 2 Weight 84.3 kg In general patient is alert and oriented x 3 in no distress HEENT head normocephalic and atraumatic Neck is supple no JVD no goiter no lymphadenopathy no carotid bruit Chest examination is clear to auscultation no crackles no wheezing Cardiac exam reveals regular heart sounds S1 and S2 no gallops no murmurs Abdomen is soft nontender no organomegaly with normal bowel sounds Extremity exam reveals no edema no cyanosis or clubbing Neurological examination reveals no gross focal deficits Results CBC & Chem 7: 02/02/22 06:09 Assessment and Plan Plan: Osteoarthritis, status post left total knee arthroplasty yesterday Underlying history of hypertension Underlying history of diastolic congestive heart failure Underlying history of chronic obstructive pulmonary disease Underlying history of hyperlipidemia Underlying history of seizure disorder Underlying history of degenerative disc disease maintained on pain management and back stimulator At this time home medications reviewed and reordered DVT prophylaxis and pain management as per orthopedic protocol Will check labs closely and follow during this admission
[2022-02-02] MEDS: SENNOSIDES-DOCUSATE SODIUM 1 EACH TAB PO SCH (20:20)
[2022-02-02] MEDS: ATORVASTATIN 80 MG TAB PO SCH (20:21)
[2022-02-02] MEDS: PANTOPRAZOLE 40 MG TABLET PO SCH (20:21)
[2022-02-03 04:20] LABS: Basophils % (A) 0 %; Eosinophils % (A) 1 %; HCT 35.3 % (39.0-53.0); HGB 11.5 gm/dL (13.0-17.5); Lymphocytes # (A) 1.5 k/uL (1.0-4.8); Lymphocytes % (A) 24 %; MCH 32.3 pg (25.0-35.0); MCHC 32.4 g/dL (31.0-37.0); MCV 99.7 fL (80.0-100.0); Mean Platelet Volume 8.7; Monocytes # (A) 0.5 k/uL (0-1.0); Monocytes % (A) 7 %; Neutrophils # (A) 4.1 k/uL (1.3-7.7); Neutrophils % (A) 66 %; Platelet Count 230 k/uL (150-450); RBC 3.54 m/uL (4.30-5.90); RDW 13.6 % (11.5-15.5); WBC 6.3 k/uL (3.8-10.6)
[2022-02-03] MEDS: LACTATED RINGERS 1,000 ML IV SCH (06:26)
[2022-02-03] MEDS: LEVOTHYROXINE 50 MCG TAB PO SCH (06:30)
[2022-02-03] MEDS: HYDROcodone/APAP 10-325MG 1 EACH TAB PO PRN ×3 (07:45→18:04)
[2022-02-03] MEDS: LORATADINE 10 MG TAB PO SCH (10:25)
[2022-02-03] MEDS: RIVAROXABAN 10 MG TAB PO SCH (10:25)
[2022-02-03] MEDS: ASPIRIN 81 MG PO SCH (10:25)
[2022-02-03] MEDS: EZETIMIBE 10 MG TAB PO SCH (10:25)
[2022-02-03] MEDS: METOPROLOL TARTRATE 25 MG TAB PO SCH ×3 (10:26→21:30)
[2022-02-03] MEDS: TAMSULOSIN 0.4 MG CAP.ER.24H PO SCH ×2 (10:26→21:29)
[2022-02-03] MEDS: PREGABALIN 75 MG CAP PO SCH ×2 (10:26→21:29)
[2022-02-03] MEDS: ISOSORBIDE MONONITRATE ER 60 MG TAB.ER.24H PO SCH (10:26)
[2022-02-03] MEDS: COLCHICINE 0.6 MG EACH PO SCH (10:27)
[2022-02-03] MEDS: CYCLOBENZAPRINE 5 MG TAB PO SCH ×3 (10:27→18:05)
[2022-02-03] MEDS ORDERED: HEPARIN SODIUM 1,000 UN/ML (10ML VL) IV PRN (11:17)
[2022-02-03] MEDS ORDERED: HEPARIN SODIUM 1,000 UN/ML (10ML VL) IV ONE (11:17)
--- NOTE | 2022-02-03 11:49 | P.PN ---
Subjective Progress Note Date: 02/03/22 Principal diagnosis: Status post left total knee arthroplasty Patient is evaluated today at bedside, he is resting in her hospital bed. It was noted patient had a upset chest pain this morning, nitroglycerin was given. Labs did reveal elevated troponin. Cardiology has been in to see the patient and determine this is likely a non-STEMI. The oral anticoagulant has been on ho ld, he was started on a heparin drip. Patient is being transferred to the cardiac stepdown unit for monitoring. Patient has a known cardiac history with previous heart attacks. With regards to the knee, he feels that it is improving. He has generalized soreness when up and ambulating. Objective - Vital Signs Vital signs: Vital Signs Temp 97.5 F L 02/03/22 07:00 Pulse 78 02/03/22 09:45 Resp 18 02/03/22 09:45 BP 126/67 02/03/22 09:45 Pulse Ox 91 L 02/03/22 09:45 FiO2 Intake & Output 02/02/22 02/03/22 02/03/22 18:59 06:59 18:59 Other: Voiding Method Toilet # Voids 6 2 # Bowel Movements 1 - Exam Left lower extremity: Incision is clean, dry, and intact. The exofin fusion tape is in good condition. There is minimal soft tissue swelling and ecchymosis surrounding the medial and lateral aspects of the incision. Calf is soft, no tenderness with palpation. Plantar flexion, dorsiflexion, EHL, FHL are intact. Sensory exam to light touch throughout the extremity is intact, dorsal pedis pulses 2+. - Labs CBC & Chem 7: 02/03/22 03:54 Labs: Abnormal Lab Results - Last 24 Hours (Table) 02/03/22 02/03/22 Range/Units 03:54 08:49 RBC 3.54 L (4.30-5.90) m/uL Hgb 11.5 L (13.0-17.5) gm/dL Hct 35.3 L (39.0-53.0) % Troponin I 0.246 H* (0.000-0.034) ng/mL Assessment and Plan Assessment: Postoperative day #2 status post left total knee arthroplasty Chest pain Non-STEMI Plan: Pain control, continue with current medications DVT prophylaxis, patient has been placed on a heparin drip due to his cardiac issue. Discussed with cardiology, likely transition to oral medication in the next 48 hours Wound care, continue light dressing over the exofin tape Ice and elevate the extremity Encourage incentive spirometer Continue work with PT/OT Medical recommendations Cardiac recommendations We'll continue to monitor patient during inpatient stay Time with Patient: Less than 30
[2022-02-03 11:56] LABS: Basophils % (A) 0 %; Eosinophils # (A) 0.1 k/uL (0-0.7); Eosinophils % (A) 1 %; HCT 36.4 % (39.0-53.0); HGB 11.7 gm/dL (13.0-17.5); Lymphocytes # (A) 1.3 k/uL (1.0-4.8); Lymphocytes % (A) 20 %; MCH 31.6 pg (25.0-35.0); MCHC 32.1 g/dL (31.0-37.0); MCV 98.4 fL (80.0-100.0); Mean Platelet Volume 8.4; Monocytes # (A) 0.5 k/uL (0-1.0); Monocytes % (A) 8 %; Neutrophils # (A) 4.4 k/uL (1.3-7.7); Neutrophils % (A) 69 %; Platelet Count 236 k/uL (150-450); RDW 13.6 % (11.5-15.5); WBC 6.4 k/uL (3.8-10.6)
[2022-02-03 12:04] LABS: INR 1.1 (<1.2); Partial Thromboplastin Time 28.8 sec (22.0-30.0); Prothrombin Time 11.6 sec (9.0-12.0)
[2022-02-03] MEDS: HEPARIN SOD,PORK IN 0.45% NACL 25,000 UNIT in 0.45% NACL 1 250ML.BAG IV SCH (12:09)
--- NOTE | 2022-02-03 12:11 | P.CRDCN ---
History of Present Illness Consult date: 02/03/22 History of present illness: HISTORY OF PRESENT ILLNESS: This is a 71-year-old male with a past medical history significant for artery disease with previous stenting, hyperlipidemia, and hypothyroidism. Patient follows in the office with Dr. Bolivar. We have been asked to see the patient in consultation for elevated troponin. Patient examined at the bedside. Patient underwent left total knee arthroplasty on 02/01/[address] Stallworth. This mor moises, the patient developed chest pain. The pain was in the middle of his chest and under his left breast. He denied any radiation of the pain. He received a nitro sublingual with relief of his chest pain. EKG performed at that time did not reveal any evidence of ischemia. However a troponin was completed that came back abnormal at 0.246. He currently denies any further chest pain or pressure. Vital signs are stable. * EKG reveals sinus mechanism with no signs of acute ischemia * Laboratory data: WBC 6.4. Hemoglobin 11.7. Platelet count 236. Troponin 0.246. * Current home cardiac medications include metoprolol tartrate 25 mg twice a day, Imdur 60 mg daily, Lipitor 80 mg at night, aspirin 81 mg daily * Most recent echocardiogram obtained in March 2019 revealed ejection fraction 55-60%, mild MR, mild TR * Cardiac catheterization history: February 2019 revealing patent stent to the diagonal branch and the left circumflex. Chronic occluded right coronary artery. Borderline significant lesion in the proximal LAD at the takeoff of the diagonal branch. Non-hemodynamic significant LAD lesion with fractional flow reserve. Medical management was recommended. REVIEW OF SYSTEMS: At the time of my exam: CONSTITUTIONAL: Denies fever or chills. HEENT: Denies blurred vision, vision changes, or eye pain. Denies hemoptysis CARDIOVASCULAR: Denies chest pain. Denies orthopnea. Denies PND. Denies palpitations RESPIRATORY: Denies shortness of breath. GASTROINTESTINAL: Denies abdominal pain. Denies nausea or vomiting. HEMATOLOGIC: Denies bleeding disorders. GENITOURINARY: Denies any blood in urine. SKIN: Denies pruitis. Denies rash. PHYSICAL EXAM: VITAL SIGNS: Reviewed. GENERAL: Well-developed in no acute distress. HEENT: Head is normocephalic. Pupils are equal, round. Sclerae anicteric. Mucous membranes of the mouth are moist. Neck supple. No JVD or thyromegaly LUNGS: Respirations even and unlabored. Lungs essentially clear to auscultation bilaterally. HEART: Regular rate and rhythm. S1 and S2 heard. ABDOMEN: Soft. Nondistended. Nontender. EXTREMITIES: Normal range of motion. No clubbing or cyanosis. Peripheral pulses intact. No lower extremity edema NEUROLOGIC: Awake and alert. Oriented x 3. ASSESSMENT: Osteoarthritis, status post left total knee arthroplasty Non-STEMI Coronary artery disease with previous stenting to the diagonal branch of left circumflex Chronically occluded RCA Hyperlipidemia Hypothyroidism PLAN: Continue current cardiac medications Increase metoprolol to 25mg TID Trend troponins Obtain BMP Obtain 2D echo to assess cardiac structure and function. Patient placed on Xarelto postoperatively for DVT prophylaxis per orthopedics. Case discussed with EDNA Castano. We will discontinue Xarelto at this time. Plan for IV heparin for 48 hours and then will transition back to Xarelto 10mg daily Will plan to manage medically unless patient develops recurrent chest pain Repeat EKG in AM Further recommendations pending patient course Nurse practitioner note has been reviewed by physician. Signing provider agrees with the documented findings, assessment, and plan of care. Past Medical History Past Medical History: Coronary Artery Disease (CAD), Chest Pain / Angina, COPD, Hyperlipidemia, Myocardial Infarction (OR), Osteoarthritis (OA), Pneumonia, Prostate Disorder, Seizure Disorder Additional Past Medical History / Comment(s): COPD. SOB ALWAYS. Coronary artery disease. Diverticulosis. Seizure disorder(NONE IN MANY YEARS)> hypertension, hyperlipidemia, chronic back pain and the patient has astimulator. The patient also has degenerative disc disease and chronic back pain. He suffers from BPH, carpal tunnel disease Last Myocardial Infarction Date:: 06/22/18 History of Any Multi-Drug Resistant Organisms: None Reported Past Surgical History: Adenoidectomy, Back Surgery, Cholecystectomy, Heart Catheterization With Stent, Orthopedic Surgery, Tonsillectomy Additional Past Surgical History / Comment(s): Multiple back surgeries including a pain stimulator in place/hardware, R knee surgery with hardware, L rotator cuff repair x 4/cadaver bone, colonoscopy Past Anesthesia/Blood Transfusion Reactions: No Reported Reaction Date of Last Stent Placement:: 06/22/18 Past Psychological History: No Psychological Hx Reported Additional Psychological History / Comment(s): Pt resides alone in an apartment. He uses a cane prn. He drives. Smoking Status: Current every day smoker Past Alcohol Use History: None Reported Additional Past Alcohol Use History / Comment(s): TRYING TO QUIT.Pt started smoking in 1958 and quit November of 2018. Past Drug Use History: None Reported - Past Family History Father Family Medical History: Cancer Additional Family Medical History / Comment(s): Liver cancer. Mother Additional Family Medical History / Comment(s): Brain aneurysm Sister(s) Family Medical History: Cancer Additional Family Medical History / Comment(s): Lung cancer Brother(s) Family Medical History: No Reported History Family Family Medical History: Unable to Obtain Medications and Allergies Home Medications Medication Instructions Recorded Confirmed Type Pregabalin [Lyrica] 150 mg PO BID 06/20/18 02/01/22 History Aspirin 81 mg PO DAILY #30 chew 06/24/18 02/01/22 Rx Atorvastatin [Lipitor] 80 mg PO HS 10/29/18 02/01/22 History HYDROcodone/APAP 10-325MG [Ber[place] 1 tab PO Q6H PRN 02/13/19 02/01/22 History 10-325] Metoprolol Tartrate [Lopressor] 25 mg PO BID 02/13/19 02/01/22 History Nitroglycerin 0.4 mg SL Q5M PRN 02/13/19 02/01/22 History Omeprazole 20 mg PO HS 02/13/19 02/01/22 History Isosorbide Mononitrate ER [Imdur] 60 mg PO QAM 02/19/19 02/01/22 History Albuterol Nebulized (Conc) 2.5 mg INHALATION Q6H PRN 10/20/21 02/01/22 History [Ventolin Nebulized (Conc)] Albuterol Sulfate [Ventolin HFA] 1 - 2 puff INHALATION Q6H PRN 10/20/21 02/01/22 History Cetirizine HCl [Zyrtec] 10 mg PO DAILY 10/20/21 02/01/22 History Cyclobenzaprine HCl 7.5 mg PO TID BETWEEN MEALS 10/20/21 02/01/22 History Ezetimibe [Zetia] 10 mg PO DAILY 10/20/21 02/01/22 History Levothyroxine Sodium [Synthroid] 50 mcg PO QAM 10/20/21 02/01/22 History Lidocaine 4% Cream [Lmx 4] 1 applic TOPICAL BID 10/20/21 02/01/22 History Naproxen [Naprosyn] 500 mg PO Q12HR 10/20/21 02/01/22 History Tamsulosin [Flomax] 0.4 mg PO BID 10/20/21 02/01/22 History Colchicine [Mitigare] 0.6 mg PO DAILY 01/31/22 02/01/22 History Allergies Allergy/AdvReac Type Severity Reaction Status Date / Time No Known Allergies Allergy Verified 02/01/22 10:48 Physical Exam Vitals: Vital Signs Temp Pulse Resp BP Pulse Ox 02/03/22 09:45 78 18 126/67 91 L 02/03/22 07:00 97.5 F L 82 18 162/86 95 02/03/22 01:50 97.9 F 70 20 147/79 95 02/02/22 19:11 97.9 F 78 20 142/78 95 02/02/22 13:33 97.9 F 77 17 115/70 94 L Intake and Output 02/02/22 02/03/22 02/03/22 22:59 06:59 14:59 Other: # Voids 1 2 # Bowel Movements 1 Results 02/03/22 03:54 Cardiac Enzymes 02/03/22 Range/Units 08:49 Troponin I 0.246 H* (0.000-0.034) ng/mL CBC 02/03/22 Range/Units 03:54 WBC 6.3 (3.8-10.6) k/uL RBC 3.54 L (4.30-5.90) m/uL Hgb 11.5 L (13.0-17.5) gm/dL Hct 35.3 L (39.0-53.0) % Plt Count 230 (150-450) k/uL Current Medications Generic Name Dose Route Start Last Admin Trade Name Freq PRN Reason Stop Dose Admin Hydrocodone Bitart/Acetaminophen 1 each 02/01/22 14:33 Hydrocodone/Apap 5-325mg 1 Each Tab PO 03/03/22 14:34 Q4HR PRN Pain Scale 1 to 5 Hydrocodone Bitart/Acetaminophen 1 each 02/01/22 14:33 02/03/22 07:45 Hydrocodone/Apap 10-325mg 1 Each Tab PO 03/03/22 14:34 1 each Q4H PRN Administration Pain Scale 6 to 10 Albuterol Sulfate 2.5 mg 02/02/22 08:08 Albuterol Nebulized 2.5 Mg/3 Ml INHALATION RT-Q6H PRN Shortness Of Breath Aspirin 81 mg 02/02/22 09:00 02/03/22 10:25 Aspirin 81 Mg PO 81 mg DAILY YULIA Administration Atorvastatin Calcium 80 mg 02/02/22 21:00 02/02/22 20:21 Atorvastatin 80 Mg Tab PO 80 mg HS YULIA Administration Colchicine 0.6 mg 02/02/22 09:00 02/03/22 10:27 Colchicine 0.6 Mg Each PO 0.6 mg DAILY YULIA Administration Ropivacaine 1,090 mg/ Bandage/ 0 mg 02/01/22 15:02 02/01/22 16:00 Support Products 1 each MISCELLANE 03/03/22 15:03 1,090 mg Q2H PRN Administration Breakthrough Pain Cyclobenzaprine HCl 7.5 mg 02/02/22 10:00 02/03/22 10:27 Cyclobenzaprine 5 Mg Tab PO 7.5 mg TID BETWEEN MEALS YULIA Administration Ezetimibe 10 mg 02/02/22 09:00 02/03/22 10:25 Ezetimibe 10 Mg Tab PO 10 mg DAILY YULIA Administration Heparin Sodium (Porcine) 0 unit 02/03/22 11:17 Heparin Sodium 1,000 Un/Ml (10ml Vl) IV PER PROTOCOL PRN Low PTT Protocol Hydromorphone HCl 0.5 mg 02/01/22 14:33 Hydromorphone 0.5 Mg/0.5 Ml Syringe IVP 03/03/22 14:34 Q3HR PRN Pain Scale 7 to 10 Hydromorphone HCl 0.25 mg 02/01/22 14:33 Hydromorphone 0.5 Mg/0.5 Ml Syringe IVP 03/03/22 14:34 Q3HR PRN Pain Scale 4 to 6 Hydroxyzine Pamoate 25 mg 02/02/22 12:06 02/02/22 20:21 Hydroxyzine Pamoate 25 Mg Cap PO 25 mg Q6HR PRN Administration Itching Lactated Ringer's 1,000 mls @ 20 mls/hr 02/01/22 06:07 02/03/22 06:26 Lactated Ringers IV 03/03/22 06:08 Not Given .Q24H YULIA Heparin Sodium/Sodium Chloride 250 mls @ 10 mls/hr 02/03/22 11:30 25,000 unit/ Sodium Chloride IV .Q24H [facility] Protocol 11.862 UNITS/KG/HR Isosorbide Mononitrate 60 mg 02/02/22 09:00 02/03/22 10:26 Isosorbide Mononitrate Er 60 Mg Tab.Er.24h PO 60 mg QAM YULIA Administration Levothyroxine Sodium 50 mcg 02/02/22 09:00 02/03/22 06:30 Levothyroxine 50 Mcg Tab PO 50 mcg DAILY@0630 YULIA Administration Lidocaine HCl 0.1 ml 02/01/22 06:07 Lidocaine 1% (10mg/Ml) For Iv Start INTRADERMA 03/03/22 06:08 PER PROTOCOL PRN IV Start Loratadine 10 mg 02/02/22 09:00 02/03/22 10:25 Loratadine 10 Mg Tab PO 10 mg DAILY YULIA Administration Metoprolol Tartrate 25 mg 02/03/22 16:00 Metoprolol Tartrate 25 Mg Tab PO TID YULIA Naloxone HCl 0.2 mg 02/01/22 14:33 Naloxone 0.4 Mg/Ml 1 Ml Vial IV 03/03/22 14:34 Q2M PRN Opioid Reversal Nitroglycerin 0.4 mg 02/02/22 08:08 02/03/22 07:49 Nitroglycerin Sl Tabs 0.4 Mg Tab SUBLINGUAL 0.4 mg Q5M PRN Administration Chest Pain Pantoprazole Sodium 40 mg 02/02/22 21:00 02/02/22 20:21 Pantoprazole 40 Mg Tablet PO 40 mg HS YULIA Administration Pregabalin 150 mg 02/02/22 09:00 02/03/22 10:26 Pregabalin 75 Mg Cap PO 150 mg BID YULIA Administration Senna/Docusate Sodium 2 each 02/01/22 21:00 02/02/22 20:20 Sennosides-Docusate Sodium 1 Each Tab PO 03/03/22 21:01 2 each HS YULIA Administration Tamsulosin HCl 0.4 mg 02/02/22 09:00 02/03/22 10:26 Tamsulosin 0.4 Mg Cap.Er.24h PO 0.4 mg BID YULIA Administration Intake and Output 02/02/22 02/03/22 02/03/22 22:59 06:59 14:59 Other: # Voids 1 2 # Bowel Movements 1 02/03/22 03:54
[2022-02-03 13:00] LABS: Calcium 9.2 mg/dL (8.4-10.2); Potassium 3.7 mmol/L (3.5-5.1)
--- NOTE | 2022-02-03 13:55 | P.PN ---
Subjective Progress Note Date: 02/03/22 Matthieu Thomas, he is a 71-year-old male well-known to my practice was admitted to [facility] by Dr. Stallworth, and underwent left total knee arthroplasty on 02/01/2022 consultation was requested for medical management while hospitalized. Patient has a known history of hypertension, hyperlipidemia, degenerative osteoarthritis, degenerative disc disease, history of diastolic congestive heart failure, history of chronic obstructive pulmonary disease, and history of seizure disorder. On review of systems patient was seen and examined on 02/02/2022 he is alert and oriented 3 in no apparent distress there is no fever or chills no headache or dizziness no chest pain no shortness of breath no cough no nausea or vomiting no abdominal pain no diarrhea no blood in the stools no burning with urination no frequency or urgency and no hematuria. There is no weakness or numbness in any of the extremities there is no change in vision speech or gait. On 02/03/2022 patient was seen and examined on the medical floor he is alert and oriented 3 in no apparent distress he had an episode of chest pain this morning he was given sublingual nitroglycerin and his chest pain resolved, EKG was done and did not reveal significant abnormality, troponin level was done and was elevated at 2.46 otherwise patient denies any complaints at this time there is no fever or chills no headache or dizziness no chest pain no shortness of breath no cough no nausea or vomiting no abdominal pain no diarrhea and no urinary symptoms. Cardiology consultation was requested due to episode of chest pain and elevated troponin they are recommending transferring patient to telemetry floor and starting IV heparin Objective - Vital Signs Vital signs: Vital Signs Temp 98.0 F 02/03/22 12:55 Pulse 76 02/03/22 12:55 Resp 16 02/03/22 12:55 BP 103/71 02/03/22 12:55 Pulse Ox 93 L 02/03/22 12:55 FiO2 Intake & Output 02/02/22 02/03/22 02/03/22 18:59 06:59 18:59 Other: Voiding Method Toilet # Voids 6 2 1 # Bowel Movements 1 - Exam In general patient is alert and oriented x 3 in no distress HEENT head normocephalic and atraumatic Neck is supple no JVD no goiter no lymphadenopathy no carotid bruit Chest examination is clear to auscultation no crackles no wheezing Cardiac exam reveals regular heart sounds S1 and S2 no gallops no murmurs Abdomen is soft nontender no organomegaly with normal bowel sounds Extremity exam reveals no edema no cyanosis or clubbing Neurological examination reveals no gross focal deficits - Labs CBC & Chem 7: 02/03/22 11:34 02/03/22 11:34 Labs: Abnormal Lab Results - Last 24 Hours (Table) 02/03/22 02/03/22 02/03/22 Range/Units 03:54 08:49 11:34 RBC 3.54 L 3.70 L (4.30-5.90) m/uL Hgb 11.5 L 11.7 L (13.0-17.5) gm/dL Hct 35.3 L 36.4 L (39.0-53.0) % Glucose (74-99) mg/dL Troponin I 0.246 H* (0.000-0.034) ng/mL 02/03/22 02/03/22 Range/Units 11:34 11:34 RBC (4.30-5.90) m/uL Hgb (13.0-17.5) gm/dL Hct (39.0-53.0) % Glucose 102 H (74-99) mg/dL Troponin I 0.200 H* (0.000-0.034) ng/mL Assessment and Plan Plan: Osteoarthritis, status post left total knee arthroplasty yesterday Underlying history of hypertension Underlying history of diastolic congestive heart failure Underlying history of chronic obstructive pulmonary disease Underlying history of hyperlipidemia Underlying history of seizure disorder Underlying history of degenerative disc disease maintained on pain management and back stimulator At this time home medications reviewed and reordered DVT prophylaxis and pain management as per orthopedic protocol Will check labs closely and follow during this admission
[2022-02-03] MEDS: HYDROmorphone 0.5 MG/0.5 ML SYRINGE IVP PRN ×2 (15:35→21:35)
[2022-02-03] MEDS: SENNOSIDES-DOCUSATE SODIUM 1 EACH TAB PO SCH (21:30)
[2022-02-03] MEDS: PANTOPRAZOLE 40 MG TABLET PO SCH (21:30)
[2022-02-03] MEDS: ATORVASTATIN 80 MG TAB PO SCH (21:30)
[2022-02-04] MEDS: HYDROcodone/APAP 10-325MG 1 EACH TAB PO PRN ×4 (04:00→17:46)
[2022-02-04] MEDS: LEVOTHYROXINE 50 MCG TAB PO SCH (06:08)
[2022-02-04] MEDS: LACTATED RINGERS 1,000 ML IV SCH (06:10)
[2022-02-04 06:24] LABS: Basophils % (A) 0 %; Eosinophils # (A) 0.2 k/uL (0-0.7); Eosinophils % (A) 4 %; HCT 36.5 % (39.0-53.0); HGB 11.5 gm/dL (13.0-17.5); Lymphocytes # (A) 1.3 k/uL (1.0-4.8); Lymphocytes % (A) 22 %; MCHC 31.6 g/dL (31.0-37.0); MCV 98.4 fL (80.0-100.0); Monocytes # (A) 0.4 k/uL (0-1.0); Monocytes % (A) 7 %; Neutrophils # (A) 3.8 k/uL (1.3-7.7); Neutrophils % (A) 65 %; Platelet Count 246 k/uL (150-450); RBC 3.72 m/uL (4.30-5.90); RDW 13.6 % (11.5-15.5); WBC 5.9 k/uL (3.8-10.6)
[2022-02-04 06:34] LABS: INR 0.9 (<1.2); Prothrombin Time 10.2 sec (9.0-12.0)
[2022-02-04 06:47] LABS: Albumin 3.3 g/dL (3.5-5.0); Potassium 3.9 mmol/L (3.5-5.1); Total Protein 5.7 g/dL (6.3-8.2)
[2022-02-04 06:49] LABS: Calcium 8.8 mg/dL (8.4-10.2); Total Bilirubin 0.3 mg/dL (0.2-1.3)
[2022-02-04] MEDS: EZETIMIBE 10 MG TAB PO SCH (07:54)
[2022-02-04] MEDS: TAMSULOSIN 0.4 MG CAP.ER.24H PO SCH ×2 (07:55→21:10)
[2022-02-04] MEDS: METOPROLOL TARTRATE 25 MG TAB PO SCH ×3 (07:55→21:13)
[2022-02-04] MEDS: ASPIRIN 81 MG PO SCH (07:55)
[2022-02-04] MEDS: ISOSORBIDE MONONITRATE ER 60 MG TAB.ER.24H PO SCH (07:55)
[2022-02-04] MEDS: LORATADINE 10 MG TAB PO SCH (07:55)
[2022-02-04] MEDS: PREGABALIN 75 MG CAP PO SCH ×2 (07:55→21:10)
[2022-02-04] MEDS: COLCHICINE 0.6 MG EACH PO SCH (07:59)
--- NOTE | 2022-02-04 08:58 | CA ---
Transthoracic Echo Report Name: Matthieu Thomas Age: 71 Gender: M : 1950 Exam Date: 02/03/2022 13:29 Exam Location: [place] [facility] Ht (in): 66 Wt (lb): 186 Ordering Physician: Carolina العلي Attending/Referring Phys: [id number], Sever[employer] Pamela Karimi, MAXIMILIAN Procedure CPT: Indications: lv function, elevated trops Cardiac Hx: Copd, MS times 3, cath with 3 stents Technical Quality: Technically difficult study Contrast 1: Lumason Total Dose (mL): 1 Contrast 2: Total Dose (mL): MEASUREMENTS (Male / Female) Normal Values 2D ECHO LV Diastolic Diameter PLAX 3.7 cm 4.2 - 5.9 / 3.9 - 5.3 cm LV Systolic Diameter PLAX 2.5 cm IVS Diastolic Thickness 1.3 cm 0.6 - 1.0 / 0.6 - 0.9 cm LVPW Diastolic Thickness 1.4 cm 0.6 - 1.0 / 0.6 - 0.9 cm LV Relative Wall Thickness 0.7 M-MODE Aortic Root Diameter MM 4.2 cm LA Systolic Diameter MM 2.9 cm LA Ao Ratio MM 0.7 MV E Point Septal Separation 2.5 cm AV Cusp Separation MM 2.0 cm DOPPLER AV Peak Velocity 87.8 cm/s AV Peak Gradient 3.1 mmHg MV Area PHT 2.9 cm??? MR Peak Velocity 113.7 cm/s MR Peak Gradient 5.2 mmHg Mitral E Point Velocity 53.7 cm/s Mitral A Point Velocity 79.5 cm/s Mitral E to A Ratio 0.7 MV Deceleration Time 263.6 ms TR Peak Velocity 191.4 cm/s TR Peak Gradient 14.6 mmHg Right Ventricular Systolic Press 19.6 mmHg FINDINGS Left Ventricle Mildly increased septal wall thickness. Left ventricular ejection fraction is estimated at 50-55_ %. Left ventricular cavity size normal. Lumason used to visualize heart muscle. Right Ventricle Right ventricle not well visualized. Right Atrium Right atrium not well visualized. Left Atrium The left atrium is normal in size. Mitral Valve Structurally normal mitral valve without significant stenosis or prolapse. There is trace mitral regurgitation. Aortic Valve Structurally normal aortic valve without significant sclerosis or stenosis. There is no aortic regurgitation. Tricuspid Valve Structurally normal tricuspid valve without significant stenosis. Pulmonary artery systolic pressure is normal. Trace of tricuspid regurgitation. Pulmonic Valve Structurally normal pulmonic valve without significant stenosis. There is no pulmonic regurgitation. Pericardium Normal pericardium without effusion. 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 CONCLUSIONS LV size is normal. Technically difficult study. Echo contrast was used. Ejection fraction is in the 50-55% range. Some of the valve structures are not well seen. There is no significant mitral or tricuspid insufficiency. Pulmonary pressures are not well quantified but probably unremarkable. No pericardial effusion Previewed by: Dr. Nneka Cedillo MD (Electronically Signed) Final Date: 04 February 2022 08:57
--- NOTE | 2022-02-04 09:44 | P.PN ---
Subjective Progress Note Date: 02/04/22 Principal diagnosis: Left knee osteoarthritis Patient was seen at bedside this morning resting comfortably. Patient says his knee is doing much better and he has been walking around the room. Patient says most of the pain he has is at the front of his knee. Patient says he has been attempting to perform exercises on his LLE. Patient has worked with physical therapy this morning. Patient did have elevated troponin which has been trending down. Cardiology did start patient on a heparin drip and wants to continue the drip for another 24 hours. Patient says he has not had any chest pain since the single episode yesterday morning. Patient denies chest pain, fever, shortness breath, nausea, vomiting, change in vision, loss of bowel/bladder control. Objective - Vital Signs Vital signs: Vital Signs Temp 97.6 F 02/04/22 07:53 Pulse 80 02/04/22 07:53 Resp 17 02/04/22 07:53 BP 141/79 02/04/22 07:53 Pulse Ox 94 L 02/04/22 07:53 FiO2 Intake & Output 02/03/22 02/04/22 02/04/22 18:59 06:59 18:59 Intake Total 354 Balance 354 Intake: Oral 354 Other: Voiding Method Toilet Toilet Urinal # Voids 1 - Exam Left knee: Incision is clean, dry, and intact. The exofin fusion tape is in good co ndition. There is minimal soft tissue swelling and ecchymosis surrounding the medial and lateral aspects of the incision. Calf is soft, no tenderness with palpation. Plantar flexion, dorsiflexion, EHL, FHL are intact. Sensory exam to light touch throughout the extremity is intact, dorsal pedis pulses 2+. - Labs CBC & Chem 7: 02/04/22 05:58 02/04/22 05:58 Labs: Abnormal Lab Results - Last 24 Hours (Table) 02/03/22 02/03/22 02/03/22 Range/Units 08:49 11:34 11:34 RBC 3.70 L (4.30-5.90) m/uL Hgb 11.7 L (13.0-17.5) gm/dL Hct 36.4 L (39.0-53.0) % APTT (22.0-30.0) sec Sodium (137-145) mmol/L Glucose (74-99) mg/dL Troponin I 0.246 H* 0.200 H* (0.000-0.034) ng/mL Total Protein (6.3-8.2) g/dL Albumin (3.5-5.0) g/dL 02/03/22 02/03/22 02/03/22 Range/Units 11:34 14:44 17:55 RBC (4.30-5.90) m/uL Hgb (13.0-17.5) gm/dL Hct (39.0-53.0) % APTT 50.0 H (22.0-30.0) sec Sodium (137-145) mmol/L Glucose 102 H (74-99) mg/dL Troponin I 0.192 H* (0.000-0.034) ng/mL Total Protein (6.3-8.2) g/dL Albumin (3.5-5.0) g/dL 02/04/22 02/04/22 Range/Units 05:58 05:58 RBC 3.72 L (4.30-5.90) m/uL Hgb 11.5 L (13.0-17.5) gm/dL Hct 36.5 L (39.0-53.0) % APTT (22.0-30.0) sec Sodium 135 L (137-145) mmol/L Glucose (74-99) mg/dL Troponin I (0.000-0.034) ng/mL Total Protein 5.7 L (6.3-8.2) g/dL Albumin 3.3 L (3.5-5.0) g/dL Assessment and Plan Assessment: 1. Left knee osteoarthritis Postoperative day #3 status post left total knee arthroplasty 2. Elevated troponin Plan: 1. Left knee osteoarthritis - left total knee arthroplasty performed 02/01/2022. Patient stable at bedside this morning. Patient has been up and walking around the room under his own power. Plan is for continuation of heparin drip for another 24 hours and discharge home with health services tomorrow. 2. Appreciate medical management 3. Pain management - [place]; Lyrica; Flexeril 4. DVT prophylaxis - heparin drip; andrey be discharge home with Eliquis 5. GI prophylaxis - Protonix; senna; will be discharged home with Colace 6. PT/OT - WBAT w/walker 7. Encourage incentive spirometer use 8. Discharge planning - plan home with health services tomorrow Time with Patient: Less than 30
[2022-02-04] MEDS: CYCLOBENZAPRINE 5 MG TAB PO SCH ×3 (10:59→17:47)
[2022-02-04] MEDS: HYDROmorphone 0.5 MG/0.5 ML SYRINGE IVP PRN ×2 (10:59→21:09)
--- NOTE | 2022-02-04 11:37 | P.PN ---
Subjective This is a 71-year-old male with a past medical history significant for artery disease with previous stenting, hyperlipidemia, and hypothyroidism. Patient follows in the office with Dr. Bolivar. We have been asked to see the patient in consultation for elevated troponin. Patient examined at the bedside. Patient underwent left total knee arthroplasty on 02/01/[address] Stallworth. This morning, the patient developed chest pain. The pain was in the middle of his chest and under his left breast. He denied any radiation of the pain. He received a nitro sublingual with relief of his chest pain. EKG performed at that time did not reveal any evidence of ischemia. However a troponin was completed that came back abnormal at 0.246. He currently denies any further chest pain or pressure. Vital signs were stable and patient was transferred to for further monitoring. 02/04/2022: Patient seen and examined at bedside, no acute distress. Denies any chest pain or shortness of breath. Repeat EKG revealed no acute changes. Troponins 0.24, 0.20, 0.19. Echocardiogram revealed EF of 5055 %, no significant wall motion abnormality abnormalities. No pericardial effusion. Meds: IV heparin drip, aspirin 81 mg daily, atorvastatin 80 mg nightly, Zetia, Imdur 60 mg daily, metoprolol titrate 25 mg 3 times a day PHYSICAL EXAM: VITAL SIGNS: Reviewed. GENERAL: Well-developed in no acute distress. HEENT: Neck supple. No JVD LUNGS: Respirations even and unlabored. Lungs essentially clear to auscultation bilaterally. HEART: Regular rate and rhythm. S1 and S2 heard. ABDOMEN: Soft. Nondistended. Nontender. EXTREMITIES: Normal range of motion. No clubbing or cyanosis. Peripheral pulses intact. No lower extremity edema NEUROLOGIC: Awake and alert. Oriented x 3. ASSESSMENT: Osteoarthritis, status post left total knee arthroplasty Elevated troponin with concern for NSTEMI after total knee arthroplasty Coronary artery disease with previous stenting to the diagonal branch of left circumflex Chronically occluded RCA Hyperlipidemia Hypothyroidism PLAN: Continue current cardiac medications Continue metoprolol to 25mg TID Patient placed on Xarelto postoperatively for DVT prophylaxis per orthopedics. Case discussed with EDNA Castano. Plan for IV heparin for 48 hours and then will transition back to Xarelto 10mg daily tomorrow 02/05/22. Will plan to manage medically unless patient develops recurrent chest pain Likely discharge tomorrow Further recommendations pending patient course Nurse practitioner note has been reviewed by physician. Signing provider agrees with the documented findings, assessment, and plan of care. Objective - Vital Signs Vital signs: Vital Signs Temp 98.0 F 02/03/22 12:55 Pulse 76 02/03/22 12:55 Resp 16 02/03/22 12:55 BP 103/71 02/03/22 12:55 Pulse Ox 93 L 02/03/22 12:55 FiO2 Intake & Output 02/02/22 02/03/22 02/03/22 18:59 06:59 18:59 Other: Voiding Method Toilet # Voids 6 2 1 # Bowel Movements 1 - Labs CBC & Chem 7: 02/04/22 05:58 02/04/22 05:58 Labs: Abnormal Lab Results - Last 24 Hours (Table) 02/03/22 02/03/22 02/03/22 Range/Units 03:54 08:49 11:34 RBC 3.54 L 3.70 L (4.30-5.90) m/uL Hgb 11.5 L 11.7 L (13.0-17.5) gm/dL Hct 35.3 L 36.4 L (39.0-53.0) % Glucose (74-99) mg/dL Troponin I 0.246 H* (0.000-0.034) ng/mL 02/03/22 02/03/22 Range/Units 11:34 11:34 RBC (4.30-5.90) m/uL Hgb (13.0-17.5) gm/dL Hct (39.0-53.0) % Glucose 102 H (74-99) mg/dL Troponin I 0.200 H* (0.000-0.034) ng/mL
[2022-02-04] MEDS: HEPARIN SOD,PORK IN 0.45% NACL 25,000 UNIT in 0.45% NACL 1 250ML.BAG IV SCH (12:09)
--- NOTE | 2022-02-04 18:57 | P.PN ---
Subjective Progress Note Date: 02/04/22 Matthieu Thomas, he is a 71-year-old male well-known to Dr. Franks was admitted to [facility] by Dr. Stallworth, and underwent left total knee arthroplasty on 02/01/2022 consultation was requested for medical management while hospitalized. Patient has a known history of hypertension, hyperlipidemia, degenerative osteoarthritis, degenerative disc disease, history of diastolic congestive heart failure, history of chronic obstructive pulmonary disease, and history of seizure disorder. On review of systems patient was seen and examined on 02/02/2022 he is alert and oriented 3 in no apparent distress there is no fever or chills no headache or dizziness no chest pain no shortness of breath no cough no nausea or vomiting no abdominal pain no diarrhea no blood in the stools no burning with urination no frequency or urgency and no hematuria. There is no weakness or numbness in any of the extremities there is no change in vision speech or gait. On 02/03/2022 patient was seen and examined on the medical floor he is alert and oriented 3 in no apparent distress he had an episode of chest pain this morning he was given sublingual nitroglycerin and his chest pain resolved, EKG was done and did not reveal significant abnormality, troponin level was done and was elevated at 2.46 otherwise patient denies any complaints at this time there is no fever or chills no headache or dizziness no chest pain no shortness of breath no cough no nausea or vomiting no abdominal pain no diarrhea and no urinary symptoms. Cardiology consultation was requested due to episode of chest pain and elevated troponin they are recommending transferring patient to telemetry floor and starting IV heparin 02/04/2022 This is a male who was admitted under orthopedic services for left total knee arthoplasty and had an episode of chest pain. Patient has been evaluated by cardiology who recommend monitoring closely overnight for any further events and to continue telemetry monitoring along with IV heparin. Troponins were elevated and cardiology recommend outpatient follow up. Patient will transition back to xarelto on discharge. Patient reports no further chest pain and denies shortness of breath. Patient is afebrile. Patient has been up and working with physical therapy. Patient reports being sent home tomorrow. Review of systems: Constitutional: No reports of fatigue, fever, or chills Cardiovascular: No reports of chest pain or palpitations Respiratory: No reports of shortness of breath or cough GI: no reports of nausea, no reports of of vomiting, patient reports passing gas : No reports of dysuria or retention Neurovascular: no reports of generalized weakness,reports some mild left knee pain All medications have been reviewed Active Medications Hydrocodone Bitart/Acetaminophen (Hydrocodone/Apap 5-325mg 1 Each Tab) 1 each PO Q4HR PRN PRN Reason: Pain Scale 1 to 5 Stop: 03/03/22 14:34 Hydrocodone Bitart/Acetaminophen (Hydrocodone/Apap 10-325mg 1 Each Tab) 1 each PO Q4H PRN PRN Reason: Pain Scale 6 to 10 Stop: 03/03/22 14:34 Last Admin: 02/04/22 12:08 Dose: 1 each Albuterol Sulfate (Albuterol Nebulized 2.5 Mg/3 Ml) 2.5 mg INHALATION RT-Q6H PRN PRN Reason: Shortness Of Breath Aspirin (Aspirin 81 Mg) 81 mg PO DAILY [facility] Last Admin: 02/04/22 07:55 Dose: 81 mg Atorvastatin Calcium (Atorvastatin 80 Mg Tab) 80 mg PO HS [facility] Last Admin: 02/03/22 21:30 Dose: 80 mg Colchicine (Colchicine 0.6 Mg Each) 0.6 mg PO DAILY [facility] Last Admin: 02/04/22 07:59 Dose: 0.6 mg Ropivacaine 1,090 mg/ Bandage/ (Support Products 1 each) 0 mg MISCELLANE Q2H PRN PRN Reason: Breakthrough Pain Stop: 03/03/22 15:03 Last Admin: 02/01/22 16:00 Dose: 1,090 mg Cyclobenzaprine HCl (Cyclobenzaprine 5 Mg Tab) 7.5 mg PO TID BETWEEN MEALS [facility] Last Admin: 02/04/22 10:59 Dose: 7.5 mg Ezetimibe (Ezetimibe 10 Mg Tab) 10 mg PO DAILY [facility] Last Admin: 02/04/22 07:54 Dose: 10 mg Heparin Sodium (Porcine) (Heparin Sodium 1,000 Un/Ml (10ml Vl)) 0 unit IV PER PROTOCOL PRN; Protocol PRN Reason: Low PTT Hydromorphone HCl (Hydromorphone 0.5 Mg/0.5 Ml Syringe) 0.5 mg IVP Q3HR PRN PRN Reason: Pain Scale 7 to 10 Stop: 03/03/22 14:34 Last Admin: 02/04/22 10:59 Dose: 0.5 mg Hydromorphone HCl (Hydromorphone 0.5 Mg/0.5 Ml Syringe) 0.25 mg IVP Q3HR PRN PRN Reason: Pain Scale 4 to 6 Stop: 03/03/22 14:34 Hydroxyzine Pamoate (Hydroxyzine Pamoate 25 Mg Cap) 25 mg PO Q6HR PRN PRN Reason: Itching Last Admin: 02/02/22 20:21 Dose: 25 mg Lactated Ringer's (Lactated Ringers) 1,000 mls @ 20 mls/hr IV .Q24H [facility] Stop: 03/03/22 06:08 Last Admin: 02/04/22 06:10 Dose: 20 mls/hr Heparin Sodium/Sodium Chloride (25,000 unit/ Sodium Chloride) 250 mls @ 10 mls/hr IV .Q24H [facility]; Protocol Last Admin: 02/04/22 12:09 Dose: 11.862 units/kg/hr, 10 mls/hr Isosorbide Mononitrate (Isosorbide Mononitrate Er 60 Mg Tab.Er.24h) 60 mg PO QAM [facility] Last Admin: 02/04/22 07:55 Dose: 60 mg Levothyroxine Sodium (Levothyroxine 50 Mcg Tab) 50 mcg PO DAILY@0630 [facility] Last Admin: 02/04/22 06:08 Dose: 50 mcg Lidocaine HCl (Lidocaine 1% (10mg/Ml) For Iv Start) 0.1 ml INTRADERMA PER PROTOCOL PRN PRN Reason: IV Start Stop: 03/03/22 06:08 Loratadine (Loratadine 10 Mg Tab) 10 mg PO DAILY [facility] Last Admin: 02/04/22 07:55 Dose: 10 mg Metoprolol Tartrate (Metoprolol Tartrate 25 Mg Tab) 25 mg PO TID [facility] Last Admin: 02/04/22 07:55 Dose: 25 mg Naloxone HCl (Naloxone 0.4 Mg/Ml 1 Ml Vial) 0.2 mg IV Q2M PRN PRN Reason: Opioid Reversal Stop: 03/03/22 14:34 Nitroglycerin (Nitroglycerin Sl Tabs 0.4 Mg Tab) 0.4 mg SUBLINGUAL Q5M PRN PRN Reason: Chest Pain Last Admin: 02/03/22 07:49 Dose: 0.4 mg Pantoprazole Sodium (Pantoprazole 40 Mg Tablet) 40 mg PO [facility] Last Admin: 02/03/22 21:30 Dose: 40 mg Pregabalin (Pregabalin 75 Mg Cap) 150 mg PO BID [facility] Last Admin: 02/04/22 07:55 Dose: 150 mg Senna/Docusate Sodium (Sennosides-Docusate Sodium 1 Each Tab) 2 each PO HS [facility] Stop: 03/03/22 21:01 Last Admin: 02/03/22 21:30 Dose: 2 each Tamsulosin HCl (Tamsulosin 0.4 Mg Cap.Er.24h) 0.4 mg PO BID [facility] Last Admin: 02/04/22 07:55 Dose: 0.4 mg PHYSICAL EXAMINATION: GENERAL: The patient is alert and oriented x4, Well developed, well nourished. HEENT: Pupils are round and equally reacting to light. EOMI. no scleral icterus. No conjunctival pallor. Normocephalic, atraumatic. No pharyngeal erythema. No thyromegaly. CARDIOVASCULAR: S1 and S2 muffled PULMONARY: diminished breath sounds bilaterally with no wheezing or rhonchi noted. ABDOMEN: soft. Nontender on exam. obese. non-distended, normoactive bowel sounds. No palpable organomegaly. MUSCULOSKELETAL: No joint swelling or deformity. EXTREMITIES: No cyanosis, clubbing, or pedal edema. left knee surgical site is dry and intact, pain pump noted NEUROLOGICAL: Gross neurological examination did not reveal any focal deficits. SKIN: No rashes. Assessment: Osteoarthritis status post left total knee arthroplasty Hypertension chest pain, ruled out acs per cardiology History of diastolic congestive heart failure History of chronic obstructive pulmonary disease Hyperlipidemia history of seizure disorder History of degenerative disc disease and has a back stimulator GI prophylaxis DVT prophylaxis Full code Plan: Recommend to continue with current medications and management per orthopedic services. Cardiology following as well as patient had an episode of chest pain. Troponins were mildly elevated and patient was initiated on heparin. Car diology recommending monitoring overnight and transitioning back to Xarelto on discharge. Patient denies any chest pain today and reports some discomfort with left total knee although feels much improved. Patient is working with physical therapy and currently sitting up in the chair. Encouraged incentive spirometer use at least 10 times every hour while awake. Recommend continue with breathing inhalational treatments and nebulize treatments as needed and pain management per orthopedic services. Thank you for this consultation and we will continue to follow with orthopedic surgery during hospitalization. The impression and plan of care has been dictated by Adriana Penn, nurse practitioner as directed. MD Nahomi I have performed a history and examination and MDM of this patient, discussed the same with the dictator, and agree with the dictator's assessment and plan as written ,documented as a scribe. Based on total visit time, I have performed more than 50% of the visit. Any additional findings or plans will be noted. Objective - Vital Signs Vital signs: Vital Signs Temp 97.6 F 02/04/22 07:53 Pulse 80 02/04/22 07:53 Resp 17 02/04/22 07:53 BP 141/79 02/04/22 07:53 Pulse Ox 94 L 02/04/22 07:53 FiO2 Intake & Output 02/03/22 02/04/22 02/04/22 18:59 06:59 18:59 Intake Total 354 Balance 354 Intake: Oral 354 Other: Voiding Method Toilet Toilet Urinal # Voids 1 - Labs CBC & Chem 7: 02/04/22 05:58 02/04/22 05:58 Labs: Abnormal Lab Results - Last 24 Hours (Table) 02/03/22 02/03/22 02/03/22 Range/Units 08:49 11:34 11:34 RBC 3.70 L (4.30-5.90) m/uL Hgb 11.7 L (13.0-17.5) gm/dL Hct 36.4 L (39.0-53.0) % APTT (22.0-30.0) sec Sodium (137-145) mmol/L Glucose (74-99) mg/dL Troponin I 0.246 H* 0.200 H* (0.000-0.034) ng/mL Total Protein (6.3-8.2) g/dL Albumin (3.5-5.0) g/dL 02/03/22 02/03/22 02/03/22 Range/Units 11:34 14:44 17:55 RBC (4.30-5.90) m/uL Hgb (13.0-17.5) gm/dL Hct (39.0-53.0) % APTT 50.0 H (22.0-30.0) sec Sodium (137-145) mmol/L Glucose 102 H (74-99) mg/dL Troponin I 0.192 H* (0.000-0.034) ng/mL Total Protein (6.3-8.2) g/dL Albumin (3.5-5.0) g/dL 02/04/22 02/04/22 Range/Units 05:58 05:58 RBC 3.72 L (4.30-5.90) m/uL Hgb 11.5 L (13.0-17.5) gm/dL Hct 36.5 L (39.0-53.0) % APTT (22.0-30.0) sec Sodium 135 L (137-145) mmol/L Glucose (74-99) mg/dL Troponin I (0.000-0.034) ng/mL Total Protein 5.7 L (6.3-8.2) g/dL Albumin 3.3 L (3.5-5.0) g/dL
[2022-02-04] MEDS ORDERED: ONDANSETRON 4 MG/2 ML VIAL IVP PRN (20:17)
[2022-02-04] MEDS: PANTOPRAZOLE 40 MG TABLET PO SCH (21:10)
[2022-02-04] MEDS: ATORVASTATIN 80 MG TAB PO SCH (21:10)
[2022-02-04] MEDS: SENNOSIDES-DOCUSATE SODIUM 1 EACH TAB PO SCH (21:10)
[2022-02-05 03:37] LABS: Glucose,Whole Blood 96 mg/dL (70-110)
[2022-02-05] MEDS: HYDROmorphone 0.5 MG/0.5 ML SYRINGE IVP PRN (05:54)
[2022-02-05] MEDS: LEVOTHYROXINE 50 MCG TAB PO SCH (05:54)
[2022-02-05] MEDS: LACTATED RINGERS 1,000 ML IV SCH (06:40)
--- NOTE | 2022-02-05 08:19 | P.PN ---
Subjective Progress Note Date: 02/05/22 Principal diagnosis: Status post left total knee arthroplasty Patient is evaluated today at bedside, he is on the cardiac stepdown unit. Patient states that he is feeling better. He is having no acute chest pain at this time. He denies any acute shortness of breath. Does note some discomfort throughout the knee, mainly with ambulation. He is being followed by both cardiology and internal medicine. Objective - Vital Signs Vital signs: Vital Signs Temp 97.6 F 02/05/22 04:00 Pulse 76 02/05/22 04:00 Resp 15 02/04/22 23:49 BP 117/64 02/05/22 04:00 Pulse Ox 92 L 02/05/22 04:00 FiO2 Intake & Output 02/04/22 02/05/22 02/05/22 18:59 06:59 18:59 Intake Total 1244.167 98.8 Balance 1244.167 98.8 Intake: Intake, IV Titration 300.167 98.8 Amount Heparin Sod,Pork in 0.45% 300.167 98.8 NaCl 25,000 unit In 0.45 % NaCl 1 250ml.bag @ 11. 862 UNITS/KG/HR 10 mls/hr IV .Q24H [facility] Rx#: [id number] Oral 944 Other: Voiding Method Toilet Toilet Urinal # Voids 2 1 - Exam Left lower extremity: Incision is clean, dry, and intact. The exofin fusion tape is in good condition. There is minimal soft tissue swelling and ecchymosis surrounding the medial and lateral aspects of the incision. Calf is soft, no tenderness with palpation. Plantar flexion, dorsiflexion, EHL, FHL are intact. Sensory exam to light touch throughout the extremity is intact, dorsal pedis pulses 2+. - Labs CBC & Chem 7: 02/04/22 05:58 02/04/22 05:58 Labs: Abnormal Lab Results - Last 24 Hours (Table) 02/04/22 02/05/22 Range/Units 17:24 00:46 APTT 35.8 H 40.2 H (22.0-30.0) sec Assessment and Plan Assessment: Postoperative day #4 status post left total knee arthroplasty Chest pain Non-STEMI Plan: Pain control, plan for discharge on [place] 10 mg/325 mg 1 tab every 4 hours as needed DVT prophylaxis, Eliquis 2.5mg bid at discharge Wound care, continue light dressing over the exofin tape Discussed with nursing to remove On-Q pain catheter prior to discharge today Ice and elevate the extremity Encourage incentive spirometer Home health care after discharge Medical recommendations Cardiac recommendations Discharge planning: Plan for discharge home today Time with Patient: Less than 30
[2022-02-05] MEDS: ISOSORBIDE MONONITRATE ER 60 MG TAB.ER.24H PO SCH (08:24)
[2022-02-05] MEDS: CYCLOBENZAPRINE 5 MG TAB PO SCH ×3 (08:24→17:19)
[2022-02-05] MEDS: LORATADINE 10 MG TAB PO SCH (08:24)
[2022-02-05] MEDS: METOPROLOL TARTRATE 25 MG TAB PO SCH ×3 (08:24→21:15)
[2022-02-05] MEDS: ASPIRIN 81 MG PO SCH (08:24)
[2022-02-05] MEDS: EZETIMIBE 10 MG TAB PO SCH (08:24)
[2022-02-05] MEDS: HEPARIN SOD,PORK IN 0.45% NACL 25,000 UNIT in 0.45% NACL 1 250ML.BAG IV SCH (08:25)
[2022-02-05] MEDS: TAMSULOSIN 0.4 MG CAP.ER.24H PO SCH ×2 (08:25→21:15)
[2022-02-05] MEDS: COLCHICINE 0.6 MG EACH PO SCH (08:25)
[2022-02-05] MEDS: PREGABALIN 75 MG CAP PO SCH ×2 (08:25→21:14)
[2022-02-05 09:03] LABS: Basophils % (A) 1 %; Eosinophils # (A) 0.3 k/uL (0-0.7); Eosinophils % (A) 5 %; HCT 36.8 % (39.0-53.0); HGB 12.1 gm/dL (13.0-17.5); Lymphocytes # (A) 1.6 k/uL (1.0-4.8); Lymphocytes % (A) 27 %; MCH 32.4 pg (25.0-35.0); MCV 98.2 fL (80.0-100.0); Mean Platelet Volume 7.7; Monocytes # (A) 0.4 k/uL (0-1.0); Monocytes % (A) 6 %; Neutrophils # (A) 3.5 k/uL (1.3-7.7); Neutrophils % (A) 60 %; Platelet Count 254 k/uL (150-450); RBC 3.75 m/uL (4.30-5.90); RDW 13.4 % (11.5-15.5); WBC 5.9 k/uL (3.8-10.6)
--- NOTE | 2022-02-05 11:57 | XR ---
EXAMINATION TYPE: XR chest 1V portable DATE OF EXAM: 02/05/2022 COMPARISON: 10/18/2021 INDICATION: Short of breath TECHNIQUE: Single frontal view of the chest is obtained. FINDINGS: The heart size is normal. The pulmonary vasculature is normal. There is a right infrahilar infiltrate. Correlate for atelectasis or pneumonia. Some blunting of the right costophrenic angle is present. Stimulator leads are evident within the thoracic region IMPRESSION: 1. Right infrahilar infiltrate with blunting of the costophrenic angle. Correlate for atelectasis and pneumonia. Follow-up is recommended.
[2022-02-05] MEDS: HYDROcodone/APAP 10-325MG 1 EACH TAB PO PRN ×3 (12:55→21:15)
--- NOTE | 2022-02-05 14:56 | CT ---
EXAMINATION TYPE: CT chest angio for PE DATE OF EXAM: 02/05/2022 COMPARISON: None HISTORY: elevated d-dimer CT DLP: 575.5 mGycm Automated exposure control for dose reduction was used. CONTRAST: Performed with IV Contrast, patient injected with 100 mL of Isovue 370. Images obtained from the thoracic inlet through the diaphragm with the IV contrast. There are Three-D postprocessed images. There is some masslike consolidation in the anterior right middle lobe. This measures 3.[address] Heart size is normal. No pericardial effusion. There is mild pleural thickening right posterior lung base. No mediastinal adenopathy. There are no hilar masses. There is normal contrast opacification of the p ulmonary arteries. No filling defect. Thoracic spine is intact. Sternum is intact. The upper abdominal soft tissues are intact. IMPRESSION: No evidence of pulmonary embolism. There is some changing pattern of right middle lobe consolidation compared to old exam. Follow-up is recommended to show long-term stability or clearing. There is pleu ral and pulmonary scarring in the right upper lobe without change.
--- NOTE | 2022-02-05 16:02 | P.PN ---
Subjective This is a 71-year-old male with a past medical history significant for artery disease with previous stenting, hyperlipidemia, and hypothyroidism. Patient follows in the office with Dr. Bolivar. We have been asked to see the patient in consultation for elevated troponin. Patient examined at the bedside. Patient underwent left total knee arthroplasty on 02/01/[address] Stallworth. This morning, the patient developed chest pain. The pain was in the middle of his chest and under his left breast. He denied any radiation of the pain. He received a nitro sublingual with relief of his chest pain. EKG performed at that time did not reveal any evidence of ischemia. However a troponin was completed that came back abnormal at 0.246. He currently denies any further chest pain or pressure. Vital signs were stable and patient was transferred to for further monitoring. 02/04/2022: Patient seen and examined at bedside, no acute distress. Denies any chest pain or shortness of breath. Repeat EKG revealed no acute changes. Troponins 0.24, 0.20, 0.19. Echocardiogram revealed EF of 5055 %, no significant wall motion ab normality abnormalities. No pericardial effusion. Meds: IV heparin drip, aspirin 81 mg daily, atorvastatin 80 mg nightly, Zetia, Imdur 60 mg daily, metoprolol titrate 25 mg 3 times a day 02/05 Patient seen and examined. Patient denies any further chest pain or pressure. He does have mild dyspnea. Echo which showed EF 50-55%. No significant orthopnea. D-dimer was elevated and therefore CTA was performed which showed no PE however possible new infiltrate. Denies any cough. He has been on Eliquis 2.5mg bid at home however unsure why. No documentation of any atrial fibrillation. PHYSICAL EXAM: VITAL SIGNS: Reviewed. GENERAL: Well-developed in no acute distress. HEENT: Neck supple. No JVD LUNGS: Respirations even and unlabored. Lungs essentially clear to auscultation bilaterally. HEART: Regular rate and rhythm. S1 and S2 heard. ABDOMEN: Soft. Nondistended. Nontender. EXTREMITIES: Normal range of motion. No clubbing or cyanosis. Peripheral pulses intact. No lower extremity edema NEUROLOGIC: Awake and alert. Oriented x 3. ASSESSMENT: Osteoarthritis, status post left total knee arthroplasty Elevated troponin with concern for NSTEMI after total knee arthroplasty Coronary artery disease with previous stenting to the diagonal branch of left circumflex Chronically occluded RCA Hyperlipidemia Hypothyroidism PLAN: Patient without any further angina-type symptoms. Continue treatment medically. Continue beta rudi and has received IV heparin without any further issues and we will transition to his home Eliquis 2.5 mg twice a day. Possible infiltrate on CTA however no significant cough. Defer treatment to primary team. Appears stable for discharge home from a cardiac standpoint. Objective - Vital Signs Vital signs: Vital Signs Temp 98.1 F 02/05/22 15:23 Pulse 72 02/05/22 15:23 Resp 18 02/05/22 15:23 BP 94/56 02/05/22 15:23 Pulse Ox 90 L 02/05/22 15:23 FiO2 Intake & Output 02/04/22 02/05/22 02/05/22 18:59 06:59 18:59 Intake Total 1244.167 98.8 82.32 Balance 1244.167 98.8 82.32 Intake: Intake, IV Titration 300.167 98.8 82.32 Amount Heparin Sod,Pork in 0.45% 300.167 98.8 82.32 NaCl 25,000 unit In 0.45 % NaCl 1 250ml.bag @ 11. 862 UNITS/KG/HR 10 mls/hr IV .Q24H [facility] Rx#: [id number] Oral 944 Other: Voiding Method Toilet Toilet Toilet Urinal # Voids 2 1 - Labs CBC & Chem 7: 02/05/22 08:44 02/04/22 05:58 Labs: Abnormal Lab Results - Last 24 Hours (Table) 02/04/22 02/05/22 02/05/22 Range/Units 17:24 00:46 08:44 RBC 3.75 L (4.30-5.90) m/uL Hgb 12.1 L (13.0-17.5) gm/dL Hct 36.8 L (39.0-53.0) % APTT 35.8 H 40.2 H (22.0-30.0) sec D-Dimer (<0.60) mg/L FEU 02/05/22 02/05/22 Range/Units 08:44 12:57 RBC (4.30-5.90) m/uL Hgb (13.0-17.5) gm/dL Hct (39.0-53.0) % APTT 61.3 H (22.0-30.0) sec D-Dimer 1.69 H (<0.60) mg/L FEU
--- NOTE | 2022-02-05 16:13 | P.PN ---
Subjective Progress Note Date: 02/05/22 Matthieu Thomas, he is a 71-year-old male well-known to Dr. Franks was admitted to [facility] by Dr. Stallworth, and underwent left total knee arthroplasty on 02/01/2022 consultation was requested for medical management while hospitalized. Patient has a known history of hypertension, hyperlipidemia, degenerative osteoarthritis, degenerative disc disease, history of diastolic congestive heart failure, history of chronic obstructive pulmonary disease, and history of seizure disorder. On review of systems patient was seen and examined on 02/02/2022 he is alert and oriented 3 in no apparent distress there is no fever or chills no headache or dizziness no chest pain no shortness of breath no cough no nausea or vomiting no abdominal pain no diarrhea no blood in the stools no burning with urination no frequency or urgency and no hematuria. There is no weakness or numbness in any of the extremities there is no change in vision speech or gait. On 02/03/2022 patient was seen and examined on the medical floor he is alert and oriented 3 in no apparent distress he had an episode of chest pain this morning he was given sublingual nitroglycerin and his chest pain resolved, EKG was done and did not reveal significant abnormality, troponin level was done and was elevated at 2.46 otherwise patient denies any complaints at this time there is no fever or chills no headache or dizziness no chest pain no shortness of breath no cough no nausea or vomiting no abdominal pain no diarrhea and no urinary symptoms. Cardiology consultation was requested due to episode of chest pain and elevated troponin they are recommending transferring patient to telemetry floor and starting IV heparin 02/04/2022 This is a male who was admitted under orthopedic services for left total knee arthoplasty and had an episode of chest pain. Patient has been evaluated by cardiology who recommend monitoring closely overnight for any further events and to continue telemetry monitoring along with IV heparin. Troponins were elevated and cardiology recommend outpatient follow up. Patient will transition back to xarelto on discharge. Patient reports no further chest pain and denies shortness of breath. Patient is afebrile. Patient has been up and working with physical therapy. Patient reports being sent home tomorrow. 02/05/2022 Patient is seen today and was having some low oxygen readings on room air and placed on 2L and went up to 94%. Will order chest xray. Cardiology following and patient reports to being chest pain free and does have mild shortness of breath. Encouraged incentive spirometer use at least 10 times every hours while awake. Patient takes albuterol ventolized treatments and will also provide an alb inhaler. Recommend follow up with primary care provider on discharge this week. Patient left knee is stable and orthopedics planning on discharge once cleared by cardiology. Will order d dimer and if positive will obtain CTA. Encourage elevating the left lower extremity. Patient is afebrile. Patient tolerating diet today with no reports of any further nausea or vomiting noted. Encouraged heart healthy small meals. Review of systems: Constitutional: No reports of fatigue, fever, or chills Cardiovascular: No reports of chest pain or palpitations Respiratory: reports of mild shortness of breath occasional cough GI: no reports of nausea, no reports of of vomiting, patient reports passing gas : No reports of dysuria or retention Neurovascular: no reports of generalized weakness,reports some mild left knee pain All medications have been reviewed Active Medications Hydrocodone Bitart/Acetaminophen (Hydrocodone/Apap 5-325mg 1 Each Tab) 1 each PO Q4HR PRN PRN Reason: Pain Scale 1 to 5 Stop: 03/03/22 14:34 Last Admin: 02/05/22 08:25 Dose: 1 each Hydrocodone Bitart/Acetaminophen (Hydrocodone/Apap 10-325mg 1 Each Tab) 1 each PO Q4H PRN PRN Reason: Pain Scale 6 to 10 Stop: 03/03/22 14:34 Last Admin: 02/04/22 17:46 Dose: 1 each Albuterol Sulfate (Albuterol Nebulized 2.5 Mg/3 Ml) 2.5 mg INHALATION RT-Q6H PRN PRN Reason: Shortness Of Breath Aspirin (Aspirin 81 Mg) 81 mg PO DAILY [facility] Last Admin: 02/05/22 08:24 Dose: 81 mg Atorvastatin Calcium (Atorvastatin 80 Mg Tab) 80 mg PO HS [facility] Last Admin: 02/04/22 21:10 Dose: 80 mg Colchicine (Colchicine 0.6 Mg Each) 0.6 mg PO DAILY [facility] Last Admin: 02/05/22 08:25 Dose: 0.6 mg Ropivacaine 1,090 mg/ Bandage/ (Support Products 1 each) 0 mg MISCELLANE Q2H PRN PRN Reason: Breakthrough Pain Stop: 03/03/22 15:03 Last Admin: 02/01/22 16:00 Dose: 1,090 mg Cyclobenzaprine HCl (Cyclobenzaprine 5 Mg Tab) 7.5 mg PO TID BETWEEN MEALS [facility] Last Admin: 02/05/22 08:24 Dose: 7.5 mg Ezetimibe (Ezetimibe 10 Mg Tab) 10 mg PO DAILY [facility] Last Admin: 02/05/22 08:24 Dose: 10 mg Heparin Sodium (Porcine) (Heparin Sodium 1,000 Un/Ml (10ml Vl)) 0 unit IV PER PROTOCOL PRN; Protocol PRN Reason: Low PTT Last Admin: 02/05/22 02:30 Dose: 2,100 unit Hydromorphone HCl (Hydromorphone 0.5 Mg/0.5 Ml Syringe) 0.5 mg IVP Q3HR PRN PRN Reason: Pain Scale 7 to 10 Stop: 03/03/22 14:34 Last Admin: 02/05/22 05:54 Dose: 0.5 mg Hydromorphone HCl (Hydromorphone 0.5 Mg/0.5 Ml Syringe) 0.25 mg IVP Q3HR PRN PRN Reason: Pain Scale 4 to 6 Stop: 03/03/22 14:34 Hydroxyzine Pamoate (Hydroxyzine Pamoate 25 Mg Cap) 25 mg PO Q6HR PRN PRN Reason: Itching Last Admin: 02/02/22 20:21 Dose: 25 mg Lactated Ringer's (Lactated Ringers) 1,000 mls @ 20 mls/hr IV .Q24H [facility] Stop: 03/03/22 06:08 Last Admin: 02/05/22 06:40 Dose: Not Given Heparin Sodium/Sodium Chloride (25,000 unit/ Sodium Chloride) 250 mls @ 10 mls/hr IV .Q24H [facility]; Protocol Last Admin: 02/05/22 08:25 Dose: 16.23 units/kg/hr, 13.682 mls/hr Isosorbide Mononitrate (Isosorbide Mononitrate Er 60 Mg Tab.Er.24h) 60 mg PO QAM [facility] Last Admin: 02/05/22 08:24 Dose: 60 mg Levothyroxine Sodium (Levothyroxine 50 Mcg Tab) 50 mcg PO DAILY@0630 [facility] Last Admin: 02/05/22 05:54 Dose: 50 mcg Lidocaine HCl (Lidocaine 1% (10mg/Ml) For Iv Start) 0.1 ml INTRADERMA PER PROTOCOL PRN PRN Reason: IV Start Stop: 03/03/22 06:08 Loratadine (Loratadine 10 Mg Tab) 10 mg PO DAILY [facility] Last Admin: 02/05/22 08:24 Dose: 10 mg Metoprolol Tartrate (Metoprolol Tartrate 25 Mg Tab) 25 mg PO TID [facility] Last Admin: 02/05/22 08:24 Dose: 25 mg Naloxone HCl (Naloxone 0.4 Mg/Ml 1 Ml Vial) 0.2 mg IV Q2M PRN PRN Reason: Opioid Reversal Stop: 03/03/22 14:34 Nitroglycerin (Nitroglycerin Sl Tabs 0.4 Mg Tab) 0.4 mg SUBLINGUAL Q5M PRN PRN Reason: Chest Pain Last Admin: 02/03/22 07:49 Dose: 0.4 mg Ondansetron HCl (Ondansetron 4 Mg/2 Ml Vial) 4 mg IVP Q6HR PRN PRN Reason: Nausea And Vomiting Last Admin: 02/04/22 21:09 Dose: 4 mg Pantoprazole Sodium (Pantoprazole 40 Mg Tablet) 40 mg PO HS [facility] Last Admin: 02/04/22 21:10 Dose: 40 mg Pregabalin (Pregabalin 75 Mg Cap) 150 mg PO BID [facility] Last Admin: 02/05/22 08:25 Dose: 150 mg Senna/Docusate Sodium (Sennosides-Docusate Sodium 1 Each Tab) 2 each PO HS [facility] Stop: 03/03/22 21:01 Last Admin: 02/04/22 21:10 Dose: 2 each Tamsulosin HCl (Tamsulosin 0.4 Mg Cap.Er.24h) 0.4 mg PO BID [facility] Last Admin: 02/05/22 08:25 Dose: 0.4 mg PHYSICAL EXAMINATION: GENERAL: The patient is alert and oriented x4, Well developed, well nourished. HEENT: Pupils are round and equally reacting to light. EOMI. no scleral icterus. No conjunctival pallor. Normocephalic, atraumatic. No pharyngeal erythema. No thyromegaly. CARDIOVASCULAR: S1 and S2 muffled PULMONARY: diminished breath sounds bilaterally with some scattered rhonchi noted. ABDOMEN: soft. Nontender on exam. obese. non-distended, normoactive bowel sounds. No palpable organomegaly. MUSCULOSKELETAL: No joint swelling or deformity. EXTREMITIES: No cyanosis, clubbing, or pedal edema. left knee surgical site is dry and intact, some lower extremity edema noted. NEUROLOGICAL: Gross neurological examination did not reveal any focal deficits. SKIN: No rashes. Assessment: Osteoarthritis status post left total knee arthroplasty Hypertension elevated d dimer chest pain, ruled out acs per cardiology History of diastolic congestive heart failure History of chronic obstructive pulmonary disease Hyperlipidemia history of seizure disorder History of degenerative disc disease and has a back stimulator GI prophylaxis DVT prophylaxis Full code Plan: Recommend to continue with current medications and management per orthopedic services. Cardiology following as well as patient had an episode of chest pain. Troponins were mildly elevated and patient was initiated on heparin and will transition to Eliquis on discharge once cleared by cardiology. Patient 02 readings on the lower side today and ordered a chest xray that showed some atelectasis and recommend to continue with albuterol inhaler and continued incentive spirometer use. Will order d dimer and if elevated will obtain a CTA of the chest to assess for PE> Patient denies any chest pain although some mild shortness of breath. Patient has been working with physical therapy. Encouraged incentive spirometer use at least 10 times every hour while awake at home as well and follow up with pcp on discharge. Thank you for this consultation and we will continue to follow with orthopedic surgery during hospitalization. The impression and plan of care has been dictated as a scribe by Adriana Penn, nurse practitioner as directed. MD Nahomi I have performed a history and examination and MDM of this patient, discussed the same with the dictator and has been documented as a scribe. Based on total visit time, I have performed more than 50% of the visit. Objective - Vital Signs Vital signs: Vital Signs Temp 97.9 F 02/05/22 08:15 Pulse 82 02/05/22 08:15 Resp 18 02/05/22 08:15 BP 127/70 02/05/22 08:15 Pulse Ox 90 L 02/05/22 08:15 FiO2 Intake & Output 02/04/22 02/05/22 02/05/22 18:59 06:59 18:59 Intake Total 1244.167 98.8 82.32 Balance 1244.167 98.8 82.32 Intake: Intake, IV Titration 300.167 98.8 82.32 Amount Heparin Sod,Pork in 0.45% 300.167 98.8 82.32 NaCl 25,000 unit In 0.45 % NaCl 1 250ml.bag @ 11. 862 UNITS/KG/HR 10 mls/hr IV .Q24H [facility] Rx#: [id number] Oral 944 Other: Voiding Method Toilet Toilet Toilet Urinal # Voids 2 1 - Labs CBC & Chem 7: 02/05/22 08:44 02/04/22 05:58 Labs: Abnormal Lab Results - Last 24 Hours (Table) 02/04/22 02/05/22 02/05/22 Range/Units 17:24 00:46 08:44 RBC 3.75 L (4.30-5.90) m/uL Hgb 12.1 L (13.0-17.5) gm/dL Hct 36.8 L (39.0-53.0) % APTT 35.8 H 40.2 H (22.0-30.0) sec 02/05/22 Range/Units 08:44 RBC (4.30-5.90) m/uL Hgb (13.0-17.5) gm/dL Hct (39.0-53.0) % APTT 61.3 H (22.0-30.0) sec
[2022-02-05] MEDS: APIXABAN 2.5 MG TABLET PO SCH (21:15)
[2022-02-05] MEDS: SENNOSIDES-DOCUSATE SODIUM 1 EACH TAB PO SCH (21:15)
[2022-02-05] MEDS: ATORVASTATIN 80 MG TAB PO SCH (21:15)
[2022-02-05] MEDS: PANTOPRAZOLE 40 MG TABLET PO SCH (21:15)
[2022-02-06] MEDS: HYDROcodone/APAP 10-325MG 1 EACH TAB PO PRN ×4 (03:38→22:32)
[2022-02-06] MEDS: LACTATED RINGERS 1,000 ML IV SCH (03:38)
[2022-02-06] MEDS: LEVOTHYROXINE 50 MCG TAB PO SCH (06:29)
--- NOTE | 2022-02-06 07:18 | XR ---
EXAMINATION TYPE: XR chest 1V portable DATE OF EXAM: 02/06/2022 COMPARISON: 02/05/2022 HISTORY: Her breath TECHNIQUE: Single view FINDINGS: There is some mild infiltrate in the right lower lobe. Left lung is clear. There is mild bl unting right costophrenic angle. No heart failure. There is left shoulder prosthesis. IMPRESSION: Mild right lower lobe infiltrate without change. No heart failure.
[2022-02-06 07:40] LABS: Basophils % (A) 0 %; Eosinophils # (A) 0.3 k/uL (0-0.7); Eosinophils % (A) 6 %; HCT 35.6 % (39.0-53.0); HGB 11.8 gm/dL (13.0-17.5); Lymphocytes # (A) 1.4 k/uL (1.0-4.8); Lymphocytes % (A) 27 %; MCH 32.9 pg (25.0-35.0); MCHC 33.2 g/dL (31.0-37.0); Mean Platelet Volume 7.6; Monocytes # (A) 0.4 k/uL (0-1.0); Monocytes % (A) 7 %; Neutrophils # (A) 3.1 k/uL (1.3-7.7); Neutrophils % (A) 59 %; Platelet Count 261 k/uL (150-450); RDW 13.6 % (11.5-15.5); WBC 5.3 k/uL (3.8-10.6)
[2022-02-06 08:05] LABS: Calcium 9.1 mg/dL (8.4-10.2); Potassium 4.2 mmol/L (3.5-5.1)
[2022-02-06] MEDS: ISOSORBIDE MONONITRATE ER 60 MG TAB.ER.24H PO SCH (08:39)
[2022-02-06] MEDS: CYCLOBENZAPRINE 5 MG TAB PO SCH ×3 (08:39→17:27)
[2022-02-06] MEDS: TAMSULOSIN 0.4 MG CAP.ER.24H PO SCH ×2 (08:39→20:52)
[2022-02-06] MEDS: EZETIMIBE 10 MG TAB PO SCH (08:39)
[2022-02-06] MEDS: ASPIRIN 81 MG PO SCH (08:39)
[2022-02-06] MEDS: APIXABAN 2.5 MG TABLET PO SCH ×2 (08:39→20:52)
[2022-02-06] MEDS: COLCHICINE 0.6 MG EACH PO SCH (08:39)
[2022-02-06] MEDS: METOPROLOL TARTRATE 25 MG TAB PO SCH ×3 (08:39→22:33)
[2022-02-06] MEDS: LORATADINE 10 MG TAB PO SCH (08:39)
[2022-02-06] MEDS: PREGABALIN 75 MG CAP PO SCH ×2 (08:40→20:52)
[2022-02-06] MEDS: HEPARIN SOD,PORK IN 0.45% NACL 25,000 UNIT in 0.45% NACL 1 250ML.BAG IV SCH (08:44)
[2022-02-06] MEDS ORDERED: IPRATROPIUM-ALBUTEROL 3 ML NEB INHALATION PRN (12:27)
[2022-02-06] MEDS: IPRATROPIUM-ALBUTEROL 3 ML NEB INHALATION SCH ×2 (14:10→19:44)
[2022-02-06] MEDS: ATORVASTATIN 80 MG TAB PO SCH (20:52)
[2022-02-06] MEDS: PANTOPRAZOLE 40 MG TABLET PO SCH (20:52)
[2022-02-06] MEDS: SENNOSIDES-DOCUSATE SODIUM 1 EACH TAB PO SCH (20:53)
--- NOTE | 2022-02-07 01:22 | P.PN ---
Subjective Progress Note Date: 02/06/22 Matthieu Thomas, he is a 71-year-old male well-known to Dr. Franks was admitted to [facility] by Dr. Stallworth, and underwent left total knee arthroplasty on 02/01/2022 consultation was requested for medical management while hospitalized. Patient has a known history of hypertension, hyperlipidemia, degenerative osteoarthritis, degenerative disc disease, history of diastolic congestive heart failure, history of chronic obstructive pulmonary disease, and history of seizure disorder. On review of systems patient was seen and examined on 02/02/2022 he is alert and oriented 3 in no apparent distress there is no fever or chills no headache or dizziness no chest pain no shortness of breath no cough no nausea or vomiting no abdominal pain no diarrhea no blood in the stools no burning with urination no frequency or urgency and no hematuria. There is no weakness or numbness in any of the extremities there is no change in vision speech or gait. On 02/03/2022 patient was seen and examined on the medical floor he is alert and oriented 3 in no apparent distress he had an episode of chest pain this morning he was given sublingual nitroglycerin and his chest pain resolved, EKG was done and did not reveal significant abnormality, troponin level was done and was elevated at 2.46 otherwise patient denies any complaints at this time there is no fever or chills no headache or dizziness no chest pain no shortness of breath no cough no nausea or vomiting no abdominal pain no diarrhea and no urinary symptoms. Cardiology consultation was requested due to episode of chest pain and elevated troponin they are recommending transferring patient to telemetry floor and starting IV heparin 02/04/2022 This is a male who was admitted under orthopedic services for left total knee arthoplasty and had an episode of chest pain. Patient has been evaluated by cardiology who recommend monitoring closely overnight for any further events and to continue telemetry monitoring along with IV heparin. Troponins were elevated and cardiology recommend outpatient follow up. Patient will transition back to xarelto on discharge. Patient reports no further chest pain and denies shortness of breath. Patient is afebrile. Patient has been up and working with physical therapy. Patient reports being sent home tomorrow. 02/05/2022 Patient is seen today and was having some low oxygen readings on room air and placed on 2L and went up to 94%. Will order chest xray. Cardiology following and patient reports to being chest pain free and does have mild shortness of breath. Encouraged incentive spirometer use at least 10 times every hours while awake. Patient takes albuterol ventolized treatments and will also provide an alb inhaler. Recommend follow up with primary care provider on discharge this week. Patient left knee is stable and orthopedics planning on discharge once cleared by cardiology. Will order d dimer and if positive will obtain CTA. Encourage elevating the left lower extremity. Patient is afebrile. Patient tolerating diet today with no reports of any further nausea or vomiting noted. Encouraged heart healthy small meals. 02/06/2022 Patient is evaluated today and has some mild shortness of breath and chest xray was ordered and showing some right lower lobe infiltrate. Patient is on 2 Liters occasionally and also above 90% on room air. Patient does have a history and will add duoneb treatments. Cardiology and orthopedics following as well as patient is status post left knee arthroplasty. Patient is afebrile and labs within normal limits. Patient denies chest pain or palpitations. Patient is tolerating dietn with no reports of nausea or vomiting noted. Review of systems: Constitutional: No reports of fatigue, fever, or chills Cardiovascular: No reports of chest pain or palpitations Respiratory: reports of mild shortness of breath although improved from yesterday, occasional cough GI: no reports of nausea, no reports of of vomiting : No reports of dysuria or retention Neurovascular: no reports of generalized weakness, reports some mild left knee pain All medications have been reviewed Active Medications Hydrocodone Bitart/Acetaminophen (Hydrocodone/Apap 5-325mg 1 Each Tab) 1 each PO Q4HR PRN PRN Reason: Pain Scale 1 to 5 Stop: 03/03/22 14:34 Last Admin: 02/05/22 08:25 Dose: 1 each Hydrocodone Bitart/Acetaminophen (Hydrocodone/Apap 10-325mg 1 Each Tab) 1 each PO Q4H PRN PRN Reason: Pain Scale 6 to 10 Stop: 03/03/22 14:34 Last Admin: 02/06/22 22:32 Dose: 1 each Albuterol/Ipratropium (Ipratropium-Albuterol 3 Ml Neb) 3 ml INHALATION RT-TID PRN PRN Reason: Shortness Of Breath Or Wheezing Albuterol/Ipratropium (Ipratropium-Albuterol 3 Ml Neb) 3 ml INHALATION RT-TID [facility] Last Admin: 02/06/22 19:44 Dose: Not Given Apixaban (Apixaban 2.5 Mg Tablet) 2.5 mg PO BID [facility]; Protocol Last Admin: 02/06/22 20:52 Dose: 2.5 mg Aspirin (Aspirin 81 Mg) 81 mg PO DAILY [facility] Last Admin: 02/06/22 08:39 Dose: 81 mg Atorvastatin Calcium (Atorvastatin 80 Mg Tab) 80 mg PO HS [facility] Last Admin: 02/06/22 20:52 Dose: 80 mg Colchicine (Colchicine 0.6 Mg Each) 0.6 mg PO DAILY [facility] Last Admin: 02/06/22 08:39 Dose: 0.6 mg Ropivacaine 1,090 mg/ Bandage/ (Support Products 1 each) 0 mg MISCELLANE Q2H PRN PRN Reason: Breakthrough Pain Stop: 03/03/22 15:03 Last Admin: 02/01/22 16:00 Dose: 1,090 mg Cyclobenzaprine HCl (Cyclobenzaprine 5 Mg Tab) 7.5 mg PO TID BETWEEN MEALS [facility] Last Admin: 02/06/22 17:27 Dose: 7.5 mg Ezetimibe (Ezetimibe 10 Mg Tab) 10 mg PO DAILY [facility] Last Admin: 02/06/22 08:39 Dose: 10 mg Hydromorphone HCl (Hydromorphone 0.5 Mg/0.5 Ml Syringe) 0.5 mg IVP Q3HR PRN PRN Reason: Pain Scale 7 to 10 Stop: 03/03/22 14:34 Last Admin: 02/05/22 05:54 Dose: 0.5 mg Hydromorphone HCl (Hydromorphone 0.5 Mg/0.5 Ml Syringe) 0.25 mg IVP Q3HR PRN PRN Reason: Pain Scale 4 to 6 Stop: 03/03/22 14:34 Hydroxyzine Pamoate (Hydroxyzine Pamoate 25 Mg Cap) 25 mg PO Q6HR PRN PRN Reason: Itching Last Admin: 02/02/22 20:21 Dose: 25 mg Lactated Ringer's (Lactated Ringers) 1,000 mls @ 20 mls/hr IV .Q24H [facility] Stop: 03/03/22 06:08 Last Admin: 02/06/22 03:38 Dose: Not Given Isosorbide Mononitrate (Isosorbide Mononitrate Er 60 Mg Tab.Er.24h) 60 mg PO QAM [facility] Last Admin: 02/06/22 08:39 Dose: 60 mg Levothyroxine Sodium (Levothyroxine 50 Mcg Tab) 50 mcg PO DAILY@0630 [facility] Last Admin: 02/06/22 06:29 Dose: 50 mcg Lidocaine HCl (Lidocaine 1% (10mg/Ml) For Iv Start) 0.1 ml INTRADERMA PER PROTOCOL PRN PRN Reason: IV Start Stop: 03/03/22 06:08 Loratadine (Loratadine 10 Mg Tab) 10 mg PO DAILY [facility] Last Admin: 02/06/22 08:39 Dose: 10 mg Metoprolol Tartrate (Metoprolol Tartrate 25 Mg Tab) 25 mg PO TID [facility] Last Admin: 02/06/22 22:33 Dose: 25 mg Naloxone HCl (Naloxone 0.4 Mg/Ml 1 Ml Vial) 0.2 mg IV Q2M PRN PRN Reason: Opioid Reversal Stop: 03/03/22 14:34 Nitroglycerin (Nitroglycerin Sl Tabs 0.4 Mg Tab) 0.4 mg SUBLINGUAL Q5M PRN PRN Reason: Chest Pain Last Admin: 02/03/22 07:49 Dose: 0.4 mg Ondansetron HCl (Ondansetron 4 Mg/2 Ml Vial) 4 mg IVP Q6HR PRN PRN Reason: Nausea And Vomiting Last Admin: 02/04/22 21:09 Dose: 4 mg Pantoprazole Sodium (Pantoprazole 40 Mg Tablet) 40 mg PO HS [facility] Last Admin: 02/06/22 20:52 Dose: 40 mg Pregabalin (Pregabalin 75 Mg Cap) 150 mg PO BID [facility] Last Admin: 02/06/22 20:52 Dose: 150 mg Senna/Docusate Sodium (Sennosides-Docusate Sodium 1 Each Tab) 2 each PO HS [facility] Stop: 03/03/22 21:01 Last Admin: 02/06/22 20:53 Dose: 2 each Tamsulosin HCl (Tamsulosin 0.4 Mg Cap.Er.24h) 0.4 mg PO BID [facility] Last Admin: 02/06/22 20:52 Dose: 0.4 mg PHYSICAL EXAMINATION: GENERAL: The patient is alert and oriented x4, Well developed, well nourished. HEENT: Pupils are round and equally reacting to light. EOMI. no scleral icterus. No conjunctival pallor. Normocephalic, atraumatic. No pharyngeal erythema. No thyromegaly. CARDIOVASCULAR: S1 and S2 muffled PULMONARY: diminished breath sounds bilaterally with some scattered rhonchi noted. ABDOMEN: soft. Nontender on exam. obese. non-distended, normoactive bowel sounds. No palpable organomegaly. MUSCULOSKELETAL: No joint swelling or deformity. EXTREMITIES: No cyanosis, clubbing, or pedal edema. left knee surgical site is dry and intact, some lower extremity edema noted. NEUROLOGICAL: Gross neurological examination did not reveal any focal deficits. SKIN: No rashes. Assessment: Osteoarthritis status post left total knee arthroplasty Hypertension elevated d dimer, ruled out PE per CTA chest pain, ruled out acs per cardiology History of diastolic congestive heart failure History of chronic obstructive pulmonary disease Hyperlipidemia history of seizure disorder History of degenerative disc disease and has a back stimulator GI prophylaxis DVT prophylaxis Full code Plan: Recommend to continue with current medications and management per orthopedic services. Cardiology was following as well as patient had an episode of chest pain. Troponins were mildly elevated and patient was initiated on heparin and since has been transitioned to Eliquis . Encouraged continued incentive spirometer use. d dimer was elevated and CTA of the chest was negative for PE. Patient denies any chest pain although some mild shortness of breath on occasion. Will add duonebs. Patient has been up and walking. Encouraged incentive spirometer use at least 10 times every hour while awake at home as well and follow up with pcp on discharge. Encouraged the patient to elevate left lower extremity while at rest. Thank you for this consultation and we will continue to follow with orthopedic surgery during hospitalization. The impression and plan of care has been dictated as a scribe by Adriana Penn, nurse practitioner as directed. MD Nahomi I have performed a history and examination and MDM of this patient, discussed the same with the dictator and has been documented as a scribe. Based on total visit time, I have performed more than 50% of the visit. Objective - Vital Signs Vital signs: Vital Signs Temp 98.0 F 02/06/22 03:34 Pulse 71 02/06/22 03:34 Resp 18 02/06/22 03:34 BP 107/65 02/06/22 03:34 Pulse Ox 94 L 02/06/22 03:34 FiO2 Intake & Output 02/05/22 02/05/22 02/06/22 06:59 18:59 06:59 Intake Total 98.8 82.32 188.128 Balance 98.8 82.32 188.128 Intake: Intake, IV Titration 98.8 82.32 188.128 Amount Heparin Sod,Pork in 0.45% 98.8 82.32 188.128 NaCl 25,000 unit In 0.45 % NaCl 1 250ml.bag @ 11. 862 UNITS/KG/HR 10 mls/hr IV .Q24H [facility] Rx#: [id number] Other: Voiding Method Toilet Toilet # Voids 1 - Labs CBC & Chem 7: 02/06/22 07:14 02/06/22 07:14 Labs: Abnormal Lab Results - Last 24 Hours (Table) 02/05/22 02/05/22 02/05/22 Range/Units 08:44 08:44 12:57 RBC 3.75 L (4.30-5.90) m/uL Hgb 12.1 L (13.0-17.5) gm/dL Hct 36.8 L (39.0-53.0) % APTT 61.3 H (22.0-30.0) sec D-Dimer 1.69 H (<0.60) mg/L FEU
[2022-02-07 01:48] VITALS: TEMP 97.8
[2022-02-07] MEDS: LEVOTHYROXINE 50 MCG TAB PO SCH (06:34)
[2022-02-07] MEDS: LACTATED RINGERS 1,000 ML IV SCH (07:22)
[2022-02-07 07:43] LABS: Basophils % (A) 0 %; Eosinophils # (A) 0.3 k/uL (0-0.7); Eosinophils % (A) 5 %; HCT 39.1 % (39.0-53.0); HGB 12.6 gm/dL (13.0-17.5); Lymphocytes # (A) 1.5 k/uL (1.0-4.8); Lymphocytes % (A) 23 %; MCHC 32.3 g/dL (31.0-37.0); Mean Platelet Volume 7.5; Monocytes # (A) 0.4 k/uL (0-1.0); Monocytes % (A) 6 %; Neutrophils % (A) 62 %; Platelet Count 288 k/uL (150-450); RBC 3.95 m/uL (4.30-5.90); RDW 13.5 % (11.5-15.5); WBC 6.5 k/uL (3.8-10.6)
[2022-02-07] MEDS: COLCHICINE 0.6 MG EACH PO SCH (07:52)
[2022-02-07] MEDS: EZETIMIBE 10 MG TAB PO SCH (07:52)
[2022-02-07] MEDS: ISOSORBIDE MONONITRATE ER 60 MG TAB.ER.24H PO SCH (07:53)
[2022-02-07] MEDS: ASPIRIN 81 MG PO SCH (07:53)
[2022-02-07] MEDS: HYDROcodone/APAP 10-325MG 1 EACH TAB PO PRN ×2 (07:53→13:29)
[2022-02-07] MEDS: TAMSULOSIN 0.4 MG CAP.ER.24H PO SCH (07:53)
[2022-02-07] MEDS: CYCLOBENZAPRINE 5 MG TAB PO SCH (07:53)
[2022-02-07] MEDS: PREGABALIN 75 MG CAP PO SCH (07:53)
[2022-02-07] MEDS: APIXABAN 2.5 MG TABLET PO SCH (07:53)
[2022-02-07] MEDS: LORATADINE 10 MG TAB PO SCH (07:54)
[2022-02-07] MEDS: METOPROLOL TARTRATE 25 MG TAB PO SCH (07:54)
[2022-02-07 08:00] VITALS: RESP 20
[2022-02-07] MEDS: IPRATROPIUM-ALBUTEROL 3 ML NEB INHALATION SCH ×2 (08:39→11:29)
--- NOTE | 2022-02-07 09:44 | P.PN ---
Subjective Progress Note Date: 02/07/22 Principal diagnosis: Status post left total knee arthroplasty Patient is evaluated today at bedside, he is on the cardiac stepdown unit. Patient was not discharged home on 02/05/2022. Patient was noted to have lower oxygen sats with noted shortness of breath. Further workup has been done, they were able to rule out a pulmonary wasn't. Cardiology and internal medicine continued to follow patient. Objective - Vital Signs Vital signs: Vital Signs Temp 97.8 F 02/07/22 07:50 Pulse 80 02/07/22 08:49 Resp 20 02/07/22 07:50 BP 115/75 02/07/22 07:50 Pulse Ox 92 L 02/07/22 08:41 FiO2 Intake & Output 02/06/22 02/07/22 02/07/22 18:59 06:59 18:59 Intake Total 240 Balance 240 Intake: Oral 240 Other: Voiding Method Toilet Toilet Toilet - Exam Left lower extremity: Incision is clean, dry, and intact. The exofin fusion tape is in good condition. There is minimal soft tissue swelling and ecchymosis surrounding the medial and lateral aspects of the incision. Calf is soft, no tenderness with palpation. Plantar flexion, dorsiflexion, EHL, FHL are intact. Sensory exam to light touch throughout the extremity is intact, dorsal pedis pulses 2+. - Labs CBC & Chem 7: 02/07/22 06:44 02/06/22 07:14 Labs: Abnormal Lab Results - Last 24 Hours (Table) 02/07/22 Range/Units 06:44 RBC 3.95 L (4.30-5.90) m/uL Hgb 12.6 L (13.0-17.5) gm/dL Assessment and Plan Assessment: Postoperative day #6 status post left total knee arthroplasty Chest pain Non-STEMI Plan: Pain control, plan for discharge on Sum[place] 10 mg/325 mg 1 tab every 4 hours as needed DVT prophylaxis, Eliquis 2.5mg bid at discharge Wound care, continue light dressing over the exofin tape Ice and elevate the extremity Encourage incentive spirometer Home health care after discharge Medical recommendations Cardiac recommendations Discharge planning: Stable for discharge home today Time with Patient: Less than 30
[2022-02-07 11:19] VITALS: BP 99/65
[2022-02-07 13:20] VITALS: PULSE 64
--- NOTE | 2022-02-08 10:36 | P.DS ---
Providers Date of admission: 02/03/22 12:22 Expected date of discharge: 02/07/22 Attending physician: Jeremy Stallworth Consults: 02/01/22 14:33 Consult Physician Routine Consulting Provider: Ilene Franks Consult Reason/Comments: s/p left total knee arthroplasty Do you want consulting provider notified?: Yes 02/03/22 10:21 Consult Physician Urgent Consulting Provider: Nneka Cedillo Consult Reason/Comments: chest pain, elevated trops Do you want consulting provider notified?: Yes Primary care physician: Ilene Franks [facility] Course: Date of admission: 02/01/2022 Date of discharge: 02/07/2022 Admission diagnosis: Status post left total knee arthroplasty Discharge diagnosis: Same Attending physician: Dr. Stallworth Surgical procedures: Left total knee arthroplasty Brief history: Patient is a 71-year-old with a history of progressive primary left knee osteoarthritis. At this point patient has failed conservative treatment measures and has opted to proceed with a elective left total knee arthroplasty. Hospital course: Details of patient's surgery can be found in operative report. Patient tolerated the procedure well and was subsequently transported to orthopedic floor. Patient's orthopeidc and medical care was provided daily. Patient had daily laboratory tests performed for evaluation of overall blood counts. Patient had daily physical therapy to include strengthening range of motion as well as education with walker ambulation. Patient was treated with heparin and xartelto for their postoperative DVT prophylaxis during their inpatient stay. Postoperatively patient did develop chest pain, troponin levels were elevated. Cardiology was consulted for evaluation, the patient was started on a heparin drip and transferred to the cardiac stepdown unit for further observation. Patient reported satisfactory pain control with oral pain medications by postoperative day 0. Patient showed satisfactory progress with physical therapy. Patient moved steadily through the program and had no difficulty meeting the goals by postoperative day 6. Given patient's otherwise satisfactory course and having met physical therapy goals, plan is to discharge patient home on postoperative day 6. Discharge condition/disposition: Patient will be discharged home in stable condition. Discharge medications: Instructions are given on resumption of patient's normal daily medications per primary care recommendation, in addition patient will be prescribed Eliquis 2.5mg, Colace 100mg, Erie 10mg/325mg Discharge instructions: 1. Wound care and infection precautions, keep incision dry and covered while showering, no lotions, creams, moisturizers. No soaking, tubs, pools, hottubs. Do not scrub over the incision. 2. Weight-bear as tolerated with walker / cane until follow-up. 3. Ice and elevate when necessary. Do not exceed 20 minutes per hour with ice pack. 4. Utilize compression sleeve until seen at first follow up appointment. 5. Visiting nursing care. 6. Home physical therapy including home CPM. 7. Pain meds and anticoagulants per prescription. 8. Pain medication has potential to cause constipation. Increase oral fluid and fiber intake. Contact primary care provider if you have not had a bowel movement within 48 hours after discharge 9. No anti-inflammatory medication until discussed at first post operative visit, this including Motrin, Aleve, Mobic, Diclofenac 10. Follow up in office at 2 weeks postop with Av Murillo PA-C/Baldev Villarreal 11. Follow up with your primary care doctor 7-10 days after discharge. 12. Contact [facility] with any questions, . Procedures: Left total knee arthroplasty Plan - Discharge Summary Discharge Rx Participant: No New Discharge Prescriptions: New Docusate [Colace] 100 mg PO DAILY #30 capsule Apixaban [Eliquis] 2.5 mg PO BID #60 tab Metoprolol Tartrate [Lopressor] 25 mg PO TID 30 Days #90 tab Albuterol Inhaler [Ventolin Hfa Inhaler] 2 puff INHALATION RT-Q6H 30 Days #1 each HYDROcodone/APAP 10-325MG [Erie 10-325] 1 tab PO Q6HR PRN #28 tab PRN Reason: Pain Continue Pregabalin [Lyrica] 150 mg PO BID Aspirin 81 mg PO DAILY #30 chew Atorvastatin [Lipitor] 80 mg PO HS HYDROcodone/APAP 10-325MG [Erie 10-325] 1 tab PO Q6H PRN PRN Reason: Pain Omeprazole 20 mg PO HS Nitroglycerin 0.4 mg SL Q5M PRN PRN Reason: Chest Pain Isosorbide Mononitrate ER [Imdur] 60 mg PO QAM Tamsulosin [Flomax] 0.4 mg PO BID Levothyroxine Sodium [Synthroid] 50 mcg PO QAM Ezetimibe [Zetia] 10 mg PO DAILY Albuterol Sulfate [Ventolin HFA] 1 - 2 puff INHALATION Q6H PRN PRN Reason: Shortness Of Breath Lidocaine 4% Cream [Lmx 4] 1 applic TOPICAL BID Naproxen [Naprosyn] 500 mg PO Q12HR Cyclobenzaprine HCl 7.5 mg PO TID BETWEEN MEALS Cetirizine HCl [Zyrtec] 10 mg PO DAILY Albuterol Nebulized (Conc) [Ventolin Nebulized (Conc)] 2.5 mg INHALATION Q6H PRN PRN Reason: Shortness Of Breath Colchicine [Mitigare] 0.6 mg PO DAILY Discontinued Metoprolol Tartrate [Lopressor] 25 mg PO BID Discharge Medication List Pregabalin [Lyrica] 150 mg PO BID 06/20/18 [History] Aspirin 81 mg PO DAILY #30 chew 06/24/18 [Rx] Atorvastatin [Lipitor] 80 mg PO HS 10/29/18 [History] HYDROcodone/APAP 10-325MG [Erie 10-325] 1 tab PO Q6H PRN 02/13/19 [History] Nitroglycerin 0.4 mg SL Q5M PRN 02/13/19 [History] Omeprazole 20 mg PO HS 02/13/19 [History] Isosorbide Mononitrate ER [Imdur] 60 mg PO QAM 02/19/19 [History] Albuterol Nebulized (Conc) [Ventolin Nebulized (Conc)] 2.5 mg INHALATION Q6H PRN 10/20/21 [History] Albuterol Sulfate [Ventolin HFA] 1 - 2 puff INHALATION Q6H PRN 10/20/21 [History] Cetirizine HCl [Zyrtec] 10 mg PO DAILY 10/20/21 [History] Cyclobenzaprine HCl 7.5 mg PO TID BETWEEN MEALS 10/20/21 [History] Ezetimibe [Zetia] 10 mg PO DAILY 10/20/21 [History] Levothyroxine Sodium [Synthroid] 50 mcg PO QAM 10/20/21 [History] Lidocaine 4% Cream [Lmx 4] 1 applic TOPICAL BID 10/20/21 [History] Naproxen [Naprosyn] 500 mg PO Q12HR 10/20/21 [History] Tamsulosin [Flomax] 0.4 mg PO BID 10/20/21 [History] Colchicine [Mitigare] 0.6 mg PO DAILY 01/31/22 [History] Apixaban [Eliquis] 2.5 mg PO BID #60 tab 02/04/22 [Rx] Docusate [Colace] 100 mg PO DAILY #30 capsule 02/04/22 [Rx] HYDROcodone/APAP 10-325MG [Erie 10-325] 1 tab PO Q6HR PRN #28 tab 02/04/22 [Rx] Albuterol Inhaler [Ventolin Hfa Inhaler] 2 puff INHALATION RT-Q6H 30 Days #1 ea ch 02/05/22 [Rx] Metoprolol Tartrate [Lopressor] 25 mg PO TID 30 Days #90 tab 02/05/22 [Rx] Follow up Appointment(s)/Referral(s): Baldev Soriano PAC [PHYSICIAN RELIABILITY MANAGER] - 02/17/22 9:10 am [facility],Equipment [NON-STAFF] - (Call [facility] when you get home and they will deliver your cpm machine. ) [facility], [NON-STAFF] - ([facility] will contact you to arrange a visit. ) Ilene Franks MD [Primary Care Provider] - 02/11/22 11:00 am () Ambulatory/Diagnostic Orders: Complete Blood Count w/diff [LAB.AMB] Location: None Selected Patient Instructions/Handouts: Heart Attack (DC), Knee Replacement (DC) Activity/Diet/Wound Care/Special Instructions: Orthopedic Discharge Instructions: 1. Wound care and infection precautions, keep incision dry and covered while showering, no lotions, creams, moisturizers. No soaking, pools, hot tubs. Do not scrub over incision. 2. Weight-bear as tolerated with walker / cane until follow-up. 3. Ice and elevate when necessary. Do not exceed 20 minutes per hour with ice pack. 4. Utilize compression sleeve until seen at first follow up appointment. 5. Pain meds and anticoagulants per prescription. 6. Pain medication has potential to cause constipation. Increase oral fluid and fiber intake. Contact primary care provider if you have not had a bowel movement within 48 hours after discharge. 7. No anti-inflammatory medication until discussed at first post operative visit, this including Motrin, Aleve, Mobic, Diclofenac. 8. Follow up in office at 2 weeks postop with Av Murillo PA-C / Baldev Soriano PA-C 9. Follow up with your primary care doctor 7-10 days after discharge. 10. Contact [facility] with any questions, . Keep exofin fusion tape on until follow-up appointment in office in 2 weeks. While showering, cover tape with Saran wrap. Keep incision clean, dry, intact. Medications: Erie 10 mg/325 mg; Colace; Eliquis continue with albuterol inhaler and nebulized treatments continue incentive spirometer at least 10 times per hour while awake follow up with pcp on discharge early next week Discharge Disposition: HOME WITH HOME HEALTH SERVICES
== END 2022-02-07 14:29 | disposition home health service (06) | DRG 982 ==
LOC: OR 09:46 → 4SSUR 14:55 → OR 02-02 14:28 → 4SSUR 02-02 14:34 → 3SCARD 02-03 11:49 → OBSVTOIN 02-03 12:22
PROVIDERS: ADMIT Orthopaedic Surgery; ATTEND Orthopaedic Surgery
PROC: 0SRD0J9 Replacement of Left Knee Joint with Synthetic Substitute, Cemented, Open Approach (ICD-10-PCS; principal; 2022-02-01 12:00)
DX: I21.4 Non-ST elevation (NSTEMI) myocardial infarction (principal); I50.32 Chronic diastolic (congestive) heart failure; I11.0 Hypertensive heart disease with heart failure; E03.9 Hypothyroidism, unspecified; J44.9 Chronic obstructive pulmonary disease, unspecified; I25.10 Atherosclerotic heart disease of native coronary artery without angina pectoris; M17.12 Unilateral primary osteoarthritis, left knee; M11.262 Other chondrocalcinosis, left knee; M21.162 Varus deformity, not elsewhere classified, left knee; E78.5 Hyperlipidemia, unspecified; K21.9 Gastro-esophageal reflux disease without esophagitis; G89.29 Other chronic pain; N40.0 Benign prostatic hyperplasia without lower urinary tract symptoms; M54.9 Dorsalgia, unspecified; K57.90 Diverticulosis of intestine, part unspecified, without perforation or abscess without bleeding; I25.2 Old myocardial infarction; F17.200 Nicotine dependence, unspecified, uncomplicated; Z79.890 Hormone replacement therapy; Z79.82 Long term (current) use of aspirin; Z79.1 Long term (current) use of non-steroidal anti-inflammatories (NSAID); Z79.899 Other long term (current) drug therapy; Z86.69 Personal history of other diseases of the nervous system and sense organs; Z96.82 Presence of neurostimulator; Z90.49 Acquired absence of other specified parts of digestive tract; Z95.5 Presence of coronary angioplasty implant and graft; Z87.19 Personal history of other diseases of the digestive system; Z87.01 Personal history of pneumonia (recurrent); Z80.0 Family history of malignant neoplasm of digestive organs; Z80.1 Family history of malignant neoplasm of trachea, bronchus and lung; Z82.49 Family history of ischemic heart disease and other diseases of the circulatory system
CPT/HCPCS: 64448; 64999; 71045; 71275; 76942; 80048; 80053; 84484; 85025; 85379; 85610; 85730; 88300; 93005; 93306; 94640; 94760

== ENCOUNTER → 2022-08-05 | Outpatient (CLI) | payer MEDICARE, OTHER ==
--- NOTE | 2022-08-05 13:02 | XR ---
EXAMINATION TYPE: XR chest 2V DATE OF EXAM: 08/05/2022 COMPARISON: 02/06/2022 INDICATION: Cough x3 weeks TECHNIQUE: Frontal and lateral views of the chest are obtained. FINDINGS: The heart size is normal. The pulmonary vasculature is normal. Right lower lobe infiltrate appears to be present. Small posterior pleural effusions present.. Stimu lator leads are in the mid thoracic region. IMPRESSION: 1. Right lower lobe infiltrate with small right pleural effusion. Follow-up is recommended.
== END | disposition home or self-care (01) ==
LOC: RADXRMAIN 12:44
PROVIDERS: ATTEND Internal Medicine
DX: J90 Pleural effusion, not elsewhere classified (principal); R05.9 Cough, unspecified
CPT/HCPCS: 71046

== ENCOUNTER → 2022-09-29 | Outpatient (CLI) | payer MEDICARE, OTHER ==
--- NOTE | 2022-09-29 11:38 | XR ---
EXAMINATION TYPE: XR chest 2V DATE OF EXAM: 09/29/2022 COMPARISON: 08/05/2022, 02/06/2022, CT chest 02/05/2022 HISTORY: Cough TECHNIQUE: Frontal and lateral views of the chest are obtained. FINDINGS: There is increased airspace opacity in the right middle lobe with adjacent pleural thicken ing or fluid anteriorly and tracking up both fissures. There is also asymmetric prominent interstitia l markings of the entire right chest which cannot be accounted for by technique. The heart is not enl arged and there is no pulmonary vascular congestion. There is flattening of the diaphragm. No pneumot horax. Spinal stimulator present. Left shoulder prosthesis. Degenerative changes of the spine, but no acute osseous abnormality. IMPRESSION: Persistent and more prominent right middle lobe airspace opacities and adjacent pleural thickening. Evolving round atelectasis is possible, but in the setting of COPD and asymmetric increas ed interstitial markings on the right, a CT chest should be performed.
== END | disposition home or self-care (01) ==
LOC: RADXRMAIN 10:26
PROVIDERS: ATTEND Internal Medicine
DX: J92.9 Pleural plaque without asbestos (principal); R91.8 Other nonspecific abnormal finding of lung field
CPT/HCPCS: 71046

== ENCOUNTER → 2022-10-05 | Outpatient (CLI) | payer MEDICARE, OTHER ==
--- NOTE | 2022-10-07 09:42 | CT ---
EXAMINATION TYPE: CT chest w con CT DLP: 470.2 mGycm, Automated exposure control for dose reduction was used. DATE OF EXAM: 10/05/2022 1:48 PM COMPARISON: CT chest 02/05/2022. CLINICAL INDICATION:Male, 72 years old with history of R91.8, previous abnormal exam-lung field, sob TECHNIQUE: Multiple axial images were obtained through the chest. Sagittal and coronal reformats were created for review. Contrast used:100 mL of Isovue 300 with IV Contrast Oral contrast used: none. FINDINGS: Motion artifact limits evaluation of the lungs. LUNGS/ PLEURA: No evidence for pneumothorax or pleural effusion. There is scattered increased interst itial lung markings. There is somewhat round consolidation somewhat masslike in the right middle lobe as seen on prior radiographs there is volume loss. This area on sagittal imaging measures 1.8 x 1.5 x 2.4 cm. This appears somewhat tethered to the pleura. Additional areas seen in the right upper lung posteriorly. Streaky atelectasis/scarring seen along the periphery of the lungs most pronounced posteriorly and ne ar the lung bases. Some airspace opacities are seen within the right lung base. Medial right lower lobe suspected airspace opacity measuring 2.0 x 1.4 cm. AIRWAY: Patent and unremarkable. HEART: Size within normal limits. There is coronary artery calcifications. MEDIASTINUM: No gross evidence of adenopathy. VASCULATURE: No aortic aneurysm. No central pulmonary filling defect to suggest pulmonary embolism. The ascending thoracic aorta is mildly dilated up to 4.1 cm. MUSCULOSKELETAL: No acute osseous abnormalities, stimulator device leads terminating in the posterior thecal sac. Partially visualized fixation hardware in the lumbar spine. SOFT TISSUES/LYMPH NODES: Unremarkable. LOWER NECK: No significant findings. UPPER ABDOMEN: The gallbladder surgically absent. IMPRESSION: 1. Similar volume loss in the right middle lobe when comparing to 02/05/2022 with somewhat tethered a ppearance suggesting cicatrisation atelectasis. A similar appearing area in the right upper lobe post erior aspect is also present. Consider indwelling the patient and lung cancer screening program yearl y if they meet criteria. 2. Regular lobe airspace opacity favored represent infectious/inflammatory process. Short-term follo w-up CT chest in 3-6 months is recommended to ensure resolution. 3. Mild ascending thoracic aorta ectasia. 4. No evidence for central pulmonary embolus. 5. Moderate to severe coronary artery atherosclerosis.
== END | disposition home or self-care (01) ==
LOC: RADCTMAIN 12:40
PROVIDERS: ATTEND Internal Medicine
DX: I25.10 Atherosclerotic heart disease of native coronary artery without angina pectoris (principal); I77.810 Thoracic aortic ectasia; R91.8 Other nonspecific abnormal finding of lung field
CPT/HCPCS: 82565; 84520; 71260; 36415; Q9967

== ENCOUNTER 2022-11-14 09:11 | Observation (INO) | payer MEDICARE, OTHER ==
[2022-11-14 09:33] LABS: Glucose,Whole Blood 165 mg/dL (70-110)
[2022-11-14] MEDS ORDERED: MORPHINE SULFATE 4 MG/ML SYRINGE IV STA (09:49)
--- NOTE | 2022-11-14 09:49 | ED ---
Chest Pain HPI - General Chief Complaint: Chest Pain Stated Complaint: Chest Pain Time Seen by Provider: 11/14/22 09:15 Source: patient Mode of arrival: wheelchair Limitations: no limitations - History of Present Illness Initial Comments: 72-year-old male with past medical history of coronary artery disease, COPD who presents to the emergency department with report of chest pain. States that it started this morning. Located on his left chest without radiation. He took 3 nitros at home without any improvement in his pain. He does have several stents in his heart. Denies nausea vomiting. No diaphoresis. Patient arrives in a considerable amount of pain and therefore history is difficult to obtain - Related Data Home Medications Medication Instructions Recorded Confirmed Atorvastatin [Lipitor] 80 mg PO HS 10/29/18 11/14/22 HYDROcodone/APAP 10-325MG [[place] 1 tab PO Q6H PRN 02/13/19 11/14/22 10-325] Nitroglycerin 0.4 mg SL Q5M PRN 02/13/19 11/14/22 Omeprazole 20 mg PO HS 02/13/19 11/14/22 Isosorbide Mononitrate ER [Imdur] 60 mg PO QAM 02/19/19 11/14/22 Cetirizine HCl [Zyrtec] 10 mg PO DAILY 10/20/21 11/14/22 Cyclobenzaprine HCl 7.5 mg PO TID PRN 10/20/21 11/14/22 Tamsulosin [Flomax] 0.4 mg PO BID 10/20/21 11/14/22 Albuterol Inhaler [Ventolin Hfa 2 puff INHALATION RT-BID 11/14/22 11/14/22 Inhaler] Lidopro 4% 1 applic TOPICAL TID PRN 11/14/22 11/14/22 Pregabalin [Lyrica] 150 mg PO BID 11/14/22 11/14/22 traZODone HCL [Desyrel] 50 mg PO HS 11/14/22 11/14/22 Previous Rx's Medication Instructions Recorded Aspirin 81 mg PO DAILY #30 chew 06/24/18 Nicotine 21Mg/24Hr Patch [Habitrol] 1 patch TRANSDERM DAILY patch 11/15/22 Allergies Allergy/AdvReac Type Severity Reaction Status Date / Time No Known Allergies Allergy Verified 05/08/23 09:46 Review of Systems ROS Statement: Those systems with pertinent positive or pertinent negative responses have been documented in the HPI. ROS Other: All systems not noted in ROS Statement are negative. EKG Findings - EKG Comments: EKG Findings:: EKG demonstrates sinus rhythm with a rate of 89. MO interval 140. QRS 86. QTC of 376. No acute ST segment elevations or depressions. Some baseline artifact Past Medical History Past Medical History: Asthma, Coronary Artery Disease (CAD), Chest Pain / Angina, COPD, Hyperlipidemia, Myocardial Infarction ([place]), Osteoarthritis (OA), Pneumonia, Prostate Disorder, Seizure Disorder Additional Past Medical History / Comment(s): COPD. SOB ALWAYS. Coronary artery disease. Diverticulosis. Seizure disorder(NONE IN MANY YEARS)> hypertension, hyperlipidemia, chronic back pain and the patient has astimulator. The patient also has degenerative disc disease and chronic back pain. He suffers from BPH, carpal tunnel disease Last Myocardial Infarction Date:: 06/22/18 History of Any Multi-Drug Resistant Organisms: None Reported Past Surgical History: Adenoidectomy, Back Surgery, Cholecystectomy, Heart Catheterization With Stent, Orthopedic Surgery, Tonsillectomy Additional Past Surgical History / Comment(s): Multiple back surgeries including a pain stimulator in place/hardware, R knee surgery with hardware, L rotator cuff repair x 4/cadaver bone, colonoscopy Past Anesthesia/Blood Transfusion Reactions: No Reported Reaction Date of Last Stent Placement:: 06/22/18 Past Psychological History: No Psychological Hx Reported Smoking Status: Current every day smoker Past Alcohol Use History: None Reported Past Drug Use History: None Reported - Past Family History Father Family Medical History: Cancer Additional Family Medical History / Comment(s): Liver cancer. Mother Additional Family Medical History / Comment(s): Brain aneurysm Sister(s) Family Medical History: Cancer Additional Family Medical History / Comment(s): Lung cancer Brother(s) Family Medical History: No Reported History Family Family Medical History: Unable to Obtain General Exam Limitations: no limitations General appearance: alert, in distress Head exam: Present: atraumatic, normocephalic, normal inspection Eye exam: Present: normal appearance, PERRL, EOMI. Absent: scleral icterus, conjunctival injection, periorbital swelling ENT exam: Present: normal exam, mucous membranes moist Neck exam: Present: normal inspection. Absent: tenderness, meningismus, lymphadenopathy Respiratory exam: Present: normal lung sounds bilaterally. Absent: respiratory distress, wheezes, rales, rhonchi, stridor Cardiovascular Exam: Present: regular rate, normal rhythm, normal heart sounds. Absent: systolic murmur, diastolic murmur, rubs, gallop, clicks GI/Abdominal exam: Present: soft, normal bowel sounds. Absent: distended, tenderness, guarding, rebound, rigid Extremities exam: Present: normal inspection, full ROM, normal capillary refill. Absent: tenderness, pedal edema, joint swelling, calf tenderness Back exam: Present: normal inspection Neurological exam: Present: alert, oriented X3, CN II-XII intact Psychiatric exam: Present: normal affect, normal mood Skin exam: Present: warm, dry, intact, normal color. Absent: rash Course Vital Signs 11/14/22 11/14/22 11/14/22 09:13 09:30 09:40 Temperature 98 F Pulse Rate 95 85 90 Respiratory 16 17 22 Rate Blood Pressure 139/76 112/82 117/73 O2 Sat by Pulse 96 94 L 94 L Oximetry 11/14/22 11/14/22 11/14/22 09:50 10:00 10:30 Temperature Pulse Rate 85 86 84 Respiratory 16 20 20 Rate Blood Pressure 133/75 133/75 111/80 O2 Sat by Pulse 94 L 95 95 Oximetry 11/14/22 11/14/22 11:00 12:15 Temperature Pulse Rate 84 82 Respiratory 20 18 Rate Blood Pressure 113/78 118/81 O2 Sat by Pulse 95 96 Oximetry Chest Pain MDM - MDM Was pt. sent in by a medical professional or institution (, PA, DATA INTEGRITY ANALYST, urgent care, hospital, or retirement...) When possible be specific @ -No Did you speak to anyone other than the patient for history (EMS, parent, family, police, friend...)? What history was obtained from this source @ -No Did you review nursing and triage notes (agree or disagree)? Why? @ -I reviewed and agree with nursing and triage notes Were old charts reviewed (outside hosp., previous admission, EMS record, old EKG, old radiological studies, urgent care reports/EKG's, retirement records)? Report findings @ -Discharge summary from last hospitalization reviewed Differential Diagnosis (chest pain, altered mental status, abdominal pain women, abdominal pain men, vaginal bleeding, weakness, fever, dyspnea, syncope, headache, dizziness, GI bleed, back pain, seizure, CVA, palpatations, mental health, musculoskeletal)? @ -acs, nstemi, stemi, chest wall pain/strain, angina, cornonary vasospasm, viral syndrome, vertigo, dehydration EKG interpreted by me (3pts min.). @ -The EKG was interpreted by myself - please see EKG heading for further information X-rays interpreted by me (1pt min.). @ -yes, interpreted by myself CT interpreted by me (1pt min.). @ -yes, interpreted by myself U/S interpreted by me (1pt. min.). @ -None done What testing was considered but not performed or refused? (CT, X-rays, U/S, labs)? Why? @ -None What meds were considered but not given or refused? Why? @ -None Did you discuss the management of the patient with other professionals (professionals i.e. , PA, DATA INTEGRITY ANALYST, lab, RT, psych nurse, health care social worker, seat builder, teacher, training and development officer, spring encaser)? Give summary @ -Yes, I spoke with Dr. Franks about admitting the patient Was smoking cessation discussed for >3mins.? @ -No Was critical care preformed (if so, how long)? @ -No Were there social determinants of health that impacted care today? How? (Homelessness, low income, unemployed, alcoholism, drug addiction, transportation, low edu. Level, literacy, decrease access to med. care, custodial, rehab)? @ -No Was there de-escalation of care discussed even if they declined (Discuss DNR or withdrawal of care, Hospice)? DNR status @ -No What co-morbidities impacted this encounter? (DM, HTN, Smoking, COPD, CAD, Cancer, CVA, ARF, Chemo, Hep., AIDS, mental health diagnosis, sleep apnea, morbid obesity)? @ -coronary disease Was patient admitted / discharged? Hospital course, mention meds given and route, prescriptions, significant lab abnormalities, going to OR and other pertinent info. @ - @ -Upon arrival patient is placed into room 1. A thorough history and physical exam was performed. Patient does appear to be in significant distress. IV access is established and laboratory studies were conducted. He was given 4 mg morphine for pain. Laboratory studies are reviewed and troponin is negative. Patient does have an x-ray and CT performed. There is a right middle lobe consolidation which is persistent. No signs of dissection. These results I discussed with patient. Recommended admission for serial troponins. Patient was agreeable to this. He is taken to the floor in stable condition Undiagnosed new problem with uncertain prognosis? @ -yes Drug Therapy requiring intensive monitoring for toxicity (Heparin, Nitro, Insulin, Cardizem)? @ -No Were any procedures done? @ -No Diagnosis/symptom? @ -acute chest pain, persistent right middle lobe consolidation Uncomplicated (without systemic symptoms) or Complicated (systemic symptoms)? @ -complicated Side effects of treatment? @ -allergic reaction Exacerbation, Progression, or Severe Exacerbation? @ -No Poses a threat to life or bodily function? How? (Chest pain, [place], [place], pneumonia, PE, COPD, DKA, ARF, appy, cholecystitis, CVA, Diverticulitis, Homicidal, Suicidal, threat to staff... and all critical care pts) @ -yes- chest pain can indicated underlying cardiac or pulmonary disease which could be life threatening Disposition Clinical Impression: Chest pain, Mass of middle lobe of right lung Disposition: ADMITTED IP TO THIS [facility] Condition: Serious Is patient prescribed a controlled substance at d/c from ED?: No Time of Disposition: 12:21 Decision to Admit Reason: Admit from EC Decision Date: 11/14/22 Decision Time: 12:21
[2022-11-14 10:11] LABS: Basophils % (A) 0 %; Eosinophils # (A) 0.3 k/uL (0-0.7); Eosinophils % (A) 4 %; HCT 39.3 % (39.0-53.0); Lymphocytes % (A) 30 %; MCH 29.7 pg (25.0-35.0); MCHC 33.1 g/dL (31.0-37.0); MCV 89.9 fL (80.0-100.0); Mean Platelet Volume 7.9; Monocytes # (A) 0.4 k/uL (0-1.0); Monocytes % (A) 6 %; Neutrophils # (A) 3.7 k/uL (1.3-7.7); Neutrophils % (A) 57 %; Platelet Count 261 k/uL (150-450); RBC 4.37 m/uL (4.30-5.90); RDW 15.7 % (11.5-15.5); WBC 6.5 k/uL (3.8-10.6)
[2022-11-14 10:20] LABS: INR 0.9 (<1.2); Partial Thromboplastin Time 24.7 sec (22.0-30.0); Prothrombin Time 9.8 sec (9.0-12.0)
--- NOTE | 2022-11-14 10:25 | XR ---
EXAMINATION TYPE: XR chest 2V DATE OF EXAM: 11/14/2022 COMPARISON: 09/29/2022 INDICATION: Chest pain TECHNIQUE: Frontal and lateral views of the chest are obtained. FINDINGS: The heart size is normal. The pulmonary vasculature is normal. There is a suggestion of an opacity in the right lower lobe better visualized on the lateral projecti on. This appears to be a change from the September examination. There is some hyperinflation and flatteni ng of the diaphragms. Correlate for COPD. Stimulator leads in the thoracic region are evident. Left shoulder prosthesis is noted.. IMPRESSION: 1. Posterior Right lower lobe infiltrate. Correlate for atelectasis or pneumonia. 2. COPD
[2022-11-14 10:32] LABS: Albumin 3.9 g/dL (3.5-5.0); Magnesium 1.8 mg/dL (1.6-2.3); Potassium 4.4 mmol/L (3.5-5.1); Total Bilirubin 0.4 mg/dL (0.2-1.3); Total Protein 6.8 g/dL (6.3-8.2)
--- NOTE | 2022-11-14 11:49 | CT ---
CT CHEST FOR PULMONARY EMBOLISM. EXAMINATION TYPE: CT angio chest DATE OF EXAM: 11/14/2022 INDICATION: Lt sided chest pain CT DLP: 1049.5 mGycm, Automated exposure control for dose reduction was used. CONTRAST: Patient injected with 100 mL of Isovue 300. COMPARISON: 10/05/2022 TECHNIQUE: CT of the chest is performed on a spiral scan at 2 mm thick sections. Study is performed with intravenous contrast timed for evaluation of the aorta. FINDINGS: No persistent filling defects are evident to suggest an acute pulmonary embolism. No mediastinal or hilar adenopathy enlarged by CT criteria is evident. The ascending aorta diameter at the level of the main pulmonary artery is 3.9 cm. The main pulmonary artery diameter at the bifur cation is 3.6 cm. No aortic dissection is evident. There is a consolidation or mass within the right middle lobe lung base. This area measures 4.6 x 2.8 cm. Follow-up to clearing is recommended. Couple of small areas of pneumonitis changes are within th e periphery of the right lung, example images series 501 image 59 and 57. Previous infiltrate in the posterior mid right lung has resolved. Some posterior pleural thickening along the right apex is pres ent. Limited CT section through the upper abdomen are unremarkable. IMPRESSIONS: 1. Persistent consolidation right lobe at the base, appears stable from comparison. 2. Scattered small areas of pneumonitis, improved from comparison. 3. No aortic dissection.
[2022-11-14] MEDS ORDERED: ASPIRIN 81 MG PO STA (12:18)
[2022-11-14] MEDS ORDERED: NALOXONE 0.4 MG/ML 1 ML VIAL IV PRN (12:21)
--- NOTE | 2022-11-14 13:46 | P.CNPUL ---
History of Present Illness Consult date: 11/14/22 Reason for consult: abnormal CXR/CT History of present illness: 72-year-old male patient with known history of COPD and previous history of coronary artery disease, presented to the emergency department this morning because of chest pain. The patient started having chest pain this morning. The pain is located over the left anterior chest without any radiation. He took nitroglycerin at home without any improvement and he decided to come into the hospital. He is known to have coronary artery disease and he has undergone previous coronary stenting. Note that the patient had an abnormal troponin, normal blood work with a BUN of 17 and a creatinine of 1.2, CBC was essentially within normal limits. ProBNP was 86. Chest x-ray was consistent with COPD with questionable right lower lobe posterior segment infiltrate. There was also pebbles kground COPD. The patient was given a CT angiogram and there is an opacity seen in the right middle lobe measuring 4.6 x 2.8 cm in size. Note that this abnormality was also present on a previous CAT scan of the chest and the findings of essentially unchanged based on a comparing CAT scan of the chest from 02/05/2022. Going back to the earlier CAT scan from 04/04/2019, the patient had chronic infiltrative changes and scarring in the right middle lobe area with pleural scarring. Similar findings are also seen on the CAT scan of the chest from 10/29/2018.. No mediastinal lymphadenopathy. The aortic structure was within normal limits. There is no evidence of any filling defects. The EKG showed a normal sinus rhythm. Nonspecific changes were seen without any ST segment elevation or depression. On a separate note, the patient is known to have seizure disorder, hypertension hyperlipidemia and chronic back pain and the patient has a pain stimulator to the back along with degenerative disc disease and chronic back pain. He has undergone cardiac catheterization 2018 revealing a patent stent in the diagonal branch and the circumflex. He has a chronically occluded RCA, borderline s ignificant lesion in the proximal LAD taken off the diagonal branch. The fractional flow reserve was adequate in the LAD and no intervention was done. Echocardiogram from 02/03/2022 was within normal limits. Review of Systems Constitutional: Denies chills, Denies fever Eyes: denies as per HPI, denies blurred vision, denies bulging eye, denies decreased vision, denies diplopia, denies discharge, denies dry eye, denies irritation, denies itching, denies pain, denies photophobia, denies loss of peripheral vision, denies loss of vision, denies tunnel vision/blind spots Ears: deny: decreased hearing, ear discharge, earache, tinnitus Ears, nose, mouth and throat: Denies headache, Denies sore throat Breasts: absent: as per HPI, gynecomastia Cardiovascular: Reports decreased exercise tolerance, Reports dyspnea on exertion, Reports shortness of breath, in addition to that the patient is experiencing chest pain which brought into the hospital. Shortness of breath is rather chronic. Respiratory: Reports dyspnea, Reports wheezing Gastrointestinal: Reports as per HPI Genitourinary: Reports as per HPI Musculoskeletal: Reports as per HPI Musculoskeletal: absent: ankle pain, ankle stiffness, ankle swelling Integumentary: Denies pruritus, Denies rash Neurological: Reports as per HPI Psychiatric: Reports as per HPI, Reports change in sleep habits, Reports irritability Endocrine: Reports as per HPI Hematologic/Lymphatic: Reports as per HPI Allergic/Immunologic: Reports as per HPI Past Medical History Past Medical History: Coronary Artery Disease (CAD), Chest Pain / Angina, COPD, Hyperlipidemia, Myocardial Infarction ([place]), Osteoarthritis (OA), Pneumonia, Prostate Disorder, Seizure Disorder Additional Past Medical History / Comment(s): COPD. SOB ALWAYS. Coronary artery disease. Diverticulosis. Seizure disorder(NONE IN MANY YEARS)> hypertension, hyperlipidemia, chronic back pain and the patient has astimulator. The patient also has degenerative disc disease and chronic back pain. He suffers from BPH, carpal tunnel disease Last Myocardial Infarction Date:: 06/22/18 History of Any Multi-Drug Resistant Organisms: None Reported Past Surgical History: Adenoidectomy, Back Surgery, Cholecystectomy, Heart Catheterization With Stent, Orthopedic Surgery, Tonsillectomy Additional Past Surgical History / Comment(s): Multiple back surgeries including a pain stimulator in place/hardware, R knee surgery with hardware, L rotator cuff repair x 4/cadaver bone, colonoscopy Past Anesthesia/Blood Transfusion Reactions: No Reported Reaction Date of Last Stent Placement:: 06/22/18 Past Psychological History: No Psychological Hx Reported Smoking Status: Current every day smoker Past Alcohol Use History: None Reported Past Drug Use History: None Reported - Past Family History Father Family Medical History: Cancer Additional Family Medical History / Comment(s): Liver cancer. Mother Additional Family Medical History / Comment(s): Brain aneurysm Sister(s) Family Medical History: Cancer Additional Family Medical History / Comment(s): Lung cancer Brother(s) Family Medical History: No Reported History Family Family Medical History: Unable to Obtain Medications and Allergies Home Medications Medication Instructions Recorded Confirmed Type Aspirin 81 mg PO DAILY #30 chew 06/24/18 11/14/22 Rx Atorvastatin [Lipitor] 80 mg PO HS 10/29/18 11/14/22 History HYDROcodone/APAP 10-325MG [[place] 1 tab PO Q6H PRN 02/13/19 11/14/22 History 10-325] Nitroglycerin 0.4 mg SL Q5M PRN 02/13/19 11/14/22 History Omeprazole 20 mg PO HS 02/13/19 11/14/22 History Isosorbide Mononitrate ER [Imdur] 60 mg PO QAM 02/19/19 11/14/22 History Cetirizine HCl [Zyrtec] 10 mg PO DAILY 10/20/21 11/14/22 History Cyclobenzaprine HCl 7.5 mg PO TID PRN 10/20/21 11/14/22 History Tamsulosin [Flomax] 0.4 mg PO BID 10/20/21 11/14/22 History Albuterol Inhaler [Ventolin Hfa 2 puff INHALATION RT-BID 11/14/22 11/14/22 History Inhaler] Lidopro 4% 1 applic TOPICAL TID PRN 11/14/22 11/14/22 History Pregabalin [Lyrica] 150 mg PO BID 11/14/22 11/14/22 History traZODone HCL [Desyrel] 50 mg PO HS 11/14/22 11/14/22 History Allergies Allergy/AdvReac Type Severity Reaction Status Date / Time No Known Allergies Allergy Verified 11/14/22 09:46 Physical Exam Vitals: Vital Signs Temp Pulse Resp BP Pulse Ox 11/14/22 12:15 82 18 118/81 96 11/14/22 11:00 84 20 113/78 95 11/14/22 10:30 84 20 111/80 95 11/14/22 10:00 86 20 133/75 95 11/14/22 09:50 85 16 133/75 94 L 11/14/22 09:40 90 22 117/73 94 L 11/14/22 09:30 85 17 112/82 94 L 11/14/22 09:13 98 F 95 16 139/76 96 Intake and Output 11/13/22 11/14/22 11/14/22 22:59 06:59 14:59 Other: Weight 87.09 kg The patient appeared well nourished and normally developed. Vital signs as documented. Head exam is unremarkable. No scleral icterus or corneal arcus noted. Neck is without jugular venous distension, thyromegaly, or carotid bruits. Carotid upstrokes are brisk bilaterally. Lungs are diminished and there is some few scattered expiratory wheezes upon forceful extremity maneuvers. She'll crackles in the lung bases. Otherwise within normal limits. Breath sounds equal and symmetrical. Cardiac exam reveals the PMI to be normally sized and situated. Rhythm is regular. First and second heart sounds normal. No murmurs, rubs or gallops. Abdominal exam reveals normal bowel sounds, no masses, no organomegaly and no aortic enlargement. Extremities are nonedematous and both femoral and pedal pulses are normal.Examination of the skin revealed no evidence of significant rashes, suspicious appearing nevi or other concerning lesions. Neurologically the patient is awake and alert and there is no focal neurological deficits. Results - Laboratory Findings CBC and BMP: 11/14/22 09:55 11/14/22 09:55 PT/INR, D-dimer PT 9.8 sec (9.0-12.0) 11/14/22 09:55 INR 0.9 (<1.2) 11/14/22 09:55 Abnormal lab findings: Abnormal Labs 11/14/22 11/14/22 11/14/22 09:31 09:55 09:55 RDW 15.7 H Sodium 136 L Carbon Dioxide 21 L Glucose 145 H POC Glucose (mg/dL) 165 H - Diagnostic Findings Chest x-ray: image reviewed CT scan - chest: image reviewed Assessment and Plan Plan: Chronic right middle lobe opacity/postinflammatory atelectasis/scar, present back in 2019 and serial CAT scans since then has shown the same abnormality although the area is smaller and looks to be somewhat atelectatic at this point in time. This is very unlikely to be malignant and I doubt any active pneumonitis at this point. COPD with chronic exertional dyspnea Chest pain on that investigation. Normal EKG. Normal troponins Coronary artery disease with previous coronary stenting as mentioned above Hypertension Hyperlipidemia Diverticulosis Chronic back pain and the patient has a pain stimulator in place History of seizure disorder Diverticulosis BPH Carpal tunnel disease Plan Right middle lobe opacities is an area of postinflammatory scar/atelectasis at that goes back to 2019. Extremely unlikely to be malignant. Doubt pneumonia Cardiology workup regarding the chest pain We'll follow
[2022-11-14] MEDS: NICOTINE 21MG/24HR PATCH TRANSDERM SCH (14:12)
[2022-11-14] MEDS ORDERED: CYCLOBENZAPRINE 5 MG TAB PO PRN (17:02)
[2022-11-14] MEDS ORDERED: LIDOCAINE 4% CREAM 5 GM TUBE TOPICAL PRN (17:02)
[2022-11-14] MEDS: HYDROcodone/APAP 10-325MG 1 EACH TAB PO PRN (18:20)
[2022-11-14] MEDS: ASPIRIN 81 MG PO SCH (18:20)
[2022-11-14] MEDS: ISOSORBIDE MONONITRATE ER 60 MG TAB.ER.24H PO SCH (18:20)
[2022-11-14] MEDS: HEPARIN SODIUM,PORCINE/PF 5,000 UNIT/0.5 ML SYRINGE SQ SCH ×2 (18:20→23:23)
--- NOTE | 2022-11-14 18:45 | P.HPIM ---
History of Present Illness H&P Date: 11/14/22 Matthieu Thomas, is a 72-year-old male who presented to [facility] emergency room with a chief complaint of chest pain, patient describes a pressure sensation in the left side of his chest he took 3 nitroglycerin at home without improvement in his chest pain he decided to come to emergency room. He was evaluated in the emergency room vital examination on presentation revealed a temperature of 98 pulse 95 respirations 16 blood pressure 139/76 pulse ox 96% on room air Laboratory data revealed a white blood count of 6.5 hemoglobin 13.0 platelet count 261 sodium 136 potassium 4.4 chloride 102 CO2 21 BUN 17 creatinine 1.2 troponin level less than 0.012 Testing in the emergency room revealed chest x-ray done in the emergency room revealed posterior right lower lobe infiltrate, EKG revealed sinus rhythm with nonspecific T-wave abnormality, CT angiogram of the chest revealed right middle lobe consolidation, no evidence of pulmonary embolism no evidence of aortic dissection Patient was admitted to medical floor for further evaluation and treatment Past Medical History Past Medical History: Coronary Artery Disease (CAD), Chest Pain / Angina, COPD, Hyperlipidemia, Myocardial Infarction (SC), Osteoarthritis (OA), Pneumonia, Prostate Disorder, Seizure Disorder Additional Past Medical History / Comment(s): COPD. SOB ALWAYS. Coronary artery disease. Diverticulosis. Seizure disorder(NONE IN MANY YEARS)> hypertension, hyperlipidemia, chronic back pain and the patient has astimulator. The patient also has degenerative disc disease and chronic back pain. He suffers from BPH, carpal tunnel disease Last Myocardial Infarction Date:: 06/22/18 History of Any Multi-Drug Resistant Organisms: None Reported Past Surgical History: Adenoidectomy, Back Surgery, Cholecystectomy, Heart Catheterization With Stent, Orthopedic Surgery, Tonsillectomy Additional Past Surgical History / Comment(s): Multiple back surgeries including a pain stimulator in place/hardware, R knee surgery with hardware, L rotator cuff repair x 4/cadaver bone, colonoscopy Past Anesthesia/Blood Transfusion Reactions: No Reported Reaction Date of Last Stent Placement:: 06/22/18 Past Psychological History: No Psychological Hx Reported Smoking Status: Current every day smoker Past Alcohol Use History: None Reported Past Drug Use History: None Reported - Past Family History Father Family Medical History: Cancer Additional Family Medical History / Comment(s): Liver cancer. Mother Additional Family Medical History / Comment(s): Brain aneurysm Sister(s) Family Medical History: Cancer Additional Family Medical History / Comment(s): Lung cancer Brother(s) Family Medical History: No Reported History Family Family Medical History: Unable to Obtain Medications and Allergies Home Medications Medication Instructions Recorded Confirmed Type Aspirin 81 mg PO DAILY #30 chew 06/24/18 11/14/22 Rx Atorvastatin [Lipitor] 80 mg PO HS 10/29/18 11/14/22 History HYDROcodone/APAP 10-325MG [[place] 1 tab PO Q6H PRN 02/13/19 11/14/22 History 10-325] Nitroglycerin 0.4 mg SL Q5M PRN 02/13/19 11/14/22 History Omeprazole 20 mg PO HS 02/13/19 11/14/22 History Isosorbide Mononitrate ER [Imdur] 60 mg PO QAM 02/19/19 11/14/22 History Cetirizine HCl [Zyrtec] 10 mg PO DAILY 10/20/21 11/14/22 History Cyclobenzaprine HCl 7.5 mg PO TID PRN 10/20/21 11/14/22 History Tamsulosin [Flomax] 0.4 mg PO BID 10/20/21 11/14/22 History Albuterol Inhaler [Ventolin Hfa 2 puff INHALATION RT-BID 11/14/22 11/14/22 His tory Inhaler] Lidopro 4% 1 applic TOPICAL TID PRN 11/14/22 11/14/22 History Pregabalin [Lyrica] 150 mg PO BID 11/14/22 11/14/22 History traZODone HCL [Desyrel] 50 mg PO HS 11/14/22 11/14/22 History Allergies Allergy/AdvReac Type Severity Reaction Status Date / Time No Known Allergies Allergy Verified 11/14/22 09:46 Physical Exam Vitals: Vital Signs Temp Pulse Pulse Resp BP BP Pulse Ox 11/14/22 13:06 97.4 F L 73 16 127/62 95 11/14/22 12:15 82 18 118/81 96 11/14/22 11:00 84 20 113/78 95 11/14/22 10:30 84 20 111/80 95 11/14/22 10:00 86 20 133/75 95 11/14/22 09:50 85 16 133/75 94 L 11/14/22 09:40 90 22 117/73 94 L 11/14/22 09:30 85 17 112/82 94 L 11/14/22 09:13 98 F 95 16 139/76 96 Intake and Output 11/14/22 11/14/22 11/14/22 06:59 14:59 22:59 Other: # Voids 1 Weight 87.09 kg In general patient is alert and oriented x 3 in no distress HEENT head normocephalic and atraumatic Neck is supple no JVD no goiter no lymphadenopathy no carotid bruit Chest examination is clear to auscultation no crackles no wheezing Cardiac exam reveals regular heart sounds S1 and S2 no gallops no murmurs Abdomen is soft nontender no organomegaly with normal bowel sounds Extremity exam reveals no edema no cyanosis or clubbing Neurological examination reveals no gross focal deficits Results CBC & Chem 7: 11/14/22 09:55 11/14/22 09:55 Labs: Abnormal Lab Results - Last 24 Hours (Table) 11/14/22 11/14/22 11/14/22 Range/Units 09:31 09:55 09:55 RDW 15.7 H (11.5-15.5) % Sodium 136 L (137-145) mmol/L Carbon Dioxide 21 L (22-30) mmol/L Glucose 145 H (74-99) mg/dL POC Glucose (mg/dL) 165 H (70-110) mg/dL Assessment and Plan Plan: Episode of chest pain, patient is admitted to telemetry floor, cardiology consul tation requested Right middle lobe opacity, pulmonary consultation was requested Underlying history of hypertension Underlying history of hyperlipidemia Underlying history of coronary artery disease with previous history of angioplasty and stent placement Underlying history of COPD Underlying history of seizure disorder Underlying history of chronic back pain Underlying history of diverticulosis Underlying history of benign prostatic hypertrophy Continued tobacco use At this time patient is admitted to telemetry floor serial EKG and cardiac enzymes ordered Home medications reviewed and reordered Patient started on subcu heparin for DVT prophylaxis Cardiology consultation requested Also pulmonary consultation is requested for right middle lobe opacity Patient was counseled in length today in regard to smoking cessation Will follow closely
[2022-11-14] MEDS: PREGABALIN 75 MG CAP PO SCH (19:47)
[2022-11-14] MEDS: TAMSULOSIN 0.4 MG CAP.ER.24H PO SCH (19:47)
[2022-11-14] MEDS ORDERED: PANTOPRAZOLE 40 MG TABLET PO SCH (21:00)
[2022-11-14] MEDS ORDERED: ATORVASTATIN 80 MG TAB PO SCH (21:00)
[2022-11-14] MEDS ORDERED: traZODone HCL 50 MG TAB PO SCH (21:00)
[2022-11-14] MEDS ORDERED: MELATONIN 5 MG TABLET PO SCH (23:15)
[2022-11-15] MEDS: ALBUTEROL NEBULIZED 2.5 MG/3 ML INHALATION SCH ×2 (03:13→14:29)
[2022-11-15] MEDS ORDERED: DOBUTamine DRIP for NUC MED 500 MG in DEXTROSE/WATER 1 250ML.BAG IV PRN (07:50)
[2022-11-15] MEDS: PREGABALIN 75 MG CAP PO SCH (08:02)
[2022-11-15] MEDS: TAMSULOSIN 0.4 MG CAP.ER.24H PO SCH (08:03)
[2022-11-15] MEDS: ISOSORBIDE MONONITRATE ER 60 MG TAB.ER.24H PO SCH (08:03)
[2022-11-15] MEDS: ASPIRIN 81 MG PO SCH (08:03)
[2022-11-15] MEDS: HEPARIN SODIUM,PORCINE/PF 5,000 UNIT/0.5 ML SYRINGE SQ SCH ×2 (08:03→15:51)
[2022-11-15 08:25] VITALS: RESP 17
[2022-11-15] MEDS: HYDROcodone/APAP 10-325MG 1 EACH TAB PO PRN ×2 (08:49→15:21)
[2022-11-15] MEDS ORDERED: LORATADINE 10 MG TAB PO SCH (09:00)
--- NOTE | 2022-11-15 09:07 | P.CRDCN ---
History of Present Illness Consult date: 11/15/22 Consult reason: chest pain Chief complaint: chest pain History of present illness: History of present illness: Patient is a pleasant 72-year-old male with significant past medical history of CAD status post PCI, COPD, tobacco abuse, HTN, hyperlipidemia, chronic pain s/p stimulator who presented with complaints of chest pain. He follows with Dr. Bolivar in the office. Yesterday morning he woke up and was having chest pains, he proceeded with his morning activities of drinking coffee and smoking a cigarette and chest pain proceeded to get worse. He describes it as a sharp pain on the left side, this was tender yesterday, however, is not tender today. His symptoms proceeded to get worse so he took 2 [place] tabs, he also took 3 nitro with no relief. The total episode of chest pain lasted a couple hours. He denies any associated symptoms including diaphoresis, shortness of breath, nausea. Nothing made the pain better or worse. Imaging reviewed, chest x-ray shows posterior right lower lobe infiltrate; CTA of the chest shows persistent consolidation of the right lower lobe is stable, scattered small areas of pneumonitis, no aortic dissection. EKG shows sinus rhythm with nonspecific T- wave abnormalities. He had a prior echocardiogram 01/2022 with an ejection fraction of 5055 percent. Lab work revealed troponin negative 3, BNP normal at 86, creatinine 1.2. He was evaluated by pulmonology who reports chronic right middle lobe opacity is stable from years past. He has not had a recent stress test. He did have a heart catheterization in 2019 that showed patent stent of the diagonal branch and the left circumflex, chronic occluded right coronary artery, borderline significant lesion in the proximal LAD at the takeoff of the diagonal branch. He reports feeling better this morning, denies any chest pain or shortness of breath presently. REVIEW OF SYSTEMS: No fever or chills. No cough or expectoration. No diaphoresis. Patient denies headache, dizziness, blurred vision, double vision. Patient denies any stomach discomfort. No nausea, vomiting. No hematochezia. No hematemesis. Denies any black stools or blood in his stools. Denies dysuria or hematuria. No muscle weakness or numbness. No chest pain or pressure. PHYSICAL EXAMINATION: This is a 72-year-old male in no apparent distress at the time of my examination. HEENT: Head is atraumatic, normocephalic. Pupils are equal, round. Mucous membranes of the mouth are moist. There is no jugular venous distention. No carotid bruit is heard. CHEST EXAMINATION: Lungs are clear to auscultation. No chest wall tenderness is noted on palpation or with deep breathing. HEART EXAMINATION: Heart regular rate and rhythm. S1, S2 heard. No murmurs, gallops or rub. ABDOMEN: Soft, nontender. Bowel sounds are heard. No organomegaly noted. EXTREMITIES: 2+ peripheral pulses with no evidence of peripheral edema and no calf tenderness noted. NEUROLOGIC EXAMINATION: Patient is awake, alert and oriented x3. IMPRESSION AND PLAN: History of CAD status post PCI Chest pain, atypical COPD Hypertension Hyperlipidemia Chronic pain Tobacco abuse PLAN: Chest pain is likely atypical, troponins negative, BNP is normal. Blood pressure is well controlled. Continue current regimen. Smoking cessation strongly emphasized. We will check a dobutamine stress test rule out inducible ischemia. If stress testing unremarkable OK to DC from cardiology standpoint. Follow-up in the office with Dr. Bolivar in 1 week. I am dictating on behalf of Dr. Hussein Howell's history/physical and assessment/plan. Past Medical History Past Medical History: Coronary Artery Disease (CAD), Chest Pain / Angina, COPD, Hyperlipidemia, Myocardial Infarction (PR), Osteoarthritis (OA), Pneumonia, Prostate Disorder, Seizure Disorder Additional Past Medical History / Comment(s): COPD. SOB ALWAYS. Coronary artery disease. Diverticulosis. Seizure disorder(NONE IN MANY YEARS)> hypertension, hyperlipidemia, chronic back pain and the patient has astimulator. The patient also has degenerative disc disease and chronic back pain. He suffers from BPH, carpal tunnel disease Last Myocardial Infarction Date:: 06/22/18 History of Any Multi-Drug Resistant Organisms: None Reported Past Surgical History: Adenoidectomy, Back Surgery, Cholecystectomy, Heart Catheterization With Stent, Orthopedic Surgery, Tonsillectomy Additional Past Surgical History / Comment(s): Multiple back surgeries including a pain stimulator in place/hardware, R knee surgery with hardware, L rotator cuff repair x 4/cadaver bone, colonoscopy Past Anesthesia/Blood Transfusion Reactions: No Reported Reaction Date of Last Stent Placement:: 06/22/18 Past Psychological History: No Psychological Hx Reported Smoking Status: Current every day smoker Past Alcohol Use History: None Reported Past Drug Use History: None Reported - Past Family History Father Family Medical History: Cancer Additional Family Medical History / Comment(s): Liver cancer. Mother Additional Family Medical History / Comment(s): Brain aneurysm Sister(s) Family Medical History: Cancer Additional Family Medical History / Comment(s): Lung cancer Brother(s) Family Medical History: No Reported History Family Family Medical History: Unable to Obtain Medications and Allergies Home Medications Medication Instructions Recorded Confirmed Type Aspirin 81 mg PO DAILY #30 chew 06/24/18 11/14/22 Rx Atorvastatin [Lipitor] 80 mg PO HS 10/29/18 11/14/22 History HYDROcodone/APAP 10-325MG [[place] 1 tab PO Q6H PRN 02/13/19 11/14/22 History 10-325] Nitroglycerin 0.4 mg SL Q5M PRN 02/13/19 11/14/22 History Omeprazole 20 mg PO HS 02/13/19 11/14/22 History Isosorbide Mononitrate ER [Imdur] 60 mg PO QAM 02/19/19 11/14/22 History Cetirizine HCl [Zyrtec] 10 mg PO DAILY 10/20/21 11/14/22 History Cyclobenzaprine HCl 7.5 mg PO TID PRN 10/20/21 11/14/22 History Tamsulosin [Flomax] 0.4 mg PO BID 10/20/21 11/14/22 History Albuterol Inhaler [Ventolin Hfa 2 puff INHALATION RT-BID 11/14/22 11/14/22 History Inhaler] Lidopro 4% 1 applic TOPICAL TID PRN 11/14/22 11/14/22 History Pregabalin [Lyrica] 150 mg PO BID 11/14/22 11/14/22 History traZODone HCL [Desyrel] 50 mg PO HS 11/14/22 11/14/22 History Allergies Allergy/AdvReac Type Severity Reaction Status Date / Time No Known Allergies Allergy Verified 11/14/22 09:46 Physical Exam Vitals: Vital Signs Temp Pulse Pulse Resp BP BP Pulse Ox 11/15/22 07:00 97.8 F 76 17 132/48 93 L 11/15/22 02:00 97.7 F 76 15 115/63 92 L 11/14/22 20:00 97.4 F L 72 15 131/79 95 11/14/22 13:06 97.4 F L 73 16 127/62 95 11/14/22 12:15 82 18 118/81 96 11/14/22 11:00 84 20 113/78 95 11/14/22 10:30 84 20 111/80 95 11/14/22 10:00 86 20 133/75 95 11/14/22 09:50 85 16 133/75 94 L 11/14/22 09:40 90 22 117/73 94 L 11/14/22 09:30 85 17 112/82 94 L 11/14/22 09:13 98 F 95 16 139/76 96 Intake and Output 11/14/22 11/15/22 11/15/22 22:59 06:59 14:59 Intake Total 340 Balance 340 Intake: Oral 340 Other: # Voids 1 2 Results 11/14/22 09:55 11/14/22 09:55 Cardiac Enzymes 11/14/22 11/14/22 11/14/22 Range/Units 09:55 09:55 14:24 AST 26 (17-59) U/L Troponin I <0.012 <0.012 (0.000-0.034) ng/mL 11/14/22 Range/Units 18:16 AST (17-59) U/L Troponin I <0.012 (0.000-0.034) ng/mL Coagulation 11/14/22 Range/Units 09:55 PT 9.8 (9.0-12.0) sec APTT 24.7 (22.0-30.0) sec CBC 11/14/22 Range/Units 09:55 WBC 6.5 (3.8-10.6) k/uL RBC 4.37 (4.30-5.90) m/uL Hgb 13.0 (13.0-17.5) gm/dL Hct 39.3 (39.0-53.0) % Plt Count 261 (150-450) k/uL Comprehensive Metabolic Panel 11/14/22 Range/Units 09:55 Sodium 136 L (137-145) mmol/L Potassium 4.4 (3.5-5.1) mmol/L Chloride 102 (98-107) mmol/L Carbon Dioxide 21 L (22-30) mmol/L BUN 17 (9-20) mg/dL Creatinine 1.20 (0.66-1.25) mg/dL Glucose 145 H (74-99) mg/dL Calcium 9.0 (8.4-10.2) mg/dL AST 26 (17-59) U/L ALT 21 (4-49) U/L Alkaline Phosphatase 112 (38-126) U/L Total Protein 6.8 (6.3-8.2) g/dL Albumin 3.9 (3.5-5.0) g/dL Current Medications Generic Name Dose Route Start Last Admin Trade Name Freq PRN Reason Stop Dose Admin Hydrocodone Bitart/Acetaminophen 1 each 11/14/22 17:02 11/15/22 08:49 Hydrocodone/Apap 10-325mg 1 Each Tab PO 1 each Q6H PRN Administration Moderate Pain (Scale 4 to 6) Albuterol Sulfate 2.5 mg 11/14/22 20:00 11/15/22 03:13 Albuterol Nebulized 2.5 Mg/3 Ml INHALATION Not Given RT-BID YULIA Aspirin 81 mg 11/14/22 17:30 11/15/22 08:03 Aspirin 81 Mg PO 81 mg DAILY YULIA Administration Atorvastatin Calcium 80 mg 11/14/22 21:00 11/14/22 19:47 Atorvastatin 80 Mg Tab PO 80 mg HS YULIA Administration Cyclobenzaprine HCl 7.5 mg 11/14/22 17:02 Cyclobenzaprine 5 Mg Tab PO TID PRN Muscle Spasm Heparin Sodium (Porcine) 5,000 unit 11/14/22 17:30 11/15/22 08:03 Heparin Sodium,Porcine/Pf 5,000 Unit/0.5 Ml Syringe SQ 5,000 unit Q8HR YULIA Administration Dobutamine HCl/Dextrose 500 mg 250 mls @ 26.127 mls/hr 11/15/22 07:50 / IV Solution IV 11/15/22 11:50 .Q9H35M PRN Per Protocol Protocol 10 MCG/KG/MIN Isosorbide Mononitrate 60 mg 11/14/22 17:30 11/15/22 08:03 Isosorbide Mononitrate Er 60 Mg Tab.Er.24h PO 60 mg QAM YULIA Administration Lidocaine HCl 1 applic 11/14/22 17:02 Lidocaine 4% Cream 5 Gm Tube TOPICAL TID PRN Pain Loratadine 10 mg 11/15/22 09:00 11/15/22 08:03 Loratadine 10 Mg Tab PO 10 mg DAILY YULIA Administration Melatonin 10 mg 11/14/22 23:15 11/14/22 23:23 Melatonin 5 Mg Tablet PO 10 mg HS YULIA Administration Naloxone HCl 0.2 mg 11/14/22 12:21 Naloxone 0.4 Mg/Ml 1 Ml Vial IV Q2M PRN Opioid Reversal Nicotine 1 patch 11/14/22 14:00 11/14/22 14:12 Nicotine 21mg/24hr Patch TRANSDERM 1 patch DAILY YULIA Administration Pantoprazole Sodium 40 mg 11/14/22 21:00 11/14/22 19:48 Pantoprazole 40 Mg Tablet PO 40 mg HS YULIA Administration Pregabalin 150 mg 11/14/22 21:00 11/15/22 08:02 Pregabalin 75 Mg Cap PO 150 mg BID YULIA Administration Tamsulosin HCl 0.4 mg 11/14/22 21:00 11/15/22 08:03 Tamsulosin 0.4 Mg Cap.Er.24h PO 0.4 mg BID YULIA Administration Trazodone HCl 50 mg 11/14/22 21:00 11/14/22 19:48 Trazodone Hcl 50 Mg Tab PO 50 mg HS YULIA Administration Intake and Output 11/14/22 11/15/22 11/15/22 22:59 06:59 14:59 Intake Total 340 Balance 340 Intake: Oral 340 Other: # Voids 1 2 11/14/22 09:55 11/14/22 09:55
[2022-11-15] MEDS: NICOTINE 21MG/24HR PATCH TRANSDERM SCH (10:43)
[2022-11-15 10:53] LABS: Basophils # (A) 0.03 X 10*3/uL (0.00-0.10); Basophils % (A) 0.5 %; Eosinophils # (A) 0.32 X 10*3/uL (0.04-0.35); Eosinophils % (A) 5.7 %; HCT 38.7 % (39.6-50.0); HGB 12.3 g/dL (13.0-17.0); Immature Grans, Automated 0.4 %; Lymphocytes # (A) 1.68 X 10*3/uL (0.90-5.00); MCH 29.9 pg (27.0-32.0); MCHC 31.8 g/dL (32.0-37.0); MCV 94.2 fL (80.0-97.0); Mean Platelet Volume 9.7 fL (9.5-12.2); Monocytes % (A) 7.1 %; NRBC Per 100 WBC 0 /100 WBCS (0.0-0.0); Neutrophils # (A) 3.15 X 10*3/uL (1.80-7.70); Neutrophils % (A) 56.3 %; Platelet Count 255 X 10*3/uL (140-440); RBC 4.11 X 10*6/uL (4.40-5.60); RDW 15.8 % (11.5-14.5)
[2022-11-15 11:08] LABS: African American GFR (CKD) 65.2 (60.0-200.0); Anion Gap 8.4 mmol/L (10.00-18.00); BUN/Creat Ratio 12.06 Ratio (12.00-20.00); Blood Urea Nitrogen 15.2 mg/dL (9.0-27.0); Calcium 8.8 mg/dL (8.7-10.3); Carbon Dioxide 25.3 mmol/L (20.0-27.5); Non-African American GFR(CKD) 56.2 (60.0-200.0); Potassium 4.4 mmol/L (3.5-5.5)
--- NOTE | 2022-11-15 11:37 | CA ---
Dobutamine Stress Echocardiogram Report Matthieu Thomas Age: 72 Gender: M : 1950 Exam Date: 11/15/2022 09:26 Exam Location: [place] Stress Ordering Physician: Hussein Howell DO ([email or web address]) Referring Physician: DARRIN, Supervisor [employer]: TANI Technologist: Ht (in): 66 Wt (lb): 192 Procedure CPT: Indication: ree: chest pain ICD-9 Codes: Rhythm: Patient History: Cardiac Medications: Medications in past 24 hours: Contrast: Total Dose (mL): Stress Results Protocol: Dobutamine Peak Dose (???g/kg/min): 40 Duration (min:sec): Atropine:(mg) Target HR: 125 Double Product: [id number] Resting HR: 76 Resting BP: 121 / 84 Peak HR: 119 Peak BP: 146 / 119 Max Predicted HR: 147 81 % Max Predicted HR Stress Summary: BP Response: Reason for Termination: DIRECTED PER LUGGAGE [employer]ER Cardiac Symptoms: NO SYMPTOMS ECG Analysis Resting EKG: Stress EKG: Arrhythmia: Echo Analysis Base Echo Analysis: Low Echo Anaylsis: Peak Echo Analysis: Recovery Echo: MEASUREMENTS (Male/Female) Normal Values CONCLUSIONS Patient underwent dobutamine stress echo with infusion of dobutamine into Stage 5 for a total of 18 minutes. Patient's maximum heart rate was 119 which represented 80 % age-predicted maximum heart rate. Stress EKG portion: At baseline patient's EKG showed normal sinus rhythm, normal axis, no significant ST or T wave abnormalities. At peak dobutamine infusion, EKG showed no significant change from baseline. Stress echo portion: 2-D echocardiogram was performed in the parasternal long, personal short, apical 2 and apical four-chamber views at rest, low-dose, peak infusion and in recovery. At baseline, echocardiogram showed left ventricular ejection fraction 55% without wall motion abnormalities. With peak infusion, echocardiogram shows improvement in left ventricular ejection fraction, increase contractility, decrease in left ventricular end systolic dimension without wall motion abnormalities consistent with a normal response to dobutamine. Conclusions: 1. Technically inadequate stress test given inability to reach 85% maximum predicted heart rate however at 80% maximum predicted heart rate, normal stress EKG and echo response to dobutamine infusion without any evidence of inducible ischemia. Dr. Hussein Howell DO (Electronically Signed) Final Date: 15 Nov 2022 11:36
--- NOTE | 2022-11-15 12:45 | P.PN ---
Subjective Progress Note Date: 11/15/22 72-year-old male patient with known history of COPD and previous history of coronary artery disease, presented to the emergency department this morning because of chest pain. The patient started having chest pain this morning. The pain is located over the left anterior chest without any radiation. He took nitroglycerin at home without any improvement and he decided to come into the hospital. He is known to have coronary artery disease and he has undergone previous coronary stenting. Note that the patient had an abnormal troponin, normal blood work with a BUN of 17 and a creatinine of 1.2, CBC was essentially within normal limits. ProBNP was 86. Chest x-ray was consistent with COPD with questionable right lower lobe posterior segment infiltrate. There was also background COPD. The patient was given a CT angiogram and there is an opacity seen in the right middle lobe measuring 4.6 x 2.8 cm in size. Note that this abnormality was also present on a previous CAT scan of the chest and the findings of essentially unchanged based on a comparing CAT scan of the chest from 02/05/2022. Going back to the earlier CAT scan from 04/04/2019, the patient had chronic infiltrative changes and scarring in the right middle lobe area with pleural scarring. Similar findings are also seen on the CAT scan of the chest from 10/29/2018.. No mediastinal lymphadenopathy. The aortic structure was within normal limits. There is no evidence of any filling defects. The EKG showed a normal sinus rhythm. Nonspecific changes were seen without any ST segment elevation or depression. On a separate note, the patient is known to have seizure disorder, hypertension hyperlipidemia and chronic back pain and the patient has a pain stimulator to the back along with degenerative disc disease and chronic back pain. He has undergone cardiac catheterization 2018 revealing a patent stent in the diagonal branch and the circumflex. He has a chronically occluded RCA, borderline significant lesion in the proximal LAD taken off the diagonal branch. The fractional flow reserve was adequate in the LAD and no intervention was done. Echocardiogram from 02/03/2022 was within normal limits. On today's evaluation of 11/15/2022, the patient is stable. The patient has a cardiology evaluation and the patient is currently free of any chest pain. The patient underwent a cardiac stress test today. Awaiting final results from cardiology. I mentioned earlier that the right middle lobe opacity is most l ikely post inflammatory scar/rounded atelectasis and no further workup is needed in that regard. He is also known to have COPD. On his blood work, his white cell count of 5.6 with a hemoglobin 12.3, electrolytes are all stable. Troponins are negative 3. Objective - Vital Signs Vital signs: Vital Signs Temp 97.8 F 11/15/22 07:00 Pulse 76 11/15/22 08:00 Resp 17 11/15/22 08:00 BP 132/48 11/15/22 07:00 Pulse Ox 93 L 11/15/22 07:00 FiO2 Intake & Output 11/14/22 11/15/22 11/15/22 18:59 06:59 18:59 Intake Total 340 Balance 340 Weight 87.09 kg Intake: Oral 340 Other: Voiding Method Toilet # Voids 1 2 - Exam The patient appeared well nourished and normally developed. Vital signs as documented. Head exam is unremarkable. No scleral icterus or corneal arcus noted. Neck is without jugular venous distension, thyromegaly, or carotid bruits. Carotid upstrokes are brisk bilaterally. Lungs are diminished and there is some few scattered expiratory wheezes upon forceful extremity maneuvers. She'll crackles in the lung bases. Otherwise within normal limits. Breath sounds equal and symmetrical. Cardiac exam reveals the PMI to be normally sized and situated. Rhythm is regular. First and second heart sounds normal. No murmurs, rubs or gallops. Abdominal exam reveals normal bowel sounds, no masses, no organomegaly and no aortic enlargement. Extremities are nonedematous and both femoral and pedal pulses are normal.Examination of the skin revealed no evidence of significant rashes, suspicious appearing nevi or other concerning lesions. Neurologically the patient is awake and alert and there is no focal neurological deficits. 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 This is very unlikely to be malignant and I doubt any active pneumonitis at this point. COPD with chronic exertional dyspnea Chest pain on that investigation. Normal EKG. Normal troponins Coronary artery disease with previous coronary stenting as mentioned above Hypertension Hyperlipidemia Diverticulosis Chronic back pain and the patient has a pain stimulator in place History of seizure disorder Diverticulosis BPH Carpal tunnel disease Plan Free of any chest pain and awaiting the results of the cardiac stress test. If negative, the patient can be discharged home. Troponins were negative I already commented on the right middle lung capacity Right middle lobe opacities is an area of postinflammatory scar/atelectasis at that goes back to 2019. Extremely unlikely to be malignant. Doubt pneumonia We'll follow
[2022-11-15 15:13] VITALS: BP 103/62; PULSE 89; TEMP 97.6
--- NOTE | 2022-11-15 16:33 | P.DS ---
Providers Date of admission: 11/14/22 12:21 Expected date of discharge: 11/15/22 Attending physician: Ilene Franks Consults: 11/14/22 12:21 Consult Physician Urgent Consulting Provider: Chloe Lau Consult Reason/Comments: lung mass Do you want consulting provider notified?: Yes Consult Physician Urgent Consulting Provider: [facility] Consult Reason/Comments: chest pain, hx ascad Do you want consulting provider notified?: Yes Primary care physician: Ilene Franks [place] [facility] Course: Diagnosis on discharge: Episode of chest pain, patient is admitted to telemetry floor, cardiology consultation requested Right middle lobe opacity, pulmonary consultation was requested Underlying history of hypertension Underlying history of hyperlipidemia Underlying history of coronary artery disease with previous history of angioplasty and stent placement Underlying history of COPD Underlying history of seizure disorder Underlying history of chronic back pain Underlying history of diverticulosis Underlying history of benign prostatic hypertrophy Continued tobacco use Hospital course: Matthieu Thomas, is a 72-year-old male who presented to [facility] emergency room with a chief complaint of chest pain, patient describes a pressure sensation in the left side of his chest he took 3 nitroglycerin at home without improvement in his chest pain he decided to come to emergency room. He was evaluated in the emergency room vital examination on presentation revealed a temperature of 98 pulse 95 respirations 16 blood pressure 139/76 pulse ox 96% on room air Laboratory data revealed a white blood count of 6.5 hemoglobin 13.0 platelet count 261 sodium 136 potassium 4.4 chloride 102 CO2 21 BUN 17 creatinine 1.2 troponin level less than 0.012 Testing in the emergency room revealed chest x-ray done in the emergency room revealed posterior right lower lobe infiltrate, EKG revealed sinus rhythm with nonspecific T-wave abnormality, CT angiogram of the chest revealed right middle lobe consolidation, no evidence of pulmonary embolism no evidence of aortic dissection Patient was admitted to medical floor for further evaluation and treatment On 11/15/2022 patient was seen and examined on the telemetry floor he is alert and oriented 3 in no apparent distress he denies any complaints there is no fever or chills no headache or dizziness no chest pain no shortness of breath no cough no nausea or vomiting no abdominal pain no diarrhea and no blood in the stools. He underwent a stress test today which was negative. he was evaluated by cardiology and was cleared for discharge. Patient was given a prescription for NicoDerm patches and was counseled in length in regard to smoking cessation. he will be followed in our office within 1 week Patient Condition at Discharge: Serious Plan - Discharge Summary New Discharge Prescriptions: No Action Aspirin 81 mg PO DAILY #30 chew Atorvastatin [Lipitor] 80 mg PO HS HYDROcodone/APAP 10-325MG [Cleves 10-325] 1 tab PO Q6H PRN PRN Reason: Pain Omeprazole 20 mg PO HS Nitroglycerin 0.4 mg SL Q5M PRN PRN Reason: Chest Pain Isosorbide Mononitrate ER [Imdur] 60 mg PO QAM Tamsulosin [Flomax] 0.4 mg PO BID Pregabalin [Lyrica] 150 mg PO BID Cyclobenzaprine HCl 7.5 mg PO TID PRN PRN Reason: Muscle Spasm Cetirizine HCl [Zyrtec] 10 mg PO DAILY Albuterol Inhaler [Ventolin Hfa Inhaler] 2 puff INHALATION RT-BID traZODone HCL [Desyrel] 50 mg PO HS Lidopro 4% 1 applic TOPICAL TID PRN PRN Reason: Pain Discharge Medication List Aspirin 81 mg PO DAILY #30 chew 06/24/18 [Rx] Atorvastatin [Lipitor] 80 mg PO HS 10/29/18 [History] HYDROcodone/APAP 10-325MG [Cleves 10-325] 1 tab PO Q6H PRN 02/13/19 [History] Nitroglycerin 0.4 mg SL Q5M PRN 02/13/19 [History] Omeprazole 20 mg PO HS 02/13/19 [History] Isosorbide Mononitrate ER [Imdur] 60 mg PO QAM 02/19/19 [History] Cetirizine HCl [Zyrtec] 10 mg PO DAILY 10/20/21 [History] Cyclobenzaprine HCl 7.5 mg PO TID PRN 10/20/21 [History] Tamsulosin [Flomax] 0.4 mg PO BID 10/20/21 [History] Albuterol Inhaler [Ventolin Hfa Inhaler] 2 puff INHALATION RT-BID 11/14/22 [History] Lidopro 4% 1 applic TOPICAL TID PRN 11/14/22 [History] Pregabalin [Lyrica] 150 mg PO BID 11/14/22 [History] traZODone HCL [Desyrel] 50 mg PO HS 11/14/22 [History] Follow up Appointment(s)/Referral(s): Ilene Franks MD [Primary Care Provider] - 1-2 days
== END 2022-11-15 17:00 | disposition home or self-care (01) ==
LOC: EC 09:11 → 6NMEDSUR 12:21
PROVIDERS: ADMIT Internal Medicine; ATTEND Internal Medicine
DX: R07.89 Other chest pain (principal); R79.89 Other specified abnormal findings of blood chemistry; I25.10 Atherosclerotic heart disease of native coronary artery without angina pectoris; I25.82 Chronic total occlusion of coronary artery; R91.8 Other nonspecific abnormal finding of lung field; I10 Essential (primary) hypertension; E78.5 Hyperlipidemia, unspecified; N40.0 Benign prostatic hyperplasia without lower urinary tract symptoms; J44.9 Chronic obstructive pulmonary disease, unspecified; G40.909 Epilepsy, unspecified, not intractable, without status epilepticus; K57.90 Diverticulosis of intestine, part unspecified, without perforation or abscess without bleeding; G56.00 Carpal tunnel syndrome, unspecified upper limb; M19.90 Unspecified osteoarthritis, unspecified site; G89.29 Other chronic pain; M54.9 Dorsalgia, unspecified; I25.2 Old myocardial infarction; F17.200 Nicotine dependence, unspecified, uncomplicated; Z79.82 Long term (current) use of aspirin; Z79.899 Other long term (current) drug therapy; Z95.5 Presence of coronary angioplasty implant and graft; Z87.01 Personal history of pneumonia (recurrent); Z96.82 Presence of neurostimulator; Z90.49 Acquired absence of other specified parts of digestive tract; Z98.890 Other specified postprocedural states; Z80.0 Family history of malignant neoplasm of digestive organs; Z80.1 Family history of malignant neoplasm of trachea, bronchus and lung; Z82.49 Family history of ischemic heart disease and other diseases of the circulatory system; Z71.6 Tobacco abuse counseling
CPT/HCPCS: 96372 ×2; 96374; 99285; 36415; 93005; 93351; 83880; 80053; 80048; 83690; 83735; 84484; 85025 ×2; 85610; 85730; 71046; 71275; G0378 ×2; S4990 ×2; J1250; J2270; Q9967; J1644 ×2

== ENCOUNTER 2022-12-29 07:31 | Day surgery (SDC) | payer MEDICARE, OTHER ==
[2022-12-29 08:58] VITALS: RESP 18; TEMP 97.4
--- NOTE | 2022-12-29 10:10 | CT ---
EXAMINATION TYPE: CT lumbar spine w con, [place] myelogram lumbosacral DATE OF EXAM: 12/29/2022 9:54 AM HISTORY: Lower extremity pain and numbness Informed consent was obtained and all the patient's questions were answered. The L3-L4 level was loc alized under fluoroscopy. Standard sterile technique was utilized as well as appropriate local anest hesia 1% Lidocaine and sodium bicarbonate. Spinal needle was introduced into the thecal sac under fl uoroscopic guidance and 10 ml of Omni 300 was injected. The patient tolerated the procedure well and left the department in stable condition. CT myelography is to follow. IMPRESSION: Successful myelography lumbar spine EXAMINATION TYPE: CT lumbar spine w con, [place] myelogram lumbosacral DATE OF EXAM: 12/29/2022 COMPARISON: 05/01/2020 HISTORY: History of lumbar fusion. CT DLP: 1447.1 mGycm Automated exposure control for dose reduction was used. CT of the lumbar spine was performed following myelography. Bone and soft tissue window settings ar e submitted as well as coronal and sagittal reconstructions. T12-L1: Stable anterolisthesis T12 on L1 measuring 5 mm. Vacuum disc noted. Posterior disc bulge with constriction of the thecal sac and mild central stenosis. There is bilateral neural foraminal encroa chment. Severe facet joint arthropathy. L1-L2: There is evidence of previous fusion. Posterior osseous ridging results in a disc endplate com plex and effacement of the ventral thecal sac. Changes of decompressive laminectomy. There is effacem ent of the ventral thecal sac without evidence for stenosis. No left foraminal encroachment is seen. L2-L3: There is evidence of vacuum disc with posterior disc bulge and surrounding disc endplate compl ex. Effacement of the ventral thecal sac with probable surrounding granulation tissue. Borderline laz tral stenosis. Bilateral foraminal encroachment. L3-L4: Decompressive laminectomy noted. Pedicular screws in place. Alignment is within normal limits. No evidence for recurrent or residual disease. Spinal canal is capacious at this level. L4-L5: Decompressive laminectomy noted. Pedicular screws in place. Alignment is within normal limits. No evidence for recurrent or residual disease. Spinal canal is capacious at this level. L5-S1: Severe degenerative disc disease L5-S1 with retrolisthesis of 5 mm. Fusion changes with pedicu lar screws in place. No central stenosis or herniation. Pedicular screws and stabilizing screws in pl hari. No fractures identified. Curvature convex to the left. IMPRESSION: 1. Multilevel degenerative disc disease with extensive postoperative change as discussed above. 2. Anterolisthesis of T12 on L1 posterior disc bulge and mild central stenosis. 3. Changes of fusion at L1-2 with mild central stenosis. 4. Varying degrees of foraminal encroachment.
[2022-12-29 12:47] VITALS: BP 122/71
[2022-12-29 13:17] VITALS: PULSE 74
== END 2022-12-29 13:18 | disposition home or self-care (01) ==
LOC: RADPROMAIN 07:31
PROVIDERS: ATTEND Orthopaedic Surgery
DX: M43.16 Spondylolisthesis, lumbar region (principal); M51.16 Intervertebral disc disorders with radiculopathy, lumbar region; M47.816 Spondylosis without myelopathy or radiculopathy, lumbar region; M48.061 Spinal stenosis, lumbar region without neurogenic claudication; Z98.1 Arthrodesis status; F17.200 Nicotine dependence, unspecified, uncomplicated; Z79.1 Long term (current) use of non-steroidal anti-inflammatories (NSAID); Z79.899 Other long term (current) drug therapy
CPT/HCPCS: 62304; 72132; Q9967

== ENCOUNTER 2023-05-01 06:36 | Inpatient (IN) | payer MEDICARE, OTHER ==
--- NOTE | 2023-04-30 14:38 | P.HPOR ---
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 have any further questions. Signed and authenticated by: Parveen Degroot [facility] [address] [address] This message is confidential, intended only for the named recipient(s) and may contain information that is privileged or exempt from disclosure under applicable law. If you are not the intended recipient(s), you are notified that the dissemination, distribution or copying of this information is strictly prohibited. If you received this message in error, please notify the sender then delete this message. Patient verbalizes understanding of the information discussed. The above note was initiated by Jennifer Walls, physician recording bilingual administrative assistant for Dr. Parveen Rivas. This note has been reviewed by Dr. Rivas, who has made his personal changes and impressions for this document. CC: Ilene Franks M.D. # SIGNED BY Parveen Rivas ([facility] [place])04/26/2023 12:19PM Past Medical History Past Medical History: Asthma, Coronary Artery Disease (CAD), Chest Pain / Angina, COPD, CVA/TIA, Hyperlipidemia, Myocardial Infarction (CO), Osteoarthritis (OA), Pneumonia, Prostate Disorder, Seizure Disorder Additional Past Medical History / Comment(s): COPD. SOB ALWAYS. Coronary artery disease. Diverticulosis. Seizure disorder(NONE IN MANY YEARS) chronic back pain and the patient has astimulator. The patient also has degenerative disc disease and chronic back pain. He suffers from BPH, carpal tunnel disease arrested several time at time heart attack may ahve had a cva at same time, blind in rt eye Last Myocardial Infarction Date:: 06/22/18 History of Any Multi-Drug Resistant Organisms: None Reported Past Surgical History: Adenoidectomy, Back Surgery, Cholecystectomy, Heart Catheterization With Stent, Orthopedic Surgery, Tonsillectomy Additional Past Surgical History / Comment(s): Multiple back surgeries including a pain stimulator in place/hardware, L knee surgery with hardware, L rotator cuff repair x 4/cadaver bone, colonoscopy Past Anesthesia/Blood Transfusion Reactions: No Reported Reaction Date of Last Stent Placement:: 06/22/18 Smoking Status: Current every day smoker - Past Family History Father Family Medical History: Cancer Additional Family Medical History / Comment(s): Liver cancer. Mother Additional Family Medical History / Comment(s): Brain aneurysm Sister(s) Family Medical History: Cancer Additional Family Medical History / Comment(s): Lung cancer Brother(s) Family Medical History: No Reported History Family Family Medical History: Unable to Obtain Medications and Allergies Home Medications Medication Instructions Recorded Confirmed Type Aspirin 81 mg PO DAILY #30 chew 06/24/18 04/26/23 Rx Atorvastatin [Lipitor] 80 mg PO HS 10/29/18 04/26/23 History HYDROcodone/APAP 10-325MG [Roslyn 1 tab PO Q6H PRN 02/13/19 04/26/23 History 10-325] Nitroglycerin 0.4 mg SL Q5M PRN 02/13/19 04/26/23 History Omeprazole 20 mg PO HS 02/13/19 04/26/23 History Isosorbide Mononitrate ER [Imdur] 60 mg PO QAM 02/19/19 04/26/23 History Cetirizine HCl [Zyrtec] 10 mg PO DAILY 10/20/21 04/26/23 History Cyclobenzaprine HCl 7.5 mg PO TID PRN 10/20/21 04/26/23 History Tamsulosin [Flomax] 0.4 mg PO BID 10/20/21 04/26/23 History Albuterol Inhaler [Ventolin Hfa 2 puff INHALATION RT-BID 11/14/22 04/26/23 History Inhaler] Lidopro 4% 1 applic TOPICAL TID PRN 11/14/22 04/26/23 History Pregabalin [Lyrica] 150 mg PO BID 11/14/22 04/26/23 History traZODone HCL [Desyrel] 50 mg PO HS 11/14/22 04/26/23 History Allergies Allergy/AdvReac Type Severity Reaction Status Date / Time No Known Allergies Allergy Verified 04/26/23 10:06 Physical Examination Osteopathic Statement: *. No significant issues noted on an osteopathic structural exam other than those noted in the History and Physical/Consult.
[2023-05-01] MEDS ORDERED: LACTATED RINGERS 1,000 ML IV ONE ×4 (07:00→15:05)
[2023-05-01] MEDS ORDERED: ONDANSETRON 4 MG/2 ML VIAL ONE ×2 (07:15→08:59)
[2023-05-01] MEDS ORDERED: DEXAMETHASONE SOD PHOSPHATE 4 MG/ML 1 ML VIAL IVP ONE (07:37)
[2023-05-01] MEDS ORDERED: LIDOCAINE 1% (10MG/ML) FOR IV START INTRADERMA PRN (07:41)
[2023-05-01] MEDS ORDERED: DEXAMETHASONE SOD PHOSPHATE 4 MG/ML 1 ML VIAL IV ONE (07:41)
[2023-05-01] MEDS ORDERED: ONDANSETRON 4 MG/2 ML VIAL IVP ONE (07:41)
[2023-05-01] MEDS ORDERED: MIDAZOLAM 2 MG/2 ML VIAL IV PRN (07:41)
[2023-05-01] MEDS ORDERED: MIDAZOLAM 2 MG/2 ML VIAL IVP ONE (07:46)
[2023-05-01] MEDS ORDERED: TRANEXAMIC 1,000 MG/100ML-NACL 1,000 MG in SALINE 1 100ML.BAG IVPB PRN (08:39)
[2023-05-01] MEDS ORDERED: TRANEXAMIC 1,000 MG/100ML-NACL PREMIX BAG ONE (08:59)
[2023-05-01] MEDS ORDERED: NEOSTIGMINE 1 MG/ML 10 ML VIAL ONE (08:59)
[2023-05-01] MEDS ORDERED: PHENYLEPHRINE-0.9% NACL SYG 1,000 MCG/10 ML SYRINGE ONE (08:59)
[2023-05-01] MEDS ORDERED: ROCURONIUM 10 MG/ML (5 ML VIAL) IV ONE (08:59)
[2023-05-01] MEDS ORDERED: PHENYLEPHRINE 10 MG/ML VIAL ONE (08:59)
[2023-05-01] MEDS ORDERED: fentaNYL (PF) 50 MCG/ML 2 ML AMP ONE (08:59)
[2023-05-01] MEDS ORDERED: LIDOCAINE 4% LTA KIT (4 ML) TOPICAL ONE (08:59)
[2023-05-01] MEDS ORDERED: ALBUMIN HUMAN 5% (25gm) 500 ML VIAL IVPB ONE (08:59)
[2023-05-01] MEDS ORDERED: VASOPRESSIN 20 UNIT/ML 1 ML VIAL ONE (08:59)
[2023-05-01] MEDS ORDERED: LIDOCAINE 1% INJ 10MG/ML (20 ML MDV) ONE (08:59)
[2023-05-01] MEDS ORDERED: GLYCOPYRROLATE 0.2 MG/ML 2 ML VIAL ONE (08:59)
[2023-05-01] MEDS ORDERED: MIDAZOLAM 2 MG/2 ML VIAL ONE (08:59)
[2023-05-01] MEDS ORDERED: WATER FOR INJECTION, STERILE 10 ML VIAL IV ONE (08:59)
[2023-05-01] MEDS ORDERED: SUGAMMADEX SODIUM 200 MG/2 ML SDV IV ONE (08:59)
[2023-05-01] MEDS ORDERED: SUCCINYLCHOLINE CHLORIDE 200 MG/10 ML VIAL IV ONE (08:59)
[2023-05-01] MEDS ORDERED: PROPOFOL 10 MG/ML 20 ML VIAL IV ONE (08:59)
[2023-05-01] MEDS ORDERED: ePHEDrine 50 MG/ML 1 ML VIAL ONE (08:59)
[2023-05-01] MEDS ORDERED: VANCOMYCIN 1,000 MG VIAL MISCELLANE ONE ×2 (09:04→14:23)
[2023-05-01] MEDS ORDERED: THROMBIN (BOVINE) 5,000 UNIT VIAL TOPICAL ONE (09:04)
[2023-05-01] MEDS ORDERED: GELATIN SPONGE,ABSORB (LARGE) 1 EACH SPONGE TOPICAL ONE (09:04)
[2023-05-01] MEDS: LACTATED RINGERS 1,000 ML IV SCH (09:05)
[2023-05-01] MEDS ORDERED: SODIUM CHLORIDE 0.9% 1,000 ML IV ONE (11:48)
[2023-05-01 13:12] LABS: Basophils % (A) 0 %; Eosinophils # (A) 0.1 k/uL (0-0.7); Eosinophils % (A) 2 %; HCT 34.6 % (39.0-53.0); HGB 11.4 gm/dL (13.0-17.5); Lymphocytes # (A) 1.2 k/uL (1.0-4.8); Lymphocytes % (A) 18 %; MCH 30.9 pg (25.0-35.0); MCHC 32.8 g/dL (31.0-37.0); MCV 94.1 fL (80.0-100.0); Mean Platelet Volume 7.7; Monocytes # (A) 0.2 k/uL (0-1.0); Monocytes % (A) 3 %; Neutrophils % (A) 76 %; Platelet Count 253 k/uL (150-450); RBC 3.68 m/uL (4.30-5.90); RDW 15.5 % (11.5-15.5); WBC 6.5 k/uL (3.8-10.6)
[2023-05-01 13:25] LABS: African American GFR (CKD) 84 (>60 ml/min/1.73 sqM); Anion Gap 8 mmol/L; Blood Urea Nitrogen 19 mg/dL (9-20); Calcium 8.5 mg/dL (8.4-10.2); Carbon Dioxide 23 mmol/L (22-30); Chloride 107 mmol/L (98-107); Glucose 135 mg/dL (74-99); Non-African American GFR(CKD) 73 (>60 ml/min/1.73 sqM); Potassium 4.4 mmol/L (3.5-5.1); Sodium 138 mmol/L (137-145)
[2023-05-01] MEDS ORDERED: NOREPINEPHRINE 4 MG in SODIUM CHLORIDE 0.9% 250 ML IV SCH (13:30)
[2023-05-01] MEDS ORDERED: SENNOSIDES-DOCUSATE SODIUM 1 EACH TAB PO PRN (13:31)
[2023-05-01] MEDS ORDERED: MAGNESIUM HYDROXIDE 2,400 MG/30 ML CUP PO PRN (13:31)
[2023-05-01] MEDS ORDERED: HYDROcodone/APAP 10-325MG 1 EACH TAB PO PRN ×2 (13:33→20:37)
[2023-05-01] MEDS ORDERED: oxyCODONE-APAP 7.5-325MG 1 EACH TAB PO PRN (13:34)
[2023-05-01] MEDS ORDERED: GENTAMICIN 80 MG in SODIUM CHLORIDE 0.9% IRRIGATIO 3,000 ML IRRIGATION ONE (13:37)
[2023-05-01] MEDS ORDERED: ceFAZolin 3,000 MG in SODIUM CHLORIDE 0.9% IRRIGATIO 3,000 ML IRRIGATION ONE (13:38)
--- NOTE | 2023-05-01 14:45 | FL ---
Intraoperative/procedural fluoroscopic services were provided. Total fluoroscopy time is 1 minute 7 s econds seconds with a total of 12 submitted images to PACS. Please see the operative/procedural note for further details. DAP: 15.392 Gycm2
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
--- NOTE | 2023-05-01 15:33 | P.ANPRN ---
Procedure Note - Anesthesia - Invasive Line Right Central Line Time Out Performed: Yes Date of Procedure: 05/01/23 Time of Procedure: 08:01 Location of Patient: PreOp Preparation: Sterile Prep, Sterile Dressing Central Line Location: Internal Jugular Ultrasound Used: No Purpose - Visualization and Identification of Vasculature: No Image Stored and Saved: No Narrative: Central line placement per sterile protocol utilized.
[2023-05-01] MEDS: HYDROmorphone 0.5 MG/0.5 ML SYRINGE IVP PRN ×3 (15:54→22:04)
[2023-05-01] MEDS ORDERED: NOREPINEPHRINE 4 MG in SODIUM CHLORIDE 0.9% 250 ML IV ONE ×4 (15:58)
--- NOTE | 2023-05-01 16:22 | XR ---
EXAMINATION TYPE: XR chest 1V confirm line [facility] DATE OF EXAM: 05/01/2023 4:15 PM COMPARISON: Chest radiographs from 11/14/2022 TECHNIQUE: XR chest 1V confirm line [facility] Portable AP radiograph of the chest. CLINICAL INDICATION:Male, 72 years old with history of central line; FINDINGS: Lungs/Pleura: No pleural effusion pneumothorax. Bibasilar linear atelectasis. Pulmonary vascularity: Unremarkable. Heart/mediastinum: Cardiomediastinal silhouette is unremarkable. Musculoskeletal: Left shoulder arthroplasty. Post surgical changes of the thoracolumbar spine. Midlin e posterior back skin man. Other findings: None Lines/Tubes: Interval placement of right IJ central venous catheter distal tip at the superior cavoatrial junction . Suspected spinal drain. IMPRESSION: 1. Interval placement of right IJ central venous catheter distal tip at the superior cavoatrial junc tion. No pneumothorax. 2. Bibasilar linear atelectasis. 3. Postsurgical changes of the back.
[2023-05-01 17:05] LABS: Glucose,Whole Blood 187 mg/dL (70-110)
[2023-05-01] MEDS ORDERED: NALOXONE 0.4 MG/ML 1 ML VIAL IV PRN (17:43)
[2023-05-01] MEDS: CYCLOBENZAPRINE 10 MG TAB PO PRN (18:42)
[2023-05-01] MEDS: HYDROmorphone 1 MG/ML 1 ML SYRINGE IVP PRN (18:42)
--- NOTE | 2023-05-01 18:59 | CT ---
EXAMINATION TYPE: CT thor lumbar spine wo con DATE OF EXAM: 05/01/2023 COMPARISON: Thoracic and lumbar CT HISTORY: s/p revision [id number] decompr fusion CT DLP: 2253.2 mGycm Automated exposure control for dose reduction was used. Contrast: None Technique: Axial images 3 mm thick sections. Reconstructed images in the coronal and sagittal planes. FINDINGS: There is a minimal kyphosis centered at L1-L2. There is degenerative disc changes present L5-S1 and L 2-3 with a disc spacer, L1-2 with loss of disc height. Degenerative disc changes present T12-L1 and T 9-10 right T8-9 and T7-8 disc space narrowing is present T5-6 disc space narrowing is present. There are no acute fractures are evident. There is fixation pedicle screws T10 extending to the pelvis. Dis c spacers are present L4-5, L2-3 No spinal canal stenosis present. Decompression laminectomies been performed. There is facet hypertro phy T12-L1 on the right foraminal stenosis. IMPRESSION: 1. MULTILEVEL FIXATION WITHIN THE LOWER THORACIC AND THROUGHOUT THE LUMBAR SPINE.
[2023-05-01] MEDS: ACETAMINOPHEN TAB 325 MG TAB PO SCH (19:44)
[2023-05-01] MEDS ORDERED: ALBUTEROL HFA INHALER INHALATION SCH (20:00)
[2023-05-01 20:17] LABS: Glucose,Whole Blood 168 mg/dL (70-110)
[2023-05-01] MEDS: traZODone HCL 50 MG TAB PO SCH (20:24)
[2023-05-01] MEDS: ATORVASTATIN 80 MG TAB PO SCH (20:25)
[2023-05-01] MEDS: TAMSULOSIN 0.4 MG CAP.ER.24H PO SCH (20:25)
[2023-05-01] MEDS: PANTOPRAZOLE 40 MG TABLET PO SCH (20:25)
[2023-05-01] MEDS: PREGABALIN 75 MG CAP PO SCH (20:25)
[2023-05-02] MEDS: ACETAMINOPHEN TAB 325 MG TAB PO SCH ×5 (00:02→23:57)
[2023-05-02] MEDS: CYCLOBENZAPRINE 10 MG TAB PO PRN ×3 (02:00→20:39)
[2023-05-02] MEDS ORDERED: CALCIUM CARBONATE 500 MG CHEWABLE PO PRN ×2 (02:29→02:31)
[2023-05-02 03:57] LABS: Basophils % (A) 0 %; Eosinophils % (A) 0 %; HCT 26.2 % (39.0-53.0); Lymphocytes # (A) 0.9 k/uL (1.0-4.8); Lymphocytes % (A) 9 %; MCH 31.5 pg (25.0-35.0); MCHC 34.1 g/dL (31.0-37.0); MCV 92.4 fL (80.0-100.0); Mean Platelet Volume 9.6; Monocytes # (A) 0.7 k/uL (0-1.0); Monocytes % (A) 7 %; Neutrophils # (A) 8.6 k/uL (1.3-7.7); Neutrophils % (A) 84 %; Platelet Count 199 k/uL (150-450); RBC 2.83 m/uL (4.30-5.90); RDW 15.6 % (11.5-15.5); WBC 10.3 k/uL (3.8-10.6)
[2023-05-02 04:04] LABS: ALT 26 U/L (4-49); AST 53 U/L (17-59); African American GFR (CKD) 89 (>60 ml/min/1.73 sqM); Albumin 3.1 g/dL (3.5-5.0); Alkaline Phosphatase 81 U/L (38-126); Anion Gap 6 mmol/L; Blood Urea Nitrogen 18 mg/dL (9-20); Calcium 8.1 mg/dL (8.4-10.2); Carbon Dioxide 24 mmol/L (22-30); Chloride 105 mmol/L (98-107); Glucose 109 mg/dL (74-99); HGB 8.9 gm/dL (13.0-17.5); Non-African American GFR(CKD) 77 (>60 ml/min/1.73 sqM); Potassium 4.2 mmol/L (3.5-5.1); Sodium 135 mmol/L (137-145); Total Bilirubin 0.4 mg/dL (0.2-1.3); Total Protein 5.3 g/dL (6.3-8.2)
[2023-05-02] MEDS: ALBUTEROL NEBULIZED 2.5 MG/3 ML INHALATION SCH ×2 (04:16→20:10)
[2023-05-02] MEDS: LACTATED RINGERS 1,000 ML IV SCH (06:04)
--- NOTE | 2023-05-02 07:38 | P.PN ---
Subjective Progress Note Date: 05/02/23 Principal diagnosis: 1. Adjacent segment disease T12-L1, L2-3 2. Flat back syndrome 3. Severe stenosis 4. Lower extremity weakness, bilateral Patient seen and examined this morning. Patient was resting comfortably in bed, assisted patient with nursing staff to edge of bed to sit for breakfast. Patient tolerated activity well. Patient does report moderate pain mid back with increased activity. Discussed pain management, medications will be reviewed. Surgical incision to the thoracolumbar spine is well approximated with man intact. Small amount of shadowing noted on dressing. Hemovac present to the right of the incision with a 10 mL output overnight. New surgical dressing has been applied. Prescription for TLSO brace has been placed in chart. Instructed patient that he does not need bracing order to work with physical therapy. Encouraged patient to be up in chair for all meals. Jimenez catheter can be discontinued once patient is up and about. We will continue to monitor patient hemoglobin. Vital signs are currently stable. No acute concerns at this time. Objective - Vital Signs Vital signs: Vital Signs Temp 98.7 F 05/02/23 04:00 Pulse 79 05/02/23 06:00 Resp 12 05/02/23 06:00 BP 138/71 05/02/23 06:00 Pulse Ox 97 05/02/23 06:00 FiO2 Intake & Output 05/01/23 05/01/23 05/02/23 06:59 18:59 06:59 Intake Total 3802 485 Output Total 1075 1354 Balance 2727 -869 Weight 83.6 kg 83.7 kg Intake: IV 3802 340 Lactated Ringers 1,000 ml 240 @ 20 mls/hr IV .Q24H [facility] Rx#:[id number] ceFAZolin 2 gm In Sodium 100 Chloride 0.9% 50 ml @ 100 mls/hr IVPB ONCE PRN Rx# :[id number] Oral 145 Output: Drainage 10 Back 10 Urine 675 1344 Estimated Blood Loss 400 Other: Voiding Method Indwelling Catheter Indwelling Catheter ABP, PAP, CO, CI - Last Documented Arterial Blood Pressure 160/65 - Exam Physical Examination General: The patient is awake and alert, in no acute distress Skin: Skin is warm and dry with no obvious rashes or lesions. Surgical incision to the thoracolumbar spine, edges are well approximated with man intact. Hemovac present to the right of the incision, 10 mL output overnight. Eye: Pupils are equal, round and reactive to light, extra-ocular movements are intact; there is normal conjunctiva bilaterally. Neck: The neck is supple, there is no tenderness and ROM intact. Cardiovascular: There is a regular rate and rhythm. No murmur, rub or gallop is appreciated. Respiratory: Lungs are clear to auscultation, respirations are non-labored, breath sounds are equal. Patient is currently on 3 L nasal cannula Gastrointestinal: Soft, non-distended, non-tender abdomen. Back: There is mild tenderness to palpation in the paralumbar and parathoracic region due to surgical procedure. There is no obvious deformity . Musculoskeletal: ROM limited secondary to pain and stiffness from surgical procedure. Muscle strength in all major muscle groups of bilateral upper extremities 5/5, bilateral lower extremities 4/5. Neurological: CN 2-12 intact. There are no obvious motor or sensory deficits. Movement and coordination equal and intact. Sensory exam to light touch intact C5-T1 and intact from L2-S1. Reflexes 2/4 in bilateral upper and lower extremities. Negative Hoffmans, babinski, and clonus signs. Psychiatric: Cooperative, appropriate mood & affect, normal judgment. - Labs CBC & Chem 7: 05/02/23 03:26 05/02/23 03:26 Labs: Abnormal Lab Results - Last 24 Hours (Table) 04/24/23 05/01/23 05/01/23 Range/Units 10:55 10:30 10:30 RBC 3.68 L (4.30-5.90) m/uL Hgb 11.4 L (13.0-17.5) gm/dL Hct 34.6 L (39.0-53.0) % RDW (11.5-15.5) % Neutrophils # (1.3-7.7) k/uL Lymphocytes # (1.0-4.8) k/uL Sodium (137-145) mmol/L Glucose 135 H (74-99) mg/dL POC Glucose (mg/dL) (70-110) mg/dL Calcium (8.4-10.2) mg/dL Total Protein (6.3-8.2) g/dL Albumin (3.5-5.0) g/dL Crossmatch See Detail 05/01/23 05/01/2323 Range/Units 17:04 20:16 03:26 RBC (4.30-5.90) m/uL Hgb (13.0-17.5) gm/dL Hct (39.0-53.0) % RDW (11.5-15.5) % Neutrophils # (1.3-7.7) k/uL Lymphocytes # (1.0-4.8) k/uL Sodium 135 L (137-145) mmol/L Glucose 109 H (74-99) mg/dL POC Glucose (mg/dL) 187 H 168 H (70-110) mg/dL Calcium 8.1 L (8.4-10.2) mg/dL Total Protein 5.3 L (6.3-8.2) g/dL Albumin 3.1 L (3.5-5.0) g/dL Crossmatch 05/02/23 Range/Units 03:26 RBC 2.83 L (4.30-5.90) m/uL Hgb 8.9 L D (13.0-17.5) gm/dL Hct 26.2 L (39.0-53.0) % RDW 15.6 H (11.5-15.5) % Neutrophils # 8.6 H (1.3-7.7) k/uL Lymphocytes # 0.9 L (1.0-4.8) k/uL Sodium (137-145) mmol/L Glucose (74-99) mg/dL POC Glucose (mg/dL) (70-110) mg/dL Calcium (8.4-10.2) mg/dL Total Protein (6.3-8.2) g/dL Albumin (3.5-5.0) g/dL Crossmatch Assessment and Plan Assessment: Postop day 1: Revision [id number] decompression and fusion 1. Adjacent segment disease T12-L1, L2-3 2. Flat back syndrome 3. Severe stenosis 4. Lower extremity weakness, bilateral 5. Postop anemiaexpected outcome from surgery Plan: -Appreciate qm consultant and team management. -Activity: Ambulate QID, OOB all meals, up and about, limit lifting bending twisting to less than 5 lbs. Use walker or cane if needed for stability. -Daily PT/OT, increase ambulation strength and balance. -Brace when up and about, not needed in bed or chair -Continue to monitor hemoglobin -Prescription for TLSO brace has been placed in chart -Pain control: Adequate at this time -Meds: reviewed -GI ppx: senna, Miralax -DC jimenez when up and about, bedside commode if needed -DVT PPX: OK to restart Heparin tonight -Hygiene: Shower today. Maintain dressing clean and dry. Meticulous cleaning after BMs away from the incision site -Drains: Maintain for now. Continue to monitor and record output q shift. -Encourage IS 10x/hr -Dispo: Anticipate discharge home in the next 48 hours with homecare *I reviewed and discussed this case with my attending Dr. Rivas, whom has reviewed this chart and films and is in agreement with assessment and plan of care as outlined above. I have personally seen and examined the patient, performed the documentation and the assessment and plan as written. Number of minutes spent on the visit: 30m.
[2023-05-02] MEDS: oxyCODONE-APAP 7.5-325MG 1 EACH TAB PO PRN ×3 (07:48→22:23)
--- NOTE | 2023-05-02 08:54 | P.CONS ---
History of Present Illness - Reason for Consult Consult date: 05/02/23 Medical management Requesting physician: Parveen Rivas - Chief Complaint low back pain - History of Present Illness This is a 72-year-old male patient who presented for an elective thoracic 10- pelvis decompression and fusion with Dr. Arnold on 05/01/2023. Patient has history of chronic back pain and lower extremity weakness with failed conservative management. Additional medical history includes asthma, CAD, COPD, CVA, hyperlipidemia, [place], osteoarthritis, prostate disorder, seizure disorder and ongoing nicotine dependence. Patient underwent extensive procedure including L2 to L3, L4-L5 intradiscal 3 column colostomy for decompression deformity correction, L2 to L3, L4 to L5 posterior lateral and interbody fusion, T10 to L2 posterior lateral instrumental fusion, instrumentation attachment pelvis insertion of interbody device decompression laminectomy completed with complete facetectomy and for foraminotomy. Decompressive laminectomy partial facetectomy and foraminotomy of T11 to L2. Patient was transferred to ICU postoperatively in stable condition. Today patient is currently sitting up in bed. Patient complains of some discomfort. Denies chest pain or shortness of breath. Denies nausea vomiting or diarrhea. Denies any urinary burning or frequency. Temp 97.9, heart rate 87, respiratory rate 22, blood pressure 135/84 with a pulse ox of 95% on 3 L. Review of Systems Please refer to HPI otherwise unremarkable Past Medical History Past Medical History: Asthma, Coronary Artery Disease (CAD), COPD, CVA/TIA, Hyperlipidemia, Myocardial Infarction ([place]), Osteoarthritis (OA), Pneumonia, Prostate Disorder, Respiratory Disorder, Seizure Disorder Additional Past Medical History / Comment(s): COPD/Asthma, SOB with streneous activity, Coronary artery disease, Diverticulosis. Seizure disorder (NONE IN MANY YEARS) Degenerative Disc Disease with Astimulator placeme. He suffers from BPH, carpal tunnel disease, arrested several time at time heart attack (2018) Pt reports he may have had a TIA/CVA (2019 or 2020), blind in rt eye and cataracts in Left eye Last Myocardial Infarction Date:: 06/22/18 History of Any Multi-Drug Resistant Organisms: None Reported Past Surgical History: Adenoidectomy, Back Surgery, Cholecystectomy, Heart Catheterization With Stent, Orthopedic Surgery, Tonsillectomy Additional Past Surgical History / Comment(s): Multiple back surgeries including a pain stimulator in place/hardware, L knee surgery with hardware, L rotator cuff repair x 4/cadaver bone, colonoscopy Past Anesthesia/Blood Transfusion Reactions: No Reported Reaction Date of Last Stent Placement:: 06/22/18 Past Psychological History: No Psychological Hx Reported Additional Psychological History / Comment(s): . Smoking Status: Former smoker Past Alcohol Use History: None Reported Additional Past Alcohol Use History / Comment(s): TRYING TO QUIT.Pt started smoking in 1958 and quit November of 2018. started again but hasn't had one since 04/23/23 Past Drug Use History: None Reported - Past Family History Father Family Medical History: Cancer Additional Family Medical History / Comment(s): Liver cancer. Mother Additional Family Medical History / Comment(s): Brain aneurysm Sister(s) Family Medical History: Cancer Additional Family Medical History / Comment(s): Lung cancer Brother(s) Family Medical History: No Reported History Family Family Medical History: Unable to Obtain Medications and Allergies Home Medications Medication Instructions Recorded Confirmed Type Aspirin 81 mg PO DAILY #30 chew 06/24/18 05/01/23 Rx Atorvastatin [Lipitor] 80 mg PO HS 10/29/18 05/01/23 History HYDROcodone/APAP 10-325MG [[place] 1 tab PO Q6H PRN 02/13/19 05/01/23 History 10-325] Nitroglycerin 0.4 mg SL Q5M PRN 02/13/19 05/01/23 History Omeprazole 20 mg PO HS 02/13/19 05/01/23 History Isosorbide Mononitrate ER [Imdur] 60 mg PO QAM 02/19/19 05/01/23 History Cetirizine HCl [Zyrtec] 10 mg PO DAILY 10/20/21 05/01/23 History Cyclobenzaprine HCl 7.5 mg PO TID PRN 10/20/21 05/01/23 History Tamsulosin [Flomax] 0.4 mg PO BID 10/20/21 05/01/23 History Albuterol Inhaler [Ventolin Hfa 2 puff INHALATION RT-BID 11/14/22 05/01/23 History Inhaler] Lidopro 4% 1 applic TOPICAL TID PRN 11/14/22 05/01/23 History Pregabalin [Lyrica] 150 mg PO BID 11/14/22 05/01/23 History traZODone HCL [Desyrel] 50 mg PO HS 11/14/22 05/01/23 History Allergies Allergy/AdvReac Type Severity Reaction Status Date / Time No Known Allergies Allergy Verified 05/01/23 07:09 Physical Exam Vitals: Vital Signs Temp Pulse Pulse Resp BP BP BP 05/02/23 08:00 97.9 F 87 22 135/84 05/02/23 07:00 80 9 L 137/78 05/02/23 06:00 79 12 138/71 05/02/23 05:00 75 12 128/74 05/02/23 04:00 98.7 F 75 16 124/80 05/02/23 03:00 79 15 124/73 05/02/23 02:00 75 16 129/76 05/02/23 01:00 73 14 122/72 05/02/23 00:10 75 16 122/72 05/02/23 00:00 97.3 F L 78 19 132/73 05/01/23 23:00 97.6 F 74 16 130/76 05/01/23 22:00 94.6 F L 73 14 132/78 05/01/23 21:00 70 18 127/82 05/01/23 20:00 94.0 F L 70 12 05/01/23 19:08 70 12 05/01/23 18:00 98.2 F 67 6 L 110/63 05/01/23 17:30 60 18 116/60 05/01/23 17:08 19 05/01/23 16:45 68 20 121/55 118/62 05/01/23 16:30 65 20 119/58 127/53 05/01/23 16:15 63 20 117/55 119/52 05/01/23 16:00 60 20 109/56 110/52 05/01/23 15:40 96.8 F L 70 20 102/62 106/50 Pulse Ox 05/02/23 08:00 92 L 05/02/23 07:00 96 05/02/23 06:00 97 05/02/23 05:00 95 05/02/23 04:00 95 05/02/23 03:00 96 05/02/23 02:00 96 05/02/23 01:00 97 05/02/23 00:10 100 05/02/23 00:00 97 05/01/23 23:00 95 05/01/23 22:00 95 05/01/23 21:00 95 05/01/23 20:00 93 L 05/01/23 19:08 95 05/01/23 18:00 95 05/01/23 17:30 95 05/01/23 17:08 89 L 05/01/23 16:45 99 05/01/23 16:30 98 05/01/23 16:15 98 05/01/23 16:00 98 05/01/23 15:40 98 Intake and Output 05/01/23 05/02/23 05/02/23 22:59 06:59 14:59 Intake Total 1235 350 270 Output Total 489 1140 125 Balance 746 -790 145 Intake: IV 1210 230 20 Lactated Ringers 1,000 ml 60 180 20 @ 20 mls/hr IV .Q24H [facility] Rx#:[id number] ceFAZolin 2 gm In Sodium 50 50 Chloride 0.9% 50 ml @ 100 mls/hr IVPB ONCE PRN Rx# :[id number] Oral 25 120 250 Output: Drainage 10 0 Back 10 0 Urine 489 1130 125 Other: Voiding Method Indwelling Catheter Indwelling Catheter Weight 83.6 kg 83.7 kg ABP, PAP, CO, CI - Last 8 Hours Arterial Blood Pressure 153/73 Arterial Blood Pressure 162/66 Arterial Blood Pressure 160/65 Arterial Blood Pressure 156/64 Arterial Blood Pressure 152/64 Arterial Blood Pressure 148/60 Arterial Blood Pressure 140/59 Arterial Blood Pressure 144/58 Head normocephalic Neck supple Lungs clear to auscultation bilaterally no wheezing or crackles Heart regular rate and rhythm S1-S2, no rub or gallop Abdomen is soft nontender nondistended positive bowel sounds no hepatosplenomegaly Extremities no edema Neuro alert and orientated to 3 Back incision dressing clean dry and intact accordion drain in place Results CBC & Chem 7: 05/02/23 03:26 05/02/23 03:26 Labs: Abnormal Lab Results - Last 24 Hours (Table) 04/24/23 05/01/23 05/01/23 Range/Units 10:55 10:30 10:30 RBC 3.68 L (4.30-5.90) m/uL Hgb 11.4 L (13.0-17.5) gm/dL Hct 34.6 L (39.0-53.0) % RDW (11.5-15.5) % Neutrophils # (1.3-7.7) k/uL Lymphocytes # (1.0-4.8) k/uL Sodium (137-145) mmol/L Glucose 135 H (74-99) mg/dL POC Glucose (mg/dL) (70-110) mg/dL Calcium (8.4-10.2) mg/dL Total Protein (6.3-8.2) g/dL Albumin (3.5-5.0) g/dL Crossmatch See Detail 05/01/23 05/01/23 05/02/23 Range/Units 17:04 20:16 03:26 RBC (4.30-5.90) m/uL Hgb (13.0-17.5) gm/dL Hct (39.0-53.0) % RDW (11.5-15.5) % Neutrophils # (1.3-7.7) k/uL Lymphocytes # (1.0-4.8) k/uL Sodium 135 L (137-145) mmol/L Glucose 109 H (74-99) mg/dL POC Glucose (mg/dL) 187 H 168 H (70-110) mg/dL Calcium 8.1 L (8.4-10.2) mg/dL Total Protein 5.3 L (6.3-8.2) g/dL Albumin 3.1 L (3.5-5.0) g/dL Crossmatch 05/02/23 Range/Units 03:26 RBC 2.83 L (4.30-5.90) m/uL Hgb 8.9 L D (13.0-17.5) gm/dL Hct 26.2 L (39.0-53.0) % RDW 15.6 H (11.5-15.5) % Neutrophils # 8.6 H (1.3-7.7) k/uL Lymphocytes # 0.9 L (1.0-4.8) k/uL Sodium (137-145) mmol/L Glucose (74-99) mg/dL POC Glucose (mg/dL) (70-110) mg/dL Calcium (8.4-10.2) mg/dL Total Protein (6.3-8.2) g/dL Albumin (3.5-5.0) g/dL Crossmatch Assessment and Plan Assessment: 1. 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 Patient is currently postop day 1 2. Postop anemia. We'll continue to monitor 3. History of coronary artery disease 4. History of COPD 5. History of seizure disorder 6. History of diverticulosis 7. History of BPH 8. History of essential hypertension 9. History of hyperlipidemia 10. Ongoing nicotine dependence. Patient educated at length about the importance of complete smoking cessation DVT prophylaxis per surgical services Repeat labs ordered Thank you for this consultation we'll continue to follow patient closely throughout stay Time with Patient: Greater than 30 (Greater than 60% of the total time spent in counseling and coordination of care)
[2023-05-02] MEDS: ASPIRIN 81 MG PO SCH (09:09)
[2023-05-02] MEDS: LORATADINE 10 MG TAB PO SCH (09:09)
[2023-05-02] MEDS: PREGABALIN 75 MG CAP PO SCH ×2 (09:09→20:39)
[2023-05-02] MEDS: ISOSORBIDE MONONITRATE ER 60 MG TAB.ER.24H PO SCH (09:09)
[2023-05-02] MEDS: SENNOSIDES-DOCUSATE SODIUM 1 EACH TAB PO SCH (09:09)
[2023-05-02] MEDS: TAMSULOSIN 0.4 MG CAP.ER.24H PO SCH ×2 (09:10→20:40)
[2023-05-02] MEDS: HYDROcodone/APAP 10-325MG 1 EACH TAB PO PRN ×2 (09:24→17:40)
[2023-05-02] MEDS: HYDROmorphone 0.5 MG/0.5 ML SYRINGE IVP PRN (14:21)
[2023-05-02 16:07] LABS: Basophils % (A) 0 %; Eosinophils % (A) 0 %; HCT 25.7 % (39.0-53.0); HGB 8.4 gm/dL (13.0-17.5); Lymphocytes # (A) 1.1 k/uL (1.0-4.8); Lymphocytes % (A) 12 %; MCH 30.6 pg (25.0-35.0); MCHC 32.7 g/dL (31.0-37.0); MCV 93.7 fL (80.0-100.0); Mean Platelet Volume 9.6; Monocytes # (A) 0.4 k/uL (0-1.0); Monocytes % (A) 5 %; Neutrophils # (A) 7.6 k/uL (1.3-7.7); Neutrophils % (A) 83 %; Platelet Count 167 k/uL (150-450); RBC 2.74 m/uL (4.30-5.90); RDW 15.7 % (11.5-15.5); WBC 9.2 k/uL (3.8-10.6)
[2023-05-02 16:10] LABS: INR 1.1 (<1.2); Prothrombin Time 11.6 sec (10.0-12.5)
[2023-05-02] MEDS: HYDROmorphone 1 MG/ML 1 ML SYRINGE IVP PRN (18:48)
[2023-05-02] MEDS: PANTOPRAZOLE 40 MG TABLET PO SCH (20:40)
[2023-05-02] MEDS: ATORVASTATIN 80 MG TAB PO SCH (20:40)
[2023-05-02] MEDS: traZODone HCL 50 MG TAB PO SCH (20:41)
[2023-05-03] MEDS: HYDROmorphone 1 MG/ML 1 ML SYRINGE IVP PRN (06:15)
[2023-05-03] MEDS: ACETAMINOPHEN TAB 325 MG TAB PO SCH ×3 (06:16→18:20)
[2023-05-03] MEDS: ALBUTEROL NEBULIZED 2.5 MG/3 ML INHALATION SCH (07:51)
--- NOTE | 2023-05-03 08:03 | P.PN ---
Subjective Progress Note Date: 05/03/23 Principal diagnosis: 1. Adjacent segment disease T12-L1, L2-3 2. Flat back syndrome 3. Severe stenosis 4. Lower extremity weakness, bilateral Patient seen and examined this morning. Patient is sitting up in chair for breakfast. Patient does report moderate pain mid back with increased activity, this is controlled with current regimen. Surgical incision to the thoracolumbar spine, dressing is CDI. Hemovac present to the right of the incision with 80 mL output overnight. Awaiting delivery of TLSO brace. Encouraged patient to be up in chair for all meals. Jimenez catheter can be discontinued today. We will co ntinue to monitor hemoglobin. Vital signs are currently stable. No acute concerns at this time. Objective - Vital Signs Vital signs: Vital Signs Temp 98.7 F 05/03/23 04:15 Pulse 79 05/03/23 07:00 Resp 10 L 05/03/23 07:00 BP 133/68 05/03/23 07:00 Pulse Ox 90 L 05/03/23 07:00 FiO2 Intake & Output 05/02/23 05/03/23 05/03/23 18:59 06:59 18:59 Intake Total 1270 370 Output Total 770 1245 Balance 500 -875 Weight 88.9 kg Intake: IV 220 220 Lactated Ringers 1,000 ml 220 220 @ 20 mls/hr IV .Q24H [facility] Rx#:[id number] Oral 1050 150 Output: Drainage 0 80 Back 0 80 Urine 770 1165 Other: Voiding Method Indwelling Catheter Indwelling Catheter ABP, PAP, CO, CI - Last Documented Arterial Blood Pressure 150/58 - Exam Physical Examination General: The patient is awake and alert, in no acute distress Skin: Skin is warm and dry with no obvious rashes or lesions. Surgical incision to the thoracolumbar spine, dressing is CDI. Hemovac present to the right of the incision, 80 mL output overnight. Eye: Pupils are equal, round and reactive to light, extra-ocular movements are intact; there is normal conjunctiva bilaterally. Neck: The neck is supple, there is no tenderness and ROM intact. Cardiovascular: There is a regular rate and rhythm. No murmur, rub or gallop is appreciated. Respiratory: Lungs are clear to auscultation, respirations are non-labored, breath sounds are equal. Gastrointestinal: Soft, non-distended, non-tender abdomen. Back: There is mild tenderness to palpation in the paralumbar and parathoracic region due to surgical procedure. There is no obvious deformity . Musculoskeletal: ROM limited secondary to pain and stiffness from surgical procedure. Muscle strength in all major muscle groups of bilateral upper extremities 5/5, bilateral lower extremities 4/5. Neurological: CN 2-12 intact. There are no obvious motor or sensory deficits. Movement and coordination equal and intact. Sensory exam to light touch intact C5-T1 and intact from L2-S1. Reflexes 2/4 in bilateral upper and lower extremities. Negative Hoffmans, babinski, and clonus signs. Psychiatric: Cooperative, appropriate mood & affect, normal judgment. - Labs CBC & Chem 7: 05/02/23 15:42 05/02/23 03:26 Labs: Abnormal Lab Results - Last 24 Hours (Table) 04/24/23 05/02/23 05/02/23 Range/Units 10:55 09:16 15:42 RBC 2.74 L (4.30-5.90) m/uL Hgb 8.4 L (13.0-17.5) gm/dL Hct 25.7 L (39.0-53.0) % RDW 15.7 H (11.5-15.5) % Crossmatch See Detail See Detail Assessment and Plan Assessment: Postop day 2: Revision [id number] decompression and fusion 1. Adjacent segment disease T12-L1, L2-3 2. Flat back syndrome 3. Severe stenosis 4. Lower extremity weakness, bilateral 5. Postop anemiaexpected outcome from surgery Plan: -Appreciate [employer] consultant and team management. -Activity: Ambulate QID, OOB all meals, up and about, limit lifting bending twisting to less than 5 lbs. Use walker or cane if needed for stability. -Daily PT/OT, increase ambulation strength and balance. -Brace when up and about, not needed in bed or chair -Continue to monitor hemoglobin -Awaiting delivery of TLSO brace -Pain control: Adequate at this time -Meds: reviewed -GI ppx: senna, Miralax -DC jimenez catheter -DVT PPX: Heparin -Hygiene: Shower today. Maintain dressing clean and dry. Meticulous cleaning after BMs away from the incision site -Drains: Maintain for now. Continue to monitor and record output q shift. -Encourage IS 10x/hr -Dispo: PT is recommending [facility], Patient states he will discuss with CM *I reviewed and discussed this case with my attending Dr. Rivas, whom has reviewed this chart and films and is in agreement with assessment and plan of care as outlined above. I have personally seen and examined the patient, performed the documentation and the assessment and plan as written. Number of minutes spent on the visit: 20m.
[2023-05-03 08:13] LABS: HCT 26.6 % (39.0-53.0); HGB 8.9 gm/dL (13.0-17.5); MCH 31.3 pg (25.0-35.0); MCHC 33.5 g/dL (31.0-37.0); MCV 93.6 fL (80.0-100.0); Mean Platelet Volume 7.9; Platelet Count 174 k/uL (150-450); RBC 2.85 m/uL (4.30-5.90); RDW 15.8 % (11.5-15.5); WBC 8.8 k/uL (3.8-10.6)
[2023-05-03 08:29] LABS: African American GFR (CKD) 84 (>60 ml/min/1.73 sqM); Anion Gap 6 mmol/L; Blood Urea Nitrogen 16 mg/dL (9-20); Carbon Dioxide 26 mmol/L (22-30); Chloride 104 mmol/L (98-107); Glucose 111 mg/dL (74-99); Non-African American GFR(CKD) 73 (>60 ml/min/1.73 sqM); Sodium 136 mmol/L (137-145)
[2023-05-03] MEDS: ASPIRIN 81 MG PO SCH (08:34)
[2023-05-03] MEDS: PREGABALIN 75 MG CAP PO SCH ×2 (08:35→20:06)
[2023-05-03] MEDS: TAMSULOSIN 0.4 MG CAP.ER.24H PO SCH ×2 (08:35→20:07)
[2023-05-03] MEDS: SENNOSIDES-DOCUSATE SODIUM 1 EACH TAB PO SCH (08:40)
[2023-05-03] MEDS: LORATADINE 10 MG TAB PO SCH (08:40)
[2023-05-03] MEDS: HYDROcodone/APAP 10-325MG 1 EACH TAB PO PRN (08:40)
[2023-05-03] MEDS ORDERED: IPRATROPIUM-ALBUTEROL 3 ML NEB INHALATION PRN (09:52)
--- NOTE | 2023-05-03 10:26 | P.PN ---
Subjective Progress Note Date: 05/03/23 This is a 72-year-old male patient who presented for an elective thoracic 10- pelvis decompression and fusion with Dr. Arnold on 05/01/2023. Patient has history of chronic back pain and lower extremity weakness with failed conservative management. Additional medical history includes asthma, CAD, COPD, CVA, hyperlipidemia, [place], osteoarthritis, prostate disorder, seizure disorder and ongoing nicotine dependence. Patient underwent extensive procedure including L2 to L3, L4-L5 intradiscal 3 column colostomy for decompression deformity correction, L2 to L3, L4 to L5 posterior lateral and interbody fusion, T10 to L2 posterior lateral instrumental fusion, instrumentation attachment pelvis insertion of interbody device decompression laminectomy completed with complete facetectomy and for foraminotomy. Decompressive laminectomy partial facetectomy and foraminotomy of T11 to L2. Patient was transferred to ICU postoperatively in stable condition. Today patient is currently sitting up in bed. Patient complains of some discomfort. Denies chest pain or shortness of breath. Denies nausea vomiting or diarrhea. Denies any urinary burning or frequency. Temp 97.9, heart rate 87, respiratory rate 22, blood pressure 135/84 with a pulse ox of 95% on 3 L On 05/03/2033 patient is alert and oriented 3. Patient having increasing wheezing. Patient started on DuoNeb breathing treatments, chest x-ray ordered and pulmonary service is consulted. Also discussed case with Eulalia BENDER with Orthopedic surgical services okay to start heparin every 12 for DVT prophylaxis. Still waiting for TSLO brace to be delivered to bedside. PT OT services are following. Patient denies chest pain or shortness of breath. Patient denies nausea vomiting or diarrhea. Patient denies any urinary burning or frequency. Hemoglobin improving to 8.9 we'll continue to monitor Objective - Vital Signs Vital signs: Vital Signs Temp 98.7 F 05/03/23 04:15 Pulse 87 05/03/23 09:00 Resp 15 05/03/23 09:00 BP 119/59 05/03/23 08:00 Pulse Ox 92 L 05/03/23 09:00 FiO2 Intake & Output 05/02/23 05/03/23 05/03/23 18:59 06:59 18:59 Intake Total 1270 370 Output Total 770 1245 Balance 500 -875 Weight 88.9 kg Intake: IV 220 220 Lactated Ringers 1,000 ml 220 220 @ 20 mls/hr IV .Q24H [facility] Rx#:[id number] Oral 1050 150 Output: Drainage 0 80 Back 0 80 Urine 770 1165 Other: Voiding Method Indwelling Catheter Indwelling Catheter ABP, PAP, CO, CI - Last Documented Arterial Blood Pressure 150/58 - Exam Head normocephalic Neck supple Lungs clear to auscultation bilaterally no wheezing or crackles Heart regular rate and rhythm S1-S2, no rub or gallop Abdomen is soft nontender nondistended positive bowel sounds no hepatosple nomegaly Extremities no edema Neuro alert and orientated to 3 Back incision dressing clean dry and intact accordion drain in place - Labs CBC & Chem 7: 05/03/23 07:40 05/03/23 07:40 Labs: Abnormal Lab Results - Last 24 Hours (Table) 04/24/23 05/02/23 05/02/23 Range/Units 10:55 09:16 15:42 RBC 2.74 L (4.30-5.90) m/uL Hgb 8.4 L (13.0-17.5) gm/dL Hct 25.7 L (39.0-53.0) % RDW 15.7 H (11.5-15.5) % Sodium (137-145) mmol/L Glucose (74-99) mg/dL Crossmatch See Detail See Detail 05/03/23 05/03/23 Range/Units 07:40 07:40 RBC 2.85 L (4.30-5.90) m/uL Hgb 8.9 L (13.0-17.5) gm/dL Hct 26.6 L (39.0-53.0) % RDW 15.8 H (11.5-15.5) % Sodium 136 L (137-145) mmol/L Glucose 111 H (74-99) mg/dL Crossmatch Assessment and Plan Assessment: 1. 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 Patient is currently postop day 1 2. Postop anemia. We'll continue to monitor 3. History of coronary artery disease 4. history of COPD 5. History of seizure disorder 6. History of diverticulosis 7. History of BPH 8. History of essential hypertension 9. History of hyperlipidemia 10. Ongoing nicotine dependence. Patient educated at length about the importance of complete smoking cessation DVT prophylaxis heparin per surgical services recommendation Thank you for this consultation we'll continue to follow patient closely throughout stay DuoNeb breathing treatments, chest x-ray and pulmonary service is consulted, encouraged IS
--- NOTE | 2023-05-03 10:36 | XR ---
EXAMINATION TYPE: XR chest 1V portable DATE OF EXAM: 05/03/2023 COMPARISON: 05/01/2023 INDICATION: Increased congestion TECHNIQUE: Single frontal view of the chest is obtained. FINDINGS: The heart size is normal. The pulmonary vasculature is normal. Right lower lobe infiltrate is present. Findings are increasing over the interval. Surgical skin man are evident. Right central venous catheter is present with the tip in the super ior vena cava region. Left shoulder prosthesis is present. Some mild platelike atelectasis is likely at the left lung base. IMPRESSION: 1. Bibasilar infiltrates greater on the right. Correlate for atelectasis. Mild pneumonia should be co nsidered. 2. Right central venous catheter tip in the right atrium region
--- NOTE | 2023-05-03 11:01 | P.CNPUL ---
History of Present Illness Consult date: 05/03/23 Reason for consult: dyspnea, COPD History of present illness: This is a 72-year-old male patient was currently in the intensive care unit and the patient was admitted to the ICU because of some postoperative hypotension. The patient underwent a revision of a T10 to pelvis decompression and fusion. He did have chronic back pain and severe stenosis and lower extremity weakness bilaterally. Is postop hypotension was treated with fluids. He did not require any pressors. He did encounter some postoperative anemia which is an expected outcome of surgery. The patient currently is on 3 L of oxygen by nasal cannula. Hemoglobin is at 8.9. He is hemodynamically stable. Renal function stable. Electrodes are within normal limits. The CAT scan of the thoracic and lumbar spine that was done on 05/01/2023 showed postsurgical changes. There is evidence of multilevel fixation involving the lower thoracic and lumbar spine. No evidence of any spinal canal stenosis present based on the CAT scan images. Noted the patient had a estimated blood loss of 750 mL. In terms of his respiratory status, the patient is known to have COPD. Is known to have chronic scarring in the lung bases more so on the right. His chest x-ray is consistent with COPD and chronic scarring in the right lung base. He also has a total left shoulder replacement. The triple-lumen catheter is in a good location in the superior vena cava. No reported aspiration. No significant cough or sputum production. The most recent CAT scan of his chest that was done on 11/14/2022 was reviewed. The patient had chronic scarring changes in the right apex. He also had some persistent consolidation of the right lung base which has been stable upon comparison with an earlier CAT scan of the chest from September 2022. His echocardiogram showed a preserved LV function with an ejection fraction of 55%.. The patient denies having any shortness of breath. Using incentive spirometer and is pulling approximately 1500. He is still having issues with pain and he is on Dilaudid and NOrco Past Medical History Past Medical History: Asthma, Coronary Artery Disease (CAD), COPD, CVA/TIA, Hyperlipidemia, Myocardial Infarction ([place]), Osteoarthritis (OA), Pneumonia, Prostate Disorder, Respiratory Disorder, Seizure Disorder Additional Past Medical History / Comment(s): COPD/Asthma, SOB with streneous activity, Coronary artery disease, Diverticulosis. Seizure disorder (NONE IN MANY YEARS) Degenerative Disc Disease with Astimulator placeme. He suffers from BPH, carpal tunnel disease, arrested several time at time heart attack (2018) Pt reports he may have had a TIA/CVA (2019 or 2020), blind in rt eye and cataracts in Left eye Last Myocardial Infarction Date:: 06/22/18 History of Any Multi-Drug Resistant Organisms: None Reported Past Surgical History: Adenoidectomy, Back Surgery, Cholecystectomy, Heart Catheterization With Stent, Orthopedic Surgery, Tonsillectomy Additional Past Surgical History / Comment(s): Multiple back surgeries including a pain stimulator in place/hardware, L knee surgery with hardware, L rotator cuff repair x 4/cadaver bone, colonoscopy Past Anesthesia/Blood Transfusion Reactions: No Reported Reaction Date of Last Stent Placement:: 06/22/18 Past Psychological History: No Psychological Hx Reported Additional Psychological History / Comment(s): . Smoking Status: Former smoker Past Alcohol Use History: None Reported Additional Past Alcohol Use History / Comment(s): TRYING TO QUIT.Pt started s moking in 1957 and quit November of 2018. started again but hasn't had one since 04/23/23 Past Drug Use History: None Reported - Past Family History Father Family Medical History: Cancer Additional Family Medical History / Comment(s): Liver cancer. Mother Additional Family Medical History / Comment(s): Brain aneurysm Sister(s) Family Medical History: Cancer Additional Family Medical History / Comment(s): Lung cancer Brother(s) Family Medical History: No Reported History Family Family Medical History: Unable to Obtain Medications and Allergies Home Medications Medication Instructions Recorded Confirmed Type Aspirin 81 mg PO DAILY #30 chew 06/24/18 05/01/23 Rx Atorvastatin [Lipitor] 80 mg PO HS 10/29/18 05/01/23 History HYDROcodone/APAP 10-325MG [[place] 1 tab PO Q6H PRN 02/13/19 05/01/23 History 10-325] Nitroglycerin 0.4 mg SL Q5M PRN 02/13/19 05/01/23 History Omeprazole 20 mg PO HS 02/13/19 05/01/23 History Isosorbide Mononitrate ER [Imdur] 60 mg PO QAM 02/19/19 05/01/23 History Cetirizine HCl [Zyrtec] 10 mg PO DAILY 10/20/21 05/01/23 History Cyclobenzaprine HCl 7.5 mg PO TID PRN 10/20/21 05/01/23 History Tamsulosin [Flomax] 0.4 mg PO BID 10/20/21 05/01/23 History Albuterol Inhaler [Ventolin Hfa 2 puff INHALATION RT-BID 11/14/22 05/01/23 History Inhaler] Lidopro 4% 1 applic TOPICAL TID PRN 11/14/22 05/01/23 History Pregabalin [Lyrica] 150 mg PO BID 11/14/22 05/01/23 History traZODone HCL [Desyrel] 50 mg PO HS 11/14/22 05/01/23 History Allergies Allergy/AdvReac Type Severity Reaction Status Date / Time No Known Allergies Allergy Verified 05/01/23 07:09 Physical Exam Vitals: Vital Signs Temp Pulse Resp BP Pulse Ox 05/03/23 10:00 78 12 129/62 92 L 05/03/23 09:00 87 15 92 L 05/03/23 08:01 90 05/03/23 08:00 90 16 119/59 93 L 05/03/23 07:52 90 05/03/23 07:00 79 10 L 133/68 90 L 05/03/23 06:00 79 13 121/72 93 L 05/03/23 05:00 75 12 134/79 92 L 05/03/23 04:15 98.7 F 80 18 92 L 05/03/23 03:45 76 12 125/66 95 05/03/23 03:00 77 14 128/64 91 L 05/03/23 02:00 80 13 124/72 92 L 05/03/23 01:00 85 11 L 115/66 92 L 05/03/23 00:00 98.3 F 83 17 108/61 93 L 05/02/23 23:00 82 14 111/60 95 05/02/23 22:00 83 11 L 114/58 91 L 05/02/23 21:00 85 14 137/65 90 L 05/02/23 20:20 96 05/02/23 20:10 96 05/02/23 20:00 99.5 F 98 8 L 139/89 90 L 05/02/23 19:00 112 H 27 H 122/61 05/02/23 18:00 77 12 107/64 93 L 05/02/23 17:00 74 10 L 111/60 92 L 05/02/23 16:00 77 10 L 111/63 92 L 05/02/23 15:00 82 10 L 108/58 90 L 05/02/23 14:00 80 15 112/57 92 L 05/02/23 13:00 81 16 125/74 93 L 05/02/23 12:00 97.9 F 85 21 121/71 93 L 05/02/23 11:00 75 18 127/67 93 L Intake and Output 05/02/23 05/03/23 05/03/23 22:59 06:59 14:59 Intake Total 410 290 Output Total 660 930 Balance -250 -640 Intake: IV 160 140 Lactated Ringers 1,000 ml 160 140 @ 20 mls/hr IV .Q24H [facility] Rx#:[id number] Oral 250 150 Output: Drainage 0 80 Back 0 80 Urine 660 850 Other: Voiding Method Indwelling Catheter Indwelling Catheter Weight 88.9 kg General: The patient is awake and alert, in no acute distress, the patient is c urrently on 2 L of oxygen by nasal cannula. The patient also has a triple-lumen catheter in his right IJ. Head exam was generally normal. There was no scleral icterus or corneal arcus. Mucous membranes were moist. Skin: Skin is warm and dry with no obvious rashes or lesions. Surgical incision to the thoracolumbar spine, edges are well approximated with man intact. Hemovac present to the right of the incision, 10 mL output overnight. Eye: Pupils are equal, round and reactive to light, extra-ocular movements are intact; there is normal conjunctiva bilaterally. Neck: The neck is supple, there is no tenderness and ROM intact. Cardiovascular: There is a regular rate and rhythm. No murmur, rub or gallop is appreciated. Respiratory: Lungs are clear to auscultation, respirations are non-labored, breath sounds are equal. Patient is currently on 3 L nasal cannula Gastrointestinal: Soft, non-distended, non-tender abdomen. Back: There is mild tenderness to palpation in the paralumbar and parathoracic region due to surgical procedure. There is no obvious deformity . Musculoskeletal: ROM limited secondary to pain and stiffness from surgical procedure. Muscle strength in all major muscle groups of bilateral upper extremities 5/5, bilateral lower extremities 4/5. Neurological: CN 2-12 intact. There are no obvious motor or sensory deficits. Movement and coordination equal and intact. Sensory exam to light touch intact C5-T1 and intact from L2-S1. Reflexes 2/4 in bilateral upper and lower extremities. Negative Hoffmans, babinski, and clonus signs. Psychiatric: Cooperative, appropriate mood & affect, normal judgment. Results - Laboratory Findings CBC and BMP: 05/03/23 07:40 05/03/23 07:40 PT/INR, D-dimer PT 11.6 sec (10.0-12.5) 05/02/23 15:42 INR 1.1 (<1.2) 05/02/23 15:42 Abnormal lab findings: Abnormal Labs 04/24/23 05/01/23 05/01/23 10:55 10:30 10:30 RBC 3.68 L Hgb 11.4 L Hct 34.6 L RDW Neutrophils # Lymphocytes # Sodium Glucose 135 H POC Glucose (mg/dL) Calcium Total Protein Albumin Crossmatch See Detail 05/01/23 05/01/23 05/02/23 17:04 20:16 03:26 RBC Hgb Hct RDW Neutrophils # Lymphocytes # Sodium 135 L Glucose 109 H POC Glucose (mg/dL) 187 H 168 H Calcium 8.1 L Total Protein 5.3 L Albumin 3.1 L Crossmatch 05/02/23 05/02/23 05/02/23 03:26 09:16 15:42 RBC 2.83 L 2.74 L Hgb 8.9 L D 8.4 L Hct 26.2 L 25.7 L RDW 15.6 H 15.7 H Neutrophils # 8.6 H Lymphocytes # 0.9 L Sodium Glucose POC Glucose (mg/dL) Calcium Total Protein Albumin Crossmatch See Detail 05/03/23 05/03/23 07:40 07:40 RBC 2.85 L Hgb 8.9 L Hct 26.6 L RDW 15.8 H Neutrophils # Lymphocytes # Sodium 136 L Glucose 111 H POC Glucose (mg/dL) Calcium Total Protein Albumin Crossmatch - Diagnostic Findings Chest x-ray: image reviewed Assessment and Plan Plan: T10 to pelvis decompression and fusion. The patient is postop day #2 Postoperative hypotension, recovered as the patient was assisted IV fluids. Estimated blood loss was about 750 mL intraoperatively Postoperative anemia, hemoglobin stable. Expected outcome of surgery. The p atpreet has not received any blood transfusion during this current admission. Hemoglobin is currently at 8.9 COPD with diffuse emphysema and chronic dyspnea and based on previous CAT scan imaging, the patient has a chronic scarring in the apices and the right midlung area. This is a chronic finding and it was seen on serial CAT scan of the chest that was done back in 2022 and the abnormality in the right lung and the right apex was also seen on previous CAT scan of the chest from 2019. I doubt a pneumonia at this point in time coronary artery disease diverticulosis hypertension hyperlipidemia Chronic back pain and the patient had a pain stimulator in place. The stimulator has been removed BPH Plan Keep the patient oxygen at 3 L Incentive spirometer Bronchodilators and the patient was started on DuoNeb updrafts No need for any antibiotics at this point in time Aspiration precautions Dilaudid for pain control Increase mobility TLSO back brace Heparin subcu portably prophylaxis Resume all medications May transferred out of the intensive care unit today
[2023-05-03] MEDS: IPRATROPIUM-ALBUTEROL 3 ML NEB INHALATION SCH ×3 (11:24→22:03)
[2023-05-03] MEDS: ISOSORBIDE MONONITRATE ER 60 MG TAB.ER.24H PO SCH (11:46)
[2023-05-03] MEDS: oxyCODONE-APAP 7.5-325MG 1 EACH TAB PO PRN ×3 (11:59→20:06)
[2023-05-03] MEDS: LACTATED RINGERS 1,000 ML IV SCH (18:25)
[2023-05-03] MEDS: traZODone HCL 50 MG TAB PO SCH (20:07)
[2023-05-03] MEDS: ATORVASTATIN 80 MG TAB PO SCH (20:07)
[2023-05-03] MEDS: HEPARIN SODIUM,PORCINE 5,000 UNIT/ML 1 ML VIAL SQ SCH (20:07)
[2023-05-03] MEDS: PANTOPRAZOLE 40 MG TABLET PO SCH (20:07)
[2023-05-04] MEDS: LACTATED RINGERS 1,000 ML IV SCH (00:08)
[2023-05-04] MEDS: ACETAMINOPHEN TAB 325 MG TAB PO SCH ×5 (00:09→21:53)
[2023-05-04] MEDS: oxyCODONE-APAP 7.5-325MG 1 EACH TAB PO PRN ×4 (01:20→23:48)
[2023-05-04] MEDS: SENNOSIDES-DOCUSATE SODIUM 1 EACH TAB PO SCH (07:56)
[2023-05-04] MEDS: LORATADINE 10 MG TAB PO SCH (07:58)
[2023-05-04] MEDS: PREGABALIN 75 MG CAP PO SCH ×2 (07:58→20:58)
[2023-05-04] MEDS: ASPIRIN 81 MG PO SCH (07:59)
[2023-05-04] MEDS: CYCLOBENZAPRINE 10 MG TAB PO PRN (07:59)
[2023-05-04] MEDS: ISOSORBIDE MONONITRATE ER 60 MG TAB.ER.24H PO SCH (07:59)
[2023-05-04] MEDS: TAMSULOSIN 0.4 MG CAP.ER.24H PO SCH ×2 (07:59→20:58)
[2023-05-04] MEDS: HEPARIN SODIUM,PORCINE 5,000 UNIT/ML 1 ML VIAL SQ SCH ×2 (07:59→21:40)
--- NOTE | 2023-05-04 08:19 | P.PN ---
Subjective Progress Note Date: 05/04/23 Principal diagnosis: 1. Adjacent segment disease T12-L1, L2-3 2. Flat back syndrome 3. Severe stenosis 4. Lower extremity weakness, bilateral Patient seen and examined this morning. Patient is sitting up on the edge of the bed for breakfast. Pateint has been transferred to med/surg floor. Patient does report moderate pain mid back with increased activity. Surgical incision to the thoracolumbar spine, dressing is CDI. Hemovac present to the right of the incision with 250 mL output overnight. Awaiting delivery of TLSO brace. Encouraged patient to be up in chair for all meals. Vital signs are currently stable. No acute concerns at this time. Objective - Vital Signs Vital signs: Vital Signs Temp 97.6 F 05/04/23 07:13 Pulse 81 05/04/23 07:13 Resp 18 05/04/23 07:13 BP 124/72 05/04/23 07:13 Pulse Ox 93 L 05/04/23 07:13 FiO2 Intake & Output 05/03/23 05/04/23 05/04/23 18:59 06:59 18:59 Intake Total 300 Output Total 510 250 Balance -210 -250 Intake: IV 0 Lactated Ringers 1,000 ml 0 @ 20 mls/hr IV .Q24H [facility] Rx#:[id number] Oral 300 Output: Drainage 110 250 Back 110 250 Urine 400 Other: # Voids 3 ABP, PAP, CO, CI - Last Documented Arterial Blood Pressure 150/58 - Exam Physical Examination General: The patient is awake and alert, in no acute distress Skin: Skin is warm and dry with no obvious rashes or lesions. Surgical incision to the thoracolumbar spine, dressing is CDI. Hemovac present to the right of the incision, 250mL output overnight. Eye: Pupils are equal, round and reactive to light, extra-ocular movements are intact; there is normal conjunctiva bilaterally. Neck: The neck is supple, there is no tenderness and ROM intact. Cardiovascular: There is a regular rate and rhythm. No murmur, rub or gallop is appreciated. Respiratory: Lungs are clear to auscultation, respirations are non-labored, breath sounds are equal. Gastrointestinal: Soft, non-distended, non-tender abdomen. Back: There is mild tenderness to palpation in the paralumbar and parathoracic region due to surgical procedure. There is no obvious deformity . Musculoskeletal: ROM limited secondary to pain and stiffness from surgical procedure. Muscle strength in all major muscle groups of bilateral upper extremities 5/5, bilateral lower extremities 4/5. Neurological: CN 2-12 intact. There are no obvious motor or sensory deficits. Movement and coordination equal and intact. Sensory exam to light touch intact C5-T1 and intact from L2-S1. Reflexes 2/4 in bilateral upper and lower extremities. Negative Hoffmans, babinski, and clonus signs. Psychiatric: Cooperative, appropriate mood & affect, normal judgment. - Labs CBC & Chem 7: 05/03/23 07:40 05/03/23 07:40 Labs: Abnormal Lab Results - Last 24 Hours (Table) 05/02/23 05/03/23 05/03/23 Range/Units 09:16 07:40 07:40 RBC 2.85 L (4.30-5.90) m/uL Hgb 8.9 L (13.0-17.5) gm/dL Hct 26.6 L (39.0-53.0) % RDW 15.8 H (11.5-15.5) % Sodium 136 L (137-145) mmol/L Glucose 111 H (74-99) mg/dL Crossmatch See Detail Assessment and Plan Assessment: Postop day 3: Revision [id number] decompression and fusion 1. Adjacent segment disease T12-L1, L2-3 2. Flat back syndrome 3. Severe stenosis 4. Lower extremity weakness, bilateral 5. Postop anemiaexpected outcome from surgery Plan: -Appreciate coding consultant and team management. -Activity: Ambulate QID, OOB all meals, up and about, limit lifting bending twisting to less than 5 lbs. Use walker or cane if needed for stability. -Daily PT/OT, increase ambulation strength and balance. -Brace when up and about, not needed in bed or chair -Awaiting delivery of TLSO brace -Pain control: Adequate at this time -Meds: reviewed -GI ppx: senna, Miralax -DVT PPX: Heparin -Hygiene: Shower today. Maintain dressing clean and dry. Meticulous cleaning after BMs away from the incision site -Drains: Maintain for now. Continue to monitor and record output q shift. -Encourage IS 10x/hr -Dispo: PT is recommending [facility], Patient states he will discuss with CM *I reviewed and discussed this case with my attending Dr. Rivas, whom has reviewed this chart and films and is in agreement with assessment and plan of care as outlined above. I have personally seen and examined the patient, performed the documentation and the assessment and plan as written. Number of minutes spent on the visit: 20m.
[2023-05-04] MEDS: IPRATROPIUM-ALBUTEROL 3 ML NEB INHALATION SCH ×4 (09:36→20:34)
--- NOTE | 2023-05-04 10:32 | P.PN ---
Subjective Progress Note Date: 05/04/23 This is a 72-year-old male patient who presented for an elective thoracic 10- pelvis decompression and fusion with Dr. Arnold on 05/01/2023. Patient has history of chronic back pain and lower extremity weakness with failed conservative management. Additional medical history includes asthma, CAD, COPD, CVA, hyperlipidemia, [place], osteoarthritis, prostate disorder, seizure disorder and ongoing nicotine dependence. Patient underwent extensive procedure including L2 to L3, L4-L5 intradiscal 3 column colostomy for decompression deformity correction, L2 to L3, L4 to L5 posterior lateral and interbody fusion, T10 to L2 posterior lateral instrumental fusion, instrumentation attachment pelvis insertion of interbody device decompression laminectomy completed with complete facetectomy and for foraminotomy. Decompressive laminectomy partial facetectomy and foraminotomy of T11 to L2. Patient was transferred to ICU postoperatively in stable condition. Today patient is currently sitting up in bed. Patient complains of some discomfort. Denies chest pain or shortness of breath. Denies nausea vomiting or diarrhea. Denies any urinary burning or frequency. Temp 97.9, heart rate 87, respiratory rate 22, blood pressure 135/84 with a pulse ox of 95% on 3 L On 05/03/2033 patient is alert and oriented 3. Patient having increasing wheezing. Patient started on DuoNeb breathing treatments, chest x-ray ordered and pulmonary service is consulted. Also discussed case with Eulalia BENDER with Orthopedic surgical services okay to start heparin every 12 for DVT prophylaxis. Still waiting for TSLO brace to be delivered to bedside. PT OT services are following. Patient denies chest pain or shortness of breath. Patient denies nausea vomiting or diarrhea. Patient denies any urinary burning or frequency. Hemoglobin improving to 8.9 we'll continue to monitor On 05/04/2023 patient is alert and oriented 3. Patient has been moved out of the intensive care unit. Patient being followed by pulmonary services srinivas DuoNeb breathing treatments. Consult placed for possible inpatient rehab admis sammie. Current vital signs temp 97.6, heart rate 81, respiratory rate 18, blood pressure 124/72 with a pulse ox 93% on 3 L incentive spirometer encouraged. Lab work currently pending Objective - Vital Signs Vital signs: Vital Signs Temp 97.6 F 05/04/23 07:13 Pulse 80 05/04/23 09:51 Resp 18 05/04/23 07:13 BP 124/72 05/04/23 07:13 Pulse Ox 93 L 05/04/23 09:36 FiO2 Intake & Output 05/03/23 05/04/23 05/04/23 18:59 06:59 18:59 Intake Total 300 Output Total 510 250 Balance -210 -250 Intake: IV 0 Lactated Ringers 1,000 ml 0 @ 20 mls/hr IV .Q24H [facility] Rx#:[id number] Oral 300 Output: Drainage 110 250 Back 110 250 Urine 400 Other: # Voids 3 ABP, PAP, CO, CI - Last Documented Arterial Blood Pressure 150/58 - Exam Head normocephalic Neck supple Lungs clear to auscultation bilaterally no wheezing or crackles Heart regular rate and rhythm S1-S2, no rub or gallop Abdomen is soft nontender nondistended positive bowel sounds no hepatosplenomegaly Extremities no edema Neuro alert and orientated to 3 Back incision dressing clean dry and intact accordion drain in place - Labs CBC & Chem 7: 05/03/23 07:40 05/03/23 07:40 Labs: Abnormal Lab Results - Last 24 Hours (Table) 05/02/23 Range/Units 09:16 Crossmatch See Detail Assessment and Plan Assessment: 1. 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 Patient is currently postop day 3 2. Postop anemia. We'll continue to monitor 3. History of coronary artery disease 4. history of COPD 5. History of seizure disorder 6. History of diverticulosis 7. History of BPH 8. History of essential hypertension 9. History of hyperlipidemia 10. Ongoing nicotine dependence. Patient educated at length about the importance of complete smoking cessation DVT prophylaxis heparin per surgical services recommendation Thank you for this consultation we'll continue to follow patient closely throughout stay DuoNeb breathing treatments, chest x-ray and pulmonary service is consulted, encouraged IS
[2023-05-04 10:44] LABS: Basophils # (A) 0.02 X 10*3/uL (0.00-0.10); Basophils % (A) 0.3 %; Eosinophils # (A) 0.24 X 10*3/uL (0.04-0.35); Eosinophils % (A) 3.7 %; HCT 23.7 % (39.6-50.0); HGB 7.7 d/dL (13.0-17.0); Lymphocytes # (A) 1.14 X 10*3/uL (0.90-5.00); Lymphocytes % (A) 17.4 %; MCH 30.4 pg (27.0-32.0); MCHC 32.5 d/dL (32.0-37.0); MCV 93.7 FL (80.0-97.0); Monocytes # (A) 0.46 X 10*3/uL (0.20-1.00); NRBC Per 100 WBC 0 X 10*3/uL (0.00-0.01); Neutrophils # (A) 4.67 X 10*3/uL (1.80-7.70); Neutrophils % (A) 71.3 %; Platelet Count 159 X 10*3/uL (140-440); RBC 2.53 X 10*6/uL (4.40-5.60); RDW 15.9 % (11.5-14.5); WBC 6.55 X 10*3/uL (4.50-10.00)
[2023-05-04 11:03] LABS: ALT 28 U/L (10-49); AST 77 U/L (14-35); Albumin 3.3 d/dL (3.8-4.9); Albumin/Globulin Ratio 1.74 Ratio (1.60-3.17); Alkaline Phosphatase 88 U/L (41-126); Blood Urea Nitrogen 12.8 mg/dL (9.0-27.0); Calcium 8.9 mg/dL (8.7-10.3); Carbon Dioxide 26.1 mmol/L (21.6-31.8); Chloride 104 mmol/L (96-109); Globulin 1.9 d/dL (1.6-3.3); Glucose 100 mg/dL (70-110); Potassium 3.8 mmol/L (3.5-5.5); Sodium 138 mmol/L (135-145); Total Bilirubin 0.5 mg/dL (0.3-1.2); Total Protein 5.2 d/dL (6.2-8.2)
--- NOTE | 2023-05-04 14:09 | P.CONS ---
History of Present Illness - Reason for Consult Consult date: 05/04/23 rehab recommendations - Chief Complaint debility - History of Present Illness Mr. Thomas is a 72 year old right handed, , who lives alone in an apartment on the second level with elevator. Prior to admission, he was ambulating with a cane and 4 WW. He was independent with ADLs ADLs. His ch ildren did complete his laundry and grocery shopping. Current driving: yes. Retired: yes. Support system: Children He was admitted to [facility] on 05/01 and underwent a planned thoracic 10 to pelvis revision decompression and fusion. Despite multiple conservative measures for treatment patient continued to have debilitating symptoms that led to this operation. Postoperatively patient experienced hypotension requiring some IV fluids. Also some postoperative anemia not requ iring any blood products. PM&R consulted for rehab recommendations. Therapy evaluations reviewed; patient needing min assist sit to stand with 2 WW, ambulated 80 feet with 2 WW min assist, OT evals pending. 05/04/2023: Patient found sitting in chair at bedside. He denies CP, SOB and abdominal pain. LBM 05/02. Patient complains of some back and upper thigh pain. Patient is looking forward to working with therapy gaining back strength, endurance and returning back home. Patient denies other concerns at this time. Review of Systems Negative unless noted in HPI Past Medical History Past Medical History: Asthma, Coronary Artery Disease (CAD), COPD, CVA/TIA, Hyperlipidemia, Myocardial Infarction (MO), Osteoarthritis (OA), Pneumonia, Prostate Disorder, Respiratory Disorder, Seizure Disorder Additional Past Medical History / Comment(s): COPD/Asthma, SOB with streneous activity, Coronary artery disease, Diverticulosis. Seizure disorder (NONE IN MANY YEARS) Degenerative Disc Disease with Astimulator placeme. He suffers from BPH, carpal tunnel disease, arrested several time at time heart attack (2018) Pt reports he may have had a TIA/CVA (2019 or 2020), blind in rt eye and cataracts in Left eye Last Myocardial Infarction Date:: 06/22/18 History of Any Multi-Drug Resistant Organisms: None Reported Past Surgical History: Adenoidectomy, Back Surgery, Cholecystectomy, Heart Catheterization With Stent, Orthopedic Surgery, Tonsillectomy Additional Past Surgical History / Comment(s): Multiple back surgeries including a pain stimulator in place/hardware, L knee surgery with hardware, L rotator cuff repair x 4/cadaver bone, colonoscopy Past Anesthesia/Blood Transfusion Reactions: No Reported Reaction Date of Last Stent Placement:: 06/22/18 Past Psychological History: No Psychological Hx Reported Additional Psychological History / Comment(s): . Smoking Status: Former smoker Past Alcohol Use History: None Reported Additional Past Alcohol Use History / Comment(s): TRYING TO QUIT.Pt started smoking in 1958 and quit November of 2018. started again but hasn't had one since 04/23/23 Past Drug Use History: None Reported - Past Family History Father Family Medical History: Cancer Additional Family Medical History / Comment(s): Liver cancer. Mother Additional Family Medical History / Comment(s): Brain aneurysm Sister(s) Family Medical History: Cancer Additional Family Medical History / Comment(s): Lung cancer Brother(s) Family Medical History: No Reported History Family Family Medical History: Unable to Obtain Medications and Allergies Home Medications Medication Instructions Recorded Confirmed Type Aspirin 81 mg PO DAILY #30 chew 06/24/18 05/01/23 Rx Atorvastatin [Lipitor] 80 mg PO HS 10/29/18 05/01/23 History HYDROcodone/APAP 10-325MG [[place] 1 tab PO Q6H PRN 02/13/19 05/01/23 History 10-325] Nitroglycerin 0.4 mg SL Q5M PRN 02/13/19 05/01/23 History Omeprazole 20 mg PO HS 02/13/19 05/01/23 History Isosorbide Mononitrate ER [Imdur] 60 mg PO QAM 02/19/19 05/01/23 History Cetirizine HCl [Zyrtec] 10 mg PO DAILY 10/20/21 05/01/23 History Cyclobenzaprine HCl 7.5 mg PO TID PRN 10/20/21 05/01/23 History Tamsulosin [Flomax] 0.4 mg PO BID 10/20/21 05/01/23 History Albuterol Inhaler [Ventolin Hfa 2 puff INHALATION RT-BID 11/14/22 05/01/23 History Inhaler] Lidopro 4% 1 applic TOPICAL TID PRN 11/14/22 05/01/23 History Pregabalin [Lyrica] 150 mg PO BID 11/14/22 05/01/23 History traZODone HCL [Desyrel] 50 mg PO HS 11/14/22 05/01/23 History Allergies Allergy/AdvReac Type Severity Reaction Status Date / Time No Known Allergies Allergy Verified 05/01/23 07:09 Physical Exam Vitals: Vital Signs Temp Pulse Pulse Resp BP BP Pulse Ox 05/04/23 12:27 76 05/04/23 12:16 78 05/04/23 09:51 80 05/04/23 09:36 78 93 L 05/04/23 07:13 97.6 F 81 18 124/72 93 L 05/04/23 01:34 98.5 F 84 17 133/75 95 05/03/23 22:14 80 05/03/23 22:03 84 05/03/23 19:46 98.3 F 85 20 128/77 95 05/03/23 18:00 92 19 05/03/23 17:00 90 15 05/03/23 16:00 88 20 05/03/23 15:21 78 05/03/23 15:11 80 05/03/23 15:00 98.8 F 81 14 121/68 93 L 05/03/23 14:32 92 13 Intake and Output 05/03/23 05/04/23 05/04/23 22:59 06:59 14:59 Intake Total 0 200 Output Total 310 100 Balance -310 -100 200 Intake: IV 0 Lactated Ringers 1,000 ml 0 @ 20 mls/hr IV .Q24H [facility] Rx#:[id number] Oral 200 Output: Drainage 260 100 Back 260 100 Urine 50 Other: # Voids 3 EXAM; General: WDWN, male, sitting in chair at bedside, NAD Head: Normocephalic, atraumatic. Eyes: Symmetric Ears: Symmetric. Hearing within normal limits. Mouth: Clear. Neck: Supple. Cardiac: no signs of cardiac distress noted. Calves supple, non tender, no edema Lungs: Breathing comfortably on nasal cannula. Chest symmetric. Abdomen: Soft, nontender, slightly distended. Extremities: Arthritic changes consistent with age. Neurological: Alert and oriented x 3. Speech is clear and fluent without paraphasic errors Cranial nerves: CN II-XII: intact. Sensation: Intact and symmetrical limbs. Musculoskeletal: ROM WFL EXCEPT: decreased HF and SA MMT UE Sh Abd EE EF FABD WE HG Right 3 5 5 5 5 5 Left 3 5 5 5 5 5 MMT LE HF KE DF EHL Right 3 5 5 5 Left 3 5 5 5 Skin: Skin intact where visible to head, neck, and bilateral upper and lower extremities EXCEPT: PIV, incision to back CDI, hemovac in place Psych: Calm, cooperative Results CBC & Chem 7: 05/04/23 07:02 05/04/23 07:02 Labs: Abnormal Lab Results - Last 24 Hours (Table) 05/02/23 05/04/23 05/04/23 Range/Units 09:16 07:02 07:02 RBC 2.53 L (4.40-5.60) X 10*6/uL Hgb 7.7 L (13.0-17.0) d/dL Hct 23.7 L (39.6-50.0) % RDW 15.9 H (11.5-14.5) % AST 77 H (14-35) U/L Total Protein 5.2 L (6.2-8.2) d/dL Albumin 3.3 L (3.8-4.9) d/dL Crossmatch See Detail Assessment and Plan Assessment: #Gait impairment/impaired ADLs secondary to T12-L1 and L2-3 ASD, proximal junctional failure with severe spondylosis and stenosis s/pthoracic 10 to pelvis revision decompression and fusion 05/01 - limit lifting bending twisting to less than 5 lbs -TLSO when out of bed -PT/OT #Lumbar degenerative deformity with severe stenosis and neurogenic claudication #Lower extremity weakness secondary to above #Lower extremity paresthesias secondary to above #Postoperative anemia -05/04: HGB 7.7 #Postoperative hypotension -Stable, recent BP 124/72 # Bowel/ Bladder: Nursing to monitor and report concerns if any. # Diet -Regular # Skin/wound: Skin/Wound care to follow as needed # Pain Management -Tylenol 650 mg every 6 hours as needed, Flexeril 10 mg 3 times daily as needed, [place] 10/325 mg every 6 hours as needed, Dilaudid 0.5 to 1 mg every 3 hours as needed, oxycodone 7.5/325 mg every 4 hours as needed, Lyrica 150 mg twice daily # DVT Prophylaxis: -SQ heparin # Comorbidities: CAD, COPD, CVA, hyperlipidemia, MO, OA, seizure disorder # Your medical dx and mgt Goals: Modified Independent mobility and ADLS both basic and advanced; increased functional mobility/strength; increased balance, safety, endurance. Improvement in medical issues through your care. Barriers: Pain, anemia, endurance, activity restrictions Discharge recommendation: IPR when medically stable. Previously patient independently living home alone. Has rehabilitation needs requiring assistance for ADLs. Is at increased risk for falls/safety concern. Patient seen and examined By Dr. Basilio Note prepped by Anita Tamayo NP-C Author: Anita Tamayo NP
--- NOTE | 2023-05-04 15:17 | CDI ---
Documentation Clarification Form Date: From: Elzbieta Noyola Phone: [phone] Admit Date: 05/01/2023 06:36:00 AM Patient Name: Matthieu Thomas Visit Number: [id number] Discharge Date: ATTENTION: The Clinical Documentation Specialists (CDI) and [facility] Coding Staff appreciate your assistance in clarifying documentation. Please respond to the clarification below the line at the bottom and electronically sign. The CDI & [facility] Coding staff will review the response and follow-up if needed. Please note: Queries are made part of the Legal Health Record. If you have any questions, please contact the author of this message via ITS. Dr. Parveen Rivas "Postoperative hypotension" is documented in the Pulmonology Consult note on 05/03 and patient had a "revision of a T10 to pelvis decompression and fusion" on 05/01. Additional clarification is requested regarding the relationship, if any, that exists between the diagnosis and the procedure. Procedure performed: thoracic 10-pelvis decompression and fusion History/Risk Factors: "72-year-old male patient who presented for an elective thoracic 10-pelvis decompression and fusion with Dr. Arnold on 05/01/2023. Patient has history of chronic back pain and lower extremity weakness with failed conservative management. Additional medical history includes asthma, CAD, COPD, CVA, hyperlipidemia, IA, osteoarthritis, prostate disorder, seizure disorder and ongoing nicotine dependence." - Per Medical Consult Note on 05/02 Clinical Indicators: "Postoperative hypotension, recovered as the patient was assisted IV fluids. Estimated blood loss was about 750 mL intraoperatively" - Per Pulmonology Note on 05/03 BP: 05/01 - 114/67 05/02 - 153/73 05/03 - 115/66 05/04 - 124/72 Treatment: "IV fluids" - Per Pulmonology Consult Note on 05/03 Consults: Pulmonology What relationship, if any, exists between the diagnosis of hypotension and the procedure: [ ] hypotension is a complication of surgical procedure [ ] hypotension is an expected outcome of the surgical procedure [ ] hypotension has been ruled out [ ] Other please specify ____ [ ] Unable to determine hypotension is an expected outcome of the surgical procedure MTDD
[2023-05-04] MEDS: HYDROmorphone 1 MG/ML 1 ML SYRINGE IVP PRN (15:48)
--- NOTE | 2023-05-04 19:12 | P.PN ---
Subjective Progress Note Date: 05/04/23 This is a 72-year-old male patient was currently in the intensive care unit and the patient was admitted to the ICU because of some postoperative hypotension. The patient underwent a revision of a T10 to pelvis decompression and fusion. He did have chronic back pain and severe stenosis and lower extremity weakness bilaterally. Is postop hypotension was treated with fluids. He did not require any pressors. He did encounter some postoperative anemia which is an expected outcome of surgery. The patient currently is on 3 L of oxygen by nasal cannula. Hemoglobin is at 8.9. He is hemodynamically stable. Renal function stable. Electrodes are within normal limits. The CAT scan of the thoracic and lumbar spine that was done on 05/01/2023 showed postsurgical changes. There is evidence of multilevel fixation involving the lower thoracic and lumbar spine. No evidence of any spinal canal stenosis present based on the CAT scan images. Noted the patient had a estimated blood loss of 750 mL. In terms of his respiratory status, the patient is known to have COPD. Is known to have chronic scarring in the lung bases more so on the right. His chest x-ray is consistent with COPD and chronic scarring in the right lung base. He also has a total left shoulder replacement. The triple-lumen catheter is in a good location in the superior vena cava. No reported aspiration. No significant cough or sputum production. The most recent CAT scan of his chest that was done on 11/14/2022 was reviewed. The patient had chronic scarring changes in the right apex. He also had some persistent consolidation of the right lung base which has been stable upon comparison with an earlier CAT scan of the chest from September 2022. His echocardiogram showed a preserved LV function with an ejection fraction of 55%.. The patient denies having any shortness of breath. Using incentive spirometer and is pulling approximately 1500. He is still having issues with pain and he is on Dilaudid and NOrco On today's evaluation of 05/04/2023, the patient is still having issues with pain in his back at the surgical site. He is post T10 to pelvis decompression with fusion. The patient had limited mobility. He is walking without a walker. He is going to get a back brace. His pain is being treated with [place] 10 in addition to Dilaudid on an as-needed basis every 3 hours, between 0.5 and 1 mg. He did have a bowel movement. He also has COPD which is currently inactive and stable. Hemoglobin is at 7.7 with at least monitored and the patient was echo to 6.5. No evidence of any GI bleeding. Renal function stable with a creatinine of 1.0. The rest of electrodes are all within normal limits. The patient has no other new complaints otherwise for now. He is using the incentive spirometer. He remains on oxygen at 2 L with a pulse ox of 95%. He remains afebrile. Objective - Vital Signs Vital signs: Vital Signs Temp 97.6 F 05/04/23 07:13 Pulse 80 05/04/23 09:51 Resp 18 05/04/23 07:13 BP 124/72 05/04/23 07:13 Pulse Ox 93 L 05/04/23 09:36 FiO2 Intake & Output 05/03/23 05/04/23 05/04/23 18:59 06:59 18:59 Intake Total 300 200 Output Total 510 250 Balance -210 -250 200 Intake: IV 0 Lactated Ringers 1,000 ml 0 @ 20 mls/hr IV .Q24H [facility] Rx#:[id number] Oral 300 200 Output: Drainage 110 250 Back 110 250 Urine 400 Other: # Voids 3 ABP, PAP, CO, CI - Last Documented Arterial Blood Pressure 150/58 - Exam General: The patient is awake and alert, in no acute distress, the patient is currently on 2 L of oxygen by nasal cannula. The patient also has a triple- lumen catheter in his right IJ. Head exam was generally normal. There was no scleral icterus or corneal arcus. Mucous membranes were moist. Skin: Skin is warm and dry with no obvious rashes or lesions. Surgical incision to the thoracolumbar spine, edges are well approximated with man intact. Hemovac present to the right of the incision, 10 mL output overnight. Eye: Pupils are equal, round and reactive to light, extra-ocular movements are intact; there is normal conjunctiva bilaterally. Neck: The neck is supple, there is no tenderness and ROM intact. Cardiovascular: There is a regular rate and rhythm. No murmur, rub or gallop is appreciated. Respiratory: Lungs are clear to auscultation, respirations are non-labored, breath sounds are equal. Patient is currently on 3 L nasal cannula Gastrointestinal: Soft, non-distended, non-tender abdomen. Back: There is mild tenderness to palpation in the paralumbar and parathoracic region due to surgical procedure. There is no obvious deformity . Musculoskeletal: ROM limited secondary to pain and stiffness from surgical procedure. Muscle strength in all major muscle groups of bilateral upper extremities 5/5, bilateral lower extremities 4/5. Neurological: CN 2-12 intact. There are no obvious motor or sensory deficits. Movement and coordination equal and intact. Sensory exam to light touch intact C5-T1 and intact from L2-S1. Reflexes 2/4 in bilateral upper and lower extremities. Negative Hoffmans, babinski, and clonus signs. Psychiatric: Cooperative, appropriate mood & affect, normal judgment. - Labs CBC & Chem 7: 05/04/23 07:02 05/04/23 07:02 Labs: Abnormal Lab Results - Last 24 Hours (Table) 05/02/23 05/04/23 05/04/23 Range/Units 09:16 07:02 07:02 RBC 2.53 L (4.40-5.60) X 10*6/uL Hgb 7.7 L (13.0-17.0) d/dL Hct 23.7 L (39.6-50.0) % RDW 15.9 H (11.5-14.5) % AST 77 H (14-35) U/L Total Protein 5.2 L (6.2-8.2) d/dL Albumin 3.3 L (3.8-4.9) d/dL Crossmatch See Detail Assessment and Plan Plan: T10 to pelvis decompression and fusion. The patient is postop day # 3 Postoperative hypotension, recovered as the patient was assisted IV fluids. Estimated blood loss was about 750 mL intraoperatively, the patient is currently normotensive Postoperative anemia, hemoglobin stable. Expected outcome of surgery. The patient has not received any blood transfusion during this current admission. Hemoglobin is currently at 7.7 and a severely monitored. No evidence of any bleeding at this point in time. COPD with diffuse emphysema and chronic dyspnea and based on previous CAT scan imaging, the patient has a chronic scarring in the apices and the right midlung area. This is a chronic finding and it was seen on serial CAT scan of the chest that was done back in 2022 and the abnormality in the right lung and the right apex was also seen on previous CAT scan of the chest from 2019. I doubt a pneumonia at this point in time coronary artery disease diverticulosis hypertension hyperlipidemia Chronic back pain and the patient had a pain stimulator in place. The stimulator has been removed BPH Plan Keep the patient oxygen at 3 L Incentive spirometer Bronchodilators and the patient was started on DuoNeb updrafts No need for any antibiotics at this point in time Aspiration precautions Dilaudid for pain control Increase mobility TLSO back brace Heparin subcu portably prophylaxis Resume all medications Patient is currently outside intensive care unit.
[2023-05-04] MEDS: ATORVASTATIN 80 MG TAB PO SCH (20:58)
[2023-05-04] MEDS: NICOTINE 21MG/24HR PATCH TRANSDERM SCH (20:58)
[2023-05-04] MEDS: PANTOPRAZOLE 40 MG TABLET PO SCH (20:58)
[2023-05-04] MEDS: traZODone HCL 50 MG TAB PO SCH (20:58)
[2023-05-05] MEDS: HYDROmorphone 1 MG/ML 1 ML SYRINGE IVP PRN ×3 (01:58→11:17)
[2023-05-05] MEDS: ACETAMINOPHEN TAB 325 MG TAB PO SCH ×2 (05:04→15:41)
[2023-05-05 07:25] LABS: Basophils % (A) 0 %; Eosinophils # (A) 0.3 k/uL (0-0.7); Eosinophils % (A) 6 %; HGB 9.2 gm/dL (13.0-17.5); Lymphocytes # (A) 1.1 k/uL (1.0-4.8); Lymphocytes % (A) 19 %; MCH 30.5 pg (25.0-35.0); MCHC 32.6 g/dL (31.0-37.0); MCV 93.5 fL (80.0-100.0); Monocytes # (A) 0.2 k/uL (0-1.0); Monocytes % (A) 4 %; Neutrophils # (A) 3.9 k/uL (1.3-7.7); Neutrophils % (A) 69 %; Platelet Count 189 k/uL (150-450); RDW 15.7 % (11.5-15.5); WBC 5.6 k/uL (3.8-10.6)
[2023-05-05 07:51] LABS: ALT 25 U/L (4-49); AST 55 U/L (17-59); African American GFR (CKD) 90 (>60 ml/min/1.73 sqM); Albumin/Globulin Ratio 1.3; Alkaline Phosphatase 90 U/L (38-126); Anion Gap 8 mmol/L; Blood Urea Nitrogen 14 mg/dL (9-20); Calcium 8.9 mg/dL (8.4-10.2); Carbon Dioxide 25 mmol/L (22-30); Chloride 104 mmol/L (98-107); Globulin 2.4 g/dL; Glucose 93 mg/dL (74-99); Non-African American GFR(CKD) 78 (>60 ml/min/1.73 sqM); Potassium 3.7 mmol/L (3.5-5.1); Sodium 137 mmol/L (137-145); Total Bilirubin 0.6 mg/dL (0.2-1.3); Total Protein 5.4 g/dL (6.3-8.2)
--- NOTE | 2023-05-05 08:04 | P.PN ---
Subjective Progress Note Date: 05/05/23 Principal diagnosis: 1. Adjacent segment disease T12-L1, L2-3 2. Flat back syndrome 3. Severe stenosis 4. Lower extremity weakness, bilateral Patient seen and examined this morning. Upon entering room patient is am bulating from restroom with wheeled walker. Patient is tolerating activity well. TLSO brace is at bedside. Patient does report moderate pain mid back with increased activity. Surgical incision to the thoracolumbar spine, Some mild shadowing at the superior portion of the dressing, new dressings have been ordered and may be changed once they arrived to the floor. Hemovac has been discontinued. Patient did receive 1 unit of RBCs yesterday evening, morning hemoglobin is stable at 9.2. Patient is cleared from orthopedic standpoint for discharge to subacute rehab when bed available. No acute concerns at this time. Objective - Vital Signs Vital signs: Vital Signs Temp 98.2 F 05/05/23 07:05 Pulse 82 05/05/23 07:05 Resp 19 05/05/23 07:05 BP 166/83 05/05/23 07:05 Pulse Ox 95 05/05/23 07:05 FiO2 Intake & Output 05/04/23 05/05/23 05/05/23 18:59 06:59 18:59 Intake Total 650 277 Output Total 100 125 Balance 550 152 Intake: Oral 650 Blood Product 0 277 Rc Pheresis As3 Unit 0 277 [id number] Output: Drainage 100 125 Back 100 125 Other: # Voids 1 ABP, PAP, CO, CI - Last Documented Arterial Blood Pressure 150/58 - Exam Physical Examination General: The patient is awake and alert, in no acute distress Skin: Skin is warm and dry with no obvious rashes or lesions. Surgical incision to the thoracolumbar spine, dressing does have mild shadowing at the superior portion, new dressings ordered and may be changed once they arrived to the floor. Eye: Pupils are equal, round and reactive to light, extra-ocular movements are intact; there is normal conjunctiva bilaterally. Neck: The neck is supple, there is no tenderness and ROM intact. Cardiovascular: There is a regular rate and rhythm. No murmur, rub or gallop is appreciated. Respiratory: Lungs are clear to auscultation, respirations are non-labored, breath sounds are equal. Gastrointestinal: Soft, non-distended, non-tender abdomen. Back: There is mild tenderness to palpation in the paralumbar and parathoracic region due to surgical procedure. There is no obvious deformity . Musculoskeletal: ROM limited secondary to pain and stiffness from surgical procedure. Muscle strength in all major muscle groups of bilateral upper extremities 5/5, bilateral lower extremities 4/5. Neurological: CN 2-12 intact. There are no obvious motor or sensory deficits. Movement and coordination equal and intact. Sensory exam to light touch intact C5-T1 and intact from L2-S1. Reflexes 2/4 in bilateral upper and lower extremities. Negative Hoffmans, babinski, and clonus signs. Psychiatric: Cooperative, appropriate mood & affect, normal judgment. - Labs CBC & Chem 7: 05/05/23 07:09 05/05/23 07:09 Labs: Abnormal Lab Results - Last 24 Hours (Table) 04/24/23 05/02/23 05/04/23 Range/Units 10:55 09:16 07:02 RBC 2.53 L (4.40-5.60) X 10*6/uL Hgb 7.7 L (13.0-17.0) d/dL Hct 23.7 L (39.6-50.0) % RDW 15.9 H (11.5-14.5) % AST (14-35) U/L Total Protein (6.2-8.2) d/dL Albumin (3.8-4.9) d/dL Crossmatch See Detail See Detail 05/04/23 05/05/23 05/05/23 Range/Units 07:02 07:09 07:09 RBC 3.00 L (4.40-5.60) X 10*6/uL Hgb 9.2 L (13.0-17.0) d/dL Hct 28.0 L (39.6-50.0) % RDW 15.7 H (11.5-14.5) % AST 77 H (14-35) U/L Total Protein 5.2 L 5.4 L (6.2-8.2) d/dL Albumin 3.3 L 3.0 L (3.8-4.9) d/dL Crossmatch Assessment and Plan Assessment: Postop day 4: Revision [id number] decompression and fusion 1. Adjacent segment disease T12-L1, L2-3 2. Flat back syndrome 3. Severe stenosis 4. Lower extremity weakness, bilateral 5. Postop anemiaexpected outcome from surgery, stable Plan: -Appreciate salesforce consultant and team management. -Activity: Ambulate QID, OOB all meals, up and about, limit lifting bending twisting to less than 5 lbs. Use walker or cane if needed for stability. -Daily PT/OT, increase ambulation strength and balance. -Brace when up and about, not needed in bed or chair -Pain control: Adequate at this time -Meds: reviewed -GI ppx: senna, Miralax -DVT PPX: Heparin -Hygiene: Shower today. Maintain dressing clean and dry. Meticulous cleaning after BMs away from the incision site -Encourage IS 10x/hr -Dispo: Anticipating discharge to subacute rehab when bed available, patient is cleared from orthopedic standpoint. *I reviewed and discussed this case with my attending Dr. Rivas, whom has reviewed this chart and films and is in agreement with assessment and plan of care as outlined above. I have personally seen and examined the patient, performed the documentation and the assessment and plan as written. Number of minutes spent on the visit: 20m.
[2023-05-05] MEDS: NICOTINE 21MG/24HR PATCH TRANSDERM SCH (08:16)
[2023-05-05] MEDS: TAMSULOSIN 0.4 MG CAP.ER.24H PO SCH (08:17)
[2023-05-05] MEDS: ASPIRIN 81 MG PO SCH (08:17)
[2023-05-05] MEDS: PREGABALIN 75 MG CAP PO SCH (08:17)
[2023-05-05] MEDS: LORATADINE 10 MG TAB PO SCH (08:17)
[2023-05-05] MEDS: HEPARIN SODIUM,PORCINE 5,000 UNIT/ML 1 ML VIAL SQ SCH (08:17)
[2023-05-05] MEDS: SENNOSIDES-DOCUSATE SODIUM 1 EACH TAB PO SCH (08:17)
[2023-05-05] MEDS: IPRATROPIUM-ALBUTEROL 3 ML NEB INHALATION SCH ×2 (09:14→11:50)
--- NOTE | 2023-05-05 11:26 | P.PN ---
Subjective Progress Note Date: 05/05/23 This is a 72-year-old male patient who presented for an elective thoracic 10- pelvis decompression and fusion with Dr. Arnold on 05/01/2023. Patient has history of chronic back pain and lower extremity weakness with failed conservative management. Additional medical history includes asthma, CAD, COPD, CVA, hyperlipidemia, [place], osteoarthritis, prostate disorder, seizure disorder and ongoing nicotine dependence. Patient underwent extensive procedure including L2 to L3, L4-L5 intradiscal 3 column colostomy for decompression deformity correction, L2 to L3, L4 to L5 posterior lateral and interbody fusion, T10 to L2 posterior lateral instrumental fusion, instrumentation attachment pelvis insertion of interbody device decompression laminectomy completed with complete facetectomy and for foraminotomy. Decompressive laminectomy partial facetectomy and foraminotomy of T11 to L2. Patient was transferred to ICU postoperatively in stable condition. Today patient is currently sitting up in bed. Patient complains of some discomfort. Denies chest pain or shortness of breath. Denies nausea vomiting or diarrhea. Denies any urinary burning or frequency. Temp 97.9, heart rate 87, respiratory rate 22, blood pressure 135/84 with a pulse ox of 95% on 3 L On 05/03/2033 patient is alert and oriented 3. Patient having increasing wheezing. Patient started on DuoNeb breathing treatments, chest x-ray ordered and pulmonary service is consulted. Also discussed case with Eulalia BENDER with Orthopedic surgical services okay to start heparin every 12 for DVT prophylaxis. Still waiting for TSLO brace to be delivered to bedside. PT OT services are following. Patient denies chest pain or shortness of breath. Patient denies nausea vomiting or diarrhea. Patient denies any urinary burning or frequency. Hemoglobin improving to 8.9 we'll continue to monitor On 05/04/2023 patient is alert and oriented 3. Patient has been moved out of the intensive care unit. Patient being followed by pulmonary services srinivas DuoNeb breathing treatments. Consult placed for possible inpatient rehab admis sammie. Current vital signs temp 97.6, heart rate 81, respiratory rate 18, blood pressure 124/72 with a pulse ox 93% on 3 L incentive spirometer encouraged. Lab work currently pending On 05/05/2023 patient alert and oriented 3. Discharge planning to [facility] facility today. Patient received 1 unit of PRBCs yesterday repeat hemoglobin 9.2. Patient cleared for discharge to rehab facility per medical consult. Patient denies chest pain or shortness of breath. Patient denies nausea vomiting or diarrhea. Patient denies any urinary burning or frequency Objective - Vital Signs Vital signs: Vital Signs Temp 98.2 F 05/05/23 07:05 Pulse 82 05/05/23 07:40 Resp 19 05/05/23 07:40 BP 166/83 05/05/23 07:05 Pulse Ox 95 05/05/23 09:12 FiO2 Intake & Output 05/04/23 05/05/23 05/05/23 18:59 06:59 18:59 Intake Total 650 277 Output Total 100 125 Balance 550 152 Intake: Oral 650 Blood Product 0 277 Rc Pheresis As3 Unit 0 277 [id number] Output: Drainage 100 125 Back 100 125 Other: # Voids 1 ABP, PAP, CO, CI - Last Documented Arterial Blood Pressure 150/58 - Exam Head normocephalic Neck supple Lungs clear to auscultation bilaterally no wheezing or crackles Heart regular rate and rhythm S1-S2, no rub or gallop Abdomen is soft nontender nondistended positive bowel sounds no hepatosplenomegaly Extremities no edema Neuro alert and orientated to 3 Back incision dressing clean dry and intact accordion drain in place - Labs CBC & Chem 7: 05/05/23 07:09 05/05/23 07:09 Labs: Abnormal Lab Results - Last 24 Hours (Table) 04/24/23 05/02/23 05/05/23 Range/Units 10:55 09:16 07:09 RBC 3.00 L (4.30-5.90) m/uL Hgb 9.2 L (13.0-17.5) gm/dL Hct 28.0 L (39.0-53.0) % RDW 15.7 H (11.5-15.5) % Total Protein (6.3-8.2) g/dL Albumin (3.5-5.0) g/dL Crossmatch See Detail See Detail 05/05/23 Range/Units 07:09 RBC (4.30-5.90) m/uL Hgb (13.0-17.5) gm/dL Hct (39.0-53.0) % RDW (11.5-15.5) % Total Protein 5.4 L (6.3-8.2) g/dL Albumin 3.0 L (3.5-5.0) g/dL Crossmatch Assessment and Plan Assessment: 1. 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 Patient is currently postop day 3 2. Postop anemia. We'll continue to monitor 3. History of coronary artery disease 4. history of COPD 5. History of seizure disorder 6. History of diverticulosis 7. History of BPH 8. History of essential hypertension 9. History of hyperlipidemia 10. Ongoing nicotine dependence. Patient educated at length about the importance of complete smoking cessation DVT prophylaxis heparin per surgical services recommendation Thank you for this consultation we'll continue to follow patient closely throughout stay DuoNeb breathing treatments, chest x-ray and pulmonary service is consulted, encouraged IS
--- NOTE | 2023-05-05 12:55 | P.DS ---
Providers Date of admission: 05/01/23 06:36 Expected date of discharge: 05/05/23 Attending physician: Parveen Rivas DO Consults: 05/01/23 07:59 Consult Physician Routine Consulting Provider: Ilene Franks Consult Reason/Comments: Medical Management Do you want consulting provider notified?: Yes 05/03/23 10:04 Consult Physician Routine Consulting Provider: Chloe Lau Consult Reason/Comments: Increased shortness of breath Do you want consulting provider notified?: Yes 05/04/23 10:27 Consult Physician Stat Consulting Provider: Rossana Basilio Consult Reason/Comments: in patient rehab consult Do you want consulting provider notified?: Yes Primary care physician: Ilene Franks [facility] Course: Date of admission: 05/01/2023 Date of discharge: 05/05/2023 Admission diagnosis: Status post revision [id number] decompression and fusion Discharge diagnosis: Same Attending physician: Dr. Rivas Surgical procedures: Revision [id number] decompression and fusion Brief history: Patient is a 72-year-old male who has been following with Dr. 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 Patient is a history of a previous lumbar fusion, conservative measures for first attempted which resulted in minimal relief of symptoms. Patient was then scheduled for a revision [id number] decompression and fusion. Hospital course: Details of patient's surgery can be found in operative report. Patient tolerated the procedure well and was subsequently transported to orthopedic floor. Patient's orthopeidc and medical care was provided daily. Patient had daily laboratory tests performed for evaluation of overall blood counts. Patient had daily physical therapy to include strengthening range of motion as well as education with walker ambulation. Patient was treated with heparin for their postoperative DVT prophylaxis during their inpatient stay. Patient was noted to have a relatively uneventful postoperative course. Patient reported satisfactory pain control with oral pain medications by postoperative day 2. Patient showed satisfactory progress with physical therapy. Patient moved steadily through the program and had no difficulty meeting the goals by postoperative day 4. Given patient's otherwise satisfactory course and having met physical therapy goals, plan is to discharge patient subacute rehab on postoperative day 4. Discharge condition/disposition: Patient will be discharged to subacute rehab in stable condition. Discharge medications: Instructions are given on resumption of patient's normal daily medications per primary care recommendation, in addition patient will be prescribed Percocet 7.5 mg/325 mg, Flexeril 5 mg, Lyrica 150 mg , senna S, Duricef 500 mg,. Spine Discharge and Recovery Instructions Dressing: Leave your dressing in place for a total of 5 days post operatively. Then you may remove your dressing and leave open to air. Keep the area clean and if not able to keep area clean, then cover with sterile gauze and tape. Showering: You may shower 3 days after your procedure allowing soap and water to run over incision. Do not scrub. Do not soak. Blot dry. Follow up: Please confirm a follow up appointment with your surgeon 3 weeks post operativ cecilia. Please make an appointment to follow up with your PCP in 1-2 weeks after surgery for evaluation 3 phase, 3-week plan POST OP WEEKS 1-3 1. Lifting/carrying/pushing/pulling limited to less than 5 pounds. 2. Do not sit for longer than 15 minutes at one time. Get up and walk around. Prolonged sitting is NOT advised. If you lay down, see if you can tolerate laying down on you front (belly side) 3. Walk for periods of 15 minutes = 1 mile but no longer; do it multiple times times each day. 4. Ice your low back after activity. POST OP WEEKS 3-6 1. Lifting limited to less than 20 pounds. 2. Do not sit for longer than 30 minutes at a time. Frequently change positions. Use a sit-to stand workstation or take frequent breaks from sitting if you have returned to work. 3. Walk for 30 minutes each day. If possible, do these three or more times a day POST OP WEEKS 6+ At your 6-week appointment we will give you a physical therapy referral to focus on a core stabilization and strengthening program. You should also work on leg & buttock strengthening, hamstring & quadriceps stretching, and continue a low impact aerobic activity program such as swimming, walking, or riding a stationary bicycle. During the initial 6 weeks after your surgery, you are at the highest risk of re-injuring your spine. You should generally avoid BLTs (bending, lifting and twisting combination motions) and follow the above guidelines to reduce the chance of reinjury. You can anticipate post op appointments in our office at approximately 3 weeks and 6 weeks after your surgery. INCISION CARE: If your incision is not draining you do NOT need to cover it with a dressing. Keep your incision clean, dry and intact. In most cases, we apply skin glue, man or sutures to the incision at the time of surgery. This will be like a crust or have the appearance of a scab and will fall off in time on its own. The stitches or man need to be removed at 3 weeks post op appointment. You may begin to shower 3 days after surgery (this allows the glue to pepe well). However, please avoid scrubbing the incision site or peeling off any of the skin glue. This will ensure optimal healing of your incision. Also, during this time avoid soaking the incision area in water - this includes swimming pools, hot tubs or baths. No ointments, lotions or oils on the incision until your surgeon allows. Leave man, sutures or glue in place. Neurological dysfunction that comes on suddenly can also be a sign of a stroke. Below some common symptoms of a stroke are listed: B - balance difficulty such as sudden onset walking or leaning to one side - NEW E - eye problem such as sudden double vision or trouble seeing on one side - NEW F - Facial weakness or numbness on one side - NEW A - Arm or leg weakness or numbness on one side - NEW S - Slurred speech or difficulty with word finding - NEW T - Time is BRAIN! Call 911 as soon as you recognize these symptoms Diet: Consume a regular diet rich in vegetables and lean protein such as chicken or fish. You should consume in a ratio of approximately 20% fats|40% carbohydrates|40%protein. Vegetables, sweet potatoes, brown rice or quinoa are examples of good carbohydrates. Chips, white bread, cookies and sweets/sugar are examples of bad carbohydrates. Limit your bad carbs, go wild with good carbs. "Life's Simple 7" Guidelines as per [employer] These will help you reclaim your life after surgery and fisherman helper in your recovery, keeping in mind your restrictions. (1) Get Active. Physical activity can help people lose weight, control high blood pressure and cholesterol, feel emotionally better, and sleep better. (2) Control Cholesterol. Avoid a diet high in saturated fat, trans fat, & cholesterol. Limit whole milk & cream, ice cream, butter, egg yolks, processed meats (like sausage and hot dogs), and fatty meats. Choose healthy foods that are low in saturated fat, trans fat and cholesterol which include: Fruits and vegetables, fiber rich grain products (like whole grain pasta and brown rice), lean meat such as chicken, fish, nuts, seeds, and legumes. (3) Eat Better. Eat small portions. Shop at the grocery with a list and do not stray from it. Tips for a healthy diet include: Limit sodium intake to less than 1500mg daily, avoid prepackaged, processed, and fast foods, choose a diet rich in fruits, vegetables, and whole grain, high fiber foods, and limit saturated & cholesterol in your diet. (4) Manage Blood Pressure. If you have high blood pressure, you should have a cuff at home so that you can check your blood pressure regularly. Be sure you have a good cuff. An arm one is generally better than a wrist one. Bring the cuff to a doctor's appointment to validate that the measurements that your cuff are taking are accurate. Take your blood pressure twice daily when you are sitting down and relaxing. Record the numbers in a log and bring this log with you to your doctors' appointments. (5) Lose Weight if your BMI is above 25. A healthy BMI is between 19-25. To calculate Your BMI, you may use a Standard BMI Calculator on the NIH BMI website: <www.nhlbi.nih.gov/guidelines/obesity/BMI/bmicalc.htm>. Weigh oneself daily. If you are overweight, set a goal to lose weight. A pound a week loss if needed is a good target. (6) Reduce Blood Sugar. Limit foods and liquids with "added sugars." (Added sugars include sucrose, fructose, glucose, maltose, dextrose, high fructose corn syrup, corn syrup, concentrated fruit juice and honey). (7) Stop Smoking. If you smoke, quitting smoking is one of the best things that you can do for your health. Smoking increases your risk of heart attack, stroke, and peripheral vascular disease, which is a build-up of plaque in your arteries. Please discard all the cigarettes and lighters in your house. Have a plan for what you will do when you have the urge to smoke. Direct and second- hand smoke shortens your life as well as the lives of your family, friends and others around you. For your health and the health of those around you, please consider quitting! Proper Bending Body Mechanics: Maintain a wide stance with one foot slightly in front of the other. Keep your back straight. Bend utilizing the strength in your hips and knees. Do not bend at the waist. Maintain the lifted object at your waist-level close to your body. Avoid lifting weight that causes immediately pain or pain anywhere in the body afterwards. Smoking/Nicotine If there was ever one thing that you could do to increase your overall health, decrease your risk of cardiovascular problems by about 39% the second you make the choice, it is to STOP SMOKING. Your body's most instant gratification is the second you stop smoking. We have all heard the studies, read the articles but it is true, smoking is extremely bad for your overall health, and moreover it is detrimental to your bone health. Nicotine, IN ANY FORM, kills bone cells, prevents your body from healing fractures, and significantly prolongs healing after surgery. In spine surgery specifically, it increases your risk of not healing your bones to create a fusion and increases your risk of having a revision surgery due to this up to 60%. I know it is hard. I know it feels impossible. But there are ways. Take control of your life. We are here to help you through it. And when you are ready, ask us and we can direct you to help if you desire. Use the START Plan to Quit Smoking (please visit the Helpguide.org website listed below for more information): S = Set a quit date. Choose a date within the next 2 weeks, so you have enough time to prepare without losing your motivation to quit. If you mainly smoke at work, quit on the weekend, so you have a few days to adjust to the change. T = Tell family, friends, and co-workers that you plan to quit. Let your friends and family in on your plan to quit smoking and tell them you need their support and encouragement to stop. Look for a quit kailey who wants to stop smoking as well. You can help each other get through the rough times. A = Anticipate and plan for the challenges you'll face while quitting. Most people who begin smoking again do so within the first 3 months. You can help yourself make it through by preparing ahead for common challenges, such as nicotine withdrawal and cigarette cravings. R = Remove cigarettes and other tobacco products from your home, car, and work. Throw away all your cigarettes (no emergency pack!), lighters, ashtrays, and matches. Wash your clothes and freshen up anything that smells like smoke. Shampoo your car, clean your drapes and carpet, and steam your furniture. T = Talk to your doctor about getting help to quit. Your doctor can prescribe medication to help with withdrawal and suggest other alternatives. If you can't see a doctor, you can get many products over the counter at your local pharmacy or grocery store, including the nicotine patch, nicotine lozenges, and nicotine gum. Resources for Quitting Smoking: <https://www.[place].gov/docgreyn latonya/[facility]/Quit_Tobacco_Resources_for_patients_313480_7.pdf> Supplementation: Take recommended dosages of Vitamin D and Calcium to help fortify your bones and help them to heal. See your health maintenance packet for dosages and recommended levels. DVT/VTE prophylaxis: You will be given compression stockings from the hospital. Wear these daily for the first two weeks after surgery. You may take them off at night. You may be prescribed a medication to help thin your blood. Take this as directed. If you are not prescribed this medication, early and frequent ambulation has been shown to be the best prophylaxis to deep vein thrombosis and sequelae related to this event. Procedures: Revision [id number] decompression and fusion Patient Condition at Discharge: Good Plan - Discharge Summary Discharge Rx Participant: Yes New Discharge Prescriptions: New cefaDROXiL [Duricef] 500 mg PO Q12HR 5 Days #10 cap Pregabalin [Lyrica] 150 mg PO BID #60 cap Sennosides/Docusate Sodium [Senna Plus 8.6-50 mg Tablet] 1 each PO DAILY PRN #20 tablet PRN Reason: Constipation Calcium Carbonate [Tums] 1,000 mg PO TID PRN tab PRN Reason: Heartburn Cyclobenzaprine [Flexeril] 5 mg PO TID PRN #90 tablet PRN Reason: Muscle Spasm oxyCODONE-APAP 7.5-325MG [Percocet 7.5-325 mg] 1 tab PO Q4HR PRN #42 tab PRN Reason: Pain Ipratropium-Albuterol Nebulize [Duoneb 0.5 mg-3 mg/3 ml Soln] 3 ml INHALATION RT-QID each Ipratropium-Albuterol Nebulize [Duoneb 0.5 mg-3 mg/3 ml Soln] 3 ml INHALATION RT-Q2H PRN each PRN Reason: Shortness Of Breath Or Wheezing Continue Aspirin 81 mg PO DAILY #30 chew Atorvastatin [Lipitor] 80 mg PO HS Omeprazole 20 mg PO HS Nitroglycerin 0.4 mg SL Q5M PRN PRN Reason: Chest Pain Isosorbide Mononitrate ER [Imdur] 60 mg PO QAM Tamsulosin [Flomax] 0.4 mg PO BID Cetirizine HCl [Zyrtec] 10 mg PO DAILY Albuterol Inhaler [Ventolin Hfa Inhaler] 2 puff INHALATION RT-BID traZODone HCL [Desyrel] 50 mg PO HS Lidopro 4% 1 applic TOPICAL TID PRN PRN Reason: Pain Discontinued HYDROcodone/APAP 10-325MG [[place] 10-325] 1 tab PO Q6H PRN PRN Reason: Pain Cyclobenzaprine HCl 7.5 mg PO TID PRN PRN Reason: Muscle Spasm No Action Pregabalin [Lyrica] 150 mg PO BID Discharge Medication List Aspirin 81 mg PO DAILY #30 chew 06/24/18 [Rx] Atorvastatin [Lipitor] 80 mg PO HS 10/29/18 [History] Nitroglycerin 0.4 mg SL Q5M PRN 02/13/19 [History] Omeprazole 20 mg PO HS 02/13/19 [History] Isosorbide Mononitrate ER [Imdur] 60 mg PO QAM 02/19/19 [History] Cetirizine HCl [Zyrtec] 10 mg PO DAILY 10/20/21 [History] Tamsulosin [Flomax] 0.4 mg PO BID 10/20/21 [History] Albuterol Inhaler [Ventolin Hfa Inhaler] 2 puff INHALATION RT-BID 11/14/22 [History] Lidopro 4% 1 applic TOPICAL TID PRN 11/14/22 [History] Pregabalin [Lyrica] 150 mg PO BID 11/14/22 [History] traZODone HCL [Desyrel] 50 mg PO HS 11/14/22 [History] Calcium Carbonate [Tums] 1,000 mg PO TID PRN tab 05/05/23 [Rx] Cyclobenzaprine [Flexeril] 5 mg PO TID PRN #90 tablet 05/05/23 [Rx] Ipratropium-Albuterol Nebulize [Duoneb 0.5 mg-3 mg/3 ml Soln] 3 ml INHALATION RT-Q2H PRN each 05/05/23 [Rx] Ipratropium-Albuterol Nebulize [Duoneb 0.5 mg-3 mg/3 ml Soln] 3 ml INHALATION RT-QID each 05/05/23 [Rx] Pregabalin [Lyrica] 150 mg PO BID #60 cap 05/05/23 [Rx] Sennosides/Docusate Sodium [Senna Plus 8.6-50 mg Tablet] 1 each PO DAILY PRN #20 tablet 05/05/23 [Rx] cefaDROXiL [Duricef] 500 mg PO Q12HR 5 Days #10 cap 05/05/23 [Rx] oxyCODONE-APAP 7.5-325MG [Percocet 7.5-325 mg] 1 tab PO Q4HR PRN #42 tab 05/05/23 [Rx] Follow up Appointment(s)/Referral(s): Mehdi Barfield, [NON-STAFF] - As Needed Parveen Rivas DO [Doctor of Osteopathic Medicine] - 10 Days Ilene Franks MD [Primary Care Provider] - 1 Week Patient Instructions/Handouts: Clamshell Brace (DC), Back Pain (ED) Activity/Diet/Wound Care/Special Instructions: Spine Discharge and Recovery Instructions Date of Surgery: 05/01/2023 Diagnosis: Lumbar adjacent segment disease Procedure: Revision [id number] decompression and fusion Medications: See medication list All medication refills should be obtained through your primary care doctor or your clinic spine surgeon. Please discuss prescription refills at your follow up appointment. Do not call the hospital for medication refills. Dressing: Leave your dressing in place for a total of 5 days post operatively. Then you may remove your dressing and leave open to air. Keep the area clean and if not able to keep area clean, then cover with sterile gauze and tape. Showering: You may shower 3 days after your procedure allowing soap and water to run over incision. Do not scrub. Do not soak. Blot dry. Follow up: Please confirm a follow up appointment with your surgeon 3 weeks post operatively. Please make an appointment to follow up with your PCP in 1-2 weeks after surgery for evaluation 3 phase, 3-week plan POST OP WEEKS 1-3 1. Lifting/carrying/pushing/pulling limited to less than 5 pounds. 2. Do not sit for longer than 15 minutes at one time. Get up and walk around. Prolonged sitting is NOT advised. If you lay down, see if you can tolerate laying down on you front (belly side) 3. Walk for periods of 15 minutes = 1 mile but no longer; do it multiple times times each day. 4. Ice your low back after activity. POST OP WEEKS 3-6 1. Lifting limited to less than 20 pounds. 2. Do not sit for longer than 30 minutes at a time. Frequently change positions. Use a sit-to stand workstation or take frequent breaks from sitting if you have returned to work. 3. Walk for 30 minutes each day. If possible, do these three or more times a day POST OP WEEKS 6+ At your 6-week appointment we will give you a physical therapy referral to focus on a core stabilization and strengthening program. You should also work on leg & buttock strengthening, hamstring & quadriceps stretching, and continue a low impact aerobic activity program such as swimming, walking, or riding a stationary bicycle. During the initial 6 weeks after your surgery, you are at the highest risk of re-injuring your spine. You should generally avoid BLTs (bending, lifting and twisting combination motions) and follow the above guidelines to reduce the chance of reinjury. You can anticipate post op appointments in our office at approximately 3 weeks and 6 weeks after your surgery. INCISION CARE: If your incision is not draining you do NOT need to cover it with a dressing. Keep your incision clean, dry and intact. In most cases, we apply skin glue, man or sutures to the incision at the time of surgery. This will be like a crust or have the appearance of a scab and will fall off in time on its own. The stitches or man need to be removed at 3 weeks post op appointment. You may begin to shower 3 days after surgery (this allows the glue to pepe well). However, please avoid scrubbing the incision site or peeling off any of the skin glue. This will ensure optimal healing of your incision. Also, during this time avoid soaking the incision area in water - this includes swimming pools, hot tubs or baths. No ointments, lotions or oils on the incision until your surgeon allows. Leave man, sutures or glue in place. Neurological dysfunction that comes on suddenly can also be a sign of a stroke. Below some common symptoms of a stroke are listed: B - balance difficulty such as sudden onset walking or leaning to one side - NEW E - eye problem such as sudden double vision or trouble seeing on one side - NEW F - Facial weakness or numbness on one side - NEW A - Arm or leg weakness or numbness on one side - NEW S - Slurred speech or difficulty with word finding - NEW T - Time is BRAIN! Call 911 as soon as you recognize these symptoms Diet: Consume a regular diet rich in vegetables and lean protein such as chicken or fish. You should consume in a ratio of approximately 20% fats|40% carbohydrates|40%protein. Vegetables, sweet potatoes, brown rice or quinoa are examples of good carbohydrates. Chips, white bread, cookies and sweets/sugar are examples of bad carbohydrates. Limit your bad carbs, go wild with good carbs. "Life's Simple 7" Guidelines as per [employer] These will help you reclaim your life after surgery and fisherman helper in your recovery, keeping in mind your restrictions. (1) Get Active. Physical activity can help people lose weight, control high blood pressure and cholesterol, feel emotionally better, and sleep better. (2) Control Cholesterol. Avoid a diet high in saturated fat, trans fat, & cholesterol. Limit whole milk & cream, ice cream, butter, egg yolks, processed meats (like sausage and hot dogs), and fatty meats. Choose healthy foods that are low in saturated fat, trans fat and cholesterol which include: Fruits and vegetables, fiber rich grain products (like whole grain pasta and brown rice), lean meat such as chicken, fish, nuts, seeds, and legumes. (3) Eat Better. Eat small portions. Shop at the grocery with a list and do not stray from it. Tips for a healthy diet include: Limit sodium intake to less than 1500mg daily, avoid prepackaged, processed, and fast foods, choose a diet rich in fruits, vegetables, and whole grain, high fiber foods, and limit saturated & cholesterol in your diet. (4) Manage Blood Pressure. If you have high blood pressure, you should have a cuff at home so that you can check your blood pressure regularly. Be sure you have a good cuff. An arm one is generally better than a wrist one. Bring the cuff to a doctor's appointment to validate that the measurements that your cuff are taking are accurate. Take your blood pressure twice daily when you are sitting down and relaxing. Record the numbers in a log and bring this log with you to your doctors' appointments. (5) Lose Weight if your BMI is above 25. A healthy BMI is between 19-25. To calculate Your BMI, you may use a Standard BMI Calculator on the NIH BMI website: <www.nhlbi.nih.gov/guidelines/obesity/BMI/bmicalc.htm>. Weigh oneself daily. If you are overweight, set a goal to lose weight. A pound a week loss if needed is a good target. (6) Reduce Blood Sugar. Limit foods and liquids with "added sugars." (Added sugars include sucrose, fructose, glucose, maltose, dextrose, high fructose corn syrup, corn syrup, concentrated fruit juice and honey). (7) Stop Smoking. If you smoke, quitting smoking is one of the best things that you can do for your health. Smoking increases your risk of heart attack, stroke, and peripheral vascular disease, which is a build-up of plaque in your arteries. Please discard all the cigarettes and lighters in your house. Have a plan for what you will do when you have the urge to smoke. Direct and second- hand smoke shortens your life as well as the lives of your family, friends and others around you. For your health and the health of those around you, please consider quitting! Proper Bending Body Mechanics: Maintain a wide stance with one foot slightly in front of the other. Keep your back straight. Bend utilizing the strength in your hips and knees. Do not bend at the waist. Maintain the lifted object at your waist-level close to your body. Avoid lifting weight that causes immediately pain or pain anywhere in the body afterwards. Smoking/Nicotine If there was ever one thing that you could do to increase your overall health, decrease your risk of cardiovascular problems by about 39% the second you make the choice, it is to STOP SMOKING. Your body's most instant gratification is the second you stop smoking. We have all heard the studies, read the articles but it is true, smoking is extremely bad for your overall health, and moreover it is detrimental to your bone health. Nicotine, IN ANY FORM, kills bone cells, prevents your body from healing fractures, and significantly prolongs healing after surgery. In spine surgery specifically, it increases your risk of not healing your bones to create a fusion and increases your risk of having a revision surgery due to this up to 60%. I know it is hard. I know it feels impossible. But there are ways. Take control of your life. We are here to help you through it. And when you are ready, ask us and we can direct you to help if you desire. Use the START Plan to Quit Smoking (please visit the [employer] website listed below for more information): S = Set a quit date. Choose a date within the next 2 weeks, so you have enough time to prepare without losing your motivation to quit. If you mainly smoke at work, quit on the weekend, so you have a few days to adjust to the change. T = Tell family, friends, and co-workers that you plan to quit. Let your friends and family in on your plan to quit smoking and tell them you need their support and encouragement to stop. Look for a quit kailey who wants to stop smoking as well. You can help each other get through the rough times. A = Anticipate and plan for the challenges you'll face while quitting. Most people who begin smoking again do so within the first 3 months. You can help yourself make it through by preparing ahead for common challenges, such as nicotine withdrawal and cigarette cravings. R = Remove cigarettes and other tobacco products from your home, car, and work. Throw away all your cigarettes (no emergency pack!), lighters, ashtrays, and matches. Wash your clothes and freshen up anything that smells like smoke. Shampoo your car, clean your drapes and carpet, and steam your furniture. T = Talk to your doctor about getting help to quit. Your doctor can prescribe medication to help with withdrawal and suggest other alternatives. If you can't see a doctor, you can get many products over the counter at your local pharmacy or grocery store, including the nicotine patch, nicotine lozenges, and nicotine gum. Resources for Quitting Smoking: <https://www.[place].gov/documents/[facility]/Quit_Tobacco_Resources_for_patients_313 480_7.pdf> Supplementation: Take recommended dosages of Vitamin D and Calcium to help fortify your bones and help them to heal. See your health maintenance packet for dosages and recommend ed levels. DVT/VTE prophylaxis: You will be given compression stockings from the hospital. Wear these daily for the first two weeks after surgery. You may take them off at night. You may be prescribed a medication to help thin your blood. Take this as directed. If you are not prescribed this medication, early and frequent ambulation has been shown to be the best prophylaxis to deep vein thrombosis and sequelae related to this event. Discharge Disposition: TRANSFER TO SNF/ECF
[2023-05-05] MEDS: HYDROcodone/APAP 10-325MG 1 EACH TAB PO PRN (14:20)
[2023-05-05 15:23] VITALS: BP 135/80; PULSE 77; RESP 18; TEMP 98.4
--- NOTE | 2023-05-05 15:36 | P.PN ---
Subjective Progress Note Date: 05/05/23 This is a 72-year-old male patient was currently in the intensive care unit and the patient was admitted to the ICU because of some postoperative hypotension. The patient underwent a revision of a T10 to pelvis decompression and fusion. He did have chronic back pain and severe stenosis and lower extremity weakness bilaterally. Is postop hypotension was treated with fluids. He did not require any pressors. He did encounter some postoperative anemia which is an expected outcome of surgery. The patient currently is on 3 L of oxygen by nasal cannula. Hemoglobin is at 8.9. He is hemodynamically stable. Renal function stable. Electrodes are within normal limits. The CAT scan of the thoracic and lumbar spine that was done on 05/01/2023 showed postsurgical changes. There is evidence of multilevel fixation involving the lower thoracic and lumbar spine. No evidence of any spinal canal stenosis present based on the CAT scan images. Noted the patient had a estimated blood loss of 750 mL. In terms of his respiratory status, the patient is known to have COPD. Is known to have chronic scarring in the lung bases more so on the right. His chest x-ray is consistent with COPD and chronic scarring in the right lung base. He also has a total left shoulder replacement. The triple-lumen catheter is in a good location in the superior vena cava. No reported aspiration. No significant cough or sputum production. The most recent CAT scan of his chest that was done on 11/14/2022 was reviewed. The patient had chronic scarring changes in the right apex. He also had some persistent consolidation of the right lung base which has been stable upon comparison with an earlier CAT scan of the chest from September 2022. His echocardiogram showed a preserved LV function with an ejection fraction of 55%.. The patient denies having any shortness of breath. Using incentive spirometer and is pulling approximately 1500. He is still having issues with pain and he is on Dilaudid and NOrco On today's evaluation of 05/04/2023, the patient is still having issues with pain in his back at the surgical site. He is post T10 to pelvis decompression with fusion. The patient had limited mobility. He is walking without a walker. He is going to get a back brace. His pain is being treated with [place] 10 in addition to Dilaudid on an as-needed basis every 3 hours, between 0.5 and 1 mg. He did have a bowel movement. He also has COPD which is currently inactive and stable. Hemoglobin is at 7.7 with at least monitored and the patient was echo to 6.5. No evidence of any GI bleeding. Renal function stable with a creatinine of 1.0. The rest of electrodes are all within normal limits. The patient has no other new complaints otherwise for now. He is using the incentive spirometer. He remains on oxygen at 2 L with a pulse ox of 95%. He remains afebrile. 05/05/2023, I'm seeing the patient for a follow-up. No respiratory difficulties. The patient using the senna spirometer. Continues to have considerable amount of pain and pain is an ongoing issue for him. He was able to ambulate minimally with the help of a walker. He has no other complaints. No constipation. The blood work shows a delirious count of 9.2, platelet count is 189. Surgical wound is dry clean and intact. Gait is at 40 with a creatinine of 0.9 and his sodium levels of 137. He is afebrile. His moldable 4 extremities. No altered mentation. Objective - Vital Signs Vital signs: Vital Signs Temp 98.2 F 05/05/23 07:05 Pulse 88 05/05/23 11:59 Resp 19 05/05/23 07:40 BP 166/83 05/05/23 07:05 Pulse Ox 95 05/05/23 09:12 FiO2 Intake & Output 05/04/23 05/05/23 05/05/23 18:59 06:59 18:59 Intake Total 650 277 Output Total 100 125 Balance 550 152 Intake: Oral 650 Blood Product 0 277 Rc Pheresis As3 Unit 0 277 [id number] Output: Drainage 100 125 Back 100 125 Other: # Voids 1 ABP, PAP, CO, CI - Last Documented Arterial Blood Pressure 150/58 - Exam General: The patient is awake and alert, in no acute distress, the patient is currently on 2 L of oxygen by nasal cannula. The patient also has a triple- lumen catheter in his right IJ. Head exam was generally normal. There was no scleral icterus or corneal arcus. Mucous membranes were moist. Skin: Skin is warm and dry with no obvious rashes or lesions. Surgical incision to the thoracolumbar spine, edges are well approximated with man intact. Hemovac present to the right of the incision, 10 mL output overnight. Eye: Pupils are equal, round and reactive to light, extra-ocular movements are intact; there is normal conjunctiva bilaterally. Neck: The neck is supple, there is no tenderness and ROM intact. Cardiovascular: There is a regular rate and rhythm. No murmur, rub or gallop is appreciated. Respiratory: Lungs are clear to auscultation, respirations are non-labored, breath sounds are equal. Patient is currently on 3 L nasal cannula Gastrointestinal: Soft, non-distended, non-tender abdomen. Back: There is mild tenderness to palpation in the paralumbar and parathoracic region due to surgical procedure. There is no obvious deformity . Musculoskeletal: ROM limited secondary to pain and stiffness from surgical procedure. Muscle strength in all major muscle groups of bilateral upper extremities 5/5, bilateral lower extremities 4/5. Neurological: CN 2-12 intact. There are no obvious motor or sensory deficits. Movement and coordination equal and intact. Sensory exam to light touch intact C5-T1 and intact from L2-S1. Reflexes 2/4 in bilateral upper and lower extremities. Negative Hoffmans, babinski, and clonus signs. Psychiatric: Cooperative, appropriate mood & affect, normal judgment. - Labs CBC & Chem 7: 05/05/23 07:09 05/05/23 07:09 Labs: Abnormal Lab Results - Last 24 Hours (Table) 04/24/23 05/02/23 05/05/23 Range/Units 10:55 09:16 07:09 RBC 3.00 L (4.30-5.90) m/uL Hgb 9.2 L (13.0-17.5) gm/dL Hct 28.0 L (39.0-53.0) % RDW 15.7 H (11.5-15.5) % Total Protein (6.3-8.2) g/dL Albumin (3.5-5.0) g/dL Crossmatch See Detail See Detail 05/05/23 Range/Units 07:09 RBC (4.30-5.90) m/uL Hgb (13.0-17.5) gm/dL Hct (39.0-53.0) % RDW (11.5-15.5) % Total Protein 5.4 L (6.3-8.2) g/dL Albumin 3.0 L (3.5-5.0) g/dL Crossmatch Assessment and Plan Plan: T10 to pelvis decompression and fusion. The patient is postop day # 4 Postoperative hypotension, recovered as the patient was assisted IV fluids. Estimated blood loss was about 750 mL intraoperatively, the patient is currently normotensive Postoperative anemia, hemoglobin stable. Expected outcome of surgery. The patient has not received any blood transfusion during this current admission. Hemoglobin is currently at 7.7 and a severely monitored. No evidence of any b leeding at this point in time. The patient's most recent hemoglobin is up to 9.2 and the patient has received 2 units of packed RBC. COPD with diffuse emphysema and chronic dyspnea and based on previous CAT scan imaging, the patient has a chronic scarring in the apices and the right midlung area. This is a chronic finding and it was seen on serial CAT scan of the chest that was done back in 2022 and the abnormality in the right lung and the right apex was also seen on previous CAT scan of the chest from 2019. I doubt a pneumonia at this point in time coronary artery disease diverticulosis hypertension hyperlipidemia Chronic back pain and the patient had a pain stimulator in place. The stimulator has been removed BPH Plan The patient is currently on room air oxygen Hemoglobin is stable Increase mobility Orthopedic surgeries on the case Incentive spirometer Bronchodilators and the patient was started on DuoNeb updrafts No need for any antibiotics at this point in time Aspiration precautions Dilaudid for pain control Increase mobility TLSO back brace Heparin subcu portably prophylaxis Resume all medications Patient is currently outside intensive care unit.
[2023-05-05] MEDS: ISOSORBIDE MONONITRATE ER 60 MG TAB.ER.24H PO SCH (15:41)
== END 2023-05-05 15:30 | DRG 454 ==
LOC: 2ORMAIN 06:36 → EDSTATUS 07:30 → 2SICU 15:52 → 4SSUR 05-03 18:44
PROVIDERS: ADMIT Orthopaedic Surgery; ATTEND Orthopaedic Surgery
PROC: 0RG7071 Fusion of 2 to 7 Thoracic Vertebral Joints with Autologous Tissue Substitute, Posterior Approach, Posterior Column, Open Approach (ICD-10-PCS; 2023-05-01)
PROC: 0QS00ZZ Reposition Lumbar Vertebra, Open Approach (ICD-10-PCS; 2023-05-01)
PROC: 0SG10AJ Fusion of 2 or more Lumbar Vertebral Joints with Interbody Fusion Device, Posterior Approach, Anterior Column, Open Approach (ICD-10-PCS; 2023-05-01)
PROC: 0SG1071 Fusion of 2 or more Lumbar Vertebral Joints with Autologous Tissue Substitute, Posterior Approach, Posterior Column, Open Approach (ICD-10-PCS; 2023-05-01)
PROC: 0RGA0AJ Fusion of Thoracolumbar Vertebral Joint with Interbody Fusion Device, Posterior Approach, Anterior Column, Open Approach (ICD-10-PCS; 2023-05-01)
PROC: 0RG7071 Fusion of 2 to 7 Thoracic Vertebral Joints with Autologous Tissue Substitute, Posterior Approach, Posterior Column, Open Approach (ICD-10-PCS; 2023-05-01)
PROC: 01NB0ZZ Release Lumbar Nerve, Open Approach (ICD-10-PCS; 2023-05-01)
PROC: 0QH304Z Insertion of Internal Fixation Device into Left Pelvic Bone, Open Approach (ICD-10-PCS; 2023-05-01)
PROC: 8E0WXBZ Computer Assisted Procedure of Trunk Region (ICD-10-PCS; 2023-05-01)
PROC: 0QH204Z Insertion of Internal Fixation Device into Right Pelvic Bone, Open Approach (ICD-10-PCS; 2023-05-01)
PROC: 0RG70AJ Fusion of 2 to 7 Thoracic Vertebral Joints with Interbody Fusion Device, Posterior Approach, Anterior Column, Open Approach (ICD-10-PCS; principal; 2023-05-01 08:15)
DX: M47.815 Spondylosis without myelopathy or radiculopathy, thoracolumbar region (principal); D62 Acute posthemorrhagic anemia; I95.9 Hypotension, unspecified; G40.909 Epilepsy, unspecified, not intractable, without status epilepticus; I10 Essential (primary) hypertension; G47.8 Other sleep disorders; M47.816 Spondylosis without myelopathy or radiculopathy, lumbar region; M40.36 Flatback syndrome, lumbar region; M51.36 Other intervertebral disc degeneration, lumbar region; M48.062 Spinal stenosis, lumbar region with neurogenic claudication; M25.78 Osteophyte, vertebrae; M40.205 Unspecified kyphosis, thoracolumbar region; G89.29 Other chronic pain; E78.5 Hyperlipidemia, unspecified; J98.4 Other disorders of lung; J44.89 Other specified chronic obstructive pulmonary disease; N40.0 Benign prostatic hyperplasia without lower urinary tract symptoms; I25.10 Atherosclerotic heart disease of native coronary artery without angina pectoris; R53.81 Other malaise; H54.61 Unqualified visual loss, right eye, normal vision left eye; Z96.612 Presence of left artificial shoulder joint; Z87.891 Personal history of nicotine dependence; Z79.82 Long term (current) use of aspirin; Z79.51 Long term (current) use of inhaled steroids; Z96.82 Presence of neurostimulator; I25.2 Old myocardial infarction; V29.99XS Rider (driver) (passenger) of other motorcycle injured in unspecified traffic accident, sequela; Z86.73 Personal history of transient ischemic attack (TIA), and cerebral infarction without residual deficits; Z95.5 Presence of coronary angioplasty implant and graft; Z79.899 Other long term (current) drug therapy
CPT/HCPCS: 71045; 72100; 72128; 72131; 80048; 80053; 85025; 85027; 85610; 86850; 86891; 86900; 86901; 86920; 94640; 94760

== ENCOUNTER 2023-12-17 10:25 | Emergency (ER) | payer MEDICARE, OTHER ==
[2023-12-17 10:29] VITALS: RESP 18
--- NOTE | 2023-12-17 10:55 | ED ---
General Adult HPI - General Chief complaint: Urogenital Stated complaint: groin pain Time Seen by Provider: 12/17/23 10:30 Source: patient, RN notes reviewed, old records reviewed Mode of arrival: ambulatory Limitations: no limitations - History of Present Illness Initial comments: This is a 73-year-old male who presents to the emergency department complaining of left testicular pain since yesterday morning. Patient states that this came on all of a sudden and has gotten progressively worse since yesterday morning. Patient denies any trauma. Patient denies any difficulty urinating. Patient denies any back pain. Patient denies any abdominal pain. Patient denies any fevers or chills - Related Data Home Medications Medication Instructions Recorded Confirmed Atorvastatin [Lipitor] 80 mg PO HS 10/29/18 05/01/23 Nitroglycerin 0.4 mg SL Q5M PRN 02/13/19 05/01/23 Omeprazole 20 mg PO HS 02/13/19 05/01/23 Isosorbide Mononitrate ER [Imdur] 60 mg PO QAM 02/19/19 05/01/23 Cetirizine HCl [Zyrtec] 10 mg PO DAILY 10/20/21 05/01/23 Tamsulosin [Flomax] 0.4 mg PO BID 10/20/21 05/01/23 Albuterol Inhaler [Ventolin Hfa 2 puff INHALATION RT-BID 11/14/22 05/01/23 Inhaler] Lidopro 4% 1 applic TOPICAL TID PRN 11/14/22 05/01/23 Pregabalin [Lyrica] 150 mg PO BID 11/14/22 05/01/23 traZODone HCL [Desyrel] 50 mg PO HS 11/14/22 05/01/23 Previous Rx's Medication Instructions Recorded Aspirin 81 mg PO DAILY #30 chew 06/24/18 Calcium Carbonate [Tums] 1,000 mg PO TID PRN tab 05/05/23 Cyclobenzaprine [Flexeril] 5 mg PO TID PRN #90 tablet 05/05/23 Ipratropium-Albuterol Nebulize 3 ml INHALATION RT-Q2H PRN each 05/05/23 [Duoneb 0.5 mg-3 mg/3 ml Soln] Ipratropium-Albuterol Nebulize 3 ml INHALATION RT-QID each 05/05/23 [Duoneb 0.5 mg-3 mg/3 ml Soln] Pregabalin [Lyrica] 150 mg PO BID #60 cap 05/05/23 Sennosides/Docusate Sodium [Senna 1 each PO DAILY PRN #20 tablet 05/05/23 Plus 8.6-50 mg Tablet] cefaDROXiL [Duricef] 500 mg PO Q12HR 5 Days #10 cap 05/05/23 oxyCODONE-APAP 7.5-325MG [Percocet 1 tab PO Q4HR PRN #42 tab 05/05/23 7.5-325 mg] Levofloxacin [Levaquin] 750 mg PO DAILY #10 tab 12/17/23 Allergies Allergy/AdvReac Type Severity Reaction Status Date / Time No Known Allergies Allergy Verified 12/17/23 10:29 Review of Systems ROS Statement: Those systems with pertinent positive or pertinent negative responses have been documented in the HPI. ROS Other: All systems not noted in ROS Statement are negative. Past Medical History Past Medical History: Asthma, Coronary Artery Disease (CAD), COPD, CVA/TIA, Hyperlipidemia, Myocardial Infarction (AK), Osteoarthritis (OA), Pneumonia, Prostate Disorder, Respiratory Disorder, Seizure Disorder Additional Past Medical History / Comment(s): COPD/Asthma, SOB with streneous activity, Coronary artery disease, Diverticulosis. Seizure disorder (NONE IN MANY YEARS) Degenerative Disc Disease with Astimulator placeme. He suffers from BPH, carpal tunnel disease, arrested several time at time heart attack (2017) Pt reports he may have had a TIA/CVA (2019 or 2020), blind in rt eye and cataracts in Left eye Last Myocardial Infarction Date:: 06/22/18 History of Any Multi-Drug Resistant Organisms: None Reported Past Surgical History: Adenoidectomy, Back Surgery, Cholecystectomy, Heart Catheterization With Stent, Orthopedic Surgery, Tonsillectomy Additional Past Surgical History / Comment(s): Multiple back surgeries including a pain stimulator in place/hardware, R knee surgery with hardware, L rotator cuff repair x 4/cadaver bone, colonoscopy Past Anesthesia/Blood Transfusion Reactions: No Reported Reaction Date of Last Stent Placement:: 06/22/18 Past Psychological History: No Psychological Hx Reported Smoking Status: Former smoker Past Alcohol Use History: None Reported Past Drug Use History: None Reported - Past Family History Father Family Medical History: Cancer Additional Family Medical History / Comment(s): Liver cancer. Mother Additional Family Medical History / Comment(s): Brain aneurysm Sister(s) Family Medical History: Cancer Additional Family Medical History / Comment(s): Lung cancer Brother(s) Family Medical History: No Reported History Family Family Medical History: Unable to Obtain General Exam - General Exam Comments Initial Comments: GENERAL Patient is well-developed and well-nourished. Patient is in mild distress. EYES Patient's pupils are equal and round. Extraocular motion is intact SKIN Unremarkable NEURO The patient is alert and oriented A&Ox3 PYSCH Patient has normal interpersonal interactions. MUSCULOSKELETAL All 4 extremities have full range of motion GENITALIA Patient has a very swollen left testicle and very tender and the scrotal area is mildly erythematous Limitations: no limitations Course Vital Signs 12/17/23 10:26 Temperature 97.8 F Pulse Rate 100 Respiratory 18 Rate Blood Pressure 115/76 O2 Sat by Pulse 98 Oximetry Medical Decision Making - Medical Decision Making Was pt. sent in by a medical professional or institution (, PA, LADIES L[employer]ER ROOM ATTENDANT, urgent care, hospital, or care home...) When possible be specific @ -No Did you speak to anyone other than the patient for history (EMS, parent, family, police, friend...)? What history was obtained from this source @ -No Did you review nursing and triage notes (agree or disagree)? Why? @ -I reviewed and agree with nursing and triage notes Were old charts reviewed (outside hosp., previous admission, EMS record, old EKG, old radiological studies, urgent care reports/EKG's, care home records)? Report findings @ -No old charts were reviewed Differential Diagnosis (chest pain, altered mental status, abdominal pain women, abdominal pain men, vaginal bleeding, weakness, fever, dyspnea, syncope, headache, dizziness, GI bleed, back pain, seizure, CVA, palpatations, mental health, musculoskeletal)? @ -Epididymitis, orchitis, urinary tract infection, testicular torsion, this is not an all-inclusive list EKG interpreted by me (3pts min.). @ -As above X-rays interpreted by me (1pt min.). @ -None done CT interpreted by me (1pt min.). @ -None done U/S interpreted by me (1pt. min.). @ -Ultrasound showed epididymitis and orchitis. What testing was considered but not performed or refused? (CT, X-rays, U/S, labs)? Why? @ -None What meds were considered but not given or refused? Why? @ -None Did you discuss the management of the patient with other professionals (professionals i.e. , PA, LAD[employer] L[employer]ER ROOM ATTENDANT, lab, RT, psych nurse, manager social media, right of way buyer, teacher, chief analytics officer, manager rn case)? Give summary @ -No Was smoking cessation discussed for >3mins.? @ -No Was critical care preformed (if so, how long)? @ -No Were there social determinants of health that impacted care today? How? (Homelessness, low income, unemployed, alcoholism, drug addiction, transportation, low edu. Level, literacy, decrease access to med. care, [place] [facility], rehab)? @ -No Was there de-escalation of care discussed even if they declined (Discuss DNR or withdrawal of care, Hospice)? DNR status @ -No What co-morbidities impacted this encounter? (DM, HTN, Smoking, COPD, CAD, Cancer, CVA, ARF, Chemo, Hep., AIDS, mental health diagnosis, sleep apnea, morbid obesity)? @ -None Was patient admitted / discharged? Hospital course, mention meds given and route, prescriptions, significant lab abnormalities, going to OR and other pertinent info. @ -Patient will be given Levaquin in the emergency department and will be instructed to follow-up with urology Undiagnosed new problem with uncertain prognosis? @ -No Drug Therapy requiring intensive monitoring for toxicity (Heparin, Nitro, Insulin, Cardizem)? @ -No Were any procedures done? @ -No Diagnosis/symptom? @ -Epididymitis and orchitis Acute, or Chronic, or Acute on Chronic? @ -Acute Uncomplicated (without systemic symptoms) or Complicated (systemic symptoms)? @ -complicated Side effects of treatment? @ -No Exacerbation, Progression, or Severe Exacerbation? @ -No Poses a threat to life or bodily function? How? (Chest pain, [place], [place], pneumonia, PE, COPD, DKA, ARF, appy, cholecystitis, CVA, Diverticulitis, Homicidal, Suicidal, threat to staff... and all critical care pts) @ -No Disposition Clinical Impression: Epididymo-orchitis Disposition: HOME SELF-CARE Condition: Good Instructions (If sedation given, give patient instructions): Epididymo-Orchitis (ED) Prescriptions: Levofloxacin [Levaquin] 750 mg PO DAILY #10 tab Is patient prescribed a controlled substance at d/c from ED?: No Referrals: Ilene Franks MD [Primary Care Provider] - 1-2 days Time of Disposition: 12:55
--- NOTE | 2023-12-17 11:58 | US ---
EXAMINATION TYPE: US scrotum with doppler. Grayscale and color Doppler Duplex imaging performed of alex dangelo scrotum. DATE OF EXAM: 12/17/2023 COMPARISON: NONE CLINICAL INDICATION: Male, 73 years old with history of Testicular pain and swelling; pain in left te sticle today EXAM MEASUREMENTS: TESTICLES: Right Testicle: 3.6 x 2.6 x 2.0 cm Left Testicle: 4.2 x 3.2 x 2.5 cm EPIDIDYMIS HEAD: Right Epididymis: 0.6 cm Left Epididymis: 0.9 cm Doppler performed to assess for testicular vascularity; good bilateral color flow and waveforms are s een. There is no evidence of testicular torsion. Presence of hydroceles: No Presence of varicoceles: No Increased vascularity to the left testicle and epididymis. The left inguinal canal is heterogeneous a nd appears hypervascular as well. IMPRESSION: 1. Left epididymoorchitis. 2. No evidence for intratesticular mass. 3. Appropriate arterial and venous spectral waveforms to the testes.
[2023-12-17] MEDS: LEVOFLOXACIN 750 MG TAB PO STA (13:03)
[2023-12-17 13:08] VITALS: BP 120/73; PULSE 90; TEMP 98.3
== END 2023-12-17 13:09 | disposition home or self-care (01) ==
LOC: EC 10:25
DX: N45.3 Epididymo-orchitis (principal); Z87.891 Personal history of nicotine dependence; Z86.73 Personal history of transient ischemic attack (TIA), and cerebral infarction without residual deficits; Z90.49 Acquired absence of other specified parts of digestive tract
CPT/HCPCS: 76870; 93975; 99283

== ENCOUNTER 2024-01-04 12:13 | Observation (INO) | payer MEDICARE, OTHER ==
--- NOTE | 2024-01-04 12:30 | ED ---
General Adult HPI - General Chief complaint: Chest Pain Stated complaint: Chest Pain Time Seen by Provider: 01/04/24 12:20 Source: patient, RN notes reviewed, old records reviewed Mode of arrival: ambulatory Limitations: no limitations - History of Present Illness Initial comments: 73-year-old male presenting with left upper chest pain. Pain is sharp in nature. Pain began approximately 1 hour prior to arrival. Patient was at rest at the time. He has history of CAD and COPD. He denies cough or dyspnea. Denies vomiting. Denies abdominal pain. Does not radiate. - Related Data Home Medications Medication Instructions Recorded Confirmed Atorvastatin [Lipitor] 80 mg PO HS 10/29/18 01/04/24 Nitroglycerin 0.4 mg SL Q5M PRN 02/13/19 01/04/24 Omeprazole 20 mg PO DAILY 02/13/19 01/04/24 Cetirizine HCl [Zyrtec] 10 mg PO DAILY 10/20/21 01/04/24 Tamsulosin [Flomax] 0.4 mg PO BID 10/20/21 01/04/24 Albuterol Inhaler [Ventolin Hfa 2 puff INHALATION RT-Q6H PRN 11/14/22 01/04/24 Inhaler] traZODone HCL [Desyrel] 50 mg PO HS 11/14/22 01/04/24 Cyclobenzaprine [Flexeril] 5 mg PO TID 01/04/24 01/04/24 Docusate Sodium [Dok] 100 mg PO BID 01/04/24 01/04/24 Dorzolamide-Timol 2.23%/0.68% 1 drop BOTH EYES BID 01/04/24 01/04/24 [Cosopt] Erythromycin Ophth Oint [Romycin 1 applic RIGHT EYE DAILY 01/04/24 01/04/24 Ophth Oint] Ferrous Sulfate [Iron] 325 mg PO DAILY 01/04/24 01/04/24 HYDROcodone/APAP 10-325MG [[place] 1 tab PO Q6HR PRN 01/04/24 01/04/24 10-325] Isosorbide Mononitrate ER [Imdur] 60 mg PO DAILY 01/04/24 01/04/24 Levothyroxine Sodium [Synthroid] 25 mcg PO DAILY 01/04/24 01/04/24 Sulfamethox-Tmp 800-160Mg [Bactrim 1 tab PO Q12HR 01/04/24 01/04/24 DS 800-160 mg] Previous Rx's Medication Instructions Recorded Aspirin 81 mg PO DAILY #30 chew 06/24/18 Pregabalin [Lyrica] 150 mg PO BID #60 cap 05/05/23 Allergies Allergy/AdvReac Type Severity Reaction Status Date / Time No Known Allergies Allergy Verified 01/04/24 14:44 Review of Systems ROS Statement: Those systems with pertinent positive or pertinent negative responses have been documented in the HPI. ROS Other: All systems not noted in ROS Statement are negative. Past Medical History Past Medical History: Asthma, Coronary Artery Disease (CAD), COPD, CVA/TIA, Hyperlipidemia, Myocardial Infarction ([place]), Osteoarthritis (OA), Pneumonia, Prostate Disorder, Respiratory Disorder, Seizure Disorder Additional Past Medical History / Comment(s): COPD/Asthma, SOB with streneous activity, Coronary artery disease, Diverticulosis. Seizure disorder (NONE IN MANY YEARS) Degenerative Disc Disease with Astimulator placeme. He suffers from BPH, carpal tunnel disease, arrested several time at time heart attack (2017) Pt reports he may have had a TIA/CVA (2019 or 2020), blind in rt eye and cataracts in Left eye Last Myocardial Infarction Date:: 06/22/18 History of Any Multi-Drug Resistant Organisms: None Reported Past Surgical History: Adenoidectomy, Back Surgery, Cholecystectomy, Heart Catheterization With Stent, Orthopedic Surgery, Tonsillectomy Additional Past Surgical History / Comment(s): Multiple back surgeries including a pain stimulator in place/hardware, R knee surgery with hardware, L rotator cuff repair x 4/cadaver bone, colonoscopy Past Anesthesia/Blood Transfusion Reactions: No Reported Reaction Date of Last Stent Placement:: 06/22/18 Past Psychological History: No Psychological Hx Reported Smoking Status: Former smoker Past Alcohol Use History: None Reported Past Drug Use History: None Reported - Past Family History Father Family Medical History: Cancer Additional Family Medical History / Comment(s): Liver cancer. Mother Additional Family Medical History / Comment(s): Brain aneurysm Sister(s) Family Medical History: Cancer Additional Family Medical History / Comment(s): Lung cancer Brother(s) Family Medical History: No Reported History Family Family Medical History: Unable to Obtain General Exam Limitations: no limitations General appearance: alert, anxious Head exam: Present: atraumatic, normocephalic Eye exam: Present: normal appearance, PERRL ENT exam: Present: normal exam Neck exam: Present: normal inspection. Absent: tenderness, meningismus Respiratory exam: Present: normal lung sounds bilaterally. Absent: respiratory distress, wheezes Cardiovascular Exam: Present: regular rate, normal rhythm, systolic murmur GI/Abdominal exam: Present: soft, distended. Absent: tenderness, guarding, rebound Extremities exam: Present: normal inspection, normal capillary refill. Absent: pedal edema Neurological exam: Present: alert, oriented X3, CN II-XII intact. Absent: motor sensory deficit Psychiatric exam: Present: normal affect, normal mood Skin exam: Present: warm, dry, intact. Absent: cyanosis, diaphoretic Course Vital Signs 01/04/24 01/04/24 12:16 13:41 Temperature 98.1 F Pulse Rate 79 79 Respiratory 20 18 Rate Blood Pressure 139/72 113/72 O2 Sat by Pulse 97 94 L Oximetry Medical Decision Making - Medical Decision Making Was pt. sent in by a medical professional or institution (, PA, CREW DIRECTOR, urgent care, hospital, or fdc...) When possible be specific @ -[No] Did you speak to anyone other than the patient for history (EMS, parent, family, police, friend...)? What history was obtained from this source @ -[No] Did you review nursing and triage notes (agree or disagree)? Why? @ -[I reviewed and agree with nursing and triage notes] Were old charts reviewed (outside hosp., previous admission, EMS record, old EKG, old radiological studies, urgent care reports/EKG's, fdc records)? Report findings @ -[No old charts were reviewed] Differential Chest Pain: Stable Angina, Unstable Angina, STEMI, NSTEMI Aortic Dissection, Pneumothorax, Musculoskeletal, Esophageal Spasm GERD, Cholecystitis, Pancreatitis, Zoster, this is not meant to be an all-inclusive list. EKG interpreted by me (3pts min.). @ -Sinus rhythm rate of 76, [place] interval 144, QRS duration 89, QTc [address] segment elevation. X-rays interpreted by me (1pt min.). @ -Chest x-ray negative for acute cardiopulmonary findings CT interpreted by me (1pt min.). @ -[None done] U/S interpreted by me (1pt. min.). @ -[CT angiography of the chest shows a stable aortic root aneurysm without dissection, no central PE, no acute findingst What meds were considered but not given or refused? Why? @ -[None] Did you discuss the management of the patient with other professionals (professionals i.e. , PA, CREW DIRECTOR, lab, RT, psych nurse, social work assistant, sports apparel internship, teacher, staff submarine warfare officer, case finisher)? Give summary @ -[No] Was smoking cessation discussed for >3mins.? @ -[No] Was critical care preformed (if so, how long)? @ -[No] Were there social determinants of health that impacted care today? How? (Homelessness, low income, unemployed, alcoholism, drug addiction, transportation, low edu. Level, literacy, decrease access to med. care, usp, rehab)? @ -[No] Was there de-escalation of care discussed even if they declined (Discuss DNR or withdrawal of care, Hospice)? DNR status @ -COPD, CAD What co-morbidities impacted this encounter? (DM, HTN, Smoking, COPD, CAD, Cancer, CVA, ARF, Chemo, Hep., AIDS, mental health diagnosis, sleep apnea, morbid obesity)? @ -73-year-old male presenting with an episode of left-sided chest pain without typical features. EKG is sinus rhythm without ST segment elevation. Patient did have a positive D-dimer and this was evaluated with CT angiography which was negative for pulmonary embolism, no acute findings. The remainder of his laboratory testing was unremarkable. The patient will be kept in observation for cardiology consultation, serial cardiac enzymes, telemetry. Case discussed with Dr. Elmore who will admit. Was patient admitted / discharged? Hospital course, mention meds given and route, prescriptions, significant lab abnormalities, going to OR and other pertinent info. @ -[hospital course] Undiagnosed new problem with uncertain prognosis? @ -[No] Drug Therapy requiring intensive monitoring for toxicity (Heparin, Nitro, Insulin, Cardizem)? @ -[No] Were any procedures done? @ -[No] Diagnosis/symptom? @ -Chest pain rule out Acute, or Chronic, or Acute on Chronic? @ -Acute Uncomplicated (without systemic symptoms) or Complicated (systemic symptoms)? @ -[default] Side effects of treatment? @ -[No] Exacerbation, Progression, or Severe Exacerbation? @ -[No] Poses a threat to life or bodily function? How? (Chest pain, [place], AR, pneumonia, PE, COPD, DKA, ARF, appy, cholecystitis, CVA, Diverticulitis, Homicidal, Suicidal, threat to staff... and all critical care pts) @Yes, ACS - Lab Data Result diagrams: 01/04/24 12:20 01/04/24 12:20 Lab Results 01/04/24 01/04/24 01/04/24 Range/Units 12:20 12:20 12:20 WBC 7.5 (3.8-10.6) k/uL RBC 4.26 L (4.30-5.90) m/uL Hgb 13.1 (13.0-17.5) gm/dL Hct 41.3 (39.0-53.0) % MCV 97.1 (80.0-100.0) fL MCH 30.8 (25.0-35.0) pg MCHC 31.7 (31.0-37.0) g/dL RDW 16.0 H (11.5-15.5) % Plt Count 320 (150-450) k/uL MPV 7.7 Neutrophils % 66 % Lymphocytes % 23 % Monocytes % 5 % Eosinophils % 2 % Basophils % 1 % Neutrophils # 5.0 (1.3-7.7) k/uL Lymphocytes # 1.8 (1.0-4.8) k/uL Monocytes # 0.4 (0-1.0) k/uL Eosinophils # 0.2 (0-0.7) k/uL Basophils # 0.1 (0-0.2) k/uL Anisocytosis Slight PT 10.5 (10.0-12.5) sec INR 1.0 (<1.2) APTT 27.3 (22.0-30.0) sec D-Dimer 1.92 H (<0.60) mg/L FEU Sodium 134 L (137-145) mmol/L Potassium 4.4 (3.5-5.1) mmol/L Chloride 104 (98-107) mmol/L Carbon Dioxide 21 L (22-30) mmol/L Anion Gap 9 mmol/L BUN 18 (9-20) mg/dL Creatinine 1.38 H (0.66-1.25) mg/dL Est GFR (CKD-EPI)AfAm 58 (>60 ml/min/1.73 sqM) Est GFR (CKD-EPI)NonAf 50 (>60 ml/min/1.73 sqM) Glucose 99 (74-99) mg/dL Calcium 9.3 (8.4-10.2) mg/dL Magnesium 1.9 (1.6-2.3) mg/dL Total Bilirubin 0.4 (0.2-1.3) mg/dL AST 26 (17-59) U/L ALT 19 (4-49) U/L Alkaline Phosphatase 128 H (38-126) U/L Troponin I (0.000-0.034) ng/mL NT-Pro-B Natriuret Pep 107 pg/mL Total Protein 7.0 (6.3-8.2) g/dL Albumin 3.9 (3.5-5.0) g/dL 01/04/24 Range/Units 12:20 WBC (3.8-10.6) k/uL RBC (4.30-5.90) m/uL Hgb (13.0-17.5) gm/dL Hct (39.0-53.0) % MCV (80.0-100.0) fL MCH (25.0-35.0) pg MCHC (31.0-37.0) g/dL RDW (11.5-15.5) % Plt Count (150-450) k/uL MPV Neutrophils % % Lymphocytes % % Monocytes % % Eosinophils % % Basophils % % Neutrophils # (1.3-7.7) k/uL Lymphocytes # (1.0-4.8) k/uL Monocytes # (0-1.0) k/uL Eosinophils # (0-0.7) k/uL Basophils # (0-0.2) k/uL Anisocytosis PT (10.0-12.5) sec INR (<1.2) APTT (22.0-30.0) sec D-Dimer (<0.60) mg/L FEU Sodium (137-145) mmol/L Potassium (3.5-5.1) mmol/L Chloride (98-107) mmol/L Carbon Dioxide (22-30) mmol/L Anion Gap mmol/L BUN (9-20) mg/dL Creatinine (0.66-1.25) mg/dL Est GFR (CKD-EPI)AfAm (>60 ml/min/1.73 sqM) Est GFR (CKD-EPI)NonAf (>60 ml/min/1.73 sqM) Glucose (74-99) mg/dL Calcium (8.4-10.2) mg/dL Magnesium (1.6-2.3) mg/dL Total Bilirubin (0.2-1.3) mg/dL AST (17-59) U/L ALT (4-49) U/L Alkaline Phosphatase (38-126) U/L Troponin I <0.012 (0.000-0.034) ng/mL NT-Pro-B Natriuret Pep pg/mL Total Protein (6.3-8.2) g/dL Albumin (3.5-5.0) g/dL Disposition Clinical Impression: Chest pain Disposition: ADMITTED IP TO THIS [facility] Condition: Stable Is patient prescribed a controlled substance at d/c from ED?: No Time of Disposition: 15:11
[2024-01-04 12:49] LABS: Anisocytosis Slight; Basophils # (A) 0.1 k/uL (0-0.2); Basophils % (A) 1 %; Eosinophils # (A) 0.2 k/uL (0-0.7); Eosinophils % (A) 2 %; HCT 41.3 % (39.0-53.0); HGB 13.1 gm/dL (13.0-17.5); Lymphocytes # (A) 1.8 k/uL (1.0-4.8); Lymphocytes % (A) 23 %; MCH 30.8 pg (25.0-35.0); MCHC 31.7 g/dL (31.0-37.0); MCV 97.1 fL (80.0-100.0); Mean Platelet Volume 7.7; Monocytes # (A) 0.4 k/uL (0-1.0); Monocytes % (A) 5 %; Neutrophils % (A) 66 %; Platelet Count 320 k/uL (150-450); RBC 4.26 m/uL (4.30-5.90); WBC 7.5 k/uL (3.8-10.6)
[2024-01-04 12:58] LABS: ALT 19 U/L (4-49); AST 26 U/L (17-59); African American GFR (CKD) 58 (>60 ml/min/1.73 sqM); Albumin 3.9 g/dL (3.5-5.0); Alkaline Phosphatase 128 U/L (38-126); Anion Gap 9 mmol/L; Blood Urea Nitrogen 18 mg/dL (9-20); Calcium 9.3 mg/dL (8.4-10.2); Carbon Dioxide 21 mmol/L (22-30); Chloride 104 mmol/L (98-107); Glucose 99 mg/dL (74-99); Magnesium 1.9 mg/dL (1.6-2.3); Non-African American GFR(CKD) 50 (>60 ml/min/1.73 sqM); Potassium 4.4 mmol/L (3.5-5.1); Sodium 134 mmol/L (137-145); Total Bilirubin 0.4 mg/dL (0.2-1.3)
[2024-01-04 13:06] LABS: NT-Pro-B-Type Natriuretic Pept 107 pg/mL
[2024-01-04 13:19] LABS: Partial Thromboplastin Time 27.3 sec (22.0-30.0); Prothrombin Time 10.5 sec (10.0-12.5)
[2024-01-04] MEDS: HYDROmorphone 0.5 MG/0.5 ML SYRINGE IVP STA (13:29)
--- NOTE | 2024-01-04 13:46 | XR ---
EXAMINATION TYPE: XR chest 2V DATE OF EXAM: 01/04/2024 COMPARISON: 05/03/2023 HISTORY: Shortness of breath TECHNIQUE: Frontal and lateral views of the chest are obtained. FINDINGS: Scattered senescent parenchymal changes noted. Hyperinflation compatible with COPD. No evidence for infiltrate. No evidence for atelectasis. Heart size is stable. Mediastinal structures are stable and grossly unremarkable. No evidence for hilar prominence. Degenerative changes dorsal spine. IMPRESSION: 1. No evidence for acute pulmonary disease.
--- NOTE | 2024-01-04 14:28 | CT ---
EXAMINATION TYPE: CT angio chest DATE OF EXAM: 01/04/2024 COMPARISON: 11/14/2022 HISTORY: 73-year-old male Chest pain and elevated d-dimer. TECHNIQUE: Contiguous axial scanning of the chest after the administration of 100ml mL of Isovue 370. Coronal/sagittal MIP reconstructions performed CT DLP: 472.1mGycm. Automatic exposure control utilized for a dose reduction. FINDINGS: Heart normal size without pericardial effusion. Scattered three-vessel coronary artery calcifications . Aneurysm aortic root 4.3 cm and ascending portion 4.1 cm. Conventional arch vessel branching anatomy. No evidence for aortic dissection. Borderline enlarged lower right paratracheal node at 1.3 cm is unchanged. Calcified subcarinal node c ompatible with prior granulomatous Borderline satisfactory pulmonary nodule system. No large central or definite lobar branch embolus. N o embolus seen within the upper mid lungs and lower lungs are severely limited due to patient breathi ng through the scan and emboli in this location cannot be excluded on the basis of this exam. Mild generalized anasarca changes. Moderate to advanced emphysema. Focal pleural parenchymal scarring is suspected with rounded atelectasis right middle lobe. Strandy a telectasis or scarring inferior lingula. Chronic appearing smooth pleural thickening throughout the r ight mid to lower lung. Biapical pleural-parenchymal scarring. 8 mm subpleural pulmonary nodule anterior left upper lobe is unchanged. Abdomen: The visualized upper abdomen shows no gross abnormality. Bones: Spinal stimulator array centered along the mid to lower thoracic spinal canal. Posterior thora columbar fusion partially visualized extending from T10 down. Moderate to severe degenerative disc di sease above at T9-T10. IMPRESSION: 1. Assessment for pulmonary emboli in the lower lungs is nondiagnostic as the patient was breathing t hrough the scan. No large central embolus or embolus seen within the upper or mid lungs. 2. Osteopenia with moderate to advanced emphysema and scattered areas of pleural parenchymal scarring . Suspect rounded atelectasis within the right middle lobe. 3. Scattered three-vessel coronary artery calcifications. 4. 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
[2024-01-04] MEDS ORDERED: ONDANSETRON 4 MG/2 ML VIAL IVP PRN (15:10)
[2024-01-04] MEDS ORDERED: NALOXONE 0.4 MG/ML 1 ML VIAL IV PRN (15:10)
[2024-01-04] MEDS ORDERED: HYDROmorphone 0.5 MG/0.5 ML SYRINGE IVP PRN (15:10)
[2024-01-04] MEDS: ASPIRIN 325 MG TAB PO STA (15:47)
[2024-01-04] MEDS ORDERED: NITROGLYCERIN SL TABS 0.4 MG TAB SUBLINGUAL PRN (19:56)
[2024-01-04] MEDS ORDERED: ALBUTEROL NEBULIZED 2.5 MG/3 ML INHALATION PRN (19:56)
--- NOTE | 2024-01-04 20:05 | P.HPIM ---
History of Present Illness Patient is a pleasant 73 years old male with past medical history of coronary artery disease status post stent in the diagonal branch of the left circumflex and chronically occluded right coronary artery Catheter of the heart in 2018, he has baseline ejection fraction of 50 to 55% per echocardiogram on 2021. Presents today with chest pain started this morning about 7.5/10 in severity in the left side nonradiating felt like something heavy sitting on his chest with no relieving or precipitating factors He still smokes about 2 cigarettes/day with recovery and sometimes 4 to 5 cigarettes, he was counseled to quit and he agrees to the nicotine patch No alcohol no illicit drugs. No dyspnea no coughing. No change in urine or bowel habits. No headache dizziness confusion. No chills. He is hemodynamically stable. Labs unremarkable including CBC, BMP and liver enzymes except for creatinine of 1.3 which is at baseline. D-dimer was elevated at 1.9 was troponin x 2 were negative less than 0.012. proBNP is low at 107. CTA of the chest was done because of elevated D-dimer and showing no pulmonary embolism but has emphysema and aortic aneurysm of 4.3 cm Patient is taking aspirin 81 mg at home increased to 325 mg tonight. Review of Systems Review of systems CONSTITUTIONAL: No fever, no malaise, no fatigue. HEENT: No recent visual problems or hearing problems. Denied any sore throat. CARDIOVASCULAR: No orthopnea, PND, no palpitations, no syncope. PULMONARY: No shortness of breath, no cough, no hemoptysis. GASTROINTESTINAL: No diarrhea, no nausea, no vomiting, no abdominal pain. Nor moactive bowel sounds. NEUROLOGICAL: No headaches, no weakness, no numbness. HEMATOLOGICAL: Denies any bleeding or petechiae. GENITOURINARY: Denies any burning micturition, frequency, or urgency. MUSCULOSKELETAL/RHEUMATOLOGICAL: Denies any joint pain, swelling, or any muscle pain. ENDOCRINE: Denies any polyuria or polydipsia. Past Medical History Past Medical History: Asthma, Coronary Artery Disease (CAD), COPD, CVA/TIA, Hyperlipidemia, Myocardial Infarction ([place]), Osteoarthritis (OA), Pneumonia, Prostate Disorder, Respiratory Disorder, Seizure Disorder Additional Past Medical History / Comment(s): COPD/Asthma, SOB with streneous activity, Coronary artery disease, Diverticulosis. Seizure disorder (NONE IN MANY YEARS) Degenerative Disc Disease with Astimulator placeme. He suffers from BPH, carpal tunnel disease, arrested several time at time heart attack (2018) Pt reports he may have had a TIA/CVA (2019 or 2020), blind in rt eye and cataracts in Left eye Last Myocardial Infarction Date:: 06/22/18 History of Any Multi-Drug Resistant Organisms: None Reported Past Surgical History: Adenoidectomy, Back Surgery, Cholecystectomy, Heart Catheterization With Stent, Orthopedic Surgery, Tonsillectomy Additional Past Surgical History / Comment(s): Multiple back surgeries including a pain stimulator in place/hardware, R knee surgery with hardware, L rotator cuff repair x 4/cadaver bone, colonoscopy Past Anesthesia/Blood Transfusion Reactions: No Reported Reaction Date of Last Stent Placement:: 06/22/18 Past Psychological History: No Psychological Hx Reported Smoking Status: Former smoker Past Alcohol Use History: None Reported Past Drug Use History: None Reported - Past Family History Father Family Medical History: Cancer Additional Family Medical History / Comment(s): Liver cancer. Mother Additional Family Medical History / Comment(s): Brain aneurysm Sister(s) Family Medical History: Cancer Additional Family Medical History / Comment(s): Lung cancer Brother(s) Family Medical History: No Reported History Family Family Medical History: Unable to Obtain Medications and Allergies Home Medications Medication Instructions Recorded Confirmed Type Aspirin 81 mg PO DAILY #30 chew 06/24/18 01/04/24 Rx Atorvastatin [Lipitor] 80 mg PO HS 10/29/18 01/04/24 History Nitroglycerin 0.4 mg SL Q5M PRN 02/13/19 01/04/24 History Omeprazole 20 mg PO DAILY 02/13/19 01/04/24 History Cetirizine HCl [Zyrtec] 10 mg PO DAILY 10/20/21 01/04/24 History Tamsulosin [Flomax] 0.4 mg PO BID 10/20/21 01/04/24 History Albuterol Inhaler [Ventolin Hfa 2 puff INHALATION RT-Q6H PRN 11/14/22 01/04/24 History Inhaler] traZODone HCL [Desyrel] 50 mg PO HS 11/14/22 01/04/24 History Pregabalin [Lyrica] 150 mg PO BID #60 cap 05/05/23 01/04/24 Rx Cyclobenzaprine [Flexeril] 5 mg PO TID 01/04/24 01/04/24 History Docusate Sodium [Dok] 100 mg PO BID 01/04/24 01/04/24 History Dorzolamide-Timol 2.23%/0.68% 1 drop BOTH EYES BID 01/04/24 01/04/24 History [Cosopt] Erythromycin Ophth Oint [Romycin 1 applic RIGHT EYE DAILY 01/04/24 01/04/24 History Ophth Oint] Ferrous Sulfate [Iron] 325 mg PO DAILY 01/04/24 01/04/24 History HYDROcodone/APAP 10-325MG [[place] 1 tab PO Q6HR PRN 01/04/24 01/04/24 History 10-325] Isosorbide Mononitrate ER [Imdur] 60 mg PO DAILY 01/04/24 01/04/24 History Levothyroxine Sodium [Synthroid] 25 mcg PO DAILY 01/04/24 01/04/24 History Sulfamethox-Tmp 800-160Mg [Bactrim 1 tab PO Q12HR 01/04/24 01/04/24 History DS 800-160 mg] Allergies Allergy/AdvReac Type Severity Reaction Status Date / Time No Known Allergies Allergy Verified 01/04/24 14:44 Physical Exam Vitals: Vital Signs Temp Pulse Resp BP Pulse Ox 01/04/24 18:17 98.5 F 73 16 112/75 93 L 01/04/24 15:55 97.8 F 82 18 125/86 96 01/04/24 13:41 79 18 113/72 94 L 01/04/24 12:16 98.1 F 79 20 139/72 97 Intake and Output 01/04/24 01/04/24 01/04/24 06:59 14:59 22:59 Other: Weight 84.822 kg GENERAL: The patient is alert and oriented x3, not in any acute distress. Well developed, well nourished. HEENT: Pupils are round and equally reacting to light. EOMI. No scleral icterus. No conjunctival pallor. Normocephalic, atraumatic. No pharyngeal erythema. No thyromegaly. CARDIOVASCULAR: S1 and S2 present. No murmurs, rubs, or gallops. PULMONARY: Chest is clear to auscultation, no wheezing , no crackles. ABDOMEN: Soft, nontender, nondistended, normoactive bowel sounds. No palpable organomegaly. MUSCULOSKELETAL: No joint swelling or deformity. EXTREMITIES: No cyanosis, clubbing, or pedal edema. NEUROLOGICAL: Gross neurological examination did not reveal any focal deficits. SKIN: No rashes. no petechiae. Results CBC & Chem 7: 01/04/24 12:20 01/04/24 12:20 Labs: Abnormal Lab Results - Last 24 Hours (Table) 01/04/24 01/04/24 01/04/24 Range/Units 12:20 12:20 12:20 RBC 4.26 L (4.30-5.90) m/uL RDW 16.0 H (11.5-15.5) % D-Dimer 1.92 H (<0.60) mg/L FEU Sodium 134 L (137-145) mmol/L Carbon Dioxide 21 L (22-30) mmol/L Creatinine 1.38 H (0.66-1.25) mg/dL Alkaline Phosphatase 128 H (38-126) U/L Assessment and Plan Assessment: Chest pain mostly related to the heart Coronary artery disease s/p stents Nicotine dependence Aortic aneurysm 4.3 cm Emphysema with no acute exacerbation Chronic kidney disease stage III Plan: Continue with aspirin Serial troponin Cardiology consult Nicotine patch Labs and medication were reviewed.. Continue same treatment. Continue with symptomatic treatment. Resume home medication. Monitor labs and vitals. DVT and GI prophylaxis. Further recommendations as per clinical course of the patient DVT prophylaxis: Subcutaneous heparin GI Prophylaxis: Pepcid PT/OT: Pending Prognosis is guarded
[2024-01-04] MEDS: FAMOTIDINE 20 MG/2 ML VIAL IV SCH (21:24)
[2024-01-04] MEDS: NICOTINE 14MG/24HR PATCH TRANSDERM SCH (21:24)
[2024-01-04] MEDS: HEPARIN SODIUM,PORCINE 5,000 UNIT/ML 1 ML VIAL SQ SCH (21:24)
[2024-01-04] MEDS: DOCUSATE 100 MG CAP PO SCH (21:25)
[2024-01-04] MEDS: traZODone HCL 50 MG TAB PO SCH (21:25)
[2024-01-04] MEDS: PREGABALIN 75 MG CAP PO SCH (21:25)
[2024-01-04] MEDS: TAMSULOSIN 0.4 MG CAP.ER.24H PO SCH (21:25)
[2024-01-04] MEDS: DORZOLAMIDE-TIMOLOL 2.23%/0.68 10ML BTL BOTH EYES SCH (21:25)
[2024-01-04] MEDS: ATORVASTATIN 80 MG TAB PO SCH (21:25)
[2024-01-04] MEDS: CYCLOBENZAPRINE 5 MG TAB PO SCH (21:26)
[2024-01-05] MEDS: LEVOTHYROXINE 25 MCG TAB PO SCH (06:07)
[2024-01-05 07:52] VITALS: RESP 18
[2024-01-05] MEDS: ERYTHROMYCIN 5 MG/GM OPHTH OINT 3.5 GM TUBE RIGHT EYE SCH (09:07)
[2024-01-05] MEDS: METOPROLOL SUCCINATE (ER) 25 MG TAB.ER.24H PO SCH (09:08)
[2024-01-05] MEDS: FAMOTIDINE 20 MG TAB PO SCH (09:08)
[2024-01-05] MEDS: ISOSORBIDE MONONITRATE ER 60 MG TAB.ER.24H PO SCH (09:08)
[2024-01-05] MEDS: FERROUS SULFATE 325 MG TAB PO SCH (09:08)
[2024-01-05] MEDS: LORATADINE 10 MG TAB PO SCH (09:08)
[2024-01-05] MEDS: ASPIRIN 81 MG PO SCH (09:08)
[2024-01-05] MEDS: HYDROcodone/APAP 10-325MG 1 EACH TAB PO PRN (09:11)
--- NOTE | 2024-01-05 10:18 | P.CRDCN ---
History of Present Illness Consult date: 01/05/24 Consult reason: chest pain History of present illness: This is a 73-year-old male patient of Dr. Bolivar with past medical history of coronary artery disease status post stent, hypertension, dyslipidemia, family history of premature coronary artery disease, COPD, and active tobacco use and dependence. We have been asked to evaluate the patient for chest pain. Patient presented to the hospital due to chest pain. He states that he was sitting at the kitchen table developed pains in the left side of his chest. He then walked down the shrestha and also had some chest pain. He has never had pain like this before and it was not similar to the pain he had with his stent. He states he does not have any chest pain now. He states he occasionally has some dizziness or lightheadedness. He denies history of bradycardia. He states he has been taking all of his medications as directed. He is an active smoker and states he quit yesterday. No alcohol use. He states he feels good in general. Blood pressure 93/52, heart rate 70, pulse ox 91% on room air, afebrile. EKG: Sinus rhythm with no acute ST-T wave changes. Chest x-ray: No acute process CTA of the chest reveals nondiagnostic for pulmonary emboli as patient was breathing throughout exam. No large central embolus or embolus seen within the upper or mid lungs. Osteopenia. Moderate to advanced emphysema and scattered areas of pleural-parenchymal scarring. Suspect rounded atelectasis within the right middle lobe. Scattered three-vessel coronary artery calcifications. 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 Laboratory studies: WBC 7.5, hemoglobin 13.1. Sodium 134, potassium 4.4, BUN 18 and creatinine 1.38. Troponin negative x 3. Alkaline phosphatase 128. proBNP 107. Home cardiac medications: Aspirin 81 mg daily, atorvastatin 80 mg at bedtime, Imdur 60 mg daily, nitroglycerin sublingually as needed, also on levothyroxine. Cardiac catheterization 02/19/2019 revealed a 50% mid LAD, 20% mid circumflex, 60% proximal OM1, 100% mid RCA, right dominant, no evidence of restenosis in the OM and diagonal branch stents. LAD FFR 86%. PCI with stent in the mid D1 10/29/2018 PCI with stent to the mid circumflex times Echocardiogram performed 02/03/2022 reveals EF 50 to 55%. Technically difficult study. Some of the valve structures are not well-seen. No significant mitral or tricuspid insufficiency. Lexiscan Cardiolite stress test performed in the office on 09/30/2022 reveals a nondiagnostic electrocardiographic stress testing. Normal myocardial perfusion imaging with normal gated SPECT images. No evidence of stress-induced ischemia. Dobutamine stress echocardiogram performed on 11/15/2022 revealed technically an adequate stress test as patient reached 80% of maximum predicted heart rate. Normal stress EKG and echo response to dobutamine infusion without any evidence of inducible ischemia. Review Of Systems: At the time of my exam: CONSTITUTIONAL: Denies fever or chills. HEENT: Denies blurred vision, vision changes, or eye pain. Denies hemoptysis CARDIOVASCULAR: Denies chest pain. Denies orthopnea. Denies PND. Denies palpitations RESPIRATORY: Denies shortness of breath. GASTROINTESTINAL: Denies abdominal pain. Denies nausea or vomiting. HEMATOLOGIC: Denies bleeding disorders. GENITOURINARY: Denies any blood in urine. SKIN: Denies puritis. Denies rash. Physical examination: Gen: This is a 73-year-old male in no acute distress VS: reviewed HEENT: Head is atraumatic, normocephalic. Pupils equal, round. Sclerae is anicteric. NECK: Supple. No JVD. LUNGS: Clear to auscultation. No wheezes or rhonchi. No intercostal retractions. HEART: Regular rate and rhythm. 2/6 systolic ejection murmur at the base. ABDOMEN: Soft No tenderness. EXTREMITIES: No pedal edema. No calf tenderness. NEUROLOGICAL: Patient is awake, alert and oriented x3. Assessment: Atypical chest pain, acute coronary syndrome has been ruled out with negative troponins x 3 History of coronary artery disease with previous stenting Hypertension Dyslipidemia COPD Tobacco use and dependence Plan: Resume patient's home cardiac medications Start patient on metoprolol succinate 25 mg daily Obtain 2-D echocardiogram and Doppler study to assess cardiac structure and function If echocardiogram is unremarkable, patient is cleared for discharge May follow- up with Dr. Bolivar in 1 week Smoking cessation. Patient will be provided the [place] quit line information at discharge. Further recommendations to follow based upon clinical course Thank you kindly for this consultation. Nurse practitioner note has been reviewed, I agree with documented findings and plan of care. Patient was seen and examined. Past Medical History Past Medical History: Asthma, Coronary Artery Disease (CAD), COPD, CVA/TIA, Hyperlipidemia, Myocardial Infarction (AR), Osteoarthritis (OA), Pneumonia, Prostate Disorder, Respiratory Disorder, Seizure Disorder Additional Past Medical History / Comment(s): COPD/Asthma, SOB with streneous activity, Coronary artery disease, Diverticulosis. Seizure disorder (NONE IN MANY YEARS) Degenerative Disc Disease with Astimulator placeme. He suffers from BPH, carpal tunnel disease, arrested several time at time heart attack (2017) Pt reports he may have had a TIA/CVA (2019 or 2020), blind in rt eye and cataracts in Left eye Last Myocardial Infarction Date:: 06/22/18 History of Any Multi-Drug Resistant Organisms: None Reported Past Surgical History: Adenoidectomy, Back Surgery, Cholecystectomy, Heart Catheterization With Stent, Orthopedic Surgery, Tonsillectomy Additional Past Surgical History / Comment(s): Multiple back surgeries including a pain stimulator in place/hardware, R knee surgery with hardware, L rotator cuff repair x 4/cadaver bone, colonoscopy Past Anesthesia/Blood Transfusion Reactions: No Reported Reaction Date of Last Stent Placement:: 06/22/18 Past Psychological History: No Psychological Hx Reported Additional Psychological History / Comment(s): Pt resides alone in an apartment. He uses a cane prn. He drives. Smoking Status: Former smoker Past Alcohol Use History: None Reported Past Drug Use History: None Reported - Past Family History Father Family Medical History: Cancer Additional Family Medical History / Comment(s): Liver cancer. Mother Additional Family Medical History / Comment(s): Brain aneurysm Sister(s) Family Medical History: Cancer Additional Family Medical History / Comment(s): Lung cancer Brother(s) Family Medical History: No Reported History Family Family Medical History: Unable to Obtain Medications and Allergies Home Medications Medication Instructions Recorded Confirmed Type Aspirin 81 mg PO DAILY #30 chew 06/24/18 01/04/24 Rx Atorvastatin [Lipitor] 80 mg PO HS 10/29/18 01/04/24 History Nitroglycerin 0.4 mg SL Q5M PRN 02/13/19 01/04/24 History Omeprazole 20 mg PO DAILY 02/13/19 01/04/24 History Cetirizine HCl [Zyrtec] 10 mg PO DAILY 10/20/21 01/04/24 History Tamsulosin [Flomax] 0.4 mg PO BID 10/20/21 01/04/24 History Albuterol Inhaler [Ventolin Hfa 2 puff INHALATION RT-Q6H PRN 11/14/22 01/04/24 History Inhaler] traZODone HCL [Desyrel] 50 mg PO HS 11/14/22 01/04/24 History Pregabalin [Lyrica] 150 mg PO BID #60 cap 05/05/23 01/04/24 Rx Cyclobenzaprine [Flexeril] 5 mg PO TID 01/04/24 01/04/24 History Docusate Sodium [Dok] 100 mg PO BID 01/04/24 01/04/24 History Dorzolamide-Timol 2.23%/0.68% 1 drop BOTH EYES BID 01/04/24 01/04/24 History [Cosopt] Erythromycin Ophth Oint [Romycin 1 applic RIGHT EYE DAILY 01/04/24 01/04/24 History Ophth Oint] Ferrous Sulfate [Iron] 325 mg PO DAILY 01/04/24 01/04/24 History HYDROcodone/APAP 10-325MG [[place] 1 tab PO Q6HR PRN 01/04/24 01/04/24 History 10-325] Isosorbide Mononitrate ER [Imdur] 60 mg PO DAILY 01/04/24 01/04/24 History Levothyroxine Sodium [Synthroid] 25 mcg PO DAILY 01/04/24 01/04/24 History Sulfamethox-Tmp 800-160Mg [Bactrim 1 tab PO Q12HR 01/04/24 01/04/24 History DS 800-160 mg] Allergies Allergy/AdvReac Type Severity Reaction Status Date / Time No Known Allergies Allergy Verified 01/04/24 14:44 Physical Exam Vitals: Vital Signs Temp Pulse Pulse Resp BP BP Pulse Ox 01/05/24 03:30 97.6 F 70 17 93/52 91 L 01/04/24 20:55 97.4 F L 69 18 156/81 94 L 01/04/24 19:56 71 16 107/72 95 01/04/24 18:17 98.5 F 73 16 112/75 93 L 01/04/24 15:55 97.8 F 82 18 125/86 96 01/04/24 13:41 79 18 113/72 94 L 01/04/24 12:16 98.1 F 79 20 139/72 97 Intake and Output 01/04/24 01/05/24 01/05/24 22:59 06:59 14:59 Other: # Voids 1 Weight 84.822 kg Results 01/04/24 12:20 01/04/24 12:20 Cardiac Enzymes 01/04/24 01/04/24 01/04/24 Range/Units 12:20 12:20 16:21 AST 26 (17-59) U/L Troponin I <0.012 <0.012 (0.000-0.034) ng/mL 01/04/24 Range/Units 19:54 AST (17-59) U/L Troponin I <0.012 (0.000-0.034) ng/mL Coagulation 01/04/24 Range/Units 12:20 PT 10.5 (10.0-12.5) sec APTT 27.3 (22.0-30.0) sec CBC 01/04/24 Range/Units 12:20 WBC 7.5 (3.8-10.6) k/uL RBC 4.26 L (4.30-5.90) m/uL Hgb 13.1 (13.0-17.5) gm/dL Hct 41.3 (39.0-53.0) % Plt Count 320 (150-450) k/uL Comprehensive Metabolic Panel 01/04/24 Range/Units 12:20 Sodium 134 L (137-145) mmol/L Potassium 4.4 (3.5-5.1) mmol/L Chloride 104 (98-107) mmol/L Carbon Dioxide 21 L (22-30) mmol/L BUN 18 (9-20) mg/dL Creatinine 1.38 H (0.66-1.25) mg/dL Glucose 99 (74-99) mg/dL Calcium 9.3 (8.4-10.2) mg/dL AST 26 (17-59) U/L ALT 19 (4-49) U/L Alkaline Phosphatase 128 H (38-126) U/L Total Protein 7.0 (6.3-8.2) g/dL Albumin 3.9 (3.5-5.0) g/dL Current Medications Generic Name Dose Route Start Last Admin Trade Name Freq PRN Reason Stop Dose Admin Hydrocodone Bitart/Acetaminophen 1 each 01/04/24 19:56 Hydrocodone/Apap 10-325mg 1 Each Tab PO Q6HR PRN Pain Albuterol Sulfate 2.5 mg 01/04/24 19:56 Albuterol Nebulized 2.5 Mg/3 Ml INHALATION RT-Q6H PRN Shortness Of Breath Aspirin 81 mg 01/05/24 09:00 Aspirin 81 Mg PO DAILY YULIA Atorvastatin Calcium 80 mg 01/04/24 21:00 01/04/24 21:25 Atorvastatin 80 Mg Tab PO 80 mg HS YULIA Administration Cyclobenzaprine HCl 5 mg 01/04/24 22:00 01/04/24 21:26 Cyclobenzaprine 5 Mg Tab PO 5 mg TID YULIA Administration Docusate Sodium 100 mg 01/04/24 21:00 01/04/24 21:25 Docusate 100 Mg Cap PO 100 mg BID YULIA Administration Dorzolamide/Timolol 1 drops 01/04/24 21:00 01/04/24 21:25 Dorzolamide-Timolol 2.23%/0.68 10ml Btl BOTH EYES 1 drops BID YULIA Administration Erythromycin 1 applic 01/05/24 09:00 Erythromycin 5 Mg/Gm Ophth Oint 3.5 Gm Tube RIGHT EYE DAILY [facility] Famotidine 20 mg 01/05/24 09:00 Famotidine 20 Mg Tab PO DAILY [facility] Ferrous Sulfate 325 mg 01/05/24 09:00 Ferrous Sulfate 325 Mg Tab PO DAILY [facility] Heparin Sodium (Porcine) 5,000 unit 01/04/24 21:00 01/04/24 21:24 Heparin Sodium,Porcine 5,000 Unit/Ml 1 Ml Vial SQ 5,000 unit Q12HR YULIA Administration Hydromorphone HCl 0.5 mg 01/04/24 15:10 Hydromorphone 0.5 Mg/0.5 Ml Syringe IVP Q3HR PRN Moderate Pain (Scale 4 to 6) Isosorbide Mononitrate 60 mg 01/05/24 09:00 Isosorbide Mononitrate Er 60 Mg Tab.Er.24h PO DAILY [facility] Levothyroxine Sodium 25 mcg 01/05/24 06:30 01/05/24 06:07 Levothyroxine 25 Mcg Tab PO 25 mcg DAILY@0630 YULIA Administration Loratadine 10 mg 01/05/24 09:00 Loratadine 10 Mg Tab PO DAILY YULIA Naloxone HCl 0.2 mg 01/04/24 15:10 Naloxone 0.4 Mg/Ml 1 Ml Vial IV Q2M PRN Opioid Reversal Nicotine 1 patch 01/04/24 20:15 01/04/24 21:24 Nicotine 14mg/24hr Patch TRANSDERM 1 patch DAILY YULIA Administration Nitroglycerin 0.4 mg 01/04/24 19:56 Nitroglycerin Sl Tabs 0.4 Mg Tab SUBLINGUAL Q5M PRN Chest Pain Ondansetron HCl 4 mg 01/04/24 15:10 Ondansetron 4 Mg/2 Ml Vial IVP Q8HR PRN Nausea And Vomiting Pregabalin 150 mg 01/04/24 21:00 01/04/24 21:25 Pregabalin 75 Mg Cap PO 150 mg BID YULIA Administration Tamsulosin HCl 0.4 mg 01/04/24 21:00 01/04/24 21:25 Tamsulosin 0.4 Mg Cap.Er.24h PO 0.4 mg BID YULIA Administration Trazodone HCl 50 mg 01/04/24 21:00 01/04/24 21:25 Trazodone Hcl 50 Mg Tab PO 50 mg HS YULIA Administration Intake and Output 01/04/24 01/05/24 01/05/24 22:59 06:59 14:59 Other: # Voids 1 Weight 84.822 kg 01/04/24 12:20 01/04/24 12:20
[2024-01-05 14:26] VITALS: BP 112/56; PULSE 73; TEMP 97.7
--- NOTE | 2024-01-05 17:57 | CA ---
Transthoracic Echo Report Name: Matthieu Thomas Age: 73 Gender: M : 1950 Exam Date: 01/05/2024 09:37 Exam Location: [facility] Ht (in): 66 Wt (lb): 187 Ordering Physician: Ghassan Thorpe MD ([email or web address]) Attending/Referring Phys: [employer] Turner Mónica Acosta RDCS Procedure CPT: Indications: LVH Cardiac Hx: Technical Quality: Good Contrast 1: Total Dose (mL): Contrast 2: Total Dose (mL): MEASUREMENTS (Male / Female) Normal Values 2D ECHO LV Diastolic Diameter PLAX 5.1 cm 4.2 - 5.9 / 3.9 - 5.3 cm LV Systolic Diameter PLAX 3.2 cm IVS Diastolic Thickness 0.9 cm 0.6 - 1.0 / 0.6 - 0.9 cm LVPW Diastolic Thickness 1.1 cm 0.6 - 1.0 / 0.6 - 0.9 cm LV Relative Wall Thickness 0.4 RV Internal Dim ED PLAX 3.2 cm LA Systolic Diameter LX 3.2 cm 3.0 - 4.0 / 2.7 - 3.8 cm LV Diastolic Volume MOD BP 81.0 cm??? 67 - 155 / 56 - 104 cm??? LV Systolic Volume MOD BP 34.9 cm??? 22 - 58 / 19 - 49 cm??? LV Ejection Fraction MOD BP 57.0 % >= 55 % LV Cardiac Index MOD BP 1444.6 cm???/min???m??? LV Diastolic Volume MOD 4C 78.1 cm??? LV Systolic Volume MOD 4C 28.0 cm??? LV Ejection Fraction MOD 4C 64.1 % LV Cardiac Index MOD 4C 1568.5 cm???/min???m??? LV Diastolic Length 4C 8.2 cm LV Systolic Length 4C 5.8 cm LV Diastolic Volume MOD 2C 81.8 cm??? LV Systolic Volume MOD 2C 37.5 cm??? LV Ejection Fraction MOD 2C 54.1 % LV Cardiac Index MOD 2C 1385.8 cm???/min???m??? LV Diastolic Length 2C 7.9 cm LV Systolic Length 2C 6.8 cm LA Volume 37.5 cm??? 18 - 58 / 22 - 52 cm??? LA Volume Index 18.6 cm???/m??? 16 - 28 cm???/m??? M-MODE Aortic Root Diameter MM 4.2 cm AV Cusp Separation MM 2.5 cm DOPPLER AV Peak Velocity 170.9 cm/s AV Peak Gradient 11.7 mmHg MV Area PHT 1.9 cm??? Mitral E Point Velocity 67.6 cm/s Mitral A Point Velocity 95.7 cm/s Mitral E to A Ratio 0.7 MV Deceleration Time 403.9 ms TR Peak Velocity 230.2 cm/s TR Peak Gradient 21.2 mmHg Right Ventricular Systolic Press 26.2 mmHg FINDINGS Left Ventricle Left ventricular ejection fraction is estimated at 55-60 %. Left ventricular cavity size normal. Left ventricular wall thickness normal. Right Ventricle Normal right ventricular size and function. Right ventricular systolic pressure within normal limits. Right Atrium Normal right atrial size. No right atrial thrombus or mass seen. Left Atrium Normal left atrial size. No left atrial thrombus or mass present. Mitral Valve Structurally normal mitral valve. Trace mitral regurgitation. Aortic Valve Aortic valve not well visualized. No aortic valve stenosis or regurgitation. Tricuspid Valve Structurally normal tricuspid valve. Mild tricuspid regurgitation. Pulmonic Valve Pulmonic valve not well visualized. Pericardium No pericardial effusion. Aorta Mild aortic dilatation at the level of the sinuses of valsalva 42 mm CONCLUSIONS Left ventricular ejection fraction is estimated at 55-60 %. No obvious regional wall motion abnormality No significant chamber size abnormality No significant valvular dysfunction Mild dilated aortic root measuring 42 mm Previewed by: Dr Ghassan Thorpe (Electronically Signed) Final Date: 05 January 2024 17:56
--- NOTE | 2024-01-05 18:12 | P.DS ---
Providers Date of admission: 01/04/24 15:11 Attending physician: Scout Elmore MD Consults: 01/04/24 15:10 Consult Physician Routine Consulting Provider: Hussein Howell Consult Reason/Comments: CP Do you want consulting provider notified?: Yes Primary care physician: Ilene Franks [facility] Course: Diagnoses Chest pain, resolved, evaluated by bicycle mechanic and cleared for discharge Coronary artery disease s/p stents Nicotine dependence Aortic aneurysm 4.3 cm Emphysema with no acute exacerbation Chronic kidney disease stage III Hospital course: Patient is a pleasant 73 years old male with past medical history of coronary artery disease status post stent in the diagonal branch of the left circumflex and chronically occluded right coronary artery Catheter of the heart in 2018, he has baseline ejection fraction of 50 to 55% per echocardiogram on 2021. Presents today with chest pain started this morning about 7.5/10 in severity in the left side nonradiating felt like something heavy sitting on his chest with no relieving or precipitating factors He still smokes about 2 cigarettes/day with recovery and sometimes 4 to 5 cigarettes, he was counseled to quit and he agrees to the nicotine patch No alcohol no illicit drugs. No dyspnea no coughing. No change in urine or bowel habits. No headache dizziness confusion. No chills. He is hemodynamically stable. Labs unremarkable including CBC, BMP and liver enzymes except for creatinine of 1.3 which is at baseline. D-dimer was elevated at 1.9 was troponin x 2 were negative less than 0.012. proBNP is low at 107. CTA of the chest was done because of elevated D-dimer and showing no pulmonary embolism but has emphysema and aortic aneurysm of 4.3 cm Patient is taking aspirin 81 mg at home Patient evaluated by bicycle mechanic who cleared him for discharge as well as the echocardiogram was good. Echocardiogram done today showing ejection fraction 55 to 60% with no other significant abnormality and patient was cleared for discharge by bicycle mechanic Problems and management plan were discussed with the patient and he verbalized understanding and acceptance Patient was found stable and can be discharged home in guarded prognosis however he needs follow-up as an outpatient. Patient was instructed to follow up with PCP Dr. Franks within one week and patient agrees Patient was instructed to follow-up with his bicycle mechanic Dr. Bolivar in 1 week Physical exam Gen: patient is a AAOx3, no distress CVS: S1-S2, RRR, no murmur Lungs: B/L CTA, no wheezing Abdomen: soft, no distention, no tenderness, positive bowel sounds Extremity: no leg edema or induration Time spent more than 35 minutes Patient Condition at Discharge: Stable Plan - Discharge Summary New Discharge Prescriptions: New Metoprolol Succinate (ER) [Toprol XL] 25 mg PO DAILY #30 tab Continue Aspirin 81 mg PO DAILY #30 chew Atorvastatin [Lipitor] 80 mg PO HS Omeprazole 20 mg PO DAILY Nitroglycerin 0.4 mg SL Q5M PRN PRN Reason: Chest Pain Tamsulosin [Flomax] 0.4 mg PO BID Pregabalin [Lyrica] 150 mg PO BID #60 cap Isosorbide Mononitrate ER [Imdur] 60 mg PO DAILY Erythromycin Ophth Oint [Romycin Ophth Oint] 1 applic RIGHT EYE DAILY Cetirizine HCl [Zyrtec] 10 mg PO DAILY Albuterol Inhaler [Ventolin Hfa Inhaler] 2 puff INHALATION RT-Q6H PRN PRN Reason: Shortness Of Breath traZODone HCL [Desyrel] 50 mg PO HS Levothyroxine Sodium [Synthroid] 25 mcg PO DAILY Docusate Sodium [Dok] 100 mg PO BID HYDROcodone/APAP 10-325MG [[place] 10-325] 1 tab PO Q6HR PRN PRN Reason: Pain Ferrous Sulfate [Iron] 325 mg PO DAILY Dorzolamide-Timol 2.23%/0.68% [Cosopt] 1 drop BOTH EYES BID Cyclobenzaprine [Flexeril] 5 mg PO TID No Action Sulfamethox-Tmp 800-160Mg [Bactrim DS 800-160 mg] 1 tab PO Q12HR Discharge Medication List Aspirin 81 mg PO DAILY #30 chew 06/24/18 [Rx] Atorvastatin [Lipitor] 80 mg PO HS 10/29/18 [History] Nitroglycerin 0.4 mg SL Q5M PRN 02/13/19 [History] Omeprazole 20 mg PO DAILY 02/13/19 [History] Cetirizine HCl [Zyrtec] 10 mg PO DAILY 10/20/21 [History] Tamsulosin [Flomax] 0.4 mg PO BID 10/20/21 [History] Albuterol Inhaler [Ventolin Hfa Inhaler] 2 puff INHALATION RT-Q6H PRN 11/14/22 [History] traZODone HCL [Desyrel] 50 mg PO HS 11/14/22 [History] Pregabalin [Lyrica] 150 mg PO BID #60 cap 05/05/23 [Rx] Cyclobenzaprine [Flexeril] 5 mg PO TID 01/04/24 [History] Docusate Sodium [Dok] 100 mg PO BID 01/04/24 [History] Dorzolamide-Timol 2.23%/0.68% [Cosopt] 1 drop BOTH EYES BID 01/04/24 [History] Erythromycin Ophth Oint [Romycin Ophth Oint] 1 applic RIGHT EYE DAILY 01/04/24 [History] Ferrous Sulfate [Iron] 325 mg PO DAILY 01/04/24 [History] HYDROcodone/APAP 10-325MG [[place] 10-325] 1 tab PO Q6HR PRN 01/04/24 [History] Isosorbide Mononitrate ER [Imdur] 60 mg PO DAILY 01/04/24 [History] Levothyroxine Sodium [Synthroid] 25 mcg PO DAILY 01/04/24 [History] Sulfamethox-Tmp 800-160Mg [Bactrim DS 800-160 mg] 1 tab PO Q12HR 01/04/24 [History] Metoprolol Succinate (ER) [Toprol XL] 25 mg PO DAILY #30 tab 01/05/24 [Rx] Follow up Appointment(s)/Referral(s): Sixto Bolivar MD [STAFF PHYSICIAN] - 1 Week Ilene Franks MD [Primary Care Provider] - 1-2 days Patient Instructions/Handouts: Chest Pain (DC) Activity/Diet/Wound Care/Special Instructions: heart healthy diet activity is restricted till you see your doctor Discharge Disposition: HOME SELF-CARE
== END 2024-01-05 18:45 | disposition home or self-care (01) ==
LOC: EC 12:13 → 6NMEDSUR 15:11
PROVIDERS: ADMIT Internal Medicine; ATTEND Internal Medicine
DX: R07.89 Other chest pain (principal); I25.10 Atherosclerotic heart disease of native coronary artery without angina pectoris; J43.9 Emphysema, unspecified; I12.9 Hypertensive chronic kidney disease with stage 1 through stage 4 chronic kidney disease, or unspecified chronic kidney disease; N18.30 Chronic kidney disease, stage 3 unspecified; I71.21 Aneurysm of the ascending aorta, without rupture; I25.82 Chronic total occlusion of coronary artery; E78.5 Hyperlipidemia, unspecified; R79.89 Other specified abnormal findings of blood chemistry; R42 Dizziness and giddiness; M85.80 Other specified disorders of bone density and structure, unspecified site; F17.210 Nicotine dependence, cigarettes, uncomplicated; Z79.890 Hormone replacement therapy; Z79.82 Long term (current) use of aspirin; Z79.899 Other long term (current) drug therapy; Z95.5 Presence of coronary angioplasty implant and graft
CPT/HCPCS: 96372 ×2; 96375; 96374; 99285; 36415; 94760; 93005; 93306; 85379; 83880; 80053; 83735; 84484; 85025; 85610; 85730; 71046; 71275; G0378 ×2; S4990 ×2; J1644 ×2; J3490; J1170; Q9967

== ENCOUNTER → 2024-05-20 | Outpatient (CLI) | payer MEDICARE, OTHER ==
--- NOTE | 2024-05-20 11:24 | US ---
EXAMINATION TYPE: US abdomen complete DATE OF EXAM: 05/20/2024 COMPARISON: CT 2019, US 2010 CLINICAL INDICATION: Male, 73 years old with history of R11.10 VOMITING; Abdomen pain and N/V x 2 wee ks TECHNIQUE: Grayscale and color Doppler imaging of the abdomen was performed. FINDINGS: EXAM MEASUREMENTS: Liver Length: 16.5 cm. Normal less than 15.5 cm CBD: 0.9 cm Spleen: 10.4 cm Right Kidney: 9.7 x 4.3 x 4.9 cm Left Kidney: 9.2 x 4.8 x 5.0 cm Pancreas: obscured by overlying midline bowel gas Liver: course echotexture Gallbladder: surgically absent Evidence for sonographic Maria's sign: no CBD: wnl Spleen: 0.9cm cyst Right Kidney: wnl Left Kidney: wnl Upper IVC: wnl Abd Aorta: proximal and mid portions obscured by overlying midline bowel gas, distal portion appears wnl IMPRESSION: 1. Mild hepatomegaly [facility], , 05/20/2024 11:21 AM
== END | disposition home or self-care (01) ==
LOC: RADUSWWP 06:59
PROVIDERS: ATTEND Internal Medicine
DX: R11.10 Vomiting, unspecified (principal); R16.0 Hepatomegaly, not elsewhere classified
CPT/HCPCS: 76700

== ENCOUNTER → 2024-06-20 | Outpatient (CLI) | payer MEDICARE, OTHER ==
--- NOTE | 2024-06-21 07:16 | XR ---
EXAMINATION TYPE: XR KUB DATE OF EXAM: 06/20/2024 3:39 PM COMPARISON: None. CLINICAL INDICATION: Male, 73 years old with history of N20.0 CALCULUS OF KIDNEY, TECHNIQUE: XR KUB view(s) obtained. FINDINGS: There is a normal bowel gas pattern. Abundant fecal debris is through the colon. Correlate for consti pation. Psoas margins are normal. No organomegaly is present. A 1.1 cm calcification over the right renal pelvis is not excluded. This could be within fecal debris . IMPRESSION: 1. Correlate for fecal retention and constipation. 2. 1.1 cm right renal calcification not excluded. This could be within fecal debris. [facility], , 06/21/2024 7:14 AM
== END | disposition home or self-care (01) ==
LOC: RADXRMAIN 14:43
PROVIDERS: ATTEND Urology
DX: N20.0 Calculus of kidney (principal); K59.09 Other constipation
CPT/HCPCS: 74018

== ENCOUNTER 2024-09-26 12:45 | Day surgery (SDC) | payer MEDICARE, OTHER ==
[2024-09-26 13:24] VITALS: TEMP 97.9
[2024-09-26] MEDS: LACTATED RINGERS 1,000 ML IV ONE (13:25)
[2024-09-26] MEDS ORDERED: PROPOFOL 10 MG/ML 20 ML VIAL IV ONE (13:46)
--- NOTE | 2024-09-26 13:53 | P.GSHP ---
History of Present Illness H&P Date: 09/26/24 Chief Complaint: Abnormal stool study 74-year-old male recently had a stool test positive for Cologuard. Patient without bowel complaints. He was scheduled for colonoscopy history however the patient was having significant diarrhea yesterday morning and could not come into the hospital to have it performed. He does not believe he is ever had a colonoscopy before. Says his father from cancer but he is unsure what type. Is not aware of any colon cancer history in the family. Past Medical History Past Medical History: Asthma, Coronary Artery Disease (CAD), COPD, CVA/TIA, Hyperlipidemia, Myocardial Infarction (MT), Osteoarthritis (OA), Pneumonia, Prostate Disorder, Respiratory Disorder, Seizure Disorder Additional Past Medical History / Comment(s): COPD/Asthma, SOB with streneous activity, Coronary artery disease, Diverticulosis. Seizure disorder (NONE IN MANY YEARS) Degenerative Disc Disease with Astimulator placeme. He suffers from BPH, carpal tunnel disease, arrested several time at time heart attack (2017) Pt reports he may have had a TIA/CVA (2019 or 2020), blind in rt eye and cataracts in Left eye Last Myocardial Infarction Date:: 06/22/18 History of Any Multi-Drug Resistant Organisms: None Reported Past Surgical History: Adenoidectomy, Back Surgery, Cholecystectomy, Heart Catheterization With Stent, Orthopedic Surgery, Tonsillectomy Additional Past Surgical History / Comment(s): Multiple back surgeries including a pain stimulator in place/hardware, R knee surgery with hardware, L rotator cuff repair x 4/cadaver bone, colonoscopy Past Anesthesia/Blood Transfusion Reactions: No Reported Reaction Date of Last Stent Placement:: 06/22/18 Smoking Status: Former smoker - Past Family History Father Family Medical History: Cancer Additional Family Medical History / Comment(s): Liver cancer. Mother Additional Family Medical History / Comment(s): Brain aneurysm Sister(s) Family Medical History: Cancer Additional Family Medical History / Comment(s): Lung cancer Brother(s) Family Medical History: No Reported History Family Family Medical History: Unable to Obtain Medications and Allergies Home Medications Medication Instructions Recorded Confirmed Type Aspirin 81 mg PO DAILY #30 chew 06/24/18 09/26/24 Rx Atorvastatin [Lipitor] 80 mg PO HS 10/29/18 09/26/24 History Nitroglycerin 0.4 mg SL Q5M PRN 02/13/19 09/26/24 History Omeprazole 20 mg PO DAILY 02/13/19 09/26/24 History Cetirizine HCl [Zyrtec] 10 mg PO DAILY 10/20/21 09/26/24 History Tamsulosin [Flomax] 0.4 mg PO BID 10/20/21 09/26/24 History Albuterol Inhaler [Ventolin Hfa 2 puff INHALATION RT-Q6H PRN 11/14/22 09/26/24 History Inhaler] traZODone HCL [Desyrel] 50 mg PO HS 11/14/22 09/26/24 History Pregabalin [Lyrica] 150 mg PO BID #60 cap 05/05/23 09/26/24 Rx Cyclobenzaprine [Flexeril] 5 mg PO TID 01/04/24 09/26/24 History Docusate Sodium [Dok] 100 mg PO BID 01/04/24 09/26/24 History Dorzolamide-Timol 2.23%/0.68% 1 drop BOTH EYES BID 01/04/24 09/26/24 History [Cosopt] Erythromycin Ophth Oint [Romycin 1 applic RIGHT EYE DAILY 01/04/24 09/26/24 History Ophth Oint] Ferrous Sulfate [Iron] 325 mg PO DAILY 01/04/24 09/26/24 History HYDROcodone/APAP 10-325MG [[place] 1 tab PO Q6HR PRN 01/04/24 09/26/24 History 10-325] Isosorbide Mononitrate ER [Imdur] 60 mg PO DAILY 01/04/24 09/26/24 History Levothyroxine Sodium [Synthroid] 25 mcg PO DAILY 01/04/24 09/26/24 History Metoprolol Succinate (ER) [Toprol 25 mg PO DAILY #30 tab 01/05/24 09/26/24 Rx XL] Allergies Allergy/AdvReac Type Severity Reaction Status Date / Time No Known Allergies Allergy Verified 09/26/24 13:00 Surgical - Exam Vital Signs Temp Pulse Resp BP Pulse Ox 97.9 F 72 18 132/64 94 L 09/26/24 13:14 09/26/24 13:14 09/26/24 13:14 09/26/24 13:14 09/26/24 13:14 Physical exam: General: Well-developed, well-nourished HEENT: Normocephalic, sclerae nonicteric Abdomen: Nontender, nondistended Extremities: No edema Neuro: Alert and oriented Assessment and Plan (1) Abnormal stool test Narrative/Plan: Will proceed with colonoscopy at this time. Current Visit: Yes Status: Acute Code(s): R19.5 - OTHER FECAL ABNORMALITIES SNOMED Code(s): 443631166
--- NOTE | 2024-09-26 14:04 | P.PCN ---
Date of Procedure: 09/26/24 Procedure(s) Performed: PREOPERATIVE DIAGNOSIS: Abnormal Cologuard test POSTOPERATIVE DIAGNOSIS: Retained stool, diverticulosis, unable to complete study PROCEDURE: Colonoscopy ANESTHESIA: MAC SURGEON: Shane Yuan M.D. SPECIMENS: None ENDOSCOPIC PROCEDURE: The patient was placed on the endoscopy table in the left decubitus position. The Olympus colonoscope was inserted into the anus and passed under direct visualization to the distal descending colon. The patient had significant volume of retained solid stool throughout the rectosigmoid region. I was unable to visualize the mucosal surfaces well at all. The scope was withdrawn. A few diverticula were seen. Given the poor prep we aborted the procedure at this point. Digital rectal examination was normal. The patient was taken to the recovery room in stable condition per anesthesia guidelines. RECOMMENDATIONS: Will bring patient back after 2-day bowel cleanse for colonoscopy.
[2024-09-26 14:11] VITALS: RESP 16
[2024-09-26 14:21] VITALS: BP 98/57; PULSE 72
== END 2024-09-26 14:45 | disposition home or self-care (01) ==
LOC: ORWHC2ENDO 12:45
PROVIDERS: ATTEND Surgery
DX: Z12.11 Encounter for screening for malignant neoplasm of colon (principal); K57.30 Diverticulosis of large intestine without perforation or abscess without bleeding; E78.5 Hyperlipidemia, unspecified; G40.909 Epilepsy, unspecified, not intractable, without status epilepticus; I25.10 Atherosclerotic heart disease of native coronary artery without angina pectoris; I25.2 Old myocardial infarction; M19.90 Unspecified osteoarthritis, unspecified site; E07.9 Disorder of thyroid, unspecified; N40.0 Benign prostatic hyperplasia without lower urinary tract symptoms; Z79.890 Hormone replacement therapy; Z86.73 Personal history of transient ischemic attack (TIA), and cerebral infarction without residual deficits; Z87.891 Personal history of nicotine dependence; Z90.49 Acquired absence of other specified parts of digestive tract; Z90.89 Acquired absence of other organs; Z80.0 Family history of malignant neoplasm of digestive organs; Z79.899 Other long term (current) drug therapy
CPT/HCPCS: 45378; J2704